=== PATIENT | female | born 1940 | race Caucasian/White ===

== ENCOUNTER 2018-05-24 10:16 | Emergency (ER) | payer MEDICARE, OTHER, SELFPAY ==
[2018-05-24 10:17] VITALS: BP 161/89; PULSE 56; RESP 14; TEMP 36.2; O2SAT 98; BMI 37.6
[2018-05-24 10:54] VITALS: BP 153/101; PULSE 53; RESP 15; O2SAT 95; O2SAT 97
--- NOTE | 2018-05-24 11:06 | ED.VISSUMM ---
- ER Visit Summary Date of Service: 05/24/18 Chief Complaint: Shortness of breath History of Present Illness: The patient is a 78 F Lady of intermittent shortness of breath for weeks. Denies any chest pain. No hemoptysis. No history of DVT or PE. Denies any leg pain or swelling. No recent travel or surgery. No recent hospitalization. She does get more short of breath with exertion primarily walking steps but again no chest pain. Currently she is symptom-free. She denies any fever. She has had a mild nonproductive cough. She has no known cardiac history of intermittent A. fib. No lung disease. Physical Examination: Female no acute distress. Vital signs are stable she is bradycardic at 56. Pulse ox 90% on room air sitting in bed. Currently she is symptom-free. H EENT exam unremarkable. Neck nontender no JVD. Lungs clear to auscultation bilaterally. Heart regular rhythm rate about 55 no murmur. Abdomen soft nontender normal bowel sounds no peritoneal signs. She is moving all 4 extremities. They are equal and symmetrical. Calves are nontender without edema or cords. Dorsi plantar flexion intact. Equal symmetrical corn cutter strength. Back exam nontender. Neurologically she is awake and alert with no focal motor or sensory deficits. Test Results: EKG shows sinus bradycardia rate of 53 with no acute ischemic changes. No acute abnormality. No change from prior EKG in 2015. CBC shows a white count of 10. Hemoglobin of 12. Electrolytes are unremarkable creatinine is 1.43. Glucose 190. Normal gap. She is on Coumadin her INR is 2.0. Her troponin is normal. Chest x-ray shows mild vascular seen consistent with possibly mild CHF. Emergency Department Course and Treatment: With intermittent shortness of breath. Has basically unremarkable exam. Treatment Plan: Repeat exam the patient is doing well at 1412. I went over all test results of both her and her and they are comfortable with her being discharged to home. She will follow-up with her primary care physician Dr. Moon at the [facility] Disposition: Discharge Impression: Acute dyspnea of uncertain etiology Renal insufficiency This note was generated with [employer] dictation software. It may contain incorrect words, spelling, and punctuation that were not noted in review of the chart prior to signing ED Disposition - Plan for ED Patient: Chief Complaint: Shortness of Breath Referrals: Marcelino Moon, [Primary Care Provider] -
--- NOTE | 2018-05-24 11:09 | ED.DCSUM_ITS ---
- ER Visit Summary Date of Service: 05/24/18 Chief Complaint: Shortness of breath History of Present Illness: The patient is a 78 F Lady of intermittent shortness of breath for weeks. Denies any chest pain. No hemoptysis. No history of DVT or PE. Denies any leg pain or swelling. No recent travel or surgery. No recent hospitalization. She does get more short of breath with exertion primarily walking steps but again no chest pain. Currently she is symptom-free. She denies any fever. She has had a mild nonproductive cough. She has no known cardiac history of intermittent A. fib. No lung disease. Physical Examination: Female no acute distress. Vital signs are stable she is bradycardic at 56. Pulse ox 90% on room air sitting in bed. Currently she is symptom-free. H EENT exam unremarkable. Neck nontender no JVD. Lungs clear to auscultation bilaterally. Heart regular rhythm rate about 55 no murmur. Abdomen soft nontender normal bowel sounds no peritoneal signs. She is moving all 4 extremities. They are equal and symmetrical. Calves are nontender without edema or cords. Dorsi plantar flexion intact. Equal symmetrical dining room hostess strength. Back exam nontender. Neurologically she is awake and alert with no focal motor or sensory deficits. Test Results: EKG shows sinus bradycardia rate of 53 with no acute ischemic changes. No acute abnormality. No change from prior EKG in 2015. CBC shows a white count of 10. Hemoglobin of 12. Electrolytes are unremarkable creatinine is 1.43. Glucose 190. Normal gap. She is on Coumadin her INR is 2.0. Her troponin is normal. Chest x-ray shows mild vascular seen consistent with possibly mild CHF. Emergency Department Course and Treatment: With intermittent shortness of breath. Has basically unremarkable exam. Treatment Plan: Repeat exam the patient is doing well at 1412. I went over all test results of both her and her and they are comfortable with her being discharged to home. She will follow-up with her primary care physician Dr. Moon at the [facility] Disposition: Discharge Impression: Acute dyspnea of uncertain etiology Renal insufficiency This note was generated with [employer] dictation software. It may contain incorrect words, spelling, and punctuation that were not noted in review of the chart prior to signing ED Disposition - Plan for ED Patient: Chief Complaint: Shortness of Breath Referrals: Marcelino Moon, [Primary Care Provider] -
[2018-05-24 11:35] LABS: Absolute Lymphocyte Count 2.45 X10^3/ul (0.83-4.51); Absolute Neutrophil Count 6.8 X10^3/uL (2.0-7.7); Basophil# 0.05 X10^3/uL; Basophil% 0.5 % (0-1); Eosinophil# 0.47 X10^3/uL; Eosinophils% 4.5 % (0-5); Hematocrit 39.2 % (37-47); Hemoglobin 12.8 g/dl (12.0-15.0); Lymphocyte # 2.45 X10^3/ul (4.0); Lymphocyte % 23.4 % (19-41); Mean Corp Hgb Conc 32.7 g/gl (32-36); Mean Corpuscular Volume 91.8 fL (81-99); Mean Platelet Vol. 11.7 fl (6.2-12.0); Monocyte# 0.65 X10^3/uL; Monocyte% 6.2 % (0-10); Neutrophil # 6.81 X10^3/uL (2.7-7.7); Neutrophil % 65.2 % (47-70); Platelet Count 274 K/mm3 (150-450); RBC Distribution Width CV 14.3 % (11.6-14.6); Red Blood Count 4.27 M/mm3 (4.2-5.4); White Blood Count 10.5 K/mm3 (4.4-11.0)
[2018-05-24 11:36] LABS: POSITIVE COUNT NO; POSITIVE DIFFERENTIAL NO; POSITIVE MORPHOLOGY NO
[2018-05-24 11:40] LABS: Prothrombin Time (Protime)PT. 23.1 SECONDS (11.7-14.9)
[2018-05-24 11:46] VITALS: BP 158/58; PULSE 53; RESP 14; O2SAT 96
[2018-05-24 11:48] LABS: Anion Gap 8 (5-15); BUN 40 mg/dL (7-18); Calcium,Total 8.8 mg/dL (8.5-10.1); Chloride 106 mmol/L (98-107); Creatinine, Serum 1.43 mg/dL (0.55-1.02); EST Glomerular Filtration Rate 38 mL/min (>60); Est Glom Filt Rate - Afr Amer 46 mL/min (>60); Estimated Creatinine Clearance 25.23 ml/min; Glucose 190 mg/dL (74-106); Potassium 4.4 mmol/L (3.5-5.1); Sodium Level 138 mmol/L (136-145)
[2018-05-24 13:34] VITALS: BP 159/57; PULSE 53; RESP 16; O2SAT 97
--- NOTE | 2018-05-24 14:14 | ED.DEP ---
ED Disposition - Plan for ED Patient: Disposition: Home or Assisted Living Chief Complaint: Shortness of Breath Instructions: ED Dyspnea Shortness of Breath Referrals: Marcelino Moon DO [Primary Care Provider] - As soon as possible Additional Instructions: Return if feeling worse. Otherwise follow-up your primary care physician.
[2018-05-24 14:30] VITALS: BP 167/51; PULSE 52; RESP 16; O2SAT 96
== END 2018-05-24 14:38 | disposition home or self-care (01) ==
PROVIDERS: Emergency Provider Emergency Medicine; Family Provider Student in an Organized Health Care Education/Training Program; PCP Student in an Organized Health Care Education/Training Program
DX: R06.00 Dyspnea, unspecified (principal); N28.9 Disorder of kidney and ureter, unspecified; R05 Cough; E11.9 Type 2 diabetes mellitus without complications; I10 Essential (primary) hypertension; E78.00 Pure hypercholesterolemia, unspecified; I48.91 Unspecified atrial fibrillation
CPT/HCPCS: 71045; 80048; 84484; 85025; 85610; 93005; 99285; A4216

== ENCOUNTER 2018-10-02 11:20 | Emergency (ER) | payer MEDICARE, OTHER, SELFPAY ==
[2018-10-02 11:20] VITALS: BP 200/73; PULSE 54; RESP 20; TEMP 36.1; O2SAT 96; BMI 38.9
--- NOTE | 2018-10-02 11:48 | EKG12_ITS ---
Test Reason : SOB Blood Pressure : / mmHG Vent. Rate : 052 BPM Atrial Rate : 052 BPM P-R Int : 196 ms QRS Dur : 104 ms QT Int : 472 ms P-R-T Axes : 048 016 045 degrees QTc Int : 438 ms Sinus bradycardia Otherwise normal ECG Confirmed by ALEJO DUTTA, SINA ([id number]), managing editor PHILL VAN ([id number]) on 10/04/2018 2:37:05 PM Referred By: LENNOX Confirmed By:SINA DHILLON MD
--- NOTE | 2018-10-02 11:48 | RAD_ITS ---
STUDY: X-RAY CHEST REASON FOR EXAM: Female, 78 years old. Shortness of breath for several weeks TECHNIQUE: PA and lateral views of the chest. COMPARISON: 05/24/2018 FINDINGS: EKG leads overlie the chest Lungs are expanded with superimposed interstitial edema and bilateral pleural effusions. Findings suggest CHF. Follow-up recommended to assure resolution. There is no demonstrated pleural abnormality. Normal size heart. Normal mediastinum and jamila. Normal visualized pulmonary arteries. There is atherosclerotic calcification of the aortic arch with tortuosity. There are diffuse degenerative changes of the visualized thoracic spine. Normal visualized ribs, clavicles, and shoulders. There is no demonstrated abnormality of the visualized soft tissue structures of the upper abdomen. RAD/Chest PA and Lateral IMPRESSION: Diffuse interstitial edema with bilateral pleural effusions. Follow-up recommended to assure resolution Electronically Signed: Anthony Rey MD at 12:57 EST , Service support ,
[2018-10-02 12:15] LABS: Absolute Lymphocyte Count 2.11 X10^3/ul (0.83-4.51); Absolute Neutrophil Count 8.8 X10^3/uL (2.0-7.7); Basophil# 0.03 X10^3/uL; Basophil% 0.3 % (0-1); Eosinophil# 0.31 X10^3/uL; Eosinophils% 2.6 % (0-5); Hematocrit 36.5 % (37-47); Hemoglobin 12.1 g/dl (12.0-15.0); Lymphocyte # 2.11 X10^3/ul (4.0); Lymphocyte % 17.6 % (19-41); Mean Corp Hgb Conc 33.2 g/gl (32-36); Mean Corpuscular Hgb 30.3 pg (27.0-32.0); Mean Corpuscular Volume 91.5 fL (81-99); Monocyte# 0.75 X10^3/uL; Monocyte% 6.3 % (0-10); Neutrophil # 8.76 X10^3/uL (2.7-7.7); Neutrophil % 73.1 % (47-70); Platelet Count 269 K/mm3 (150-450); RBC Distribution Width CV 14.4 % (11.6-14.6); RBC Distribution Width SD 47.1 fl (35.1-43.9); Red Blood Count 3.99 M/mm3 (4.2-5.4)
[2018-10-02 12:16] LABS: POSITIVE COUNT NO; POSITIVE DIFFERENTIAL NO; POSITIVE MORPHOLOGY NO
--- NOTE | 2018-10-02 12:17 | ED.DCSUM_ITS ---
- ER Visit Summary Date of Service: 10/02/18 Chief Complaint: Shortness of breath History of Present Illness: The patient is a 78 F presents with shortness of breath that has been waxing and waning over the past 2 months. Patient states this has gradually gotten worse throughout the day today. Patient went to an urgent care and was referred here. Patient states her breathing is worse if she walks up steps. Patient states her breathing improves when she stops to rest. Patient admits to a cough but denies any sputum. Patient also admits to some postnasal drainage. Patient denies any fevers but admits to subjective chills. Patient admits to some increased swelling of her lower legs. Patient states she has a history of lymphedema. Patient also states she has been having intermittent near syncopal episodes for the past year. Patient was evaluated in the emergency department for this. Patient states she has an appointment with a neurologist in 2 weeks. Physical Examination: Vital signs showed an elevated blood pressure of 200/73. Patient is afebrile. Patient is in no acute distress. Oral mucosa was pink and moist. Neck is supple. Trachea is midline. There is no JVD noted. Heart was regular and bradycardic. Lungs show bibasilar Rales. There is good respiratory effort noted. Abdomen is soft. Bowel sounds are normal. There is no tenderness. Extremities are intact. There is 2+ edema of the lower extremities bilaterally. Cranial nerves II through XII are intact. There are no focal motor or sensory deficits noted. Skin is warm and dry. There is no jaundice noted. Test Results: EKG showed sinus bradycardia with a rate of 52. There are no acute ST or T wave changes noted. Chest x-ray shows some evidence of congestive heart failure. CBC shows a slight leukocytosis of 12.0. Creatinine was slightly elevated at 38 and 1.4 however, this is stable for the patient. INR was therapeutic at 2.7. BNP was slightly elevated at 507. Emergency Department Course and Treatment: On reevaluation the patient's oxygen saturation was 95% on room air. However, when the patient stood to ambulate upon discharge her oxygen saturation dropped to 89. Patient was ambulated with a pulse oximeter reading and upon walking her oxygen saturation dropped into the upper 80s. Patient states she really wants to go home. Patient was given a dose of Lasix here. Patient was instructed to take another dose of Lasix when she gets home. Patient was instructed to return if her breathing gets worse in any way. Patient and her understood and were agreeable with the plan. All questions were answered. Disposition: Discharged home Impression: Congestive heart failure This note was generated with [employer] dictation software. It may contain incorrect words, spelling, and punctuation that were not noted in review of the chart prior to signing ED Disposition - Plan for ED Patient: Disposition: Home or Assisted Living Chief Complaint: Shortness of Breath Diagnosis: Congestive heart failure Instructions: ED CHF General Referrals: Marcelino Moon DO [Primary Care Provider] - Additional Instructions: Continue your Lasix as prescribed. You may take your afternoon dose when you get home.
[2018-10-02 12:19] LABS: International Normalized Ratio 2.7; Prothrombin Time (Protime)PT. 28.6 SECONDS (11.7-14.9)
[2018-10-02 12:20] LABS: Partial Thromboplast Time 44.3 Seconds (24.1-36.2)
[2018-10-02 12:24] LABS: Anion Gap 8 (5-15); BUN 38 mg/dL (7-18); Calcium,Total 8.8 mg/dL (8.5-10.1); Chloride 103 mmol/L (98-107); Creatinine, Serum 1.41 mg/dL (0.55-1.02); EST Glomerular Filtration Rate 38 mL/min (>60); Est Glom Filt Rate - Afr Amer 46 mL/min (>60); Estimated Creatinine Clearance 25.59 ml/min; Glucose 139 mg/dL (74-106); Potassium 4.7 mmol/L (3.5-5.1); Sodium Level 135 mmol/L (136-145)
[2018-10-02 12:26] VITALS: BP 167/56; BP 174/59; BP 180/74; PULSE 53; PULSE 54; PULSE 57; PULSE 59; RESP 25; TEMP 36.1; O2SAT 94
[2018-10-02 12:34] LABS: BNP,B-Type NATRIURETIC PEPTIDE 507.6 pg/mL (0-100)
[2018-10-02 14:45] VITALS: BP 166/59; PULSE 56; RESP 17; O2SAT 90
[2018-10-02 15:04] VITALS: O2SAT 93
[2018-10-02 15:12] VITALS: BP 166/59; PULSE 54; RESP 16; O2SAT 97
[2018-10-02] MEDS: Furosemide 40 MG Tablet PO (15:12)
== END 2018-10-02 15:21 | disposition home or self-care (01) ==
PROVIDERS: Emergency Provider Emergency Medicine; Family Provider Student in an Organized Health Care Education/Training Program; PCP Student in an Organized Health Care Education/Training Program
DX: I11.0 Hypertensive heart disease with heart failure (principal); I50.41 Acute combined systolic (congestive) and diastolic (congestive) heart failure; G51.0 Bell's palsy; R00.1 Bradycardia, unspecified; E11.9 Type 2 diabetes mellitus without complications; E78.00 Pure hypercholesterolemia, unspecified; I48.91 Unspecified atrial fibrillation; I89.0 Lymphedema, not elsewhere classified; Z79.4 Long term (current) use of insulin; Z79.82 Long term (current) use of aspirin
CPT/HCPCS: 71046; 80048; 83880; 85025; 85610; 85730; 93005; 99284

== ENCOUNTER 2018-10-04 13:52 | Inpatient (IN) | payer MEDICARE, OTHER, SELFPAY ==
[2018-10-04] VITALS (11 sets, daily range): BP systolic 152–171; BP diastolic 75–115; PULSE 80–97; RESP 16–18; TEMP 36.6–36.9; O2SAT 90–94; BMI 37.9; BMI 37.7
--- NOTE | 2018-10-04 14:06 | EKG12_ITS ---
Test Reason : PALPS Blood Pressure : / mmHG Vent. Rate : 090 BPM Atrial Rate : 241 BPM P-R Int : 000 ms QRS Dur : 102 ms QT Int : 384 ms P-R-T Axes : 000 015 056 degrees QTc Int : 469 ms Atrial fibrillation Abnormal ECG Confirmed by JOLENE SHIN MD ([id number]), development editor PHILL VAN ([id number]) on 10/08/2018 8:47:43 AM Referred By: ORA Confirmed By:JOLENE SHIN MD
--- NOTE | 2018-10-04 14:06 | RAD_ITS ---
STUDY: X-RAY CHEST REASON FOR EXAM: Female, 78 years old. Syncopal episode. TECHNIQUE: Single AP portable view of the chest. COMPARISON: Comparison is made with prior study dated October 02, 2018. FINDINGS: EKG electrodes are seen. Since prior study, the CHF has improved. Residual changes persist in the right infrahilar region suggestive of a possible scarring. Mild elevation of the right hemidiaphragm. There is no demonstrated pleural abnormality. There is mild cardiac enlargement. Normal mediastinum and jamila. Normal visualized pulmonary arteries. There is atherosclerotic calcification of the aortic arch with tortuosity. There are diffuse degenerative changes of the visualized thoracic spine. Normal visualized ribs, clavicles, and shoulders. There is no demonstrated abnormality of the visualized soft tissue structures of the upper abdomen. RAD/Chest 1 View (Portable) IMPRESSION: The CHF has cleared. Minimal residual increased markings in the right infrahilar region suggestive of atelectasis and/or scarring. Electronically Signed: Alvaro Martinez MD at 14:38 EST Tel [phone], Service support ,
--- NOTE | 2018-10-04 14:06 | CT_ITS ---
STUDY: CT BRAIN WITHOUT CONTRAST REASON FOR EXAM: Female, 78 years old. Near syncope. History of Garcia's palsy. RADIATION DOSAGE (If Supplied By Facility): CTDIvol = ( 44.99 ) mGy, DLP = ( 779.24 ) mGycm TECHNIQUE: Transaxial CT imaging of the brain was performed without administration of intravenous contrast material. Individualized dose optimization techniques were used for this CT. COMPARISON: Comparison is made with prior examination dated September 23, 2013. FINDINGS: Normal soft tissue structures. Normal calvarium. There is mild cerebral atrophy with widening of the extra-axial spaces and ventricular dilatation. Normal white matter tracts of the cerebral hemispheres. Normal basal ganglia and thalami. Normal brainstem. Normal cerebellum. There is no intracranial hemorrhage. There are no findings of an acute ischemic infarction. Atherosclerotic calcification of the cavernous portions of the internal carotid arteries bilaterally. Normal visualized paranasal sinuses. CT/Brain/Head without Contrast IMPRESSION: Chronic involutional changes of the brain. Electronically Signed: Alvaro Martinez MD at 14:39 EST Tel [phone], Service support ,
[2018-10-04] MEDS: 0.9% Normal Saline 1,000 ML 150 ML IV (14:16)
[2018-10-04 14:19] LABS: Absolute Lymphocyte Count 2.63 X10^3/ul (0.83-4.51); Basophil# 0.04 X10^3/uL; Basophil% 0.3 % (0-1); Eosinophil# 0.35 X10^3/uL; Hematocrit 40.2 % (37-47); Hemoglobin 13.1 g/dl (12.0-15.0); Lymphocyte # 2.63 X10^3/ul (4.0); Lymphocyte % 22.3 % (19-41); Mean Corp Hgb Conc 32.6 g/gl (32-36); Mean Corpuscular Hgb 29.7 pg (27.0-32.0); Mean Corpuscular Volume 91.2 fL (81-99); Mean Platelet Vol. 10.8 fl (6.2-12.0); Monocyte# 0.77 X10^3/uL; Monocyte% 6.5 % (0-10); Neutrophil % 67.7 % (47-70); Platelet Count 290 K/mm3 (150-450); RBC Distribution Width CV 14.8 % (11.6-14.6); RBC Distribution Width SD 48.9 fl (35.1-43.9); Red Blood Count 4.41 M/mm3 (4.2-5.4); White Blood Count 11.8 K/mm3 (4.4-11.0)
[2018-10-04 14:28] LABS: POSITIVE COUNT NO; POSITIVE DIFFERENTIAL NO; POSITIVE MORPHOLOGY NO
[2018-10-04 14:34] LABS: Anion Gap 8 (5-15); BUN 38 mg/dL (7-18); BUN/Creat Ratio 26.8 RATIO (10-20); Calcium,Total 9.3 mg/dL (8.5-10.1); Chloride 106 mmol/L (98-107); Creatinine, Serum 1.42 mg/dL (0.55-1.02); EST Glomerular Filtration Rate 38 mL/min (>60); Est Glom Filt Rate - Afr Amer 46 mL/min (>60); Estimated Creatinine Clearance 25.41 ml/min; Glucose 111 mg/dL (74-106); Potassium 4.5 mmol/L (3.5-5.1); Sodium Level 139 mmol/L (136-145)
--- NOTE | 2018-10-04 14:47 | NURSING ---
pt back from ct scan. prior to going down had 3.5 sec pause on monitor. dr. lindsay shown and printed for chart
--- NOTE | 2018-10-04 15:11 | ED.RN ---
attempted to do orthostatic vitals and when pt sat to side of bed and monitor displayed 5.8sec pause and pt symptomatic with saying ok here comes one of my spells i have. hold on a minute pt back into bed and rn discharge and dr. lindsay aware.
--- NOTE | 2018-10-04 15:53 | ED.VISSUMM ---
- ER Visit Summary Date of Service: 10/04/18 Chief Complaint: Syncope History of Present Illness: The patient is a [address] Rogers and Dr. Moon. She has a history of paroxysmal atrial fibrillation. She reports that for approximately 1 year off and on she is having episodes of near syncope. States that this seems to have worsened over the past week. States that today she has had 3-4 episodes where she gets a weird sensation that comes over the back of her head and she feels as though she is going to pass out. States that lasts a few seconds. She denies any chest pain with it. She does admit to a little palpitations. Patient reports that this is unchanged or affected by standing. However, she had an episode while she was standing today. She had a syncopal episode and fell and hit her head on the refrigerator. She denies any neck, back, shoulder, wrist, or hip pain. Physical Examination: Vitals: Stable. Afebrile. General: Well-nourished and well-developed. Head: Normocephalic atraumatic. Neck: Supple, no lymphadenopathy. No JVD. Nontender. Cardiovascular: Irregularly irregular rhythm with a 2 out of 6 systolic murmur. Respiratory: No respiratory distress. Clear to auscultation bilaterally. Abdominal: Soft, nontender, nondistended, normal bowel sounds. No guarding, rebound, or peritoneal signs. Back: Nontender. Extremities: Nontender, no edema. Skin: Normal color, no rash. Neurologic: Alert and oriented ?3. Cranial nerves II through XII are intact. Normal strength and sensation. Psych: Normal affect. Test Results: EKG is A. fib at 90 with no ischemic changes. Chest x-ray shows cardiomegaly. CT brain shows chronic changes. Troponin is negative. INR is pending. Chem-7 is more for glucose 111, BUN of 38, creatinine 1.42. CBC is more for white count of 11.8. Emergency Department Course and Treatment: While on the monitor in the emergency department the patient had multiple prolonged pauses of approximately 3-5 seconds that consistent with her symptomatic episodes. She had 1 of these during orthostatic vital signs and was near syncopal and helped back to bed. Treatment Plan: Patient was discussed with Dr. Spencer. She is currently on flecainide and Toprol. She will be admitted to the hospital and have medication adjustments. Patient was then discussed with Dr. Bowden. Disposition: Admitted in stable condition. Impression: 1. Atrial fibrillation on flecainide/Toprol. 2. Syncope. 3. Coumadin coagulopathy. This note was generated with [employer] dictation software. It may contain incorrect words, spelling, and punctuation that were not noted in review of the chart prior to signing ED Disposition - Plan for ED Patient: Chief Complaint: Syncope Referrals: Marcelino Moon DO [Primary Care Provider] -
[2018-10-04 16:05] LABS: International Normalized Ratio 3.1; Prothrombin Time (Protime)PT. 32.3 SECONDS (11.7-14.9)
--- NOTE | 2018-10-04 16:22 | PCM.HP.STD ---
Problem List (1) Garcia's palsy Status: Resolved Comment: left (2) CKD (chronic kidney disease) stage 2, GFR 60-89 ml/min Status: Chronic (3) Cerebrovascular disease Status: Chronic Comment: asympt small left thalamic infarct (4) Diabetes mellitus Status: Chronic (5) Dyslipidemia Status: Chronic (6) Gout Status: Chronic (7) HLD (hyperlipidemia) Status: Chronic (8) HTN (hypertension) Status: Chronic (9) Hypothyroid Status: Chronic (10) Osteoporosis Status: Chronic (11) Paroxysmal atrial fibrillation Status: Chronic Comment: on coumadin History of Present Illness Date of Admission: 10/04/18 Chief Complaint: Pre-syncope, shortness of breath. The patient is a 78 year old F who presents emergency room due to recurrent episodes of presyncope. Patient states she has had these episodes for approximately 1 year, increasing in severity. Patient states episodes usually last only a few minutes where she feels like she is going to pass out and then resolve on their own. She denies dizziness, lightheadedness, vision changes. Denies chest pain. Patient states today she had recurrent episodes of presyncope frequently throughout the day and decided to seek medical attention. Patient states she had a syncopal episode with fall in June 2018. She did not seek medical attention at that time. Patient follows with Dr. Morfin, F cardiology for paroxysmal atrial fibrillation. Patient states she came to the emergency room this week on Sunday where she was told she had CHF. She reports she refused admission at that time and decided to go home. She states she has had increased shortness of breath, lower extremity and abdominal swelling. She denies recent echo. Denies other cardiac history. She has a past medical history of chronic kidney disease stage II, hypertension, hyperlipidemia, hypothyroidism, osteoporosis, history of CVA, type 2 diabetes mellitus, paroxysmal atrial for ablation on chronic anticoagulation with Coumadin, gout. Past Medical History Past Medical History (Chronic Problems): Chronic Problems Diabetes mellitus (Chronic) Cerebrovascular disease (Chronic) asympt small left thalamic infarct Paroxysmal atrial fibrillation (Chronic) on coumadin Gout (Chronic) Osteoporosis (Chronic) Hypothyroid (Chronic) Dyslipidemia (Chronic) HTN (hypertension) (Chronic) HLD (hyperlipidemia) (Chronic) CKD (chronic kidney disease) stage 2, GFR 60-89 ml/min (Chronic) Allergies atorvastatin calcium [From Lipitor] Adverse Reaction (Verified 10/04/18 15:45) cough enalapril maleate [From Vasotec] Adverse Reaction (Verified 10/04/18 15:45) cough enalaprilat dihydrate [From Vasotec] Adverse Reaction (Verified 10/04/18 15:45) cough Home Medications: Ambulatory Orders Medication Instructions Recorded Albuterol Inhaler [Ventolin Hfa 2 puff INHALATION Q4H PRN PRN 08/10/15 (SP)] Allopurinol [Zyloprim] 300 mg PO DAILY 08/10/15 Amlodipine [Norvasc] 10 mg PO DAILY 08/10/15 Aspirin [Aspirin, Baby] 81 mg PO DAILY@0800 08/10/15 Cholecalciferol (VIT D3) [Vitamin 2,000 unit PO BID 08/10/15 D] Clonidine Patch [Catapres-Tts3] 0.3 mg TRANSDERM. Q7D 08/10/15 Flecainide [Tambocor] 50 mg PO DAILY 08/10/15 Folic Acid 1 mg PO DAILY@0800 08/10/15 Furosemide [Lasix] 40 mg PO BIDLX 08/10/15 Insulin Glargine,Hum.rec.anlog 27 unit SQ QHS 08/10/15 [Lantus] Insulin Lispro [Humalog] 10 unit SQ TIDCM 08/10/15 Metoprolol(XL)Succ [Toprol Xl 100 mg PO DAILY 08/10/15 (Beta Trang)] Spironolactone [Aldactone] 12.5 mg PO DAILY 08/10/15 Warfarin [Coumadin ([facility])] 4 mg PO SUTFRSA 05/24/18 Levothyroxine Sodium [Synthroid] 200 mcg PO DAILY 10/04/18 Pravastatin [Pravachol] 40 mg PO DAILY 10/04/18 Warfarin Sodium 6 mg PO MOTUWE 10/04/18 Surgical History: - - Tubal ligation Psychiatric History: No pertinent psych hx [employer]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 Denies: Chest Pain, Chest Pressure, Light Headedness Respiratory: Reports: Shortness of breath upon exertion. Denies: Cough, Shortness of breath at rest, Sputum production, Wheezing Gastrointestinal: Denies: Abdominal Pain, Nausea, Vomiting Genitourinary: Denies: Dysuria Musculoskeletal: Denies: Joint Pain, Joint Tenderness Skin: Reports: - - Chronic skin changes bilateral lower extremities with lymphedema. Denies: Rash, Wounds Neurological: Denies: Numbness, Tingling, Focal weakness Psychiatric: Denies: Anxiety, Depression, Homicidal Ideations, Suicidal Ideations Hematologic/ Lymphatic: Denies: Easy Bruising, Easy Bleeding VTE Information - Inpt Only VTE Present on Admission: No VTE Mechan Device Prophylaxis: None VTE Pharm Prophylaxis ordered?: Yes - Physical Exam General: Alert, Oriented x3, Cooperative, No apparent distress HEENT: Atraumatic, PERRLA, EOMI, Normocephalic Oral: Moist Mucosa Neck: Supple, No JVD, Negative Carotid Bruits Lungs: Clear to auscultation, Diminished Cardiovascular: - - Atrial for ablation, rate controlled. No murmur. Abdomen: Bowel Sounds Present, Soft, Non Tender, Non-Distended, Obese Extremities: No clubbing, No cyanosis, Edema - Chronic lymphedema bilateral lower extremities Skin: No rashes, No breakdown, - - Chronic skin changes bilateral lower extremity secondary to lymphedema with scattered intact fluid-filled blisters Musculoskeletal: No Tenderness to Palpation of Joints or Extremities Neurological: Cranial nerves II-XII grossly intact, Neuro grossly intact Psych/Mental Status: Normal Affect, Appropriate Vital Signs Temp Pulse Resp BP Pulse Ox 98.1 F 82 16 159/85 H 90 10/04/18 13:55 10/04/18 14:54 10/04/18 14:54 10/04/18 14:54 10/04/18 14:54 Oxygen Delivery Method Room Air Weight: 207 lb 7.28 oz Body Mass Index (BMI) 37.9 Finger Stick Blood Glucose 140 Laboratory Tests Past 24 Hrs 10/04/18 10/04/18 10/04/18 14:00 14:00 14:20 WBC 11.8 H RBC 4.41 Hgb 13.1 Hct 40.2 MCV 91.2 MCH 29.7 MCHC 32.6 RDW 14.8 H RDW Differential 48.9 H Plt Count 290 MPV 10.8 Immature Gran % (Auto) 0.200 Neut % (Auto) 67.7 Lymph % (Auto) 22.3 [place] % (Auto) 6.5 Eos % (Auto) 3.0 Baso % (Auto) 0.3 Absolute Neuts (auto) 8.0 H Absolute Lymphs (auto) 2.63 Total Counted Not Reportable PT 32.3 H INR 3.1 Sodium 139 Potassium 4.5 Chloride 106 Carbon Dioxide 25.0 Anion Gap 8 BUN 38 H Creatinine 1.42 H Estim Creat Clear Calc 25.41 Est GFR (MDRD) Af Amer 46 L Est GFR (MDRD) Non-Af 38 L BUN/Creatinine Ratio 26.8 H Glucose 111 H Calcium 9.3 Troponin I < 0.015 Assessment/Plan All Active Problems Garcia's palsy (Resolved) 1. Recurrent presyncope- suspect secondary to recurrent multiple prolonged cardiac pauses as noted on telemetry. Monitor telemetry. Check TSH, mag. Obtain echo. Trend enzymes. Hold flecainide. Metoprolol reduced to 50 milligrams daily. Check orthostatic vitals. Fall precautions. Brain CT on admission with chronic changes. 2. Recurrent multiple prolonged cardiac pauses-hold flecainide. Reduce home metoprolol regimen to 50 mg daily. Consult cardiology. Monitor telemetry. 3. Mild acute on chronic diastolic CHF-chest x-ray on admission with improved CHF. Minimal residual increased markings in the right infrahilar region. Echocardiogram 2012 with EF 70%. IV Lasix 40 mg twice daily. Strict I&O. Daily weight. Denzel wraps bilateral lower extremities. Repeat echocardiogram. 4. Chronic lymphedema-Denzel wraps bilateral lower extremities. 5. Paroxysmal atrial fibrillation on chronic anticoagulation with Coumadin-INR 3.1. Rate controlled. Adjustment of flecainide and metoprolol as noted above. 6. Chronic kidney disease stage II- at baseline. Follows with Dr. Hendrickson. Trend BMP. 7. Hypertension-mildly elevated on admission. Continue home amlodipine, clonidine, spironolactone. PRN hydralazine for systolic blood pressure greater than 160. Metoprolol and flecainide regimen reduced. 8. Hyperlipidemia-continue statin. 9. History of CVA-continue aspirin, statin. 10. Type 2 diabetes [id number] AC at bedtime with sliding scale insulin. Continue home Lantus regimen and scheduled Humalog. 11. Hypothyroidism-continue Synthroid regimen. Check TSH. 12. Osteoporosis 13. Gout-continue allopurinol regimen. DVT prophylaxis- coumadin. This patient was seen by MAYRA Luque under the supervision of Dr. Bowden.
--- NOTE | 2018-10-04 17:22 | ECHOD_ITS ---
Reason For Study: CHF Procedure This was a 2D Doppler, Color Flow transthoracic echocardiogram. Exam performed portable in patient room. Left Ventricle Mild concentric left ventricular hypertrophy. The estimated ejection fraction is 75 %. No regional wall motion abnormalities noted. Right Ventricle Mildly dilated right ventricle. Normal systolic function. Atria The left atrium is moderately enlarged. Normal right atrium. Normal atrial septum. Mitral Valve Mild diffuse mitral valve thickening. Moderate mitral annular calcification extending into the posterior leaflet. Mild-Moderate (1-2+) posteriorly directed mitral valve insufficiency. Tricuspid Valve Normal tricuspid valve. Mild (1+) tricuspid valve insufficiency. Right ventricular systolic pressure estimated to be 51 mmHg. Moderate pulmonary hypertension. Aortic Valve Trisinus/trileaflet aortic valve. Mild diffuse aortic valve thickening. Pulmonic Valve Normal pulmonic valve. Trivial pulmonic valve insufficiency. Great Vessels Normal aortic root. Normal arch. Normal inferior vena cava. Inferior vena cava collapse with sniff. Pericardium/Pleural No pericardial effusion. MMode/2D Measurements & Calculations LVIDd: 3.7 cm IVSd: 1.5 cm LVOT diam: 2.0 cm LVIDs: 2.7 cm LVPWd: 1.2 cm LVOT area: 3.1 cm2 RVDd: 3.7 cm FS: 27.4 % Ao root diam: 3.4 cm LAV(MOD-bp): 45.6 ml LVAd ap4: 21.5 cm2 LAV(MOD-bp) Indexed: 23.0 ml/m2 EDV(MOD-sp4): 55.7 ml LAV(MOD-sp2): 49.4 ml EDV(sp4-el): 56.5 ml LAV(MOD-sp4): 41.8 ml LVAs ap4: 11.6 cm2 ESV(MOD-sp4): 18.9 ml ESV(sp4-el): 19.0 ml EF(MOD-sp4): 66.0 % EF(sp4-el): 66.4 % SV(MOD-sp4): 36.8 ml SV(sp4-el): 37.5 ml LA A4 area: 17.4 cm2 LA dimension(2D): 4.9 cm RA A4 area: 18.2 cm2 Time Measurements MV dec time: 0.14 sec Doppler Measurements & Calculations MV E max vineet: 142.9 cm/sec MV V2 max: 168.2 cm/sec MV P1/2t max vineet: 156.3 cm/sec MV max P.3 mmHg MV P1/2t: 112.5 msec MV V2 mean: 100.8 cm/sec MV dec slope: 407.0 cm/sec2 MV mean P.8 mmHg MVA(P1/2t): 2.0 cm2 MV V2 VTI: 31.0 cm MVA(VTI): 2.3 cm2 Ao V2 max: 192.8 cm/sec LV V1 max: 107.7 cm/sec SV(LVOT): 71.5 ml Ao max P.9 mmHg LV V1 max P.6 mmHg Ao V2 mean: 125.1 cm/sec LV V1 mean P.5 mmHg Ao mean P.1 mmHg LV V1 mean: 75.0 cm/sec Ao V2 VTI: 38.6 cm LV V1 VTI: 22.8 cm BAILEY(I,D): 1.8 cm2 BAILEY(V,D): 1.8 cm2 PA V2 max: 126.1 cm/sec TR max vineet: 298.3 cm/sec TR max P.6 mmHg Interpretation Summary Mild concentric left ventricular hypertrophy. The estimated ejection fraction is 75 %. Mildly dilated right ventricle. The left atrium is moderately enlarged. Mild-Moderate (1-2+) posteriorly directed mitral valve insufficiency. Mild (1+) tricuspid valve insufficiency. Right ventricular systolic pressure estimated to be 51 mmHg. Moderate pulmonary hypertension. Compared to echo report dated 03/10/2013, LV function has remained the same, but RVSP has now increased from 30 to 51 mm Hg. Pt now appears to be in atrial fibrillation. Ordering Physician: Kayla Bowden Referring Physician: Marcelino Kerr Performed By: Griselda Posadas RDCS, RVT
[2018-10-04 17:58] LABS: Magnesium 2.2 mg/dL (1.6-2.6); T4 Free Direct 1.75 ng/dL (0.76-1.46); Thyroid Stim Hormone (TSH) 2.04 uIU/mL (0.358-3.74)
[2018-10-04 18:01] LABS: Bedside Glucose 124 mg/dL (70-110)
[2018-10-04] MEDS: Furosemide 40 MG/4 ML Vial IV (18:32)
[2018-10-04] MEDS: Insulin Lispro 100 UNIT/ML INSULN.PEN 10 UNIT SC (18:33)
[2018-10-04] MEDS: Insulin Lispro 100 UNIT/ML INSULN.PEN SC (22:08)
[2018-10-04 22:10] LABS: Bedside Glucose 183 mg/dL (70-110)
[2018-10-04] MEDS: Pravastatin 40 MG Tablet PO (22:11)
[2018-10-04] MEDS: Magnesium Hydroxide 30 ML UDC PO (22:22)
[2018-10-05] VITALS (14 sets, daily range): BP systolic 143–162; BP diastolic 61–82; PULSE 57–108; RESP 16–19; TEMP 36.6–36.9; O2SAT 92–96
--- NOTE | 2018-10-05 05:55 | EKG12_ITS ---
Test Reason : AM EKG Blood Pressure : / mmHG Vent. Rate : 090 BPM Atrial Rate : 094 BPM P-R Int : 000 ms QRS Dur : 100 ms QT Int : 400 ms P-R-T Axes : 000 016 055 degrees QTc Int : 489 ms Atrial fibrillation Abnormal ECG Confirmed by ALEJO DUTTA, SINA ([id number]), school photograph editor PHILL VAN ([id number]) on 10/10/2018 10:57:30 AM Referred By: DR ABURTO Confirmed By:SINA DHILLON MD
[2018-10-05] MEDS: Levothyroxine 100 MCG Tablet 200 MCG PO (05:57)
[2018-10-05 06:56] LABS: Bedside Glucose 122 mg/dL (70-110)
[2018-10-05 07:43] LABS: Absolute Lymphocyte Count 3.39 X10^3/ul (0.83-4.51); Absolute Neutrophil Count 5.6 X10^3/uL (2.0-7.7); Basophil# 0.04 X10^3/uL; Basophil% 0.4 % (0-1); Eosinophil# 0.59 X10^3/uL; Eosinophils% 5.7 % (0-5); Hematocrit 36.9 % (37-47); Hemoglobin 11.9 g/dl (12.0-15.0); Lymphocyte # 3.39 X10^3/ul (4.0); Lymphocyte % 32.5 % (19-41); Mean Corp Hgb Conc 32.2 g/gl (32-36); Mean Corpuscular Hgb 29.6 pg (27.0-32.0); Mean Corpuscular Volume 91.8 fL (81-99); Mean Platelet Vol. 10.7 fl (6.2-12.0); Monocyte# 0.83 X10^3/uL; Neutrophil # 5.58 X10^3/uL (2.7-7.7); Neutrophil % 53.3 % (47-70); Platelet Count 247 K/mm3 (150-450); RBC Distribution Width CV 14.9 % (11.6-14.6); RBC Distribution Width SD 49.7 fl (35.1-43.9); Red Blood Count 4.02 M/mm3 (4.2-5.4); White Blood Count 10.4 K/mm3 (4.4-11.0)
[2018-10-05 07:44] LABS: POSITIVE COUNT NO; POSITIVE DIFFERENTIAL NO; POSITIVE MORPHOLOGY NO
[2018-10-05 07:54] LABS: International Normalized Ratio 3.6
[2018-10-05 07:58] LABS: Anion Gap 8 (5-15); BUN 33 mg/dL (7-18); BUN/Creat Ratio 26.2 RATIO (10-20); Calcium,Total 8.5 mg/dL (8.5-10.1); Chloride 108 mmol/L (98-107); Cholesterol 126 mg/dL (200); Creatinine, Serum 1.26 mg/dL (0.55-1.02); EST Glomerular Filtration Rate 44 mL/min (>60); Est Glom Filt Rate - Afr Amer 53 mL/min (>60); Estimated Creatinine Clearance 28.63 ml/min; Glucose 126 mg/dL (74-106); High Density Lipoprotein 35 mg/dL; Sodium Level 142 mmol/L (136-145); Triglycerides 113 mg/dL; Very Low Density Lipoprotein 23 mg/dL (5-40)
--- NOTE | 2018-10-05 08:52 | STE_ITS ---
Reason For Study: ATRIAL FIBRILLATION Stress Results Protocol: Dobutamine Stress Echocardiogram Maximum Predicted HR: 141 bpm Target HR: 120 bpm % Maximum Predicted HR: 89 % DurationHeart Rate Stage (mm:ss) (bpm) BP DoseComment BASELINE 72 172/78 NSR DSE- 10 MCG 3:17 75 161/6310.00 DSE- 20 MCG 3:12 96 170/7720.00 DSE- 30 MCG 3:56 125 169/6730.00NO SX RECOVERY 99 154/66 Stress Duration: 10:25 mm:ss Maximum Stress HR: 125 bpm Baseline Echocardiogram Findings The estimated ejection fraction is 75 %. Mild diffuse mitral valve thickening. Moderate mitral annular calcification extending into the posterior leaflet. Stress Echo Wall motion Data Resting WM Intermediate WM Stress WM Resting Wall Motion Wall Motion Stress No regional wall motion No regional wall motion abnormalities noted. abnormalities noted. EKG Data The baseline ECG displays normal sinus rhythm. The patient was titrated from 10 mcg to a maximun of 30 mcg of dobutamine during the stress. This was 88% of maximum predicted heart rate. The maximum heart rate attained was 125 beats per minute. During dobutamine infusion, there were no ST or T wave changes noted to suggest ischemia. No clinical angina was noted. No arrhythmias noted. Interpretation Summary The estimated ejection fraction is 75 %. Normal, adequate, dobutamine echocardiogram. Negative for ischemia by EKG and echocardiographic criteria. No anginal symptoms noted. No arrhythmias noted. Baseline hypertension with appropriate blood pressure response to dobutamine. Patient had excellent chronotropic response to dobutamine. Final LVEF of 75-80%. Test terminated due to the attainment of target heart rate. Ordering Physician: Tj^Marlo^^^ Referring Physician: HEIDY BURGESS Performed By: RR
[2018-10-05] MEDS: Folic Acid 1 MG Tablet PO (09:00)
[2018-10-05] MEDS: Aspirin 81 MG TAB.CHEW PO (09:00)
[2018-10-05] MEDS: Allopurinol 300 MG Tablet PO (09:00)
[2018-10-05] MEDS: Metoprolol(XL)Succ 50 MG Tablet PO (10:57)
[2018-10-05] MEDS: Spironolactone 25 MG Tablet 12.5 MG PO (10:57)
[2018-10-05] MEDS: Furosemide 40 MG/4 ML Vial IV (10:58)
[2018-10-05] MEDS: amLODIPine 10 MG Tablet PO (10:58)
[2018-10-05] MEDS: 0.9% NaCl Peripheral Flush Adult/Peds IV (11:04)
--- NOTE | 2018-10-05 11:10 | PCM.CONS.C ---
Problem List (1) Bradycardia Status: Acute (2) Pre-syncope Status: Acute (3) Paroxysmal atrial fibrillation Status: Chronic Comment: on coumadin (4) HTN (hypertension) Status: Chronic Reason for Consult Date of Consultation: 10/05/18 Reason for Consultation: Bradycardia, paroxysmal atrial fibrillation, hypertension, presyncope History of Present Illness: The patient is a 78 year old F, patient of Dr. Arreaga, with a history of atrial fibrillation approximately 5 years in time, no previous CVA, positive diabetes with associated Garcia's palsy, hypertension, hypercholesterolemia, no known coronary disease or stents. Over the past month, the patient has noted new onset fatigue, with associated tiredness, shortness of breath, episodes of lightheadedness, presyncope and a syncopal event in June. In addition during these episodes she develops chest pressure which relieves on its own. Patient cannot recall the last time she had a stress test. The patient sought medical attention last evening in the emergency room for episodes of lightheadedness and dizziness. She was found to have atrial fibrillation with slow ventricular response, with episodes of significant bradycardia and associated lightheadedness and dizziness during those episodes. It was found the patient was on Toprol xl 100 mg p.o.daily and flecainide therapy. The patient was admitted and ruled out for myocardial infarction x3 enzymes sets. She underwent a 2D echo with Doppler this morning which showed hyperdynamic LV function with an EF around 75%, mild to moderate posteriorly directed mitral regurgitation, and an RVSP of approximately 51 mmHg. Patient spontaneously converted back to normal sinus rhythm and underwent a dobutamine echocardiogram this morning. This was negative for inducible ischemia. Patient had excellent chronotropic response to dobutamine therapy. Of note the patient has significant hypertension during her visit in the hospital, which does not appear to be well controlled despite Toprol, Norvasc, and clonidine. patient is on significant clonidine therapy which may be contributing to her bradycardia.. [] Past Medical History Allergies/Adverse Reactions: Allergies atorvastatin calcium [From Lipitor] Adverse Reaction (Verified 10/04/18 15:45) cough enalapril maleate [From Vasotec] Adverse Reaction (Verified 10/04/18 15:45) cough enalaprilat dihydrate [From Vasotec] Adverse Reaction (Verified 10/04/18 15:45) cough Home Medications: Ambulatory Orders Medication Instructions Recorded Albuterol Inhaler [Ventolin Hfa 2 puff INHALATION Q4H PRN PRN 08/10/15 (SP)] Allopurinol [Zyloprim] 300 mg PO DAILY 08/10/15 Amlodipine [Norvasc] 10 mg PO DAILY 08/10/15 Aspirin [Aspirin, Baby] 81 mg PO DAILY@0800 08/10/15 Cholecalciferol (VIT D3) [Vitamin 2,000 unit PO BID 08/10/15 D] Clonidine Patch [Catapres-Tts3] 0.3 mg TRANSDERM. Q7D 08/10/15 Flecainide [Tambocor] 50 mg PO DAILY 08/10/15 Folic Acid 1 mg PO DAILY@0800 08/10/15 Furosemide [Lasix] 40 mg PO BIDLX 08/10/15 Insulin Glargine,Hum.rec.anlog 27 unit SQ QHS 08/10/15 [Lantus] Insulin Lispro [Humalog] 10 unit SQ TIDCM 08/10/15 Metoprolol(XL)Succ [Toprol Xl 100 mg PO DAILY 08/10/15 (Beta Trang)] Spironolactone [Aldactone] 12.5 mg PO DAILY 08/10/15 Warfarin [Coumadin ([facility])] 4 mg PO SUTHFRSA 05/24/18 Levothyroxine Sodium [Synthroid] 200 mcg PO DAILY 10/04/18 Pravastatin [Pravachol] 40 mg PO DAILY 10/04/18 Warfarin Sodium 6 mg PO MOTUWE 10/04/18 Past Medical History (Chronic Problems): Chronic Problems Diabetes mellitus (Chronic) Cerebrovascular disease (Chronic) asympt small left thalamic infarct Paroxysmal atrial fibrillation (Chronic) on coumadin Gout (Chronic) Osteoporosis (Chronic) Hypothyroid (Chronic) Dyslipidemia (Chronic) HTN (hypertension) (Chronic) HLD (hyperlipidemia) (Chronic) CKD (chronic kidney disease) stage 2, GFR 60-89 ml/min (Chronic) Surgical History: - - Tubal ligation Psychiatric History: No pertinent psych hx 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 Denies: Fever, Night Sweats Cardiovascular: Reports: Chest Discomfort at Rest, Peripheral Edema, Lightheadedness, Near Syncope. Denies: Chest Discomfort, Shortness of Breath, Orthopnea, PND, Palpitations, Dizziness, Syncope Respiratory: Denies: Cough, Sputum Production, Hemoptysis Gastrointestinal: Denies: Hematemesis, Hematochezia, Melena Genitourinary: Denies: Dysuria, Hematuria Skin: Denies: Rash Subjectve: Patient laying in bed, no acute distress. Objective: Vital Signs Temp Pulse Resp BP Pulse Ox 98.0 F 102 H 17 143/82 H 92 10/05/18 08:53 10/05/18 10:57 10/05/18 08:53 10/05/18 08:53 10/05/18 08:53 Oxygen Delivery Method Room Air Weight: 203 lb 4.259 oz Body Mass Index (BMI) 37.7 Finger Stick Blood Glucose 140 Intake and Output for Last 24 Hours 10/03/18 10/04/18 10/05/18 23:59 23:59 23:59 Intake Total 360 / 360 240 / 240 Output Total 1700 / 1700 800 / 800 Balance -1340 / -1340 -560 / -560 General: Awake, Alert, Oriented x 3 HEENT: PERRL, EOMI, Sclera Non Icteric Neck: Supple, Good ROM, No Lymph Node Enlargement Lungs: Clear to auscultation Cardiovascular: Regular Rhythm, Normal S1, Normal S2, No Rubs, No Gallops Murmur Murmur: Grade 2/6, Holosystolic Vascular: No Carotid Bruits, Normal Femoral Pulses, Normal Radial Pulses, Normal Dorsalis Pedal Pulse, Normal Posterior Tibial Pulses Abdomen: Bowel Sounds Present, Soft, Non Tender, No HSM, No Organomegaly Extremities: No Cyanosis, No Clubbing, No edema Neurological: No Focal Motor or Sensory Deficit 10/04/18 14:00: WBC 11.8 H, RBC 4.41, Hgb 13.1, Hct 40.2, MCV 91.2, MCH 29.7, MCHC 32.6, RDW 14.8 H, RDW Differential 48.9 H, Plt Count 290, MPV 10.8, Immature Gran % (Auto) 0.200, Neut % (Auto) 67.7, Lymph % (Auto) 22.3, [place] % (Auto) 6.5, Eos % (Auto) 3.0, Baso % (Auto) 0.3, Absolute Neuts (auto) 8.0 H, Total Counted Not Reportable 10/04/18 14:00: Sodium 139, Potassium 4.5, Chloride 106, Carbon Dioxide 25.0, Anion Gap 8, BUN 38 H, Creatinine 1.42 H, Est GFR (MDRD) Af Amer 46 L, Est GFR (MDRD) Non-Af 38 L, BUN/Creatinine Ratio 26.8 H, Glucose 111 H, Calcium 9.3, Troponin I < 0.015 10/04/18 14:00: Magnesium 2.2 10/04/18 14:20: PT 32.3 H, INR 3.1 10/04/18 18:10: Troponin I < 0.015 10/04/18 21:20: Troponin I < 0.015 10/05/18 07:10: WBC 10.4, RBC 4.02 L, Hgb 11.9 L, Hct 36.9 L, MCV 91.8, MCH 29.6, MCHC 32.2, RDW 14.9 H, RDW Differential 49.7 H, Plt Count 247, MPV 10.7, Immature Gran % (Auto) 0.100, Neut % (Auto) 53.3, Lymph % (Auto) 32.5, [place] % (Auto) 8.0, Eos % (Auto) 5.7 H, Baso % (Auto) 0.4, Absolute Neuts (auto) 5.6, Total Counted Not Reportable 10/05/18 07:10: Sodium 142, Potassium 4.0, Chloride 108 H, Carbon Dioxide 26.0, Anion Gap 8, BUN 33 H, Creatinine 1.26 H, Est GFR (MDRD) Af Amer 53 L, Est GFR (MDRD) Non-Af 44 L, BUN/Creatinine Ratio 26.2 H, Glucose 126 H, Calcium 8.5, Triglycerides 113, Cholesterol 126, LDL Cholesterol 68, VLDL Cholesterol 23, HDL Cholesterol 35 L 10/05/18 07:10: PT 36.0 H, INR 3.6 H* Rhythm: EKG: ECHO: As above Stress Test: As above Cardiac Cath: PCI: CT Surgery: Holter monitor: EPS: PPM: CXR: Chest CT Scan: Assessment/Plan #1. Paroxysmal atrial fibrillation: The patient is back in normal sinus rhythm and underwent a dobutamine echocardiogram which showed no evidence of ischemia. Patient's main complaint is fatigue, lightheadedness, dizziness, presyncope, superimposed upon episodes of bradycardia. The patient is on significant rate controlling medications including flecainide, Toprol-XL 100 mg a day, and clonidine patch 0.3 mg every 7 days. Patient has had known atrial fibrillation for some time and is on Coumadin therapy. Her stress test is negative and she does not require diagnostic coronary angiogram at this time. Recommend continuing Coumadin therapy. Initially his her flecainide was held until her stress test was completed and due to her episodes of bradycardia. It appears she does better with sinus rhythm and would recommend continuing flecainide therapy since her stress test is negative. Would also recommend changing her Toprol to 50 mg p.o. twice daily, continuing Norvasc, and starting her on Cozaar 25 mg p.o. daily to assist with her antihypertensive measures. It is possible the patient's clonidine patch is also contributing to her episodes of bradycardia and positional dizziness. This may be exacerbated in the early days of her patch during the week. We may need to consider switching her to p.o. clonidine rather than the patch. Recommend ambulatory blood pressure measurements to determine if the patient develops hypertension which may be contributing to her symptoms as well. Patient initially presented with evidence on chest x-ray of congestive heart failure and she has had a significant increase in her pulmonary pressures for at least moderate pulmonary hypertension with RVSP of around 50 mmHg. This is significant increase over her echocardiogram in 2012 which showed pulmonary pressures in the 30s. The patient appears to have responded well to IV Lasix therapy. Recommend discontinuation of IV Lasix and switching her to Lasix 40 mg p.o. daily. Would recommend discontinuation of spironolactone. Her TSH is normal, and free T4 is slightly elevated. Continue Synthroid. 2. Thank you very much for the opportunity to participate in the cardiac care of your patient. Consultation took place between 1030 and 11:05 AM. Code Visit Inpatient E&M: 48744 In Hosp L2
--- NOTE | 2018-10-05 12:02 | CASEMGMT ---
Social Work Spoke with patient in room. Patient reporting to live at home with spouse in a 1-story home with 1-2 steps to enter the home. Patient reporting to have been independent prior to hospitalization and to have a walker and cane at home but to currently not use any DME. Patient reporting that patient has support from family and that one of patient's son's lives with patient. Patient prefers [facility] in [place] and has no concerns on returning back to home with spouse. Patient is currently on a therapy hold per Dr. de paz, waiting result of stress test. Support given. PLAN: Discharge to home with spouse pending no further needs being identified. Bernabe Hunter, INTERVENTIONAL CARDIOLOGIST, INSURANCE CLERK
[2018-10-05 12:20] LABS: Bedside Glucose 155 mg/dL (70-110)
--- NOTE | 2018-10-05 12:56 | PCM.PROGNOTE ---
Patient Problems: Active and Suspected Problems Bradycardia (Acute) Pre-syncope (Acute) Subjective: Patient seen and examined. Denies further episodes of presyncope although states she states she did feel it coming on last night before bed. Denies further episodes this morning. Denies chest pain, shortness of breath. - Physical Exam General: Alert, Oriented x3, Cooperative, No apparent distress HEENT: Atraumatic, PERRLA, EOMI, Normocephalic Neck: Supple, No JVD, Negative Carotid Bruits Lungs: Clear to auscultation, Normal air movement Cardiovascular: Regular rate, Regular Rhythm, Normal S1, Normal S2, No murmurs Abdomen: Bowel Sounds Present, Soft, Non Tender, Non-Distended Extremities: No clubbing, No cyanosis, No edema, Capillary Refill Less than 3 Seconds Skin: No rashes, No breakdown Musculoskeletal: No Tenderness to Palpation of Joints or Extremities Neurological: Cranial nerves II-XII grossly intact, Neuro grossly intact Psych/Mental Status: Normal Affect, Appropriate Vital Signs Temp Pulse Resp BP Pulse Ox 98.0 F 72 17 143/82 H 92 10/05/18 08:53 10/05/18 11:07 10/05/18 08:53 10/05/18 08:53 10/05/18 08:53 Oxygen Delivery Method Room Air Weight: 203 lb 4.259 oz Body Mass Index (BMI) 37.7 Finger Stick Blood Glucose 140 Intake and Output for Last 24 Hours 10/03/18 10/04/18 10/05/18 23:59 23:59 23:59 Intake Total 360 / 360 640 / 640 Output Total 1700 / 1700 900 / 900 Balance -1340 / -1340 -260 / -260 Laboratory Tests Past 24 Hrs 10/04/18 10/04/18 10/04/18 14:00 14:00 14:00 WBC 11.8 H RBC 4.41 Hgb 13.1 Hct 40.2 MCV 91.2 MCH 29.7 MCHC 32.6 RDW 14.8 H RDW Differential 48.9 H Plt Count 290 MPV 10.8 Immature Gran % (Auto) 0.200 Neut % (Auto) 67.7 Lymph % (Auto) 22.3 Ashley % (Auto) 6.5 Eos % (Auto) 3.0 Baso % (Auto) 0.3 Absolute Neuts (auto) 8.0 H Absolute Lymphs (auto) 2.63 Total Counted Not Reportable PT INR Sodium 139 Potassium 4.5 Chloride 106 Carbon Dioxide 25.0 Anion Gap 8 BUN 38 H Creatinine 1.42 H Estim Creat Clear Calc 25.41 Est GFR (MDRD) Af Amer 46 L Est GFR (MDRD) Non-Af 38 L BUN/Creatinine Ratio 26.8 H Glucose 111 H Calcium 9.3 Magnesium 2.2 Troponin I < 0.015 Triglycerides Cholesterol LDL Cholesterol VLDL Cholesterol HDL Cholesterol TSH 2.04 Free T4 1.75 H 10/04/18 10/04/18 10/04/18 14:20 18:10 21:20 WBC RBC Hgb Hct MCV MCH MCHC RDW RDW Differential Plt Count MPV Immature Gran % (Auto) Neut % (Auto) Lymph % (Auto) Ashley % (Auto) Eos % (Auto) Baso % (Auto) Absolute Neuts (auto) Absolute Lymphs (auto) Total Counted PT 32.3 H INR 3.1 Sodium Potassium Chloride Carbon Dioxide Anion Gap BUN Creatinine Estim Creat Clear Calc Est GFR (MDRD) Af Amer Est GFR (MDRD) Non-Af BUN/Creatinine Ratio Glucose Calcium Magnesium Troponin I < 0.015 < 0.015 Triglycerides Cholesterol LDL Cholesterol VLDL Cholesterol HDL Cholesterol TSH Free T4 10/05/18 10/05/18 10/05/18 07:10 07:10 07:10 WBC 10.4 RBC 4.02 L Hgb 11.9 L Hct 36.9 L MCV 91.8 MCH 29.6 MCHC 32.2 RDW 14.9 H RDW Differential 49.7 H Plt Count 247 MPV 10.7 Immature Gran % (Auto) 0.100 Neut % (Auto) 53.3 Lymph % (Auto) 32.5 Ashley % (Auto) 8.0 Eos % (Auto) 5.7 H Baso % (Auto) 0.4 Absolute Neuts (auto) 5.6 Absolute Lymphs (auto) 3.39 Total Counted Not Reportable PT 36.0 H INR 3.6 H* Sodium 142 Potassium 4.0 Chloride 108 H Carbon Dioxide 26.0 Anion Gap 8 BUN 33 H Creatinine 1.26 H Estim Creat Clear Calc 28.63 Est GFR (MDRD) Af Amer 53 L Est GFR (MDRD) Non-Af 44 L BUN/Creatinine Ratio 26.2 H Glucose 126 H Calcium 8.5 Magnesium Troponin I Triglycerides 113 Cholesterol 126 LDL Cholesterol 68 VLDL Cholesterol 23 HDL Cholesterol 35 L TSH Free T4 POC Glucose 10/05/18 10/05/18 10/04/18 12:14 06:51 22:02 POC Glucose 155 H 122 H 183 H 10/04/18 17:51 POC Glucose 124 H Medical Necessity - Tobacco Use Smoking Status: Never smoker Tobacco Use: Secondhand Assessment/Plan All Active Problems Bradycardia (Acute) Pre-syncope (Acute) Garcia's palsy (Resolved) 1. Recurrent presyncope- suspect secondary to recurrent multiple prolonged cardiac pauses as noted on telemetry. Monitor telemetry. Echo shows an EF of 75%, mild to moderate mitral valve insufficiency, mild tricuspid valve insufficiency, RVSP estimated to be 51 mmHg moderate pulmonary hypertension. Troponin negative. Patient underwent stress echo which was negative for ischemia. Flecainide placed on hold on admission, resumed per cardiology. Metoprolol reduced to 50 mg daily. Fall precautions. Brain CT on admission with chronic changes. 2. Recurrent multiple prolonged cardiac pauses-Cardiology following. Reduce home metoprolol regimen to 50 mg daily. Monitor telemetry. Flecainide resumed by cardiology. May need adjustment of clonidine patch. 3. Mild acute on chronic diastolic CHF-chest x-ray on admission with improved CHF. Minimal residual increased markings in the right infrahilar region. Echocardiogram 2012 with EF 70%. IV Lasix discontinued. Begin Lasix 40 mg p.o. daily. Strict I&O. Daily weight. Denzel wraps bilateral lower extremities. Repeat echocardiogram with EF 75% as noted above. 4. Chronic lymphedema-Denzel wraps bilateral lower extremities. 5. Paroxysmal atrial fibrillation on chronic anticoagulation with Coumadin-Coumadin on hold due to supratherapeutic INR. Trend INR. 6. Chronic kidney disease stage II- at baseline. Follows with Dr. Hendrickson. Trend BMP. 7. Hypertension-mildly elevated on admission. Continue home amlodipine, clonidine. Metoprolol regimen reduced to 50 mg daily. Spironolactone discontinued per cardiology recommendations. PRN hydralazine for systolic blood pressure greater than 160. 8. Hyperlipidemia-continue statin. 9. History of CVA-continue aspirin, statin. 10. Type 2 diabetes [id number]-Iqon-Proly AC at bedtime with sliding scale insulin. Continue home Lantus regimen and scheduled Humalog. 11. Hypothyroidism-continue Synthroid regimen. 12. Osteoporosis 13. Gout-continue allopurinol regimen. DVT prophylaxis-Coumadin. This patient was seen by MAYRA Luque under the supervision of Dr. Giang.
[2018-10-05] MEDS: Losartan Potassium 25 MG Tablet PO (14:15)
[2018-10-05] MEDS: Insulin Lispro 100 UNIT/ML INSULN.PEN 10 UNIT SC ×2 (15:58→18:55)
[2018-10-05 16:06] LABS: Bedside Glucose 126 mg/dL (70-110)
[2018-10-05 18:10] LABS: Bedside Glucose 192 mg/dL (70-110)
[2018-10-05] MEDS: Insulin Lispro 100 UNIT/ML INSULN.PEN SC ×2 (18:55→23:13)
[2018-10-05] MEDS: Pravastatin 40 MG Tablet PO (23:15)
[2018-10-05] MEDS: Flecainide 100 MG Tablet 50 MG PO (23:16)
[2018-10-05 23:30] LABS: Bedside Glucose 156 mg/dL (70-110)
[2018-10-06] VITALS (16 sets, daily range): BP systolic 136–174; BP diastolic 59–78; PULSE 55–71; RESP 18–19; TEMP 36.4–37.2; O2SAT 92–96
[2018-10-06] MEDS: Levothyroxine 100 MCG Tablet 200 MCG PO (05:26)
[2018-10-06 06:28] LABS: Hematocrit 40.7 % (37-47); Hemoglobin 13.2 g/dl (12.0-15.0); Mean Corp Hgb Conc 32.4 g/gl (32-36); Mean Corpuscular Hgb 30.1 pg (27.0-32.0); Mean Corpuscular Volume 92.7 fL (81-99); Mean Platelet Vol. 11.5 fl (6.2-12.0); Platelet Count 261 K/mm3 (150-450); RBC Distribution Width CV 14.8 % (11.6-14.6); RBC Distribution Width SD 48.8 fl (35.1-43.9); Red Blood Count 4.39 M/mm3 (4.2-5.4); White Blood Count 12.1 K/mm3 (4.4-11.0)
[2018-10-06 06:30] LABS: International Normalized Ratio 3.2; Prothrombin Time (Protime)PT. 32.8 SECONDS (11.7-14.9)
[2018-10-06 06:33] LABS: Scan Indicated on CBC? Y/N NO
[2018-10-06 06:47] LABS: Anion Gap 10 (5-15); BUN 38 mg/dL (7-18); BUN/Creat Ratio 26.2 RATIO (10-20); Calcium,Total 8.8 mg/dL (8.5-10.1); Chloride 106 mmol/L (98-107); Creatinine, Serum 1.45 mg/dL (0.55-1.02); EST Glomerular Filtration Rate 37 mL/min (>60); Est Glom Filt Rate - Afr Amer 45 mL/min (>60); Estimated Creatinine Clearance 24.88 ml/min; Glucose 141 mg/dL (74-106); Potassium 4.6 mmol/L (3.5-5.1); Sodium Level 141 mmol/L (136-145)
[2018-10-06 07:06] LABS: Bedside Glucose 149 mg/dL (70-110)
[2018-10-06] MEDS: hydrALAZINE 20 MG/ML Vial 10 MG IV (07:16)
[2018-10-06] MEDS: 0.9% NaCl Peripheral Flush Adult/Peds IV (07:19)
[2018-10-06] MEDS: Furosemide 40 MG Tablet PO (08:45)
[2018-10-06] MEDS: Losartan Potassium 25 MG Tablet PO (08:45)
[2018-10-06] MEDS: amLODIPine 10 MG Tablet PO (08:45)
[2018-10-06] MEDS: Metoprolol(XL)Succ 50 MG Tablet PO (08:45)
[2018-10-06] MEDS: Folic Acid 1 MG Tablet PO (08:46)
[2018-10-06] MEDS: Aspirin 81 MG TAB.CHEW PO (08:46)
[2018-10-06] MEDS: Allopurinol 300 MG Tablet PO (08:46)
[2018-10-06] MEDS: Flecainide 100 MG Tablet 50 MG PO ×2 (08:46→22:39)
[2018-10-06] MEDS: Insulin Lispro 100 UNIT/ML INSULN.PEN 10 UNIT SC ×3 (08:48→16:58)
--- NOTE | 2018-10-06 09:55 | PCM.PN.CARD ---
Subjectve: Patient continues to improve. Heart rate is much better. Patient converted to normal sinus rhythm. Echocardiogram and stress test yesterday were thin normal limits. Patient feels much better and no further presyncopal episodes. Patient has had several episodes of hypertension. Objective: Vital Signs Temp Pulse Resp BP Pulse Ox 97.6 F L 71 18 151/72 H 95 10/06/18 08:41 10/06/18 08:45 10/06/18 08:41 10/06/18 08:41 10/06/18 08:41 Oxygen Delivery Method Room Air Weight: 202 lb 2.622 oz Body Mass Index (BMI) 37.7 Finger Stick Blood Glucose 140 Orthostatic Vital Signs Start: 10/05/18 14:08 Freq: q24h Status: Active Protocol: Activity Type Activity Date Activity User E-Sign Co-Sign Detail Recorded Client Recorded Date Recorded By Document 10/06/18 05:11 POLLY [id number] 10/06/18 05:18 POLLY 10/06/18 05:11 Orthostatic Vitals Standing -Blood Pressure (90/60-120/80) 146/72 H -Extremity Use Right Arm -Pulse Rate (60-100) 65 Sitting -Blood Pressure (90/60-120/80) 173/78 H -Extremity Use Right Arm -Pulse Rate (60-100) 60 Lying -Blood Pressure (90/60-120/80) 174/59 H -Extremity Use Right Arm -Pulse Rate (60-100) 63 Intake and Output for Last 24 Hours 10/04/18 10/05/18 10/06/18 23:59 23:59 23:59 Intake Total 360 / 360 940 / 940 440 / 440 Output Total 1700 / 1700 2050 / 2050 440 / 440 Balance -1340 / -1340 -1110 / -1110 0 / 0 General: Awake, Alert, Oriented x 3 HEENT: PERRL, EOMI, Sclera Non Icteric Neck: Supple, Good ROM, No Lymph Node Enlargement Lungs: Clear to auscultation Cardiovascular: Regular Rhythm, Normal S1, Normal S2, No Murmurs, No Rubs, No Gallops 10/06/18 05:22: WBC 12.1 H, RBC 4.39, Hgb 13.2, Hct 40.7, MCV 92.7, MCH 30.1, MCHC 32.4, RDW 14.8 H, RDW Differential 48.8 H, Plt Count 261, MPV 11.5 10/06/18 05:22: PT 32.8 H, INR 3.2 10/06/18 05:22: Sodium 141, Potassium 4.6, Chloride 106, Carbon Dioxide 25.0, Anion Gap 10, BUN 38 H, Creatinine 1.45 H, Est GFR (MDRD) Af Amer 45 L, Est GFR (MDRD) Non-Af 37 L, BUN/Creatinine Ratio 26.2 H, Glucose 141 H, Calcium 8.8 Rhythm: EKG: ECHO: Stress Test: Cardiac Cath: PCI: CT Surgery: Holter monitor: EPS: PPM: CXR: Chest CT Scan: Medical Necessity - Tobacco Use Smoking Status: Never smoker Tobacco Use: Secondhand Assessment/Plan #1. Paroxysmal atrial fibrillation: The patient is back in normal sinus rhythm and underwent a dobutamine echocardiogram which showed no evidence of ischemia. Patient's main complaint is fatigue, lightheadedness, dizziness, presyncope, superimposed upon episodes of bradycardia. The patient is on significant rate controlling medications including flecainide, Toprol-XL 100 mg a day, and clonidine patch 0.3 mg every 7 days. Patient has had known atrial fibrillation for some time and is on Coumadin therapy. Her stress test is negative and she does not require diagnostic coronary angiogram at this time. Recommend continuing Coumadin therapy. Initially his her flecainide was held until her stress test was completed and due to her episodes of bradycardia. It appears she does better with sinus rhythm and would recommend continuing flecainide therapy since her stress test is negative. Would also recommend changing her Toprol to 50 mg p.o. twice daily, continuing Norvasc. We started her on Cozaar 25 mg p.o. daily however her blood pressure still not adequately controlled. In order to smooth out her blood pressure medicines recommend increasing her Cozaar to 25 mg p.o. twice daily. It is possible the patient's clonidine patch is also contributing to her episodes of bradycardia and positional dizziness. This may be exacerbated in the early days of her patch during the week. We may need to consider switching her to p.o. clonidine rather than the patch. Recommend ambulatory blood pressure measurements to determine if the patient develops hypertension which may be contributing to her symptoms as well. Patient initially presented with evidence on chest x-ray of congestive heart failure and she has had a significant increase in her pulmonary pressures for at least moderate pulmonary hypertension with RVSP of around 50 mmHg. This is significant increase over her echocardiogram in 2012 which showed pulmonary pressures in the 30s. The patient appears to have responded well to IV Lasix therapy. Recommend discontinuation of IV Lasix and switching her to Lasix 40 mg p.o. daily. Would recommend discontinuation of spironolactone. Her TSH is normal, and free T4 is slightly elevated. Continue Synthroid. 2. Thank you very much for the opportunity to participate in the cardiac care of your patient. I discussed the patient's condition and care with the patient's son. If the patient has adequate blood pressure, has no further bradycardic episodes and no further presyncope, she may be discharged home. Discussed with Dr. Rogers this morning. She may follow-up with Dr. Rogers. Code Visit Inpatient E&M: [id number] [facility] L2
[2018-10-06 11:45] LABS: Bedside Glucose 251 mg/dL (70-110)
[2018-10-06] MEDS: Insulin Lispro 100 UNIT/ML INSULN.PEN SC ×2 (11:50→22:37)
--- NOTE | 2018-10-06 12:57 | PN_ITS ---
Patient Problems: Active and Suspected Problems Bradycardia (Acute) Pre-syncope (Acute) Subjective: Patient seen and examined. Denies further dizziness/syncope overnight. No significant findings on telemetry overnight. - Physical Exam General: Alert, Oriented x3, Cooperative HEENT: Atraumatic, PERRLA, EOMI, Normocephalic Neck: Supple, No JVD, Negative Carotid Bruits Lungs: Clear to auscultation, Normal air movement Cardiovascular: Regular Rhythm, Normal S1, Normal S2, No murmurs, Bradycardic Abdomen: Bowel Sounds Present, Soft, Non Tender, Non-Distended Extremities: No clubbing, No cyanosis, No edema, Capillary Refill Less than 3 Seconds Skin: No rashes, No breakdown Musculoskeletal: No Tenderness to Palpation of Joints or Extremities Neurological: Cranial nerves II-XII grossly intact, Neuro grossly intact Psych/Mental Status: Normal Affect, Appropriate Vital Signs Temp Pulse Resp BP Pulse Ox 97.6 F L 71 18 151/72 H 95 10/06/18 08:41 10/06/18 08:45 10/06/18 08:41 10/06/18 08:41 10/06/18 08:41 Oxygen Delivery Method Room Air Weight: 202 lb 2.622 oz Body Mass Index (BMI) 37.7 Finger Stick Blood Glucose 140 Orthostatic Vital Signs Start: 10/05/18 14:08 Freq: q24h Status: Active Protocol: Activity Type Activity Date Activity User E-Sign Co-Sign Detail Recorded Client Recorded Date Recorded By Document 10/06/18 05:11 POLLY [id number] 10/06/18 05:18 POLLY 10/06/18 05:11 Orthostatic Vitals Standing -Blood Pressure (90/60-120/80) 146/72 H -Extremity Use Right Arm -Pulse Rate (60-100) 65 Sitting -Blood Pressure (90/60-120/80) 173/78 H -Extremity Use Right Arm -Pulse Rate (60-100) 60 Lying -Blood Pressure (90/60-120/80) 174/59 H -Extremity Use Right Arm -Pulse Rate (60-100) 63 Intake and Output for Last 24 Hours 10/04/18 10/05/18 10/06/18 23:59 23:59 23:59 Intake Total 360 / 360 940 / 940 440 / 440 Output Total 1700 / 1700 2050 / 2050 440 / 440 Balance -1340 / -1340 -1110 / -1110 0 / 0 Laboratory Tests Past 24 Hrs 10/06/18 10/06/18 10/06/18 05:22 05:22 05:22 WBC 12.1 H RBC 4.39 Hgb 13.2 Hct 40.7 MCV 92.7 MCH 30.1 MCHC 32.4 RDW 14.8 H RDW Differential 48.8 H Plt Count 261 MPV 11.5 PT 32.8 H INR 3.2 Sodium 141 Potassium 4.6 Chloride 106 Carbon Dioxide 25.0 Anion Gap 10 BUN 38 H Creatinine 1.45 H Estim Creat Clear Calc 24.88 Est GFR (MDRD) Af Amer 45 L Est GFR (MDRD) Non-Af 37 L BUN/Creatinine Ratio 26.2 H Glucose 141 H Calcium 8.8 POC Glucose 10/06/18 10/06/18 10/05/18 11:10 06:53 23:12 POC Glucose 251 H 149 H 156 H 10/05/18 10/05/18 17:44 15:53 POC Glucose 192 H 126 H Medical Necessity - Tobacco Use Smoking Status: Never smoker Tobacco Use: Secondhand Assessment/Plan All Active Problems Bradycardia (Acute) Pre-syncope (Acute) Garcia's palsy (Resolved) 1. Recurrent presyncope- suspect secondary to recurrent multiple prolonged cardiac pauses as noted on telemetry. Monitor telemetry. Echo shows an EF of 75%, mild to moderate mitral valve insufficiency, mild tricuspid valve insufficiency, RVSP estimated to be 51 mmHg moderate pulmonary hypertension. Troponin negative. Patient underwent stress echo which was negative for ischemia. Flecainide placed on hold on admission, resumed per cardiology. Metoprolol reduced to 50 mg daily. Fall precautions. Brain CT on admission with chronic changes. No further presyncope/sinus pauses on telemetry overnight. We will continue to monitor overnight and discharge patient on 30-day event monitor given this is been an ongoing problem for patient for the past year, recently increasing in severity. 2. Recurrent multiple prolonged cardiac pauses-Cardiology following. Reduce home metoprolol regimen to 50 mg daily. Monitor telemetry. Flecainide resumed by cardiology. May need adjustment of clonidine patch. 3. Mild acute on chronic diastolic CHF-chest x-ray on admission with improved CHF. Minimal residual increased markings in the right infrahilar region. Echocardiogram 2012 with EF 70%. IV Lasix discontinued. Begin Lasix 40 mg p.o. daily. Strict I&O. Daily weight. Denzel wraps bilateral lower extremities. Repeat echocardiogram with EF 75% as noted above. 4. Chronic lymphedema-Denzel wraps bilateral lower extremities. 5. Paroxysmal atrial fibrillation on chronic anticoagulation with Coumadin- Coumadin on hold due to supratherapeutic INR. Trend INR. 6. Chronic kidney disease stage II- at baseline. Follows with Dr. Hendrickson. Trend BMP. 7. Hypertension-mildly elevated on admission. Continue home amlodipine, clonidine. Metoprolol regimen reduced to 50 mg daily. Spironolactone discontinued per cardiology recommendations. PRN hydralazine for systolic blood pressure greater than 160. Losartan added, adjust as needed. 8. Hyperlipidemia-continue statin. 9. History of CVA-continue aspirin, statin. 10. Type 2 diabetes [id number] AC at bedtime with sliding scale insulin. Continue home Lantus regimen and scheduled Humalog. 11. Hypothyroidism-continue Synthroid regimen. 12. Osteoporosis 13. Gout-continue allopurinol regimen. DVT prophylaxis-Coumadin. Discharge planning: Plan for discharge home with 30-day event monitor tomorrow if telemetry remains stable. This patient was seen by MAYRA Luque under the supervision of Dr. Giang.
--- NOTE | 2018-10-06 14:31 | NURSING ---
Pt ambulated in high with this RN. Pt was asymptomatic with activity; no dizziness, lightheadedness, or syncope. ECG reviewed after activity and pt remained NSR with HR in the 60's while ambulating. Ebenezer ABBOTT
[2018-10-06] MEDS: cloNIDine HCl 0.2 MG Patch TRANSDERM. (16:13)
[2018-10-06 16:26] LABS: Bedside Glucose 113 mg/dL (70-110)
[2018-10-06] MEDS: Losartan Potassium 50 MG Tablet PO (22:37)
[2018-10-06] MEDS: Pravastatin 40 MG Tablet PO (22:39)
[2018-10-07] VITALS (8 sets, daily range): BP systolic 147–175; BP diastolic 61–88; PULSE 53–70; RESP 16–17; TEMP 36.5–36.8; O2SAT 92–95
[2018-10-07 00:28] LABS: Bedside Glucose 157 mg/dL (70-110)
[2018-10-07 06:17] LABS: International Normalized Ratio 2.4; Prothrombin Time (Protime)PT. 25.9 SECONDS (11.7-14.9)
[2018-10-07] MEDS: Levothyroxine 100 MCG Tablet 200 MCG PO (06:20)
[2018-10-07 06:51] LABS: Bedside Glucose 174 mg/dL (70-110)
[2018-10-07] MEDS: Insulin Lispro 100 UNIT/ML INSULN.PEN SC ×2 (08:45→11:50)
[2018-10-07] MEDS: Insulin Lispro 100 UNIT/ML INSULN.PEN 10 UNIT SC ×2 (08:45→11:50)
[2018-10-07] MEDS: Furosemide 40 MG Tablet PO (08:52)
[2018-10-07] MEDS: Folic Acid 1 MG Tablet PO (08:52)
[2018-10-07] MEDS: Metoprolol(XL)Succ 50 MG Tablet PO (08:53)
[2018-10-07] MEDS: Aspirin 81 MG TAB.CHEW PO (08:54)
[2018-10-07] MEDS: Losartan Potassium 50 MG Tablet PO (08:54)
[2018-10-07] MEDS: Allopurinol 300 MG Tablet PO (08:54)
[2018-10-07] MEDS: Flecainide 100 MG Tablet 50 MG PO (08:54)
[2018-10-07] MEDS: amLODIPine 10 MG Tablet PO (08:55)
--- NOTE | 2018-10-07 11:23 | DCINST_ITS ---
- Discharge Diagnoses Current Active Problems: Current Active and Chronic Problems Bradycardia (Acute) Pre-syncope (Acute) You will use the following diet at home:: Cardiac Discharge Activity: Return to Normal Activity Call your doctor if you observe: Shortness of breath, Dizziness, Fainting spells, Chest pain Allergies/Adverse Reactions: Allergies atorvastatin calcium [From Lipitor] Adverse Reaction (Verified 10/04/18 15:45) cough enalapril maleate [From Vasotec] Adverse Reaction (Verified 10/04/18 15:45) cough enalaprilat dihydrate [From Vasotec] Adverse Reaction (Verified 10/04/18 15:45) cough Medications to take at Discharge Albuterol Inhaler [Ventolin Hfa] 2 puff INHALATION Q4H PRN PRN 08/10/15 Allopurinol [Zyloprim] 300 mg PO DAILY 08/10/15 Amlodipine [Norvasc] 10 mg PO DAILY 08/10/15 Aspirin [Aspirin, Baby] 81 mg PO DAILY@0800 08/10/15 Cholecalciferol (VIT D3) [Vitamin D3] 2,000 unit PO BID 08/10/15 Flecainide [Tambocor] 50 mg PO DAILY 08/10/15 Folic Acid 1 mg PO DAILY@0800 08/10/15 Insulin Glargine,Hum.rec.anlog [Lantus] 27 unit SQ QHS 08/10/15 Insulin Lispro [Humalog] 10 unit SQ TIDCM 08/10/15 Warfarin [Coumadin] 4 mg PO [id number] 05/24/18 Levothyroxine Sodium [Synthroid] 200 mcg PO DAILY 10/04/18 Pravastatin [Pravachol] 40 mg PO DAILY 10/04/18 Warfarin Sodium 6 mg PO MOTUWE 10/04/18 Clonidine Patch [Catapres-Tts1] 0.1 mg TRANSDERM. Q7D #1 patch 10/07/18 Furosemide [Lasix] 40 mg PO DAILY tablet 10/07/18 Losartan Potassium [Cozaar] 50 mg PO BID #60 tablet 10/07/18 Metoprolol(XL)Succ [Toprol Xl (Beta Trang)] 50 mg PO DAILY #30 tablet 10/07/18 The following prescriptions were given: Clonidine Patch [Catapres-Tts1] 0.1 mg TRANSDERM. Q7D #1 patch Metoprolol(XL)Succ [Toprol Xl (Beta Trang)] 50 mg PO DAILY #30 tablet Losartan Potassium [Cozaar] 50 mg PO BID #60 tablet Orders to be completed after discharge: 30-Day Event Recorder [[facility]] Location: None Selected Primary Care Physician: Marcelino Moon DO [Primary Care Provider] - Please follow up with your Primary Care Physician in: 1 Week Test Results: Test results from this visit will be discussed in further detail at your follow- up appointment, if applicable. Please Follow Up With: Adelfo Thompson MD When: 6 Weeks Proposed Discharge Date: 10/07/18
[2018-10-07 11:35] LABS: Bedside Glucose 196 mg/dL (70-110)
--- NOTE | 2018-10-07 11:37 | DS.PCM_ITS ---
<Raine Kim - Last Filed: 10/07/18 11:37> Discharge Date and Diagnosis Date of Admission: 10/04/18 Date of Discharge: 10/07/18 - Primary Discharge Diagnosis Active and Suspected Problems 1. Recurrent syncope suspected secondary to bradycardia with cardiac pauses 2. Recurrent cardiac pauses, improved 3. Mild acute on chronic diastolic CHF 4. Chronic lymphedema 5. Paroxysmal atrial fibrillation on chronic anticoagulation with Coumadin 6. Chronic kidney disease stage II 7. Hypertension 8. Hyperlipidemia 9. History of CVA 10. Type 2 diabetes mellitus 11. Hypothyroidism 12. Osteoporosis 13. Gout - Secondary Discharge Diagnosis Chronic Problems Diabetes mellitus (Chronic) Cerebrovascular disease (Chronic) asympt small left thalamic infarct Paroxysmal atrial fibrillation (Chronic) on coumadin Gout (Chronic) Osteoporosis (Chronic) Hypothyroid (Chronic) Dyslipidemia (Chronic) HTN (hypertension) (Chronic) HLD (hyperlipidemia) (Chronic) CKD (chronic kidney disease) stage 2, GFR 60-89 ml/min (Chronic) Hospital Course and Treatment Imaging Results: Diagnostic Data Brain CT 10/04/18 14:06 IMPRESSION: Chronic involutional changes of the brain. Electronically Signed: Alvaro Martinez MD at 14:39 EST Tel [phone], Service support , Chest X-Ray 10/04/18 14:06 IMPRESSION: The CHF has cleared. Minimal residual increased markings in the right infrahilar region suggestive of atelectasis and/or scarring. Electronically Signed: Alvaro Martinez MD at 14:38 EST Tel [phone], Service support , Dr. Spencer- Cardiology Operations: None Procedures: 2-D Echocardiogram, - - Stress echo Summary of Care Provided: The patient is a 78 year old F admitted 10/04/2018 due to presyncope, shortness of breath. 1. Recurrent presyncope- suspect secondary to recurrent multiple prolonged cardiac pauses as noted on telemetry. Echo shows an EF of 75%, mild to moderate mitral valve insufficiency, mild tricuspid valve insufficiency, RVSP estimated to be 51 mmHg moderate pulmonary hypertension. Troponin negative. Patient underwent stress echo which was negative for ischemia. Flecainide placed on hold on admission, resumed per cardiology. Metoprolol reduced to [address] on admission with chronic changes. No further presyncope/sinus pauses on telemetry overnight. 30-day event monitor at discharge. Patient will follow up with Dr. Thompson going forward. Previously followed with Dr. Morfin, F cardiology. Patient reports her follows with Dr. Thompson and requested to follow-up with him going forward. Medication adjustments per #2. 2. Recurrent multiple prolonged cardiac pauses-Cardiology following. Reduce home metoprolol regimen to 50 mg daily. Flecainide resumed by cardiology. Clonidine patch being tapered. Patient will continue clonidine patch 0.2 mg for 1 week followed by 0.1 mg for 1 week, then discontinue. Patient has not had any further significant pauses on telemetry for the past 48 hours. Patient will be discharged on 30-day event monitor. Follow-up with Dr. Thompson in 6 weeks. 3. Mild acute on chronic diastolic CHF-chest x-ray on admission with improved CHF. Minimal residual increased markings in the right infrahilar region. Echocardiogram 2012 with EF 70%. IV Lasix discontinued. Begin Lasix 40 mg p.o. daily. Repeat echocardiogram with EF 75% as noted above. 4. Chronic lymphedema-Denzel wraps bilateral lower extremities. 5. Paroxysmal atrial fibrillation on chronic anticoagulation with Coumadin- Coumadin on hold during admission due to supratherapeutic INR. INR 2.4 at discharge. Patient will resume prior Coumadin regimen with routine INR per PCP/cardiology. 6. Chronic kidney disease stage II- at baseline. Follows with Dr. Hendrickson. 7. Hypertension-Continue home amlodipine. Metoprolol regimen reduced to 50 mg daily. Spironolactone discontinued per cardiology recommendations. Losartan added, increased to 50 mg twice daily. 8. Hyperlipidemia-continue statin. 9. History of CVA-continue aspirin, statin. 10. Type 2 diabetes mellitus-continue home insulin regimen. 11. Hypothyroidism-continue Synthroid regimen. 12. Osteoporosis 13. Gout-continue allopurinol regimen. General: Alert, Oriented x3, Cooperative HEENT: Atraumatic, PERRLA, EOMI, Normocephalic Neck: Supple, No JVD, Negative Carotid Bruits Lungs: Clear to auscultation, Normal air movement Cardiovascular: Regular Rhythm, Normal S1, Normal S2, No murmurs, intermittent mild bradycardia Abdomen: Bowel Sounds Present, Soft, Non Tender, Non-Distended Extremities: No clubbing, No cyanosis, No edema, Capillary Refill Less than 3 Seconds Skin: No rashes, No breakdown Musculoskeletal: No Tenderness to Palpation of Joints or Extremities Neurological: Cranial nerves II-XII grossly intact, Neuro grossly intact Psych/Mental Status: Normal Affect, Appropriate Patient seen and examined prior to discharge. Physical assessment as noted above. Patient is stable for discharge with follow up recommendations as noted above. This patient was seen by MAYRA Luque under the supervision of Rosy. - Physical Exam Vital Signs Temp Pulse Resp BP Pulse Ox 97.7 F L 60 16 175/61 H 95 10/07/18 08:49 10/07/18 08:53 10/07/18 08:49 10/07/18 08:53 10/07/18 08:49 Oxygen Delivery Method Room Air Weight: 203 lb 0.732 oz Body Mass Index (BMI) 37.7 Finger Stick Blood Glucose 140 Orthostatic Vital Signs Start: 10/05/18 14:08 Freq: q24h Status: Active Protocol: Activity Type Activity Date Activity User E-Sign Co-Sign Detail Recorded Client Recorded Date Recorded By Document 10/07/18 06:06 POLLY [id number] 10/07/18 06:15 POLLY 10/07/18 06:06 Orthostatic Vitals Standing -Blood Pressure (90/60-120/80) 148/67 H -Extremity Use Right Arm -Pulse Rate (60-100) 63 Sitting -Blood Pressure (90/60-120/80) 161/88 H -Extremity Use Right Arm -Pulse Rate (60-100) 62 Lying -Blood Pressure (90/60-120/80) 147/66 H -Extremity Use Right Arm -Pulse Rate (60-100) 57 L Intake and Output for Last 24 Hours 10/05/18 10/06/18 10/07/18 23:59 23:59 23:59 Intake Total 940 / 940 1300 / 1300 380 / 380 Output Total 2049 / 2049 890 / 890 500 / 500 Balance -1110 / -1110 410 / 410 -120 / -120 Laboratory Tests Past 24 Hrs 10/07/18 05:45 PT 25.9 H INR 2.4 POC Glucose 10/07/18 10/06/18 10/06/18 06:43 22:26 16:06 POC Glucose 174 H 157 H 113 H 10/06/18 11:10 POC Glucose 251 H Discharge Diet: Low fat/ Low Cholesterol Discharge Activity: Return to Normal Activity Call your doctor if you observe: Shortness of breath, Dizziness, Fainting spells, Chest pain Home Medications: Medications to take at Discharge Albuterol Inhaler [Ventolin Hfa] 2 puff INHALATION Q4H PRN PRN 08/10/15 Allopurinol [Zyloprim] 300 mg PO DAILY 08/10/15 Amlodipine [Norvasc] 10 mg PO DAILY 08/10/15 Aspirin [Aspirin, Baby] 81 mg PO DAILY@0800 08/10/15 Cholecalciferol (VIT D3) [Vitamin D3] 2,000 unit PO BID 08/10/15 Flecainide [Tambocor] 50 mg PO DAILY 08/10/15 Folic Acid 1 mg PO DAILY@0800 08/10/15 Insulin Glargine,Hum.rec.anlog [Lantus] 27 unit SQ QHS 08/10/15 Insulin Lispro [Humalog] 10 unit SQ TIDCM 08/10/15 Warfarin [Coumadin] 4 mg PO SUTHFRSA 05/24/18 Levothyroxine Sodium [Synthroid] 200 mcg PO DAILY 10/04/18 Pravastatin [Pravachol] 40 mg PO DAILY 10/04/18 Warfarin Sodium 6 mg PO MOTUWE 10/04/18 Clonidine Patch [Catapres-Tts1] 0.1 mg TRANSDERM. Q7D #1 patch 10/07/18 Furosemide [Lasix] 40 mg PO DAILY tablet 10/07/18 Losartan Potassium [Cozaar] 50 mg PO BID #60 tablet 10/07/18 Metoprolol(XL)Succ [Toprol Xl (Beta Trang)] 50 mg PO DAILY #30 tablet 10/07/18 Following Prescrptions Were Given to Patient: Clonidine Patch [Catapres-Tts1] 0.1 mg TRANSDERM. Q7D #1 patch Metoprolol(XL)Succ [Toprol Xl (Beta Trang)] 50 mg PO DAILY #30 tablet Losartan Potassium [Cozaar] 50 mg PO BID #60 tablet Other Amb Orders: 30-Day Event Recorder [[facility]] Location: None Selected Primary Care Physician: Marcelino Moon DO [Primary Care Provider] - Please follow up with your Primary Care Physician in: 1 Week Please Follow Up With: Adelfo Thompson MD When: 6 Weeks Disposition: Home Minutes spent on discharge:: 35 Patient Condition:: Stable Medical Necessity - Tobacco Use Smoking Status: Never smoker Tobacco Use: Secondhand Meaningful Use Info Meaningful Use Diagnoses (Choose all that apply): CHF - CHF DENZEL/ARB ordered at discharge?: Yes Documented LVEF (%): 70 <Phong Gallegos F - Last Filed: 10/07/18 12:57> Discharge Date and Diagnosis - Secondary Discharge Diagnosis Chronic Problems Diabetes mellitus (Chronic) Cerebrovascular disease (Chronic) asympt small left thalamic infarct Paroxysmal atrial fibrillation (Chronic) on coumadin Gout (Chronic) Osteoporosis (Chronic) Hypothyroid (Chronic) Dyslipidemia (Chronic) HTN (hypertension) (Chronic) HLD (hyperlipidemia) (Chronic) CKD (chronic kidney disease) stage 2, GFR 60-89 ml/min (Chronic) Hospital Course and Treatment Summary of Care Provided: The patient is a 78 year old F [] - Physical Exam Vital Signs Temp Pulse Resp BP Pulse Ox 97.7 F L 60 16 148/64 H 94 10/07/18 11:23 10/07/18 11:23 10/07/18 11:23 10/07/18 11:23 10/07/18 11:23 Oxygen Delivery Method Room Air Weight: 203 lb 0.732 oz Body Mass Index (BMI) 37.7 Finger Stick Blood Glucose 140 Orthostatic Vital Signs Start: 10/05/18 14:08 Freq: q24h Status: Active Protocol: Activity Type Activity Date Activity User E-Sign Co-Sign Detail Recorded Client Recorded Date Recorded By Document 10/07/18 06:06 POLLY [id number] 10/07/18 06:15 POLLY 10/07/18 06:06 Orthostatic Vitals Standing -Blood Pressure (90/60-120/80) 148/67 H -Extremity Use Right Arm -Pulse Rate (60-100) 63 Sitting -Blood Pressure (90/60-120/80) 161/88 H -Extremity Use Right Arm -Pulse Rate (60-100) 62 Lying -Blood Pressure (90/60-120/80) 147/66 H -Extremity Use Right Arm -Pulse Rate (60-100) 57 L Intake and Output for Last 24 Hours 10/05/18 10/06/18 10/07/18 23:59 23:59 23:59 Intake Total 940 / 940 1300 / 1300 940 / 940 Output Total 2049 890 / 890 500 / 500 Balance -1110 / -1110 410 / 410 440 / 440 Laboratory Tests Past 24 Hrs 10/07/18 05:45 PT 25.9 H INR 2.4 POC Glucose 10/07/18 10/07/18 10/06/18 11:32 06:43 22:26 POC Glucose 196 H 174 H 157 H 10/06/18 16:06 POC Glucose 113 H Code Visit Addendum: Dr. Gallegos I personally examined the patient and reviewed the chart. I agree with the above. 88-year-old female presenting with frequent near syncopal episodes over the last year and states that she has over 30-40 episodes daily over the last 2 weeks prior to admission. She has lightheadedness and dizziness and is able to sit down and they can resolve and then it comes back. She sees cardiology as an outpatient, Dr. Rogers for her paroxysmal A. fib, but does not appear to have had a Holter monitor. During her stay here she had an echocardiogram which had a normal EF but has had an increase in her right ventricular systolic pressures from 30 to. 51 mmHg. She had a normal stress echo. Cardiology was consulted and and recommended that flecainide be continued, however her Toprol XL which was at 100 mg a day should be decreased to 50 mg p.o. twice daily, and to continue Norvasc. She was also started on Cozaar daily for better blood pressure control and and was ultimately increased to twice daily dosing. We will also wean her off of her clonidine. They also recommended discontinuation of her Aldactone and putting her on Lasix 40 mg p.o. daily. She will need close outpatient follow-up. She will have a Holter monitor on discharge to see if any of these episodes can be captured. Inpatient E&M: [id number] Disch Hosp
--- NOTE | 2018-10-08 11:58 | CASEMGMT ---
SCAR DC Phone Call DC DATE: 10/07/18 DC Disposition: Home LACE STRATA 3 Attempted call. No answer, message with call back information given if pt had questions re: f/u, prescriptions or homegoing instructions. Joycelyn MARTINEZN RN AC
== END 2018-10-07 13:15 | disposition home or self-care (01) | DRG 308 ==
LOC: ED 15:11 → PCU 16:57
PROVIDERS: Internal Medicine; Nurse Practitioner Family; Admitting Provider Family Medicine; Emergency Provider Emergency Medicine; Family Provider Student in an Organized Health Care Education/Training Program; PCP Student in an Organized Health Care Education/Training Program; Visit Provider Family Medicine
DX: R00.1 Bradycardia, unspecified (principal); I50.33 Acute on chronic diastolic (congestive) heart failure; I13.0 Hypertensive heart and chronic kidney disease with heart failure and stage 1 through stage 4 chronic kidney disease, or unspecified chronic kidney disease; G51.0 Bell's palsy; E11.22 Type 2 diabetes mellitus with diabetic chronic kidney disease; N18.2 Chronic kidney disease, stage 2 (mild); R55 Syncope and collapse; M10.9 Gout, unspecified; M81.0 Age-related osteoporosis without current pathological fracture; E03.9 Hypothyroidism, unspecified; E78.5 Hyperlipidemia, unspecified; I48.0 Paroxysmal atrial fibrillation; Z79.01 Long term (current) use of anticoagulants; I89.0 Lymphedema, not elsewhere classified; Z79.899 Other long term (current) drug therapy; Z79.4 Long term (current) use of insulin; Z79.82 Long term (current) use of aspirin; Z86.73 Personal history of transient ischemic attack (TIA), and cerebral infarction without residual deficits
CPT/HCPCS: 36415; 70450; 71045; 71046; 80048; 80061; 82962; 83735; 83880; 84439; 84443; 84484; 85025; 85027; 85610; 85730; 93005; 93017; 93306; 93350; 97161; 97166; 97802; 99283; 99284; J7030; J7040; Q9957; A4216; J1940

== ENCOUNTER → 2018-10-23 10:54 | Outpatient (CLI) | payer MEDICARE, OTHER, SELFPAY ==
[2018-10-23 09:46] VITALS: BMI 37.7
[2018-10-23 12:50] LABS: Hematocrit 42.1 % (37-47); Hemoglobin 13.5 g/dl (12.0-15.0); Mean Corp Hgb Conc 32.1 g/gl (32-36); Mean Corpuscular Hgb 29.9 pg (27.0-32.0); Mean Corpuscular Volume 93.1 fL (81-99); Mean Platelet Vol. 12.5 fl (6.2-12.0); Platelet Count 254 K/mm3 (150-450); Red Blood Count 4.52 M/mm3 (4.2-5.4); White Blood Count 9.6 K/mm3 (4.4-11.0)
[2018-10-23 12:57] LABS: Scan Indicated on CBC? Y/N NO
[2018-10-23 13:05] LABS: International Normalized Ratio 2.2; Prothrombin Time (Protime)PT. 24.2 SECONDS (11.7-14.9)
[2018-10-23 13:21] LABS: Anion Gap 10 (5-15); BUN 30 mg/dL (7-18); BUN/Creat Ratio 22.9 RATIO (10-20); Calcium,Total 9.5 mg/dL (8.5-10.1); Chloride 109 mmol/L (98-107); Creatinine, Serum 1.31 mg/dL (0.55-1.02); EST Glomerular Filtration Rate 42 mL/min (>60); Est Glom Filt Rate - Afr Amer 50 mL/min (>60); Glucose 120 mg/dL (74-106); Potassium 4.8 mmol/L (3.5-5.1); Sodium Level 143 mmol/L (136-145); Thyroid Stim Hormone (TSH) 0.25 uIU/mL (0.358-3.74)
--- OUTSIDE RECORDS SUMMARY | 2018-12-25 08:44 | XMS RPT_ITS ---
:1940 Author Organization OHIP Support Name Relationship Address Phone ORIENTAL ORTHODOXJEY Unavailable [address] + [place] [address] BETO GUY Unavailable [address] + [place] [address] R Unavailable Unavailable Unavailable JEY GUY Unavailable [address] + [place] [address] BETO GUY Unavailable [address] + [place] [address] R Unavailable Unavailable Unavailable JEY GUY Unavailable [address] + [place] [address] BETO GUY Unavailable [address] + [place] [address] R Unavailable Unavailable Unavailable JEY GUY Unavailable [address] + [place] [address] BETO GUY Unavailable [address] + [place] [address] R Unavailable Unavailable Unavailable JEY GUY Unavailable [address] + [place] [address] BETO GUY Unavailable [address] + [place] [address] R Unavailable Unavailable Unavailable JEY GUY Unavailable [address] + [place] [address] BETO GUY Unavailable [address] + [place] [address] R Unavailable Unavailable Unavailable JEY GUY Unavailable [address] + [place] [address] BETO GUY Unavailable [address] + [place] [address] R Unavailable Unavailable Unavailable JEY GUY Unavailable [address] + [place] [address] BETO GUY Unavailable [address] + [place] [address] R Unavailable Unavailable Unavailable ORIENTAL ORTHODOX, JEY Unavailable [address] + [place] [address] BETO GUY Unavailable [address] + [place] [address] R Unavailable Unavailable Unavailable ORIENTAL ORTHODOX, JEY Unavailable [address] + [place] [address] BETO GUY Unavailable [address] + [place] [address] R Unavailable Unavailable Unavailable ORIENTAL ORTHODOX, JEY Unavailable [address] + [place] [address] BETO GUY Unavailable [address] + [place] [address] R Unavailable Unavailable Unavailable ORIENTAL ORTHODOX, JEY Unavailable [address] + [place] [address] BETO GUY Unavailable [address] + [place] [address] R Unavailable Unavailable Unavailable ORIENTAL ORTHODOX, JEY Unavailable [address] + [place] [address] ORIENTAL ORTHODOXBETO EARL Unavailable [address] + [place] [address] R Unavailable Unavailable Unavailable ORIENTAL ORTHODOX, JEY Unavailable [address] + [place] [address] ORIENTAL ORTHODOXBETO EARL Unavailable [address] + [place] [address] R Unavailable Unavailable Unavailable ORIENTAL ORTHODOX, JEY Unavailable [address] + [place] [address] ORIENTAL ORTHODOX, BETO Unavailable [address] + [place] [address] R Unavailable Unavailable Unavailable ORIENTAL ORTHODOX, JEY Unavailable [address] + [place] [address] ORIENTAL ORTHODOX, BETO Unavailable [address] [phone] (2) [place] [address] R Unavailable Unavailable Unavailable ORIENTAL ORTHODOX, JEY Unavailable [address] + [place] [address] BETO GUY Unavailable [address] [phone] (2) [place] [address] R Unavailable Unavailable Unavailable JEY GUY Unavailable [address] + [place] [address] BETO GUY Unavailable [address] [phone] (2) [place] [address] R Unavailable Unavailable Unavailable Care Team Providers Name Role Phone [facility] Primary Care Unavailable Mann Walker Attending Unavailable Moon, Marcelino Primary Care Unavailable White, Kayla Admitting Unavailable Marlo Spencer Consulting Unavailable Phong Gallegos Attending Unavailable White, Kayla Admitting Unavailable Moon, Marcelino Primary Care Unavailable White, Kayla Consulting Unavailable White, Kayla Attending Unavailable White, Kayla Admitting Unavailable Marlo Spencer Attending Unavailable Moon, Marcelino Primary Care Unavailable Marlo Spencer Consulting Unavailable Sementi, Beatriz Consulting Unavailable White, Kayla Admitting Unavailable Moon, Marcelino Primary Care Unavailable Marlo Spencer Consulting Unavailable SemenKate doanBeatriz Attending Unavailable Sementi, Beatriz Consulting Unavailable White, Kayla Admitting Unavailable Marlo Spencer Attending Unavailable Moon, Marcelino Primary Care Unavailable Marlo Spencer Consulting Unavailable Sementi, Beatriz Consulting Unavailable White, Kayla Admitting Unavailable MAYRA Luque Attending Unavailable Moon, Marcelino Primary Care Unavailable Marlo Spencer Consulting Unavailable Sementi, Beatriz Consulting Unavailable Phong Gallegos Attending Unavailable White, Kayla Admitting Unavailable Moon, Marcelino Primary Care Unavailable Marlo Spencer Consulting Unavailable Phong Gallegos Consulting Unavailable MAYRA Luque Attending Unavailable MAYRA Luque Referring Unavailable Moon, Marcelino Primary Care Unavailable Nyla Frye Attending Unavailable Nyla Frye Referring Unavailable Moon, Marcelino Primary Care Unavailable Digna Rivera Attending Unavailable Adelfo Thompson Attending Unavailable Moon, Marcelino Referring Unavailable Adelfo Thompson Attending Unavailable Adelfo Thompson Referring Unavailable Moon, Marcelino Primary Care Unavailable [facility] Primary Care Unavailable Harjinder Collier Attending Unavailable Lenka Hendrickson Attending Unavailable Moon, Marcelino Primary Care Unavailable Marilyn, Jelani Attending Unavailable Marilyn, Jelani Referring Unavailable Moon, Marcelino Primary Care Unavailable Lisa Soria Attending Unavailable Moon, Marcelino Referring Unavailable MoodispaAdelfo jackson Attending Unavailable Marilyn, Jelani Referring Unavailable Moon, Marcelino Primary Care Unavailable Marilyn, Jelani Consulting Unavailable MOON, MARCELINO L Referring Unavailable MOON, MARCELINO L Referring Unavailable MOON, MARCELINO L Referring Unavailable CORNIELLO, SHANTELLE L (FEATHER TRIMMER) Attending Unavailable CORNIELLO, SHANTELLE L (FEATHER TRIMMER) Referring Unavailable CORNIELLO, SHANTELLE L (FEATHER TRIMMER) Referring Unavailable MOON, MARCELINO L Referring Unavailable MOON, MARCELINO L Referring Unavailable MOON, MARCELINO L Referring Unavailable CORNIELLO, SHANTELLE L (FEATHER TRIMMER) Attending Unavailable MOON, MARCELINO L Referring Unavailable CORNIELLO, SHANTELLE L (FEATHER TRIMMER) Referring Unavailable DONNIESERVANDO E Attending Unavailable MOON, MARCELINO L Referring Unavailable MOON, MARCELINO L Referring Unavailable MOON, MARCELINO L Referring Unavailable MOON, MARCELINO L Referring Unavailable MOON, MARCELINO L Referring Unavailable CORNIELLO, SHANTELLE L (FEATHER TRIMMER) Attending Unavailable CORNIELLO, SHANTELLE L (FEATHER TRIMMER) Referring Unavailable CORNIELLO, SHANTELLE L (FEATHER TRIMMER) Referring Unavailable CORNIELLO, SHANTELLE L (FEATHER TRIMMER) Referring Unavailable MOON, MARCELINO L Referring Unavailable MOON, MARCELINO L Referring Unavailable MOON, MARCELINO L Referring Unavailable MOON, MARCELINO L Referring Unavailable CORNIELLO, SHANTELLE L (FEATHER TRIMMER) Attending Unavailable SERVNADO FIELDS Attending Unavailable IMCA Referring Unavailable MOON, MARCELINO L Primary Care Unavailable PROBLEMS PROBLEMS DATE TYPE CONDITION / CODE ATTENDING STATUS SOURCE 10/28/2018 Unknown R55 - Syncope and Moodisparenetta, Adelfo Active [facility] collapse / [facility] R55(ICD-10) Hospital Repository 10/28/2018 Unknown I45.5 - Other Moodispaw, Adelfo Active [facility] specified heart Community block / Hospital I45.5(ICD-10) Repository 10/28/2018 Unknown I48.0 - Paroxysmal [place], Adelfo Active [facility] atrial fibrillation Community / I48.0(ICD-10) Hospital Repository 10/28/2018 Unknown R00.1 - Bradycardia, [place], Adelfo Active [facility] unspecified / Community R00.1(ICD-10) Hospital Repository 10/26/2018 Unknown I49.5 - Sick sinus Lisa Soria Active [facility] syndrome / Community I49.5(ICD-10) Hospital Repository 10/23/2018 Unknown Z79.01 - superintendent container terminal MoodAdelfo nuñez Active [facility] (current) use of Community anticoagulants / Hospital Z79.01(ICD-10) Repository 10/23/2018 Unknown I10 - Essential MoodAdelfo nuñez Active [facility] (primary) [facility] hypertension / Hospital I10(ICD-10) Repository 08/02/2018 Active Other terminal supervisor NA Active [facility]current[facility] Main therapy / [place] Z79.899(ICD-10) Repository 08/13/2015 Active Type 2 diabetes NA Active [facility] mellitus with Clinic Main hyperglycemia / [place] E11.65(ICD-10) Repository 08/13/2015 Active Type 2 diabetes NA Active [facility] mellitus with other Clinic Main diabetic [place] neurological Repository complication / E11.49(ICD-10) 07/11/2018 Active Syncope and collapse NA Active [facility] / R55(ICD-10) Clinic Main [place] Repository 12/23/2014 Active Hyperlipidemia, NA Active [facility] unspecified / [facility] Main E78.5(ICD-10) [place] Repository 03/25/2014 Active Chronic kidney NA Active [facility] disease, stage 3 [facility] Main (moderate) / [place] N18.3(ICD-10) Repository 01/02/2012 Active Vitamin D NA Active [facility] deficiency, Clinic Main unspecified / [place] E55.9(ICD-10) Repository 01/09/2018 Active Type 2 diabetes NA Active [facility] mellitus with [facility] Main diabetic neuropathy, [place] unspecified / Repository E11.40(ICD-10) 01/09/2018 Active Iron deficiency NA Active [facility] anemia, unspecified Clinic Main / D50.9(ICD-10) [place] Repository 01/09/2018 Active Hypothyroidism, NA Active [facility] unspecified / Clinic Main E03.9(ICD-10) [place] Repository PROCEDURES PROCEDURES No Procedure Records FoundRESULTS RESULTS BEDSIDE GLUCOSE Collected: 10/28/2018 Status: F Source: [facility] 9:17 PM REPLACED BY [facility] REPOSITORY TYPE CODE TESTS RESULT OUT OF REFERENCE UNITS RANGE LAB L501.080 70-110 mg/dL High BEDSIDE GLU 173 Result Comment: MANAGEMENT OF PATIENT CARE PER NURSING PROTOCOL Performed By: #### L501.080 #### [facility] Point of Care [address] [place] [address] BEDSIDE GLUCOSE Collected: 10/28/2018 Status: F Source: [place] 4:[place] [facility] [place] CODE TESTS RESULT OUT OF REFERENCE UNITS RANGE LAB L501.080 70-110 mg/dL High BEDSIDE GLU 142 Result Comment: MANAGEMENT OF PATIENT CARE PER NURSING PROTOCOL Performed By: #### L501.080 #### [facility] Point of Care [address] [place] [address] BEDSIDE GLUCOSE Collected: 10/28/2018 Status: F Source: [place] 2:04 PM [facility] [place] TYPE CODE TESTS RESULT OUT OF REFERENCE UNITS RANGE LAB L501.080 70-110 mg/dL High BEDSIDE GLU 114 Result Comment: MANAGEMENT OF PATIENT CARE PER NURSING PROTOCOL Performed By: #### L501.080 #### [facility] Point of Care [address] [place] [address] PROTIME W/INR Collected: 10/28/2018 Status: F Source: [place] 8:55 AM [facility] [place] TYPE CODE TESTS RESULT OUT OF REFERENCE UNITS RANGE LAB L9200.1001 11.9-14.4 SEC High PROTIME ISTAT 17.3 Result Comment: Reference Range 11.9 - 14.4 LAB L9200.2000 Normal INR ISTAT 1.50 Result Comment: Critical Value > 3.5 Performed By: #### L9200.0000 #### [facility] Point of Care [address] [place] [address] PACEMAKER CHECK Observed: 10/25/2018 Status: F Source: [place] 1:01 PM [facility] [place] [facility] [address] [place] [address] Pacemaker Check Date of Service: 10/25/18 1140 MR#: [id number] Acct: [id number] Name: REY GUY Rep #: [id number] : 1940 From: Lisa Soria Age/Sex: 78/F Location: [facility] Status: Signed Billing Codes Nurse, Teaching, Wound Ck (no charge): Yes 10/25/18 1141 <Electronically signed by Lisa Soria > Date Lisa Soria 10/25/18 1301<Electronically signed by Adelfo Thompson MD> Cosigner Signature: Date (if applicable) Adelfo Thompson MD CC: URINALYSIS, COMPLETE Collected: 10/25/2018 Status: F Source: [place] 10:44 AM [facility] [place] Order Comment: How was Urine Obtained? JAIL KEEPER TO SPECIFY TYPE CODE TESTS RESULT OUT OF RANGE REFERENCE UNITS LAB L400.3000 Yellow COLOR Normal Yellow LAB L400.3050 Clear Normal CLARITY Sl. Cloudy LAB L400.3200 Normal mg/dl Normal GLUCOSE, UR Normal LAB L400.3300 Negative mg/dL Normal BILIRUBIN URINE Negative LAB L400.3400 Negative mg/dl Normal KETONE UR Negative LAB L400.3465 1.002-1.030 Normal SP.GR. DIPSTX 1.005 LAB L400.3550 5.0 - 8.0 pH UR Normal 7.0 LAB L400.3600 Negative mg/dl High PROT DIPSTX 100 LAB L400.3700 Normal mg/dl Normal UROBILI Normal LAB L400.3750 Negative Normal NITRITE UR Negative LAB L400.3780 Negative /ul High 25 OCCULT BLOOD-UR LAB L400.3800 Negative /ul High LEUK ESTERASE 100 LAB L400.4050 0-5 /hpf WBC Normal 10-25 SEEN LAB L400.4100 0-5 /hpf Normal RBC-UA 0-5 SEEN LAB L400.4150 5-10 /hpf SQUAM Normal EPI 0-5 SEEN LAB L400.4300 None Seen /hpf 1+ Normal BACTERIA LAB L400.4350 <or=2+ /hpf 0 Normal MUCUS, URINE SEEN Performed By: #### L400.0001 #### [facility] [address] [place], [address] CARDIOLOGY VISIT Observed: 10/23/2018 Status: F Source: [place] REPORT 5:54 PM [facility] [place] [facility] [address] [place] [address] OFFICE VISIT Date of Service: 10/23/18 MR#: [id number] Acct: [id number] Name: REY GUY Rep #: [id number] : 1940 Provider: Adelfo Thompson MD Age/Sex: 78/F Location: [facility] Status: Signed HPI HPI Details: REY GUY, is a 78 F who presents to the office today for Outpatient cardiovascular follow up. She has previously been evaluated in the inpatient standpoint on 10/05/2018 for concerns of presyncope, bradycardia, paroxysmal atrial fibrillation superimposed upon hypertension by my colleague Dr. Marlo Spencer. She presents today for outpatient cardiovascular follow up based upon concerns of ongoing issues with respect and near syncope, evidence of sinus pauses/bradydysrhythmias, and paroxysmal atrial fibrillation. During her recent hospitalization she underwent further noninvasive evaluation. This included a transthoracic echocardiogram. Her left ventricle was thought to be normal with an LVEF of 75% with mild concentric LVH, her right ventricle was noted to have mild dilatation, the left atrium was thought to be moderately enlarged, the mitral valve and moderate mitral annular calcification with moderate diffuse thickening and mild to moderate MR, there was mild TR, there was mild diffuse aortic valve thickening, and the estimated RV systolic pressure was 51 mmHg compatible with pulmonary hypertension. She also had a dobutamine stress echocardiogram performed. Per report this was considered to be a negative study for inducible myocardial ischemia. Thus she did not go on to have diagnostic cardiac catheterization performed. Based upon her finding she was released home on adjusted dose medication and for the time being her beta fabio therapy was decreased to metoprolol XL 50 mg a day and her anti arrhythmic therapy was decreased to flecainide at 50 mg a day. She remained on anticoagulant therapy. Since being home she states she still has episodes where she feels strange sensation coming over her head. She states that she can feel as if she may want to lose consciousness but she has not totally lost consciousness. She does not necessarily sounds her underlying rate and/or rhythm. She has not had any issues of ongoing chest discomfort or difficulty breathing. She has been undergoing evaluation and care with a 30 day event monitor. Based upon preliminary review she has had episodes of underlying sinus rhythm/sinus bradycardia as well as episodes of paroxysmal atrial fibrillation with rapid ventricular response. She has also been noted have episodes of what appeared to be sinus pauses which have been greater then 5 seconds in duration. Her event monitor time is not yet complete. She presents today to establish outpatient cardiovascular care and discussed the aforementioned findings including notation that she had been told she may need a permanent pacemaker. Intake Vital Signs10/23/18 Body Mass Index (BMI) 37.7 10/23/18 Height 5 ft 2 in 10/23/18 Weight: 197 lb 10/23/18 Body Mass Index (BMI) 36.0 10/23/18 Blood Pressure 144/58 H Intake Visit Reasons: presyncope/ okay per MMM Allergies atorvastatin calcium [From Lipitor] Adverse Reaction (Verified 10/23/18 09:26) cough enalapril maleate [From Vasotec] Adverse Reaction (Verified 10/23/18 09:26) cough enalaprilat dihydrate [From Vasotec] Adverse Reaction (Verified 10/23/18 09:26) cough Medications Albuterol Inhaler [Ventolin Hfa] 2 puff INHALATION Q4H PRN PRN 08/10/15 [History Confirmed 10/23/18] Allopurinol [Zyloprim] 300 mg PO DAILY 08/10/15 [History Confirmed 10/23/18] Amlodipine [Norvasc] 10 mg PO DAILY 08/10/15 [History Confirmed 10/23/18] Aspirin [Aspirin, Baby] 81 mg PO DAILY@0800 08/10/15 [History Confirmed 10/23/18] Cholecalciferol (VIT D3) [Vitamin D3] 2,000 unit PO BID 08/10/15 [History Confirmed 10/23/18] Flecainide [Tambocor] 50 mg PO DAILY 08/10/15 [History Confirmed 10/23/18] Folic Acid 1 mg PO DAILY@0800 08/10/15 [History Confirmed 10/23/18] Insulin Glargine,Hum.rec.anlog [Lantus] 27 unit SQ QHS 08/10/15 [History Confirmed 10/23/18] Insulin Lispro [Humalog] 10 unit SQ TIDCM 08/10/15 [History Confirmed 10/23/18] Warfarin [Coumadin] 4 mg PO SUTHFRSA 05/24/18 [History Confirmed 10/23/18] Levothyroxine Sodium [Synthroid] 200 mcg PO DAILY 10/04/18 [History Confirmed 10/23/18] Pravastatin [Pravachol] 40 mg PO DAILY 10/04/18 [History Confirmed 10/23/18] Warfarin Sodium 6 mg PO MOTUWE 10/04/18 [History Confirmed 10/23/18] Furosemide [Lasix] 40 mg PO DAILY tab 10/07/18 [Rx Confirmed 10/23/18] losartan 50 mg tablet 50 mg PO BID #60 tab 10/23/18 [Rx Confirmed 10/23/18] metoprolol succinate ER 25 mg tablet,extended release 24 hr 25 mg PO DAILY #30 tab 10/23/18 [Rx Confirmed 10/23/18] [facility] Medical History Sinus pause (Acute) Essential hypertension (Chronic) Bradycardia (Acute) Pre-syncope (Acute) Diabetes mellitus (Chronic) Cerebrovascular disease (Chronic) Paroxysmal atrial fibrillation (Chronic) Gout (Chronic) Osteoporosis (Chronic) Hypothyroid (Chronic) Dyslipidemia (Chronic) HLD (hyperlipidemia) (Chronic) CKD (chronic kidney disease) stage 2, GFR 60-89 ml/min (Chronic) Ovarian cyst, left (Acute) Garcia's palsy (Chronic) Fatty liver (Chronic) HTN (hypertension) (Inactive) Surgical History History of tubal ligation (Resolved) Family History Mother CVA (cerebral vascular accident) Hypertension Father Heart disease Social History Smoking Status: Never smoker alcohol intake: never substance use type: does not use ROS Const Const: Positive for fatigue; negative for weakness, weight gain, weight loss, frequent falls or excessive sweating Eyes Eyes: Negative for change in vision, blurry vision or transient loss of vision ENT ENT: Negative for dizziness or balance problems Cardio Chest Pain: No Palpitations: Yes (occasional) feels like its: irregular (flutter), fast Edema: Bilateral (+1 LE) Muscle aches with walking: None Resp Respiratory: Positive for SOB with activity (climbing stairs, ambulating long distances) and Cough (dry); negative for SOB at rest GI GI: Negative vomiting or vomiting blood/hematemesis : Negative for hematuria Musc Musc: Negative for balance problems, muscle aches/ myalgia, muscle weakness or joint pain Skin Skin: Negative non-healing lesions or rash Neuro Neuro: Positive for near syncope (Yesterday, my head feels weird,put my head down till passes) and syncope (couple times; x2 while sitting and standing ); negative for weakness, blurry vision, dizziness, lightheadedness, frequent falls or orthostatic symptoms Riley Hematologic/Lymphatic: Negative for easy bleeding Endo Endo: Positive for fatigue; negative for excessive sweating Psych Psych: Negative for anxiety or depression Allergy Allergy/Immunology: Negative for hives, Negative for rash Cardiology Exam Const Appearance: cooperative, healthy appearing, comfortable, well developed and well groomed Nutritional Appearance: overweight Orientation: alert, awake and oriented x3 Head Head: normal to inspection, normocephalic and atraumatic Ears: hearing grossly normal bilaterally Nose: external nose normal Face and Sinus: face symmetric Mouth: oral mucosae normal Teeth and gingiva: fair dentition Eyes Eyelids: eyelids normal Conjunctivae: conjunctivae normal Pupils: PERRL EOM: EOM intact bilaterally Neck Neck: normal visual inspection and full ROM Carotids: normal carotid upstroke Chest Chest inspection: normal inspection of the chest and symmetric chest movement Auscultation: Bilateral: Clear to Auscultation Cardio Palpation: normal PMI Rate: regular rate Rhythm: regular rhythm Heart sounds: S1 normal and S2 normal Murmur: Grade 2/6, harsh, mid systolic, LLSB and LVOT GI GI: normal to inspection, bowel sounds present and soft Neuro General: alert, oriented x3 and no focal motor deficits Skin Skin: no rashes or lesions noted Extremities Pulses: Normal: Right Radial Pulse, Left Radial Pulse Lower Extremity Edema: +1: Bilateral Psych Psychological: normal affect Assessment AND Plan 1. Pre-syncope R55 Plan At the present time she still continues with symptoms that are compatible with near syncope. These appear to correlate with her episodes of bradyed dysrhythmias and or sinus pauses. At the present time she will be asked to decrease her beta fabio once again to metoprolol XL 25 mg a day. She will continue her other medications. However based upon her symptoms and her findings and noting that she still needs rate limiting therapy, antiarrhythmic therapy, etc. for her atrial fibrillation which she can have rapid ventricular response with that she should be considered for permanent pacemaker placement. 2. Sinus pause I45.5 Plan Again she has had sinus pauses documented greater than 5 seconds in duration. She appears to correlate this with her symptoms. Her medications will be adjusted as noted above. She will be recommended for permanent pacemaker placement. Orders Orders: 3. Paroxysmal atrial fibrillation I48.0 on coumadin Plan She has a history of paroxysmal atrial fibrillation. She has been on rate control therapy, anti arrhythmic therapy, and anticoagulant therapy. Her medicines will be adjusted as noted above. She should be considered for permanent pacemaker placement to support the use of her medications. Orders Orders: 4. Hyperlipidemia E78.5 Plan She will continue risk factor evaluation care is deemed appropriate. 5. Essential hypertension I10 Plan Her blood pressures can be followed. She will continue medical adjustment as needed taken into consideration her other concerns. Orders Orders: 6. 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 She is transferring her anticoagulant therapy monitoring to the [facility]. Orders Orders: Dose Management Start Date: 10/23/18 14:50 Duration: Warfarin Therapy Reasons: Paroxysmal atrial fibrillation Lab Test Data Target INR range is: 2.0 - 3.0 INR Recheck 2.2 10/23/18 11/13/18 Daily Dosing Information Daily Dosing for Warfarin entered on: 10/23/18Sunday 4 mg 6 mg 4 mg 6 mg 4 mg 4 mg 4 mg Daily Dosing Instructions Starting on Sunday, October 23, 2018, take your medications as shown in the table below: Medication Sunday warfarin 4 mg tablet 0 1.5 Tablets 0 1.5 Tablets 0 0 0 Plan Detail Other Orders Orders: Other Medications Changed: Refilled: Additional Comments The above was discussed with the patient and her son. They were agreeable to this approach. The patient will be recommended for permanent pacemaker. It is unclear as to whether or not she should receive a dual chamber pacemaker at this time versus potentially being a candidate for a wireless pacemaker with her history of paroxysmal atrial fibrillation versus chronic persistent or permanent atrial fibrillation, etc. Thank you for allowing me to participate in the care of your patient. Please don't hesitate to call if any issues arise. This note was generated using a voice recognition system and there may be incorrect words, spelling or punctuation that were not noted when reviewing the office note prior to saving. Follow Up 6 Weeks (PFM) Coding Level of Care Code Off vis,est,level 5 Diagnoses Pre-syncope R55 Sinus pause I45.5 Paroxysmal atrial fibrillation I48.0 Hyperlipidemia E78.5 Essential hypertension I10 superintendent container terminal current use of anticoagulant Z79.01 Coding Level of Care Code Off vis,est,level 5 Diagnoses Pre-syncope R55 Sinus pause I45.5 Paroxysmal atrial fibrillation I48.0 Hyperlipidemia E78.5 Essential hypertension I10 superintendent container terminal current use of anticoagulant Z79.01 Supplemental Info Supplemental Information Labs LDL Cholesterol 68 mg/dL (0-130) 10/05/18 HDL Cholesterol 35 mg/dL (40-) L 10/05/18 Triglycerides 113 mg/dL (-199) 10/05/18 VLDL Cholesterol 23 mg/dL (5-40) 10/05/18 Diagnostics Electrocardiogram 10/23/18 Echocardiogram 10/04/18 Stress Echocardiogram 10/05/18 Chest X-Ray 10/04/18 10/23/18 7499 <Electronically signed by Adelfo Thompson MD> Date Adelfo Thompson MD Cosigner Signature: Date (if applicable) CC: Marcelino Kerr, DO CBC-COMPLETE BLOOD CNT Collected: 10/23/2018 Status: F Source: [place] NO [place] 11:05 [place] [facility] [place] TYPE CODE TESTS RESULT OUT OF RANGE REFERENCE UNITS LAB L100.1000 4.4-11.0 K/mm3 Normal WBC 9.6 LAB L100.1200 4.2-5.4 M/mm3 Normal RBC 4.52 LAB L100.1300 12.0-15.0 g/dl Normal HGB 13.5 LAB L100.1400 37-47 % Normal HCT 42.1 LAB L100.1500 81-99 fL Normal MCV 93.1 LAB L100.1600 27.0-32.0 pg Normal MCH 29.9 LAB L100.1700 32-36 g/gl Normal MCHC 32.1 LAB L100.1810 11.6-14.6 % Normal RDW CV 14.0 LAB L100.1820 35.1-43.9 fl High RDW SD 46.0 LAB L100.1900 150-450 K/mm3 Normal PLT 254 LAB L100.2000 6.2-12.0 fl High MPV 12.5 Performed By: #### L100.0500 #### [facility] [address] [place], [place], [address] PROTHROMBIN TIME W/INR Collected: 10/23/2018 Status: F Source: [place] 11:05 AM [facility] [place] Order Comment: Comments: STANDING ORDER Comments: STANDING ORDER TYPE CODE TESTS RESULT OUT OF RANGE REFERENCE UNITS LAB L300.4150 11.7-14.9 SECONDS High PROTIME 24.2 LAB L300.4200 Normal INR 2.2 Performed By: #### L300.3900 #### [facility] [address] [place], [address] BASIC METABOLIC Collected: 10/23/2018 Status: F Source: [place] PROFILE ([facility]) 11:05 AM [facility] [place] TYPE CODE TESTS RESULT OUT OF RANGE REFERENCE UNITS LAB L501.0100 74-106 mg/dL High GLU 120 Result Comment: Fasting Glucose result from 100 to 125 mg/dL suggests IMPAIRED HOMEOSTASIS per A.D.A. criteria. Please note revised GLUCOSE reference range effective 2017. LAB L501.1000 7-18 mg/dL High BUN 30 LAB L501.1100 0.55-1.02 mg/dL High CREAT,SERUM 1.31 Result Comment: The validity of the calculated GFR AND GFRAA in patients over 70 years has not been determined. Clinical correlation is essential. LAB L501.1110 >60 mL/min Low EST GFR 42 Result Comment: Non- GFR Calc LAB L501.1115 >60 mL/min Low EST GFR - AA 50 Result Comment: GFR Calc LAB L501.1300 10-20 RATIO High BUN/CRE 22.9 LAB L501.2200 8.5-10.1 mg/dL CA Normal 9.5 LAB L501.5300 136-145 mmol/L NA Normal 143 LAB L501.5600 3.5-5.1 mmol/L K Normal 4.8 LAB L501.5900 98-107 mmol/L High CL 109 LAB L501.6100 21.0-32.0 mmol/L Normal CO2 24.0 LAB L501.6200 5-15 Normal GAP 10 Performed By: #### L500.2500, L501.9310, L501.9520 #### [facility] [address] [place], [address] T4 TOTAL, THYROXIN Collected: 10/23/2018 Status: F Source: [place] 11:05 AM [facility] [place] TYPE CODE TESTS RESULT OUT OF RANGE REFERENCE UNITS LAB L501.9310 4.8-13.9 ug/dL T4 Normal THYROXIN 13.0 Performed By: #### L500.2500, L501.9310, L501.9520 #### [facility] [address] [place], [address] THYROID STIM HORMONE Collected: 10/23/2018 Status: F Source: [place] ([facility]) 11:05 AM [facility] [place] TYPE CODE TESTS RESULT OUT OF RANGE REFERENCE UNITS LAB L501.9520 0.358-3.74 uIU/mL Low TSH 0.25 Performed By: #### L500.2500, L501.9310, L501.9520 #### [facility] [address] [place], [address] 12 LEAD EKG PERFORMED Observed: 10/23/2018 Status: F Source: [place] BY [facility] 9:22 AM [facility] [place] [facility] [address] [place] [address] 12 Lead EKG performed by [facility] 10/23/1821 MR#: [id number] Acct: [id number] Name: REY GUY Rep #: [id number] : 1940 78 From: Adelfo Thompson MD Attending Dr: Adelfo Thompson MD Status: DEP AMB Ordering Dr: Adelfo Thompson MD Date: 10/23/18 Location: [facility] Sex: F C Admitted: BMS/12 Lead EKG performed by [facility] ECG Report Interpretation Sinus Rhythm Leftward axisPoor R wave progressionInferior SD, age undetermined, cannot be excludedAbnormalElectronically signed on 10/23/2018 at 18:38 by Adelfo Thompson Software Version [id number] 10/23/18 1841 Date Adelfo Thompson MD CC: Marcelino Kerr DO Date Dictated: 10/23/18920 Date Transcribed: 10/23/18920 Senior Formulation Scientist: PM Signed 12 LEAD ELECTROCARDIOGRAM Observed: 10/10/2018 Status: F Source: [place] 10:58 AM [facility] [place] [facility] [address] [place] [id number] 12 Lead EKG 10/05/18 0552 MR#: [id number] Acct: [id number] Name: REY GUY Rep #: [id number] : 1940 78 From: Adelfo Thompson MD Attending Dr: Phong Gallegos MD Status: DIS IN Ordering Dr: Kayla Bowden Date: 10/05/18 Location: [facility] Sex: F C Admitted: 10/04/18 Test Reason : AM EKG Blood Pressure : / mmHG Vent. Rate : 090 BPM Atrial Rate : 094 BPM P-R Int : 000 ms QRS Dur : 100 ms QT Int : 400 ms P-R-T Axes : 000 016 055 degrees QTc Int : 489 ms Atrial fibrillation Abnormal ECG Confirmed by ADELFO THOMPSON MD ([id number]), art editor PHILL VAN ([id number]) on 10/10/2018 10:57:30 AM Referred By: DR BOWDEN Confirmed By:ADELFO THOMPSON MD 10/10/18 1057 Date Adelfo Thompson MD CC: Kayla Bowden; Marcelino Kerr DO; Phong Gallegos MD Signed PROGRESS Observed: 10/09/2018 Status: COMPLETED Source: [place] 11:09 AM [facility] [place] REPOSITORY O ID: [id number] Author: Shantelle Gonzalez ([facility]) Arsh Service: (none) Author Type: Nurse Practitioner Type: Progress Notes Filed: 10/09/2018 11:59 AM Note Text: HPI/CC: Rey Guy is a 78 year old female who presents to the office today for hosp/ER follow-up for CHF on 10/02 was discharged home for ER but continued to have symptoms and was admitted to [facility] on 10/04/2018-10/07/2018. Prior to DC her BB was decreased, stopped spironolactone and decreased lasix to daily. Added Cozaar and weaning from clonidine. Overall patient with improved symptoms, decreased SOB and decreased edema. BP at home 128-161/68-73 with HR in the 50s. Currently wearing a 30 day event monitor. Last INR was 10/07/2018 at 2.4. Continues current regimen. Will be following with Franky for cardiology. Has appt with neurology this month. Reviewed ER and hospital documentation Son with patient during encounter REVIEW OF SYSTEMS as above HISTORIES: 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 Ortez Air Surveillance Operator [facility] - Diverticulosis of colon (without mention of hemorrhage) - Endometrial polyp 08/2013 - Gout, unspecified - Hyperlipidemia - Hypertension - Internal hemorrhoids without mention of complication - Iron deficiency anemia, unspecified - Obesity, unspecified - AJIT (obstructive sleep apnea) non-compliant with CPAP - Other chronic nonalcoholic liver disease - Stasis dermatitis - Type II or unspecified type diabetes mellitus without mention of complication, not stated as uncontrolled - Vitamin D deficiency PAST SURGICAL HISTORY Procedure Laterality Date - COLONOSCOP W/ OR W/O [facility] SPEC 08/21/05 Colonoscopy - HYSTEROSCOPY 08/05/13 removal polyps - LIGATE FALLOPIAN TUBE Tubal ligation - LIVER BIOPSY, NEEDLE 08/05/01 - REM LESION TRUNK,ARM, LEG <0.5 CM 04/06/07 Exc. finesse cyst x 2 back - REMV 2ND CATARACT,CORN-SCLER SECTN Cataract removal - REMV CATARACT EXTRACAP,INSERT LENS Cataract Removal FAMILY HISTORY Problem Relation Age of Onset - other (CIRRHOSIS) Mother NON-ETOH - Coronary Artery Disease Father SD - Heart Brother - other (kidney) Brother rec'd kidney - other (varicous veins) Sister resolved - other (varicous veins) Sister blood clots, resolved - other (kidney) Sister kidney stones - other (liver) Sister fatty liver - Cancer Brother leukemia - Cancer Brother pancreatic - Cancer Son d. lymphoma Social History Marital status: Spouse name: Jey Years of education: Number of children: 8 Occupational History Occupation Employer Comment RETIRED [employer] Social History Main Topics Smoking status: Never Smoker Smokeless tobacco: Never Used Alcohol use: No Drug use: No Social History Narrative , 8 sons (7 sons alive, 1 of Hodgkins lymphoma) Current Outpatient Prescriptions on File Prior to Visit: warfarin (COUMADIN) 4 mg tablet take 1 and 1/2 tablets by mouth once daily (OR DIRECTED) levothyroxine (SYNTHROID) 200 mcg tablet take 1 tablet by mouth once daily metoprolol succinate ER (TOPROL XL) 100 mg Tb24 Take 1 tablet by mouth once daily. LANTUS SOLOSTAR U-100 INSULIN 100 unit/mL (3 mL) inpn INJECT 27 UNITS SUBCUTANEOUSLY ONCE DAILY AT BEDTIME pravastatin (PRAVACHOL) 40 mg tablet take 1 tablet by mouth once daily cloNIDine TTS (CATAPRES-TTS) 0.3 mg/24 hr apply 1 patch every week as directed allopurinol (ZYLOPRIM) 300 mg tablet take 1 tablet by mouth once daily amLODIPine (NORVASC) 10 mg tablet take 1 tablet by mouth once daily BD INSULIN PEN NEEDLE UF 31 gauge x 02/13 ndle USE WITH INSULIN four times a day insulin lispro (HUMALOG KWIKPEN INSULIN) 100 unit/mL inpn INJECT 10 UNITS SUBCUTANEOUSLY WITH BREAKFAST, 10 UNITS WITH LUNCH AND 10 UNITS WITH DINNER benzonatate (TESSALON PERLE) 100 mg capsule Take 1 capsule by mouth three times daily as needed. albuterol HFA (PROVENTIL HFA, VENTOLIN HFA) 90 mcg/actuation inhaler Inhale 2 Puffs as instructed every 4 hours as needed for Wheezing/Shortness of Breath. BD INSULIN PEN NEEDLE UF 31 gauge x /16 ndle USE WITH INSULIN four times a day flecainide (TAMBOCOR) 50 mg tablet take 1 tablet by mouth once daily spironolactone (ALDACTONE) 25 mg tablet take 1/2 tablet by mouth once daily liraglutide (VICTOZA 2-PHYLICIA) 0.6 mg/0.1 mL (18 mg/3 mL) pnij Inject 0.6 mg daily via pen Indications: TYPE 2 DIABETES MELLITUS blood sugar diagnostic (eDiets.com ULTRA TEST) test strip check blood sugars 4 times daily warfarin (COUMADIN) 5 mg tablet HOLD Insulin Lispro, Human, (HUMALOG KWIKPEN) 100 unit/mL inpn use 5 units with breakfast, 7 units with lunch and 10 units with supper furosemide (LASIX) 40 mg tablet Take 1 tablet by mouth twice daily. cholecalciferol(VITAMIN D 1,000 UNIT TAB) Takes 2 daily CENTRUM 27 MG-0.4 MG TAB Take one(1) tablet daily. ASPIRIN 81 MG TAB Take one (1) tablet daily . FOLIC ACID 1MG TABLET Take one (1) tablet daily. No current facility-administered medications on file prior to visit. ALLERGIES Allergen Reactions - Herbal Drugs - Vasotec [Enalapril * coughing - Zocor [Simvastatin] increase of liver enzymes PHYSICAL EXAMINATION: BP 138/80 (BP Site: Left Arm, BP Position: Sitting, BP Cuff Size: Large Adult) Pulse 60 Resp 16 Wt 91.2 kg (201 lb) BMI 36.76 kg/m? General appearance: Well appearing, alert, in no acute distress, well-hydrated, well nourished. and Obese Skin: Skin color, texture, turgor normal, no suspicious rashes or lesions Lungs: Lungs clear to auscultation. No wheezing, rhonchi, rales Heart: RRR without murmur, gallop, or rubs. No ectopy Edema: bilateral LE with 1+ non-pitting edema ASSESSMENT/PLAN: 1. Congestive heart failure, unspecified HF chronicity, unspecified heart failure type (HCC) - ICD9: 428.0, ICD10: I50.9 (primary diagnosis) - METOPROLOL SUCCINATE ER 50 MG TABLET,EXTENDED RELEASE 24 HR - CLONIDINE 0.3 MG/24 HR WEEKLY TRANSDERMAL PATCH - LIPID PANEL BASIC - COMP METABOLIC PANEL - follow up with cardiology and neurology - discussed when to go to ER - patient provided dietary handouts on low sodium and DM diet. 2. Type 2 diabetes mellitus with neurological manifestations, uncontrolled (HCC) - ICD9: 250.62, ICD10: E11.49, E11.65 - HGB A1C 3. Atrial fibrillation, unspecified type (HCC) - ICD9: 427.31, ICD10: I48.91 - continue to monitor INR- recheck in 2 weeks - as above Shantelle Cifuentes APRN.CNP CNOV Observed: 10/09/2018 Status: COMPLETED Source: [place] 11:00 AM [facility] REPOSITORY Office Visit (FAMPWS) ORIENTAL ORTHODOX,REY Danii ([id number]) 1940 F NFR Date Time Provider Department 10/09/18 11:00 AM SHANTELLE CIFUENTES) FAMPWS During your visit today, we recorded the following information about you: Pulse Respiration Blood pressure Weight 60/minute 16/minute 138/80 91.2 kg Shantelle Cifuentes APRN.CNP 10/09/2018 11:59 AM Signed HPI/CC: Reykathi Guy is a 78 year old female who presents to the office today for hosp/ER follow-up for CHF on 10/02 was discharged home for ER but continued to have symptoms and was admitted to [facility] on 10/04/2018-10/07/2018. Prior to DC her BB was decreased, stopped spironolactone and decreased lasix to daily. Added Cozaar and weaning from clonidine. Overall patient with improved symptoms, decreased SOB and decreased edema. BP at home 128-161/68-73 with HR in the 50s. Currently wearing a 30 day event monitor. Last INR was 10/07/2018 at 2.4. Continues current regimen. Will be following with Franky for cardiology. Has appt with neurology this month. Reviewed ER and hospital documentation Son with patient during encounter REVIEW OF SYSTEMS as above HISTORIES: PAST MEDICAL HISTORY Diagnosis Date - Atrial fibrillation Dr. Fields Ror Engineer - Garcia's palsy Residual left face weakness - Carotid stenosis 01/2015 carotid [facility] 01/2015 - CKD (chronic kidney disease), stage III (HCC) Dr. Ortez Air Surveillance Operator [facility] - Diverticulosis of colon (without mention of hemorrhage) - Endometrial polyp 08/2013 - Gout, unspecified - Hyperlipidemia - Hypertension - Internal hemorrhoids without mention of complication - Iron deficiency anemia, unspecified - Obesity, unspecified - AJIT (obstructive sleep apnea) non-compliant with CPAP - Other chronic nonalcoholic liver disease - Stasis dermatitis - Type II or unspecified type diabetes mellitus without mention of complication, not stated as uncontrolled - Vitamin D deficiency PAST SURGICAL HISTORY Procedure Laterality Date - COLONOSCOP W/ [place] W/O [facility] SPEC 08/21/05 Colonoscopy - HYSTEROSCOPY 08/05/13 removal polyps - LIGATE FALLOPIAN TUBE Tubal ligation - LIVER BIOPSY, NEEDLE 08/05/01 - REM LESION TRUNK,ARM, LEG <0.5 CM 04/06/07 Exc. finesse cyst x 2 back - REMV 2ND CATARACT,CORN-SCLER SECTN Cataract removal - REMV CATARACT EXTRACAP,INSERT LENS Cataract Removal FAMILY HISTORY Problem Relation Age of Onset - other (CIRRHOSIS) Mother NON-ETOH - Coronary Artery Disease Father SD - Heart Brother - other (kidney) Brother rec'd kidney - other (varicous veins) Sister resolved - other (varicous veins) Sister blood clots, resolved - other (kidney) Sister kidney stones - other (liver) Sister fatty liver - Cancer Brother leukemia - Cancer Brother pancreatic - Cancer Son d. lymphoma Social History Marital status: Spouse name: Jey Years of education: Number of children: 8 Occupational History Occupation Employer Comment RETIRED [employer] Social History Main Topics Smoking status: Never Smoker Smokeless tobacco: Never Used Alcohol use: No Drug use: No Social History Narrative , 8 sons (7 sons alive, 1 of Hodgkins lymphoma) Current Outpatient Prescriptions on File Prior to Visit: warfarin (COUMADIN) 4 mg tablet take 1 and 1/2 tablets by mouth once daily (OR DIRECTED) levothyroxine (SYNTHROID) 200 mcg tablet take 1 tablet by mouth once daily metoprolol succinate ER (TOPROL XL) 100 mg Tb24 Take 1 tablet by mouth once daily. LANTUS SOLOSTAR U-100 INSULIN 100 unit/mL (3 mL) inpn INJECT 27 UNITS SUBCUTANEOUSLY ONCE DAILY AT BEDTIME pravastatin (PRAVACHOL) 40 mg tablet take 1 tablet by mouth once daily cloNIDine TTS (CATAPRES-TTS) 0.3 mg/24 hr apply 1 patch every week as directed allopurinol (ZYLOPRIM) 300 mg tablet take 1 tablet by mouth once daily amLODIPine (NORVASC) 10 mg tablet take 1 tablet by mouth once daily BD INSULIN PEN NEEDLE UF 31 gauge x 5/16 ndle USE WITH INSULIN four times a day insulin lispro (HUMALOG KWIKPEN INSULIN) 100 unit/mL inpn INJECT 10 UNITS SUBCUTANEOUSLY WITH BREAKFAST, 10 UNITS WITH LUNCH AND 10 UNITS WITH DINNER benzonatate (TESSALON PERLE) 100 mg capsule Take 1 capsule by mouth three times daily as needed. albuterol HFA (PROVENTIL HFA, VENTOLIN HFA) 90 mcg/actuation inhaler Inhale 2 Puffs as instructed every 4 hours as needed for Wheezing/Shortness of Breath. BD INSULIN PEN NEEDLE UF 31 gauge x 5/16 ndle USE WITH INSULIN four times a day flecainide (TAMBOCOR) 50 mg tablet take 1 tablet by mouth once daily spironolactone (ALDACTONE) 25 mg tablet take 1/2 tablet by mouth once daily liraglutide (VICTOZA 2-PHYLICIA) 0.6 mg/0.1 mL (18 mg/3 mL) pnij Inject 0.6 mg daily via pen Indications: TYPE 2 DIABETES MELLITUS blood sugar diagnostic (eDiets.com ULTRA TEST) test strip check blood sugars 4 times daily warfarin (COUMADIN) 5 mg tablet HOLD Insulin Lispro, Human, (HUMALOG KWIKPEN) 100 unit/mL inpn use 5 units with breakfast, 7 units with lunch and 10 units with supper furosemide (LASIX) 40 mg tablet Take 1 tablet by mouth twice daily. cholecalciferol(VITAMIN D 1,000 UNIT TAB) Takes 2 daily CENTRUM 27 MG-0.4 MG TAB Take one(1) tablet daily. ASPIRIN 81 MG TAB Take one (1) tablet daily . FOLIC ACID 1MG TABLET Take one (1) tablet daily. No current facility-administered medications on file prior to visit. ALLERGIES Allergen Reactions - Herbal Drugs - Vasotec [Enalapril * coughing - Zocor [Simvastatin] increase of liver enzymes PHYSICAL EXAMINATION: BP 138/80 (BP Site: Left Arm, BP Position: Sitting, BP Cuff Size: Large Adult) Pulse 60 Resp 16 Wt 91.2 kg (201 lb) BMI 36.76 kg/m? General appearance: Well appearing, alert, in no acute distress, well-hydrated, well nourished. and Obese Skin: Skin color, texture, turgor normal, no suspicious rashes or lesions Lungs: Lungs clear to auscultation. No wheezing, rhonchi, rales Heart: RRR without murmur, gallop, or rubs. No ectopy Edema: bilateral LE with 1+ non-pitting edema ASSESSMENT/PLAN: 1. Congestive heart failure, unspecified HF chronicity, unspecified heart failure type (HCC) - ICD9: 428.0, ICD10: I50.9 (primary diagnosis) - METOPROLOL SUCCINATE ER 50 MG TABLET,EXTENDED RELEASE 24 HR - CLONIDINE 0.3 MG/24 HR WEEKLY TRANSDERMAL PATCH - LIPID PANEL BASIC - COMP METABOLIC PANEL - follow up with cardiology and neurology - discussed when to go to ER - patient provided dietary handouts on low sodium and DM diet. 2. Type 2 diabetes mellitus with neurological manifestations, uncontrolled (HCC) - ICD9: 250.62, ICD10: E11.49, E11.65 - HGB A1C 3. Atrial fibrillation, unspecified type (HCC) - ICD9: 427.31, ICD10: I48.91 - continue to monitor INR- recheck in 2 weeks - as above Shantelle Cifuentes APRN.FEATHER TRIMMER Referring Provider: SELF [[id number]] Allergies As of Date: 10/09/2018 Noted Allergy Reaction HERBAL DRUGS 08/31/2004 VASOTEC (ENALAPRIL MALEATE) 07/26/2005 Comments: coughing ZOCOR (SIMVASTATIN) 08/31/2004 Comments: increase of liver enzymes Date Reviewed: 10/09/2018 Reviewed by: Enma Carpio LPN - Fully Assessed Reason for Visit: ED Follow-up [821] Cmt: CHF Primary Visit Diagnosis:Congestive heart failure, unspecified HF chronicity, unspecified heart failure type (HCC) [I50.9] Other Visit Diagnoses:Type 2 diabetes mellitus with neurological manifestations, uncontrolled (HCC) [E11.49, E11.65] Atrial fibrillation, unspecified type (HCC) [I48.91] Order(s):metoprolol succinate ER (TOPROL XL) 50 mg 24 hr tabletTake 1 tablet by mouth once daily.Disp: 90 tabletRfl: 0 cloNIDine TTS (CATAPRES-TTS) 0.3 mg/24 hrApply 1 Patch as directed once each week. As Directed- weaning off- per cardiologyDisp: 4 PatchRfl: 1 LIPID PANEL BASIC [SQLIPB] Order #: [id number] FUTURE COMP METABOLIC PANEL [SQCMP] Order #: [id number] FUTURE HGB A1C [CNDJT2V] Order #: [id number] FUTURE Prescriptions as of 10/09/2018 Sig: LOSARTAN 50 MG TABLET Take 50 mg by mouth twice kit* METOPROLOL SUCCINATE ER 50 MG* Take 1 tablet by mouth once d* WARFARIN 4 MG TABLET take 1 and 1/2 tablets by jaylene* LEVOTHYROXINE 200 MCG TABLET take 1 tablet by mouth once d* LANTUS SOLOSTAR U-100 INSULIN* INJECT 27 UNITS SUBCUTANEOUSL* PRAVASTATIN 40 MG TABLET take 1 tablet by mouth once d* ALLOPURINOL 300 MG TABLET take 1 tablet by mouth once d* AMLODIPINE 10 MG TABLET take 1 tablet by mouth once d* INSULIN LISPRO (U-100) 100 UN* INJECT 10 UNITS SUBCUTANEOUSL* ALBUTEROL SULFATE HFA 90 MCG/* Inhale 2 Puffs as instructed * FLECAINIDE 50 MG TABLET take 1 tablet by mouth once d* INSULIN LISPRO (U-100) 100 UN* use 5 units with breakfast, 7* FUROSEMIDE 40 MG TABLET Take 1 tablet by mouth twice * VITAMIN D3 1,000 UNIT TABLET Takes 2 daily ASPIRIN 81 MG TABLET Take one (1) tablet daily . FOLIC ACID 1 MG TABLET Take one (1) tablet daily. CLONIDINE 0.3 MG/24 HR WEEKLY* Apply 1 Patch as directed onc* BD ULTRA-FINE SHORT PEN NEEDL* USE WITH INSULIN four times a* BENZONATATE 100 MG CAPSULE Take 1 capsule by mouth three* BD ULTRA-FINE SHORT PEN NEEDL* USE WITH INSULIN four times a* LIRAGLUTIDE 0.6 MG/0.1 ML (18* Inject 0.6 mg daily via pen * BLOOD SUGAR DIAGNOSTIC STRIPS check blood sugars 4 times d* WARFARIN 5 MG TABLET HOLD CENTRUM 0.4 MG-162 MG-18 MG T* Take one(1) tablet daily. Medication notes this encounter METOPROLOL SUCCINATE ER 100 MG TABLET,EXTENDED RELEASE 24 HR >> Enma Carpio LPN 10/09/2018 11:08 AM >> ENMA CARPIO LPN SunOct 09, 2018 11:08 AM Only taking 50 mg. CLONIDINE 0.3 MG/24 HR WEEKLY TRANSDERMAL PATCH >> Enma Carpio LPN 10/09/2018 11:09 AM >> ENMA CARPIO LPN SunOct 09, 2018 11:09 AM Reduced dose SPIRONOLACTONE 25 MG TABLET >> Enma Carpio LPN 10/09/2018 11:08 AM >> ENMA CARPIO LPN SunOct 09, 2018 11:08 AM Not taking. Problem List As Of Date 10/09/2018 Noted Resolved IRON DEFIC ANEMIA NOS [D50.9] 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 Fatty liver [K76.0] INVALID FOR* CKD (chronic kidney disease) stage 3, GFR 30-59*INVALID FOR* Edema [R60.9] INVALID FOR* Stasis dermatitis [I87.2] INVALID FOR* Carotid stenosis [I65.29] More... CKD (chronic kidney disease), stage III [N18.3] 01/09/2018 More... Prescriptions ordered this encounter Disp Refills Start End METOPROLOL SUCCINATE ER 50 MG TABLET* 90 t* 0 10/09/2018 Route: ORAL Sig: Take 1 tablet by mouth once daily. CLONIDINE 0.3 MG/24 HR WEEKLY TRANSD* 4 Pa* 1 10/09/2018 Class: Med Update Route: TRANSDERM. Sig: Apply 1 Patch as directed once each week. As Directed- weaning off- per cardiology Medications Discontinued During This Encounter spironolactone (ALDACTONE) 25 mg tab* 45 t* 0 05/04/2017 10/09/2018 Sig: take 1/2 tablet by mouth once daily Disc: Reason for discontinue is not on file. metoprolol succinate ER (TOPROL XL) * 90 t* 3 09/30/2018 10/09/2018 Route: ORAL Sig: Take 1 tablet by mouth once daily. Disc: Reason for discontinue is not on file. cloNIDine TTS (CATAPRES-TTS) 0.3 mg/* 4 Pa* 1 09/02/2018 10/09/2018 Sig: apply 1 patch every week as directed Disc: Reason for discontinue is not on file. Letter Text Judith Cifuentes APRN.[place], [place] [address] HOW TO CUT BACK ON SALT CONSUMPTION Here are the following guidelines to help reduce the amount of sodium in your diet Take the salt shaker off the table and omit salt from recipes and food preparation. Cook without salt or with only small amounts of added salt. Learn to enjoy the flavors of unsalted foods. Try flavoring foods with herbs, spices, and lemon juice. Read food labels carefully to determine the amounts of sodium. Learn to recognize ingredients that contain sodium. Salt, soy sauce, salt brine or any ingredient with sodium (such as monosodium glutamate) or baking soda (sodium bicarbonate) as part of its name contains sodium. Rinsing canned vegetables and fish will remove much of the salt. Season or marinate meat, poultry, and fish ahead of time with onion, garlic and your favorite herbs before cooking to bring out the flavor. Some terms describing sodium content: lite, light, lightly salted, low sodium, reduced sodium, sodium free, unsalted, no salt added, without salt added, very low sodium. Use lower sodium products, when available, to replace those with higher sodium content. Use simple techniques like saving chicken broth from a chicken you cook at home rather than buying a canned, powdered or bouillon cube broth. When dining out words that signal high sodium include: smoked, barbecued, pickled, broth, soy sauce, teriyaki, creole sauce, marinated, cocktail sauce, tomato base, Parmesan, and mustard sauce. FOODS RECOMMENDED FOODS TO AVOID MILK AND DAIRY 2-3 servings each day All milk and milk products, except buttermilk Cream cheese Low sodium cheeses Yogurt MILK AND DAIRY Buttermilk Cheese ([place], Akira, Cheddar, Blue, Gouda, Fijian, Velveeta) Cheese spreads FRUIT AND VEGETABLES 5-9 servings/day Fresh or frozen vegetables No added salt or low salt canned vegetables No added salt tomato products Salt-free vegetable juices All fruit and fruit juices FRUIT AND VEGETABLES Canned vegetables Frozen vegetables with seasoning and sauces Pickle relish, sweet or sour Pickled Vegetables Pickles and others prepared in brine Sauerkraut Vegetable or tomato juices, canned or bottled Pickled Fruits BREADS AND GRAINS 6-11 servings/day Bread and rolls Dry and cooked cereals Pancakes, waffles Potatoes Salt-free potato chips Salt-free pretzels/snack chips Rice, barley, noodles, spaghetti, macaroni and other pastas Tortillas Unsalted crackers Unsalted popcorn BREADS AND GRAINS Breads and rolls with salted tops Instant hot cereals Instant Food Products (e.g., cereals, pasta mixes, potatoes, rice, etc.) Such as boxed mixes like rice, scalloped potatoes, macaroni and cheese Popcorn, Prepackaged Microwave Salted popcorn Saltines, potato chips, pretzels, snack chips, pork rinds MEATS AND MEAT SUBSTITUTES 2-3 servings or total of 6 oz daily All fresh and fresh frozen meats (poultry, fish, shellfish, beef, pork, russo) Canned unsalted tuna fish Dried peas and beans Eggs Low sodium peanut butter Unsalted nuts Unsalted soybeans and other meat substitutes MEATS AND MEAT SUBSTITUTES Cured, salted, canned or smoked meats, poultry, or fish such as corned beef, ham, richards, luncheon meats, beef jerky, bologna, pork rinds, hogmaws, ribs, chitterlings, frankfurter, sausage, chorizo, canned fish like tuna, sardines, mackerel, anchovies, caviar, salted cod, sandhu, sardines, lox, dry fish, and kippered salmon Dried Fish, Assorted (e.g., dried shrimp) Frozen pizza Frozen prepared meat entree dinners such as pot pies, macaroni and cheese Kosher meats Pickled Meats Regular peanut butter Salted nuts Soups Homemade soups, made with allowed ingredients Unsalted broth or bouillon Low sodium commercial soup Soups Broth and soups with added salt Regular canned soups Regular instant soups Regular bouillon cubes FATS AND SNACKS (use sparingly) Margarine, vegetable oils and lard Unsalted gravies Unsalted butter Mayonnaise, sour cream Salt-free salad dressings Homemade salad dressings, made without added salt Whipping cream Sugar, honey, jelly, jam, syrup, candies Popsicle?s, fruit ice, sherbet, fruit sorbet, marshmallows Homemade cookies, pies, cakes made with allowed ingredients FATS AND SNACKS Butter Commercial salad dressings Cheese-based dressings Richards fat, fatback, salt pork Salad dressing mixes Olives, green and black Prepared frozen cream pies and cheese cake Instant pudding mixes Commercially prepared baked goods (Cakes, cookies, pie) Salted nuts MISC. Allspice, Mustard (dry) Pool Extract OpenExchangeil Redmond Leaves Capello's Lao Style Seasoning Satya Seeds Chives Cider Vinegar Cinnamon Ly Powder Victoria Crystal Dill Garlic Powder Malgorzata Herbal Seasonings: Lawry's Seasoned Pepper Lawrwiley's Seasoning (no salt) Lemon Juice Mace Mrs. Aaron Nutmeg Onion Powder Paprika Parsley Parsley Patch Peppermint Extract Pimento Cassidy Juan Luis Salt free seasoning blends Savory Sodium-free Baking Powder Thyme Turmeric Vinegar Diez's all-purpose Seasonings MISC. Accent [place] All commercially prepared and convenience foods such as TV dinners, box mixes, canned entrees, Hamburger [place], meat pies, Marshallese dinners, pizza, Shake'n Bake mixes BBQ sauce Celery salt [place] sauce Garlic salt Horseradish Kitchen Bouquet Lemon pepper Marinade sauce Meat tenderizers Monosodium Glutamate (MSG) Onion salt Libertarian spreads Regular ketchup Relish Salad dressings Salt Seasoning salts Sodium Benzoate Sodium Caseinate Sodium Citrate Sodium Nitrate Sodium Phosphate Sodium Propionate Sodium Saccharin Soy sauce Steak sauce Tartar sauce Teriyaki sauce [facility] sauce Labeled no salt Products, Assorted [e.g., mandel paste and sauces, oriental dried plums and other dried seeds, vegetables and fruits (lemon AND malgorzata)] Letter Text Diabetes Mellitus: General Diet Guidelines 12/07 Higher than normal blood glucose (sugar) levels over time may cause serious health issues. What you eat and how much you eat can help you keep your blood glucose levels in goal range. The diabetic diet is a healthy diet which includes a variety of all food groups. Sugar-free or special foods for diabetes are not required. Some persons think that sugar is the main ingredient to monitor; carbohydrates are the main ingredient to monitor. Think of yourself as being on a carbohydrate budget. What are carbohydrates? The foods that have the biggest effect on your blood glucose levels are carbohydrates. Carbohydrates are digested by the body to form glucose or sugar, which the body uses for energy.Carbohydrates are found in three main food groups: starches, fruit, and dairy products. Examples of carbohydrates include breads, cereals, rice, macaroni products, starchy vegetables (potatoes, corn, peas, lentils, and beans), juice, fruit, milk, and yogurt. Other carbohydrates are sugars and sweets like cakes, pies, honey, syrups, molasses, jelly, gelatin, candy, and sweetened beverages, such as carbonated pop or lemonade. How do you keep blood glucose in target range? Step 1: TIMING. Eat within the first hour or two of waking and every 4 to 5 hours through the day. Avoid skipping meals. Try to follow the same meal schedule on weekends and weekdays. Try a schedule like this: 6:45 a.m.: Wake up 7:30 a.m.: Breakfast Noon: Lunch 3:00 p.m.: Snack 6:00 p.m.: Dinner 8:30: Snack Step 2: CONSISTENCY. Eat the same amount of food and carbohydrate in each meal and snack. Step 3: VARIETY. Eat a variety of foods daily. Your dietitian, the nutrition expert, will design a meal plan to meet your specific needs. Step 4: MODERATION. By using moderation, you can get the nutrients you need while reaching your goal of target blood glucose levels. Your dietitian can help make a plan that is right for you. And remember--DO NOT SKIP MEALS! FOODS GROUPS AND SERVING SIZES Starches Choose 4-6 servings daily. Choose whole grain, high-fiber foods when possible. 1 serving equals = ? cup of hot cereal; ? cup cold whole-grain cereal; 1 whole grain waffle or pancake (size of a CD); ? cup of mashed potato, corn, peas, or beans; 1 small baked potato; 1/3 cup rice or pasta; 1 slice of whole grain bread; 4-6 whole grain crackers; 3 cups of popcorn; 1 cup soup; ? whole grain hamburger bun, hot dog bun, or Polish muffin; ? of a small bagel or tortilla shell; and 1 tablespoon of syrup. Fruit Choose 2-3 servings daily. 1 serving equals = 1 small fruit (4 ounces); ? cup unsweetened canned fruit; 17 grapes; 2 tablespoons raisins; 1? cup watermelon cubed; 1 cup melon; and ? cup dried fruit. Milk and yogurt Choose 2-3 servings daily 1 serving equals = 1 cup of skim or 1% milk; 6 ounces low- fat yogurt; ? cup low-fat or sugar free ice cream; and 1 cup sugar-free pudding. Non-starchy vegetables Choose 3-5 servings daily. 1 serving equals = 1 cup raw vegetables or ? cup cooked vegetables: green beans, beets, broccoli, cabbage, carrots, cauliflower, celery, cucumber, lettuce and other dark green leafy greens; mushrooms; okra; onions; pea pods; peppers; tomatoes; turnips; water chestnuts; and zucchini. Meat or meat substitutes Aim for 2-3 servings daily. 3 ounces of cooked meat (the size of a deck of cards) such as lean beef, chicken without skin, fish, russo, pork loin, wild game and/or veal. 1 ounce of a meat substitute equals = 1 slice of low-fat cheese; 1 egg; 2 egg whites; ? cup egg beaters; ? cup 2% low-fat cottage cheese; and/or 1 tablespoon of peanut butter. Fat Choose 2-3 servings daily. 1 serving equals = 1 teaspoon butter, margarine, oil, or mayonnaise; 1 tablespoon salad dressing, nuts, seeds, reduced-fat mayonnaise or cream cheese; 2 tablespoons reduced fat salad dressing or sour cream. (Tip of thumb is a teaspoon; whole thumb is a tablespoon) SAMPLE MENU (approximately 1,600 calories) This sample menu is for example only. Men and Active Ladies may require a diet plan with more calories Breakfast ? cup unsweetened cereal with 1 cup low-fat milk 1 small banana OR 2 frozen whole grain waffles with 1 tablespoon syrup and 1 cup low-fat milk Lunch 1 cup low-sodium vegetable soup with 4-6 whole grain crackers 1 small orange OR [place] with turkey, lettuce, tomato, 1 tablespoon reduced fat mayonnaise on whole grain bread 1 cup cucumber slices with salsa 1 small apple Dinner 3 ounces baked pork loin 1 small baked potato with 2 tablespoons light sour cream 1 cup tossed salad with 2 tablespoons reduced fat salad dressing 1 cup cooked broccoli with spray butter 1 whole grain dinner roll with 1 teaspoon margarine 1 ? whole strawberries Water Snack ideas 3 cups unbuttered popcorn OR 1 [id number] José Luis crackers OR ? cup whole grain cereal with ? cup low-fat milk OR 1 cup light low-fat yogurt OR 1 cup raw vegetables with 2 tablespoons reduced fat salad dressing OR 17 grapes OR 1 slice of whole wheat bread with 1 tablespoon peanut butter If you do home glucose checks For non adults, general goals for glucose checks are 70-120 mg/dL (fasting or before a meal); Less than 180 mg/dL (two hours after starting a meal) 100-140 mg/dL (at bedtime) Please consult your health care provider to see if your goals for glucose are as noted above. These numbers can vary noopam-je-olveru. Other Tips 1. Seeing a registered dietitian to help you better understand your diet is highly recommended. Our office can help you with a referral if needed. 2. Avoid buying special foods, such as sugar-free products. Sugar-free does not mean carbohydrate-free. 3. Avoid (or limit) sugared drinks such as regular soda. The carbohydrate content is quite high. Since you are on a carbohydrate budget, this will throw you over budget rather quickly. Diet sodas usually contain little or no carbohydrates. 4. Limit your sweets and desserts to special times, birthdays, holidays, and special occassions. Again, these foods are high in carbohydrates and may send you over budget quickly. Your dietitian can further guide you on this topic. 5. A food diary is quite helpful to the dietitian and you can bring this along to your appointment. Encounter Status:Closed by SHANTELLE CIFUENTES CNP on 10/09/18 EMERGENCY DEPARTMENT Observed: 10/09/2018 Status: F Source: [place] SUMMARY 2:28 AM [facility] [place] [facility] Medical Records Department [address] [place] [address] Emergency Department Summary 10/02/18 1214 MR#: [id number] Acct: [id number] Name: REY GUY Rep #: [id number] : 1940 78 From: Mann Walker DO PCP: Marcelino Kerr DO Status: DEP ER ADDENDUM by Mann Walker DO on 10/09/18 at 0228 Addendum to diagnosis is acute systolic/diastolic congestive heart failure 10/09/18 0228 Date Mann Walker DO cc: Marcelino Kerr * Signed - ER Visit Summary Date of Service: 10/02/18 Chief Complaint: Shortness of breath History of Present Illness: The patient is a 78 F presents with shortness of breath that has been waxing and waning over the past 2 months. Patient states this has gradually gotten worse throughout the day today. Patient went to an urgent care and was referred here. Patient states her breathing is worse if she walks up steps. Patient states her breathing improves when she stops to rest. Patient admits to a cough but denies any sputum. Patient also admits to some postnasal drainage. Patient denies any fevers but admits to subjective chills. Patient admits to some increased swelling of her lower legs. Patient states she has a history of lymphedema. Patient also states she has been having intermittent near syncopal episodes for the past year. Patient was evaluated in the emergency department for this. Patient states she has an appointment with a neurologist in 2 weeks. Physical Examination: Vital signs showed an elevated blood pressure of 200/73. Patient is afebrile. Patient is in no acute distress. Oral mucosa was pink and moist. Neck is supple. Trachea is midline. There is no JVD noted. Heart was regular and bradycardic. Lungs show bibasilar Rales. There is good respiratory effort noted. Abdomen is soft. Bowel sounds are normal. There is no tenderness. Extremities are intact. There is 2+ edema of the lower extremities bilaterally. Cranial nerves II through XII are intact. There are no focal motor or sensory deficits noted. Skin is warm and dry. There is no jaundice noted. Test Results: EKG showed sinus bradycardia with a rate of 52. There are no acute ST or T wave changes noted. Chest x-ray shows some evidence of congestive heart failure. CBC shows a slight leukocytosis of 12.0. Creatinine was slightly elevated at 38 and 1.4 however, this is stable for the patient. INR was therapeutic at 2.7. BNP was slightly elevated at 507. Emergency Department Course and Treatment: On reevaluation the patient's oxygen saturation was 95% on room air. However, when the patient stood to ambulate upon discharge her oxygen saturation dropped to 89. Patient was ambulated with a pulse oximeter reading and upon walking her oxygen saturation dropped into the upper 80s. Patient states she really wants to go home. Patient was given a dose of Lasix here. Patient was instructed to take another dose of Lasix when she gets home. Patient was instructed to return if her breathing gets worse in any way. Patient and her understood and were agreeable with the plan. All questions were answered. Disposition: Discharged home Impression: Congestive heart failure This note was generated with [employer] dictation software. It may contain incorrect words, spelling, and punctuation that were not noted in review of the chart prior to signing ED Disposition - Plan for ED Patient: Disposition: Home or Assisted Living Chief Complaint: Shortness of Breath Diagnosis: Congestive heart failure Instructions: ED CHF General Referrals: Marcelino Moon DO [Primary Care Provider] - Additional Instructions: Continue your Lasix as prescribed. You may take your afternoon dose when you get home. What to do if you have Problems For any increased pain, shortness of breath, bleeding, nausea or vomiting, chest pain, or any unexpected problems, contact your Primary Care Provider. Call [facility] ([phone]) or report to the closest Emergency Room. Call 911 if necessary. 10/02/18 4392 <Electronically signed by Mann Walker DO> Date Mann Walker DO Cosigner Signature (If Indicated): Date CC: Marcelino Kerr DO 12 LEAD ELECTROCARDIOGRAM Observed: 10/08/2018 Status: F Source: [place] 8:48 AM [facility] [place] [facility] Cardiovascular Services [address] [place], [place] [address] [address] 12 Lead EKG 10/04/18 1353 MR#: [id number] Acct: [id number] Name: REY GYU Rep #: [id number] : 1940 78 From: Jelani Sanders MD Attending Dr: Phong Gallegos MD Status: DIS IN Ordering Dr: Rashel Freeman MD Date: 10/04/18 Location: [facility] Sex: F C Admitted: 10/04/18 Test Reason : PALPS Blood Pressure : / mmHG Vent. Rate : 090 BPM Atrial Rate : 241 BPM P-R Int : 000 ms QRS Dur : 102 ms QT Int : 384 ms P-R-T Axes : 000 015 056 degrees QTc Int : 469 ms Atrial fibrillation Abnormal ECG Confirmed by MARILYN DUTTA, JELANI ([id number]), art editor PHILL VAN ([id number]) on 10/08/2018 8:47:43 AM Referred By: SL Confirmed By:JELANI SANDERS MD 10/08/18 0847 Date Jelani Sanders MD CC: Marcelino Kerr DO; Phong Gallegos MD; Rashel Freeman MD Signed DISCHARGE SUMMARY Observed: 10/07/2018 Status: F Source: [place] 12:58 PM [facility] [place] Medical Records Department [address] [place] [id number] Discharge Summary 10/07/18 1127 MR#: [id number] Acct: [id number] Name: REY GUY Rep #: [id number] : 1940 78 From: Raine Kim FAMILY EDUCATOR-C PCP: Marcelino Kerr DO Status: ADM IN Y Location: [place] [id number] <Raine Kim - Last Filed: 10/07/18 11:37> Discharge Date and Diagnosis Date of Admission: 10/04/18 Date of Discharge: 10/07/18 - Primary Discharge Diagnosis Active and Suspected Problems 1. Recurrent syncope suspected secondary to bradycardia with cardiac pauses 2. Recurrent cardiac pauses, improved 3. Mild acute on chronic diastolic CHF 4. Chronic lymphedema 5. Paroxysmal atrial fibrillation on chronic anticoagulation with Coumadin 6. Chronic kidney disease stage II 7. Hypertension 8. Hyperlipidemia 9. History of CVA 10. Type 2 diabetes mellitus 11. Hypothyroidism 12. Osteoporosis 13. Gout - Secondary Discharge Diagnosis Chronic Problems Diabetes mellitus (Chronic) Cerebrovascular disease (Chronic) asympt small left thalamic infarct Paroxysmal atrial fibrillation (Chronic) on coumadin Gout (Chronic) Osteoporosis (Chronic) Hypothyroid (Chronic) Dyslipidemia (Chronic) HTN (hypertension) (Chronic) HLD (hyperlipidemia) (Chronic) CKD (chronic kidney disease) stage 2, GFR 60-89 ml/min (Chronic) Hospital Course and Treatment Imaging Results: Diagnostic Data Brain CT 10/04/18 14:06 IMPRESSION: Chronic involutional changes of the brain. Electronically Signed: Alvaro Martinez MD at 14:39 EST Tel [phone], Service support , Chest X-Ray 10/04/18 14:06 IMPRESSION: The CHF has cleared. Minimal residual increased markings in the right infrahilar region suggestive of atelectasis and/or scarring. Electronically Signed: Alvaro Martinez MD at 14:38 EST Tel [phone], Service support , Dr. Spencer- Cardiology Operations: None Procedures: 2-D Echocardiogram, - - Stress echo Summary of Care Provided: The patient is a 78 year old F admitted 10/04/2018 due to presyncope, shortness of breath. 1. Recurrent presyncope- suspect secondary to recurrent multiple prolonged cardiac pauses as noted on telemetry. Echo shows an EF of 75%, mild to moderate mitral valve insufficiency, mild tricuspid valve insufficiency, RVSP estimated to be 51 mmHg moderate pulmonary hypertension. Troponin negative. Patient underwent stress echo which was negative for ischemia. Flecainide placed on hold on admission, resumed per cardiology. Metoprolol reduced to [address] on admission with chronic changes. No further presyncope/sinus pauses on telemetry overnight. 30-day event monitor at discharge. Patient will follow up with Dr. Thompson going forward. Previously followed with Dr. Fields, [facility] cardiology. Patient reports her follows with Dr. Thompson and requested to follow-up with him going forward. Medication adjustments per #2. 2. Recurrent multiple prolonged cardiac pauses-Cardiology following. Reduce home metoprolol regimen to 50 mg daily. Flecainide resumed by cardiology. Clonidine patch being tapered. Patient will continue clonidine patch 0.2 mg for 1 week followed by 0.1 mg for 1 week, then discontinue. Patient has not had any further significant pauses on telemetry for the past 48 hours. Patient will be discharged on 30-day event monitor. Follow-up with Dr. Thompson in 6 weeks. 3. Mild acute on chronic diastolic CHF-chest x-ray on admission with improved CHF. Minimal residual increased markings in the right infrahilar region. Echocardiogram 2012 with EF 70%. IV Lasix discontinued. Begin Lasix 40 mg p.o. daily. Repeat echocardiogram with EF 75% as noted above. 4. Chronic lymphedema-Mahsa wraps bilateral lower extremities. 5. Paroxysmal atrial fibrillation on chronic anticoagulation with Coumadin-Coumadin on hold during admission due to supratherapeutic INR. INR 2.4 at discharge. Patient will resume prior Coumadin regimen with routine INR per PCP/cardiology. 6. Chronic kidney disease stage II- at baseline. Follows with Dr. Hendrickson. 7. Hypertension-Continue home amlodipine. Metoprolol regimen reduced to 50 mg daily. Spironolactone discontinued per cardiology recommendations. Losartan added, increased to 50 mg twice daily. 8. Hyperlipidemia-continue statin. 9. History of CVA-continue aspirin, statin. 10. Type 2 diabetes mellitus-continue home insulin regimen. 11. Hypothyroidism-continue Synthroid regimen. 12. Osteoporosis 13. Gout-continue allopurinol regimen. General: Alert, Oriented x3, Cooperative HEENT: Atraumatic, PERRLA, EOMI, Normocephalic Neck: Supple, No JVD, Negative Carotid Bruits Lungs: Clear to auscultation, Normal air movement Cardiovascular: Regular Rhythm, Normal S1, Normal S2, No murmurs, intermittent mild bradycardia Abdomen: Bowel Sounds Present, Soft, Non Tender, Non-Distended Extremities: No clubbing, No cyanosis, No edema, Capillary Refill Less than 3 Seconds Skin: No rashes, No breakdown Musculoskeletal: No Tenderness to Palpation of Joints or Extremities Neurological: Cranial nerves II-XII grossly intact, Neuro grossly intact Psych/Mental Status: Normal Affect, Appropriate Patient seen and examined prior to discharge. Physical assessment as noted above. Patient is stable for discharge with follow up recommendations as noted above. This patient was seen by MAYRA Luque under the supervision of Rosy. - Physical Exam Vital Signs Temp Pulse Resp BP Pulse Ox 97.7 F L 60 16 175/61 H 95 10/07/18 08:49 10/07/18 08:53 10/07/18 08:49 10/07/18 08:53 10/07/18 08:49 Oxygen Delivery Method Room Air Weight: 203 lb 0.732 oz Body Mass Index (BMI) 37.7 Finger Stick Blood Glucose 140 Orthostatic Vital Signs Start: 10/05/18 14:08 Freq: q24h Status: Active Protocol: Activity Type Activity Date Activity User E-Sign Co-Sign Detail Recorded Client Recorded Date Recorded By Document 10/07/18 06:06 POLLY [id number] 10/07/18 06:15 POLLY Orthostatic Vitals Standing -Blood Pressure (90/60-120/80) 148/67 H -Extremity Use Right Arm -Pulse Rate (60-100) 63 Sitting -Blood Pressure (90/60-120/80) 161/88 H Intake and Output for Last 24 Hours Intake Total 940 / 940 1300 / 1300 380 / 380 Output Total 2049 890 / 890 500 / 500 Balance -1110 / -1110 410 / 410 -120 / -120 Laboratory Tests Past 24 Hrs PT 25.9 H INR 2.4 POC Glucose POC Glucose 174 H 157 H 113 H POC Glucose 251 H Discharge Diet: Low fat/ Low Cholesterol Discharge Activity: Return to Normal Activity Call your doctor if you observe: Shortness of breath, Dizziness, Fainting spells, Chest pain Home Medications: Medications to take at Discharge Albuterol Inhaler [Ventolin Hfa] 2 puff INHALATION Q4H PRN PRN 08/10/15 Allopurinol [Zyloprim] 300 mg PO DAILY 08/10/15 Amlodipine [Norvasc] 10 mg PO DAILY 08/10/15 Aspirin [Aspirin, Baby] 81 mg PO DAILY@0800 08/10/15 Cholecalciferol (VIT D3) [Vitamin D3] 2,000 unit PO BID 08/10/15 Flecainide [Tambocor] 50 mg PO DAILY 08/10/15 Folic Acid 1 mg PO DAILY@0800 08/10/15 Insulin Glargine,Hum.rec.anlog [Lantus] 27 unit SQ QHS 08/10/15 Insulin Lispro [Humalog] 10 unit SQ TIDCM 08/10/15 Warfarin [Coumadin] 4 mg PO SUTHFRSA 05/24/18 Levothyroxine Sodium [Synthroid] 200 mcg PO DAILY 10/04/18 Pravastatin [Pravachol] 40 mg PO DAILY 10/04/18 Warfarin Sodium 6 mg PO MOTUWE 10/04/18 Clonidine Patch [Catapres-Tts1] 0.1 mg TRANSDERM. Q7D #1 patch 10/07/18 Furosemide [Lasix] 40 mg PO DAILY tablet 10/07/18 Losartan Potassium [Cozaar] 50 mg PO BID #60 tablet 10/07/18 Metoprolol(XL)Succ [Toprol Xl (Beta Fabio)] 50 mg PO DAILY #30 tablet 10/07/18 Following Prescrptions Were Given to Patient: Clonidine Patch [Catapres-Tts1] 0.1 mg TRANSDERM. Q7D #1 patch Metoprolol(XL)Succ [Toprol Xl (Beta Fabio)] 50 mg PO DAILY #30 tablet Losartan Potassium [Cozaar] 50 mg PO BID #60 tablet Other Amb Orders: 30-Day Event Recorder [[facility]] Location: None Selected Primary Care Physician: Marcelino Moon DO [Primary Care Provider] - Please follow up with your Primary Care Physician in: 1 Week Please Follow Up With: Adelfo Thompson MD When: 6 Weeks Disposition: Home Minutes spent on discharge:: 35 Patient Condition:: Stable Medical Necessity - Tobacco Use Smoking Status: Never smoker Tobacco Use: Secondhand Meaningful Use Info Meaningful Use Diagnoses (Choose all that apply): CHF - CHF MAHSA/ARB ordered at discharge?: Yes Documented LVEF (%): 70 <Phong Gallegos - Last Filed: 10/07/18 12:57> Discharge Date and Diagnosis - Secondary Discharge Diagnosis Chronic Problems Diabetes mellitus (Chronic) Cerebrovascular disease (Chronic) asympt small left thalamic infarct Paroxysmal atrial fibrillation (Chronic) on coumadin Gout (Chronic) Osteoporosis (Chronic) Hypothyroid (Chronic) Dyslipidemia (Chronic) HTN (hypertension) (Chronic) HLD (hyperlipidemia) (Chronic) CKD (chronic kidney disease) stage 2, GFR 60-89 ml/min (Chronic) Hospital Course and Treatment Summary of Care Provided: The patient is a 78 year old F [] - Physical Exam Vital Signs Temp Pulse Resp BP Pulse Ox 97.7 F L 60 16 148/64 H 94 10/07/18 11:23 10/07/18 11:23 10/07/18 11:23 10/07/18 11:23 10/07/18 11:23 Oxygen Delivery Method Room Air Weight: 203 lb 0.732 oz Body Mass Index (BMI) 37.7 Finger Stick Blood Glucose 140 Orthostatic Vital Signs Start: 10/05/18 14:08 Freq: q24h Status: Active Protocol: Activity Type Activity Date Activity User E-Sign Co-Sign Detail Recorded Client Recorded Date Recorded By Document 10/07/18 06:06 POLLY [id number] 10/07/18 06:15 POLLY Orthostatic Vitals Standing -Blood Pressure (90/60-120/80) 148/67 H -Extremity Use Right Arm -Pulse Rate (60-100) 63 Sitting -Blood Pressure (90/60-120/80) 161/88 H Intake and Output for Last 24 Hours Intake Total 940 / 940 1300 / 1300 940 / 940 Output Total 2049 / 2049 890 / 890 500 / 500 Balance -1110 / -1110 410 / 410 440 / 440 Laboratory Tests Past 24 Hrs PT 25.9 H INR 2.4 POC Glucose POC Glucose 196 H 174 H 157 H POC Glucose 113 H Code Visit Addendum: Dr. Gallegos I personally examined the patient and reviewed the chart. I agree with the above. 88-year-old female presenting with frequent near syncopal episodes over the last year and states that she has over 30-40 episodes daily over the last 2 weeks prior to admission. She has lightheadedness and dizziness and is able to sit down and they can resolve and then it comes back. She sees cardiology as an outpatient, Dr. Rogers for her paroxysmal A. fib, but does not appear to have had a Holter monitor. During her stay here she had an echocardiogram which had a normal EF but has had an increase in her right ventricular systolic pressures from 30 to. 51 mmHg. She had a normal stress echo. Cardiology was consulted and and recommended that flecainide be continued, however her Toprol XL which was at 100 mg a day should be decreased to 50 mg p.o. twice daily, and to continue Norvasc. She was also started on Cozaar daily for better blood pressure control and and was ultimately increased to twice daily dosing. We will also wean her off of her clonidine. They also recommended discontinuation of her Aldactone and putting her on Lasix 40 mg p.o. daily. She will need close outpatient follow-up. She will have a Holter monitor on discharge to see if any of these episodes can be captured. Inpatient E AND M: [id number] Disch Hosp 10/07/18 1138 <Electronically signed by Raine NUNEZ> Date Raine GOTTIC 10/07/18 1258<Electronically signed by Phong Gallegos MD> Cosigner Signature (if applicable): Date Phong Gallegos MD CC: MAYRA Kim; Marcelino Kerr DO; Phong Gallegos MD Signed BEDSIDE GLUCOSE Collected: 10/07/2018 Status: F Source: [place] 11[place] [facility] [place] CODE TESTS RESULT OUT OF REFERENCE UNITS RANGE LAB L501.080 70-110 mg/dL High BEDSIDE GLU 196 Result Comment: Insulin Given MANAGEMENT OF PATIENT CARE PER NURSING PROTOCOL Performed By: #### L501.080 #### [facility] Point of Care [address] [place] [address] DISCHARGE INSTRUCTION Observed: 10/07/2018 Status: F Source: [place] 11[place] [facility] [place] [facility] Medical Records Department [address] [place] [address] Instructions for Home/Discharge Instructions 10/07/18 1122 MR#: [id number] Acct: [id number] Name: REY GUY Rep #: [id number] : 1940 78 From: Raine GOTTIC PCP: Marcelino Kerr DO Status: ADM IN - Discharge Diagnoses Current Active Problems: Current Active and Chronic Problems Bradycardia (Acute) Pre-syncope (Acute) You will use the following diet at home:: Cardiac Discharge Activity: Return to Normal Activity Call your doctor if you observe: Shortness of breath, Dizziness, Fainting spells, Chest pain Allergies/Adverse Reactions: Allergies atorvastatin calcium [From Lipitor] Adverse Reaction (Verified 10/04/18 15:45) cough enalapril maleate [From Vasotec] Adverse Reaction (Verified 10/04/18 15:45) cough enalaprilat dihydrate [From Vasotec] Adverse Reaction (Verified 10/04/18 15:45) cough Medications to take at Discharge Albuterol Inhaler [Ventolin Hfa] 2 puff INHALATION Q4H PRN PRN 08/10/15 Allopurinol [Zyloprim] 300 mg PO DAILY 08/10/15 Amlodipine [Norvasc] 10 mg PO DAILY 08/10/15 Aspirin [Aspirin, Baby] 81 mg PO DAILY@0800 08/10/15 Cholecalciferol (VIT D3) [Vitamin D3] 2,000 unit PO BID 08/10/15 Flecainide [Tambocor] 50 mg PO DAILY 08/10/15 Folic Acid 1 mg PO DAILY@0800 08/10/15 Insulin Glargine,Hum.rec.anlog [Lantus] 27 unit SQ QHS 08/10/15 Insulin Lispro [Humalog] 10 unit SQ TIDCM 08/10/15 Warfarin [Coumadin] 4 mg PO SUTHFRSA 05/24/18 Levothyroxine Sodium [Synthroid] 200 mcg PO DAILY 10/04/18 Pravastatin [Pravachol] 40 mg PO DAILY 10/04/18 Warfarin Sodium 6 mg PO MOTUWE 10/04/18 Clonidine Patch [Catapres-Tts1] 0.1 mg TRANSDERM. Q7D #1 patch 10/07/18 Furosemide [Lasix] 40 mg PO DAILY tablet 10/07/18 Losartan Potassium [Cozaar] 50 mg PO BID #60 tablet 10/07/18 Metoprolol(XL)Succ [Toprol Xl (Beta Fabio)] 50 mg PO DAILY #30 tablet 10/07/18 The following prescriptions were given: Clonidine Patch [Catapres-Tts1] 0.1 mg TRANSDERM. Q7D #1 patch Metoprolol(XL)Succ [Toprol Xl (Beta Fabio)] 50 mg PO DAILY #30 tablet Losartan Potassium [Cozaar] 50 mg PO BID #60 tablet Orders to be completed after discharge: 30-Day Event Recorder [[facility]] Location: None Selected Primary Care Physician: Marcelino Moon DO [Primary Care Provider] - Please follow up with your Primary Care Physician in: 1 Week Test Results: Test results from this visit will be discussed in further detail at your follow-up appointment, if applicable. Please Follow Up With: Adelfo Thompson MD When: 6 Weeks Proposed Discharge Date: 10/07/18 10/07/18 1127 <Electronically signed by Raine NUNEZ> Date Raine NUNEZ CC: Marlo Spencer MD; Marcelino Kerr DO Signed BEDSIDE GLUCOSE Collected: 10/07/2018 Status: F Source: [place] 6:[place] [facility] [place] CODE TESTS RESULT OUT OF REFERENCE UNITS RANGE LAB L501.080 70-110 mg/dL High BEDSIDE GLU 174 Result Comment: MANAGEMENT OF PATIENT CARE PER NURSING PROTOCOL Performed By: #### L501.080 #### [facility] Point of Care [address] [place] [address] PROTHROMBIN TIME W/INR Collected: 10/07/2018 Status: F Source: [place] 5:45 [place] [facility] [place] CODE TESTS RESULT OUT OF RANGE REFERENCE UNITS LAB L300.4150 11.7-14.9 SECONDS High PROTIME 25.9 LAB L300.4200 Normal INR 2.4 Performed By: #### L300.3900 #### [facility] [address] [place], [address] BEDSIDE GLUCOSE Collected: 10/06/2018 Status: F Source: [place] 10:26 PM [facility] [place] CODE TESTS RESULT OUT OF REFERENCE UNITS RANGE LAB L501.080 70-110 mg/dL High BEDSIDE GLU 157 Result Comment: MANAGEMENT OF PATIENT CARE PER NURSING PROTOCOL Performed By: #### L501.080 #### [facility] Point of Care [address] [place] [address] BEDSIDE GLUCOSE Collected: 10/06/2018 Status: F Source: [place] 4:06 PM [facility] [place] CODE TESTS RESULT OUT OF REFERENCE UNITS RANGE LAB L501.080 70-110 mg/dL High BEDSIDE GLU 113 Result Comment: MANAGEMENT OF PATIENT CARE PER NURSING PROTOCOL Performed By: #### L501.080 #### [facility] Point of Care [address] [place] [address] BEDSIDE GLUCOSE Collected: 10/06/2018 Status: F Source: [place] 11:10 AM [facility] [place] CODE TESTS RESULT OUT OF REFERENCE UNITS RANGE LAB L501.080 70-110 mg/dL High BEDSIDE GLU 251 Result Comment: MANAGEMENT OF PATIENT CARE PER NURSING PROTOCOL Performed By: #### L501.080 #### [facility] Point of Care [address] [place] [address] BEDSIDE GLUCOSE Collected: 10/06/2018 Status: F Source: [place] 6:53 AM [facility] [place] CODE TESTS RESULT OUT OF REFERENCE UNITS RANGE LAB L501.080 70-110 mg/dL High BEDSIDE GLU 149 Result Comment: MANAGEMENT OF PATIENT CARE PER NURSING PROTOCOL Performed By: #### L501.080 #### [facility] Point of Care [address] [place] [address] CBC-COMPLETE BLOOD CNT Collected: 10/06/2018 Status: F Source: [place] NO DIFF 5:22 AM [facility] [place] CODE TESTS RESULT OUT OF RANGE REFERENCE UNITS LAB L100.1000 4.4-11.0 K/mm3 High WBC 12.1 LAB L100.1200 4.2-5.4 M/mm3 Normal RBC 4.39 LAB L100.1300 12.0-15.0 g/dl Normal HGB 13.2 LAB L100.1400 37-47 % Normal HCT 40.7 LAB L100.1500 81-99 fL Normal MCV 92.7 LAB L100.1600 27.0-32.0 pg Normal MCH 30.1 LAB L100.1700 32-36 g/gl Normal MCHC 32.4 LAB L100.1810 11.6-14.6 % High RDW CV 14.8 LAB L100.1820 35.1-43.9 fl High RDW SD 48.8 LAB L100.1900 150-450 K/mm3 Normal PLT 261 LAB L100.2000 6.2-12.0 fl Normal MPV 11.5 Performed By: #### L100.0500 #### [facility] [address] [facility]. [place], [place], [address] PROTHROMBIN TIME W/INR Collected: 10/06/2018 Status: F Source: [place] 5:22 AM [facility] [place] TYPE CODE TESTS RESULT OUT OF RANGE REFERENCE UNITS LAB L300.4150 11.7-14.9 SECONDS High PROTIME 32.8 LAB L300.4200 Normal INR 3.2 Performed By: #### L300.3900 #### [facility] [address] [facility] [place], [address] BASIC METABOLIC Collected: 10/06/2018 Status: F Source: [place] PROFILE (BMP) 5:22 AM [facility] [place] CODE TESTS RESULT OUT OF RANGE REFERENCE UNITS LAB L501.0100 74-106 mg/dL High GLU 141 Result Comment: Fasting Glucose result greater than or equal to 126 mg/dL suggests DIABETES MELLITUS per A.D.A. criteria. Please note revised GLUCOSE reference range effective 2017. LAB L501.1000 7-18 mg/dL High BUN 38 LAB L501.1100 0.55-1.02 mg/dL High CREAT,SERUM 1.45 Result Comment: The validity of the calculated GFR AND GFRAA in patients over 70 years has not been determined. Clinical correlation is essential. LAB L501.1110 >60 mL/min Low EST GFR 37 Result Comment: Non- GFR Calc LAB L501.1115 >60 mL/min Low EST GFR - AA 45 Result Comment: GFR Calc LAB L501.1255 ml/min Normal Estimated CRCL 24.88 LAB L501.1300 10-20 RATIO High BUN/CRE 26.2 LAB L501.2200 8.5-10 mg/dL Normal .1 CA 8.8 LAB L501.5300 136-14 mmol/L Normal 5 NA 141 LAB L501.5600 3.5-5. mmol/L Normal 1 K 4.6 LAB L501.5900 98-107 mmol/L Normal CL 106 LAB L501.6100 21.0-3 mmol/L Normal 2.0 CO2 25.0 LAB L501.6200 5-15 Normal GAP 10 Performed By: #### L500.2500 #### [facility] [address] [place], [address] BEDSIDE GLUCOSE Collected: 10/05/2018 Status: F Source: [place] 11:12 PM [facility] [place] CODE TESTS RESULT OUT OF REFERENCE UNITS RANGE LAB L501.080 70-110 mg/dL High BEDSIDE GLU 156 Result Comment: MANAGEMENT OF PATIENT CARE PER NURSING PROTOCOL Performed By: #### L501.080 #### [facility] Point of Care [address] [place] [address] BEDSIDE GLUCOSE Collected: 10/05/2018 Status: F Source: [place] 5:44 PM [facility] [place] TYPE CODE TESTS RESULT OUT OF REFERENCE UNITS RANGE LAB L501.080 70-110 mg/dL High BEDSIDE GLU 192 Result Comment: MANAGEMENT OF PATIENT CARE PER NURSING PROTOCOL Performed By: #### L501.080 #### [facility] Point of Care [address] [place] [address] BEDSIDE GLUCOSE Collected: 10/05/2018 Status: F Source: [place] 3:53 PM [facility] [place] CODE TESTS RESULT OUT OF REFERENCE UNITS RANGE LAB L501.080 70-110 mg/dL High BEDSIDE GLU 126 Result Comment: MANAGEMENT OF PATIENT CARE PER NURSING PROTOCOL Performed By: #### L501.080 #### [facility] Point of Care [address] [place] [address] BEDSIDE GLUCOSE Collected: 10/05/2018 Status: F Source: [place] 12:14 PM [facility] [place] TYPE CODE TESTS RESULT OUT OF REFERENCE UNITS RANGE LAB L501.080 70-110 mg/dL High BEDSIDE GLU 155 Result Comment: MANAGEMENT OF PATIENT CARE PER NURSING PROTOCOL Performed By: #### L501.080 #### [facility] Point of Care [address] [place] [address] CONSULTATION Observed: 10/05/2018 Status: F Source: [place] 11:25 AM [facility] [place] [facility] Medical Records Department [address] [place] [address] Consultation 10/05/18 1110 MR#: [id number] Acct: [id number] Name: REY GUY Rep #: [id number] : 1940 78 From: Marlo Spencer MD PCP: Marcelino Kerr DO Status: ADM IN Location: [place] [address] Problem List (1) Bradycardia Status: Acute (2) Pre-syncope Status: Acute (3) Paroxysmal atrial fibrillation Status: Chronic Comment: on coumadin (4) HTN (hypertension) Status: Chronic Reason for Consult Date of Consultation: 10/05/18 Reason for Consultation: Bradycardia, paroxysmal atrial fibrillation, hypertension, presyncope History of Present Illness: The patient is a 78 year old F, patient of Dr. Arreaga, with a history of atrial fibrillation approximately 5 years in time, no previous CVA, positive diabetes with associated Garcia's palsy, hypertension, hypercholesterolemia, no known coronary disease or stents. Over the past month, the patient has noted new onset fatigue, with associated tiredness, shortness of breath, episodes of lightheadedness, presyncope and a syncopal event in June. In addition during these episodes she develops chest pressure which relieves on its own. Patient cannot recall the last time she had a stress test. The patient sought medical attention last evening in the emergency room for episodes of lightheadedness and dizziness. She was found to have atrial fibrillation with slow ventricular response, with episodes of significant bradycardia and associated lightheadedness and dizziness during those episodes. It was found the patient was on Toprol xl 100 mg p.o.daily and flecainide therapy. The patient was admitted and ruled out for myocardial infarction x3 enzymes sets. She underwent a 2D echo with Doppler this morning which showed hyperdynamic LV function with an EF around 75%, mild to moderate posteriorly directed mitral regurgitation, and an RVSP of approximately 51 mmHg. Patient spontaneously converted back to normal sinus rhythm and underwent a dobutamine echocardiogram this morning. This was negative for inducible ischemia. Patient had excellent chronotropic response to dobutamine therapy. Of note the patient has significant hypertension during her visit in the hospital, which does not appear to be well controlled despite Toprol, Norvasc, and clonidine. patient is on significant clonidine therapy which may be contributing to her bradycardia.. [] Past Medical History Allergies/Adverse Reactions: Allergies atorvastatin calcium [From Lipitor] Adverse Reaction (Verified 10/04/18 15:45) cough enalapril maleate [From Vasotec] Adverse Reaction (Verified 10/04/18 15:45) cough enalaprilat dihydrate [From Vasotec] Adverse Reaction (Verified 10/04/18 15:45) cough Home Medications: Ambulatory Orders Medication Instructions Recorded Past Medical History (Chronic Problems): Chronic Problems Diabetes mellitus (Chronic) Cerebrovascular disease (Chronic) asympt small left thalamic infarct Paroxysmal atrial fibrillation (Chronic) on coumadin Gout (Chronic) Osteoporosis (Chronic) Hypothyroid (Chronic) Dyslipidemia (Chronic) HTN (hypertension) (Chronic) HLD (hyperlipidemia) (Chronic) CKD (chronic kidney disease) stage 2, GFR 60-89 ml/min (Chronic) Surgical History: - - Tubal ligation Psychiatric History: No pertinent psych hx HEALTH ADMINISTRATION TEACHER History: No pertinent HEALTH ADMINISTRATION TEACHER history - *Family History Maternal History Items: Hypertension, Stroke Paternal History Items: Heart Disease Lives: Spouse/ Significant Other Smoking Status: Never smoker Tobacco Use: Secondhand Alcohol: None Drugs: None Review of Systems - Review of Systems General: Reports: Fatigue, Malaise. Denies: Fever, Night Sweats Cardiovascular: Reports: Chest Discomfort at Rest, Peripheral Edema, Lightheadedness, Near Syncope. Denies: Chest Discomfort, Shortness of Breath, Orthopnea, PND, Palpitations, Dizziness, Syncope Respiratory: Denies: Cough, Sputum Production, Hemoptysis Gastrointestinal: Denies: Hematemesis, Hematochezia, Melena Genitourinary: Denies: Dysuria, Hematuria Skin: Denies: Rash Subjectve: Patient laying in bed, no acute distress. Objective: Vital Signs Temp Pulse Resp BP Pulse Ox 98.0 F 102 H 17 143/82 H 92 10/05/18 08:53 10/05/18 10:57 10/05/18 08:53 10/05/18 08:53 10/05/18 08:53 Oxygen Delivery Method Room Air Weight: 203 lb 4.259 oz Body Mass Index (BMI) 37.7 Finger Stick Blood Glucose 140 Intake and Output for Last 24 Hours Intake Total 360 / 360 240 / 240 Output Total 1700 / 1700 800 / 800 Balance -1340 / -1340 -560 / -560 General: Awake, Alert, Oriented x 3 HEENT: PERRL, EOMI, Sclera Non Icteric Neck: Supple, Good ROM, No Lymph Node Enlargement Lungs: Clear to auscultation Cardiovascular: Regular Rhythm, Normal S1, Normal S2, No Rubs, No Gallops Murmur Murmur: Grade 2/6, Holosystolic Vascular: No Carotid Bruits, Normal Femoral Pulses, Normal Radial Pulses, Normal Dorsalis Pedal Pulse, Normal Posterior Tibial Pulses Abdomen: Bowel Sounds Present, Soft, Non Tender, No HSM, No Organomegaly Extremities: No Cyanosis, No Clubbing, No edema Neurological: No Focal Motor or Sensory Deficit 10/04/18 14:00: WBC 11.8 H, RBC 4.41, Hgb 13.1, Hct 40.2, MCV 91.2, MCH 29.7, MCHC 32.6, RDW 14.8 H, RDW Differential 48.9 H, Plt Count 290, MPV 10.8, Immature Gran % (Auto) 0.200, Neut % (Auto) 67.7, Lymph % (Auto) 22.3, [place] % (Auto) 6.5, Eos % (Auto) 3.0, Baso % (Auto) 0.3, Absolute Neuts (auto) 8.0 H, Total Counted Not Reportable 10/04/18 14:00: Sodium 139, Potassium 4.5, Chloride 106, Carbon Dioxide 25.0, Anion Gap 8, BUN 38 H, Creatinine 1.42 H, Est GFR (MDRD) Af Amer 46 L, Est GFR (MDRD) Non-Af 38 L, BUN/Creatinine Ratio 26.8 H, Glucose 111 H, Calcium 9.3, Troponin I < 0.015 10/04/18 14:00: Magnesium 2.2 10/04/18 14:20: PT 32.3 H, INR 3.1 10/04/18 18:10: Troponin I < 0.015 10/04/18 21:20: Troponin I < 0.015 10/05/18 07:10: WBC 10.4, RBC 4.02 L, Hgb 11.9 L, Hct 36.9 L, MCV 91.8, MCH 29.6, MCHC 32.2, RDW 14.9 H, RDW Differential 49.7 H, Plt Count 247, MPV 10.7, Immature Gran % (Auto) 0.100, Neut % (Auto) 53.3, Lymph % (Auto) 32.5, Carolina % (Auto) 8.0, Eos % (Auto) 5.7 H, Baso % (Auto) 0.4, Absolute Neuts (auto) 5.6, Total Counted Not Reportable 10/05/18 07:10: Sodium 142, Potassium 4.0, Chloride 108 H, Carbon Dioxide 26.0, Anion Gap 8, BUN 33 H, Creatinine 1.26 H, Est GFR (MDRD) Af Amer 53 L, Est GFR (MDRD) Non-Af 44 L, BUN/Creatinine Ratio 26.2 H, Glucose 126 H, Calcium 8.5, Triglycerides 113, Cholesterol 126, LDL Cholesterol 68, VLDL Cholesterol 23, HDL Cholesterol 35 L 10/05/18 07:10: PT 36.0 H, INR 3.6 H* Rhythm: EKG: ECHO: As above Stress Test: As above Cardiac Cath: PCI: CT Surgery: Holter monitor: EPS: PPM: CXR: Chest CT Scan: Assessment/Plan #1. Paroxysmal atrial fibrillation: The patient is back in normal sinus rhythm and underwent a dobutamine echocardiogram which showed no evidence of ischemia. Patient's main complaint is fatigue, lightheadedness, dizziness, presyncope, superimposed upon episodes of bradycardia. The patient is on significant rate controlling medications including flecainide, Toprol-XL 100 mg a day, and clonidine patch 0.3 mg every 7 days. Patient has had known atrial fibrillation for some time and is on Coumadin therapy. Her stress test is negative and she does not require diagnostic coronary angiogram at this time. Recommend continuing Coumadin therapy. Initially his her flecainide was held until her stress test was completed and due to her episodes of bradycardia. It appears she does better with sinus rhythm and would recommend continuing flecainide therapy since her stress test is negative. Would also recommend changing her Toprol to 50 mg p.o. twice daily, continuing Norvasc, and starting her on Cozaar 25 mg p.o. daily to assist with her antihypertensive measures. It is possible the patient's clonidine patch is also contributing to her episodes of bradycardia and positional dizziness. This may be exacerbated in the early days of her patch during the week. We may need to consider switching her to p.o. clonidine rather than the patch. Recommend ambulatory blood pressure measurements to determine if the patient develops hypertension which may be contributing to her symptoms as well. Patient initially presented with evidence on chest x-ray of congestive heart failure and she has had a significant increase in her pulmonary pressures for at least moderate pulmonary hypertension with RVSP of around 50 mmHg. This is significant increase over her echocardiogram in 2012 which showed pulmonary pressures in the 30s. The patient appears to have responded well to IV Lasix therapy. Recommend discontinuation of IV Lasix and switching her to Lasix 40 mg p.o. daily. Would recommend discontinuation of spironolactone. Her TSH is normal, and free T4 is slightly elevated. Continue Synthroid. 2. Thank you very much for the opportunity to participate in the cardiac care of your patient. Consultation took place between 1030 and 11:05 AM. Code Visit Inpatient E AND M: [id number] Init Hosp L2 10/05/18 1125 <Electronically signed by Marlo Spencer MD> Date Marlo Spencer MD Cosigner Signature (if applicable): Date CC: Marlo Spencer MD; Marcelino Kerr DO Signed STRESS TEST ECHO W/O Observed: 10/05/2018 Status: F Source: [place] 11:10 AM [facility] [place] [facility] Cardiovascular Services [address] [place] [address] Stress Test Echo w/o Contrast MR#: [id number] Acct: [id number] Name: REY GUY Rep #: [id number] : 1940 78 From: Marlo Spencer MD Primary Care: Marcelino Kerr DO Status: ADM IN Ordering Dr: Marlo Spencer MD Sex: F C Reason For Study: ATRIAL FIBRILLATION Stress Results Protocol: Dobutamine Stress Echocardiogram Maximum Predicted HR: 141 bpm Target HR: 120 bpm % Maximum Predicted HR: 89 % DurationHeart Rate Stage (mm:ss) (bpm) BP DoseComment BASELINE 72 172/78 NSR DSE- 10 MCG 3:17 75 161/6310.00 DSE- 20 MCG 3:12 96 170/7720.00 DSE- 30 MCG 3:56 125 169/6730.00NO SX RECOVERY 99 154/66 Stress Duration: 10:25 mm:ss Maximum Stress HR: 125 bpm Baseline Echocardiogram Findings The estimated ejection fraction is 75 %. Mild diffuse mitral valve thickening. Moderate mitral annular calcification extending into the posterior leaflet. Stress Echo Wall motion Data Resting WM Intermediate WM Stress WM Resting Wall Motion Wall Motion Stress No regional wall motion No regional wall motion abnormalities noted. abnormalities noted. EKG Data The baseline ECG displays normal sinus rhythm. The patient was titrated from 10 mcg to a maximun of 30 mcg of dobutamine during the stress. This was 88% of maximum predicted heart rate. The maximum heart rate attained was 125 beats per minute. During dobutamine infusion, there were no ST or T wave changes noted to suggest ischemia. No clinical angina was noted. No arrhythmias noted. Interpretation Summary The estimated ejection fraction is 75 %. Normal, adequate, dobutamine echocardiogram. Negative for ischemia by EKG and echocardiographic criteria. No anginal symptoms noted. No arrhythmias noted. Baseline hypertension with appropriate blood pressure response to dobutamine. Patient had excellent chronotropic response to dobutamine. Final LVEF of 75-80%. Test terminated due to the attainment of target heart rate. Ordering Physician: Tj Referring Physician: MARCELINO MOON Performed By: RR 10/05/18 1109 Date Marlo Spencer MD CC: Beatriz Giang; Marlo Spencer MD; Marcelino Kerr DO Date Dictated: 10/05/18909 Date Transcribed: 10/05/181108 Senior Formulation Scientist: Signed ECHOCARDIOGRAM COMPLETE Observed: 10/05/2018 Status: F Source: [place] 11:[place] [facility] [place] [facility] Cardiovascular Services [address] [place] [id number] Echo Complete 10/05/18 0747 MR#: [id number] Acct: [id number] Name: REY GUY Rep #: [id number] : 1940 78 From: Marlo Spencer MD Attending Dr: Beatriz Giang Status: ADM IN Ordering Dr: Kayla Bowden Date: 10/04/18 Location: [facility] Sex: F C Admitted: 10/04/18 Reason For Study: CHF Procedure This was a 2D Doppler, Color Flow transthoracic echocardiogram. Exam performed portable in patient room. Left Ventricle Mild concentric left ventricular hypertrophy. The estimated ejection fraction is 75 %. No regional wall motion abnormalities noted. Right Ventricle Mildly dilated right ventricle. Normal systolic function. Atria The left atrium is moderately enlarged. Normal right atrium. Normal atrial septum. Mitral Valve Mild diffuse mitral valve thickening. Moderate mitral annular calcification extending into the posterior leaflet. Mild-Moderate (1-2+) posteriorly directed mitral valve insufficiency. Tricuspid Valve Normal tricuspid valve. Mild (1+) tricuspid valve insufficiency. Right ventricular systolic pressure estimated to be 51 mmHg. Moderate pulmonary hypertension. Aortic Valve Trisinus/trileaflet aortic valve. Mild diffuse aortic valve thickening. Pulmonic Valve Normal pulmonic valve. Trivial pulmonic valve insufficiency. Great Vessels Normal aortic root. Normal arch. Normal inferior vena cava. Inferior vena cava collapse with sniff. Pericardium/Pleural No pericardial effusion. MMode/2D Measurements AND Calculations LVIDd: 3.7 cm IVSd: 1.5 cm LVOT diam: 2.0 cm LVIDs: 2.7 cm LVPWd: 1.2 cm LVOT area: 3.1 cm2 RVDd: 3.7 cm FS: 27.4 % Ao root diam: 3.4 cm LAV(MOD-bp): 45.6 ml LVAd ap4: 21.5 cm2 LAV(MOD-bp) Indexed: 23.0 ml/m2 EDV(MOD-sp4): 55.7 ml LAV(MOD-sp2): 49.4 ml EDV(sp4-el): 56.5 ml LAV(MOD-sp4): 41.8 ml LVAs ap4: 11.6 cm2 ESV(MOD-sp4): 18.9 ml ESV(sp4-el): 19.0 ml EF(MOD-sp4): 66.0 % EF(sp4-el): 66.4 % SV(MOD-sp4): 36.8 ml SV(sp4-el): 37.5 ml LA A4 area: 17.4 cm2 LA dimension(2D): 4.9 cm RA A4 area: 18.2 cm2 Time Measurements MV dec time: 0.14 sec Doppler Measurements AND Calculations MV E max vineet: 142.9 cm/sec MV V2 max: 168.2 cm/sec MV P1/2t max vineet: 156.3 cm/sec MV max P.3 mmHg MV P1/2t: 112.5 msec MV V2 mean: 100.8 cm/sec MV dec slope: 407.0 cm/sec2 MV mean P.8 mmHg MVA(P1/2t): 2.0 cm2 MV V2 VTI: 31.0 cm MVA(VTI): 2.3 cm2 Ao V2 max: 192.8 cm/sec LV V1 max: 107.7 cm/sec SV(LVOT): 71.5 ml Ao max P.9 mmHg LV V1 max P.6 mmHg Ao V2 mean: 125.1 cm/sec LV V1 mean P.5 mmHg Ao mean P.1 mmHg LV V1 mean: 75.0 cm/sec Ao V2 VTI: 38.6 cm LV V1 VTI: 22.8 cm BAILEY(I,D): 1.8 cm2 BAILEY(V,D): 1.8 cm2 PA V2 max: 126.1 cm/sec TR max vineet: 298.3 cm/sec TR max P.6 mmHg Interpretation Summary Mild concentric left ventricular hypertrophy. The estimated ejection fraction is 75 %. Mildly dilated right ventricle. The left atrium is moderately enlarged. Mild-Moderate (1-2+) posteriorly directed mitral valve insufficiency. Mild (1+) tricuspid valve insufficiency. Right ventricular systolic pressure estimated to be 51 mmHg. Moderate pulmonary hypertension. Compared to echo report dated 03/10/2013, LV function has remained the same, but RVSP has now increased from 30 to 51 mm Hg. Pt now appears to be in atrial fibrillation. Ordering Physician: Kayla Bowden Referring Physician: Marcelino Kerr Performed By: Griselda Posadas, MOOK, RVT 10/05/18 1105 Date Marlo Spencer MD CC: Kayla Bowden; Beatriz Giang; Marcelino Kerr DO Date Dictated: 10/05/18 0747 Date Transcribed: 10/05/18 2415 Senior Formulation Scientist: Signed CBC W/DIFF, AUTOMATED Collected: 10/05/2018 Status: F Source: [place] 7:10 [place] [facility] [place] TYPE CODE TESTS RESULT OUT OF RANGE REFERENCE UNITS LAB L100.1000 4.4-11.0 K/mm3 Normal WBC 10.4 LAB L100.1200 4.2-5.4 M/mm3 Low RBC 4.02 LAB L100.1300 12.0-15.0 g/dl Low HGB 11.9 LAB L100.1400 37-47 % Low HCT 36.9 LAB L100.1500 81-99 fL Normal MCV 91.8 LAB L100.1600 27.0-32.0 pg Normal MCH 29.6 LAB L100.1700 32-36 g/gl Normal MCHC 32.2 LAB L100.1810 11.6-14.6 % High RDW CV 14.9 LAB L100.1820 35.1-43.9 fl High RDW SD 49.7 LAB L100.1900 150-450 K/mm3 Normal PLT 247 LAB L100.2000 6.2-12.0 fl Normal MPV 10.7 LAB L100.2100 47-70 % Normal NEUT% 53.3 LAB L100.2200 19-41 % Normal LY% 32.5 LAB L100.2300 0-10 % Normal MONO% 8.0 LAB L100.2400 0-5 % High EO% 5.7 LAB L100.2500 0-1 % Normal BASO% 0.4 LAB L100.2550 0.0-0.9 % Normal IM GRAN % 0.100 Result Comment: IG% - Immature Granulocytes (promyelocytes, myelocytes and metamyelocytes) > 1% indicates that a LEFT SHIFT is Present. LAB L100.2620 2.0-7.7 X10 3/uL Normal Absolute Neut 5.6 LAB L100.2720 0.83-4.51 X10 3/ul Normal Absolute Lymph 3.39 Performed By: #### L100.0100 #### [facility] [address]. [place], [place], [address] PROTHROMBIN TIME W/INR Collected: 10/05/2018 Status: F Source: [place] 7:10 AM [facility] [place] Order Comment: CRITICAL VALUE VERIFIED. CALLED TO SHANTELLE CAPONE 10/05/18 Daniel Cifuentes. RESULTS READ BACK BY SAME . TYPE CODE TESTS RESULT OUT OF REFERENCE UNITS RANGE LAB L300.4150 11.7-14.9 SECONDS High PROTIME 36.0 LAB L300.4200 High alert INR 3.6 Performed By: #### L300.3900 #### [facility] [address] [facility] [facility]. [place], [place], [address] BASIC METABOLIC Collected: 10/05/2018 Status: F Source: [place] PROFILE (BMP) 7:10 AM [facility] [place] TYPE CODE TESTS RESULT OUT OF RANGE REFERENCE UNITS LAB L501.0100 74-106 mg/dL High GLU 126 Result Comment: Fasting Glucose result greater than or equal to 126 mg/dL suggests DIABETES MELLITUS per A.D.A. criteria. Please note revised GLUCOSE reference range effective 2017. LAB L501.1000 7-18 mg/dL High BUN 33 LAB L501.1100 0.55-1.02 mg/dL High CREAT,SERUM 1.26 Result Comment: The validity of the calculated GFR AND GFRAA in patients over 70 years has not been determined. Clinical correlation is essential. LAB L501.1110 >60 mL/min Low EST GFR 44 Result Comment: Non- GFR Calc LAB L501.1115 >60 mL/min Low EST GFR - AA 53 Result Comment: GFR Calc LAB L501.1255 ml/min Normal Estimated CRCL 28.63 LAB L501.1300 10-20 RATIO High BUN/CRE 26.2 LAB L501.2200 8.5-10 mg/dL Normal .1 CA 8.5 LAB L501.5300 136-14 mmol/L Normal 5 NA 142 LAB L501.5600 3.5-5. mmol/L Normal 1 K 4.0 LAB L501.5900 98-107 mmol/L High CL 108 LAB L501.6100 21.0-3 mmol/L Normal 2.0 CO2 26.0 LAB L501.6200 5-15 Normal GAP 8 Performed By: #### L500.2500, L500.4100 #### [facility] [address] [place], [address] LIPID PROFILE Collected: 10/05/2018 Status: F Source: [place] 7:10 AM [facility] [place] TYPE CODE TESTS RESULT OUT OF RANGE REFERENCE UNITS LAB L501.4900 200 mg/dL Normal CHOL 126 Result Comment: <200 mg/dL Desirable 200-240 mg/dL Borderline >240 mg/dL High Risk LAB L501.5000 mg/dL Normal TRIG 113 Result Comment: The drugs N-Acetylcysteine and Metamizole may falsely depress this assay. Serum Triglycerides Reference Interval Normal <150 mg/dL Borderline high 150 - 199 mg/dL High 200 - 499 mg/dL Very High > or = 500 mg/dL LAB L501.6400 mg/dL Low HDL 35 Result Comment: The drugs N-Acetylcysteine and Metamizole may falsely depress this assay. Reference Range HDL <40 mg/dL Low HDL Cholesterol HDL >or= 60 mg/dL High HDL Cholesterol LAB L501.6500 0-130 mg/dL Normal LDL 68 LAB L501.6600 5-40 mg/dL Normal VLDL 23 Performed By: #### L500.2500, L500.4100 #### [facility] [address] [place], [address] BEDSIDE GLUCOSE Collected: 10/05/2018 Status: F Source: [place] 6:51 AM [facility] [place] TYPE CODE TESTS RESULT OUT OF REFERENCE UNITS RANGE LAB L501.080 70-110 mg/dL High BEDSIDE GLU 122 Result Comment: MANAGEMENT OF PATIENT CARE PER NURSING PROTOCOL Performed By: #### L501.080 #### [facility] Point of Care [address] [place] [address] BEDSIDE GLUCOSE Collected: 10/04/2018 Status: F Source: [place] 10:02 PM [facility] [place] TYPE CODE TESTS RESULT OUT OF REFERENCE UNITS RANGE LAB L501.080 70-110 mg/dL High BEDSIDE GLU 183 Result Comment: MANAGEMENT OF PATIENT CARE PER NURSING PROTOCOL Performed By: #### L501.080 #### [facility] Point of Care [address] [facility] [address] [place] [address] TROPONIN-I Collected: 10/04/2018 Status: F Source: [place] 9:20 PM [facility] [place] Order Comment: 'TROP' Serial specimen #1, #2 or #3: 3 TYPE CODE TESTS RESULT OUT OF RANGE REFERENCE UNITS LAB L501.4010 <0.045 ng/mL Normal < 0.015 TROPONIN-I Result Comment: TROPONIN-I EXPECTED VALUES <0.045 Negative 0.045 - 0.590 Consistent with Cardiac Damage > OR = 0.600 Critical Value Not every elevated troponin is indicative of SD. These values should be used with clinical judgement in examining the patient's clinical picture for diagnosis. To establish a diagnosis of SD versus myocardial injury, there must be a demonstrated rise and/or fall in the troponin values, in addition to ischemic symptoms, EKG changes, new regional wall motion abnormality, and/or angiographical evidence. PLEASE NOTE: REFERENCE RANGES EDITED 18 Performed By: #### L501.4010 #### [facility] [address] [place], [address] TROPONIN-I Collected: 10/04/2018 Status: F Source: [place] 6:10 PM [facility] [place] Order Comment: 'TROP' Serial specimen #1, #2 or #3: 2 TYPE CODE TESTS RESULT OUT OF RANGE REFERENCE UNITS LAB L501.4010 <0.045 ng/mL Normal < 0.015 TROPONIN-I Result Comment: TROPONIN-I EXPECTED VALUES <0.045 Negative 0.045 - 0.590 Consistent with Cardiac Damage > OR = 0.600 Critical Value Not every elevated troponin is indicative of SD. These values should be used with clinical judgement in examining the patient's clinical picture for diagnosis. To establish a diagnosis of SD versus myocardial injury, there must be a demonstrated rise and/or fall in the troponin values, in addition to ischemic symptoms, EKG changes, new regional wall motion abnormality, and/or angiographical evidence. PLEASE NOTE: REFERENCE RANGES EDITED 18 Performed By: #### L501.4010 #### [facility] [address] [place], [address] BEDSIDE GLUCOSE Collected: 10/04/2018 Status: F Source: [place] 5:51 PM [facility] [place] TYPE CODE TESTS RESULT OUT OF REFERENCE UNITS RANGE LAB L501.080 70-110 mg/dL High BEDSIDE GLU 124 Result Comment: MANAGEMENT OF PATIENT CARE PER NURSING PROTOCOL Performed By: #### L501.080 #### [facility] Point of Care [address] [place] [address] EMERGENCY DEPARTMENT Observed: 10/04/2018 Status: F Source: [place] SUMMARY 5:26 PM [facility] [place] [facility] Medical Records Department [address] [place] [address] Emergency Department Summary 10/04/18 1553 MR#: [id number] Acct: [id number] Name: REY GUY Rep #: [id number] : 1940 78 From: Rashel Freeman MD PCP: Marcelino Kerr DO Status: ADM IN - ER Visit Summary Date of Service: 10/04/18 Chief Complaint: Syncope History of Present Illness: The patient is a [address] Rogers and Dr. Moon. She has a history of paroxysmal atrial fibrillation. She reports that for approximately 1 year off and on she is having episodes of near syncope. States that this seems to have worsened over the past week. States that today she has had 3-4 episodes where she gets a weird sensation that comes over the back of her head and she feels as though she is going to pass out. States that lasts a few seconds. She denies any chest pain with it. She does admit to a little palpitations. Patient reports that this is unchanged or affected by standing. However, she had an episode while she was standing today. She had a syncopal episode and fell and hit her head on the refrigerator. She denies any neck, back, shoulder, wrist, or hip pain. Physical Examination: Vitals: Stable. Afebrile. General: Well-nourished and well-developed. Head: Normocephalic atraumatic. Neck: Supple, no lymphadenopathy. No JVD. Nontender. Cardiovascular: Irregularly irregular rhythm with a 2 out of 6 systolic murmur. Respiratory: No respiratory distress. Clear to auscultation bilaterally. Abdominal: Soft, nontender, nondistended, normal bowel sounds. No guarding, rebound, or peritoneal signs. Back: Nontender. Extremities: Nontender, no edema. Skin: Normal color, no rash. Neurologic: Alert and oriented 3. Cranial nerves II through XII are intact. Normal strength and sensation. Psych: Normal affect. Test Results: EKG is A. fib at 90 with no ischemic changes. Chest x-ray shows cardiomegaly. CT brain shows chronic changes. Troponin is negative. INR is pending. Chem-7 is more for glucose 111, BUN of 38, creatinine 1.42. CBC is more for white count of 11.8. Emergency Department Course and Treatment: While on the monitor in the emergency department the patient had multiple prolonged pauses of approximately 3-5 seconds that consistent with her symptomatic episodes. She had 1 of these during orthostatic vital signs and was near syncopal and helped back to bed. Treatment Plan: Patient was discussed with Dr. Spencer. She is currently on flecainide and Toprol. She will be admitted to the hospital and have medication adjustments. Patient was then discussed with Dr. Bowden. Disposition: Admitted in stable condition. Impression: 1. Atrial fibrillation on flecainide/Toprol. 2. Syncope. 3. Coumadin coagulopathy. This note was generated with [employer] software. It may contain incorrect words, spelling, and punctuation that were not noted in review of the chart prior to signing ED Disposition - Plan for ED Patient: Chief Complaint: Syncope Referrals: Marcelino Moon DO [Primary Care Provider] - What to do if you have Problems For any increased pain, shortness of breath, bleeding, nausea or vomiting, chest pain, or any unexpected problems, contact your Primary Care Provider. Call [facility] [employer] [facility] ([phone]) or report to the closest Emergency Room. Call 911 if necessary. 10/04/18 1726 <Electronically signed by Rashel Freeman MD> Date Rashel Freeman MD Cosigner Signature (If Indicated): Date CC: Marcelino Kerr DO HISTORY AND PHYSICAL Observed: 10/04/2018 Status: F Source: [place] EXAM 5:16 PM [facility] [place] [facility] Medical Records Department [address] [place] [id number] History and Physical 10/04/18 1622 MR#: [id number] Acct: [id number] Name: REY GUY Rep #: [id number] : 1940 78 From: Raine Kim FAMILY EDUCATOR-C PCP: Marcelino Kerr DO Status: ADM IN Y [id number] ADDENDUM by Kayla Bowden on 10/04/18 at 1716 Code Visit ATTENDING PHYSICIAN NOTE: I have seen and examined the patient independently and agree with the assessment, plan, history per Raine Kim as noted. Chief Complaint: Frequent symptomatic near syncopal events, dyspnea, increased lower extremity edema The patient is a 78 y/o F w/ PMHx: CKD stage III, chronic bilateral lower extremity lymphedema, history of L Thalamic CVA, History of [place] Palsy with chronic mild L sided facial droop, HTN, HLD PAD on coumadin therapy, Hypothyroidism, Gout, Diabetes mellitus type II, Obesity who presents to the [facility] ED on 10/04/17 w/ history of frequent near syncope episodes over the last year, increasing to nearly 30-40 episodes daily over the last 2 weeks, described as lightheadedness, dizziness, vision changes which she describes extending from the back of her head and folding over lasting minutes and improving when she rests and puts her head down with an episode of syncope associated with an events in June 2018. She notes that with these episodes becoming more frequent she consistently feels as though she is going to pass out. She has been following with cardiology, Dr. Rogers for her paroxysmal atrial fibrillation. She recently is also had dyspnea, worse with exertion, abdominal swelling as well as lower extremity increased swelling with recent ED evaluation the prior Sunday with diagnosis of CHF at that time with diuresis and improvement but noting now still ongoing symptoms. In the ED workup included T 98.1, heart rate 93, BP 160/115, respiratory rate 16, 92% on room air but upon evaluation decreasing to 88% on room air, CBC with WBC 11.8, hemoglobin 13.1, platelet 290 with left shift, INR 3.1, BUN/creatinine 38/1.42, pulse 111, troponin <0.015, EKG w/ PAF, telemetry with notable cardiac pauses lasting up to 5 seconds. Etiology consulted in the emergency room given cardiac pauses and recommended admission, continue telemetry monitoring, discontinuation of patient flecainide, decrease the patient long-acting metoprolol by one half dose. Labs, Allergies, Home medications, Social Hx, PSurgHx, Family Hx per note below. Admission Review of Systems: CONSTITUTIONAL: No weight loss, fever, chills, + weakness or fatigue. HEENT: Eyes: + Vision changes. No yellow sclerae. Ears, Nose, Throat: No hearing loss, sneezing, congestion, runny nose or sore throat. SKIN: No rash or itching, lesions, wounds. CARDIOVASCULAR: + Edema, orthopnea, near syncopal events. No chest pain, chest pressure or chest discomfort, palpitations. RESPIRATORY: + shortness of breath, No cough or sputum, wheezing, hemoptysis. GASTROINTESTINAL: No anorexia, nausea, vomiting or diarrhea, abdominal pain, melena, BRBPR. GENITOURINARY: No dysuria, frequency, urgency or retention. NEUROLOGICAL: + Dizziness, near syncope. No headache, paralysis, ataxia, numbness or tingling in the extremities, focal weakness, change in bowel or bladder control, seizure. MUSCULOSKELETAL: No muscle, back pain, joint pain or stiffness. HEMATOLOGIC: + anemia, bleeding or bruising. LYMPHATICS: No enlarged nodes. No history of splenectomy. PSYCHIATRIC: No history of depression or anxiety. ENDOCRINOLOGIC: No reports of sweating, cold or heat intolerance. No polyuria or polydipsia. ALLERGIES: No history of asthma, hives, eczema or rhinitis. Admission VS: As noted below. Physical Examination: General: awake, alert, oriented x 3 and cooperative, seated upright in the ED bed in no apparent distress. Skin: normal color, turgor, no icterus, cyanosis, chronic venous stasis skin changes BL LE. HEENT: AT/NC, EOMI, PERRLA, MMM, no carotid bruits, difficult to assess JVD with thickened neck, chronic mild L facial droop. Lungs: Diminished BS BL, > bases, minimal rales bases, no ronchi or wheezing. Heart: Irregular irregular; no gallop, rub audible. Abdomen: soft, obese, NTTP, ND, normal BS, no HSM. Extremities: no cyanosis, clubbing, BL pedal to proximal warren pitting edema, chronic venous stasis skin changes. Neurological: patient awake, alert, oriented x 3; cognitive function intact; pupils equally reactive to light and accomodation; cranial nerves II-XII grossly normal, moving all 4 extremities, no focal deficits, strength severely globally decreased secondary to acute presentation. Psychiatric: affect appears normal, no acute evidence of depressive or anxiety feelings. Assessment and Plan: The patient is a 78 y/o F w/ PMHx: CKD stage III, chronic bilateral lower extremity lymphedema, history of L Thalamic CVA, History of [place] Palsy with chronic mild L sided facial droop, HTN, HLD PAD on coumadin therapy, Hypothyroidism, Gout, Diabetes mellitus type II, Obesity who presents to the [facility] ED on 1/4/18 w/ history of frequent near syncope episodes over the last year, increasing to nearly 30-40 episodes daily over the last 2 weeks, described as lightheadedness, dizziness, vision changes which she describes extending from the back of her head and folding over lasting minutes and improving when she rests and puts her head down with an episode of syncope associated with an events in June 2018. (1) Frequent Near Syncopal Events: Likely secondary to pauses as noted on telemetry in the ED, EKG in ED w/ atrial fibrillation without evidence of acute ischemia, CXR w/ improvement of congestion, initial trop normal. Will admit to PCU, place on a monitored bed to assure no acute myocardial infarction with serial cardiac enzymes and EKGs, continue treatment for also noted CHF, mild exacerbation. Will maintain on fall precautions, pending ECHO. PT/OT consultation to ascertain stability and discharge needs. Cardiology consulted, discontinued flecainide, decreased metoprolol by one half, will continue to evaluate for improvement but if recurrent pauses will necessitate pacemaker placement. (2) Acute Decompensated Systolic/Diastolic CHF: CXR obtained in the ED w/ improved congestion from recent ED evaluation. Will maintain on cardiac telemetry, obtain cardiac enzyme series, obtain serial EKGs, continue IV lasix diuresis, monitor I/Os, maintain on intake restriction, continue medical therapy w/ asa, statin, BB, aldosterone antagonists, ACEI allergy noted. Will obtain TSH and magnesium level. Will repeat ECHO. Cardiology consulted, pending. PRN morphine to decrease afterload, continue oxygen supplementation, if necessary will position w/ upright position with legs off bed to decrease preload. Additional Co-morbidities: Diabetes mellitus type II: Hold oral home regimen, continue home insulin regimen, ADA diet, accu checks w/ ISS. Chronic Kidney Disease Stage III: Admission BUN/Cr 38/1.42, baseline renal function 1.3-1.4, stable, repeat BMP in AM. Hypertension: Continue home regimen including Norvasc, clonidine, decrease metoprolol as noted, IV Lasix as noted, spironolactone, PRN hydralazine. Hyperlipidemia: Continue home statin regimen. AM FLP. PAF: Maintain on telemetry, continue Coumadin with INR trending, decreasing metoprolol as noted, discontinuation of flecainide as noted. History of CVA, [place] Palsy: Maintain on coumadin, statin, BP regimen as noted, DM regimen as noted. CODE status: Discussed CODE status at length including difference between FULL code, DNR-CCA and DNR-CC status. Following discussions about the differences in these status, requested Full Code status. She does have healthcare power of child day care teacher, her , living will in place. Advanced Care Planning Face to Face Time: 16 minutes. 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 The patient is a 78 year old F who presents emergency room due to recurrent episodes of presyncope. Patient states she has had these episodes for approximately 1 year, increasing in severity. Patient states episodes usually last only a few minutes where she feels like she is going to pass out and then resolve on their own. She denies dizziness, lightheadedness, vision changes. Denies chest pain. Patient states today she had recurrent episodes of presyncope frequently throughout the day and decided to seek medical attention. Patient states she had a syncopal episode with fall in June 2018. She did not seek medical attention at that time. Patient follows with Dr. Fields, [facility] cardiology for paroxysmal atrial fibrillation. Patient states she came to the emergency room this week on Sunday where she was told she had CHF. She reports she refused admission at that time and decided to go home. She states she has had increased shortness of breath, lower extremity and abdominal swelling. She denies recent echo. Denies other cardiac history. She has a past medical history of chronic kidney disease stage II, hypertension, hyperlipidemia, hypothyroidism, osteoporosis, history of CVA, type 2 diabetes mellitus, paroxysmal atrial for ablation on chronic anticoagulation with Coumadin, gout. Past Medical History Past Medical History (Chronic Problems): Chronic Problems Diabetes mellitus (Chronic) Cerebrovascular disease (Chronic) asympt small left thalamic infarct Paroxysmal atrial fibrillation (Chronic) on coumadin Gout (Chronic) Osteoporosis (Chronic) Hypothyroid (Chronic) Dyslipidemia (Chronic) HTN (hypertension) (Chronic) HLD (hyperlipidemia) (Chronic) CKD (chronic kidney disease) stage 2, GFR 60-89 ml/min (Chronic) Allergies atorvastatin calcium [From Lipitor] Adverse Reaction (Verified 10/04/18 15:45) cough enalapril maleate [From Vasotec] Adverse Reaction (Verified 10/04/18 15:45) cough enalaprilat dihydrate [From Vasotec] Adverse Reaction (Verified 10/04/18 15:45) cough Home Medications: Ambulatory Orders Medication Instructions Recorded Surgical History: - - Tubal ligation Psychiatric History: No pertinent psych hx HEALTH ADMINISTRATION TEACHER History: No pertinent HEALTH 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 Denies: Chest Pain, Chest Pressure, Light Headedness Respiratory: Reports: Shortness of breath upon exertion. Denies: Cough, Shortness of breath at rest, Sputum production, Wheezing Gastrointestinal: Denies: Abdominal Pain, Nausea, Vomiting Genitourinary: Denies: Dysuria Musculoskeletal: Denies: Joint Pain, Joint Tenderness Skin: Reports: - - Chronic skin changes bilateral lower extremities with lymphedema. Denies: Rash, Wounds Neurological: Denies: Numbness, Tingling, Focal weakness Psychiatric: Denies: Anxiety, Depression, Homicidal Ideations, Suicidal Ideations Hematologic/ Lymphatic: Denies: Easy Bruising, Easy Bleeding VTE Information - Inpt Only VTE Present on Admission: No VTE Mechan Device Prophylaxis: None VTE Pharm Prophylaxis ordered?: Yes - Physical Exam General: Alert, Oriented x3, Cooperative, No apparent distress HEENT: Atraumatic, PERRLA, EOMI, Normocephalic Oral: Moist Mucosa Neck: Supple, No JVD, Negative Carotid Bruits Lungs: Clear to auscultation, Diminished Cardiovascular: - - Atrial for ablation, rate controlled. No murmur. Abdomen: Bowel Sounds Present, Soft, Non Tender, Non-Distended, Obese Extremities: No clubbing, No cyanosis, Edema - Chronic lymphedema bilateral lower extremities Skin: No rashes, No breakdown, - - Chronic skin changes bilateral lower extremity secondary to lymphedema with scattered intact fluid-filled blisters Musculoskeletal: No Tenderness to Palpation of Joints or Extremities Neurological: Cranial nerves II-XII grossly intact, Neuro grossly intact Psych/Mental Status: Normal Affect, Appropriate Vital Signs Temp Pulse Resp BP Pulse Ox 98.1 F 82 16 159/85 H 90 10/04/18 13:55 10/04/18 14:54 10/04/18 14:54 10/04/18 14:54 10/04/18 14:54 Oxygen Delivery Method Room Air Weight: 207 lb 7.28 oz Body Mass Index (BMI) 37.9 Finger Stick Blood Glucose 140 Laboratory Tests Past 24 Hrs Assessment/Plan All Active Problems Garcia's palsy (Resolved) 1. Recurrent presyncope- suspect secondary to recurrent multiple prolonged cardiac pauses as noted on telemetry. Monitor telemetry. Check TSH, mag. Obtain echo. Trend enzymes. Hold flecainide. Metoprolol reduced to 50 milligrams daily. Check orthostatic vitals. Fall precautions. Brain CT on admission with chronic changes. 2. Recurrent multiple prolonged cardiac pauses-hold flecainide. Reduce home metoprolol regimen to 50 mg daily. Consult cardiology. Monitor telemetry. 3. Mild acute on chronic diastolic CHF-chest x-ray on admission with improved CHF. Minimal residual increased markings in the right infrahilar region. Echocardiogram 2012 with EF 70%. IV Lasix 40 mg twice daily. Strict I AND O. Daily weight. Mahsa wraps bilateral lower extremities. Repeat echocardiogram. 4. Chronic lymphedema-Mahsa wraps bilateral lower extremities. 5. Paroxysmal atrial fibrillation on chronic anticoagulation with Coumadin-INR 3.1. Rate controlled. Adjustment of flecainide and metoprolol as noted above. 6. Chronic kidney disease stage II- at baseline. Follows with Dr. Hendrickson. Trend BMP. 7. Hypertension-mildly elevated on admission. Continue home amlodipine, clonidine, spironolactone. PRN hydralazine for systolic blood pressure greater than 160. Metoprolol and flecainide regimen reduced. 8. Hyperlipidemia-continue statin. 9. History of CVA-continue aspirin, statin. 10. Type 2 diabetes fnmrhsez-Rhyz-Xjubi AC at bedtime with sliding scale insulin. Continue home Lantus regimen and scheduled Humalog. 11. Hypothyroidism-continue Synthroid regimen. Check TSH. 12. Osteoporosis 13. Gout-continue allopurinol regimen. DVT prophylaxis- coumadin. This patient was seen by MAYRA Luque under the supervision of Dr. Bowden. 10/04/18 1652 <Electronically signed by Raine NUNEZ> Date Raine NUNEZ 10/04/18 1704<Electronically signed by Kayla Bowden > Cosigner Signature: Date (if applicable) Kayla Bowden CC: MAYRA Kim; Kayla Bowden; Marcelino Kerr DO Signed 12 LEAD ELECTROCARDIOGRAM Observed: 10/04/2018 Status: F Source: [place] 2:37 PM [facility] Cardiovascular Services [address] [place] [address] 12 Lead EKG 10/02/18 1206 MR#: [id number] Acct: [id number] Name: REY GUY Rep #: [id number] : 1940 78 From: Adelfo Thompson MD Attending Dr: Status: DEP ER Ordering Dr: Mann Walker DO Date: 10/02/18 Location: ED Sex: F C Admitted: Test Reason : SOB Blood Pressure : / mmHG Vent. Rate : 052 BPM Atrial Rate : 052 BPM P-R Int : 196 ms QRS Dur : 104 ms QT Int : 472 ms P-R-T Axes : 048 016 045 degrees QTc Int : 438 ms Sinus bradycardia Otherwise normal ECG Confirmed by ALEJO DUTTA, ADELFO ([id number]), art editor PHILL VAN ([id number]) on 10/04/2018 2:37:05 PM Referred By: LENNOX Confirmed By:ADELFO THOMPSON MD 10/04/18 1437 Date Adelfo Thompson MD CC: Mann Walker DO; Marcelino Kerr DO Signed PROTHROMBIN TIME W/INR Collected: 10/04/2018 Status: F Source: [place] 2:20 PM [facility] TYPE CODE TESTS RESULT OUT OF RANGE REFERENCE UNITS LAB L300.4150 11.7-14.9 SECONDS High PROTIME 32.3 LAB L300.4200 Normal INR 3.1 Performed By: #### L300.3900 #### [facility] [address] [facility] [place], [address] CHEST 1 VIEW Observed: 10/04/2018 Status: F Source: [place] (PORTABLE) 2:07 PM [facility] Imaging Services [address] [place] [address] Chest 1 View (Portable) MR#: [id number] Acct: [id number] Name: REY GUY Rep #: [id number] : 1940 F 78 From: Alvaro Martinez MD PCP: Marcelino Kerr DO Status: REG ER Study: Chest 1 View (Portable) Date of Exam: 10/04/18 Exam# [id number] Ordering Dr: Rashel Freeman MD STUDY: X-RAY CHEST REASON FOR EXAM: Female, 78 years old. Syncopal episode. TECHNIQUE: Single AP portable view of the chest. COMPARISON: Comparison is made with prior study dated October 02, 2018. FINDINGS: EKG electrodes are seen. Since prior study, the CHF has improved. Residual changes persist in the right infrahilar region suggestive of a possible scarring. Mild elevation of the right hemidiaphragm. There is no demonstrated pleural abnormality. There is mild cardiac enlargement. Normal mediastinum and jamila. Normal visualized pulmonary arteries. There is atherosclerotic calcification of the aortic arch with tortuosity. There are diffuse degenerative changes of the visualized thoracic spine. Normal visualized ribs, clavicles, and shoulders. There is no demonstrated abnormality of the visualized soft tissue structures of the upper abdomen. RAD/Chest 1 View (Portable) IMPRESSION: The CHF has cleared. Minimal residual increased markings in the right infrahilar region suggestive of atelectasis and/or scarring. Electronically Signed: Alvaro Martinez MD at 14:38 EST Tel [phone], Service support , CC: Marcelino Kerr DO; Rashel Freeman MD Senior Formulation Scientist: Signed BRAIN/HEAD WITHOUT Observed: 10/04/2018 Status: F Source: [place] CONTRAST 2:07 PM [facility] Imaging Services [address] [place] [address] Brain/Head without Contrast MR#: [id number] Acct: [id number] Name: REY GUY Rep #: [id number] : 1940 F 78 From: Alvaro Martinez MD PCP: Marcelino Kerr DO Status: REG ER Study: Brain/Head without Contrast Date of Exam: 10/04/18 Exam# [id number] Ordering Dr: Rashel Freeman MD STUDY: CT BRAIN WITHOUT CONTRAST REASON FOR EXAM: Female, 78 years old. Near syncope. History of Garcia's palsy. RADIATION DOSAGE (If Supplied By Facility): CTDIvol = ( 44.99 ) mGy, DLP = ( 779.24 ) mGycm TECHNIQUE: Transaxial CT imaging of the brain was performed without administration of intravenous contrast material. Individualized dose optimization techniques were used for this CT. COMPARISON: Comparison is made with prior examination dated September 23, 2013. FINDINGS: Normal soft tissue structures. Normal calvarium. There is mild cerebral atrophy with widening of the extra- axial spaces and ventricular dilatation. Normal white matter tracts of the cerebral hemispheres. Normal basal ganglia and thalami. Normal brainstem. Normal cerebellum. There is no intracranial hemorrhage. There are no findings of an acute ischemic infarction. Atherosclerotic calcification of the cavernous portions of the internal carotid arteries bilaterally. Normal visualized paranasal sinuses. CT/Brain/Head without Contrast IMPRESSION: Chronic involutional changes of the brain. Electronically Signed: Alvaro Martinez MD at 14:39 EST Tel [phone], Service support , CC: Marcelino Kerr DO; Rashel Freeman MD Senior Formulation Scientist: Signed CBC W/DIFF, AUTOMATED Collected: 10/04/2018 Status: F Source: [place] 2:00 PM [facility] [place] TYPE CODE TESTS RESULT OUT OF RANGE REFERENCE UNITS LAB L100.1000 4.4-11.0 K/mm3 High WBC 11.8 LAB L100.1200 4.2-5.4 M/mm3 Normal RBC 4.41 LAB L100.1300 12.0-15.0 g/dl Normal HGB 13.1 LAB L100.1400 37-47 % Normal HCT 40.2 LAB L100.1500 81-99 fL Normal MCV 91.2 LAB L100.1600 27.0-32.0 pg Normal MCH 29.7 LAB L100.1700 32-36 g/gl Normal MCHC 32.6 LAB L100.1810 11.6-14.6 % High RDW CV 14.8 LAB L100.1820 35.1-43.9 fl High RDW SD 48.9 LAB L100.1900 150-450 K/mm3 Normal PLT 290 LAB L100.2000 6.2-12.0 fl Normal MPV 10.8 LAB L100.2100 47-70 % Normal NEUT% 67.7 LAB L100.2200 19-41 % Normal LY% 22.3 LAB L100.2300 0-10 % Normal MONO% 6.5 LAB L100.2400 0-5 % Normal EO% 3.0 LAB L100.2500 0-1 % Normal BASO% 0.3 LAB L100.2550 0.0-0.9 % Normal IM GRAN % 0.200 Result Comment: IG% - Immature Granulocytes (promyelocytes, myelocytes and metamyelocytes) > 1% indicates that a LEFT SHIFT is Present. LAB L100.2620 2.0-7.7 X10 3/uL High Absolute Neut 8.0 LAB L100.2720 0.83-4.51 X10 3/ul Normal Absolute Lymph 2.63 Performed By: #### L100.0100 #### [facility] [address] [place], [place], [id number] BASIC METABOLIC Collected: 10/04/2018 Status: F Source: [place] PROFILE (BMP) 2:00 PM [facility] [place] TYPE CODE TESTS RESULT OUT OF RANGE REFERENCE UNITS LAB L501.0100 74-106 mg/dL High GLU 111 Result Comment: Fasting Glucose result from 100 to 125 mg/dL suggests IMPAIRED HOMEOSTASIS per A.D.A. criteria. Please note revised GLUCOSE reference range effective 2017. LAB L501.1000 7-18 mg/dL High BUN 38 LAB L501.1100 0.55-1.02 mg/dL High CREAT,SERUM 1.42 Result Comment: The validity of the calculated GFR AND GFRAA in patients over 70 years has not been determined. Clinical correlation is essential. LAB L501.1110 >60 mL/min Low EST GFR 38 Result Comment: Non- GFR Calc LAB L501.1115 >60 mL/min Low EST GFR - AA 46 Result Comment: GFR Calc LAB L501.1255 ml/min Normal Estimated CRCL 25.41 LAB L501.1300 10-20 RATIO High BUN/CRE 26.8 LAB L501.2200 8.5-10 mg/dL Normal .1 CA 9.3 LAB L501.5300 136-14 mmol/L Normal 5 NA 139 LAB L501.5600 3.5-5. mmol/L Normal 1 K 4.5 LAB L501.5900 98-107 mmol/L Normal CL 106 LAB L501.6100 21.0-3 mmol/L Normal 2.0 CO2 25.0 LAB L501.6200 5-15 Normal GAP 8 Performed By: #### L500.2500, L501.4010 #### [facility] [address] [place], [place], [id number] TROPONIN-I Collected: 10/04/2018 Status: F Source: [place] 2:00 PM [facility] [place] TYPE CODE TESTS RESULT OUT OF RANGE REFERENCE UNITS LAB L501.4010 <0.045 ng/mL Normal < 0.015 TROPONIN-I Result Comment: TROPONIN-I EXPECTED VALUES <0.045 Negative 0.045 - 0.590 Consistent with Cardiac Damage > OR = 0.600 Critical Value Not every elevated troponin is indicative of SD. These values should be used with clinical judgement in examining the patient's clinical picture for diagnosis. To establish a diagnosis of SD versus myocardial injury, there must be a demonstrated rise and/or fall in the troponin values, in addition to ischemic symptoms, EKG changes, new regional wall motion abnormality, and/or angiographical evidence. PLEASE NOTE: REFERENCE RANGES EDITED 18 Performed By: #### L500.2500, L501.4010 #### [facility] [address] [place], [place], [address] MAGNESIUM Collected: 10/04/2018 Status: F Source: [place] 2:00 PM [facility] TYPE CODE TESTS RESULT OUT OF RANGE REFERENCE UNITS LAB L501.5200 1.6-2.6 mg/dL Normal MG 2.2 Performed By: #### L501.5200, L501.9520, L506.0400 #### [facility] [address] [place], [address] THYROID STIM HORMONE Collected: 10/04/2018 Status: F Source: [place] (TSH) 2:00 PM [facility] TYPE CODE TESTS RESULT OUT OF RANGE REFERENCE UNITS LAB L501.9520 0.358-3.74 uIU/mL Normal TSH 2.04 Performed By: #### L501.5200, L501.9520, L506.0400 #### [facility] [address] [place], [address] T4 FREE DIRECT Collected: 10/04/2018 Status: F Source: [place] 2:00 PM [facility] TYPE CODE TESTS RESULT OUT OF REFERENCE UNITS RANGE LAB L506.0400 0.76-1.46 ng/dL High T4 FREE 1.75 DIRECT Performed By: #### L501.5200, L501.9520, L506.0400 #### [facility] [address] [place], [address] CBC W/DIFF, AUTOMATED Collected: 10/02/2018 Status: F Source: [place] 12:00 PM [facility] TYPE CODE TESTS RESULT OUT OF RANGE REFERENCE UNITS LAB L100.1000 4.4-11.0 K/mm3 High WBC 12.0 LAB L100.1200 4.2-5.4 M/mm3 Low RBC 3.99 LAB L100.1300 12.0-15.0 g/dl Normal HGB 12.1 LAB L100.1400 37-47 % Low HCT 36.5 LAB L100.1500 81-99 fL Normal MCV 91.5 LAB L100.1600 27.0-32.0 pg Normal MCH 30.3 LAB L100.1700 32-36 g/gl Normal MCHC 33.2 LAB L100.1810 11.6-14.6 % Normal RDW CV 14.4 LAB L100.1820 35.1-43.9 fl High RDW SD 47.1 LAB L100.1900 150-450 K/mm3 Normal PLT 269 LAB L100.2000 6.2-12.0 fl Normal MPV 11.0 LAB L100.2100 47-70 % High NEUT% 73.1 LAB L100.2200 19-41 % Low LY% 17.6 LAB L100.2300 0-10 % Normal MONO% 6.3 LAB L100.2400 0-5 % Normal EO% 2.6 LAB L100.2500 0-1 % Normal BASO% 0.3 LAB L100.2550 0.0-0.9 % Normal IM GRAN % 0.100 Result Comment: IG% - Immature Granulocytes (promyelocytes, myelocytes and metamyelocytes) > 1% indicates that a LEFT SHIFT is Present. LAB L100.2620 2.0-7.7 X10 3/uL High Absolute Neut 8.8 LAB L100.2720 0.83-4.51 X10 3/ul Normal Absolute Lymph 2.11 Performed By: #### L100.0100 #### [facility] [address] [place], [address] BASIC METABOLIC Collected: 10/02/2018 Status: F Source: [place] PROFILE (BMP) 12:00 PM [facility] [place] TYPE CODE TESTS RESULT OUT OF RANGE REFERENCE UNITS LAB L501.0100 74-106 mg/dL High GLU 139 Result Comment: Fasting Glucose result greater than or equal to 126 mg/dL suggests DIABETES MELLITUS per A.D.A. criteria. Please note revised GLUCOSE reference range effective 2017. LAB L501.1000 7-18 mg/dL High BUN 38 LAB L501.1100 0.55-1.02 mg/dL High CREAT,SERUM 1.41 Result Comment: The validity of the calculated GFR AND GFRAA in patients over 70 years has not been determined. Clinical correlation is essential. LAB L501.1110 >60 mL/min Low EST GFR 38 Result Comment: Non- GFR Calc LAB L501.1115 >60 mL/min Low EST GFR - AA 46 Result Comment: GFR Calc LAB L501.1255 ml/min Normal Estimated CRCL 25.59 LAB L501.1300 10-20 RATIO High BUN/CRE 27.0 LAB L501.2200 8.5-10 mg/dL Normal .1 CA 8.8 LAB L501.5300 136-14 mmol/L Low 5 NA 135 LAB L501.5600 3.5-5. mmol/L Normal 1 K 4.7 LAB L501.5900 98-107 mmol/L Normal CL 103 LAB L501.6100 21.0-3 mmol/L Normal 2.0 CO2 24.0 LAB L501.6200 5-15 Normal GAP 8 Performed By: #### L500.2500 #### [facility] [address] [facility] [place], [address] PROTHROMBIN TIME W/INR Collected: 10/02/2018 Status: F Source: [place] 12:00 PM [facility] TYPE CODE TESTS RESULT OUT OF RANGE REFERENCE UNITS LAB L300.4150 11.7-14.9 SECONDS High PROTIME 28.6 LAB L300.4200 Normal INR 2.7 Performed By: #### L300.3900, L300.4310 #### [facility] [address] [place], [address] PARTIAL THROMBOPLAST Collected: 10/02/2018 Status: F Source: [place] TIME 12:00 PM [facility] TYPE CODE TESTS RESULT OUT OF REFERENCE UNITS RANGE LAB L300.4310 24.1-36.2 Seconds High PTT 44.3 Performed By: #### L300.3900, L300.4310 #### [facility] [address] [facility] [place], [address] BNP,B-TYPE NATRIURETIC Collected: 10/02/2018 Status: F Source: [place] PEPTIDE 12:00 PM [facility] TYPE CODE TESTS RESULT OUT OF RANGE REFERENCE UNITS LAB L503.6620 0-100 pg/mL High B-TYPE 507.6 HARRISON PEP Performed By: #### L503.6620 #### [facility] [address] [facility] [place], [address] CHEST PA AND LATERAL Observed: 10/02/2018 Status: F Source: [place] 11:50 AM [facility] Imaging Services [address] [place] [address] Chest PA and Lateral MR#: [id number] Acct: [id number] Name: REY GUY Rep #: [id number] : 1940 F 78 From: Rigoberto Rey MD PCP: Marcelino Kerr DO Status: REG ER Study: Chest PA and Lateral Date of Exam: 10/02/18 Exam# [id number] Ordering Dr: Mann Walker DO STUDY: X-RAY CHEST REASON FOR EXAM: Female, 78 years old. Shortness of breath for several weeks TECHNIQUE: PA and lateral views of the chest. COMPARISON: 05/24/2018 FINDINGS: EKG leads overlie the chest Lungs are expanded with superimposed interstitial edema and bilateral pleural effusions. Findings suggest CHF. Follow-up recommended to assure resolution. There is no demonstrated pleural abnormality. Normal size heart. Normal mediastinum and jamila. Normal visualized pulmonary arteries. There is atherosclerotic calcification of the aortic arch with tortuosity. There are diffuse degenerative changes of the visualized thoracic spine. Normal visualized ribs, clavicles, and shoulders. There is no demonstrated abnormality of the visualized soft tissue structures of the upper abdomen. RAD/Chest PA and Lateral IMPRESSION: Diffuse interstitial edema with bilateral pleural effusions. Follow-up recommended to assure resolution Electronically Signed: Anthony Rey MD at 12:57 EST , Service support , CC: Mann Walker DO; Marcelino Kerr DO Senior Formulation Scientist: Signed PROGRESS Observed: 10/02/2018 Status: COMPLETED Source: [place] 11:19 AM [facility] REPOSITORY HNO ID: [id number] Author: Riky Guerrero) Sruthi Service: (none) Author Type: Physician Scale Expert Type: Progress Notes Filed: 10/02/2018 11:26 AM Note Text: Subjective HPI Patient presents with shortness of breath and fatigue over the past month. She is also had increased peripheral edema. States she gets very short of breath with a few steps. She really hasn't been coughing, she states she clears her throat in the mornings but really isn't coughing throughout the day. She does have a history of A. fib, diabetes, chronic kidney disease. She denies any chest pain. She has had worsening shortness of breath on exertion. She checked her blood sugar this morning and it was 250 even though she hadn't eaten since the night before. She states that is high for her. Review of Systems Constitutional: Positive for malaise/fatigue. HENT: Negative. Eyes: Negative. Respiratory: Positive for shortness of breath. Negative for cough, hemoptysis, sputum production and wheezing. Cardiovascular: Negative. Gastrointestinal: Negative for abdominal pain, blood in stool, melena, nausea and vomiting. Skin: Negative. All other systems reviewed and are negative. BP 168/70 Pulse (!) 50 Temp 36.2 ?C (97.1 ?F) (Tympanic) Resp 16 Wt 96.2 kg (212 lb) SpO2 94% BMI 38.78 kg/m? 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 Ortez Air Surveillance Operator [facility] - Diverticulosis of colon (without mention of hemorrhage) - Endometrial polyp 08/2013 - Gout, unspecified - Hyperlipidemia - Hypertension - Internal hemorrhoids without mention of complication - Iron deficiency anemia, unspecified - Obesity, unspecified - AJIT (obstructive sleep apnea) non-compliant with CPAP - Other chronic nonalcoholic liver disease - Stasis dermatitis - Type II or unspecified type diabetes mellitus without mention of complication, not stated as uncontrolled - Vitamin D deficiency Current Outpatient Prescriptions: albuterol HFA (PROVENTIL HFA, VENTOLIN HFA) 90 mcg/actuation inhaler Inhale 2 Puffs as instructed every 4 hours as needed for Wheezing/Shortness of Breath. Disp: 1 Inhaler Rfl: 11 allopurinol (ZYLOPRIM) 300 mg tablet take 1 tablet by mouth once daily Disp: 30 tablet Rfl: 11 amLODIPine (NORVASC) 10 mg tablet take 1 tablet by mouth once daily Disp: 90 tablet Rfl: 3 ASPIRIN 81 MG TAB Take one (1) tablet daily . Disp: Rfl: 0 BD INSULIN PEN NEEDLE UF 31 gauge x 5/16 ndle USE WITH INSULIN four times a day Disp: 100 Each Rfl: 0 BD INSULIN PEN NEEDLE UF 31 gauge x 5/16 ndle USE WITH INSULIN four times a day Disp: 100 Each Rfl: 5 benzonatate (TESSALON PERLE) 100 mg capsule Take 1 capsule by mouth three times daily as needed. Disp: 30 capsule Rfl: 0 blood sugar diagnostic (ONETOUCH ULTRA TEST) test strip check blood sugars 4 times daily Disp: 150 Strip Rfl: 11 CENTRUM 27 MG-0.4 MG TAB Take one(1) tablet daily. Disp: Rfl: 0 cholecalciferol(VITAMIN D 1,000 UNIT TAB) Takes 2 daily Disp: Rfl: 0 cloNIDine TTS (CATAPRES-TTS) 0.3 mg/24 hr apply 1 patch every week as directed Disp: 4 Patch Rfl: 1 flecainide (TAMBOCOR) 50 mg tablet take 1 tablet by mouth once daily Disp: 30 tablet Rfl: 11 FOLIC ACID 1MG TABLET Take one (1) tablet daily. Disp: Rfl: 0 furosemide (LASIX) 40 mg tablet Take 1 tablet by mouth twice daily. Disp: 180 tablet Rfl: 3 insulin lispro (HUMALOG KWIKPEN INSULIN) 100 unit/mL inpn INJECT 10 UNITS SUBCUTANEOUSLY WITH BREAKFAST, 10 UNITS WITH LUNCH AND 10 UNITS WITH DINNER Disp: 15 mL Rfl: 11 LANTUS SOLOSTAR U-100 INSULIN 100 unit/mL (3 mL) inpn INJECT 27 UNITS SUBCUTANEOUSLY ONCE DAILY AT BEDTIME Disp: 15 mL Rfl: 3 levothyroxine (SYNTHROID) 200 mcg tablet take 1 tablet by mouth once daily Disp: 90 tablet Rfl: 0 liraglutide (VICTOZA 2-PHYLICIA) 0.6 mg/0.1 mL (18 mg/3 mL) pnij Inject 0.6 mg daily via pen Indications: TYPE 2 DIABETES MELLITUS Disp: 2 Pen Rfl: 0 metoprolol succinate ER (TOPROL XL) 100 mg Tb24 Take 1 tablet by mouth once daily. Disp: 90 tablet Rfl: 3 pravastatin (PRAVACHOL) 40 mg tablet take 1 tablet by mouth once daily Disp: 90 tablet Rfl: 3 spironolactone (ALDACTONE) 25 mg tablet take 1/2 tablet by mouth once daily Disp: 45 tablet Rfl: 0 warfarin (COUMADIN) 4 mg tablet take 1 and 1/2 tablets by mouth once daily (OR DIRECTED) Disp: 90 tablet Rfl: 3 warfarin (COUMADIN) 5 mg tablet HOLD Disp: 30 tablet Rfl: 12 Insulin Lispro, Human, (HUMALOG KWIKPEN) 100 unit/mL inpn use 5 units with breakfast, 7 units with lunch and 10 units with supper Disp: 5 Pen Rfl: 11 No current facility-administered medications for this visit. PAST SURGICAL HISTORY Procedure Laterality Date - COLONOSCOP W/ OR W/O [facility] SPEC 08/21/05 Colonoscopy - HYSTEROSCOPY 08/05/13 removal polyps - LIGATE FALLOPIAN TUBE Tubal ligation - LIVER BIOPSY, NEEDLE 08/05/01 - REM LESION TRUNK,ARM, LEG <0.5 CM 04/06/07 Exc. finesse cyst x 2 back - REMV 2ND CATARACT,CORN-SCLER SECTN Cataract removal - REMV CATARACT EXTRACAP,INSERT LENS Cataract Removal FAMILY HISTORY Problem Relation Age of Onset - other (CIRRHOSIS) Mother NON-ETOH - Coronary Artery Disease Father SD - Heart Brother - other (kidney) Brother rec'd kidney - other (varicous veins) Sister resolved - other (varicous veins) Sister blood clots, resolved - other (kidney) Sister kidney stones - other (liver) Sister fatty liver - Cancer Brother leukemia - Cancer Brother pancreatic - Cancer Son d. lymphoma Social History Substance Use Topics - Smoking status: Never Smoker - Smokeless tobacco: Never Used - Alcohol use No Objective Physical Exam Constitutional: She is oriented to person, place, and time and well-developed, well-nourished, and in no distress. HENT: Head: Normocephalic and atraumatic. Right Ear: Tympanic membrane, external ear and ear canal normal. Left Ear: Tympanic membrane, external ear and ear canal normal. Nose: Nose normal. Mouth/Throat: Uvula is midline, oropharynx is clear and moist and mucous membranes are normal. Neck: Normal range of motion. Neck supple. Cardiovascular: Regular rhythm and normal heart sounds. Pt bradycardic at 46 bpm. Regular rhythm Pulmonary/Chest: Effort normal and breath sounds normal. No respiratory distress. She has no wheezes. She has no rales. Musculoskeletal: 2 + pitting edema lower extremities. Neurological: She is alert and oriented to person, place, and time. Skin: Skin is warm and dry. Psychiatric: Affect and judgment normal. Nursing note and vitals reviewed. ASSESSMENT/PLAN: 1. SOB (shortness of breath) - ICD9: 786.05, ICD10: R06.02 (primary diagnosis) Pt pulse ox here 93% on recheck and heart rate 46 bpm. She is not coughing and not fevers ot suggest infectious cause of SOB. I recommended patient go to the ED to have a more complete work up. Pt comfortable going over there herself, no in distress here. Her drove her. Report called to ED attended at [facility]. 2. Bradycardia - ICD9: 427.89, ICD10: R00.1 Riky Bell PA-C CNOV Observed: 10/02/2018 Status: COMPLETED Source: [place] 10:45 AM [facility] REPOSITORY Office Visit (WSTR) REY GUY ([id number]) 1940 F NFR Date Time Provider Department 10/02/18 10:45 AM RIKY BELL (TRISHA) WS During your visit today, we recorded the following information about you: Temperature Pulse Respiration Blood pressure 97.1 degrees 50/minute 16/minute 168/70 Weight 96.2 kg Riky Bell PA-C 10/02/2018 11:26 AM Signed Subjective HPI Patient presents with shortness of breath and fatigue over the past month. She is also had increased peripheral edema. States she gets very short of breath with a few steps. She really hasn't been coughing, she states she clears her throat in the mornings but really isn't coughing throughout the day. She does have a history of A. fib, diabetes, chronic kidney disease. She denies any chest pain. She has had worsening shortness of breath on exertion. She checked her blood sugar this morning and it was 250 even though she hadn't eaten since the night before. She states that is high for her. Review of Systems Constitutional: Positive for malaise/fatigue. HENT: Negative. Eyes: Negative. Respiratory: Positive for shortness of breath. Negative for cough, hemoptysis, sputum production and wheezing. Cardiovascular: Negative. Gastrointestinal: Negative for abdominal pain, blood in stool, melena, nausea and vomiting. Skin: Negative. All other systems reviewed and are negative. BP 168/70 Pulse (!) 50 Temp 36.2 ?C (97.1 ?F) (Tympanic) Resp 16 Wt 96.2 kg (212 lb) SpO2 94% BMI 38.78 kg/m? 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 Ortez [employer] [facility] - Diverticulosis of colon (without mention of hemorrhage) - Endometrial polyp 08/2013 - Gout, unspecified - Hyperlipidemia - Hypertension - Internal hemorrhoids without mention of complication - Iron deficiency anemia, unspecified - Obesity, unspecified - AJIT (obstructive sleep apnea) non-compliant with CPAP - Other chronic nonalcoholic liver disease - Stasis dermatitis - Type II or unspecified type diabetes mellitus without mention of complication, not stated as uncontrolled - Vitamin D deficiency Current Outpatient Prescriptions: albuterol HFA (PROVENTIL HFA, VENTOLIN HFA) 90 mcg/actuation inhaler Inhale 2 Puffs as instructed every 4 hours as needed for Wheezing/Shortness of Breath. Disp: 1 Inhaler Rfl: 11 allopurinol (ZYLOPRIM) 300 mg tablet take 1 tablet by mouth once daily Disp: 30 tablet Rfl: 11 amLODIPine (NORVASC) 10 mg tablet take 1 tablet by mouth once daily Disp: 90 tablet Rfl: 3 ASPIRIN 81 MG TAB Take one (1) tablet daily . Disp: Rfl: 0 BD INSULIN PEN NEEDLE UF 31 gauge x 5/16 ndle USE WITH INSULIN four times a day Disp: 100 Each Rfl: 0 BD INSULIN PEN NEEDLE UF 31 gauge x 5/16 ndle USE WITH INSULIN four times a day Disp: 100 Each Rfl: 5 benzonatate (TESSALON PERLE) 100 mg capsule Take 1 capsule by mouth three times daily as needed. Disp: 30 capsule Rfl: 0 blood sugar diagnostic (ONETOUCH ULTRA TEST) test strip check blood sugars 4 times daily Disp: 150 Strip Rfl: 11 CENTRUM 27 MG-0.4 MG TAB Take one(1) tablet daily. Disp: Rfl: 0 cholecalciferol(VITAMIN D 1,000 UNIT TAB) Takes 2 daily Disp: Rfl: 0 cloNIDine TTS (CATAPRES-TTS) 0.3 mg/24 hr apply 1 patch every week as directed Disp: 4 Patch Rfl: 1 flecainide (TAMBOCOR) 50 mg tablet take 1 tablet by mouth once daily Disp: 30 tablet Rfl: 11 FOLIC ACID 1MG TABLET Take one (1) tablet daily. Disp: Rfl: 0 furosemide (LASIX) 40 mg tablet Take 1 tablet by mouth twice daily. Disp: 180 tablet Rfl: 3 insulin lispro (HUMALOG KWIKPEN INSULIN) 100 unit/mL inpn INJECT 10 UNITS SUBCUTANEOUSLY WITH BREAKFAST, 10 UNITS WITH LUNCH AND 10 UNITS WITH DINNER Disp: 15 mL Rfl: 11 LANTUS SOLOSTAR U-100 INSULIN 100 unit/mL (3 mL) inpn INJECT 27 UNITS SUBCUTANEOUSLY ONCE DAILY AT BEDTIME Disp: 15 mL Rfl: 3 levothyroxine (SYNTHROID) 200 mcg tablet take 1 tablet by mouth once daily Disp: 90 tablet Rfl: 0 liraglutide (VICTOZA 2-PHYLICIA) 0.6 mg/0.1 mL (18 mg/3 mL) pnij Inject 0.6 mg daily via pen Indications: TYPE 2 DIABETES MELLITUS Disp: 2 Pen Rfl: 0 metoprolol succinate ER (TOPROL XL) 100 mg Tb24 Take 1 tablet by mouth once daily. Disp: 90 tablet Rfl: 3 pravastatin (PRAVACHOL) 40 mg tablet take 1 tablet by mouth once daily Disp: 90 tablet Rfl: 3 spironolactone (ALDACTONE) 25 mg tablet take 1/2 tablet by mouth once daily Disp: 45 tablet Rfl: 0 warfarin (COUMADIN) 4 mg tablet take 1 and 1/2 tablets by mouth once daily (OR DIRECTED) Disp: 90 tablet Rfl: 3 warfarin (COUMADIN) 5 mg tablet HOLD Disp: 30 tablet Rfl: 12 Insulin Lispro, Human, (HUMALOG KWIKPEN) 100 unit/mL inpn use 5 units with breakfast, 7 units with lunch and 10 units with supper Disp: 5 Pen Rfl: 11 No current facility-administered medications for this visit. PAST SURGICAL HISTORY Procedure Laterality Date - COLONOSCOP W/ OR W/O [facility] SPEC 08/21/05 Colonoscopy - HYSTEROSCOPY 08/05/13 removal polyps - LIGATE FALLOPIAN TUBE Tubal ligation - LIVER BIOPSY, NEEDLE 08/05/01 - REM LESION TRUNK,ARM, LEG <0.5 CM 04/06/07 Exc. finesse cyst x 2 back - REMV 2ND CATARACT,CORN-SCLER SECTN Cataract removal - REMV CATARACT EXTRACAP,INSERT LENS Cataract Removal FAMILY HISTORY Problem Relation Age of Onset - other (CIRRHOSIS) Mother NON-ETOH - Coronary Artery Disease Father SD - Heart Brother - other (kidney) Brother rec'd kidney - other (varicous veins) Sister resolved - other (varicous veins) Sister blood clots, resolved - other (kidney) Sister kidney stones - other (liver) Sister fatty liver - Cancer Brother leukemia - Cancer Brother pancreatic - Cancer Son d. lymphoma Social History Substance Use Topics - Smoking status: Never Smoker - Smokeless tobacco: Never Used - Alcohol use No Objective Physical Exam Constitutional: She is oriented to person, place, and time and well-developed, well-nourished, and in no distress. HENT: Head: Normocephalic and atraumatic. Right Ear: Tympanic membrane, external ear and ear canal normal. Left Ear: Tympanic membrane, external ear and ear canal normal. Nose: Nose normal. Mouth/Throat: Uvula is midline, oropharynx is clear and moist and mucous membranes are normal. Neck: Normal range of motion. Neck supple. Cardiovascular: Regular rhythm and normal heart sounds. Pt bradycardic at 46 bpm. Regular rhythm Pulmonary/Chest: Effort normal and breath sounds normal. No respiratory distress. She has no wheezes. She has no rales. Musculoskeletal: 2 + pitting edema lower extremities. Neurological: She is alert and oriented to person, place, and time. Skin: Skin is warm and dry. Psychiatric: Affect and judgment normal. Nursing note and vitals reviewed. ASSESSMENT/PLAN: 1. SOB (shortness of breath) - ICD9: 786.05, ICD10: R06.02 (primary diagnosis) Pt pulse ox here 93% on recheck and heart rate 46 bpm. She is not coughing and not fevers ot suggest infectious cause of SOB. I recommended patient go to the ED to have a more complete work up. Pt comfortable going over there herself, no in distress here. Her drove her. Report called to ED attended at [facility]. 2. Bradycardia - ICD9: 427.89, ICD10: R00.1 Riky Bell PA-C Referring Provider: SELF [[id number]] Allergies As of Date: 10/02/2018 Noted Allergy Reaction HERBAL DRUGS 08/31/2004 VASOTEC (ENALAPRIL MALEATE) 07/26/2005 Comments: coughing ZOCOR (SIMVASTATIN) 08/31/2004 Comments: increase of liver enzymes Date Reviewed: 10/02/2018 Reviewed by: Maricruz Caba LPN - Fully Assessed Reason for Visit: CHERRY, wheezing, lethargy, chest congestion and SOB [Other] Cmt: x 1 month Primary Visit Diagnosis:SOB (shortness of breath) [R06.02] Other Visit Diagnoses:Bradycardia [R00.1] Fatigue, unspecified type [R53.83] Prescriptions as of 10/02/2018 Sig: ALBUTEROL SULFATE HFA 90 MCG/* Inhale 2 Puffs as instructed * ALLOPURINOL 300 MG TABLET take 1 tablet by mouth once d* AMLODIPINE 10 MG TABLET take 1 tablet by mouth once d* ASPIRIN 81 MG TABLET Take one (1) tablet daily . BD ULTRA-FINE SHORT PEN NEEDL* USE WITH INSULIN four times a* BD ULTRA-FINE SHORT PEN NEEDL* USE WITH INSULIN four times a* BENZONATATE 100 MG CAPSULE Take 1 capsule by mouth three* BLOOD SUGAR DIAGNOSTIC STRIPS check blood sugars 4 times d* CENTRUM 0.4 MG-162 MG-18 MG T* Take one(1) tablet daily. VITAMIN D3 1,000 UNIT TABLET Takes 2 daily CLONIDINE 0.3 MG/24 HR WEEKLY* apply 1 patch every week as d* FLECAINIDE 50 MG TABLET take 1 tablet by mouth once d* FOLIC ACID 1 MG TABLET Take one (1) tablet daily. FUROSEMIDE 40 MG TABLET Take 1 tablet by mouth twice * INSULIN LISPRO (U-100) 100 UN* INJECT 10 UNITS SUBCUTANEOUSL* LANTUS SOLOSTAR U-100 INSULIN* INJECT 27 UNITS SUBCUTANEOUSL* LEVOTHYROXINE 200 MCG TABLET take 1 tablet by mouth once d* LIRAGLUTIDE 0.6 MG/0.1 ML (18* Inject 0.6 mg daily via pen * METOPROLOL SUCCINATE ER 100 M* Take 1 tablet by mouth once d* PRAVASTATIN 40 MG TABLET take 1 tablet by mouth once d* SPIRONOLACTONE 25 MG TABLET take 1/2 tablet by mouth once* WARFARIN 4 MG TABLET take 1 and 1/2 tablets by jaylene* WARFARIN 5 MG TABLET HOLD INSULIN LISPRO (U-100) 100 UN* use 5 units with breakfast, 7* Problem List As Of Date 10/02/2018 Noted Resolved IRON DEFIC ANEMIA NOS [D50.9] 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 Fatty liver [K76.0] INVALID FOR* CKD (chronic kidney disease) stage 3, GFR 30-59*INVALID FOR* Edema [R60.9] INVALID FOR* Stasis dermatitis [I87.2] INVALID FOR* Carotid stenosis [I65.29] More... CKD (chronic kidney disease), stage III [N18.3] 01/09/2018 More... Encounter Status:Closed by RIKY BELL PA-C on 10/02/18 PROGRESS Observed: 09/02/2018 Status: COMPLETED Source: [place] 10:14 AM [facility] REPOSITORY HNO ID: [id number] Author: Shantelle Cifuentes Service: (none) Author Type: Nurse Practitioner Type: Progress Notes Filed: 09/02/2018 11:57 AM Note Text: Agree with recommendations. Shantelle Cifuentes APRN.CNP PROGRESS Observed: 09/02/2018 Status: COMPLETED Source: [place] 10:10 AM [facility] REPOSITORY HNO ID: [id number] Author: Digna Segovia RN Service: (none) Author Type: (none) Type: Progress Notes Filed: 09/02/2018 10:11 AM Note Text: patient had inr completed at [facility] patients inr is 2.7 (patients inr range is 2.0-3.0) patient is currently taking 6mg Mon,Tues,Wed, and 4mg all other days patients last dose change was on 05/13/18 due to a low level of 1.8 (dose at that time was 6mg Tues,Wed and 4mg all other days) patient has had no changes in medication and no missed doses and no change in diet Advised patient to continue on the same dose(s) and that they would only be contacted regarding dosage and follow up instructions after review with provider, if a change is needed. Written instructions given and patient verbalized understanding. Presently scheduled in 5 weeks (10/07/18 - due to the holiday in 4 weeks) for follow up INR. PROGRESS Observed: 08/20/2018 Status: COMPLETED Source: [place] 9:14 AM [facility] REPOSITORY HNO ID: [id number] Author: Shantelle Cifuentes Service: (none) Author Type: Nurse Practitioner Type: Progress Notes Filed: 08/20/2018 12:01 PM Note Text: Agree with recommendations. erythromycin PROGRESS Observed: 08/19/2018 Status: COMPLETED Source: [place] 2:43 PM [facility] REPOSITORY HNO ID: [id number] Author: Digna Segovia RN Service: (none) Author Type: (none) Type: Progress Notes Filed: 08/19/2018 2:45 PM Note Text: patient had inr completed at [facility] patients inr is 2.0 (patients inr range is 2.0-3.0) patient is currently taking 6mg Mon,Tues,Wed and 4mg all other days patients last dose change was on 05/13/18 due to a low level of 1.8 (dose at that time was 6mg Tues,Wed and 4mg all other days) patient has had no changes in medication and no uninstructed missed doses and no change in diet Advised patient to continue on the same dose(s) and that they would only be contacted regarding dosage and follow up instructions after review with provider, if a change is needed. Written instructions given and patient verbalized understanding. Presently scheduled in 2 weeks (09/02/18) for follow up INR since last weeks check was high. PROGRESS Observed: 08/09/2018 Status: COMPLETED Source: [place] 3:16 PM [facility] REPOSITORY HNO ID: [id number] Author: Davian Suresh (Rn) Service: (none) Author Type: Registered Nurse Type: Progress Notes Filed: 08/09/2018 4:46 PM Note Text: PRIMARY CARE COORDINATION FOLLOW-UP NOTE Provider Action/FYI Tct Pt left a vm related to [facility] Maintenance due and Pt status Patient identified by name and date of . YES Signature Kerwin Marcelo RN August 09, 2018 CNPTOUTREACH Observed: 08/09/2018 Status: COMPLETED Source: [place] 12:00 AM [facility] REPOSITORY Patient Outreach (FAMPWS) REY GUY ([id number]) 1940 F NFR Date Time Provider Department 08/09/18 DAVIAN SURESH (RN) FAMPWS During your visit today, we recorded the following information about you: Kerwin Marcelo RN 08/09/2018 4:46 PM Signed PRIMARY CARE COORDINATION FOLLOW-UP NOTE Provider Action/FYI Tct Pt left a vm related to [facility] Maintenance due and Pt status Patient identified by name and date of . 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 Chronic Care [1272] Cmt: [facility] Maintenance Reason For Visit History Recorded Prescriptions as of 08/09/2018 Sig: ALLOPURINOL 300 MG TABLET take 1 tablet by mouth once d* CLONIDINE 0.3 MG/24 HR WEEKLY* apply 1 patch every week as d* AMLODIPINE 10 MG TABLET take 1 tablet by mouth once d* BD ULTRA-FINE SHORT PEN NEEDL* USE WITH INSULIN four times a* LEVOTHYROXINE 200 MCG TABLET take 1 tablet by mouth once d* INSULIN LISPRO (U-100) 100 UN* INJECT 10 UNITS SUBCUTANEOUSL* WARFARIN 4 MG TABLET Take 1.5 tablets by mouth onc* BENZONATATE 100 MG CAPSULE Take 1 capsule by mouth three* ALBUTEROL SULFATE HFA 90 MCG/* Inhale 2 Puffs as instructed * BD ULTRA-FINE SHORT PEN NEEDL* USE WITH INSULIN four times a* FLECAINIDE 50 MG TABLET take 1 tablet by mouth once d* LANTUS SOLOSTAR U-100 INSULIN* inject 27 units subcutaneousl* PRAVASTATIN 40 MG TABLET Take 1 tablet by mouth once d* SPIRONOLACTONE 25 MG TABLET take 1/2 tablet by mouth once* LIRAGLUTIDE 0.6 MG/0.1 ML (18* Inject 0.6 mg daily via pen * METOPROLOL SUCCINATE ER 100 M* take 1 tablet by mouth once d* BLOOD SUGAR DIAGNOSTIC STRIPS check blood sugars 4 times d* WARFARIN 5 MG TABLET HOLD INSULIN LISPRO (U-100) 100 UN* use 5 units with breakfast, 7* FUROSEMIDE 40 MG TABLET Take 1 tablet by mouth twice * VITAMIN D3 1,000 UNIT TABLET Takes 2 daily CENTRUM 0.4 MG-162 MG-18 MG T* Take one(1) tablet daily. ASPIRIN 81 MG TABLET Take one (1) tablet daily . FOLIC ACID 1 MG TABLET Take one (1) tablet daily. 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 Fatty liver [K76.0] INVALID FOR* CKD (chronic kidney disease) stage 3, GFR 30-59*INVALID FOR* Edema [R60.9] INVALID FOR* Stasis dermatitis [I87.2] INVALID FOR* Carotid stenosis [I65.29] More... CKD (chronic kidney disease), stage III [N18.3] 01/09/2018 More... Encounter Status:Closed by KERWIN MARCELO on 08/09/18 PROGRESS Observed: 08/08/2018 Status: COMPLETED Source: [place] 1:33 PM [facility] REPOSITORY HNO ID: [id number] Author: Allison Wick LPN Service: (none) Author Type: (none) Type: Progress Notes Filed: 08/08/2018 1:35 PM Note Text: Phoned patient and went over coumadin instructions from Shantelle Cifuentes FAMILY EDUCATOR hold tomorrows dose and resume regular schedule 6 mg Mon,Tues, Wed, and 4 mg other days and recheck INR in one week, with understanding. Patient has appt scheduled for one week already. PROGRESS Observed: 08/08/2018 Status: COMPLETED Source: [place] 12:21 PM [facility] REPOSITORY HNO ID: [id number] Author: Shantelle Cifuentes Service: (none) Author Type: Nurse Practitioner Type: Progress Notes Filed: 08/08/2018 12:23 PM Note Text: Hold tomorrows dose and resume regular dosing. Next INR 1 week. Shantelle Cifuentes APRN.CNP PROGRESS Observed: 08/08/2018 Status: COMPLETED Source: [place] 11:13 AM [facility] REPOSITORY HNO ID: [id number] Author: Digna Segovia RN Service: (none) Author Type: (none) Type: Progress Notes Filed: 08/08/2018 11:15 AM Note Text: patient had inr completed at [facility] patients inr is 3.2 (patients inr range is 2.0-3.0) patient is currently taking 6mg Mon,Tues,Wed and 4mg all other days patients last dose change was on 05/13/18 due to a low level of 1.8 (dose at that time was 6mg Tues,Wed, and 4mg all other day) patient has had no changes in medication and no missed doses and no change in diet Advised patient that they would be contacted regarding medication dose and when to follow up after information is reviewed by provider. After provider review please contact the patient with information and schedule follow up appointment with coumadin clinic. FYI - patient has been scheduled for a 1 week follow up inr on 08/15/18 ALBUMIN/CREAT RATIO Collected: 08/02/2018 Status: F Source: [place] 1:16 PM [facility] REPOSITORY TYPE CODE TESTS RESULT OUT OF REFERENCE UNITS RANGE LAB UCRR 20-300 mg/dL Creatinine,Ur 43.6 ine,Ran LAB UALBR 0.0-23.0 mg/L High Albumin Urine 606.7 Random LAB UALBCR 0-30 mg/g High Albumin/Creat 1392 Ratio Result Comment: 30 to 300 mg/g indicates an increased risk for diabetic nephropathy. Greater than 300 mg/g is consistent with clinical nephropathy. (Am J Kidney Disease 1995, 25:107) Performed By: #### UACR #### [facility] [address] [place] [id number] RENAL FUNCTION PANEL Collected: 08/02/2018 Status: F Source: [place] 1:15 PM [facility] REPOSITORY TYPE CODE TESTS RESULT OUT OF REFERENCE UNITS RANGE LAB ALB 3.9-4.9 g/dL Albumin 3.9 LAB CA 8.5-10.2 mg/dL Calcium, Total 9.3 LAB PHOS 2.7-4.8 mg/dL Phosphorus 4.7 LAB GLU 74-99 mg/dL Glucose High 124 Result Comment: The [place] Diabetes Association (ADA) provides guidance for cutoff values for fasting glucose and random glucose. The ADA defines fasting as no caloric intake for at least 8 hours. Fas ting plasma glucose results between 100 to 125 mg/dL indicate increased risk for diabetes (prediabetes). Fasting plasma glucose results greater than or equal to 126 mg/dL meet the criteria for diagnosis of diabetes. In the absence of unequivocal hyperglycemia, results should be confirmed by repeat testing. In a patient with classic symptoms of hyperglycemia or hyperglycemic crisis, random plasma glucose results greater than or equal to 200 mg/dL meet the criteria for diagnosis of diabetes. Reference: Standards of Medical Care in Diabetes 2016, [place] Diabetes Association. Diabetes Care. 2016.39(Suppl 1). LAB BUN 7-21 mg/dL BUN High 40 LAB CRET 0.58-0.96 mg/dL Creatinine High 1.58 LAB NA 136-144 mmol/L Sodium 137 LAB K 3.7-5.1 mmol/L Potassium 4.7 LAB CL 97-105 mmol/L Chloride 100 LAB CO2 22-30 mmol/L CO2 23 LAB AGAP 9-18 mmol/L Anion Gap 14 LAB GFRAA eGFR- Amer. 38 LAB GFRNAA . eGFR-All Other Races 32 Result Comment: eGFR (Estimated GFR) Units of measure: mL/min/1.73 meters squared eGFR is derived from the reexpressed MDRD Study equation using the following parameters: serum creatinine, age, gender and race. The creatinine assay has been calibrated to be traceable to IDIA. An eGFR <60 mL/min/1.73m2 for >3 months is consistent with chronic kidney disease. Refer to KDOQI guidelines for clinical interpretation. In patients with unstable renal function, e.g. those with acute kidney injury, the eGFR may not accurately reflect actual GFR. Performed By: #### RFP #### [facility] [email or web address] [place], [place] [address] HEMOGLOBIN A1C Collected: 08/02/2018 Status: F Source: [place] 1:15 PM [facility] REPOSITORY TYPE CODE TESTS RESULT OUT OF REFERENCE UNITS RANGE LAB HGBA1C 4.3-5.6 % High Hemoglobin A1c 7.2 LAB HBA0 mg/dL Est. Average Glucose 160 Result Comment: eAG: (Estimated average glucose) is a calculated value from HgbA1c and is auto claim representative of the average blood glucose level in the last 2-3 month period. Performed By: #### HBA1C #### [facility] [address] [place], [place] [address] PROGRESS Observed: 07/15/2018 Status: COMPLETED Source: [place] 1:29 PM [facility] REPOSITORY HNO ID: [id number] Author: Raine Roblesjustin Valiente Service: (none) Author Type: Head Of Mathematics Type: Progress Notes Filed: 07/15/2018 1:29 PM Note Text: Radiology Service Progress Note PATIENT NAME: Rey Guy DATE OF SERVICE: July 15, 2018 TIME: 1:29 PM PATIENT IDENTITY VERIFICATION COMPLETED USING TWO (2) METHODS: Patient confirmed name verbally and Date of . PATIENT GENDER DATA: Female. status: : No status: N/A PATIENT RELEVANT IMPLANT DATA REVIEWED: Not Applicable RADIOLOGY DEPARTMENT: Ultrasound PERIPHERAL IV DATA: Not applicable SIGNED BY: RAINE VALIENTE RDMS Isa July 15, 2018 1:29 PM US KIDNEY/BLADDER Observed: 07/15/2018 Status: F Source: [place] 1:29 PM [facility] REPOSITORY * * *Final Report* * * DATE OF EXAM: Jul 15 2018 1:29PM U 1055 - US KIDNEY/BLADDER / PROCEDURE REASON: CKD (chronic kidney disease) stage 3, GFR 30-59 ml/min ([facility]) * * * * Physician Interpretation * * * * EXAMINATION: RENAL ULTRASOUND CLINICAL HISTORY: Chronic renal disease TECHNIQUE: Sonography of the kidneys and urinary bladder was performed. Images were obtained and stored in a permanent archive. MQ: UR_1 COMPARISON: Right upper quadrant ultrasound dated 07/02/2013 RESULT: Right Kidney: -Renal length: 11.8 cm -Parenchyma: Normal parenchymal echogenicity. Normal parenchymal thickness. -Collecting system: No hydronephrosis. -Calculus: No echogenic, shadowing calculus. -Lesion: None. Left Kidney: -Renal length: 12.8 cm -Parenchyma: Normal parenchymal echogenicity. Normal parenchymal thickness. -Collecting system: No hydronephrosis. -Calculus: No echogenic, shadowing calculus. -Lesion: None. Bladder: Pre and postvoid urinary bladder volumes of 574 cc and 0 cc respectively were recorded. IMPRESSION: Normal renal ultrasound Senior Formulation Scientist: PSCB Transcribe Date/Time: Jul 17 2018 2:24P Dictated by : BOBBI GODDARD MD This examination was interpreted and the report reviewed and electronically signed by: BOBBI GODDARD MD on Jul 17 2018 2:26PM EST [id number] PROGRESS Observed: 07/11/2018 Status: COMPLETED Source: [place] 4:26 PM [facility] REPOSITORY HNO ID: [id number] Author: Lionel Pillai LPN Service: (none) Author Type: (none) Type: Progress Notes Filed: 07/11/2018 4:28 PM Note Text: Discussed /c pt at OV with FAMILY EDUCATOR today. Lionel Pillai LPN CBC AND DIFFERENTIAL Collected: 07/11/2018 Status: F Source: [place] 11:35 AM [facility] REPOSITORY TYPE CODE TESTS RESULT OUT OF REFERENCE UNITS RANGE LAB WBC 3.70-11.00 k/uL WBC High 11.96 LAB RBC 3.90-5.20 m/uL RBC 4.51 LAB HGB 11.5-15.5 g/dL Hemoglobin 13.4 LAB HCT 36.0-46.0 % Hematocrit 42.4 LAB MCV 80.0-100.0 fL MCV 94.0 LAB MCH 26.0-34.0 pG MCH 29.7 LAB MCHC 30.5-36.0 g/dL MCHC 31.6 LAB RDWCV 11.5-15.0 % RDW-CV 14.3 LAB PLTCT 150-400 k/uL Platelet Count 276 LAB MPV 9.0-12.7 fL MPV 12.6 LAB ANEUT % Neut% 66.2 LAB AANEUT 1.45-7.50 k/uL Abs Neut High 7.92 LAB ALYMP % Lymph% 22.2 LAB AALYMP 1.00-4.00 k/uL Abs Lymph 2.66 LAB AMONO % Carolina% 6.4 LAB AAMONO <0.87 k/uL Abs Carolina 0.76 LAB AEOS % Eosin% 4.7 LAB AAEOS <0.46 k/uL Abs High Eosin 0.56 LAB ABASO % Baso% 0.5 LAB AABASO <0.11 k/uL Abs Baso 0.06 LAB AUNRBC 0 /100 WBC NRBCs 0.0 LAB ABNRBC <0.01 k/uL Absolute nRBC <0.01 LAB DTYP DTYPE Auto Diff Performed By: #### CBCDIF, CMP, TSH, HBA1C, VITD #### [facility] [address] [place], [place] [address] COMP METABOLIC PANEL Collected: 07/11/2018 Status: F Source: [place] 11:35 AM [facility] REPOSITORY TYPE CODE TESTS RESULT OUT OF REFERENCE UNITS RANGE LAB TP 6.3-8.0 g/dL Protein, Total 7.5 LAB ALB 3.9-4.9 g/dL Albumin 4.0 LAB CA 8.5-10.2 mg/dL Calcium, Total 9.5 LAB TBIL 0.2-1.3 mg/dL Bilirubin, Total 0.3 LAB ALKP 34-123 U/L Alkaline High Phosphatase 131 LAB AST 13-35 U/L AST 34 LAB GLU 74-99 mg/dL Glucose High 171 Result Comment: The [place] Diabetes Association (ADA) provides guidance for cutoff values for fasting glucose and random glucose. The ADA defines fasting as no caloric intake for at least 8 hours. Fas ting plasma glucose results between 100 to 125 mg/dL indicate increased risk for diabetes (prediabetes). Fasting plasma glucose results greater than or equal to 126 mg/dL meet the criteria for diagnosis of diabetes. In the absence of unequivocal hyperglycemia, results should be confirmed by repeat testing. In a patient with classic symptoms of hyperglycemia or hyperglycemic crisis, random plasma glucose results greater than or equal to 200 mg/dL meet the criteria for diagnosis of diabetes. Reference: Standards of Medical Care in Diabetes 2016, [place] [employer] Association. Diabetes Care. 2016.39(Suppl 1). LAB BUN 7-21 mg/dL BUN High 47 LAB CRET 0.58-0.96 mg/dL Creatinine High 1.50 LAB NA 136-144 mmol/L Low Sodium 135 LAB K 3.7-5.1 mmol/L Potassium 5.1 LAB CL 97-105 mmol/L Low Chloride 96 LAB CO2 22-30 mmol/L CO2 23 LAB AGAP 9-18 mmol/L Anion Gap 16 LAB ALT 7-38 U/L ALT 35 LAB GFRAA eGFR- Amer. 41 LAB GFRNAA . eGFR-All Other Races 33 Result Comment: eGFR (Estimated GFR) Units of measure: mL/min/1.73 meters squared eGFR is derived from the reexpressed MDRD Study equation using the following parameters: serum creatinine, age, gender and race. The creatinine assay has been calibrated to be traceable to IDMS. An eGFR <60 mL/min/1.73m2 for >3 months is consistent with chronic kidney disease. Refer to KDOQI guidelines for clinical interpretation. In patients with unstable renal function, e.g. those with acute kidney injury, the eGFR may not accurately reflect actual GFR. Performed By: #### CBCDIF, CMP, TSH, HBA1C, VITD #### [facility] [address], [place] [address] TSH Collected: 07/11/2018 Status: F Source: [place] 11:35 AM [facility] REPOSITORY TYPE CODE TESTS RESULT OUT OF RANGE REFERENCE UNITS LAB TSH 0.400-5.500 uU/mL TSH 4.180 Performed By: #### CBCDIF, CMP, TSH, HBA1C, VITD #### [place] [id number] [place] [id number] HEMOGLOBIN A1C Collected: 07/11/2018 Status: F Source: [place] 11:35 AM [facility] REPOSITORY TYPE CODE TESTS RESULT OUT OF REFERENCE UNITS RANGE LAB HGBA1C 4.3-5.6 % High Hemoglobin A1c 7.3 LAB HBA0 mg/dL Est. Average Glucose 163 Result Comment: eAG: (Estimated average glucose) is a calculated value from HgbA1c and is auto claim representative of the average blood glucose level in the last 2-3 month period. Performed By: #### CBCDIF, CMP, TSH, HBA1C, VITD #### [facility] [place] [address] VITAMIN D 25 HYDROXY Collected: 07/11/2018 Status: F Source: [place] 11:35 AM [facility] REPOSITORY TYPE CODE TESTS RESULT OUT OF REFERENCE UNITS RANGE LAB VITD 31.0-80.0 ng/mL Vitamin D 25 56.1 Hydroxy Result Comment: Classification of 25 [place] Vitamin D status: Insufficiency/Moderate Deficiency: < or = 30 ng/mL Sufficiency/Optimal Levels: 31 to 80 ng/mL Toxicity: > 100 ng/mL Test performed by chemiluminescent immunoassay. Performed By: #### CBCDIF, CMP, TSH, HBA1C, VITD #### [facility] [place] [id number] PROGRESS Observed: 07/11/2018 Status: COMPLETED Source: [place] 10:58 AM [facility] REPOSITORY HNO ID: [id number] Author: Digna Segovia RN Service: (none) Author Type: (none) Type: Progress Notes Filed: 07/11/2018 10:59 AM Note Text: patient had inr completed at [facility] patients inr is 2.6 (patients inr range is 2.0-3.0) patient is currently taking 6mg mon,Tues,Wed and 4mg all other days patients last dose change was on 05/13/18 due to a low level of 1.8 (dose at that time was 6mg Tues,Wed and 4mg all other days) patient has had no changes in medication and no missed doses and no change in diet Advised patient to continue on the same dose(s) and that they would only be contacted regarding dosage and follow up instructions after review with provider, if a change is needed. Written instructions given and patient verbalized understanding. Presently scheduled in 4 weeks (08/08/18) for follow up INR. PROGRESS Observed: 07/11/2018 Status: COMPLETED Source: [place] 10:54 AM [facility] REPOSITORY O ID: [id number] Author: Shantelle Gonzalez ([facility]) Arsh Service: (none) Author Type: Nurse Practitioner Type: Progress Notes Filed: 07/11/2018 12:08 PM Note Text: HPI/CC: Rey Guy is a 78 year old female who presents for Recheck (6 month follow up). Reports episodes of head discomfort/ sensation for over a year but recently worsening. Patient is unable to describe sensation. Syncopal episode in May. Fell 3 weeks ago, denies hitting head. Has checked BG at time of episodes- usually normal. Did not check BP with episodes. Taking all medications, occasionally wears compression stocking, reports edema daily Sees Dr. Fields will have repeat US. Patient reports Dr. Fields is aware of syncope. Coumadin 6 mg 3 days a week and 4 mg 4 days a week- continue current dose for INR 2.6 today Has not seen neurology. ROS as above, otherwise non-contributory. Reviewed PMHx, PSHx, social Hx, medications and allergies. PHYSICAL EXAMINATION: BP 160/70 Pulse (!) 56 Resp 16 Wt 93.4 kg (206 lb) BMI 37.68 kg/m? General appearance: Well appearing, alert, in no acute distress, well-hydrated, well nourished. and Morbidly obese Skin: Skin color, texture, turgor normal, no suspicious rashes or lesions Head: Normocephalic, no masses, lesions, tenderness or abnormalities Eyes: Anicteric sclera. Pupils are equally round and reactive to light. Extraocular movements are intact. Lungs: Lungs clear to auscultation. No wheezing, rhonchi, rales Heart: RRR without murmur, gallop, or rubs. No ectopy Extremities: Edema: +1-2 non-pitting edema bilaterally ASSESSMENT/PLAN: 1. Syncope, unspecified syncope type - ICD9: 780.2, ICD10: R55 (primary diagnosis) - CONSULT TO NEUROLOGY - TSH BLD - COMP METABOLIC PANEL - CBC + DIFF - HGB A1C 2. Type 2 diabetes mellitus with neurological manifestations, uncontrolled (HCC) - ICD9: 250.62, ICD10: E11.49, E11.65 - COMP METABOLIC PANEL - HGB A1C 3. Hyperlipidemia, unspecified hyperlipidemia type - ICD9: 272.4, ICD10: E78.5 - to be determined upon return of lab results - Continue current medication. 4. Acquired hypothyroidism - ICD9: 244.9, ICD10: E03.9 - check TSH today - TSH BLD 5. Vitamin D deficiency - ICD9: 268.9, ICD10: E55.9 - VITAMIN D 25 HYDROXY 6. CKD (chronic kidney disease) stage 3, GFR 30-59 ml/min (HCC) - ICD9: 585.3, ICD10: N18.3 - COMP METABOLIC PANEL - CBC + DIFF YUN PlataOV Observed: 07/11/2018 Status: COMPLETED Source: [place] 10:40 AM [facility] REPOSITORY Office Visit (FAMPWS) REY GUY ([id number]) 1940 F NFR Date Time Provider Department 07/11/18 10:40 AM SHANTELLE CIFUENTES) [facility] During your visit today, we recorded the following information about you: Pulse Respiration Blood pressure Weight 56/minute 16/minute 160/70 93.4 kg Shantelle Cifuentes APRN.CNP 07/11/2018 12:08 PM Signed HPI/CC: Rey Guy is a 78 year old female who presents for Recheck (6 month follow up). Reports episodes of head discomfort/ sensation for over a year but recently worsening. Patient is unable to describe sensation. Syncopal episode in May. Fell 3 weeks ago, denies hitting head. Has checked BG at time of episodes- usually normal. Did not check BP with episodes. Taking all medications, occasionally wears compression stocking, reports edema daily Sees Dr. Fields will have repeat US. Patient reports Dr. Fields is aware of syncope. Coumadin 6 mg 3 days a week and 4 mg 4 days a week- continue current dose for INR 2.6 today Has not seen neurology. ROS as above, otherwise non-contributory. Reviewed PMHx, PSHx, social Hx, medications and allergies. PHYSICAL EXAMINATION: BP 160/70 Pulse (!) 56 Resp 16 Wt 93.4 kg (206 lb) BMI 37.68 kg/m? General appearance: Well appearing, alert, in no acute distress, well-hydrated, well nourished. and Morbidly obese Skin: Skin color, texture, turgor normal, no suspicious rashes or lesions Head: Normocephalic, no masses, lesions, tenderness or abnormalities Eyes: Anicteric sclera. Pupils are equally round and reactive to light. Extraocular movements are intact. Lungs: Lungs clear to auscultation. No wheezing, rhonchi, rales Heart: RRR without murmur, gallop, or rubs. No ectopy Extremities: Edema: +1-2 non-pitting edema bilaterally ASSESSMENT/PLAN: 1. Syncope, unspecified syncope type - ICD9: 780.2, ICD10: R55 (primary diagnosis) - CONSULT TO NEUROLOGY - TSH BLD - COMP METABOLIC PANEL - CBC + DIFF - HGB A1C 2. Type 2 diabetes mellitus with neurological manifestations, uncontrolled (HCC) - ICD9: 250.62, ICD10: E11.49, E11.65 - COMP METABOLIC PANEL - HGB A1C 3. Hyperlipidemia, unspecified hyperlipidemia type - ICD9: 272.4, ICD10: E78.5 - to be determined upon return of lab results - Continue current medication. 4. Acquired hypothyroidism - ICD9: 244.9, ICD10: E03.9 - check TSH today - TSH BLD 5. Vitamin D deficiency - ICD9: 268.9, ICD10: E55.9 - VITAMIN D 25 HYDROXY 6. CKD (chronic kidney disease) stage 3, GFR 30-59 ml/min (HCC) - ICD9: 585.3, ICD10: N18.3 - COMP METABOLIC PANEL - CBC + DIFF Shantelle Cifuentes APRN.CNP Referring Provider: SHANTELLE CIFUENTES ([facility]) [[id number]] Allergies As of Date: 07/11/2018 Noted Allergy Reaction HERBAL DRUGS 08/31/2004 VASOTEC (ENALAPRIL MALEATE) 07/26/2005 Comments: coughing ZOCOR (SIMVASTATIN) 08/31/2004 Comments: increase of liver enzymes Date Reviewed: 07/11/2018 Reviewed by: Lionel Pillai LPN - Fully Assessed Reason for Visit: Recheck [92] Cmt: 6 month follow up Primary Visit Diagnosis:Syncope, unspecified syncope type [R55] Other Visit Diagnoses:Type 2 diabetes mellitus with neurological manifestations, uncontrolled (HCC) [E11.49, E11.65] Hyperlipidemia, unspecified hyperlipidemia type [E78.5] Acquired hypothyroidism [E03.9] Vitamin D deficiency [E55.9] CKD (chronic kidney disease) stage 3, GFR 30-59 ml/min (HCC) [N18.3] Order(s):CONSULT TO NEUROLOGY [9019] Order #: [id number]: 1 TSH BLD [SQTSH] Order #: [id number] FUTURE COMP METABOLIC PANEL [SQCMP] Order #: [id number] FUTURE CBC + DIFF [SQCBCDIF] Order #: [id number] FUTURE HGB A1C [SOCFK6X] Order #: [id number] FUTURE VITAMIN D 25 HYDROXY [SQVITD] Order #: [id number] FUTURE Prescriptions as of 07/11/2018 Sig: CLONIDINE 0.3 MG/24 HR WEEKLY* apply 1 patch every week as d* AMLODIPINE 10 MG TABLET take 1 tablet by mouth once d* BD ULTRA-FINE SHORT PEN NEEDL* USE WITH INSULIN four times a* LEVOTHYROXINE 200 MCG TABLET take 1 tablet by mouth once d* INSULIN LISPRO (U-100) 100 UN* INJECT 10 UNITS SUBCUTANEOUSL* WARFARIN 4 MG TABLET Take 1.5 tablets by mouth onc* BENZONATATE 100 MG CAPSULE Take 1 capsule by mouth three* ALBUTEROL SULFATE HFA 90 MCG/* Inhale 2 Puffs as instructed * BD ULTRA-FINE SHORT PEN NEEDL* USE WITH INSULIN four times a* FLECAINIDE 50 MG TABLET take 1 tablet by mouth once d* LANTUS SOLOSTAR U-100 INSULIN* inject 27 units subcutaneousl* PRAVASTATIN 40 MG TABLET Take 1 tablet by mouth once d* ALLOPURINOL 300 MG TABLET take 1 tablet by mouth once d* SPIRONOLACTONE 25 MG TABLET take 1/2 tablet by mouth once* LIRAGLUTIDE 0.6 MG/0.1 ML (18* Inject 0.6 mg daily via pen * METOPROLOL SUCCINATE ER 100 M* take 1 tablet by mouth once d* BLOOD SUGAR DIAGNOSTIC STRIPS check blood sugars 4 times d* WARFARIN 5 MG TABLET HOLD INSULIN LISPRO (U-100) 100 UN* use 5 units with breakfast, 7* FUROSEMIDE 40 MG TABLET Take 1 tablet by mouth twice * VITAMIN D3 1,000 UNIT TABLET Takes 2 daily CENTRUM 0.4 MG-162 MG-18 MG T* Take one(1) tablet daily. ASPIRIN 81 MG TABLET Take one (1) tablet daily . FOLIC ACID 1 MG TABLET Take one (1) tablet daily. Problem List As Of Date 07/11/2018 Noted Resolved IRON DEFIC ANEMIA NOS [D50.9] 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 Fatty liver [K76.0] INVALID FOR* CKD (chronic kidney disease) stage 3, GFR 30-59*INVALID FOR* Edema [R60.9] INVALID FOR* Stasis dermatitis [I87.2] INVALID FOR* Carotid stenosis [I65.29] More... CKD (chronic kidney disease), stage III [N18.3] 01/09/2018 More... Encounter Status:Closed by SHANTELLE CIFUENTES CNP on 07/11/18 MAGNO Observed: 06/25/2018 Status: COMPLETED Source: [place] 12:00 AM [facility] REPOSITORY Patient Outreach (INTMWH) REY GUY ([id number]) 1940 F NFR Date Time Provider Department 06/25/18 MARCELINO MOON [facility] During your visit today, we recorded the following information about you: Allergies As of Date: 06/25/2018 Noted Allergy Reaction HERBAL DRUGS 08/31/2004 VASOTEC (ENALAPRIL MALEATE) 07/26/2005 Comments: coughing ZOCOR (SIMVASTATIN) 08/31/2004 Comments: increase of liver enzymes Date Reviewed: 04/11/2018 Reviewed by: Joanie Roberts RN - Fully Assessed Visit Diagnosis:Medication management [Z79.899] Order(s):ALBUMIN/CREAT RATIO RND UR [SQUACR] Order #: [id number] FUTURE HGB A1C [VLPRY4J] Order #: [id number] FUTURE Prescriptions as of 06/25/2018 Sig: AMLODIPINE 10 MG TABLET take 1 tablet by mouth once d* BD ULTRA-FINE SHORT PEN NEEDL* USE WITH INSULIN four times a* LEVOTHYROXINE 200 MCG TABLET take 1 tablet by mouth once d* INSULIN LISPRO (U-100) 100 UN* INJECT 10 UNITS SUBCUTANEOUSL* X CLONIDINE 0.3 MG/24 HR WEEKLY* Apply 1 Patch as directed onc* WARFARIN 4 MG TABLET Take 1.5 tablets by mouth onc* BENZONATATE 100 MG CAPSULE Take 1 capsule by mouth three* ALBUTEROL SULFATE HFA 90 MCG/* Inhale 2 Puffs as instructed * BD ULTRA-FINE SHORT PEN NEEDL* USE WITH INSULIN four times a* FLECAINIDE 50 MG TABLET take 1 tablet by mouth once d* LANTUS SOLOSTAR U-100 INSULIN* inject 27 units subcutaneousl* PRAVASTATIN 40 MG TABLET Take 1 tablet by mouth once d* ALLOPURINOL 300 MG TABLET take 1 tablet by mouth once d* SPIRONOLACTONE 25 MG TABLET take 1/2 tablet by mouth once* LIRAGLUTIDE 0.6 MG/0.1 ML (18* Inject 0.6 mg daily via pen * METOPROLOL SUCCINATE ER 100 M* take 1 tablet by mouth once d* BLOOD SUGAR DIAGNOSTIC STRIPS check blood sugars 4 times d* WARFARIN 5 MG TABLET HOLD INSULIN LISPRO (U-100) 100 UN* use 5 units with breakfast, 7* FUROSEMIDE 40 MG TABLET Take 1 tablet by mouth twice * VITAMIN D3 1,000 UNIT TABLET Takes 2 daily CENTRUM 0.4 MG-162 MG-18 MG T* Take one(1) tablet daily. ASPIRIN 81 MG TABLET Take one (1) tablet daily . FOLIC ACID 1 MG TABLET Take one (1) tablet daily. Problem List As Of Date 06/25/2018 Noted Resolved IRON DEFIC ANEMIA NOS [D50.9] 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 Fatty liver [K76.0] INVALID FOR* CKD (chronic kidney disease) stage 3, GFR 30-59*INVALID FOR* Edema [R60.9] INVALID FOR* Stasis dermatitis [I87.2] INVALID FOR* Carotid stenosis [I65.29] More... CKD (chronic kidney disease), stage III [N18.3] 01/09/2018 More... Encounter Status:Closed by EPIC, PRODUSER on 07/26/18 PROGRESS Observed: 06/06/2018 Status: COMPLETED Source: [place] 1:59 PM [facility] REPOSITORY HNO ID: [id number] Author: Shantelle Cifuentes Service: (none) Author Type: Nurse Practitioner Type: Progress Notes Filed: 06/06/2018 3:27 PM Note Text: Agree with recommendations. Shantelle Cifuentes APRN.CNP PROGRESS Observed: 06/06/2018 Status: COMPLETED Source: [place] 1:02 PM [facility] REPOSITORY HNO ID: [id number] Author: Digna Segovia RN Service: (none) Author Type: (none) Type: Progress Notes Filed: 06/06/2018 1:04 PM Note Text: patient had inr completed at [facility] patients inr is 2.6 (patients inr range is 2.0-3.0) patient is currently taking 6mg Mon,Tues,Wed,and 4mg all other days patients last dose change was on 05/13/18 due to a low level of 1.8 (dose at that time was 6mg Tues,Wed and 4mg al other days) patient has had no changes in medication and no missed doses and no change in diet Advised patient to continue on the same dose(s) and that they would only be contacted regarding dosage and follow up instructions after review with provider, if a change is needed. Written instructions given and patient verbalized understanding. Presently scheduled in 5 weeks (07/11/18 - appt with AMANDA Cifuentes after) for follow up INR. 12 LEAD ELECTROCARDIOGRAM Observed: 05/28/2018 Status: F Source: [place] 1:50 PM [facility] [facility] Cardiovascular Services [address] [place] [address] 12 Lead EKG 05/24/18 1050 MR#: [id number] Acct: [id number] Name: REY GUY Rep #: [id number] : 1940 78 From: Jelani aSnders MD Attending Dr: Status: DEP ER Ordering Dr: Harjinder Collier MD Date: 05/24/18 Location: ED Sex: F C Admitted: Test Reason : SYNCOPE Blood Pressure : / mmHG Vent. Rate : 053 BPM Atrial Rate : 053 BPM P-R Int : 190 ms QRS Dur : 104 ms QT Int : 458 ms P-R-T Axes : 023 011 047 degrees QTc Int : 429 ms Sinus bradycardia Otherwise normal ECG Confirmed by JELANI SANDERS MD ([id number]), art editor PHILL VAN ([id number]) on 05/28/2018 1:49:43 PM Referred By: DARELL Confirmed By:JELANI SANDERS MD 05/28/18 1349 Date Jelani Sanders MD CC: Harjinder Collier MD; Marcelino Kerr DO Signed DISCHARGE INSTRUCTION Observed: 05/24/2018 Status: F Source: [place] 3:34 PM [facility] [place] [facility] Medical Records Department [address] [place] [id number] Discharge Instruction 05/24/18 1414 MR#: [id number] Acct: [id number] Name: REY GUY Rep #: [id number] : 1940 78 From: Harjinder Collier MD PCP: Marcelino Kerr DO Status: DEP ER ED Disposition - Plan for ED Patient: Disposition: Home or Assisted Living Chief Complaint: Shortness of Breath Instructions: ED Dyspnea Shortness of Breath Referrals: Marcelino Moon DO [Primary Care Provider] - As soon as possible Additional Instructions: Return if feeling worse. Otherwise follow-up your primary care physician. What to do if you have Problems For any increased pain, shortness of breath, bleeding, nausea or vomiting, chest pain, or any unexpected problems, contact your Primary Care Provider. Call [employer] [facility] ([phone]) or report to the closest Emergency Room. Call 911 if necessary. 05/24/18 5737 <Electronically signed by Harjinder Collier MD> Date Harjinder Collier MD Cosigner Signature (If Indicated): Date CC: Marcelino Kerr DO EMERGENCY DEPARTMENT Observed: 05/24/2018 Status: F Source: [place] SUMMARY 3:33 PM [facility] [place] [facility] Medical Records Department [address] [place] [address] Emergency Department Summary 05/24/18 1106 MR#: [id number] Acct: [id number] Name: REY GUY Rep #: [id number] : 1940 78 From: Harjinder Collier MD PCP: Marcelino Kerr DO Status: DEP ER - ER Visit Summary Date of Service: 05/24/18 Chief Complaint: Shortness of breath History of Present Illness: The patient is a 78 F Lady of intermittent shortness of breath for weeks. Denies any chest pain. No hemoptysis. No history of DVT or PE. Denies any leg pain or swelling. No recent travel or surgery. No recent hospitalization. She does get more short of breath with exertion primarily walking steps but again no chest pain. Currently she is symptom-free. She denies any fever. She has had a mild nonproductive cough. She has no known cardiac history of intermittent A. fib. No lung disease. Physical Examination: Female no acute distress. Vital signs are stable she is bradycardic at 56. Pulse ox 90% on room air sitting in bed. Currently she is symptom-free. H EENT exam unremarkable. Neck nontender no JVD. Lungs clear to auscultation bilaterally. Heart regular rhythm rate about 55 no murmur. Abdomen soft nontender normal bowel sounds no peritoneal signs. She is moving all 4 extremities. They are equal and symmetrical. Calves are nontender without edema or cords. Dorsi plantar flexion intact. Equal symmetrical supervisor frame assembly strength. Back exam nontender. Neurologically she is awake and alert with no focal motor or sensory deficits. Test Results: EKG shows sinus bradycardia rate of 53 with no acute ischemic changes. No acute abnormality. No change from prior EKG in 2015. CBC shows a white count of 10. Hemoglobin of 12. Electrolytes are unremarkable creatinine is 1.43. Glucose 190. Normal gap. She is on Coumadin her INR is 2.0. Her troponin is normal. Chest x- ray shows mild vascular seen consistent with possibly mild CHF. Emergency Department Course and Treatment: With intermittent shortness of breath. Has basically unremarkable exam. Treatment Plan: Repeat exam the patient is doing well at 1412. I went over all test results of both her and her and they are comfortable with her being discharged to home. She will follow-up with her primary care physician Dr. Moon at the [facility] Disposition: Discharge Impression: Acute dyspnea of uncertain etiology Renal insufficiency This note was generated with [employer] dictation software. It may contain incorrect words, spelling, and punctuation that were not noted in review of the chart prior to signing ED Disposition - Plan for ED Patient: Chief Complaint: Shortness of Breath Referrals: Marcelino Moon DO [Primary Care Provider] - What to do if you have Problems For any increased pain, shortness of breath, bleeding, nausea or vomiting, chest pain, or any unexpected problems, contact your Primary Care Provider. Call [facility] ([phone]) or report to the closest Emergency Room. Call 911 if necessary. 05/24/18 1533 <Electronically signed by Harjinder Collier MD> Date Harjinder Collier MD Cosigner Signature (If Indicated): Date CC: Marcelino Kerr DO CHEST 1 VIEW Observed: 05/24/2018 Status: F Source: [place] (PORTABLE) 11:24 AM [facility] [place] [facility] Imaging Services [address] [place] [id number] Chest 1 View (Portable) MR#: [id number] Acct: [id number] Name: REY GUY #: [id number] : 1940 F 78 From: Alvaro Martinez MD PCP: Marcelino Kerr DO Status: REG ER Study: Chest 1 View (Portable) Date of Exam: 05/24/18 Exam# [id number] Ordering Dr: Harjinder Collier MD STUDY: X-RAY CHEST REASON FOR EXAM: Female, 78 years old. Chest pain. TECHNIQUE: Single AP portable view of the chest. COMPARISON: Comparison is made with prior examination dated August 10, 2015. FINDINGS: EKG electrodes are seen. There is evidence of vascular congestion and a mild degree of CHF. There is no demonstrated pleural abnormality. There is mild cardiac enlargement. Normal mediastinum and jamila. Normal visualized pulmonary arteries. There is atherosclerotic calcification of the aortic arch with tortuosity. Normal visualized thoracic spine. Normal visualized ribs, clavicles, and shoulders. There is no demonstrated abnormality of the visualized soft tissue structures of the upper abdomen. RAD/Chest 1 View (Portable) IMPRESSION: Vascular congestion and mild degree of CHF. Electronically Signed: Alvaro Martinez MD at 11:44 EDT Tel [phone], Service support , CC: Harjinder Collier MD; Marcelino Kerr DO Senior Formulation Scientist: Signed CBC W/DIFF, AUTOMATED Collected: 05/24/2018 Status: F Source: [place] 10:50 AM [facility] [place] TYPE CODE TESTS RESULT OUT OF RANGE REFERENCE UNITS LAB L100.1000 4.4-11.0 K/mm3 Normal WBC 10.5 LAB L100.1200 4.2-5.4 M/mm3 Normal RBC 4.27 LAB L100.1300 12.0-15.0 g/dl Normal HGB 12.8 LAB L100.1400 37-47 % Normal HCT 39.2 LAB L100.1500 81-99 fL Normal MCV 91.8 LAB L100.1600 27.0-32.0 pg Normal MCH 30.0 LAB L100.1700 32-36 g/gl Normal MCHC 32.7 LAB L100.1810 11.6-14.6 % Normal RDW CV 14.3 LAB L100.1820 35.1-43.9 fl High RDW SD 47.0 LAB L100.1900 150-450 K/mm3 Normal PLT 274 LAB L100.2000 6.2-12.0 fl Normal MPV 11.7 LAB L100.2100 47-70 % Normal NEUT% 65.2 LAB L100.2200 19-41 % Normal LY% 23.4 LAB L100.2300 0-10 % Normal MONO% 6.2 LAB L100.2400 0-5 % Normal EO% 4.5 LAB L100.2500 0-1 % Normal BASO% 0.5 LAB L100.2550 0.0-0.9 % Normal IM GRAN % 0.200 Result Comment: IG% - Immature Granulocytes (promyelocytes, myelocytes and metamyelocytes) > 1% indicates that a LEFT SHIFT is Present. LAB L100.2620 2.0-7.7 X10 3/uL Normal Absolute Neut 6.8 LAB L100.2720 0.83-4.51 X10 3/ul Normal Absolute Lymph 2.45 Performed By: #### L100.0100 #### [facility] [address] [place], [place], [id number] PROTHROMBIN TIME W/INR Collected: 05/24/2018 Status: F Source: [place] 10:50 AM [facility] [place] TYPE CODE TESTS RESULT OUT OF RANGE REFERENCE UNITS LAB L300.4150 11.7-14.9 SECONDS High PROTIME 23.1 LAB L300.4200 Normal INR 2.0 Performed By: #### L300.3900 #### [facility] [address] [place], [place], [address] BASIC METABOLIC Collected: 05/24/2018 Status: F Source: [place] PROFILE (BMP) 10:50 AM [facility] [place] TYPE CODE TESTS RESULT OUT OF RANGE REFERENCE UNITS LAB L501.0100 74-106 mg/dL High GLU 190 Result Comment: Fasting Glucose result greater than or equal to 126 mg/dL suggests DIABETES MELLITUS per A.D.A. criteria. Please note revised GLUCOSE reference range effective 2017. LAB L501.1000 7-18 mg/dL High BUN 40 LAB L501.1100 0.55-1.02 mg/dL High CREAT,SERUM 1.43 Result Comment: The validity of the calculated GFR AND GFRAA in patients over 70 years has not been determined. Clinical correlation is essential. LAB L501.1110 >60 mL/min Low EST GFR 38 Result Comment: Non- GFR Calc LAB L501.1115 >60 mL/min Low EST GFR - AA 46 Result Comment: GFR Calc LAB L501.1255 ml/min Normal Estimated CRCL 25.23 LAB L501.1300 10-20 RATIO High BUN/CRE 28.0 LAB L501.2200 8.5-10 mg/dL Normal .1 CA 8.8 LAB L501.5300 136-14 mmol/L Normal 5 NA 138 LAB L501.5600 3.5-5. mmol/L Normal 1 K 4.4 LAB L501.5900 98-107 mmol/L Normal CL 106 LAB L501.6100 21.0-3 mmol/L Normal 2.0 CO2 24.0 LAB L501.6200 5-15 Normal GAP 8 Performed By: #### L500.2500, L501.4010 #### [facility] [address] [place], [address] TROPONIN-I Collected: 05/24/2018 Status: F Source: [place] 10:50 AM [facility] [place] TYPE CODE TESTS RESULT OUT OF RANGE REFERENCE UNITS LAB L501.4010 <0.045 ng/mL Normal < 0.015 TROPONIN-I Result Comment: TROPONIN-I EXPECTED VALUES <0.045 Negative 0.045 - 0.590 Consistent with Cardiac Damage > OR = 0.600 Critical Value Not every elevated troponin is indicative of SD. These values should be used with clinical judgement in examining the patient's clinical picture for diagnosis. To establish a diagnosis of SD versus myocardial injury, there must be a demonstrated rise and/or fall in the troponin values, in addition to ischemic symptoms, EKG changes, new regional wall motion abnormality, and/or angiographical evidence. PLEASE NOTE: REFERENCE RANGES EDITED 18 Performed By: #### L500.2500, L501.4010 #### [facility] [address] [place], [place], [id number] PROGRESS Observed: 05/23/2018 Status: COMPLETED Source: [place] 12:59 PM [facility] REPOSITORY HNO ID: [id number] Author: Abdirashid Eldridge) Harper Service: (none) Author Type: Physician Type: Progress Notes Filed: 05/23/2018 12:59 PM Note Text: INR therapeutic. Continue current coumadin dosage and follow up in 2 weeks. PROGRESS Observed: 05/23/2018 Status: COMPLETED Source: [place] 11:59 AM [facility] REPOSITORY HNO ID: [id number] Author: Digna Segovia RN Service: (none) Author Type: (none) Type: Progress Notes Filed: 05/23/2018 12:01 PM Note Text: patient had inr completed at [facility] patients inr is 2.6 (patients inr range is 2.0-3.0) patient is currently taking 6mg Mon,Tue,Wed and 4mg all other days patients last dose change was on 05/13/18 due to a low level of 1.8 (dose at that time was 6mg Tues,Wed, and 4mg all other days) patient has had no changes in medication except for coumadin and no missed doses and no change in diet Advised patient to continue on the same dose(s) and that they would only be contacted regarding dosage and follow up instructions after review with provider, if a change is needed. Written instructions given and patient verbalized understanding. Presently scheduled in 2 weeks (06/06/18) for follow up INR since this is the first normal reading since dose change. PROGRESS Observed: 05/13/2018 Status: COMPLETED Source: [place] 3:48 PM [facility] REPOSITORY HNO ID: [id number] Author: Salma Berrios LPN Service: (none) Author Type: (none) Type: Progress Notes Filed: 05/13/2018 3:49 PM Note Text: pt notified of dose change with understanding and patient correctly stated new dose. PROGRESS Observed: 05/13/2018 Status: COMPLETED Source: [place] 2:01 PM [facility] REPOSITORY HNO ID: [id number] Author: Marcelino Moon Service: (none) Author Type: Physician Type: Progress Notes Filed: 05/13/2018 3:49 PM Note Text: Increase dose of coumadin to 6 mg on Mon, Tues, Wed and 4 mg other days of week, f/u as scheduled INR 1 week Marcelino Moon DO PROGRESS Observed: 05/13/2018 Status: COMPLETED Source: [place] 1:48 PM [facility] REPOSITORY HNO ID: [id number] Author: Digna Segovia RN Service: (none) Author Type: (none) Type: Progress Notes Filed: 05/13/2018 1:49 PM Note Text: patient had inr completed at [facility] patients inr is 1.8 (patients inr range is 2.0-3.0) patient is currently taking 6mg Tues,Wed and 4mg all other days patients last dose change was on 05/06/18 due to a low level of 1.9 (dose at that time was 6mg Wed and 4mg all other days) patient has had no changes in medication except for coumadin and no missed doses and no change in diet Advised patient that they would be contacted regarding medication dose and when to follow up after information is reviewed by provider. After provider review please contact the patient with information and schedule follow up appointment with coumadin clinic. FYI - patient has been scheduled for an inr in 1 week 05/23/18 PROGRESS Observed: 05/06/2018 Status: COMPLETED Source: [place] 3:58 PM [facility] REPOSITORY HNO ID: [id number] Author: Salma Berrios LPN Service: (none) Author Type: (none) Type: Progress Notes Filed: 05/06/2018 3:59 PM Note Text: Pt notified with understanding and correctly read back instructions. Appointment scheduled. PROGRESS Observed: 05/06/2018 Status: COMPLETED Source: [place] 3:12 PM [facility] REPOSITORY HNO ID: [id number] Author: Shantelle Cifuentes Service: (none) Author Type: Nurse Practitioner Type: Progress Notes Filed: 05/06/2018 3:59 PM Note Text: Take coumadin 6mg tomorrow and Sunday and 4 mg the rest of the week and recheck in 1 week. Shantelle Cifuentes APRN.JESUS PROGRESS Observed: 05/06/2018 Status: COMPLETED Source: [place] 2:22 PM [facility] REPOSITORY HNO ID: [id number] Author: Digna Segovia RN Service: (none) Author Type: (none) Type: Progress Notes Filed: 05/06/2018 2:24 PM Note Text: patient had inr completed at [facility] patients inr is 1.9 (patients inr range is 2.0-3.0) patient is currently taking 6mg Wed and 4mg all other days patients last dose change was on 08/27/17 due to a high level of 3.7 (dose at that time was 6mg Mon,Fri and 4mg all other days) patient has had no changes in medication and no missed doses and no change in diet FYI - patients levels have been trending down for her past 3 check (6/4 - 2.2, 7/2 - 2.0, and today 1.9) Advised patient that they would be contacted regarding medication dose and when to follow up after information is reviewed by provider. After provider review please contact the patient with information and schedule follow up appointment with coumadin clinic. FYI - patient has been scheduled for a 2 week follow up inr on 05/23/18 PROGRESS Observed: 04/11/2018 Status: COMPLETED Source: [place] 9:39 AM [facility] REPOSITORY HNO ID: [id number] Author: Servando Fields Service: (none) Author Type: Physician Type: Progress Notes Filed: 04/11/2018 5:53 PM Note Text: PERTINENT CARDIAC HISTORY PAF HTN DM HL Lymphedema ADHERENCE TO GUIDELINES MAHSA-I or ARB for HF with prior LVEF<40 (NQF 0081) - N/A ASA or Plavix for ASHD (NQF 0067) - N/A Beta fabio for ASHD with prior SD or prior LVEF<40 (NQF 0070) - N/A Beta fabio for HF with prior LVEF<40 (NQF 0083) - N/A MAHSA-I or ARB for ASHD with DM or prior LVEF<40 (NQF 0066) - N/A Statin therapy for ASHD or FHL or DM - met BMI documented and plan if >25 (NQF 0421) - lifestyle recommendation form Tobacco use screening and referral (NQF 0028) - lifestyle recommendation form Recommendation for whole food, plant based diet - lifestyle recommendation form CLINICAL IMPRESSION/PLAN: Rey Guy is doing reasonably well. Blood pressure is slightly high today, but by report is in the 130/70 range at home. She's been advised to check this regularly and contact me if it goes out of this range. We can add MAHSA inhibitor if necessary. She'll be seeing her woodworking belt sander in the near future and I asked her to bring this issue up. She has not had proteinuria in the past. She's been advised to wear support stockings. This may help with any postural hypotension. I will see her in 8 months or as needed. If there is increased chest pain or shortness of breath, she has been advised to contact me Written and verbal health teaching given to patient, patient verbalizes understanding and agrees with treatment plan. DIAGNOSIS FOR VISIT: PAF Hypertension HISTORY OF PRESENT ILLNESS Rey Guy returns for follow-up of her PAF. She reports some rare episodes of chest tightness lasting minutes. This is not related to activity and has required no nitroglycerin. She's had rare brief episodes of palpitation lasting seconds. She's been under a lot of stress as her has been ill and she has been babysitting her grandchild with ADHD. She's had no exertional chest discomfort. She's had chronic edema. She denies syncope. She's had no TIAs, amaurosis or claudication. She has occasional postural lightheadedness. ALLERGIES: ALLERGIES Allergen Reactions - Herbal Drugs - Vasotec [Enalapril * coughing - Zocor [Simvastatin] increase of liver enzymes CURRENT OUTPATIENT MEDICATIONS: levothyroxine (SYNTHROID) 200 mcg tablet Take 1 tablet by mouth once daily. warfarin (COUMADIN) 4 mg tablet Take 1.5 tablets by mouth once daily. Or as directed benzonatate (TESSALON PERLE) 100 mg capsule Take 1 capsule by mouth three times daily as needed. albuterol HFA (PROVENTIL HFA, VENTOLIN HFA) 90 mcg/actuation inhaler Inhale 2 Puffs as instructed every 4 hours as needed for Wheezing/Shortness of Breath. BD INSULIN PEN NEEDLE UF 31 gauge x 5/16 ndle USE WITH INSULIN four times a day cloNIDine TTS (CATAPRES-TTS) 0.3 mg/24 hr apply 1 patch every week as directed flecainide (TAMBOCOR) 50 mg tablet take 1 tablet by mouth once daily pravastatin (PRAVACHOL) 40 mg tablet Take 1 tablet by mouth once daily. amLODIPine (NORVASC) 10 mg tablet take 1 tablet by mouth once daily allopurinol (ZYLOPRIM) 300 mg tablet take 1 tablet by mouth once daily spironolactone (ALDACTONE) 25 mg tablet take 1/2 tablet by mouth once daily metoprolol succinate ER (TOPROL XL) 100 mg Tb24 take 1 tablet by mouth once daily furosemide (LASIX) 40 mg tablet Take 1 tablet by mouth twice daily. cholecalciferol(VITAMIN D 1,000 UNIT TAB) Takes 2 daily CENTRUM 27 MG-0.4 MG TAB Take one(1) tablet daily. ASPIRIN 81 MG TAB Take one (1) tablet daily . FOLIC ACID 1MG TABLET Take one (1) tablet daily. LANTUS SOLOSTAR U-100 INSULIN 100 unit/mL (3 mL) inpn inject 27 units subcutaneously once daily at bedtime liraglutide (VICTOZA 2-PHYLICIA) 0.6 mg/0.1 mL (18 mg/3 mL) pnij Inject 0.6 mg daily via pen Indications: TYPE 2 DIABETES MELLITUS Insulin Lispro, Human, (HUMALOG KWIKPEN) 100 unit/mL inpn Take 10 units with breakfast, 10 unit lunch, and 10 units supper blood sugar diagnostic (ONETOUCH ULTRA TEST) test strip check blood sugars 4 times daily warfarin (COUMADIN) 5 mg tablet HOLD Insulin Lispro, Human, (HUMALOG KWIKPEN) 100 unit/mL inpn use 5 units with breakfast, 7 units with lunch and 10 units with supper PHYSICAL EXAMINATION: VITAL SIGNS: BP 152/84 Pulse 66 Wt 203 lb 1.6 oz (92.1kg) Chest: Clear to percussion and auscultation. Trachea is midline. Air entry is equal. Cardiac: Regular rhythm. S1 and S2 are normal. PMI is nondisplaced. There is a soft systolic ejection murmur. Carotids are brisk without bruits. JVP is less than 10 cm. Abdomen: Soft and nontender. There are no pulsatile masses or bruits. No liver enlargement. Bowel sounds are active. Extremities: 1 plus edema plus lymphedema with cobblestoning. Pulses are intact and symmetrical. EKG shows sinus bradycardia and is otherwise within normal limits. There is no significant change. Electronically Signed: Servando Fields MD April 11, 2018 9:39 AM CC: Marcelino Moon DO EKG1 Observed: 04/11/2018 Status: F Source: [place] 9:16 AM [facility] REPOSITORY NAME : REY GUY PID : [id number] : 1940 Gender : Female Race : ORD : Procedure Date : Apr 11 2018 09:16:42 Edit Date : Apr 12 2018 12:08:42 Diagnosis:SINUS BRADYCARDIA OTHERWISE NORMAL ECG NO SIGNIFICANT CHANGE FROM PREVIOUS ECG Confirmed by SERVANDO FIELDS MD ([id number]) on 04/12/2018 12:08:35 PM Ventricular Rate : 54 BPM Atrial Rate : 54 BPM P-R Interval : 188 ms QRS Duration : 104 ms Q-T Interval : 448 ms QTC Calculation(Bezet) : 424 ms P [place] : 2 degrees R [place] : -14 degrees T [place] : 21 degrees Test Reason : Location : 136 : [facility] Overread By : SERVANDO FIELDS MD Edited By : SERVANDO FIELDS MD Referred By : SERVANDO FIELDS Acquired by : FAINA BEAULIEU Observed: 04/11/2018 Status: COMPLETED Source: [place] 9:00 AM [facility] REPOSITORY Office Visit ([facility]) ORIENTAL ORTHODOXREY EARL ([id number]) 1940 F NFR Date Time Provider Department 04/11/18 9:00 AM SERVANDO FIELDS E [facility] During your visit today, we recorded the following information about you: Pulse Blood pressure Weight 66/minute 152/84 92.1 kg Servando Fields MD 04/11/2018 5:53 PM Signed PERTINENT CARDIAC HISTORY PAF HTN DM HL Lymphedema ADHERENCE TO GUIDELINES MAHSA-I or ARB for HF with prior LVEF<40 (NQF 0081) - N/A ASA or Plavix for ASHD (NQF 0067) - N/A Beta fabio for ASHD with prior SD or prior LVEF<40 (NQF 0070) - N/A Beta fabio for HF with prior LVEF<40 (NQF 0083) - N/A MAHSA-I or ARB for ASHD with DM or prior LVEF<40 (NQF 0066) - N/A Statin therapy for ASHD or FHL or DM - met BMI documented and plan if >25 (NQ 0421) - lifestyle recommendation form Tobacco use screening and referral (NQ 0028) - lifestyle recommendation form Recommendation for whole food, plant based diet - lifestyle recommendation form CLINICAL IMPRESSION/PLAN: Rey Guy is doing reasonably well. Blood pressure is slightly high today, but by report is in the 130/70 range at home. She's been advised to check this regularly and contact me if it goes out of this range. We can add MAHSA inhibitor if necessary. She'll be seeing her woodworking belt sander in the near future and I asked her to bring this issue up. She has not had proteinuria in the past. She's been advised to wear support stockings. This may help with any postural hypotension. I will see her in 8 months or as needed. If there is increased chest pain or shortness of breath, she has been advised to contact me Written and verbal health teaching given to patient, patient verbalizes understanding and agrees with treatment plan. DIAGNOSIS FOR VISIT: PAF Hypertension HISTORY OF PRESENT ILLNESS Rey Guy returns for follow-up of her PAF. She reports some rare episodes of chest tightness lasting minutes. This is not related to activity and has required no nitroglycerin. She's had rare brief episodes of palpitation lasting seconds. She's been under a lot of stress as her has been ill and she has been babysitting her grandchild with ADHD. She's had no exertional chest discomfort. She's had chronic edema. She denies syncope. She's had no TIAs, amaurosis or claudication. She has occasional postural lightheadedness. ALLERGIES: ALLERGIES Allergen Reactions - Herbal Drugs - Vasotec [Enalapril * coughing - Zocor [Simvastatin] increase of liver enzymes CURRENT OUTPATIENT MEDICATIONS: levothyroxine (SYNTHROID) 200 mcg tablet Take 1 tablet by mouth once daily. warfarin (COUMADIN) 4 mg tablet Take 1.5 tablets by mouth once daily. Or as directed benzonatate (TESSALON PERLE) 100 mg capsule Take 1 capsule by mouth three times daily as needed. albuterol HFA (PROVENTIL HFA, VENTOLIN HFA) 90 mcg/actuation inhaler Inhale 2 Puffs as instructed every 4 hours as needed for Wheezing/Shortness of Breath. BD INSULIN PEN NEEDLE UF 31 gauge x 5/16 ndle USE WITH INSULIN four times a day cloNIDine TTS (CATAPRES-TTS) 0.3 mg/24 hr apply 1 patch every week as directed flecainide (TAMBOCOR) 50 mg tablet take 1 tablet by mouth once daily pravastatin (PRAVACHOL) 40 mg tablet Take 1 tablet by mouth once daily. amLODIPine (NORVASC) 10 mg tablet take 1 tablet by mouth once daily allopurinol (ZYLOPRIM) 300 mg tablet take 1 tablet by mouth once daily spironolactone (ALDACTONE) 25 mg tablet take 1/2 tablet by mouth once daily metoprolol succinate ER (TOPROL XL) 100 mg Tb24 take 1 tablet by mouth once daily furosemide (LASIX) 40 mg tablet Take 1 tablet by mouth twice daily. cholecalciferol(VITAMIN D 1,000 UNIT TAB) Takes 2 daily CENTRUM 27 MG-0.4 MG TAB Take one(1) tablet daily. ASPIRIN 81 MG TAB Take one (1) tablet daily . FOLIC ACID 1MG TABLET Take one (1) tablet daily. LANTUS SOLOSTAR U-100 INSULIN 100 unit/mL (3 mL) inpn inject 27 units subcutaneously once daily at bedtime liraglutide (VICTOZA 2-PHYLICIA) 0.6 mg/0.1 mL (18 mg/3 mL) pnij Inject 0.6 mg daily via pen Indications: TYPE 2 DIABETES MELLITUS Insulin Lispro, Human, (HUMALOG KWIKPEN) 100 unit/mL inpn Take 10 units with breakfast, 10 unit lunch, and 10 units supper blood sugar diagnostic (Gateway Development GroupTOUCH ULTRA TEST) test strip check blood sugars 4 times daily warfarin (COUMADIN) 5 mg tablet HOLD Insulin Lispro, Human, (HUMALOG KWIKPEN) 100 unit/mL inpn use 5 units with breakfast, 7 units with lunch and 10 units with supper PHYSICAL EXAMINATION: VITAL SIGNS: BP 152/84 Pulse 66 Wt 203 lb 1.6 oz (92.1kg) Chest: Clear to percussion and auscultation. Trachea is midline. Air entry is equal. Cardiac: Regular rhythm. S1 and S2 are normal. PMI is nondisplaced. There is a soft systolic ejection murmur. Carotids are brisk without bruits. JVP is less than 10 cm. Abdomen: Soft and nontender. There are no pulsatile masses or bruits. No liver enlargement. Bowel sounds are active. Extremities: 1 plus edema plus lymphedema with cobblestoning. Pulses are intact and symmetrical. EKG shows sinus bradycardia and is otherwise within normal limits. There is no significant change. Electronically Signed: Servando Fields MD April 11, 2018 9:39 AM CC: DO Servando Sr MD 04/11/2018 9:41 AM Signed LIFESTYLE CHANGE A healthy lifestyle is the most important component of your overall treatment plan. Please give serious thought to the following areas and commit to making terminal supervisor changes. EAT A WHOLE FOOD, PLANT BASED DIET The nutrition your body gets is more important than the medicine you take. What matters most is the overall way you eat. We encourage you to minimize the use of animal products (which include dairy and all meats except fatty fish) and use whole, unprocessed plant foods to provide your protein, vitamins and other nutrients. We have a lot of information to share with you on this topic. This is not a diet. It is a way of life that you will keep with you. EXERCISE REGULARLY It is not important to spend hours in the gym, lifting weights and perspiring heavily. A total of 2-3 hours per week of aerobic (causing you to be moderately short of breath) exercise is sufficient to improve your health. Talk to us before you begin a new exercise program, if you have heart disease or experience shortness of breath or chest pain. REDUCE STRESS Chronic emotional and physical stress leads to disease. Ways of reducing stress include meditation, visualization, prayer, yoga and other forms of relaxation therapy. Consistency is the enriquez. Find a technique that works for you and do it every day. CULTIVATE RELATIONSHIPS Loneliness and isolation have a major negative impact on health. Seek out others who can love, care for and nurture you. Avoid hurtful relationships. MAINTAIN IDEAL BODY WEIGHT The best way to do this is to do all the things above. Our bodies naturally find the right weight if we keep moving and feed ourselves the right food. If your BMI is greater than 25, we strongly recommend a referral to a weight management program. Please speak to us or your family physician about available programs. AVOID NICOTINE IN ALL FORMS This includes all tobacco products, whether chewed, smoked, vaped, or rubbed on the skin. Smoking cessation programs, which can make use of tobacco substitutes, medications to suppress cravings and behavior management, are available. Please contact your family physician about programs in your area. Referring Provider: SELF [[id number]] Allergies As of Date: 04/11/2018 Noted Allergy Reaction HERBAL DRUGS 08/31/2004 VASOTEC (ENALAPRIL MALEATE) 07/26/2005 Comments: coughing ZOCOR (SIMVASTATIN) 08/31/2004 Comments: increase of liver enzymes Date Reviewed: 04/11/2018 Reviewed by: Joanie Roberts RN - Fully Assessed Reason for Visit: Recheck [92] Primary Visit Diagnosis:PAF (paroxysmal atrial fibrillation) (HCC) [I48.0] Order(s):ECG COMPLETE W INTERPRETATION [ECG01] Order #: [id number] FUTURE ECHO [211391] Order #: [id number]: 1 FUTURE Prescriptions as of 04/11/2018 Sig: LEVOTHYROXINE 200 MCG TABLET Take 1 tablet by mouth once d* WARFARIN 4 MG TABLET Take 1.5 tablets by mouth onc* BENZONATATE 100 MG CAPSULE Take 1 capsule by mouth three* ALBUTEROL SULFATE HFA 90 MCG/* Inhale 2 Puffs as instructed * BD ULTRA-FINE SHORT PEN NEEDL* USE WITH INSULIN four times a* CLONIDINE 0.3 MG/24 HR WEEKLY* apply 1 patch every week as d* FLECAINIDE 50 MG TABLET take 1 tablet by mouth once d* PRAVASTATIN 40 MG TABLET Take 1 tablet by mouth once d* AMLODIPINE 10 MG TABLET take 1 tablet by mouth once d* ALLOPURINOL 300 MG TABLET take 1 tablet by mouth once d* SPIRONOLACTONE 25 MG TABLET take 1/2 tablet by mouth once* METOPROLOL SUCCINATE ER 100 M* take 1 tablet by mouth once d* FUROSEMIDE 40 MG TABLET Take 1 tablet by mouth twice * VITAMIN D3 1,000 UNIT TABLET Takes 2 daily CENTRUM 0.4 MG-162 MG-18 MG T* Take one(1) tablet daily. ASPIRIN 81 MG TABLET Take one (1) tablet daily . FOLIC ACID 1 MG TABLET Take one (1) tablet daily. 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 Fatty liver [K76.0] INVALID FOR* CKD (chronic kidney disease) stage 3, GFR 30-59*INVALID FOR* Edema [R60.9] INVALID FOR* Stasis dermatitis [I87.2] INVALID FOR* Carotid stenosis [I65.29] More... CKD (chronic kidney disease), stage III [N18.3] 01/09/2018 More... Other instructions from your clinician: LIFESTYLE CHANGE A healthy lifestyle is the most important component of your overall treatment plan. Please give serious thought to the following areas and commit to making custodial changes. EAT A WHOLE FOOD, PLANT BASED DIET The nutrition your body gets is more important than the medicine you take. What matters most is the overall way you eat. We encourage you to minimize the use of animal products (which include dairy and all meats except fatty fish) and use whole, unprocessed plant foods to provide your protein, vitamins and other nutrients. We have a lot of information to share with you on this topic. This is not a diet. It is a way of life that you will keep with you. EXERCISE REGULARLY It is not important to spend hours in the gym, lifting weights and perspiring heavily. A total of 2-3 hours per week of aerobic (causing you to be moderately short of breath) exercise is sufficient to improve your health. Talk to us before you begin a new exercise program, if you have heart disease or experience shortness of breath or chest pain. REDUCE STRESS Chronic emotional and physical stress leads to disease. Ways of reducing stress include meditation, visualization, prayer, yoga and other forms of relaxation therapy. Consistency is the enriquez. Find a technique that works for you and do it every day. CULTIVATE RELATIONSHIPS Loneliness and isolation have a major negative impact on health. Seek out others who can love, care for and nurture you. Avoid hurtful relationships. MAINTAIN IDEAL BODY WEIGHT The best way to do this is to do all the things above. Our bodies naturally find the right weight if we keep moving and feed ourselves the right food. If your BMI is greater than 25, we strongly recommend a referral to a weight management program. Please speak to us or your family physician about available programs. AVOID NICOTINE IN ALL FORMS This includes all tobacco products, whether chewed, smoked, vaped, or rubbed on the skin. Smoking cessation programs, which can make use of tobacco substitutes, medications to suppress cravings and behavior management, are available. Please contact your family physician about programs in your area. Encounter Status:Closed by SERVANDO FIELDS MD on 04/11/18 TSH Collected: 04/04/2018 Status: F Source: [place] 9:11 AM [facility] REPOSITORY TYPE CODE TESTS RESULT OUT OF RANGE REFERENCE UNITS LAB TSH 0.400-5.500 uU/mL TSH 3.600 Performed By: #### TSH #### [facility] [address] [place], [place] [address] PROGRESS Observed: 04/01/2018 Status: COMPLETED Source: [place] 2:52 PM [facility] REPOSITORY HNO ID: [id number] Author: Marcelino Moon Service: (none) Author Type: Physician Type: Progress Notes Filed: 04/01/2018 4:48 PM Note Text: Agree with below Marcelino Moon DO PROGRESS Observed: 04/01/2018 Status: COMPLETED Source: [place] 12:05 PM [facility] REPOSITORY HNO ID: [id number] Author: Digna Segovia RN Service: (none) Author Type: (none) Type: Progress Notes Filed: 04/01/2018 12:07 PM Note Text: patient had inr completed at [facility] patients inr is 2.0 (patients inr range is 2.0-3.0) patient is currently taking 6mg Wed and 4mg all other days patients last dose change was on 08/27/17 due to a high level of 3.7 (dose at that time was 6mg Mon,Wed and 4mg all other days) patient has had no changes in medication and no missed doses and no change in diet Advised patient to continue on the same dose(s) and that they would only be contacted regarding dosage and follow up instructions after review with provider, if a change is needed. Written instructions given and patient verbalized understanding. Presently scheduled in 5 weeks (05/06/18 - due to CC is closed at that 4 week josep) for follow up INR. PROGRESS Observed: 03/19/2018 Status: COMPLETED Source: [place] 9:33 AM [facility] REPOSITORY HNO ID: [id number] Author: Shantelle Cifuentes Service: (none) Author Type: Nurse Practitioner Type: Progress Notes Filed: 03/19/2018 10:07 AM Note Text: This note was created using [employer]. Subjective Rey Guy is a 78 year old female. The history is provided by the patient. No treasury director was used. URI She complains of cough, shortness of breath and sputum production. This is a new problem. The current episode started 1 to 4 weeks ago. The problem occurs constantly. The problem has been gradually improving. The cough is productive of sputum. Associated symptoms include appetite change (slightly decreased), headaches and nasal congestion. Pertinent negatives include no fever. Her symptoms are aggravated by nothing. Her symptoms are not alleviated by OTC cough suppressant (doxycyline, tussin DM). Review of Systems Constitutional: Positive for appetite change (slightly decreased). Negative for fever. Respiratory: Positive for cough, sputum production and shortness of breath. Neurological: Positive for headaches. Objective BP 158/62 Pulse 60 Resp 16 Wt 90.7 kg (200 lb) SpO2 96% BMI 36.58 kg/m? Physical Exam Constitutional: She appears well-developed and well-nourished. No distress. HENT: Head: Normocephalic and atraumatic. Right Ear: External ear normal. Left Ear: External ear normal. Nose: Nose normal. Mouth/Throat: Oropharynx is clear and moist. No oropharyngeal exudate. Eyes: Conjunctivae are normal. Neck: Normal range of motion. Neck supple. Cardiovascular: Normal heart sounds. No murmur heard. Pulmonary/Chest: Effort normal and breath sounds normal. No respiratory distress. She has no wheezes. She has no rales. + moist non-productive cough noted Lymphadenopathy: She has no cervical adenopathy. Skin: She is not diaphoretic. ASSESSMENT/PLAN: 1. Acute non-recurrent sinusitis, unspecified location - ICD9: 461.9, ICD10: J01.90 - extend antibiotics for another 3 days - GELACIO inhaler every 4-6 hours PRN for cough, SOB or wheezing - DOXYCYCLINE MONOHYDRATE 100 MG CAPSULE 2. Acute bronchitis, unspecified organism - ICD9: 466.0, ICD10: J20.9 - BENZONATATE 100 MG CAPSULE - ALBUTEROL SULFATE HFA 90 MCG/ACTUATION AEROSOL INHALER - as above -f/u PRN YUN PlataOV Observed: 03/19/2018 Status: COMPLETED Source: [place] 9:20 AM [facility] REPOSITORY Office Visit (FAMPWS) REY GUY ([id number]) 1940 F NFR Date Time Provider Department 03/19/18 9:20 AM SHANTELLE CIFUENTES (JESUS) [facility]WS During your visit today, we recorded the following information about you: Pulse Respiration Blood pressure Weight 60/minute 16/minute 158/62 90.7 kg Shantelle Gonzalez JENNIFER Cifuentes.JESUS 03/19/2018 10:07 AM Signed This note was created using [employer]. Subjective Rey Guy is a 78 year old female. The history is provided by the patient. No treasury director was used. URI She complains of cough, shortness of breath and sputum production. This is a new problem. The current episode started 1 to 4 weeks ago. The problem occurs constantly. The problem has been gradually improving. The cough is productive of sputum. Associated symptoms include appetite change (slightly decreased), headaches and nasal congestion. Pertinent negatives include no fever. Her symptoms are aggravated by nothing. Her symptoms are not alleviated by OTC cough suppressant (doxycyline, tussin DM). Review of Systems Constitutional: Positive for appetite change (slightly decreased). Negative for fever. Respiratory: Positive for cough, sputum production and shortness of breath. Neurological: Positive for headaches. Objective BP 158/62 Pulse 60 Resp 16 Wt 90.7 kg (200 lb) SpO2 96% BMI 36.58 kg/m? Physical Exam Constitutional: She appears well-developed and well-nourished. No distress. HENT: Head: Normocephalic and atraumatic. Right Ear: External ear normal. Left Ear: External ear normal. Nose: Nose normal. Mouth/Throat: Oropharynx is clear and moist. No oropharyngeal exudate. Eyes: Conjunctivae are normal. Neck: Normal range of motion. Neck supple. Cardiovascular: Normal heart sounds. No murmur heard. Pulmonary/Chest: Effort normal and breath sounds normal. No respiratory distress. She has no wheezes. She has no rales. + moist non-productive cough noted Lymphadenopathy: She has no cervical adenopathy. Skin: She is not diaphoretic. ASSESSMENT/PLAN: 1. Acute non-recurrent sinusitis, unspecified location - ICD9: 461.9, ICD10: J01.90 - extend antibiotics for another 3 days - GELACIO inhaler every 4-6 hours PRN for cough, SOB or wheezing - DOXYCYCLINE MONOHYDRATE 100 MG CAPSULE 2. Acute bronchitis, unspecified organism - ICD9: 466.0, ICD10: J20.9 - BENZONATATE 100 MG CAPSULE - ALBUTEROL SULFATE HFA 90 MCG/ACTUATION AEROSOL INHALER - as above -f/u PRN Shantelle Cifuentes APRN.FEATHER TRIMMER Referring Provider: SELF [200] Allergies As of Date: 03/19/2018 Noted Allergy Reaction HERBAL DRUGS 08/31/2004 VASOTEC (ENALAPRIL MALEATE) 07/26/2005 Comments: coughing ZOCOR (SIMVASTATIN) 08/31/2004 Comments: increase of liver enzymes Date Reviewed: 03/19/2018 Reviewed by: Lionel Pillai LPN - Fully Assessed Reason for Visit: Recheck [92] Cmt: follow up UC- cough/congestion; still has cough Visit Diagnoses:Acute non-recurrent sinusitis, unspecified location [J01.90] Acute bronchitis, unspecified organism [J20.9] Order(s):doxycycline monohydrate (MONODOX) 100 mg capsuleTake 1 capsule by mouth twice daily for 3 days.Disp: 6 capsuleRfl: 0 benzonatate (TESSALON PERLE) 100 mg capsuleTake 1 capsule by mouth three times daily as needed.Disp: 30 capsuleRfl: 0 albuterol HFA (PROVENTIL HFA, VENTOLIN HFA) 90 mcg/actuation inhalerInhale 2 Puffs as instructed every 4 hours as needed for Wheezing/Shortness of Breath.Disp: 1 InhalerRfl: 11 Prescriptions as of 03/19/2018 Sig: DOXYCYCLINE MONOHYDRATE 100 M* Take 1 capsule by mouth twice* BENZONATATE 100 MG CAPSULE Take 1 capsule by mouth three* ALBUTEROL SULFATE HFA 90 MCG/* Inhale 2 Puffs as instructed * BD ULTRA-FINE SHORT PEN NEEDL* USE WITH INSULIN four times a* CLONIDINE 0.3 MG/24 HR WEEKLY* apply 1 patch every week as d* FLECAINIDE 50 MG TABLET take 1 tablet by mouth once d* LANTUS SOLOSTAR U-100 INSULIN* inject 27 units subcutaneousl* LEVOTHYROXINE 200 MCG TABLET Take 1 tablet by mouth once d* PRAVASTATIN 40 MG TABLET Take 1 tablet by mouth once d* AMLODIPINE 10 MG TABLET take 1 tablet by mouth once d* ALLOPURINOL 300 MG TABLET take 1 tablet by mouth once d* SPIRONOLACTONE 25 MG TABLET take 1/2 tablet by mouth once* LIRAGLUTIDE 0.6 MG/0.1 ML (18* Inject 0.6 mg daily via pen * INSULIN LISPRO (U-100) 100 UN* Take 10 units with breakfast,* WARFARIN 4 MG TABLET Take 1 tablet by mouth once d* METOPROLOL SUCCINATE ER 100 M* take 1 tablet by mouth once d* BLOOD SUGAR DIAGNOSTIC STRIPS check blood sugars 4 times d* WARFARIN 5 MG TABLET HOLD INSULIN LISPRO (U-100) 100 UN* use 5 units with breakfast, 7* FUROSEMIDE 40 MG TABLET Take 1 tablet by mouth twice * VITAMIN D3 1,000 UNIT TABLET Takes 2 daily CENTRUM 0.4 MG-162 MG-18 MG T* Take one(1) tablet daily. ASPIRIN 81 MG TABLET Take one (1) tablet daily . FOLIC ACID 1 MG TABLET Take one (1) tablet daily. 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 Fatty liver [K76.0] INVALID FOR* CKD (chronic kidney disease) stage 3, GFR 30-59*INVALID FOR* Edema [R60.9] INVALID FOR* Stasis dermatitis [I87.2] INVALID FOR* Carotid stenosis [I65.29] More... CKD (chronic kidney disease), stage III [N18.3] 01/09/2018 More... Prescriptions ordered this encounter Disp Refills Start End DOXYCYCLINE MONOHYDRATE 100 MG CAPSU* 6 ca* 0 03/19/2018 03/22/2018 Route: ORAL Sig: Take 1 capsule by mouth twice daily for 3 days. BENZONATATE 100 MG CAPSULE 30 c* 0 03/19/2018 Route: ORAL Sig: Take 1 capsule by mouth three times daily as needed. ALBUTEROL SULFATE HFA 90 MCG/ACTUATI* 1 In* 11 03/19/2018 Route: INHALATION Sig: Inhale 2 Puffs as instructed every 4 hours as needed for Wheezing/Shortness of Breath. Medications Discontinued During This Encounter albuterol HFA (PROVENTIL HFA, VENTOL* 1 In* 1 12/24/2015 03/19/2018 Route: INHALATION Sig: Inhale 2 Puffs as instructed every 4 hours as needed. Disc: Course of therapy completed doxycycline monohydrate (MONODOX) 10* 14 c* 0 03/13/2018 03/19/2018 Route: ORAL Sig: Take 1 capsule by mouth twice daily for 7 days. Disc: Reason for discontinue is not on file. albuterol HFA 90 mcg/actuation inhal* 1 In* 11 11/11/2013 03/19/2018 Route: INHALATION Sig: Inhale 2 Puffs as instructed every 4 hours as needed for Wheezing/Shortness of Breath. Disc: Reason for discontinue is not on file. Encounter Status:Closed by SHANTELLE CIFUETNES CNP on 03/19/18 PROGRESS Observed: 03/13/2018 Status: COMPLETED Source: [place] 10:01 AM [facility] REPOSITORY [facility] ID: [id number] Author: Anson Ortiz Service: (none) Author Type: Physician Type: Progress Notes Filed: 03/13/2018 10:39 AM Note Text: Patient presents with: Cough Chest Congestion HPI: Feeling sick for a couple weeks. has pneumonia. Feeling run down. Positive symptoms: cough-productive, Wheezing, Sinus pressure, Nasal Congestion, Rhinorrhea, Post nasal drainage, Chills, Negative symptoms: Vomiting, Diarrhea, OTC: coricidin Cold Medicine, cough syrup DM Sometimes her head feels funny, her ears get warm, and faint like she might pass out. Has been happening for 6 months. Usually occurs while sitting. Has not checked her sugar after one of these spells. PAST MEDICAL HISTORY Diagnosis Date - Atrial fibrillation Dr. Fields Ror Engineer - Garcia's palsy Residual left face weakness - Carotid stenosis 01/2015 carotid US [facility] 01/2015 - CKD (chronic kidney disease), stage III Dr. Ortez Air Surveillance Operator [facility] - Diverticulosis of colon (without mention of hemorrhage) - Endometrial polyp 08/2013 - Gout, unspecified - Hyperlipidemia - Hypertension - Internal hemorrhoids without mention of complication - Iron deficiency anemia, unspecified - Obesity, unspecified - AJIT (obstructive sleep apnea) non-compliant with CPAP - Other chronic nonalcoholic liver disease - Stasis dermatitis - Type II or unspecified type diabetes mellitus without mention of complication, not stated as uncontrolled - Vitamin D deficiency MEDICATIONS: Current Outpatient Prescriptions: cloNIDine TTS (CATAPRES-TTS) 0.3 mg/24 hr apply 1 patch every week as directed flecainide (TAMBOCOR) 50 mg tablet take 1 tablet by mouth once daily LANTUS SOLOSTAR U-100 INSULIN 100 unit/mL (3 mL) inpn inject 27 units subcutaneously once daily at bedtime levothyroxine (SYNTHROID) 200 mcg tablet Take 1 tablet by mouth once daily. pravastatin (PRAVACHOL) 40 mg tablet Take 1 tablet by mouth once daily. BD INSULIN PEN NEEDLE UF 31 gauge x 16 ndle USE WITH INSULIN FOUR TIMES DAILY amLODIPine (NORVASC) 10 mg tablet take 1 tablet by mouth once daily allopurinol (ZYLOPRIM) 300 mg tablet take 1 tablet by mouth once daily spironolactone (ALDACTONE) 25 mg tablet take 1/2 tablet by mouth once daily liraglutide (VICTOZA 2-PHYLICIA) 0.6 mg/0.1 mL (18 mg/3 mL) pnij Inject 0.6 mg daily via pen Indications: TYPE 2 DIABETES MELLITUS Insulin Lispro, Human, (HUMALOG KWIKPEN) 100 unit/mL inpn Take 10 units with breakfast, 10 unit lunch, and 10 units supper warfarin (COUMADIN) 4 mg tablet Take 1 tablet by mouth once daily. Or as directed metoprolol succinate ER (TOPROL XL) 100 mg Tb24 take 1 tablet by mouth once daily blood sugar diagnostic (eDiets.com ULTRA TEST) test strip check blood sugars 4 times daily warfarin (COUMADIN) 5 mg tablet HOLD albuterol HFA (PROVENTIL HFA, VENTOLIN HFA) 90 mcg/actuation inhaler Inhale 2 Puffs as instructed every 4 hours as needed. Insulin Lispro, Human, (HUMALOG KWIKPEN) 100 unit/mL inpn use 5 units with breakfast, 7 units with lunch and 10 units with supper furosemide (LASIX) 40 mg tablet Take 1 tablet by mouth twice daily. albuterol HFA 90 mcg/actuation inhaler Inhale 2 Puffs as instructed every 4 hours as needed for Wheezing/Shortness of Breath. cholecalciferol(VITAMIN D 1,000 UNIT TAB) Takes 2 daily CENTRUM 27 MG-0.4 MG TAB Take one(1) tablet daily. ASPIRIN 81 MG TAB Take one (1) tablet daily . FOLIC ACID 1MG TABLET Take one (1) tablet daily. No current facility-administered medications for this visit. ALLERGIES: ALLERGIES Allergen Reactions - Herbal Drugs - Vasotec [Enalapril * coughing - Zocor [Simvastatin] increase of liver enzymes VITALS: BP 142/60 Pulse (!) 59 Temp 37.2 ?C (99 ?F) (Left Tympanic) Resp 18 Wt 91.9 kg (202 lb 9.6 oz) SpO2 95% BMI 37.06 kg/m? PHYSICAL EXAM: GEN: mildly ill appearing HEENT: PERRL, EOMI, left eyelid droop, conjunctiva clear Ears: canals clear, TMs without erythema, bulge, or effusion Sinuses: non-tender frontal sinus, non-tender maxillary sinuses Throat: moist mucous membranes, no erythema, no exudate Neck: supple, no thyromegaly, no lymphadenopathy HEART: slow rate regular rhythm, no murmurs LUNGS: clear to auscultation, no wheezes or crackles, no increased WOB, wheezy cough ASSESSMENT/PLAN: 1. Cough - ICD9: 786.2, ICD10: R05 (primary diagnosis) - DOXYCYCLINE MONOHYDRATE 100 MG CAPSULE 2. Acute non-recurrent sinusitis, unspecified location - ICD9: 461.9, ICD10: J01.90 - DOXYCYCLINE MONOHYDRATE 100 MG CAPSULE Follow up with PCP or cardiology facilitated to evaluate near syncope spells. She will check her sugar the next episode. Anson Ortiz MD CNOV Observed: 03/13/2018 Status: COMPLETED Source: [place] 9:45 AM [facility] REPOSITORY Office Visit (WSTR) REY GUY ([id number]) 1940 F NFR Date Time Provider Department 03/13/18 9:45 AM ANSON ORTIZ [facility] During your visit today, we recorded the following information about you: Temperature Pulse Respiration Blood pressure 99 degrees 59/minute 18/minute 142/60 Weight 91.9 kg Anson Ortiz MD 03/13/2018 10:39 AM Signed Patient presents with: Cough Chest Congestion HPI: Feeling sick for a couple weeks. has pneumonia. Feeling run down. Positive symptoms: cough-productive, Wheezing, Sinus pressure, Nasal Congestion, Rhinorrhea, Post nasal drainage, Chills, Negative symptoms: Vomiting, Diarrhea, OTC: coricidin Cold Medicine, cough syrup DM Sometimes her head feels funny, her ears get warm, and faint like she might pass out. Has been happening for 6 months. Usually occurs while sitting. Has not checked her sugar after one of these spells. PAST MEDICAL HISTORY Diagnosis Date - Atrial fibrillation Dr. Fields Ror Engineer - Garcia's palsy Residual left face weakness - Carotid stenosis 01/2015 carotid US [facility] 01/2015 - CKD (chronic kidney disease), stage III Dr. Ortez [employer] Surveillance [employer] [facility] - Diverticulosis of colon (without mention of hemorrhage) - Endometrial polyp 08/2013 - Gout, unspecified - Hyperlipidemia - Hypertension - Internal hemorrhoids without mention of complication - Iron deficiency anemia, unspecified - Obesity, unspecified - AJIT (obstructive sleep apnea) non-compliant with CPAP - Other chronic nonalcoholic liver disease - Stasis dermatitis - Type II or unspecified type diabetes mellitus without mention of complication, not stated as uncontrolled - Vitamin D deficiency MEDICATIONS: Current Outpatient Prescriptions: cloNIDine TTS (CATAPRES-TTS) 0.3 mg/24 hr apply 1 patch every week as directed flecainide (TAMBOCOR) 50 mg tablet take 1 tablet by mouth once daily LANTUS SOLOSTAR U-100 INSULIN 100 unit/mL (3 mL) inpn inject 27 units subcutaneously once daily at bedtime levothyroxine (SYNTHROID) 200 mcg tablet Take 1 tablet by mouth once daily. pravastatin (PRAVACHOL) 40 mg tablet Take 1 tablet by mouth once daily. BD INSULIN PEN NEEDLE UF 31 gauge x /16 ndle USE WITH INSULIN FOUR TIMES DAILY amLODIPine (NORVASC) 10 mg tablet take 1 tablet by mouth once daily allopurinol (ZYLOPRIM) 300 mg tablet take 1 tablet by mouth once daily spironolactone (ALDACTONE) 25 mg tablet take 1/2 tablet by mouth once daily liraglutide (VICTOZA 2-PHYLICIA) 0.6 mg/0.1 mL (18 mg/3 mL) pnij Inject 0.6 mg daily via pen Indications: TYPE 2 DIABETES MELLITUS Insulin Lispro, Human, (HUMALOG KWIKPEN) 100 unit/mL inpn Take 10 units with breakfast, 10 unit lunch, and 10 units supper warfarin (COUMADIN) 4 mg tablet Take 1 tablet by mouth once daily. Or as directed metoprolol succinate ER (TOPROL XL) 100 mg Tb24 take 1 tablet by mouth once daily blood sugar diagnostic (eDiets.com ULTRA TEST) test strip check blood sugars 4 times daily warfarin (COUMADIN) 5 mg tablet HOLD albuterol HFA (PROVENTIL HFA, VENTOLIN HFA) 90 mcg/actuation inhaler Inhale 2 Puffs as instructed every 4 hours as needed. Insulin Lispro, Human, (HUMALOG KWIKPEN) 100 unit/mL inpn use 5 units with breakfast, 7 units with lunch and 10 units with supper furosemide (LASIX) 40 mg tablet Take 1 tablet by mouth twice daily. albuterol HFA 90 mcg/actuation inhaler Inhale 2 Puffs as instructed every 4 hours as needed for Wheezing/Shortness of Breath. cholecalciferol(VITAMIN D 1,000 UNIT TAB) Takes 2 daily CENTRUM 27 MG-0.4 MG TAB Take one(1) tablet daily. ASPIRIN 81 MG TAB Take one (1) tablet daily . FOLIC ACID 1MG TABLET Take one (1) tablet daily. No current facility-administered medications for this visit. ALLERGIES: ALLERGIES Allergen Reactions - Herbal Drugs - Vasotec [Enalapril * coughing - Zocor [Simvastatin] increase of liver enzymes VITALS: BP 142/60 Pulse (!) 59 Temp 37.2 ?C (99 ?F) (Left Tympanic) Resp 18 Wt 91.9 kg (202 lb 9.6 oz) SpO2 95% BMI 37.06 kg/m? PHYSICAL EXAM: GEN: mildly ill appearing HEENT: PERRL, EOMI, left eyelid droop, conjunctiva clear Ears: canals clear, TMs without erythema, bulge, or effusion Sinuses: non-tender frontal sinus, non-tender maxillary sinuses Throat: moist mucous membranes, no erythema, no exudate Neck: supple, no thyromegaly, no lymphadenopathy HEART: slow rate regular rhythm, no murmurs LUNGS: clear to auscultation, no wheezes or crackles, no increased WOB, wheezy cough ASSESSMENT/PLAN: 1. Cough - ICD9: 786.2, ICD10: R05 (primary diagnosis) - DOXYCYCLINE MONOHYDRATE 100 MG CAPSULE 2. Acute non-recurrent sinusitis, unspecified location - ICD9: 461.9, ICD10: J01.90 - DOXYCYCLINE MONOHYDRATE 100 MG CAPSULE Follow up with PCP or cardiology facilitated to evaluate near syncope spells. She will check her sugar the next episode. Anson Ortiz MD Referring Provider: SELF [[id number]] Allergies As of Date: 03/13/2018 Noted Allergy Reaction HERBAL DRUGS 08/31/2004 VASOTEC (ENALAPRIL MALEATE) 07/26/2005 Comments: coughing ZOCOR (SIMVASTATIN) 08/31/2004 Comments: increase of liver enzymes Date Reviewed: 03/13/2018 Reviewed by: Bel Sanchez Ma - Fully Assessed Reason for Visit: Cough [28] Chest Congestion [236] Primary Visit Diagnosis:Cough [R05] Other Visit Diagnosis:Acute non-recurrent sinusitis, unspecified location [J01.90] Order(s):doxycycline monohydrate (MONODOX) 100 mg capsuleTake 1 capsule by mouth twice daily for 7 days.Disp: 14 capsuleRfl: 0 Prescriptions as of 03/13/2018 Sig: CLONIDINE 0.3 MG/24 HR WEEKLY* apply 1 patch every week as d* FLECAINIDE 50 MG TABLET take 1 tablet by mouth once d* LANTUS SOLOSTAR U-100 INSULIN* inject 27 units subcutaneousl* LEVOTHYROXINE 200 MCG TABLET Take 1 tablet by mouth once d* PRAVASTATIN 40 MG TABLET Take 1 tablet by mouth once d* BD ULTRA-FINE SHORT PEN NEEDL* USE WITH INSULIN FOUR TIMES D* AMLODIPINE 10 MG TABLET take 1 tablet by mouth once d* ALLOPURINOL 300 MG TABLET take 1 tablet by mouth once d* SPIRONOLACTONE 25 MG TABLET take 1/2 tablet by mouth once* LIRAGLUTIDE 0.6 MG/0.1 ML (18* Inject 0.6 mg daily via pen * INSULIN LISPRO (U-100) 100 UN* Take 10 units with breakfast,* WARFARIN 4 MG TABLET Take 1 tablet by mouth once d* METOPROLOL SUCCINATE ER 100 M* take 1 tablet by mouth once d* BLOOD SUGAR DIAGNOSTIC STRIPS check blood sugars 4 times d* WARFARIN 5 MG TABLET HOLD ALBUTEROL SULFATE HFA 90 MCG/* Inhale 2 Puffs as instructed * INSULIN LISPRO (U-100) 100 UN* use 5 units with breakfast, 7* FUROSEMIDE 40 MG TABLET Take 1 tablet by mouth twice * ALBUTEROL SULFATE HFA 90 MCG/* Inhale 2 Puffs as instructed * VITAMIN D3 1,000 UNIT TABLET Takes 2 daily CENTRUM 0.4 MG-162 MG-18 MG T* Take one(1) tablet daily. ASPIRIN 81 MG TABLET Take one (1) tablet daily . FOLIC ACID 1 MG TABLET Take one (1) tablet daily. 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 Fatty liver [K76.0] INVALID FOR* CKD (chronic kidney disease) stage 3, GFR 30-59*INVALID FOR* Edema [R60.9] INVALID FOR* Stasis dermatitis [I87.2] INVALID FOR* Carotid stenosis [I65.29] More... CKD (chronic kidney disease), stage III [N18.3] 01/09/2018 More... Prescriptions ordered this encounter Disp Refills Start End DOXYCYCLINE MONOHYDRATE 100 MG CAPSU* 14 c* 0 03/13/2018 03/20/2018 Route: ORAL Sig: Take 1 capsule by mouth twice daily for 7 days. Disposition: Return in about 1 week (around 03/20/2018) for near syncope. Follow-up and Disposition History Recorded Encounter Status:Closed by ANSON ORTIZ MD on 03/13/18 PROGRESS Observed: 03/04/2018 Status: COMPLETED Source: [place] 12:13 PM [facility] REPOSITORY HNO ID: [id number] Author: Marcelino Moon Service: (none) Author Type: Physician Type: Progress Notes Filed: 03/04/2018 1:59 PM Note Text: Agree with below Marcelino Moon DO PROGRESS Observed: 03/04/2018 Status: COMPLETED Source: [place] 11:49 AM [facility] REPOSITORY HNO ID: [id number] Author: Digna Segovia RN Service: (none) Author Type: (none) Type: Progress Notes Filed: 03/04/2018 11:50 AM Note Text: patient had inr completed at [facility] patients inr is 2.2 (patients inr range is 2.0-3.0) patient is currently taking 6mg Wed and 4mg all other days patients last dose change was on 08/27/18 due to a high level of 3.7 (dose at that time ws 6mg Mon,Wed and 4mg all other days) patient has had no changes in medication and no missed doses and no change in diet Advised patient to continue on the same dose(s) and that they would only be contacted regarding dosage and follow up instructions after review with provider, if a change is needed. Written instructions given and patient verbalized understanding. Presently scheduled in 4 weeks (04/01/18) for follow up INR. PROGRESS Observed: 03/01/2018 Status: COMPLETED Source: [place] 12:57 PM [facility] REPOSITORY HNO ID: [id number] Author: aMrcelino Moon Service: (none) Author Type: Physician Type: Progress Notes Filed: 03/13/2018 12:46 PM Note Text: Noted Marcelino Lisa DO Red PROGRESS Observed: 02/28/2018 Status: COMPLETED Source: [place] 11:10 AM [facility] REPOSITORY HNO ID: [id number] Author: Davian Suresh (Rn) Service: (none) Author Type: Registered Nurse Type: Progress Notes Filed: 03/13/2018 12:46 PM Note Text: PRIMARY CARE COORDINATION QUICK NOTE Provider Action/FYI 1. Call from Pt, discussed DM diet Pt reports she doesn't always eat the way she should, encouraged Carb controlled / heart healthy diet with olive and canola oils, nuts to improve Hdl , Pt reports she started [place] Gummies 60 mg, and 2 Fish oil 360 mg recently. 2. Discussed BS testing, notes doesn't always test but it is usually FBS with range 113-230, 3. 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 Pt states her Health goal is to have more energy 5. Discussed reporting new or unusual symptoms early to Pcp/FAMILY EDUCATOR 6. Pt denies needs or concerns Patient identified by name and date . Kerwin Marcelo RN February 28, 2018 11:14 AM PROGRESS Observed: 02/28/2018 Status: COMPLETED Source: [place] 10:58 AM [facility] REPOSITORY HNO ID: [id number] Author: Cathleen Cornell RN Service: (none) Author Type: (none) Type: Progress Notes Filed: 03/13/2018 12:46 PM Note Text: Patient returned call. Transferred call to Press Hand SupervisorKerwin. Cathleen Cornell RN PROGRESS Observed: 02/27/2018 Status: COMPLETED Source: [place] 12:36 PM [facility] REPOSITORY HNO ID: [id number] Author: Davian Suresh (Rn) Service: (none) Author Type: Registered Nurse Type: Progress Notes Filed: 03/13/2018 12:46 PM Note Text: PRIMARY CARE COORDINATION FOLLOW-UP NOTE Provider Action/FYI Tct Pt left a vm For Pt to discuss DM f/u education. Patient identified by name and date of . YES Press Hand Supervisor plan for next outreach: Instruct on DM Diet modifications, Carb controlled, heart Healthy Health Education and promotion of wellness Early symptom awareness, prevent complications and hospitalization Assist Pt to set Health Goals Lv Marcelo RN February 27, 2018 CNPTOUTREAGIULIANO Observed: 02/27/2018 Status: COMPLETED Source: [place] 12:00 AM [facility] REPOSITORY Patient Outreach (FAMPWS) REY GUY ([id number]) 1940 F NFR Date Time Provider Department 02/27/18 DAVIAN SURESH (RN) FAMPWS During your visit today, we recorded the following information about you: Kerwin Marcelo RN 03/13/2018 12:46 PM Signed PRIMARY CARE COORDINATION FOLLOW-UP NOTE Provider Action/FYI Tct Pt left a vm For Pt to discuss DM f/u education. Patient identified by name and date of . YES Press Hand Supervisor plan for next outreach: Instruct on DM Diet modifications, Carb controlled, heart Healthy Health Education and promotion of wellness Early symptom awareness, prevent complications and hospitalization Assist Pt to set Health Goals Lv Marcelo RN February 27, 2018 Cathleen Cornell RN 03/13/2018 12:46 PM Signed Patient returned call. Transferred call to Press Hand SupervisorKerwin Guzman. Cathleen Marcelo RN 03/13/2018 12:46 PM Signed PRIMARY CARE COORDINATION QUICK NOTE Provider Action/FYI 1. Call from Pt, discussed DM diet Pt reports she doesn't always eat the way she should, encouraged Carb controlled / heart healthy diet with olive and canola oils, nuts to improve Hdl , Pt reports she started [place] Gummies 60 mg, and 2 Fish oil 360 mg recently. 2. Discussed BS testing, notes doesn't always test but it is usually FBS with range 113-230, 3. 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 Pt states her Health goal is to have more energy 5. Discussed reporting new or unusual symptoms early to Pcp/FAMILY EDUCATOR 6. Pt denies needs or concerns Patient identified by name and date . 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 Chronic Care [3612] Cmt: DM Reason For Visit History Recorded Prescriptions as of 02/27/2018 Sig: FLECAINIDE 50 MG TABLET take 1 tablet by mouth once d* LANTUS SOLOSTAR U-100 INSULIN* inject 27 units subcutaneousl* LEVOTHYROXINE 200 MCG TABLET Take 1 tablet by mouth once d* PRAVASTATIN 40 MG TABLET Take 1 tablet by mouth once d* X CLONIDINE 0.3 MG/24 HR WEEKLY* Apply 1 Patch as directed onc* BD ULTRA-FINE SHORT PEN NEEDL* USE WITH INSULIN FOUR TIMES D* AMLODIPINE 10 MG TABLET take 1 tablet by mouth once d* ALLOPURINOL 300 MG TABLET take 1 tablet by mouth once d* SPIRONOLACTONE 25 MG TABLET take 1/2 tablet by mouth once* LIRAGLUTIDE 0.6 MG/0.1 ML (18* Inject 0.6 mg daily via pen * INSULIN LISPRO (U-100) 100 UN* Take 10 units with breakfast,* WARFARIN 4 MG TABLET Take 1 tablet by mouth once d* METOPROLOL SUCCINATE ER 100 M* take 1 tablet by mouth once d* BLOOD SUGAR DIAGNOSTIC STRIPS check blood sugars 4 times d* WARFARIN 5 MG TABLET HOLD ALBUTEROL SULFATE HFA 90 MCG/* Inhale 2 Puffs as instructed * INSULIN LISPRO (U-100) 100 UN* use 5 units with breakfast, 7* FUROSEMIDE 40 MG TABLET Take 1 tablet by mouth twice * ALBUTEROL SULFATE HFA 90 MCG/* Inhale 2 Puffs as instructed * VITAMIN D3 1,000 UNIT TABLET Takes 2 daily CENTRUM 0.4 MG-162 MG-18 MG T* Take one(1) tablet daily. ASPIRIN 81 MG TABLET Take one (1) tablet daily . FOLIC ACID 1 MG TABLET Take one (1) tablet daily. 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 Fatty liver [K76.0] INVALID FOR* CKD (chronic kidney disease) stage 3, GFR 30-59*INVALID FOR* Edema [R60.9] INVALID FOR* Stasis dermatitis [I87.2] INVALID FOR* Carotid stenosis [I65.29] More... CKD (chronic kidney disease), stage III [N18.3] 01/09/2018 More... Encounter Status:Closed by KERWIN MARCELO on 03/13/18 PROGRESS Observed: 02/18/2018 Status: COMPLETED Source: [place] 12:11 PM [facility] REPOSITORY HNO ID: [id number] Author: Marcelino Moon Service: (none) Author Type: Physician Type: Progress Notes Filed: 02/18/2018 1:27 PM Note Text: Agree with below Marcelino Moon, PROGRESS Observed: 02/18/2018 Status: COMPLETED Source: [place] 11:43 AM [facility] REPOSITORY HNO ID: [id number] Author: Digna Segovia RN Service: (none) Author Type: (none) Type: Progress Notes Filed: 02/18/2018 11:44 AM Note Text: patient had inr completed at [facility] patients inr is 1.8 (patients inr range is 2.0-3.0) patient is currently taking 6mg Wed and 4mg all other days patients last dose change was on 08/27/17 due to a high level of 3.7 (dose at that time was 6mg Mon,Wed and 4mg all other days) patient has had no changes in medication and no missed doses and no change in diet FYI - patient did have a salad yesterday) Advised patient to continue on the same dose(s) and that they would only be contacted regarding dosage and follow up instructions after review with provider, if a change is needed. Written instructions given and patient verbalized understanding. Presently scheduled in 2 weeks (03/04/18) for follow up INR since level is slightly low but most likely caused by diet yesterday PROGRESS Observed: 01/21/2018 Status: COMPLETED Source: [place] 11:46 AM [facility] REPOSITORY HNO ID: [id number] Author: Marcelino Moon Service: (none) Author Type: Physician Type: Progress Notes Filed: 01/21/2018 12:44 PM Note Text: Agree with below Marcelino Moon, PROGRESS Observed: 01/21/2018 Status: COMPLETED Source: [place] 11:05 AM [facility] REPOSITORY HNO ID: [id number] Author: Digna Segovia RN Service: (none) Author Type: (none) Type: Progress Notes Filed: 01/21/2018 11:06 AM Note Text: patient had inr completed at [facility] patients inr is 2.7 (patients inr range is 2.0-3.0) patient is currently taking 6mg Wed and 4mg all other days patients last dose change was on 08/27/17 due to a high level of 3.7 (dose at that time was 6mg Mon,Wed and 4mg all other days) patient has had no changes in medication and no missed doses and no change in diet Advised patient to continue on the same dose(s) and that they would only be contacted regarding dosage and follow up instructions after review with provider, if a change is needed. Written instructions given and patient verbalized understanding. Presently scheduled in 4 weeks (02/18/18) for follow up INR. CBC AND DIFFERENTIAL Collected: 01/09/2018 Status: F Source: [place] 1:12 PM [facility] REPOSITORY TYPE CODE TESTS RESULT OUT OF REFERENCE UNITS RANGE LAB WBC 3.70-11.00 k/uL WBC High 11.91 LAB RBC 3.90-5.20 m/uL RBC 4.39 LAB HGB 11.5-15.5 g/dL Hemoglobin 12.8 LAB HCT 36.0-46.0 % Hematocrit 40.4 LAB MCV 80.0-100.0 fL MCV 92.0 LAB MCH 26.0-34.0 pG MCH 29.2 LAB MCHC 30.5-36.0 g/dL MCHC 31.7 LAB RDWCV 11.5-15.0 % RDW-CV High 15.3 LAB PLTCT 150-400 k/uL Platelet Count 282 LAB MPV 9.0-12.7 fL MPV 12.7 LAB ANEUT % Neut% 58.3 LAB AANEUT 1.45-7.50 k/uL Abs Neut 6.95 LAB ALYMP % Lymph% 29.6 LAB AALYMP 1.00-4.00 k/uL Abs Lymph 3.52 LAB AMONO % Carolina% 7.1 LAB AAMONO <0.87 k/uL Abs [place] 0.84 LAB AEOS % Eosin% 4.5 LAB AAEOS <0.46 k/uL Abs High Eosin 0.54 LAB ABASO % Baso% 0.5 LAB AABASO <0.11 k/uL Abs Baso 0.06 LAB AUNRBC 0 /100 WBC NRBCs 0.0 LAB ABNRBC <0.01 k/uL Absolute nRBC <0.01 LAB DTYP DTYPE Auto Diff Performed By: #### CBCDIF, VITD, CMP, LIPB, TSH, HBA1C #### [facility] [address], [place] [address] VITAMIN D 25 HYDROXY Collected: 01/09/2018 Status: F Source: [place] 1:12 PM [facility] REPOSITORY TYPE CODE TESTS RESULT OUT OF REFERENCE UNITS RANGE LAB VITD 31.0-80.0 ng/mL Vitamin D 25 47.5 Hydroxy Result Comment: Classification of 25 [place] Vitamin D status: Insufficiency/Moderate Deficiency: < or = 30 ng/mL Sufficiency/Optimal Levels: 31 to 80 ng/mL Toxicity: > 100 ng/mL Test performed by chemiluminescent immunoassay. Performed By: #### CBCDIF, VITD, CMP, LIPB, TSH, HBA1C #### [facility] [address] [place], [place] [address] COMP METABOLIC PANEL Collected: 01/09/2018 Status: F Source: [place] 1:12 PM [facility] REPOSITORY TYPE CODE TESTS RESULT OUT OF REFERENCE UNITS RANGE LAB TP 6.3-8.0 g/dL Protein, High Total 8.4 LAB ALB 3.9-4.9 g/dL Albumin 4.1 LAB CA 8.5-10.2 mg/dL Calcium, Total 9.7 LAB TBIL 0.2-1.3 mg/dL Bilirubin, Total 0.4 LAB ALKP 32-117 U/L Alkaline High Phosphatase 142 LAB AST 13-35 U/L AST 33 LAB GLU 74-99 mg/dL Glucose High 151 Result Comment: The [place] [employer] (ADA) provides guidance for cutoff values for fasting glucose and random glucose. The ADA defines fasting as no caloric intake for at least 8 hours. Fas ting plasma glucose results between 100 to 125 mg/dL indicate increased risk for diabetes (prediabetes). Fasting plasma glucose results greater than or equal to 126 mg/dL meet the criteria for diagnosis of diabetes. In the absence of unequivocal hyperglycemia, results should be confirmed by repeat testing. In a patient with classic symptoms of hyperglycemia or hyperglycemic crisis, random plasma glucose results greater than or equal to 200 mg/dL meet the criteria for diagnosis of diabetes. Reference: Standards of Medical Care in Diabetes 2016, [place] [employer]. Diabetes Care. 2016.39(Suppl 1). LAB BUN 7-21 mg/dL BUN High 42 LAB CRET 0.58-0.96 mg/dL Creatinine High 1.45 LAB NA 136-144 mmol/L Low Sodium 134 LAB K 3.7-5.1 mmol/L Potassium 4.7 LAB CL 97-105 mmol/L Chloride 98 LAB CO2 22-30 mmol/L Low CO2 18 LAB AGAP 9-18 mmol/L Anion Gap 18 LAB ALT 7-38 U/L ALT 34 LAB GFRAA eGFR- Amer. 42 LAB GFRNAA . eGFR-All Other Races 35 Result Comment: eGFR (Estimated GFR) Units of measure: mL/min/1.73 meters squared eGFR is derived from the reexpressed MDRD Study equation using the following parameters: serum creatinine, age, gender and race. The creatinine assay has been calibrated to be traceable to IDMS. An eGFR <60 mL/min/1.73m2 for >3 months is consistent with chronic kidney disease. Refer to KDOQI guidelines for clinical interpretation. In patients with unstable renal function, e.g. those with acute kidney injury, the eGFR may not accurately reflect actual GFR. Performed By: #### CBCDIF, VITD, CMP, LIPB, TSH, HBA1C #### [facility] [address] [place], [place] [address] LIPID PANEL, BASIC Collected: 01/09/2018 Status: F Source: [place] 1:12 PM [facility] REPOSITORY TYPE CODE TESTS RESULT OUT OF REFERENCE UNITS RANGE LAB CHOL <200 mg/dL Cholesterol 144 Result Comment: <200 mg/dL, Desirable 200-239 mg/dL, Borderline high >239 mg/dL, High LAB TRIGLY <150 mg/dL Triglyceride High 159 Result Comment: <150 mg/dL, Normal 150-199 mg/dL, Borderline high 200-499 mg/dL, High >499 mg/dL, Very high LAB HDL >39 mg/dL HDL-Cholesterol Low 35 Result Comment: 40-59 mg/dL, Acceptable >59 mg/dL, High: Negative risk factor for coronary heart disease <40 mg/dL, Low: Positive risk factor for coronary heart disease LAB LDL <100 mg/dL LDL-Cholesterol 77 Result Comment: <100 mg/dL, Optimal 100-129 mg/dL, Near optimal/above optimal 130-159 mg/dL, Borderline high 160-189 mg/dL, High >189 mg/dL, Very high Secondary prevention optimal LDL Cholesterol levels are recommended to be < 70 mg/dL LAB NONHDL <130 mg/dL Non HDL Cholesterol 109 Result Comment: <130 mg/dL, Optimal 130-159 mg/dL, Near optimal/above optimal 160-189 mg/dL, Borderline high 190-219 mg/dL, High >219 mg/dL, Very high Secondary prevention optimal non HDL Cholesterol levels are recommended to be < 100 mg/dL LAB FT hrs Fasting Time 4 LAB VLDL <30 mg/dL High VLDL Cholesterol 32 LAB TCHDL <5.10 TC:HDL Ratio 4.11 LAB LDLHDL <2.54 LDL:HDL Ratio 2.20 Result Comment: Reference: 1. National Cholesterol Education Program ATP III Guideline At-A-Glance Quick Desk Reference: National Heart, Lung, and Blood [place]. National Institutes of Health. 2001: NIH Publication No. 01-3305. 2. An International Atherosclerosis Society position paper: global recommendations for the management of dyslipidemia: executive summary, Atherosclerosis. 2014: 232(2):410-413. Performed By: #### CBCDIF, VITD, CMP, LIPB, TSH, HBA1C #### [facility] [address] [place] [address] TSH Collected: 01/09/2018 Status: F Source: [place] 1:12 PM [facility] REPOSITORY TYPE CODE TESTS RESULT OUT OF RANGE REFERENCE UNITS LAB TSH 0.400-5.500 uU/mL High TSH 5.550 Performed By: #### CBCDIF, VITD, CMP, LIPB, TSH, HBA1C #### [facility] [address] [place] [address] HEMOGLOBIN A1C Collected: 01/09/2018 Status: F Source: [place] 1:12 PM [facility] REPOSITORY TYPE CODE TESTS RESULT OUT OF REFERENCE UNITS RANGE LAB HGBA1C 4.3-5.6 % High Hemoglobin A1c 7.8 LAB HBA0 mg/dL Est. Average Glucose 177 Result Comment: eAG: (Estimated average glucose) is a calculated value from HgbA1c and is auto claim representative of the average blood glucose level in the last 2-3 month period. Performed By: #### CBCDIF, VITD, CMP, LIPB, TSH, HBA1C #### [facility] [address] [place] [address] PROGRESS Observed: 01/09/2018 Status: COMPLETED Source: [place] 10:47 AM [facility] REPOSITORY HNO ID: [id number] Author: Shantelle Cifuentes Service: (none) Author Type: Nurse Practitioner Type: Progress Notes Filed: 01/09/2018 12:39 PM Note Text: HPI/CC: Rey Guy is a 78 year old female who presents to the office today for review of health conditions. Ms. Guy has past history of diabetes, hyperlipidemia and hypertension. DM: Since our last visit she denies excessive thirst or increased frequency of urination, chest pain or dyspnea , numbness, tingling or pain in extremities, new or unusual visual symptoms, low sugar/hypoglycemic reactions and lightheadedness/dizziness. Follows a diabetic diet generally not very much. She is compliant with medication(s) and is tolerating med(s) without any side effects. She reports checking her glucose occasionally. States not as much as I should Patient's last HgA1C was Hemoglobin A1C (%) Date Value 07/30/2017 7.6 02/27/2017 7.7 ) Last Ophthalmology exam upcoming appt Last Podiatry exam never Most Recent Immunizations Administered Date(s) Administered Influenza Seasonal - High Dose - Age 65+ 06/11/2017 Influenza Vaccine, Split-Non Spec 06/25/2013 Pneumococcal-13 Vac Conjugate 08/24/2015 Pneumovax 08/31/2009 TD Adult 02/11/2009 Tdap (Age 7+) 03/30/2016 Hyperlipidemia. Current therapy includes pravachol 40 mg. Denies side effects of muscle weakness or achiness. Her most recent lipid panels are reviewed. Cholesterol, Total (mg/dL) Date Value 09/01/2016 115 HDL Cholesterol (mg/dL) Date Value 09/01/2016 26 LDL Cholesterol (mg/dL) Date Value 09/01/2016 62 Triglyceride (mg/dL) Date Value 09/01/2016 135 Hypertension: states that she is feeling well and denies any symptoms referable to elevated blood pressure. Specifically denies headache, chest pain, palpitations, dyspnea, peripheral edema and fatigue. Patient denies any side effects of her medication(s) and is compliant with their regimen. Last 3 Encounter BP Readings: Date: BP: 04/06/2017 120/64 04/04/2017 120/60 12/08/2016 126/60 She watches her diet for sodium, low fat and low cholesterol probably noncomplaint although I cannot elucidate specific history. She does not check BP's generally. Rey denies regular aerobic exercise. Afib: follows with Dr. Fields. On flecainide and Coumadin therapy. REVIEW OF SYSTEMS: as above Reviewed relevant PMHx, PSHx, Social Hx, current medications and allergies. PHYSICAL EXAMINATION: BP 168/76 (BP Site: Left Arm, BP Position: Sitting, BP Cuff Size: Regular Adult) Temp 36.3 ?C (97.4 ?F) (Temporal Artery) Resp 16 Wt 91.2 kg (201 lb) BMI 36.76 kg/m2 General appearance: Well appearing, alert, in no acute distress, well-hydrated, well nourished. Skin: Skin color, texture, turgor normal, no suspicious rashes or lesions Neck: Supple, no adenopathy; thyroid symmetric, normal size, no bruits Lungs: Lungs clear to auscultation. No wheezing, rhonchi, rales Heart: RRR without murmur, gallop, or rubs. No ectopy Extremities: Edema: 1+ slightly pitting Neuro: Gait normal. Reflexes normal and symmetric. Sensation grossly intact. Feet: Shoes and socks removed, No deformities, ulcers, calluses, normal distal pulses, sensitive to 10 gm monofilament and vibratory perception normal ASSESSMENT/PLAN: 1. Uncontrolled type 2 diabetes mellitus with diabetic neuropathy, unspecified whether custodial insulin use (HCC) - ICD9: 250.62, 357.2, ICD10: E11.40, E11.65 (primary diagnosis) Poor adherence to plan of care. The patient is new to me. - Continue current medications - Blood glucose monitoring on a twice a day schedule - Follow up in 3 months, sooner should any other issues arise. - BP goal of <140/90 - LDL goal of <100 - COMP METABOLIC PANEL - CBC + DIFF - HGB A1C 2. Iron deficiency anemia, unspecified iron deficiency anemia type - ICD9: 280.9, ICD10: D50.9 - CBC + DIFF 3. Hyperlipidemia, unspecified hyperlipidemia type - ICD9: 272.4, ICD10: E78.5 - to be determined upon return of lab results - Continue current medication. - Check lipid panel - Encouraged following a low carbohydrate, healthy oil intake diet. - COMP METABOLIC PANEL - lipid panel 4. Acquired hypothyroidism - ICD9: 244.9, ICD10: E03.9 - Instructed patient on importance of taking on an empty stomach either first thing in the morning or at bedtime. - TSH BLD 5. Vitamin D deficiency - ICD9: 268.9, ICD10: E55.9 - VITAMIN D 25 HYDROXY 6. CKD (chronic kidney disease) stage 3, GFR 30-59 ml/min - ICD9: 585.3, ICD10: N18.3 - follow with Dr. Hendrickson - COMP METABOLIC PANEL - CBC + DIFF YUN Plata Observed: 01/09/2018 Status: COMPLETED Source: [place] 10:40 AM [facility] REPOSITORY [facility] REY GUY ([id number]) 1940 F NFR Date Time Provider Department 01/09/18 10:40 AM SHANTEL[facility]IF[facility]ENTES [facility] During your visit today, we recorded the following information about you: Temperature Pulse Respiration Blood pressure 97.4 degrees 56/minute 16/minute 162/68 Weight 91.2 kg Shantelle Cifuentes APRN.CNP 01/09/2018 12:39 PM Signed HPI/CC: Rey Guy is a 78 year old female who presents to the office today for review of health conditions. Ms. Guy has past history of diabetes, hyperlipidemia and hypertension. DM: Since our last visit she denies excessive thirst or increased frequency of urination, chest pain or dyspnea , numbness, tingling or pain in extremities, new or unusual visual symptoms, low sugar/hypoglycemic reactions and lightheadedness/dizziness. Follows a diabetic diet generally not very much. She is compliant with medication(s) and is tolerating med(s) without any side effects. She reports checking her glucose occasionally. States ANDquot;not as much as I shouldANDquot; Patient's last HgA1C was Hemoglobin A1C (%) Date Value 07/30/2017 7.6 02/27/2017 7.7 ) Last Ophthalmology exam upcoming appt Last Podiatry exam never Most Recent Immunizations Administered Date(s) Administered Influenza Seasonal - High Dose - Age 65+ 06/11/2017 Influenza Vaccine, Split-Non Spec 06/25/2013 Pneumococcal-13 Vac Conjugate 08/24/2015 Pneumovax 08/31/2009 TD Adult 02/11/2009 Tdap (Age 7+) 03/30/2016 Hyperlipidemia. Current therapy includes pravachol 40 mg. Denies side effects of muscle weakness or achiness. Her most recent lipid panels are reviewed. Cholesterol, Total (mg/dL) Date Value 09/01/2016 115 HDL Cholesterol (mg/dL) Date Value 09/01/2016 26 LDL Cholesterol (mg/dL) Date Value 09/01/2016 62 Triglyceride (mg/dL) Date Value 09/01/2016 135 Hypertension: states that she is feeling well and denies any symptoms referable to elevated blood pressure. Specifically denies headache, chest pain, palpitations, dyspnea, peripheral edema and fatigue. Patient denies any side effects of her medication(s) and is compliant with their regimen. Last 3 Encounter BP Readings: Date: BP: 04/06/2017 120/64 04/04/2017 120/60 12/08/2016 126/60 She watches her diet for sodium, low fat and low cholesterol probably noncomplaint although I cannot elucidate specific history. She does not check BP's generally. Rey denies regular aerobic exercise. Afib: follows with Dr. Fields. On flecainide and Coumadin therapy. REVIEW OF SYSTEMS: as above Reviewed relevant PMHx, PSHx, Social Hx, current medications and allergies. PHYSICAL EXAMINATION: BP 168/76 (BP Site: Left Arm, BP Position: Sitting, BP Cuff Size: Regular Adult) Temp 36.3 ?C (97.4 ?F) (Temporal Artery) Resp 16 Wt 91.2 kg (201 lb) BMI 36.76 kg/m2 General appearance: Well appearing, alert, in no acute distress, well-hydrated, well nourished. Skin: Skin color, texture, turgor normal, no suspicious rashes or lesions Neck: Supple, no adenopathy; thyroid symmetric, normal size, no bruits Lungs: Lungs clear to auscultation. No wheezing, rhonchi, rales Heart: RRR without murmur, gallop, or rubs. No ectopy Extremities: Edema: 1+ slightly pitting Neuro: Gait normal. Reflexes normal and symmetric. Sensation grossly intact. Feet: Shoes and socks removed, No deformities, ulcers, calluses, normal distal pulses, sensitive to 10 gm monofilament and vibratory perception normal ASSESSMENT/PLAN: 1. Uncontrolled type 2 diabetes mellitus with diabetic neuropathy, unspecified whether custodial insulin use (HCC) - ICD9: 250.62, 357.2, ICD10: E11.40, E11.65 (primary diagnosis) Poor adherence to plan of care. The patient is new to me. - Continue current medications - Blood glucose monitoring on a twice a day schedule - Follow up in 3 months, sooner should any other issues arise. - BP goal of ANDlt;140/90 - LDL goal of ANDlt;100 - COMP METABOLIC PANEL - CBC + DIFF - HGB A1C 2. Iron deficiency anemia, unspecified iron deficiency anemia type - ICD9: 280.9, ICD10: D50.9 - CBC + DIFF 3. Hyperlipidemia, unspecified hyperlipidemia type - ICD9: 272.4, ICD10: E78.5 - to be determined upon return of lab results - Continue current medication. - Check lipid panel - Encouraged following a low carbohydrate, healthy oil intake diet. - COMP METABOLIC PANEL - lipid panel 4. Acquired hypothyroidism - ICD9: 244.9, ICD10: E03.9 - Instructed patient on importance of taking on an empty stomach either first thing in the morning or at bedtime. - TSH BLD 5. Vitamin D deficiency - ICD9: 268.9, ICD10: E55.9 - VITAMIN D 25 HYDROXY 6. CKD (chronic kidney disease) stage 3, GFR 30-59 ml/min - ICD9: 585.3, ICD10: N18.3 - follow with Dr. Hendrickson - COMP METABOLIC PANEL - CBC + DIFF Shantelle Cifuentes APRN.FEATHER TRIMMER Referring Provider: SHANTELLE CIFUENTES ([facility]) [[id number]] Allergies As of Date: 01/09/2018 Noted Allergy Reaction HERBAL DRUGS 08/31/2004 VASOTEC (ENALAPRIL MALEATE) 07/26/2005 Comments: coughing ZOCOR (SIMVASTATIN) 08/31/2004 Comments: increase of liver enzymes Date Reviewed: 01/09/2018 Reviewed by: Shantelle Gonzalez ([facility]) Arsh - Fully Assessed Reason for Visit: Medication Follow-up [270] Primary Visit Diagnosis:Uncontrolled type 2 diabetes mellitus with diabetic neuropathy, unspecified whether custodial insulin use (HCC) [E11.40, E11.65] Other Visit Diagnoses:Iron deficiency anemia, unspecified iron deficiency anemia type [D50.9] Hyperlipidemia, unspecified hyperlipidemia type [E78.5] Acquired hypothyroidism [E03.9] Vitamin D deficiency [E55.9] CKD (chronic kidney disease) stage 3, GFR 30-59 ml/min [N18.3] Order(s):COMP METABOLIC PANEL [SQCMP] Order #: [id number] FUTURE CBC + DIFF [SQCBCDIF] Order #: [id number] FUTURE HGB A1C [WNMFT9T] Order #: [id number] FUTURE TSH BLD [SQTSH] Order #: [id number] FUTURE VITAMIN D 25 HYDROXY [SQVITD] Order #: [id number] FUTURE cloNIDine TTS (CATAPRES-TTS) 0.3 mg/24 hrApply 1 Patch as directed once each week. As DirectedDisp: 4 PatchRfl: 1 LIPID PANEL BASIC [SQLIPB] Order #: [id number] FUTURE Prescriptions as of 01/09/2018 Sig: CLONIDINE 0.3 MG/24 HR WEEKLY* Apply 1 Patch as directed onc* BD INSULIN PEN NEEDLE UF SHOR* USE WITH INSULIN FOUR TIMES D* AMLODIPINE 10 MG TABLET take 1 tablet by mouth once d* PRAVASTATIN 40 MG TABLET take 1/2 tablet by mouth daily ALLOPURINOL 300 MG TABLET take 1 tablet by mouth once d* SPIRONOLACTONE 25 MG TABLET take 1/2 tablet by mouth once* INSULIN GLARGINE (U-100) 100 * 27 units subcutaneously at be* LEVOTHYROXINE 175 MCG TABLET Take 1 tablet by mouth once d* INSULIN LISPRO (U-100) 100 UN* Take 10 units with breakfast,* WARFARIN 4 MG TABLET Take 1 tablet by mouth once d* METOPROLOL SUCCINATE ER 100 M* take 1 tablet by mouth once d* FLECAINIDE 50 MG TABLET Take 1 tablet by mouth once d* BLOOD SUGAR DIAGNOSTIC STRIPS check blood sugars 4 times d* WARFARIN 5 MG TABLET HOLD ALBUTEROL SULFATE HFA 90 MCG/* Inhale 2 Puffs as instructed * FUROSEMIDE 40 MG TABLET Take 1 tablet by mouth twice * ALBUTEROL SULFATE HFA 90 MCG/* Inhale 2 Puffs as instructed * VITAMIN D3 1,000 UNIT TABLET Takes 2 daily CENTRUM 0.4 MG-162 MG-18 MG T* Take one(1) tablet daily. ASPIRIN 81 MG TABLET Take one (1) tablet daily . FOLIC ACID 1 MG TABLET Take one (1) tablet daily. LIRAGLUTIDE 0.6 MG/0.1 ML (18* Inject 0.6 mg daily via pen * INSULIN LISPRO (U-100) 100 UN* use 5 units with breakfast, 7* Medication notes this encounter WARFARIN 4 MG TABLET >> Sophia Handley LPN 01/09/2018 10:44 AM >> SOPHIA HANDLEY LPN SunJan 09, 2018 10:44 AM Take 6mg Wed AND 4mg all other days BLOOD SUGAR DIAGNOSTIC STRIPS >> Sophia Handley [facility] [address] 01/09/2018 10:42 AM >> SOPHIA HANDLEY LPN SunJan 09, 2018 10:42 AM Patient testing blood sugars 0-3x daily. INSULIN LISPRO (U-100) 100 UNIT/ML SUBCUTANEOUS PEN >> Sophia Handley [facility] [address] 01/09/2018 10:43 AM >> SOPHIA HANDLEY LPN SunJan 09, 2018 10:43 AM Duplicate Problem List As Of Date 01/09/2018 Noted Resolved IRON DEFIC ANEMIA NOS [D50.9] 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 Fatty liver [K76.0] INVALID FOR* CKD (chronic kidney disease) stage 3, GFR 30-59*INVALID FOR* Edema [R60.9] INVALID FOR* Stasis dermatitis [I87.2] INVALID FOR* Carotid stenosis [I65.29] More... CKD (chronic kidney disease), stage III [N18.3] 01/09/2018 More... Prescriptions ordered this encounter Disp Refills Start End CLONIDINE 0.3 MG/24 HR WEEKLY TRANSD* 4 Pa* 1 01/09/2018 Route: TRANSDERM. Sig: Apply 1 Patch as directed once each week. As Directed Medications Discontinued During This Encounter cloNIDine TTS (CATAPRES-TTS) 0.3 mg/* 4 Pa* 1 10/31/2017 01/09/2018 Sig: apply 1 patch every week as directed Disc: Reason for discontinue is not on file. Encounter Status:Closed by SHANTELLE CIFUENTES CNP on 01/09/18 PROGRESS Observed: 01/07/2018 Status: COMPLETED Source: [place] 4:29 PM [facility] REPOSITORY HNO ID: [id number] Author: Digna Segovia RN Service: (none) Author Type: (none) Type: Progress Notes Filed: 01/07/2018 4:29 PM Note Text: PATIENT NOTIFIED OF INFORMATION PROGRESS Observed: 01/07/2018 Status: COMPLETED Source: [place] 12:11 PM [facility] REPOSITORY HNO ID: [id number] Author: Marcelino Moon Service: (none) Author Type: Physician Type: Progress Notes Filed: 01/07/2018 4:29 PM Note Text: Continue same dose, recheck INR 2 weeks Marcelino Moon DO PROGRESS Observed: 01/07/2018 Status: COMPLETED Source: [place] 11:45 AM [facility] REPOSITORY HNO ID: [id number] Author: Digna Segovia RN Service: (none) Author Type: (none) Type: Progress Notes Filed: 01/07/2018 11:47 AM Note Text: patient had inr completed at [facility] patients inr is 1.8 (patients inr range is 2.0-3.0) patient is currently taking 6mg Wed and 4mg all other days patients last dose change was on 08/27/17 due to a high level of 3.7 (dose at that time was 6mg Mon,Wed and 4mg all other days) patient has had no changes in medication and does not recall missing any doses and no change in diet Advised patient that they would be contacted regarding medication dose and when to follow up after information is reviewed by provider. After provider review please contact the patient with information and schedule follow up appointment with coumadin clinic. FYI - patient has been scheduled for a 2 week follow up inr on 01/21/18 PROGRESS Observed: 12/10/2017 Status: COMPLETED Source: [place] 11:07 AM [facility] REPOSITORY HNO ID: [id number] Author: Marcelino Moon Service: (none) Author Type: Physician Type: Progress Notes Filed: 12/10/2017 1:09 PM Note Text: Agree with below Marcelino Moon DO PROGRESS Observed: 12/10/2017 Status: COMPLETED Source: [place] 11:00 AM [facility] REPOSITORY HNO ID: [id number] Author: Digna Segovia RN Service: (none) Author Type: (none) Type: Progress Notes Filed: 12/10/2017 11:01 AM Note Text: patient had inr completed at [facility] patients inr is 2.2 (patients inr range is 2.0-3.0) patient is currently taking 6mg Wed and 4mg all other days patients last dose change was on 08/27/17 due to a high level of 3.7 (dose at that time was 6mg Mon,Wed and 4mg all other days) patient has had no changes in medication and no missed doses and no change in diet Advised patient to continue on the same dose(s) and that they would only be contacted regarding dosage and follow up instructions after review with provider, if a change is needed. Written instructions given and patient verbalized understanding. Presently scheduled in 4 weeks (01/07/18) for follow up INR. PROGRESS Observed: 11/12/2017 Status: COMPLETED Source: [place] 12:51 PM [facility] REPOSITORY HNO ID: [id number] Author: Marcelino Moon Service: (none) Author Type: Physician Type: Progress Notes Filed: 11/12/2017 4:35 PM Note Text: Agree with below Marcelino Moon, PROGRESS Observed: 11/12/2017 Status: COMPLETED Source: [place] 12:43 PM [facility] REPOSITORY HNO ID: [id number] Author: Digna Segovia RN Service: (none) Author Type: (none) Type: Progress Notes Filed: 11/12/2017 12:44 PM Note Text: patient had inr completed at [facility] patients inr is 2.5 (patients inr range is 2.0-3.0) patient is currently taking 6mg Wed and 4mg all other days patients last dose change was on 08/27/17 due to a high level of 3.7 (dose at that time ws 6mg Mon,Wed and 4mg all other days) patient has had no changes in medication and no change in diet Advised patient to continue on the same dose(s) and that they would only be contacted regarding dosage and follow up instructions after review with provider, if a change is needed. Written instructions given and patient verbalized understanding. Presently scheduled in 4 weeks (12/10/17) for follow up INR. ALLERGIES ALLERGIES DATE TYPE / CODE NAME / CODE REACTION SEVERITY SOURCE 10/25/2018 Drug enalapril cough Unknown [place] Allergy/416 maleate/[id number]( [place] [id number]([facility] ED CT) Repository 10/25/2018 Drug enalaprilat cough Unknown [place] Allergy/416 dihydrate/[id number] [place] [id number]([facility] ED ED CT) Repository 10/25/2018 Drug atorvastatin cough Unknown [place] Allergy/416 calcium/[id number]( [place] [id number]([facility] ED CT) Repository 07/26/2005 DRUG ENALAPRIL MALEATE [facility] INGREDI/[address] [place] [id number]([facility] Repository ED CT) 08/31/2004 DRUG HERBAL DRUGS [facility] INGREDI/[address] [place] [id number]([facility] Repository ED CT) 08/31/2004 DRUG SIMVASTATIN [facility] INGREDI/[address] [place] [id number]([facility] Repository ED CT) NG/[id number] HERBAL DRUGS [facility] 6(DNA13 CT) Repository NG/[id number] ENALAPRIL MALEATE [facility] 6(DNA13 CT) Repository NG/[id number] SIMVASTATIN [facility] 6(DNA13 CT) Repository ENCOUNTERS ENCOUNTERS ADMIT/DISCHARGE ACCOUNT NUMBER ADMITTING ENCOUNTER LOCATION SOURCE CLASS 10/28/2018 [id number] Ambulatory BMSBuilding: [place] BMS.CF.[facility] Repository 10/28/2018 [id number] Ambulatory [facility] ding:PSN Repository 10/28/2018 [id number] Ambulatory [facility] ding:PCURoom Repository : [id number]: 1 10/25/2018/10/25/19 [id number] Ambulatory BMSBuilding: [place] 19 BMS.[facility] Repository 10/23/2018 [id number] Ambulatory [facility] ding:LABSPEC Repository 10/23/2018/10/23/19 [id number] Ambulatory BMSBuilding: Judith 19 BMS.[facility] Repository 10/22/2018 [id number] Ambulatory BMSBuilding: Judith BMS.[facility] Repository 10/09/2018/10/10/19 [id number] Ambulatory [address] Repository 10/07/2018 [id number] Ambulatory [facility] ding:CVS Repository 10/04/2018/10/07/19 [id number] White, Kayla Inpatient Judith Judith 19 [facility] ding:PCURoom Repository : BVV278Kcn: 1 10/04/2018 [id number] White, Kayla Ambulatory BMSBuilding: [place] BMS.[facility] Repository 10/04/2018 [id number] White, Kayla Ambulatory BMSBuilding: [place] BMS.CF.[facility] Repository 10/04/2018 [id number] White, Kayla Ambulatory BMSBuilding: [place] BMS.[facility] Repository 10/04/2018 [id number] White, Kayla Ambulatory BMSBuilding: [place] BMS.CF.[facility] Repository 10/04/2018 [id number] White, Kayla Ambulatory BMSBuilding: [place] BMS.[facility] Repository 10/04/2018 [id number] White, Kayla Ambulatory BMSBuilding: [place] BMS.[facility] Repository 10/02/2018/10/02/19 [id number] Emergency [address] ding:ED Repository 10/02/2018/10/03/19 [id number] Ambulatory [address] [place] Repository 09/02/2018/09/03/20 [id number] Ambulatory [address] [place] Repository 08/19/2018/08/20/20 [id number] Ambulatory [address] [place] Repository 08/08/2018/08/09/20 [id number] Ambulatory [address] [place] Repository 08/05/2018 [id number] Ambulatory [facility] ding:LAB.FUT Repository URE 08/02/2018/08/02/20 [id number] Ambulatory [address] [place] Repository 07/15/2018/07/15/20 [id number] Ambulatory [address] [place] Repository 07/11/2018/07/11/20 [id number] Ambulatory [place] [address] [facility] [place] Repository 07/11/2018/07/12/20 [id number] Ambulatory [address] [place] Repository 07/11/2018/07/12/20 [id number] Ambulatory [address] [place] Repository 06/06/2018/06/07/20 [id number] Ambulatory [address] [place] Repository 05/24/2018/05/24/20 [id number] Emergency [address] ding:ED Repository 05/23/2018/05/24/20 [id number] Ambulatory [facility] [place] Repository 05/13/2018/05/14/20 [id number] Ambulatory [facility] [place] Repository 05/06/2018/05/08/20 [id number] Ambulatory [address] [place] Repository 04/11/2018/04/11/20 [id number] Ambulatory [address] [place] Repository 04/11/2018 [id number] Ambulatory [facility] MEDICAL Repository CENTERBuildi ng:CAGWS 04/04/2018/04/04/20 [id number] Ambulatory [facility] [place] Repository 04/01/2018/04/02/20 [id number] Ambulatory [facility] [place] Repository 03/19/2018/03/20/20 [id number] Ambulatory [facility] [place] Repository 03/13/2018/03/14/20 [id number] Ambulatory [address] [place] Repository 03/04/2018/03/04/20 [id number] Ambulatory [facility] [place] Repository 02/18/2018/02/20/20 [id number] Ambulatory [facility] [place] Repository 01/21/2018/01/23/20 [id number] Ambulatory [facility] [place] Repository 01/09/2018/01/10/20 [id number] Ambulatory [address] [place] Repository 01/09/2018/01/11/20 [id number] Ambulatory [address] [place] Repository 01/07/2018/01/09/20 [id number] Ambulatory [address] [place] Repository 12/10/2017/12/12/19 [id number] Ambulatory [address] [place] Repository 11/12/2017/11/13/19 [id number] Ambulatory [address] [place] Repository PAYERS PAYERS ENCOUNTER GUARANTOR PAYER SUBSCRIBER SOURCE 10/28/2018 REY Foy Primary REY Wong [id number] Insurance:MEDICARE CHRISTIANDOB: [facility] PART A [facility] [id number] [place] Number: Repository [address]Cyd: 419 [id number] [phone] () Date:2018-10-24 10/28/2018 Secondary REY Wong [facility] Community Number: [id number] Hospital [id number] Repository Date:7192-75-73BL [address]JJAJGAWLDEB, [place] [address]GZ: 10/28/2018 Tertiary JEY Wong Insurance:[facility]: [facility] [id number] [id number] Hospital Number: Repository [id number] Date:3733-96-25CV [address]ERKUBKK, [place] [address]KJ: 10/28/2018 Tertiary NOT GIVENUNK Judith Insurance:SELF PAY [facility] Number: Effective Repository Date:2018-10-28 10/28/2018 JEY C Primary REY F Judith [id number] Insurance:MEDICARE CHRISTIANDOB: [facility] PART A [facility] [id number] Number: Repository [address]Led: 419 [id number] [phone] () Date:2018-10-21 10/28/2018 Secondary REY F [place] Insurance:CIGNAPolicy [facility]: Community Number: [id number] Hospital [id number] Repository Date:9243-40-80VL [address]FSUVSPUTVIE, [place] [address]IC: 10/28/2018 Tertiary JEY C Judith Insurance:[facility]ITAL[facility]ANDOB: [facility] CARE [id number] Hospital Number: Repository [id number] Date:9843-45-08SL [address]WISG, [place] [address]HY: 10/28/2018 Tertiary NOT GIVENUNK [place] Insurance:SELF PAY [facility] Hospital Number: Effective Repository Date:2018-10-21 10/28/2018 REY F Primary REY F Judith [id number] Insurance:MEDICARE CHRISTIANDOB: [facility] PART A [facility] [id number] City [facility] Number: Repository [address]Qea: 419 [id number] [phone] () Date:2018-10-24 10/28/2018 Secondary REY F [place] Insurance:CIGNAPolicy CHRISTIANDOB: Community Number: [id number] Hospital [id number] Repository Date:1868-96-27EB [address]ODJLRAMEGPD, [place] [address]HW: 10/28/2018 Tertiary JEY C Judith Insurance:[facility] CHRISTIANDOB: [facility] CARE [id number] Hospital Number: Repository [id number] Date:7646-44-68[address]LAQZRRJ, [place] [address]TJ: 10/28/2018 Tertiary NOT GIVENUNK [place] Insurance:SELF PAY [facility] Hospital Number: Effective Repository Date:2018-10-24 10/25/2018 REY F Primary REY F Judith [id number] Insurance:MEDICARE CHRISTIANDOB: [facility] PART A [id number] [place] Number[facility] Repository [address]Bcg: 419 [id number] [phone] () Date:2018-10-24 10/25/2018 Secondary REY F Judith Insurance:CIGNAPolicy CHRISTIANDOB: Community Number: [id number] Hospital [id number] Repository Date:6685-34-86VT [address]PFVQTHBBZDVSPANISH [place], [place] [address]XD: 10/25/2018 Tertiary JEY C [place] Insurance:[facility]: [facility] CARE [id number] [id number] Hospital Number: Repository [id number] Date:6184-47-02KP [address]GNNKFGT, [place] [address]OZ: 10/25/2018 Tertiary NOT GIVENUNK Judith Insurance:SELF PAY [facility] Hospital Number: Effective Repository Date:2018-10-24 10/23/2018 JEY C Primary REY F [place] [id number] Insurance:MEDICARE CHRISTIANDOB: [facility] PART A [facility] [id number] Number: Repository [address]Zcm: 419 [id number] [phone] () Date:2018-10-23 10/23/2018 Secondary REY F [place] Insurance:CIGNAPolicy CHRISTIANDOB: Community Number: [id number] Hospital [id number] Repository Date:1522-76-59BF [address]DIZCUPUGQWE, [place] [address]MZ: 10/23/2018 Tertiary JEY C [place] Insurance:[facility]ITAL[facility]: [facility] CARE [id number] Hospital Number: Repository [id number] Date:6734-36-26WC [facility] 270915FOPSBCZ, [place] [address]QY: 10/23/2018 Tertiary NOT GIVENUNK [place] Insurance:SELF PAY [facility] Hospital Number: Effective Repository Date:2018-10-23 10/23/2018 JEY C Primary REY F [place] [id number] Insurance:MEDICARE CHRISTIANDOB: [facility] PART A [facility] [id number] [facility] Number: Repository [address]Jbm: 419 [id number] [phone] () Date:2018-10-22 10/23/2018 Secondary REY F [place] Insurance:[facility]: [facility] Number: [id number] Hospital [id number] Repository Date:1044-74-16FD [address]SLNIFNHMLZU, [place] [address]AX: 10/23/2018 Tertiary JEY C Judith [facility]: [place] [id number] [id number] Hospital Number: Repository [id number] Date:6331-05-29RF [address]SPVTDPT, [place] [address]YJ: 10/23/2018 Tertiary NOT GIVENUNK [place] Insurance:SELF PAY [facility] Hospital Number: Effective Repository Date:2018-10-23 10/22/2018 JEY C Primary REY F Judith [id number] Insurance:MEDICARE CHRISTIANDOB: [facility] PART A [facility] [id number] City [facility] Number: Repository [address]Qjk: 419 [id number] [phone] () Date:2018-10-22 10/22/2018 Secondary REY F Judith Insurance:CIGNAPolicy CHRISTIANDOB: Community Number: [id number] Hospital [id number] Repository Date:6675-14-06CW [facility] [address]3939ETMDTVCBCUV, [place] [address]WG: 10/22/2018 Tertiary JEY C Judith Insurance:[facility]PITALIANDOB: [facility] CARE [id number] Hospital Number: Repository [id number] Date:8850-86-62WL [facility] 670443FPDWSNH, [place] [address]FN: 10/22/2018 Tertiary NOT GIVENUNK Judith Insurance:SELF PAY [facility] Number: Effective Repository Date:2018-10-22 10/07/2018 JEY C Primary NOT GIVENUNK Judith [id number] Insurance:SELF PAY [place] Number: Effective Repository [phone]: (419) Date:2018-10-07 [phone] () 10/04/2018 JEY C Primary REY F Judith [id number] Insurance:MEDICARE CHRISTIANDOB: [facility] PART A BPolicy [id number] Number: Repository [address]Eph: 419 [id number] [phone] () Date:2018-10-04 10/04/2018 Secondary REY F [place] Insurance:CIGNAPolicy CHRISTIANDOB: Community Number: [id number] Hospital [id number] Repository Date:4237-69-74GR [facility] 0304[address]TVDOUYTMORR, [place] [address]XD: 10/04/2018 Tertiary JEY C Judith Insurance:[facility]ITAL[facility]: [facility] CARE [id number] Hospital Number: Repository [id number] Date:1671-57-08PS [facility] 927627PBWDLJL, [place] [address]HZ: 10/04/2018 Tertiary NOT GIVENUNK Judith Insurance:SELF PAY Community INSURANCEPolicy Hospital Number: Effective Repository Date:2018-10-04 10/04/2018 JEY C Primary REY F Judith [id number] Insurance:MEDICARE CHRISTIANDOB: [facility] PART A [facility] [id number] City [facility] Number: Repository [address]Gnc: 419 [id number] [phone] () Date:2018-10-04 10/04/2018 Secondary REY F Judith Insurance:CIGNAPolicy CHRISTIANDOB: Community Number: [id number] Hospital [id number] Repository Date:7189-88-18QC [address]GWSLCKYBUSH, [place] [address]HH: 10/04/2018 Tertiary JEY C [place] Insurance:[facility] CHRISTIANDOB: [facility] CARE [id number] Hospital Number: Repository [id number] Date:4096-89-99LH [facility] 055979QIULIAZ, [place] [address]YW: 10/04/2018 Tertiary NOT GIVENUNK [place] Insurance:SELF PAY [facility] Hospital Number: Effective Repository Date:2018-10-04 10/04/2018 JEY C Primary REY F [place] [id number] Insurance:MEDICARE CHRISTIANDOB: [facility] PART A [facility] [id number] City Regional [facility] Number: Repository [address]Btb: [phone] [id number] [phone] () Date:2018-10-04 10/04/2018 Secondary REY F [place] Insurance:CIGNAPolicy CHRISTIANDOB: Community Number: [id number] Hospital [id number] Repository Date:4064-89-86WC [address]EAGBIAHWUVV, [place] [address]CC: 10/04/2018 Tertiary JEY C Judith Insurance:UNITED TH CHRISTIANDOB: [facility] CARE [id number] Hospital Number: Repository [id number] Date:2090-97-76CS [address]IFVGIETCOBURN, [place] [address]YY: 10/04/2018 Tertiary NOT GIVENUNK [place] Insurance:SELF PAY [facility] Hospital Number: Effective Repository Date:2018-10-04 10/04/2018 JEY C Primary REY F Judith [id number] Insurance:MEDICARE CHRISTIANDOB: [facility] PART A [facility] [id number] City Regional [facility] Number: Repository [address]Hnk: [phone] [id number] [phone] () Date:2018-10-04 10/04/2018 Secondary REY F [place] Insurance:[facility]IGNAEncompass [facility] Rehabilitation Hospital [facility] Nittany ValleyIANDOB: Community Number: [id number] Hospital [id number] Repository Date:5092-17-31BQ [address]SDAVEWFWHVV, [place] [address]QV: 10/04/2018 Tertiary JEY C [place] Insurance:[facility]PITALIANDOB: [facility] CARE [id number] Hospital Number: Repository [id number] Date:3556-55-85RY [facility] 722239WKCJIZC, [place] [address]QA: 10/04/2018 Tertiary NOT GIVENUNK [place] Insurance:SELF PAY [facility] Hospital Number: Effective Repository Date:2018-10-04 10/04/2018 JEY C Primary REY F [place] [id number] Insurance:MEDICARE CHRISTIANDOB: [facility] PART A [facility] [id number] City Regional [facility] Number: Repository [address]Qta: [phone] [id number] [phone] () Date:2018-10-04 10/04/2018 Secondary REY F [place] Insurance:CIGNAPolicy [facility]: Community Number: [id number] Hospital [id number] Repository Date:3382-28-42OK [address]CNMPJNGLLWW, [place] [address]NK: 10/04/2018 Tertiary JEY C [place] Insurance:UNITED TH CHRISTIANDOB: Community CARE [id number] Hospital Number: Repository [id number] Date:6723-67-29II [address]GEXSZBF, [place] [address]SF: 10/04/2018 Tertiary NOT GIVENUNK [place] Insurance:SELF PAY [facility] Hospital Number: Effective Repository Date:2018-10-04 10/04/2018 JEY C Primary REY F [place] [id number] Insurance:MEDICARE CHRISTIANDOB: [facility] PART A [facility] [id number] City Regional [facility] Number: Repository [address]Dug: [phone] [id number] [phone] (HP) Date:2018-10-04 10/04/2018 Secondary REY F [place] Insurance:[facility]IGNAPage Hospitalicy CHRISTIANDOB: [facility] Number: [id number] Hospital [id number] Repository Date:8100-24-12BM [address] [address]HZ: 10/04/2018 Tertiary JEY C [place] Insurance:[facility]OSPITALIANDOB: Community CARE [id number] Hospital Number: Repository [id number] Date:3427-84-77AO [address]TZTNGKX, [place] [address]LE: 10/04/2018 Tertiary NOT GIVENUNK Judith Insurance:SELF PAY [facility] Hospital Number: Effective Repository Date:2018-10-04 10/04/2018 JEY C Primary REY F [place] [id number] Insurance:MEDICARE CHRISTIANDOB: [facility] PART A [facility] [id number] City Regional [facility] Number: Repository [address]Xdv: ([phone] [id number] [phone] () Date:2018-10-04 10/04/2018 Secondary REY F [place] Insurance:[facility] Hospitalicy CHRISTIANDOB: Community Number: [id number] Hospital [id number] Repository Date:5887-18-48KX [address]AKMVZTAPXRC, [place] [address]CG: 10/04/2018 Tertiary JEY C Judith Insurance:[facility] HOSPITALIANDOB: [facility] CARE [id number] Hospital Number: Repository [id number] Date:3929-30-03KK [facility] 982593GEERDSZ, [place] [address]GF: 10/04/2018 Tertiary NOT GIVENUNK Judith Insurance:SELF PAY [facility] Hospital Number: Effective Repository Date:2018-10-04 10/02/2018 JEY C Primary REY F [place] [id number] Insurance:MEDICARE CHRISTIANDOB: [facility] [id number] Number: Repository [id number]: 419 [id number] [phone] (HP) Date:2018-10-02 10/02/2018 Secondary REY F [place] Insurance:[facility] HospitalIANDOB: Community Number: [id number] Hospital [id number] Repository Date:7746-95-88JQ [address]XWPGFVEDHDL, [place] [address]QK: 10/02/2018 Tertiary JEY C Ujdith Insurance:[facility]: [facility] CARE [id number] Hospital Number: Repository [id number] Date:6540-35-81NG [address]ADMEEWR, [place] [address]KX: 10/02/2018 Tertiary NOT GIVENUNK [place] Insurance:SELF PAY [facility] Hospital Number: Effective Repository Date:2018-10-02 08/05/2018 JEY C Primary REY F Judith [id number] Insurance:MEDICARE CHRISTIANDOB: [facility] [id number] Number: Repository [address]Toe: [phone]) [id number] [phone] (HP) Date:2018-08-05 08/05/2018 Secondary REY F [place] Insurance:[facility]NA[facility] ValleyIANDOB: Community Number: [id number] Hospital [id number] Repository Date:8061-82-73OU [address]YWOLXGBNLPY, [place] [address]WR: 08/05/2018 Tertiary NOT GIVENUNK [place] Insurance:SELF PAY [facility] Number: Effective Repository Date:2018-08-05 05/24/2018 JEY Cortes Primary REY F [place] [id number] Insurance:MEDICARE CHRISTIANDOB: [facility] PART A olic [id number] Number: Repository [address]Yec: [phone] [id number] [phone] (HP) Date:2018-05-24 05/24/2018 Secondary REY F [place] Insurance:CIGNAPolicy CHRISTIANDOB: Community Number: [id number] Hospital [id number] Repository Date:9449-64-23EA [address]JCTDOEPAPEU, [place] [address]TA: 05/24/2018 Tertiary NOT GIVENUNK [place] Insurance:SELF PAY [facility] Number: Effective Repository Date:2018-05-24 04/11/2018 REY F Primary REY F [facility] CHRISTIANDOB: Insurance:MEDICARE A CHRISTIANDOB: Health System [id number] AND BPolicy Number: [id number] [facility] [id number] [place], [place] Date: [address]Rmd: (HP) 04/11/2018 Secondary REY F [facility] Insurance:CIGNA CHRISTIANDOB: Health System PPOPolicy Number: [id number] Repository [id number] Date:
== END ==
PROVIDERS: Family Provider Student in an Organized Health Care Education/Training Program; PCP Student in an Organized Health Care Education/Training Program; Referring Provider Internal Medicine Cardiovascular Disease; Visit Provider Internal Medicine Cardiovascular Disease
DX: I48.0 Paroxysmal atrial fibrillation (principal); I10 Essential (primary) hypertension; Z79.01 Long term (current) use of anticoagulants
CPT/HCPCS: 36415; 80048; 84436; 84443; 85027; 85610

== ENCOUNTER 2018-10-28 08:46 | Day surgery (SDC) | payer MEDICARE, OTHER, SELFPAY ==
[2018-10-23 09:46] VITALS: BMI 37.7
[2018-10-25 10:45] LABS: Mucous, Urine 0 SEEN /hpf (<or=2+)
[2018-10-25 11:07] VITALS: BMI 36.0
[2018-10-25 11:21] LABS: Color, Urine Yellow (Yellow); Glucose, Dipstick Normal (Normal); Ketone-Dipstick Negative (Negative); Leukocyte Esterase-Dipstick 100 /ul (Negative); Nitrite-Dipstick Negative (Negative); Occult Blood-Urine 25 /ul (Negative); Protein-Dipstick 100 mg/dl (Negative); Specific Gravity, Urine 1.005 (1.002-1.030); Urine Bilirubin Dipstick Negative (Negative); Urine Clarity Sl. Cloudy (Clear); Urine Urobilinogen Normal (Normal)
[2018-10-25 11:27] LABS: Bacteria 1+ /hpf (None Seen); Red Blood Cells-Urine 0-5 SEEN /hpf (0-5); Squamous Epithelial Cells - UA 0-5 SEEN /hpf (5-10); White Blood Cells 10-25 SEEN /hpf (0-5)
[2018-10-28] VITALS (14 sets, daily range): BP systolic 146–164; BP diastolic 68–74; PULSE 81–91; RESP 16–18; TEMP 36.4–37.1; O2SAT 92–94; BMI 36.0
[2018-10-28 09:00] LABS: Prothrombin Time Fingerstick 17.3 SEC (11.9-14.4)
--- NOTE | 2018-10-28 12:29 | CL.IE_ITS ---
patient: REY GUY Study Date: 10/28/2018 Performing: Jelani Sanders MD : 1940 Age: 78 Gender: female PROCEDURES PERFORMED [id number] PACER INSERT+DUAL LEADS INDICATIONS Sinoatrial node dysfunction/Sick sinus syndrome PROCEDURE DETAILS The patient was brought to the Catheterization Lab in the postabsorptive nonsedated state. Infor med consent was obtained prior to the procedure. Local anesthetic was given subcutaneously to the le ft upper chest area with Lidocaine 2%. Incision was made to the left subclavicular area. Access was a chieved and a guidewire was advanced into the left subclavian vein. A peel-away sheath was inserted i nto the left subclavian vein. PPM ventricular lead was inserted / positioned to right ventricular sep valeria wall. A peel-away sheath was inserted into the left subclavian vein. PPM atrial lead was inserted / positioned to the right atrial appendage. The Atrial lead sutured in place with 3-0 Silk. The Vent ricular PM lead sutured in place with 3-0 Silk. Device pocket was irrigated with antibiotic. PPM gene rator was attached to the lead(s) and inserted into the pocket. Subcutaneous closure was completed wi th 3-0 Vicryl. Skin closure was completed with 4-0 Vicryl. Steri-strips applied to Lt chest area. The patient tolerated the procedure well. Estimated Blood Loss: < 10 mls IMPLANTED / EX-PLANTED DEVICES IMPLANTED DEVICE(S): PPM Atrial lead - [employer]: [employer], Model # [id number] , Serial # [id number] PPM Ventricular lead - [employer]: [employer], Model # [id number] , Serial # [id number] PPM Generator - [employer]: [employer], Model # [id number] , Serial # [id number] DEVICE PARAMETERS ATRIAL LEAD PARAMETERS: P wave (mV) - 3.6 threshold (V) - 0.5 impedence (OHMS) - 580 VENTRICULAR LEAD PARAMETERS: R wave (mV) - 7.4 current (mA) - 0.6 threshold (V) - 10.8 impedence (OHMS) - 796 DEVICE PARAMETERS: Mode - dddr lower rate - 60 upper rate - 120 rate response on CONCLUSIONS / RECOMMENDATIONS Device Conclusions: Successful implantation of a dual chamber pacemaker Device Recommendations: Follow up with Primary Care Physician PROCEDURE MEDICATIONS Versed 1 mg IV Fentanyl 50 mcg IV Versed 1 mg IV Oxygen: 2 L/min via nasal cannula Ancef 2 Gm IV @ 10/28/2018 11:00:44 Signed By Jelani Sanders MD On 10/28/2018 12:28:19 Jelani Sanders MD
[2018-10-28 14:20] LABS: Bedside Glucose 114 mg/dL (70-110)
--- NOTE | 2018-10-28 16:47 | NURSING ---
Pt visiting with family. VSS. Left chest wall drsg D+I. Pt rates her pain a 5 on pain scale. Denies need for pain medication.
[2018-10-28 17:05] LABS: Bedside Glucose 142 mg/dL (70-110)
--- NOTE | 2018-10-28 18:06 | PCM.PN.CARD ---
Subjectve: The patient is now s/p PPM placement. She denies any acute issues / concerns. Objective: Vital Signs Temp Pulse Resp BP Pulse Ox 98.7 F 91 16 161/69 H 92 10/28/18 17:38 10/28/18 17:38 10/28/18 17:38 10/28/18 17:38 10/28/18 17:38 Oxygen Delivery Method Room Air Weight: 196 lb 15.728 oz Body Mass Index (BMI) 36.0 Finger Stick Blood Glucose 140 Intake and Output for Last 24 Hours 10/26/18 10/27/18 10/28/18 23:59 23:59 23:59 Intake Total 240 / 240 Balance 240 / 240 General: Awake, Alert, Oriented x 3, Cooperative, No Acute Distress HEENT: Atraumatic, Normocephalic, PERRL, EOMI, Sclera Non Icteric Oral: Moist Mucosa Neck: Supple, Good ROM, No JVD Chest Wall: Left Pectoral Incision - Surgical dressing: clean / dry Lungs: Clear to auscultation Cardiovascular: Regular Rhythm, Normal S1, Normal S2 Abdomen: Bowel Sounds Present, Soft, Non Tender Extremities: No edema Psych/Mental Status: Appropriate 10/28/18 08:55: INR 1.50 Rhythm: sinus rhythm Medical Necessity - Tobacco Use Smoking Status: Never smoker Tobacco Use: Non-smoker Assessment/Plan 1. Sinus pauses s/p PPM placement The patient appears to be without acute complaint at this time. She will continue to be monitored. She will have follow up labs, ECGs, CXRs, and PPM check. 2. PAF The patient will continue medical therapy. This will include advancing her beta fabio therapy and antiarrhythmic therapy doses now that her PPM is in place. She will also be placed back on anticoagulant therapy when she is able to do so from a surgical standpoint. 3. Hyperlipidemia She will continue medical therapy as deemed appropriate. 4. Hypertension She will continue her medications with adjustment as needed. This note was generated using a voice recognition system and there may be incorrect words, spelling or punctuation that were not noted when reviewing the office note prior to saving.
[2018-10-28] MEDS: Losartan Potassium 50 MG Tablet PO (21:21)
[2018-10-28] MEDS: Flecainide 100 MG Tablet PO (21:22)
[2018-10-28] MEDS: Pravastatin 40 MG Tablet PO (21:22)
[2018-10-28 21:30] LABS: Bedside Glucose 173 mg/dL (70-110)
[2018-10-29 03:06] VITALS: PULSE 80
[2018-10-29 03:15] VITALS: BP 122/71; PULSE 82; RESP 16; TEMP 36.7; O2SAT 92
--- NOTE | 2018-10-29 04:46 | NURSING ---
all charting reviewed and agreed with by this RN, Irma.
[2018-10-29] MEDS: Levothyroxine 175 MCG Tablet PO (05:13)
--- NOTE | 2018-10-29 05:55 | RAD_ITS ---
STUDY: X-RAY CHEST REASON FOR EXAM: Female, 78 years old. Status post pacemaker insertion to exclude pneumothorax. TECHNIQUE: AP and lateral views of the chest. COMPARISON: 10/04/2018 FINDINGS: There is a left subclavian approach dual lead permanent pacemaker with lead tips over right atrium and right ventricle in good position. There is no kink or disruption along the leads. There is no demonstrated pneumothorax. Stable mild elevation of the right hemidiaphragm. The lungs are clear and expanded. There is no demonstrated pleural abnormality. Normal size heart. Normal mediastinum and jamila. Normal visualized pulmonary arteries. There is atherosclerotic calcification of the aortic arch with tortuosity. There is demineralization of the osseous structures. Normal visualized ribs, clavicles, and shoulders. There is no demonstrated abnormality of the visualized soft tissue structures of the upper abdomen. RAD/Chest PA and Lateral IMPRESSION: There is no demonstrated pneumothorax. Pacemaker appears in good position radiographically. No pulmonary edema, congestive heart failure or confluent pneumonia. Electronically Signed: Lisa Amezcua MD at 6:51 EST , Service support ,
--- NOTE | 2018-10-29 05:55 | EKG12_ITS ---
Test Reason : AM Blood Pressure : / mmHG Vent. Rate : 088 BPM Atrial Rate : 088 BPM P-R Int : 194 ms QRS Dur : 086 ms QT Int : 382 ms P-R-T Axes : 043 -08 039 degrees QTc Int : 462 ms Normal sinus rhythm Low voltage QRS Septal infarct , age undetermined , cannot be excluded Abnormal ECG Confirmed by ALEJO DUTTA, SINA ([id number]), order editor PHILL VAN ([id number]) on 10/31/2018 8:29:32 AM Referred By: Jelani Sanders Confirmed By:SINA DHILLON MD
[2018-10-29 06:19] LABS: Hematocrit 37.8 % (37-47); Hemoglobin 12.1 g/dl (12.0-15.0)
[2018-10-29 06:34] LABS: Anion Gap 9 (5-15); BUN 29 mg/dL (7-18); BUN/Creat Ratio 23.2 RATIO (10-20); Calcium,Total 8.1 mg/dL (8.5-10.1); Chloride 111 mmol/L (98-107); Creatinine, Serum 1.25 mg/dL (0.55-1.02); EST Glomerular Filtration Rate 44 mL/min (>60); Est Glom Filt Rate - Afr Amer 53 mL/min (>60); Estimated Creatinine Clearance 28.86 ml/min; Glucose 150 mg/dL (74-106); Potassium 4.5 mmol/L (3.5-5.1); Sodium Level 141 mmol/L (136-145)
[2018-10-29 06:59] VITALS: PULSE 91
[2018-10-29 07:11] LABS: Bedside Glucose 155 mg/dL (70-110)
--- NOTE | 2018-10-29 07:59 | DCINST_ITS ---
Discharge Diet: No Restrictions Discharge Activity: May Not Drive May resume sexual activity in: 2 weeks Call your doctor if your incision/area has: Continuous Slow Oozing, Sudden Increased Bleeding, Increased Pain/ Swelling, Increased Redness, Foul Smelling Discharge, Swelling at the incision site Call your doctor if you observe: Fever of 101 or Higher, Shortness of breath, Dizziness, Fainting spells, Swelling in the ankles, Chest pain, Prolonged hiccoughing, Increased palpitations (irregular heartbeat) Suture Line Care: Avoid Pulling/Pushing, Avoid Pinching/Bending Change Dressing in (Days):: 3 Remove Dressing in (days):: 3 Cleanse incision/area with: Do not get Incision Wet, Keep Dressing Clean & Dry Additional Dressing/Incision Instructions:: When dressing is removed, wash and dry incision. Keep covered with a light bandage if it is rubbing against your clothing. Do not cover the incision with an airtight bandage. Change the bandage daily. Do not remove steri strips. The strips will fall off on their own. Additional Instructions: Signs and Symptoms to Report to Your Doctor at Once - call your doctor's office or Doctor's Registry ([phone]) Call 911 or go to the nearest Emergency Department if you feel you need urgent care. *Infection (fever, increased redness or swelling at the incision site, drainage from the incision increased pain at the pacemaker site) *Shortness of breath *Dizziness *Fainting spells *Swelling in the ankles *Chest pain *Prolonged hiccoughing *Increased palpitaitons (irregular heartbeat) Medications: Take your pain medication as directed. Refer to your discharge instruction sheet for a list of medications you are to take. Allergies/Adverse Reactions: Allergies atorvastatin calcium [From Lipitor] Adverse Reaction (Verified 10/25/18 11:00) cough enalapril maleate [From Vasotec] Adverse Reaction (Verified 10/25/18 11:00) cough enalaprilat dihydrate [From Vasotec] Adverse Reaction (Verified 10/25/18 11:00) cough Medications to take at Discharge Albuterol Inhaler [Ventolin Hfa] 2 puff INHALATION Q4H PRN PRN 08/10/15 Allopurinol [Zyloprim] 300 mg PO DAILY 08/10/15 Amlodipine [Norvasc] 10 mg PO DAILY 08/10/15 Aspirin [Aspirin, Baby] 81 mg PO DAILY@0800 08/10/15 Cholecalciferol (VIT D3) [Vitamin D3] 2,000 unit PO BID 08/10/15 Folic Acid 1 mg PO DAILY@0800 08/10/15 Insulin Glargine,Hum.rec.anlog [Lantus] 27 unit SQ QHS 08/10/15 Insulin Lispro [Humalog] 10 unit SQ TIDCM 08/10/15 Pravastatin [Pravachol] 40 mg PO DAILY 10/04/18 Furosemide [Lasix] 40 mg PO DAILY tab 10/07/18 losartan 50 mg tablet 50 mg PO BID #60 tab 10/23/18 flecainide 100 mg tablet 100 mg PO BID 10/24/18 metoprolol succinate ER 25 mg tablet,extended release 24 hr 25 mg PO DAILY #30 tab 10/24/18 warfarin 4 mg tablet 6 mg PO MOTUWE 10/24/18 Levothyroxine Sodium [Synthroid] 175 mcg PO DAILY 10/25/18 Primary Care Physician: Marcelino Moon DO [Primary Care Provider] - Test Results: Test results from this visit will be discussed in further detail at your follow- up appointment, if applicable. When: [facility] sundaynov 04 at 9 am Proposed Discharge Date: 10/29/18
[2018-10-29] MEDS: Insulin Lispro 100 UNIT/ML INSULN.PEN 10 UNIT SC (09:10)
[2018-10-29] MEDS: Aspirin 81 MG TAB.CHEW PO (09:13)
[2018-10-29 09:15] VITALS: BP 153/68; PULSE 92; RESP 16; TEMP 36.7; O2SAT 93
[2018-10-29 09:38] VITALS: O2SAT 94
[2018-10-29] MEDS: Flecainide 100 MG Tablet PO (10:13)
[2018-10-29] MEDS: amLODIPine 10 MG Tablet PO (10:13)
[2018-10-29] MEDS: Furosemide 40 MG Tablet PO (10:13)
[2018-10-29] MEDS: Losartan Potassium 50 MG Tablet PO (10:13)
[2018-10-29 10:33] VITALS: PULSE 92
[2018-10-29] MEDS: Metoprolol(XL)Succ 50 MG Tablet PO (10:33)
--- NOTE | 2018-10-29 11:19 | PCM.DC.SUM ---
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 Sanders Sick sinus syndrome (Chronic) Essential hypertension (Chronic) Diabetes mellitus (Chronic) Cerebrovascular disease (Chronic) asympt small left thalamic infarct Paroxysmal atrial fibrillation (Chronic) on coumadin Gout (Chronic) Osteoporosis (Chronic) Hypothyroid (Chronic) Dyslipidemia (Chronic) HLD (hyperlipidemia) (Chronic) CKD (chronic kidney disease) stage 2, GFR 60-89 ml/min (Chronic) Hospital Course and Treatment Imaging Results: 10/29/18 05:55 Chest PA and Lateral [RAD] AM (NON MEDS) Operations: None Procedures: - - Permanent pacemaker Summary of Care Provided: The patient is a 78 year old white female with a history of paroxysmal atrial fibrillation with rapid ventricular response who has been having episodes of near syncope and subsequent findings on a 30 day event monitor demonstrating prolonged pauses greater than 5 to 6 seconds in duration who presented for further evaluation care with permanent pacemaker placement. She underwent permanent pacemaker placement on 10/28/2018 without obvious adverse event or complication. She was monitored overnight. Her follow up studies with respect to her laboratory studies, ECG, permanent pacemaker interrogation, and chest x-ray appear demonstrate no acute changes. She appears to be tolerating her medications well. It was felt the patient could be released home for continued outpatient cardiovascular follow up. [] Subjective: The patient is awake and alert and in no acute distress. - Physical Exam General: Alert, Oriented x3, Cooperative, No apparent distress HEENT: Atraumatic, PERRLA, EOMI, Normocephalic Oral: Moist Mucosa Neck: Supple, No JVD Lungs: Clear to auscultation Cardiovascular: Regular rate, Normal S1, Normal S2 Abdomen: Bowel Sounds Present, Soft, Non Tender Extremities: No edema Musculoskeletal: - - Left pectoral site: Surgical dressing colon clean and dry Psych/Mental Status: Appropriate Vital Signs Temp Pulse Resp BP Pulse Ox 98.1 F 92 16 153/68 H 94 10/29/18 09:15 10/29/18 10:33 10/29/18 09:15 10/29/18 09:15 10/29/18 09:38 Oxygen Delivery Method Room Air Weight: 196 lb 15.728 oz Body Mass Index (BMI) 36.0 Finger Stick Blood Glucose 140 Intake and Output for Last 24 Hours 10/27/18 10/28/18 10/29/18 23:59 23:59 23:59 Intake Total 360 / 360 60 / 60 Output Total 1250 / 1250 400 / 400 Balance -890 / -890 -340 / -340 Laboratory Tests Past 24 Hrs 10/29/18 10/29/18 05:25 05:25 Hgb 12.1 Hct 37.8 Sodium 141 Potassium 4.5 Chloride 111 H Carbon Dioxide 21.0 Anion Gap 9 BUN 29 H Creatinine 1.25 H Estim Creat Clear Calc 28.86 Est GFR (MDRD) Af Amer 53 L Est GFR (MDRD) Non-Af 44 L BUN/Creatinine Ratio 23.2 H Glucose 150 H Calcium 8.1 L POC Glucose 10/29/18 10/28/18 10/28/18 07:04 21:17 16:55 POC Glucose 155 H 173 H 142 H 10/28/18 14:04 POC Glucose 114 H Discharge Diet: No Restrictions Discharge Activity: May Not Drive May resume sexual activity in: 2 weeks Call your doctor if your incision/area has: Continuous Slow Oozing, Sudden Increased Bleeding, Increased Pain/ Swelling, Increased Redness, Foul Smelling Discharge, Swelling at the incision site Call your doctor if you observe: Fever of 101 or Higher, Shortness of breath, Dizziness, Fainting spells, Swelling in the ankles, Chest pain, Prolonged hiccoughing, Increased palpitations (irregular heartbeat) Suture Line Care: Avoid Pulling/Pushing, Avoid Pinching/Bending Change Dressing in (Days):: 3 Remove Dressing in (days):: 3 Cleanse incision/area with: Do not get Incision Wet, Keep Dressing Clean & Dry Additional Dressing/Incision Instructions:: When dressing is removed, wash and dry incision. Keep covered with a light bandage if it is rubbing against your clothing. Do not cover the incision with an airtight bandage. Change the bandage daily. Do not remove steri strips. The strips will fall off on their own. Home Medications: Medications to take at Discharge Albuterol Inhaler [Ventolin Hfa] 2 puff INHALATION Q4H PRN PRN 08/10/15 Allopurinol [Zyloprim] 300 mg PO DAILY 08/10/15 Amlodipine [Norvasc] 10 mg PO DAILY 08/10/15 Aspirin [Aspirin, Baby] 81 mg PO DAILY@0800 08/10/15 Cholecalciferol (VIT D3) [Vitamin D3] 2,000 unit PO BID 08/10/15 Folic Acid 1 mg PO DAILY@0800 08/10/15 Insulin Glargine,Hum.rec.anlog [Lantus] 27 unit SQ QHS 08/10/15 Insulin Lispro [Humalog] 10 unit SQ TIDCM 08/10/15 Pravastatin [Pravachol] 40 mg PO DAILY 10/04/18 Furosemide [Lasix] 40 mg PO DAILY tab 10/07/18 losartan 50 mg tablet 50 mg PO BID #60 tab 10/23/18 flecainide 100 mg tablet 100 mg PO BID 10/24/18 metoprolol succinate ER 25 mg tablet,extended release 24 hr 25 mg PO DAILY #30 tab 10/24/18 warfarin 4 mg tablet 6 mg PO MOTUWE 10/24/18 Levothyroxine Sodium [Synthroid] 175 mcg PO DAILY 10/25/18 Primary Care Physician: Marcelino Moon DO [Primary Care Provider] - When: [facility] sundaynov 04 at 9 am Additional Instructions: Signs and Symptoms to Report to Your Doctor at Once - call your doctor's office or [facility] Registry ([phone]) Call 911 or go to the nearest Emergency Department if you feel you need urgent care. *Infection (fever, increased redness or swelling at the incision site, drainage from the incision increased pain at the pacemaker site) *Shortness of breath *Dizziness *Fainting spells *Swelling in the ankles *Chest pain *Prolonged hiccoughing *Increased palpitaitons (irregular heartbeat) Medications: Take your pain medication as directed. Refer to your discharge instruction sheet for a list of medications you are to take. Disposition: Home Minutes spent on discharge:: 45 Patient Condition:: Stable Medical Necessity - Tobacco Use Smoking Status: Never smoker Tobacco Use: Non-smoker Meaningful Use Info Meaningful Use Diagnoses (Choose all that apply): None applicable
== END 2018-10-29 11:30 | disposition home or self-care (01) ==
LOC: CLSP 08:48 → PCU 12:49
PROVIDERS: Internal Medicine Cardiovascular Disease; Family Provider Student in an Organized Health Care Education/Training Program; PCP Student in an Organized Health Care Education/Training Program; Referring Provider Internal Medicine Cardiovascular Disease; Visit Provider Internal Medicine Cardiovascular Disease
DX: I49.5 Sick sinus syndrome (principal); I48.0 Paroxysmal atrial fibrillation; E78.5 Hyperlipidemia, unspecified; E11.9 Type 2 diabetes mellitus without complications; M10.9 Gout, unspecified; M81.0 Age-related osteoporosis without current pathological fracture; E03.9 Hypothyroidism, unspecified; N18.2 Chronic kidney disease, stage 2 (mild); I12.9 Hypertensive chronic kidney disease with stage 1 through stage 4 chronic kidney disease, or unspecified chronic kidney disease; Z79.4 Long term (current) use of insulin; Z79.82 Long term (current) use of aspirin; Z79.899 Other long term (current) drug therapy
CPT/HCPCS: 33208; 36415; 36416; 71046; 80048; 81001; 82962; 85014; 85018; 85610; 93005; 99152; 99153; J7040; J7050; C1894

== ENCOUNTER 2018-11-22 10:28 | Outpatient (RCR) | payer MEDICARE, OTHER, SELFPAY ==
[2018-10-28 12:56] VITALS: BMI 36.0
[2018-11-01 11:37] LABS: International Normalized Ratio 1.3
[2018-11-15 11:03] LABS: International Normalized Ratio 1.8; Prothrombin Time (Protime)PT. 20.8 SECONDS (11.7-14.9)
[2018-11-15 11:21] LABS: T4 Total, Thyroxin 9.1 ug/dL (4.8-13.9); Thyroid Stim Hormone (TSH) 2.51 uIU/mL (0.358-3.74)
[2018-11-22 10:54] LABS: International Normalized Ratio 2.1
== END 2018-11-28 14:11 | disposition home or self-care (01) ==
LOC: LAB 10:28
PROVIDERS: Family Provider Student in an Organized Health Care Education/Training Program; PCP Student in an Organized Health Care Education/Training Program; Referring Provider Internal Medicine Cardiovascular Disease; Visit Provider Internal Medicine Cardiovascular Disease
DX: I48.0 Paroxysmal atrial fibrillation (principal); Z79.01 Long term (current) use of anticoagulants
CPT/HCPCS: 36415; 84436; 84443; 85610

== ENCOUNTER 2018-12-13 10:27 | Outpatient (RCR) | payer MEDICARE, OTHER, SELFPAY ==
[2018-10-28 12:56] VITALS: BMI 36.0
[2018-12-06 14:55] VITALS: BMI 38.0
[2018-12-13 11:45] LABS: International Normalized Ratio 2.4; Prothrombin Time (Protime)PT. 26.3 SECONDS (11.7-14.9)
== END 2018-12-13 11:27 | disposition home or self-care (01) ==
LOC: LAB 10:27
PROVIDERS: Family Provider Student in an Organized Health Care Education/Training Program; PCP Student in an Organized Health Care Education/Training Program; Referring Provider Internal Medicine Cardiovascular Disease; Visit Provider Internal Medicine Cardiovascular Disease
DX: I48.0 Paroxysmal atrial fibrillation (principal); Z79.01 Long term (current) use of anticoagulants
CPT/HCPCS: 36415; 85610

== ENCOUNTER 2019-01-15 11:03 | Outpatient (RCR) | payer MEDICARE, OTHER, SELFPAY ==
[2018-12-06 14:55] VITALS: BMI 38.0
[2019-01-15 12:04] LABS: International Normalized Ratio 1.9; Prothrombin Time (Protime)PT. 21.4 SECONDS (11.7-14.9)
== END 2019-01-28 16:00 | disposition home or self-care (01) ==
LOC: LAB 11:03
PROVIDERS: Family Provider Student in an Organized Health Care Education/Training Program; PCP Student in an Organized Health Care Education/Training Program; Referring Provider Internal Medicine Cardiovascular Disease; Visit Provider Internal Medicine Cardiovascular Disease
DX: I48.0 Paroxysmal atrial fibrillation (principal); Z79.01 Long term (current) use of anticoagulants
CPT/HCPCS: 36415; 85610

== ENCOUNTER 2019-02-09 09:26 | Emergency (ER) | payer MEDICARE, OTHER, SELFPAY ==
[2018-12-06 14:55] VITALS: BMI 38.0
[2019-02-09 09:27] VITALS: BP 157/81; PULSE 118; RESP 20; TEMP 36.6; O2SAT 95; BMI 38.9
--- NOTE | 2019-02-09 09:31 | ED.RN ---
PT TAKEN BACK TO ROOM 8. CALLED FOR EKG. TRIAGE PAPERWORK COMPLETED
--- NOTE | 2019-02-09 09:40 | EKG12_ITS ---
Test Reason : SOB Blood Pressure : / mmHG Vent. Rate : 114 BPM Atrial Rate : 111 BPM P-R Int : 000 ms QRS Dur : 100 ms QT Int : 290 ms P-R-T Axes : 000 000 018 degrees QTc Int : 399 ms Atrial fibrillation with rapid ventricular response with occasional ventricular-paced complexes Septal infarct , age undetermined , cannot be excluded Abnormal ECG Confirmed by ALEJO DUTTA, SINA ([id number]), news copy editor PRISCILLA SIMMONS ([id number]) on 02/12/2019 1:46:59 PM Referred By: STACIE Confirmed By:SINA DHILLON MD
--- NOTE | 2019-02-09 09:40 | RAD_ITS ---
STUDY: X-RAY CHEST REASON FOR EXAM: Female, 79 years old. Increased shortness of breath, chest pain, generalized illness. TECHNIQUE: Portable chest upright COMPARISON: 10/29/2018 FINDINGS: Left pectoral pacer device with 2 wire leads, stable. Hazy bibasilar opacities, partially silhouetting hemidiaphragms, blunting costophrenic angles, slightly greater on the right, and suspicious for the possibility of layering pleural effusions with bibasilar atelectasis. Mid to upper lungs clear. No vascular congestion. No pneumothorax. 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 Mild to moderate cardiomegaly. Normal mediastinal silhouette, jamila and pleural margins. No acute osseous or upper abdominal process. RAD/Chest 1 View (Portable) IMPRESSION: Bibasilar pulmonary opacities as described above may reflect atelectasis, infiltrate and/or the presence of effusion. A follow-up PA and lateral chest may be helpful to better discern the process at the lung bases. Cardiomegaly. Background features of COPD/emphysema. Electronically Signed: Jesus Marshall MD at 10:17 EDT Tel , Service support ,
--- NOTE | 2019-02-09 09:43 | ED.VISSUMM ---
- ER Visit Summary Date of Service: 02/09/19 Chief Complaint: Shortness of breath History of Present Illness: The patient is a 79 F with shortness of breath. Patient woke up feeling short of breath and diaphoretic. She is felt continuously short of breath, and eventually became shaky. She denies any chest pain, abdominal pain, nausea or vomiting. She does have a headache and intermittently blurry vision. No associated cough or URI symptoms. Patient has atrial fibrillation and has a pacemaker placed in October. She is on Coumadin. History of CHF and hypertension as well. Physical Examination: Vital signs: afebrile, hemodynamically stable, no hypoxia on room air General: well nourished, well developed, in mild distress Skin: warm, moist, no rash, no pallor HEENT: normocephalic and atraumatic; PERRL, EOMI, moist mucous membranes Cardiovascular: Irregularly irregular tachycardia, trace pitting symmetric peripheral edema, 2+ pulses all distal extremities Respiratory: Mild increased work of breathing, lungs are clear to auscultation bilaterally, no rales, rhonchi or wheezing Abdominal: Abdomen is soft, nontender with normoactive bowel sounds, no guarding or rebound, no masses MSK: Moves all extremities, no deformities, normal strength, mild tremors intermittently Neuro: Awake and alert, oriented ?4. 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, sensation and motor function intact and symmetric Test Results: Abnormal Lab Results 02/09/19 02/09/19 02/09/19 09:45 09:45 09:45 WBC 12.1 H RBC 3.80 L Hgb 12.0 Hct 35.2 L MCV 92.6 MCH 31.6 MCHC 34.1 RDW 14.7 H RDW Differential 49.3 H Plt Count 254 MPV 11.1 Immature Gran % (Auto) 0.100 Neut % (Auto) 86.0 H Lymph % (Auto) 9.7 L Marin % (Auto) 3.8 Eos % (Auto) 0.2 Baso % (Auto) 0.2 Absolute Neuts (auto) 10.4 H Absolute Lymphs (auto) 1.18 Total Counted Not Reportable PT Cancelled INR Cancelled APTT Cancelled Sodium 137 Potassium 4.5 Chloride 108 H Carbon Dioxide 23.0 Anion Gap 6 BUN 38 H Creatinine 1.47 H Estim Creat Clear Calc 24.14 Est GFR (MDRD) Af Amer 44 L Est GFR (MDRD) Non-Af 36 L BUN/Creatinine Ratio 25.9 H Glucose 204 H Calcium 8.5 Magnesium 2.3 Troponin I < 0.015 B-Natriuretic Peptide TSH 5.12 H 02/09/19 02/09/19 09:45 10:30 WBC RBC Hgb Hct MCV MCH MCHC RDW RDW Differential Plt Count MPV Immature Gran % (Auto) Neut % (Auto) Lymph % (Auto) Marin % (Auto) Eos % (Auto) Baso % (Auto) Absolute Neuts (auto) Absolute Lymphs (auto) Total Counted PT 28.6 H INR 2.7 APTT 47.5 H Sodium Potassium Chloride Carbon Dioxide Anion Gap BUN Creatinine Estim Creat Clear Calc Est GFR (MDRD) Af Amer Est GFR (MDRD) Non-Af BUN/Creatinine Ratio Glucose Calcium Magnesium Troponin I B-Natriuretic Peptide 140.8 H TSH Clinical Impression(s) from Imaging Studies Chest X-Ray 02/09/19 09:40 IMPRESSION: Bibasilar pulmonary opacities as described above may reflect atelectasis, infiltrate and/or the presence of effusion. A follow-up PA and lateral chest may be helpful to better discern the process at the lung bases. Cardiomegaly. Background features of COPD/emphysema. Electronically Signed: Jesus Marshall MD at 10:17 EDT Tel , Service support , Chest X-Ray 02/09/19 10:20 IMPRESSION: Mild interstitial prominence. Cardiomegaly. Electronically Signed: Larry Rodriguez DO at 11:16 EDT Tel [phone], Service support , Medications Given Discontinued Medications Diltiazem HCl (Cardizem) 10 mg IV BOLUS X1 ONE Stop: 02/09/19 10:21 Last Admin: 02/09/19 10:37 Dose: 10 mg Emergency Department Course and Treatment: Patient presents in A. fib with RVR and is short of breath. She woke up with sudden onset of symptoms this morning. EKG showed A. fib RVR without any ischemic changes. Troponin negative. BNP is not significantly elevated. Chest x-ray does not show overt CHF or pneumonia. Patient had mild leukocytosis of 12.1. TSH was mildly elevated at 5. Because patient is on flecainide and anticoagulated on Coumadin, and is in A. fib with RVR, she was discussed with Dr. Spencer, who suggested cardioversion if patient has a therapeutic INR. We discussed an initial trial of Cardizem for rate control and possible spontaneous conversion, which he stated would be fine. Patient was given a dose of IV Cardizem and had initial rate control followed by spontaneous conversion into a normal sinus rhythm. Patient's shortness of breath was much improved afterwards. Patient still complained of a fullness in her head that felt like a sinus headache. Patient was ambulated on pulse oximeter and was able to ambulate without any difficulty. O2 sat decreased to 88% with the patient having any increased shortness of breath, and she immediately returned to the mid 90s once she stopped ambulating. On reevaluation patient remained standing and stated she felt well enough to go home. She feels close to her baseline. Patient was strongly advised to return if she has any worsening of her condition. Time there is no indication for admission of the patient, she is in her normal sinus rhythm, hemodynamically stable, and has no hypoxia, including while ambulating. Discharged home in improved condition. Treatment Plan: [] Disposition: [] Impression: A. fib with RVR This note was generated with [employer] dictation software. It may contain incorrect words, spelling, and punctuation that were not noted in review of the chart prior to signing ED Disposition - Plan for ED Patient: Disposition: Home or Assisted Living Instructions: ED Afib Referrals: Marcelino Moon DO [Primary Care Provider] - As Needed Adelfo Thompson MD [STAFF PHYSICIAN] - 1 Day Additional Instructions: Please continue taking your medications as prescribed. Call Dr. Thompson's office tomorrow to set up an appointment for another evaluation within a few days. If at any time you have return of your shortness of breath, feeling her heart racing, chest pain, sweating, or any new or concerning symptoms, return immediately to the emergency department for another evaluation.
[2019-02-09 09:57] LABS: Absolute Lymphocyte Count 1.18 X10^3/ul (0.83-4.51); Absolute Neutrophil Count 10.4 X10^3/uL (2.0-7.7); Basophil# 0.02 X10^3/uL; Basophil% 0.2 % (0-1); Eosinophil# 0.03 X10^3/uL; Eosinophils% 0.2 % (0-5); Hematocrit 35.2 % (37-47); Lymphocyte # 1.18 X10^3/ul (4.0); Lymphocyte % 9.7 % (19-41); Mean Corp Hgb Conc 34.1 g/gl (32-36); Mean Corpuscular Hgb 31.6 pg (27.0-32.0); Mean Corpuscular Volume 92.6 fL (81-99); Mean Platelet Vol. 11.1 fl (6.2-12.0); Monocyte# 0.46 X10^3/uL; Monocyte% 3.8 % (0-10); Neutrophil # 10.42 X10^3/uL (2.7-7.7); Platelet Count 254 K/mm3 (150-450); RBC Distribution Width CV 14.7 % (11.6-14.6); RBC Distribution Width SD 49.3 fl (35.1-43.9); White Blood Count 12.1 K/mm3 (4.4-11.0)
[2019-02-09 09:58] LABS: POSITIVE COUNT NO; POSITIVE DIFFERENTIAL NO; POSITIVE MORPHOLOGY NO
--- NOTE | 2019-02-09 09:58 | NURSING ---
BLUE TOP HEMOLIZED
[2019-02-09 10:17] LABS: Anion Gap 6 (5-15); BUN 38 mg/dL (7-18); BUN/Creat Ratio 25.9 RATIO (10-20); Calcium,Total 8.5 mg/dL (8.5-10.1); Chloride 108 mmol/L (98-107); Creatinine, Serum 1.47 mg/dL (0.55-1.02); EST Glomerular Filtration Rate 36 mL/min (>60); Est Glom Filt Rate - Afr Amer 44 mL/min (>60); Estimated Creatinine Clearance 24.14 ml/min; Glucose 204 mg/dL (74-106); Magnesium 2.3 mg/dL (1.6-2.6); Potassium 4.5 mmol/L (3.5-5.1); Sodium Level 137 mmol/L (136-145); Thyroid Stim Hormone (TSH) 5.12 uIU/mL (0.358-3.74)
--- NOTE | 2019-02-09 10:20 | RAD_ITS ---
STUDY: X-RAY CHEST REASON FOR EXAM: Female, 79 years old. Shortness of breath TECHNIQUE: Frontal and lateral views COMPARISON: February 09, 2019 at 09:45 hours FINDINGS: Stable left-sided pacemaker. The lungs are expanded. Mild interstitial prominence. Cardiomegaly. Normal mediastinum and jamila. Normal visualized pulmonary arteries. Calcified aortic arch and descending thoracic aorta. Normal visualized thoracic spine. Normal visualized ribs, clavicles, and shoulders. There is no demonstrated abnormality of the visualized soft tissue structures of the upper abdomen. RAD/Chest PA and Lateral IMPRESSION: Mild interstitial prominence. Cardiomegaly. Electronically Signed: Larry Rodriguez DO at 11:16 EDT Tel [phone], Service support ,
[2019-02-09 10:25] LABS: BNP,B-Type NATRIURETIC PEPTIDE 140.8 pg/mL (0-100)
[2019-02-09 10:27] VITALS: BP 154/90; PULSE 102; RESP 18; O2SAT 95
[2019-02-09] MEDS: dilTIAZem 25 MG/5 ML Vial 10 MG IV BOLUS (10:37)
[2019-02-09 10:45] LABS: International Normalized Ratio 2.7; Prothrombin Time (Protime)PT. 28.6 SECONDS (11.7-14.9)
[2019-02-09 10:46] VITALS: BP 144/92; PULSE 92; RESP 17; O2SAT 94
[2019-02-09 10:46] LABS: Partial Thromboplast Time 47.5 Seconds (24.1-36.2)
[2019-02-09 11:00] VITALS: BP 172/68; PULSE 64; RESP 16; O2SAT 94
[2019-02-09 12:00] VITALS: BP 159/78; PULSE 68; RESP 18; O2SAT 93
--- NOTE | 2019-02-09 12:00 | ED.RN ---
Walked with patient in high on O2 Sat on RA, O2 Sat dropped to 88% for a moment but immediately went back to 90% and remained there. Pt did not have increased SOB. Dr. Leon made aware
== END 2019-02-09 12:31 | disposition home or self-care (01) ==
PROVIDERS: Emergency Provider Emergency Medicine; Family Provider Student in an Organized Health Care Education/Training Program; PCP Student in an Organized Health Care Education/Training Program
DX: I48.91 Unspecified atrial fibrillation (principal); I11.0 Hypertensive heart disease with heart failure; I50.9 Heart failure, unspecified; G51.0 Bell's palsy; I25.10 Atherosclerotic heart disease of native coronary artery without angina pectoris; I25.2 Old myocardial infarction; Z79.01 Long term (current) use of anticoagulants; Z95.0 Presence of cardiac pacemaker
CPT/HCPCS: 71045; 71046; 80048; 83735; 83880; 84443; 84484; 85025; 85610; 85730; 93005; 99284; A4216

== ENCOUNTER 2019-02-13 11:48 | Outpatient (RCR) | payer MEDICARE, OTHER, SELFPAY ==
[2018-12-06 14:55] VITALS: BMI 38.0
[2019-01-29 15:30] LABS: International Normalized Ratio 1.9; Prothrombin Time (Protime)PT. 21.5 SECONDS (11.7-14.9)
[2019-02-13 12:40] LABS: International Normalized Ratio 2.6; Prothrombin Time (Protime)PT. 27.9 SECONDS (11.7-14.9)
[2019-02-13 13:08] LABS: Anion Gap 5 (5-15); BUN 39 mg/dL (7-18); BUN/Creat Ratio 26.2 RATIO (10-20); Calcium,Total 8.5 mg/dL (8.5-10.1); Chloride 109 mmol/L (98-107); Creatinine, Serum 1.49 mg/dL (0.55-1.02); EST Glomerular Filtration Rate 36 mL/min (>60); Est Glom Filt Rate - Afr Amer 43 mL/min (>60); Glucose 94 mg/dL (74-106); Potassium 4.5 mmol/L (3.5-5.1); Sodium Level 140 mmol/L (136-145)
== END 2019-02-13 12:48 | disposition home or self-care (01) ==
LOC: LAB 11:48
PROVIDERS: Family Provider Student in an Organized Health Care Education/Training Program; PCP Student in an Organized Health Care Education/Training Program; Referring Provider Internal Medicine Cardiovascular Disease; Visit Provider Internal Medicine Cardiovascular Disease
DX: I48.0 Paroxysmal atrial fibrillation (principal); Z79.01 Long term (current) use of anticoagulants
CPT/HCPCS: 36415; 80048; 85610

== ENCOUNTER 2019-03-17 10:31 | Outpatient (RCR) | payer MEDICARE, OTHER, SELFPAY ==
[2019-03-01 08:08] VITALS: BMI 38.0
[2019-03-04 10:27] VITALS: BMI 37.3
[2019-03-17 11:03] LABS: International Normalized Ratio 2.3; Prothrombin Time (Protime)PT. 25.4 SECONDS (11.7-14.9)
== END 2019-03-17 11:00 | disposition home or self-care (01) ==
LOC: LAB 10:31
PROVIDERS: Family Provider Student in an Organized Health Care Education/Training Program; PCP Student in an Organized Health Care Education/Training Program; Referring Provider Internal Medicine Cardiovascular Disease; Visit Provider Internal Medicine Cardiovascular Disease
DX: I48.0 Paroxysmal atrial fibrillation (principal); Z79.01 Long term (current) use of anticoagulants
CPT/HCPCS: 36415; 85610

== ENCOUNTER 2019-04-21 10:24 | Outpatient (RCR) | payer MEDICARE, OTHER, SELFPAY ==
[2019-03-04 10:27] VITALS: BMI 37.3
[2019-04-21 12:47] LABS: International Normalized Ratio 2.7; Prothrombin Time (Protime)PT. 28.5 SECONDS (11.7-14.9)
== END 2019-04-30 17:53 | disposition home or self-care (01) ==
LOC: LAB 10:24
PROVIDERS: Family Provider Student in an Organized Health Care Education/Training Program; PCP Student in an Organized Health Care Education/Training Program; Referring Provider Internal Medicine Cardiovascular Disease; Visit Provider Internal Medicine Cardiovascular Disease
DX: I48.0 Paroxysmal atrial fibrillation (principal); Z79.01 Long term (current) use of anticoagulants
CPT/HCPCS: 36415; 85610

== ENCOUNTER 2019-05-21 10:08 | Outpatient (RCR) | payer MEDICARE, OTHER, SELFPAY ==
[2019-03-04 10:27] VITALS: BMI 37.3
[2019-05-21 10:33] LABS: International Normalized Ratio 2.5
== END 2019-05-21 12:00 | disposition home or self-care (01) ==
LOC: LAB 10:08
PROVIDERS: Family Provider Student in an Organized Health Care Education/Training Program; PCP Student in an Organized Health Care Education/Training Program; Referring Provider Internal Medicine Cardiovascular Disease; Visit Provider Internal Medicine Cardiovascular Disease
DX: I48.0 Paroxysmal atrial fibrillation (principal); Z79.01 Long term (current) use of anticoagulants
CPT/HCPCS: 36415; 85610

== ENCOUNTER 2019-06-20 10:29 | Outpatient (RCR) | payer MEDICARE, OTHER, SELFPAY ==
[2019-03-04 10:27] VITALS: BMI 37.3
[2019-06-20 11:04] LABS: International Normalized Ratio 2.9; Prothrombin Time (Protime)PT. 30.2 SECONDS (11.7-14.9)
== END 2019-06-20 12:00 | disposition home or self-care (01) ==
LOC: LAB 10:29
PROVIDERS: Family Provider Student in an Organized Health Care Education/Training Program; PCP Student in an Organized Health Care Education/Training Program; Referring Provider Internal Medicine Cardiovascular Disease; Visit Provider Internal Medicine Cardiovascular Disease
DX: I48.0 Paroxysmal atrial fibrillation (principal); Z79.01 Long term (current) use of anticoagulants
CPT/HCPCS: 36415; 85610

== ENCOUNTER 2019-07-23 14:05 | Outpatient (RCR) | payer MEDICARE, OTHER, SELFPAY ==
[2019-03-04 10:27] VITALS: BMI 37.3
[2019-06-30 14:54] VITALS: BMI 36.9
[2019-07-23 15:53] LABS: International Normalized Ratio 3.4; Prothrombin Time (Protime)PT. 34.3 SECONDS (11.7-14.9)
== END 2019-07-23 18:00 | disposition home or self-care (01) ==
LOC: LAB 14:05
PROVIDERS: Family Provider Student in an Organized Health Care Education/Training Program; PCP Student in an Organized Health Care Education/Training Program; Referring Provider Internal Medicine Cardiovascular Disease; Visit Provider Internal Medicine Cardiovascular Disease
DX: I48.0 Paroxysmal atrial fibrillation (principal); Z79.01 Long term (current) use of anticoagulants
CPT/HCPCS: 36415; 85610

== ENCOUNTER 2019-08-26 13:10 | Outpatient (RCR) | payer MEDICARE, OTHER, SELFPAY ==
[2019-06-30 14:54] VITALS: BMI 36.9
[2019-08-07 11:43] LABS: International Normalized Ratio 2.6; Prothrombin Time (Protime)PT. 28.3 SECONDS (11.7-14.9)
[2019-08-26 13:59] LABS: Prothrombin Time (Protime)PT. 22.7 SECONDS (11.7-14.9)
== END 2019-08-26 18:00 | disposition home or self-care (01) ==
LOC: LAB 13:10
PROVIDERS: Family Provider Student in an Organized Health Care Education/Training Program; PCP Student in an Organized Health Care Education/Training Program; Referring Provider Internal Medicine Cardiovascular Disease; Visit Provider Internal Medicine Cardiovascular Disease
DX: I48.0 Paroxysmal atrial fibrillation (principal); Z79.01 Long term (current) use of anticoagulants
CPT/HCPCS: 36415; 85610

== ENCOUNTER 2019-09-11 11:04 | Outpatient (RCR) | payer MEDICARE, OTHER, SELFPAY ==
[2019-06-30 14:54] VITALS: BMI 36.9
[2019-09-11 12:46] LABS: International Normalized Ratio 2.6; Prothrombin Time (Protime)PT. 28.1 SECONDS (11.7-14.9)
== END 2019-09-11 18:00 | disposition home or self-care (01) ==
LOC: LAB 11:04
PROVIDERS: Family Provider Student in an Organized Health Care Education/Training Program; PCP Student in an Organized Health Care Education/Training Program; Referring Provider Internal Medicine Cardiovascular Disease; Visit Provider Internal Medicine Cardiovascular Disease
DX: I48.0 Paroxysmal atrial fibrillation (principal); Z79.01 Long term (current) use of anticoagulants
CPT/HCPCS: 36415; 85610

== ENCOUNTER 2019-10-03 12:47 | Outpatient (RCR) | payer MEDICARE, OTHER, SELFPAY ==
[2019-06-30 14:54] VITALS: BMI 36.9
[2019-10-03 14:09] LABS: International Normalized Ratio 2.2; Prothrombin Time (Protime)PT. 24.8 SECONDS (11.7-14.9)
== END 2019-10-03 18:00 | disposition home or self-care (01) ==
LOC: LAB 12:47
PROVIDERS: Family Provider Student in an Organized Health Care Education/Training Program; PCP Student in an Organized Health Care Education/Training Program; Referring Provider Internal Medicine Cardiovascular Disease; Visit Provider Internal Medicine Cardiovascular Disease
DX: I48.0 Paroxysmal atrial fibrillation (principal); Z79.01 Long term (current) use of anticoagulants
CPT/HCPCS: 36415; 85610

== ENCOUNTER 2019-11-03 11:20 | Outpatient (RCR) | payer MEDICARE, OTHER, SELFPAY ==
[2019-06-30 14:54] VITALS: BMI 36.9
[2019-11-03 11:56] LABS: International Normalized Ratio 2.9; Prothrombin Time (Protime)PT. 30.6 SECONDS (11.7-14.9)
== END 2019-11-03 18:00 | disposition home or self-care (01) ==
LOC: LAB 11:20
PROVIDERS: Family Provider Student in an Organized Health Care Education/Training Program; PCP Student in an Organized Health Care Education/Training Program; Referring Provider Internal Medicine Cardiovascular Disease; Visit Provider Internal Medicine Cardiovascular Disease
DX: I48.0 Paroxysmal atrial fibrillation (principal); Z79.01 Long term (current) use of anticoagulants
CPT/HCPCS: 36415; 85610

== ENCOUNTER 2019-11-22 20:05 | Inpatient (IN) | payer MEDICARE, OTHER, SELFPAY ==
[2019-06-30 14:54] VITALS: BMI 36.9
[2019-11-22 20:06] VITALS: BP 159/74; PULSE 63; RESP 18; TEMP 37.4; O2SAT 95; BMI 38.0
--- NOTE | 2019-11-22 21:26 | CT_ITS ---
We are attempting to reach an attending provider to discuss findings. An addendum with communication details will be sent when the communication is complete. HISTORY: ABDOM DISTENTION, PAIN TECHNIQUE: Helically acquired images were obtained of the abdomen and pelvis without oral or IV contrast. A radiation dose optimization technique was used for this scan. COMPARISON: None FINDINGS: # of images incl. paperwork: 545 LUNG BASES: Small pericardial effusion. Cardiac pacer leads. Mitral and aortic valvular calcifications. Severe LAD calcific atherosclerotic plaque with additional plaque within the right main and circumflex regions. Fairly significant tracheobronchial tree calcifications. Evidence for pulmonary hyperexpansion and chronic bronchitis. 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 Induration in the anterior abdominal wall likely related to subcutaneous injections. The gallbladder remains. Liver, spleen, and adrenal glands are normal. Within the head of the pancreas, series 2 image 68 there is a ill-defined hypodense lesion that I measure at about 16 x 10 mm. It has a central density of -10 Hounsfield units The kidneys are normal. The aorta is severely diseased with circumferential atherosclerotic plaque, but without aneurysm. There is no intra-or extrahepatic biliary ductal dilatation. CT pelvis: No ascites is present. The uterus is bulky and enlarged with calcifications consistent with multiple benign uterine leiomyomata. The left ovary is not enlarged. I cannot differentiate the right ovary. The appendix is not spine, however, there does appear to be an appendicolith at the junction of the appendix and the cecum. There is adjacent indurated tissue. There is a structure within the right lower quadrant adjacent to the cecum that could represent a thickened appendix. The bladder is normal. Severe diverticulosis within the descending and sigmoid colon. No bowel obstruction. Some body wall edema. CT/Abdomen/Pelvis without Cont IMPRESSION: Indeterminate study. Probable acute nonperforated appendicitis Recommend clinical correlation. If additional imaging necessary to further determine the probable diagnosis of acute appendicitis, oral contrast and repeat imaging of the pelvis could be performed. I would anticipate at least a 2 hour oral prep would be needed to assure that the terminal ileum and cecum and some of the ascending colon are opacified with oral contrast prior to repeating the irradiation of the patient. Individualized dose optimization techniques were used for this CT. at 2351 Reported and signed by: Naga Chavira MD Electronically Signed: Naga Chavira MD at 23:50 EST Tel , Service support ,
[2019-11-22] MEDS: 0.9% Normal Saline 1,000 ML 150 ML IV (21:43)
[2019-11-22] MEDS: Ondansetron 4 MG/2 ML Vial IV (21:43)
[2019-11-22] MEDS: Morphine 2 MG/ML Syringe IV (21:43)
[2019-11-22 21:48] LABS: Absolute Lymphocyte Count 1.69 X10^3/uL (0.83-4.51); Absolute Neutrophil Count 13.3 X10^3/uL (2.0-7.7); Basophil# 0.04 X10^3/uL; Basophil% 0.2 % (0-1); Eosinophil# 0.26 X10^3/uL; Eosinophils% 1.6 % (0-5); Hematocrit 38.3 % (37-47); Hemoglobin 12.4 g/dL (12.0-15.0); Lymphocyte # 1.69 X10^3/ul (4.0); Lymphocyte % 10.3 % (19-41); Mean Corp Hgb Conc 32.4 g/dL (32-36); Mean Corpuscular Volume 92.7 fL (81-99); Mean Platelet Vol. 12.1 fl (6.2-12.0); Monocyte# 1.09 X10^3/uL; Monocyte% 6.6 % (0-10); NRBC Flagged by Analyzer 0 % (0-5); Neutrophil # 13.25 X10^3/uL (2.7-7.7); Neutrophil % 80.9 % (47-70); Platelet Count 272 K/mm3 (150-450); RBC Distribution Width CV 14.4 % (11.6-14.6); Red Blood Count 4.13 M/mm3 (4.2-5.4); White Blood Count 16.4 K/mm3 (4.4-11.0)
[2019-11-22 21:50] VITALS: O2SAT 87
[2019-11-22 21:52] VITALS: O2SAT 92
[2019-11-22 22:01] LABS: AST(SGOT) 30 U/L (15-37); Alanine Aminotransfer ALT/SGPT 44 U/L (13-56); Albumin, Serum 3.3 g/dL (3.2-5.0); Alkaline Phosphatase 124 U/L (45-117); Anion Gap 3 (5-15); BUN 46 mg/dL (7-18); BUN/Creat Ratio 27.2 RATIO (10-20); Bilirubin, Direct 0.14 mg/dL (0.00-0.30); Calcium,Total 8.7 mg/dL (8.5-10.1); Chloride 107 mmol/L (98-107); Creatinine, Serum 1.69 mg/dL (0.55-1.02); EST Glomerular Filtration Rate 31 mL/min (>60); Est Glom Filt Rate - Afr Amer 37 mL/min (>60); Globulin 4.1 g/dL (2.2-4.2); Glucose 173 mg/dL (74-106); Lipase 94 U/L (73-393); Protein, Total 7.4 g/dL (6.4-8.2); Sodium Level 136 mmol/L (136-145)
[2019-11-22 22:28] VITALS: BP 180/54; PULSE 68; RESP 21; O2SAT 92
[2019-11-22 22:31] LABS: Bacteria 0 SEEN /hpf (None Seen); Mucous, Urine 0 SEEN /hpf (<or=2+); Squamous Epithelial Cells - UA 0 SEEN /hpf (5-10); White Blood Cells 0 SEEN /hpf (0-5)
[2019-11-22 22:33] LABS: Color, Urine Yellow (Yellow); Glucose, Dipstick Normal (Normal); Ketone-Dipstick Negative (Negative); Leukocyte Esterase-Dipstick Negative /ul (Negative); Nitrite-Dipstick Negative (Negative); Occult Blood-Urine 150 /ul (Negative); Protein-Dipstick 500 mg/dl (Negative); Urine Bilirubin Dipstick Negative (Negative); Urine Clarity Clear (Clear); Urine Urobilinogen Normal (Normal)
[2019-11-22 22:44] LABS: Red Blood Cells-Urine 0-5 SEEN /hpf (0-5)
[2019-11-23] VITALS (28 sets, daily range): BP systolic 134–175; BP diastolic 44–78; PULSE 60–86; RESP 16–23; TEMP 36.6–37.5; O2SAT 92–99; BMI 37.9
--- NOTE | 2019-11-23 00:19 | CT_ITS ---
We are attempting to reach an attending provider to discuss findings. An addendum with communication details will be sent when the communication is complete. HISTORY: ABDOMINAL DISTENTION AND PAIN, REPEAT EXAM W CONTRAST, 2.5 HOUR ORAL TECHNIQUE: Helically acquired images were obtained of the abdomen and pelvis following the intravenous administration of 100 ML of Isovue 300 Iodinated contrast. 2D reformats. Oral contrast was administered. A radiation dose optimization technique was used for this scan. COMPARISON: Most recent comparison CT scan of the abdomen and pelvis is November 22, 2027, 5 hours earlier. I had said that the patient likely had acute appendicitis, but I cannot clearly differentiate the appendix from the surrounding tissues, and a long prep oral contrast was suggested FINDINGS: # of images incl. paperwork: 465 LUNG BASES: Basilar scarring. Coronary artery calcific ASCVD. Cardiomegaly. Artifact pacer leads. Tiny pericardial effusion. CT abdomen: Multilevel degenerative disc disease with enthesophytes. Lower lumbar spine facet arthropathy. The gallbladder is distended. Liver, spleen, pancreas, and adrenal glands, are normal. Some hypodense lesions on both kidneys likely represent benign cysts. The aorta is disease with circumferential calcific atherosclerotic disease is tortuous, but without aneurysm or dissection. CT pelvis: Trace pelvic ascites is present. The uterus contains uterine leiomyomata. Ovaries are atrophic. The appendix is thickened with surrounding indurated tissue. The appendix does not fill with oral contrast when the terminal ileum does. The appendix is thickened to 15 mm. Series 2 image 99. The bladder is normal. Diverticulosis remain severe within the sigmoid colon CT/Abdomen/Pelvis WITH Contrast IMPRESSION: Acute appendicitis. Individualized dose optimization techniques were used for this CT. at 0408 Reported and signed by: Naga Chavira MD Electronically Signed: Naga Chavira MD at 4:07 EST Tel , Service support ,
[2019-11-23 00:23] LABS: International Normalized Ratio 3.2; Prothrombin Time (Protime)PT. 33.3 SECONDS (11.7-14.9)
[2019-11-23] MEDS: Morphine 2 MG/ML Syringe IV ×2 (00:30→08:59)
--- NOTE | 2019-11-23 00:48 | ED.RN ---
jayashree bonilla phone number [phone] wants to be called with updates.
--- NOTE | 2019-11-23 03:02 | ED.VIS.GEN ---
History of Present Illness Chief Complaint: Abd Pain Informant: Patient Onset: Yesterday Current Severity: Mild Maximum Severity: Moderate Narrative: Patient presents with her son secondary to abdominal pain and bloating. She points to both epigastric region as well as the right lower quadrant. She has been able to eat today and states the pain does not seem to be affected by food. She denies having nausea, vomiting, or diarrhea. She denies urinary symptoms. 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 Status: Chronic (11) Osteoporosis Status: Chronic (12) Paroxysmal atrial fibrillation Status: Chronic Comment: on coumadin (13) Sick sinus syndrome Status: Chronic Past Medical History - Allergies and Home Meds Allergies/Adverse Reactions: Allergies atorvastatin calcium [From Lipitor] Adverse Reaction (Verified 11/22/19 20:19) cough enalapril maleate [From Vasotec] Adverse Reaction (Verified 11/22/19 20:19) cough enalaprilat dihydrate [From Vasotec] Adverse Reaction (Verified 11/22/19 20:19) cough Primary Care Physician: Marcelino Moon DO [Primary Care Provider] - Prior records reviewed: Yes Surgical History: - - Tubal ligation Smoking Status: Never smoker - Family History Maternal Family History: Family History (Last Updated 03/04/19 @ 10:39 by Montse Ring) Mother CVA (cerebral vascular accident) Hypertension Father Heart disease Myocardial infarction Family History: Reports: Hypertension, Stroke Paternal Family History: Family History (Last Updated 03/04/19 @ 10:39 by Montse Ring) Mother CVA (cerebral vascular accident) Hypertension Father Heart disease Myocardial infarction Family History: Reports: Heart Disease Review of Systems General: Denies: Fever Eyes: Denies: Visual changes - bilaterally ENT: Denies: Bilateral ear pain Cardiovascular: Denies: Chest pain Respiratory: Denies: Dyspnea, Cough Gastrointestinal: Reports: Abdominal pain. Denies: Vomiting, Diarrhea Genitourinary: Denies: Dysuria, Frequency Musculoskeletal: Denies: Extremity Pain Skin: Denies: Rash Neurological: Denies: Headache Allergy: Denies: Uticaria Physical Exam Vital Signs/Narrative: Vital Signs Pulse Resp BP Pulse Ox 11/23/19 02:00 60 23 H 139/56 H 93 11/23/19 00:00 63 19 H 169/60 H 95 Inital Vital Signs reviewed: Yes General: Well nourished, Well developed Head: Normocephalic ENT: Moist mucous membranes Neck: Supple Cardiovascular: Regular rate, Regular rhythm Respiratory: No distress, CTA bilaterally Abdomen: Soft, Tender - Tenderness outpatient in the epigastric region as well as the right lower quadrant. No guarding. Hypoactive bowel sounds. Extremities: Nontender Skin: Normal color Neurological: Alert, Oriented x3 Psychological: Normal affect Diagnostic/Tx/Re-eval Impressions Abdomen/Pelvis CT 11/22/19 21:26 IMPRESSION: Indeterminate study. Probable acute nonperforated appendicitis Recommend clinical correlation. If additional imaging necessary to further determine the probable diagnosis of acute appendicitis, oral contrast and repeat imaging of the pelvis could be performed. I would anticipate at least a 2 hour oral prep would be needed to assure that the terminal ileum and cecum and some of the ascending colon are opacified with oral contrast prior to repeating the irradiation of the patient. Individualized dose optimization techniques were used for this CT. at 2351 Reported and signed by: Naga Chavira MD Electronically Signed: Naga Chavira MD at 23:50 EST Tel , Service support , ADDENDUM: 11/23/19 0001 IMPRESSION: Indeterminate study. Probable acute nonperforated appendicitis Recommend clinical correlation. If additional imaging necessary to further determine the probable diagnosis of acute appendicitis, oral contrast and repeat imaging of the pelvis could be performed. I would anticipate at least a 2 hour oral prep would be needed to assure that the terminal ileum and cecum and some of the ascending colon are opacified with oral contrast prior to repeating the irradiation of the patient. Individualized dose optimization techniques were used for this CT. at 2351 Reported and signed by: Naga Chavira MD N.B. : The above information has been verbally conveyed by Naga Chavira MD to Tisha Leung MD, on 11/22/2019 23:54:06 (ET). Electronically Signed: Naga Chavira MD at 23:50 EST Tel , Service support , 11/22/19 21:26 Abdomen/Pelvis without Cont [CT] Stat 11/23/19 00:19 Abdomen/Pelvis WITH Contrast [CT] Stat Laboratory Results 11/22/19 11/22/19 11/22/19 20:25 20:25 20:25 WBC 16.4 H RBC 4.13 L Hgb 12.4 Hct 38.3 MCV 92.7 MCH 30.0 MCHC 32.4 RDW Std Deviation 48.0 H RDW Coeff of Ashley 14.4 Plt Count 272 MPV 12.1 H Immature Gran % (Auto) 0.400 Neut % (Auto) 80.9 H Lymph % (Auto) 10.3 L Pope % (Auto) 6.6 Eos % (Auto) 1.6 Baso % (Auto) 0.2 Absolute Neuts (auto) 13.3 H Absolute Lymphs (auto) 1.69 Nucleated RBC % 0 PT 33.3 H INR 3.2 Sodium 136 Potassium 5.0 Chloride 107 Carbon Dioxide 26.0 Anion Gap 3 L BUN 46 H Creatinine 1.69 H Estim Creat Clear Calc 21.00 Est GFR (MDRD) Af Amer 37 L Est GFR (MDRD) Non-Af 31 L BUN/Creatinine Ratio 27.2 H Glucose 173 H Calcium 8.7 Total Bilirubin 0.30 Direct Bilirubin 0.14 AST 30 ALT 44 Alkaline Phosphatase 124 H Total Protein 7.4 Albumin 3.3 Globulin 4.1 Lipase 94 Urine Color Urine Clarity Urine pH Ur Specific [place] Urine Protein Urine Glucose (UA) Urine Ketones Urine Occult Blood Urine Nitrite Urine Bilirubin Urine Urobilinogen Ur Leukocyte Esterase Urine RBC Urine WBC Ur Squamous Epith Cells Urine Bacteria Urine Mucus 11/22/19 22:25 WBC RBC Hgb Hct MCV MCH MCHC RDW Std Deviation RDW Coeff of Ashley Plt Count MPV Immature Gran % (Auto) Neut % (Auto) Lymph % (Auto) Pope % (Auto) Eos % (Auto) Baso % (Auto) Absolute Neuts (auto) Absolute Lymphs (auto) Nucleated RBC % PT INR Sodium Potassium Chloride Carbon Dioxide Anion Gap BUN Creatinine Estim Creat Clear Calc Est GFR (MDRD) Af Amer Est GFR (MDRD) Non-Af BUN/Creatinine Ratio Glucose Calcium Total Bilirubin Direct Bilirubin AST ALT Alkaline Phosphatase Total Protein Albumin Globulin Lipase Urine Color Yellow Urine Clarity Clear Urine pH 6.0 Ur Specific [place] 1.010 Urine Protein 500 H Urine Glucose (UA) Normal Urine Ketones Negative Urine Occult Blood 150 H Urine Nitrite Negative Urine Bilirubin Negative Urine Urobilinogen Normal Ur Leukocyte Esterase Negative Urine RBC 0-5 SEEN Urine WBC 0 SEEN Ur Squamous Epith Cells 0 SEEN Urine Bacteria 0 SEEN Urine Mucus 0 SEEN - Medical Decision Making She was given a small dose of morphine along with Zofran. Test results are discussed with Dr. Del Real, surgeon on-call. She reviewed the CT images from home. She requests CT scan with contrast be performed and to wait 3 to 3-1/2 hours after p.o. contrast to ensure p.o. contrast makes it to the cecum. This will be signed out to oncoming physician for return phone call to Dr. Del Real and final disposition. Due to the patient's exam, CT concern, and elevated white count she was given a dose of Zosyn. ED Disposition - Plan for ED Patient: Referrals: Marcelino Moon DO [Primary Care Provider] -
--- NOTE | 2019-11-23 04:51 | HP.PCM_ITS ---
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 (5) Sinus pause Status: Inactive (6) Essential hypertension Status: Chronic (7) Bradycardia Status: Inactive (8) Pre-syncope Status: Inactive (9) Diabetes mellitus Status: Chronic (10) Cerebrovascular disease Status: Chronic Comment: asympt small left thalamic infarct (11) Paroxysmal atrial fibrillation Status: Chronic Comment: on coumadin (12) Gout Status: Chronic (13) Osteoporosis Status: Chronic (14) Hypothyroid Status: Chronic (15) Dyslipidemia Status: Chronic (16) HLD (hyperlipidemia) Status: Chronic Qualifiers: Hyperlipidemia type: unspecified Qualified Code(s): E78.5 - Hyperlipidemia, unspecified (17) CKD (chronic kidney disease) stage 2, GFR 60-89 ml/min Status: Chronic History of Present Illness Date of Admission: 11/23/19 Chief Complaint: abdominal pain The patient is a 79 year old F with a significant for paroxysmal A. fib; permanent pacemaker; sick sinus syndrome who presents emergency department with excruciating right lower quadrant pain. She describes her pain as sharp. Her pain worsens with movement and with pressure and the pain is improved with lying still. She denies any nausea or vomiting. Initial abdomen and pelvis CT was indeterminate study. Follow-up abdomen and pelvis CT showed appendicitis. Past Medical History Past Medical History (Chronic Problems): Chronic Problems (Last Reviewed 11/23/19 @ 07:[address] 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.0 HTN (hypertension) (Inactive) I10 Allergies atorvastatin calcium [From Lipitor] Adverse Reaction (Verified 11/22/19 20:19) cough enalapril maleate [From Vasotec] Adverse Reaction (Verified 11/22/19 20:19) cough enalaprilat dihydrate [From Vasotec] Adverse Reaction (Verified 11/22/19 20:19) cough Home Medications: Ambulatory Orders Medication Instructions Recorded Albuterol Inhaler [Ventolin Hfa] 2 puff INHALATION Q4H PRN PRN 08/10/15 Allopurinol [Zyloprim] 300 mg PO DAILY 08/10/15 Amlodipine [Norvasc] 10 mg PO DAILY 08/10/15 Aspirin [Aspirin, Baby] 81 mg PO DAILY@0800 08/10/15 Cholecalciferol (VIT D3) [Vitamin 2,000 unit PO BID 08/10/15 D3] Insulin Glargine,Hum.rec.anlog 27 unit SQ QHS 08/10/15 [Lantus] Insulin Lispro [Humalog] 10 unit SQ TIDCM 08/10/15 Pravastatin [Pravachol] 40 mg PO DAILY 10/04/18 Levothyroxine Sodium [Synthroid] 175 mcg PO DAILY 10/25/18 calcium carbonate 500 mg (1,250 1 tab PO DAILY tab 03/04/19 mg)-vitamin D3 200 unit tablet folic acid 0.8 mg capsule 0.8 mg PO DAILY 03/04/19 multivitamin with minerals 1 tab PO DAILY tab 03/04/19 Flecainide Acetate 100 mg PO BID 11/23/19 Furosemide [Lasix] 40 mg PO BID 11/23/19 Losartan Potassium [Cozaar] 50 mg PO BID 11/23/19 Metoprolol Succinate [Toprol Xl] 37.5 mg PO DAILY 11/23/19 Warfarin Sodium [Coumadin] 6 mg PO .COMPLEX 11/23/19 Surgical History: Surgical History (Last Reviewed 11/23/19 @ 07:[address] 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 Julio César Armijo MD) Mother CVA (cerebral vascular accident) Hypertension Father Heart disease Myocardial infarction History Items: Hypertension, Stroke Paternal Family History: Family History (Last Reviewed 11/23/19 @ 07:[address] Julio César Armijo MD) Mother CVA (cerebral vascular accident) Hypertension Father Heart disease Myocardial infarction History Items: Heart Disease Review of Systems Constitutional: Denies: Chills, Fever, Weight Change HEENT: Denies: Head Aches, Sinus Congestion, Sinus Drainage Cardiovascular: Denies: Chest Pain, Palpitations Respiratory: Reports: Wheezing. Denies: Cough, Shortness of breath at rest, Sputum production Gastrointestinal: Reports: Abdominal Pain. Denies: Nausea, Vomiting Genitourinary: Denies: Dysuria Musculoskeletal: Denies: Joint Pain, Joint Tenderness Skin: Denies: Rash, Wounds Neurological: Denies: Numbness, Tingling, Focal weakness Psychiatric: Denies: Anxiety, Depression, Homicidal Ideations, Suicidal Ideations Hematologic/ Lymphatic: Denies: Easy Bruising, Easy Bleeding VTE Information - Inpt Only VTE Present on Admission: No VTE Mechan Device Prophylaxis: SCD's VTE Pharm Prophylaxis ordered?: No Patient Problems: Active and Suspected Problems (Last Reviewed 11/23/19 @ 07:[address] Julio César Armijo MD) Appendicitis (Acute) - Physical Exam Vitals/I&O's: Vital Signs Temp Pulse Resp BP Pulse Ox 99.4 F H 60 23 H 139/56 H 93 11/22/19 20:06 11/23/19 02:00 11/23/19 02:00 11/23/19 02:00 11/23/19 02:00 Oxygen Flow Rate (L/min) 2 Oxygen Delivery Method Nasal Cannula Weight: 94.347 kg Body Mass Index (BMI) 38.0 Finger Stick Blood Glucose 140 Intake and Output for Last 24 Hours 11/21/19 11/22/19 11/23/19 23:59 23:59 23:59 Intake Total 1100.0 / 1100.0 Balance 1100.0 / 1100.0 General: Alert, Oriented x3, Cooperative HEENT: Atraumatic, PERRLA, EOMI, Normocephalic Neck: Supple, No JVD, Negative Carotid Bruits Lungs: No rales, Wheezes Cardiovascular: Normal S1, Normal S2, No murmurs, Irregular Rate Abdomen: Bowel Sounds Present, Soft, Tender - RIGHT LOWER QUADRANT Extremities: No edema, Capillary Refill Less than 3 Seconds Skin: No rashes, No breakdown Musculoskeletal: No Tenderness to Palpation of Joints or Extremities Neurological: Cranial nerves II-XII grossly intact Psych/Mental Status: Normal Affect, Appropriate Laboratory Results 11/22/19 20:25: WBC 16.4 H, RBC 4.13 L, Hgb 12.4, Hct 38.3, MCV 92.7, MCH 30.0, MCHC 32.4, RDW Std Deviation 48.0 H, RDW Coeff of Ashley 14.4, Plt Count 272, MPV 12.1 H, Immature Gran % (Auto) 0.400, Neut % (Auto) 80.9 H, Lymph % (Auto) 10.3 L, Perkins % (Auto) 6.6, Eos % (Auto) 1.6, Baso % (Auto) 0.2, Absolute Neuts (auto) 13.3 H, Absolute Lymphs (auto) 1.69, Nucleated RBC % 0 11/22/19 20:25: Sodium 136, Potassium 5.0, Chloride 107, Carbon Dioxide 26.0, Anion Gap 3 L, BUN 46 H, Creatinine 1.69 H, Estim Creat Clear Calc 21.00, Est GFR (MDRD) Af Amer 37 L, Est GFR (MDRD) Non-Af 31 L, BUN/Creatinine Ratio 27.2 H , Glucose 173 H, Calcium 8.7, Total Bilirubin 0.30, Direct Bilirubin 0.14, AST 30, ALT 44, Alkaline Phosphatase 124 H, Total Protein 7.4, Albumin 3.3, Globulin 4.1, Lipase 94 11/22/19 20:25: PT 33.3 H, INR 3.2 11/22/19 22:25: Urine Color Yellow, Urine Clarity Clear, Urine pH 6.0, Ur Specific [place] 1.010, Urine Protein 500 H, Urine Glucose (UA) Normal, Urine Ketones Negative, Urine Occult Blood 150 H, Urine Nitrite Negative, Urine Bilirubin Negative, Urine Urobilinogen Normal, Ur Leukocyte Esterase Negative, Urine RBC 0-5 SEEN, Urine WBC 0 SEEN, Ur Squamous Epith Cells 0 SEEN, Urine Bacteria 0 SEEN, Urine Mucus 0 SEEN Current Medications Sodium Chloride () 1,000 mls @ 150 mls/hr IV .Q6H40M STEVIE Last Infusion: 11/23/19 04:38 Dose: Infused Documented by: Assessment/Plan All Active Problems (Last Reviewed 11/23/19 @ 07:[address] Julio César Armijo MD) Appendicitis (Acute) Garcia's palsy (Resolved) The patient is a 79 year old F with a significant for paroxysmal A. fib; permanent pacemaker; sick sinus syndrome who presents emergency department with excruciating right lower quadrant pain and abdomen and pelvis CT showing acute appendicitis. Acute Appendicitis prn morphine. PRN antiemetics ordered. Discussed with ED doc to give Vitamin K sublingual Patient will receive FFP 3 units and then with INR will be repeated Keep n.p.o. hold Lasix. General surgery consult. Afib INR 3.2 In the setting of surgery for acute appendicitis INR is being reversed as above. Flecainide continue metoprolol continued CKD stage IIIb Stable. Trend BMP. Hypertension On presentation her blood pressure was not within goal Metoprolol; Cozaar; and amlodipine continued Trend blood pressure and adjust blood pressure medications PRN Hydralazine ordered. Diabetes mellitus with hyperglycemia Blood glucose on presentation was 173 Hold home prandial and basal insulin. Put patient on correction scale insulin The patient will be n.p.o. except meds with sips. Acute bronchitis Placed on scheduled DuoNeb and PRN albuterol. DVT prophylaxis SCD ordered. Code Visit Inpatient E&M: 50869 Init Hosp L3
[2019-11-23] MEDS: Phytonadione (Vit K1) 5 MG TABLET 10 MG PO (05:50)
--- NOTE | 2019-11-23 06:02 | CON.PCM_ITS ---
Reason for Consult Date of Consultation: 11/23/19 History of Present Illness: The patient is a 79 year old F patient presents the ER due to right lower quadrant pain. Patient states pain started yesterday afternoon but she also states she has been having pain off and on for a week, yesterday was worse. Patient was able to eat potato soup for supper yesterday with no nausea or vomiting, but had nothing to eat or drink since is currently not hungry. Patient CT abdomen pelvis with was consistent with acute appendicitis. Patient is on Coumadin for A. fib currently her INR is 3.2. Patient's white blood count is 16 and she was given Zosyn 4.5 g IV x1 in the ER. Patient does have 3 units of FFP ordered and ready to go and patient was given 10 mg of vitamin K p.o. as she had an anaphylactic reaction to the IV vitamin K. Past medical history does include A. fib, diabetes, status post pacer due to sick sinus syndrome. Patient also states she normally has an issue with constipation as well as well as bloating or epigastric. Patient states she only occasionally has reflux which is controlled with Tums. Past Medical History Past Medical History (Chronic Problems): Chronic Problems (Last Reviewed 11/23/19 @ 07:[address] 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 Fatty liver K76.0 HTN (hypertension) (Inactive) I10 Allergies atorvastatin calcium [From Lipitor] Adverse Reaction (Verified 11/22/19 20:19) cough enalapril maleate [From Vasotec] Adverse Reaction (Verified 11/22/19 20:19) cough enalaprilat dihydrate [From Vasotec] Adverse Reaction (Verified 11/22/19 20:19) cough Home Medications: Ambulatory Orders Medication Instructions Recorded Albuterol Inhaler [Ventolin Hfa] 2 puff INHALATION Q4H PRN PRN 08/10/15 Allopurinol [Zyloprim] 300 mg PO DAILY 08/10/15 Amlodipine [Norvasc] 10 mg PO DAILY 08/10/15 Aspirin [Aspirin, Baby] 81 mg PO DAILY@0800 08/10/15 Cholecalciferol (VIT D3) [Vitamin 2,000 unit PO BID 08/10/15 D3] Insulin Glargine,Hum.rec.anlog 27 unit SQ QHS 08/10/15 [Lantus] Insulin Lispro [Humalog] 10 unit SQ TIDCM 08/10/15 Pravastatin [Pravachol] 40 mg PO DAILY 10/04/18 Levothyroxine Sodium [Synthroid] 175 mcg PO DAILY 10/25/18 calcium carbonate 500 mg (1,250 1 tab PO DAILY tab 03/04/19 mg)-vitamin D3 200 unit tablet folic acid 0.8 mg capsule 0.8 mg PO DAILY 03/04/19 multivitamin with minerals 1 tab PO DAILY tab 03/04/19 Flecainide Acetate 100 mg PO BID 11/23/19 Furosemide [Lasix] 40 mg PO BID 11/23/19 Losartan Potassium [Cozaar] 50 mg PO BID 11/23/19 Metoprolol Succinate [Toprol Xl] 37.5 mg PO DAILY 11/23/19 Warfarin Sodium [Coumadin] 6 mg PO .COMPLEX 11/23/19 Surgical History: Surgical History (Last Reviewed 11/23/19 @ 07:[address] 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 Julio César Armijo MD) Mother CVA (cerebral vascular accident) Hypertension Father Heart disease Myocardial infarction History Items: Hypertension, Stroke Paternal Family History: Family History (Last Reviewed 11/23/19 @ 07:[address] Julio César Armijo MD) Mother CVA (cerebral vascular accident) Hypertension Father Heart disease Myocardial infarction History Items: Heart Disease Review of Systems Constitutional: Reports: Anorexia Eyes: Denies: Blurred vision HEENT: Denies: Difficulty Swallowing Cardiovascular: Denies: Chest Pain Respiratory: Denies: Shortness of breath at rest Gastrointestinal: Reports: Abdominal Pain, Constipation, Nausea Skin: Denies: Rash Neurological: Denies: Balance problems Psychiatric: Denies: Depression Hematologic/ Lymphatic: Denies: Easy Bleeding Patient Problems: Active and Suspected Problems (Last Reviewed 11/23/19 @ 07:[address] Julio César Armijo MD) Appendicitis (Acute) - Physical Exam Vitals/I&O's: Vital Signs Temp Pulse Resp BP Pulse Ox 99.4 F H 60 23 H 139/56 H 93 11/22/19 20:06 11/23/19 02:00 11/23/19 02:00 11/23/19 02:00 11/23/19 02:00 Oxygen Flow Rate (L/min) 2 Oxygen Delivery Method Nasal Cannula Weight: 208 lb Body Mass Index (BMI) 38.0 Finger Stick Blood Glucose 140 Intake and Output for Last 24 Hours 11/21/19 11/22/19 11/23/19 23:59 23:59 23:59 Intake Total 1100.0 / 1100.0 Balance 1100.0 / 1100.0 General: Alert, Oriented x3, Cooperative Lungs: Normal air movement Cardiovascular: Regular rate - paced Abdomen: Soft, Distended, Tender - Right lower quadrant, no peritoneal signs, positive Rovsing sign Extremities: No clubbing, No cyanosis Neurological: Cranial nerves II-XII grossly intact Psych/Mental Status: Normal Affect Laboratory Results 11/22/19 20:25: WBC 16.4 H, RBC 4.13 L, Hgb 12.4, Hct 38.3, MCV 92.7, MCH 30.0, MCHC 32.4, RDW Std Deviation 48.0 H, RDW Coeff of Ashley 14.4, Plt Count 272, MPV 12.1 H, Immature Gran % (Auto) 0.400, Neut % (Auto) 80.9 H, Lymph % (Auto) 10.3 L, Becker % (Auto) 6.6, Eos % (Auto) 1.6, Baso % (Auto) 0.2, Absolute Neuts (auto) 13.3 H, Absolute Lymphs (auto) 1.69, Nucleated RBC % 0 11/22/19 20:25: Sodium 136, Potassium 5.0, Chloride 107, Carbon Dioxide 26.0, Anion Gap 3 L, BUN 46 H, Creatinine 1.69 H, Estim Creat Clear Calc 21.00, Est GFR (MDRD) Af Amer 37 L, Est GFR (MDRD) Non-Af 31 L, BUN/Creatinine Ratio 27.2 H , Glucose 173 H, Calcium 8.7, Total Bilirubin 0.30, Direct Bilirubin 0.14, AST 30, ALT 44, Alkaline Phosphatase 124 H, Total Protein 7.4, Albumin 3.3, Globulin 4.1, Lipase 94 11/22/19 20:25: PT 33.3 H, INR 3.2 11/22/19 22:25: Urine Color Yellow, Urine Clarity Clear, Urine pH 6.0, Ur Specific [place] 1.010, Urine Protein 500 H, Urine Glucose (UA) Normal, Urine Ketones Negative, Urine Occult Blood 150 H, Urine Nitrite Negative, Urine Bilirubin Negative, Urine Urobilinogen Normal, Ur Leukocyte Esterase Negative, Urine RBC 0-5 SEEN, Urine WBC 0 SEEN, Ur Squamous Epith Cells 0 SEEN, Urine Bacteria 0 SEEN, Urine Mucus 0 SEEN 11/23/19 04:45: Blood Type TNP 11/23/19 04:45: Blood Type A POSITIVE Current Medications Sodium Chloride () 1,000 mls @ 150 mls/hr IV .Q6H40M COUNTS INCLUDE 234 BEDS AT THE [facility] Last Admin: 11/23/19 05:27 Dose: Not Given Documented by: Assessment/Plan All Active Problems (Last Reviewed 11/23/19 @ 07:[address] Julio César Armijo MD) Appendicitis (Acute) Garcia's palsy (Resolved) 79 y/o F with acute appendicitis, INR of 3.2?on Coumadin for A. fib 1. Discussed procedure laparoscopic appendectomy, possible open, possible bowel resection along with the risk but not limited to bleeding, infection/abscess, injury to another organ (small bowel, colon, etc.), adhesion, hernia at incision sites, and anesthesia. Pt will get 3 units FFP and recheck INR--once about 1.5 or below will proceed with surgery 2. Zosyn 3.375g IV q8H Kiara Del Real M.D. Pager: [phone] [facility] [address] [place] [address], [address] [place] [address] Office: [phone]
--- NOTE | 2019-11-23 06:45 | ED.RN ---
TRISHA RN AND KAITLYN RN ON MED SURGE WERE TOLD BY THIS RN THAT 3 UNITS OF FFP NEED TO BE HUNG ON THIS PT AND CONSENT NEEDS SIGNED FOR ADMINISTRATION OF BLOOD PRODUCTS, THEY WERE NOT READY PER BLOOD BANK TO BE HUNG IN THE ER. DR. MEDINA AND DR HOUSER AWARE.
--- NOTE | 2019-11-23 07:52 | NURSING ---
FFP started per order. vitals taken and doc.pt educated on transfusion reactions. pt stable no transfusion reaction noted. [facility].
[2019-11-23] MEDS: 0.9% Saline Lock 10 ML Syringe IV ×3 (08:53→09:26)
--- NOTE | 2019-11-23 08:54 | PCM.PN.BLA ---
STROKE Vital Signs/Narrative: Vital Signs Temp Pulse Resp BP Pulse Ox 11/23/19 08:45 99.0 F 62 16 138/61 H 96 11/23/19 07:20 99.1 F 60 18 149/66 H 95 11/23/19 07:15 99.5 F H 60 18 152/71 H 93 11/23/19 06:14 98.7 F 60 18 175/75 H 93
[2019-11-23] MEDS: Metoprolol(XL)Succ 25 MG Tablet 37.5 MG PO (08:55)
[2019-11-23 09:26] LABS: Bedside Glucose 148 mg/dL (70-110)
[2019-11-23] MEDS: Ipratropium/Albuterol Sulfate 3 ML AMPUL.NEB INHALATION ×3 (11:01→18:40)
--- NOTE | 2019-11-23 11:44 | NURSING ---
This nurse has the Pacemaker card from pt. Contacted [facility]. Left information with person taking history. IS aware that surgery today and probably by 1230 today. Will have fraud representative call this nurse back.
--- NOTE | 2019-11-23 11:51 | NURSING ---
Tad ang from [facility] is on his way but coming from [facility] be here for 45min. He is aware that pt will probably be in surgery by then and he is okay with this.
--- NOTE | 2019-11-23 12:00 | APP_PTH ---
PATIENT: RYE GUY LOC: MS3 U#:[id number] AGE/SX: 79/F ROOM: [facility] RE11/23/[address]: Dr. Pierre Askew MD : [id number] BED: 1 DIS: 11/30/2019 SPEC #: [id number] RECD: 11/24/19 10:30 STATUS: LEVY REKen #: [id number] STANLEY: 11/23/19 12:[address]: Kiara Del Real DEPT: SURGICAL PATHOLOGY RECD BY: Vignesh Bhagat ENTERED: 11/24/19 10:48 SP TYPE: APPENDIX OTHR DR: MD Dr. Marcelino Wright DO Dr. Prakash Chand, MD Tissues: Appendix, NOS Procedures: Surgery Specimen Level III HEADER OPERATION: Laparoscopic appendectomy PRE-OP DIAGNOSIS: Acute appendicitis TISSUE SUBMITTED: Appendix MICROSCOPIC DIAGNOSIS Appendix, appendectomy: Acute appendicitis. Acute serositis. AM:tommie 11/25/19 MICROSCOPIC DESCRIPTION Slides are reviewed. GROSS DESCRIPTION Received is one container labeled with the patient's name and designated appendix. The specimen consists of an appendix measuring 4.7 cm in length and up to 0.6 cm in diameter. No obvious perforation is identified. 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 / AM:tommie 11/24/19 TC:2 CPT: 42400
[2019-11-23 12:11] LABS: Bedside Glucose 108 mg/dL (70-110)
--- NOTE | 2019-11-23 12:14 | PCM.PN.HOSP ---
<Romel Enciso - Last Filed: 11/23/19 12:14> Patient Problems: Active and Suspected Problems (Last Reviewed 11/23/19 @ 07:[address] Julio César Armijo MD) Appendicitis (Acute) Reason for Visit: RLQ pain Subjective: Pt seen preop. Complains of RLQ severe pain at rest, worse with movement. Pt reports recent self diagnosed bronchitis, using OTC meds plus home inhaler. She has a productive cough with yellow much. No SOB. No CP. No LH/dizziness. No nausea or vomiting. No diarrhea. No fever/chills. Vitals/I&O's: Vital Signs Temp Pulse Resp BP Pulse Ox 98.5 F 71 18 160/67 H 97 11/23/19 11:57 11/23/19 11:57 11/23/19 11:57 11/23/19 11:57 11/23/19 11:57 Oxygen Flow Rate (L/min) 2 Oxygen Delivery Method Nasal Cannula Weight: 207 lb 3.752 oz Body Mass Index (BMI) 37.9 Finger Stick Blood Glucose 140 Intake and Output for Last 24 Hours 11/21/19 11/22/19 11/23/19 23:59 23:59 23:59 Intake Total 1750.0 / 1750.0 Balance 1750.0 / 1750.0 General: Alert, Oriented x3, Cooperative HEENT: Atraumatic, PERRLA, EOMI, Normocephalic Neck: Supple, No JVD, Negative Carotid Bruits Lungs: Normal air movement, Wheezes - faint wheeze Cardiovascular: Regular rate, No murmurs Abdomen: Bowel Sounds Present, Soft, Non Tender Extremities: No edema, Capillary Refill Less than 3 Seconds Skin: No rashes, No breakdown Musculoskeletal: No Tenderness to Palpation of Joints or Extremities Neurological: Cranial nerves II-XII grossly intact Psych/Mental Status: Normal Affect, Appropriate Laboratory Results 11/22/19 20:25: WBC 16.4 H, RBC 4.13 L, Hgb 12.4, Hct 38.3, MCV 92.7, MCH 30.0, MCHC 32.4, RDW Std Deviation 48.0 H, RDW Coeff of Ashley 14.4, Plt Count 272, MPV 12.1 H, Immature Gran % (Auto) 0.400, Neut % (Auto) 80.9 H, Lymph % (Auto) 10.3 L, [place] % (Auto) 6.6, Eos % (Auto) 1.6, Baso % (Auto) 0.2, Absolute Neuts (auto) 13.3 H, Absolute Lymphs (auto) 1.69, Nucleated RBC % 0 11/22/19 20:25: Sodium 136, Potassium 5.0, Chloride 107, Carbon Dioxide 26.0, Anion Gap 3 L, BUN 46 H, Creatinine 1.69 H, Estim Creat Clear Calc 21.00, Est GFR (MDRD) Af Amer 37 L, Est GFR (MDRD) Non-Af 31 L, BUN/Creatinine Ratio 27.2 H, Glucose 173 H, Calcium 8.7, Total Bilirubin 0.30, Direct Bilirubin 0.14, AST 30, ALT 44, Alkaline Phosphatase 124 H, Total Protein 7.4, Albumin 3.3, Globulin 4.1, Lipase 94 11/22/19 20:25: PT 33.3 H, INR 3.2 11/22/19 22:25: Urine Color Yellow, Urine Clarity Clear, Urine pH 6.0, Ur Specific [place] 1.010, Urine Protein 500 H, Urine Glucose (UA) Normal, Urine Ketones Negative, Urine Occult Blood 150 H, Urine Nitrite Negative, Urine Bilirubin Negative, Urine Urobilinogen Normal, Ur Leukocyte Esterase Negative, Urine RBC 0-5 SEEN, Urine WBC 0 SEEN, Ur Squamous Epith Cells 0 SEEN, Urine Bacteria 0 SEEN, Urine Mucus 0 SEEN 11/23/19 04:45: Blood Type TNP 11/23/19 04:45: Blood Type A POSITIVE 11/23/19 09:06: POC Glucose 148 H 11/23/19 12:06: POC Glucose 108 Current Medications Albuterol Sulfate (Ventolin Aerosols) 2.5 mg INHALATION Q2H [facility] Albuterol/Ipratropium (Duoneb) 3 ml INHALATION Q4HWA.RT [facility] Last Admin: 11/23/19 11:01 Dose: 3 ml Documented by: Amlodipine Besylate (Norvasc) 10 mg PO DAILY [facility] Last Admin: 11/23/19 11:06 Dose: Not Given Documented by: Dextrose (D50w Syringe) 0 gm IV X1 PRN; Protocol PRN Reason: Hypoglycemia Flecainide Acetate (Tambocor) 100 mg PO BID [facility] Last Admin: 11/23/19 11:06 Dose: Not Given Documented by: Glucagon () 1 mg IM .X1 PRN PRN Reason: Hypoglycemia Hydralazine HCl (Apresoline Iv) 5 mg IV Q6H PRN PRN PRN Reason: SBP > 160 Piperacillin Sod/Tazobactam (Sod 3.375 gm/ Sodium Chloride) 50 mls @ 12.5 mls/hr IV Q8 [facility] Sodium Chloride () 250 mls @ 15 mls/hr IV .[id number] PRN PRN Reason: Saline Flush Last Infusion: 11/23/19 09:29 Dose: 0 mls/hr Documented by: Insulin Human Lispro (Humalog Kwikpen (Bkc)) 0 unit SC Q6 [facility]; Protocol Last Admin: 11/23/19 09:28 Dose: Not Given Documented by: Levothyroxine Sodium (Synthroid) 175 mcg PO DAILY@0600 [facility] Last Admin: 11/23/19 11:06 Dose: Not Given Documented by: Losartan Potassium (Cozaar) 50 mg PO BID [facility] Last Admin: 11/23/19 11:06 Dose: Not Given Documented by: Metoprolol Succinate (Toprol Xl (Beta Trang)) 37.5 mg PO DAILY [facility] Last Admin: 11/23/19 08:55 Dose: 37.5 mg Documented by: Morphine Sulfate () 2 mg IV Q3H PRN PRN PRN Reason: Pain Score 6-10/10 Last Admin: 11/23/19 08:59 Dose: 2 mg Documented by: Ondansetron HCl (Zofran) 4 mg IV Q8H PRN PRN PRN Reason: NAUSEA/VOMITING Sodium Chloride () 10 - 40 ml IV UD PRN PRN Reason: SALINE FLUSH Last Admin: 11/23/19 09:26 Dose: 10 ml Documented by: STROKE Vital Signs/Narrative: Vital Signs Temp Pulse Resp BP Pulse Ox 11/23/19 11:57 98.5 F 71 18 160/67 H 97 11/23/19 11:23 98.5 F 71 18 160/67 H 11/23/19 11:18 62 11/23/19 11:10 61 18 139/63 H 97 11/23/19 11:01 86 18 92 11/23/19 10:31 99.2 F H 63 16 136/71 H 95 11/23/19 09:18 99.1 F 63 16 134/63 H 94 11/23/19 09:10 72 96 11/23/19 08:55 72 11/23/19 08:45 99.0 F 62 16 138/61 H 96 Medical Necessity - Tobacco Use Smoking Status: Never smoker Assessment/Plan All Active Problems (Last Reviewed 11/23/19 @ 07:[address] Julio César Armijo MD) Appendicitis (Acute) Garcia's palsy (Resolved) 1. Appendicitis - going to OR today for lap appy with Dr. Del Real. On zosyn. Surgical risk report placed on patients chart. WBC 16.4, afebrile. 2. Recent bronchitis - continue aerosols, mucinex, incentive spirometer 3. CKDII - mild increase vs baseline - IV fluids. recheck in am. 4. pAfib - warfarin, given ffp this AM. Flecainide, metoprolol. Rate stable. 5. Dmt2 - SSI, resume lantus when diet advanced. 6. Hx SSS - has pacemaker 7. hypothyroid - synthroid 8. Hx Gout - allopurinol 9. [place] palsy - not on steroids. 10. HTN - somewhat elevated. home meds + prn hydralazine. likely elevated due to pain. DVT ppx: SCDs DC planning: ptot post op This patient was seen by Romel Enciso PA-C under the supervision of Dr. Cruz <Hellen Cruz - Last Filed: 11/23/19 17:25> Vitals/I&O's: Vital Signs Temp Pulse Resp BP Pulse Ox 97.8 F 73 18 148/44 H 99 11/23/19 15:12 11/23/19 15:12 11/23/19 15:12 11/23/19 15:12 11/23/19 15:12 Oxygen Flow Rate (L/min) 2 Oxygen Delivery Method Nasal Cannula Weight: 94 kg Body Mass Index (BMI) 37.9 Finger Stick Blood Glucose 124 Intake and Output for Last 24 Hours 11/21/19 11/22/19 11/23/19 23:59 23:59 23:59 Intake Total 2951.0 / 2951.0 Balance 2951.0 / 2951.0 Laboratory Results 11/22/19 20:25: WBC 16.4 H, RBC 4.13 L, Hgb 12.4, Hct 38.3, MCV 92.7, MCH 30.0, MCHC 32.4, RDW Std Deviation 48.0 H, RDW Coeff of Ashley 14.4, Plt Count 272, MPV 12.1 H, Immature Gran % (Auto) 0.400, Neut % (Auto) 80.9 H, Lymph % (Auto) 10.3 L, [place] % (Auto) 6.6, Eos % (Auto) 1.6, Baso % (Auto) 0.2, Absolute Neuts (auto) 13.3 H, Absolute Lymphs (auto) 1.69, Nucleated RBC % 0 11/22/19 20:25: Sodium 136, Potassium 5.0, Chloride 107, Carbon Dioxide 26.0, Anion Gap 3 L, BUN 46 H, Creatinine 1.69 H, Estim Creat Clear Calc 21.00, Est GFR (MDRD) Af Amer 37 L, Est GFR (MDRD) Non-Af 31 L, BUN/Creatinine Ratio 27.2 H, Glucose 173 H, Calcium 8.7, Total Bilirubin 0.30, Direct Bilirubin 0.14, AST 30, ALT 44, Alkaline Phosphatase 124 H, Total Protein 7.4, Albumin 3.3, Globulin 4.1, Lipase 94 11/22/19 20:25: PT 33.3 H, INR 3.2 11/22/19 22:25: Urine Color Yellow, Urine Clarity Clear, Urine pH 6.0, Ur Specific [place] 1.010, Urine Protein 500 H, Urine Glucose (UA) Normal, Urine Ketones Negative, Urine Occult Blood 150 H, Urine Nitrite Negative, Urine Bilirubin Negative, Urine Urobilinogen Normal, Ur Leukocyte Esterase Negative, Urine RBC 0-5 SEEN, Urine WBC 0 SEEN, Ur Squamous Epith Cells 0 SEEN, Urine Bacteria 0 SEEN, Urine Mucus 0 SEEN 11/23/19 04:45: Blood Type TNP 11/23/19 04:45: Blood Type A POSITIVE 11/23/19 09:06: POC Glucose 148 H 11/23/19 12:06: POC Glucose 108 11/23/19 12:10: PT 21.0 H, INR 1.8 11/23/19 12:10: WBC 21.1 H, RBC 3.25 L, Hgb 9.7 L, Hct 30.2 L, MCV 92.9, MCH 29.8, MCHC 32.1, RDW Std Deviation 49.3 H, RDW Coeff of Ashley 14.7 H, Plt Count 183, MPV 10.9, Immature Gran % (Auto) 0.400, Neut % (Auto) 75.4 H, Lymph % (Auto) 17.7 L, [place] % (Auto) 5.9, Eos % (Auto) 0.4, Baso % (Auto) 0.2, Absolute Neuts (auto) 15.9 H, Absolute Lymphs (auto) 3.72, Nucleated RBC % 0 11/23/19 12:10: Sodium 140, Potassium 4.4, Chloride 105, Carbon Dioxide 27.0, Anion Gap 8, BUN 39 H, Creatinine 1.84 H, Estim Creat Clear Calc 19.29, Est GFR (MDRD) Af Amer 34 L, Est GFR (MDRD) Non-Af 28 L, BUN/Creatinine Ratio 21.2 H, Glucose 114 H, Calcium 8.3 L, Total Bilirubin 0.60, AST 22, ALT 33, Alkaline Phosphatase 90, Total Protein 6.9, Albumin 3.0 L, Globulin 3.9, Albumin/Globulin Ratio 0.8 L 11/23/19 14:19: POC Glucose 124 H Current Medications Albuterol Sulfate (Ventolin Aerosols) 2.5 mg INHALATION Q2H PRN PRN PRN Reason: WHEEZING Albuterol/Ipratropium (Duoneb) 3 ml INHALATION Q4HWA.RT [facility] Last Admin: 11/23/19 11:01 Dose: 3 ml Documented by: Amlodipine Besylate (Norvasc) 10 mg PO DAILY [facility] Last Admin: 11/23/19 16:31 Dose: 10 mg Documented by: Dextrose (D50w Syringe) 0 gm IV X1 PRN; Protocol PRN Reason: Hypoglycemia Flecainide Acetate (Tambocor) 100 mg PO BID [facility] Last Admin: 11/23/19 11:06 Dose: Not Given Documented by: Glucagon () 1 mg IM .X1 PRN PRN Reason: Hypoglycemia Hydralazine HCl (Apresoline Iv) 5 mg IV Q6H PRN PRN PRN Reason: SBP > 160 Piperacillin Sod/Tazobactam (Sod 3.375 gm/ Sodium Chloride) 50 mls @ 12.5 mls/hr IV Q8 [facility] Last Admin: 11/23/19 14:38 Dose: 12.5 mls/hr Documented by: Sodium Chloride () 250 mls @ 15 mls/hr IV .[id number] PRN PRN Reason: Saline Flush Last Infusion: 11/23/19 09:29 Dose: 0 mls/hr Documented by: Insulin Human Lispro (Humalog Kwikpen (Bkc)) 0 unit SC Q6 [facility]; Protocol Last Admin: 11/23/19 12:15 Dose: Not Given Documented by: Levothyroxine Sodium (Synthroid) 175 mcg PO DAILY@0600 [facility] Last Admin: 11/23/19 16:31 Dose: 175 mcg Documented by: Losartan Potassium (Cozaar) 50 mg PO BID [facility] Last Admin: 11/23/19 11:06 Dose: Not Given Documented by: Metoprolol Succinate (Toprol Xl (Beta Trang)) 37.5 mg PO DAILY [facility] Last Admin: 11/23/19 08:55 Dose: 37.5 mg Documented by: Morphine Sulfate () 2 mg IV Q3H PRN PRN PRN Reason: Pain Score 6-10/10 Last Admin: 11/23/19 08:59 Dose: 2 mg Documented by: Ondansetron HCl (Zofran) 4 mg IV Q8H PRN PRN PRN Reason: NAUSEA/VOMITING Sodium Chloride () 10 - 40 ml IV UD PRN PRN Reason: SALINE FLUSH Last Admin: 11/23/19 09:26 Dose: 10 ml Documented by: STROKE Vital Signs/Narrative: Vital Signs Temp Pulse Resp BP Pulse Ox 11/23/19 15:12 97.8 F 73 18 148/44 H 99 11/23/19 14:46 97.8 F 67 16 158/57 H 97 11/23/19 14:44 65 16 151/62 H 96 11/23/19 14:29 63 18 151/52 H 94 11/23/19 14:28 64 11/23/19 14:18 70 18 11/23/19 14:13 98.9 F 74 18 157/52 H 94 Assessment/Plan This patient was seen in conjunction with TRISHA Mitchell. I have independently interviewed and examined the patient and reviewed pertinent historical, laboratory, and other data. Please refer to TRISHA Mitchell note for his patient's presentation, findings, and recommendations. I have reviewed and his note and concur with his documentation Patient was seen and examined. She complains of right-sided pain. She will be going for laparoscopic appendectomy today. She was receiving FFP at the time of exam. Denied any fever or chills or progressive shortness of breath. Physical Exam: Gen: Looks in some discomfort, obese, does not look her age not pale, not jaundiced CVS:HS I +II, regular, no murmurs RESP: Diminished at lung bases GI: BS present and normal, soft, distended, tenderness over the right lower quadrant., no palpable organs EXT:No edema ASSESSMENT: 1. Acute appendicitis 2. Recent bronchitis 3. Paroxysmal atrial fibrillation 4. Supratherapeutic INR 5. Type II DM 6. Hypothyroidism 7. Hypertension Plan: Continue on IV Zosyn, pain control Follow-up with general surgery recommendations Follow-up on rest of home meds except hold Lantus, aspirin, Coumadin, allopurinol, Lasix Patient will need to be resumed on her Coumadin when the surgeon gives the go-ahead for start of anticoagulation. Code Visit Inpatient E&M: 25230 Subs Hosp L2
[2019-11-23 12:22] LABS: Absolute Lymphocyte Count 3.72 X10^3/uL (0.83-4.51); Absolute Neutrophil Count 15.9 X10^3/uL (2.0-7.7); Basophil# 0.04 X10^3/uL; Basophil% 0.2 % (0-1); Eosinophil# 0.09 X10^3/uL; Eosinophils% 0.4 % (0-5); Hematocrit 30.2 % (37-47); Hemoglobin 9.7 g/dL (12.0-15.0); Lymphocyte # 3.72 X10^3/ul (4.0); Lymphocyte % 17.7 % (19-41); Mean Corp Hgb Conc 32.1 g/dL (32-36); Mean Corpuscular Hgb 29.8 pg (27.0-32.0); Mean Corpuscular Volume 92.9 fL (81-99); Mean Platelet Vol. 10.9 fl (6.2-12.0); Monocyte# 1.24 X10^3/uL; Monocyte% 5.9 % (0-10); NRBC Flagged by Analyzer 0 % (0-5); Neutrophil # 15.87 X10^3/uL (2.7-7.7); Neutrophil % 75.4 % (47-70); Platelet Count 183 K/mm3 (150-450); RBC Distribution Width CV 14.7 % (11.6-14.6); RBC Distribution Width SD 49.3 fl (35.1-43.9); Red Blood Count 3.25 M/mm3 (4.2-5.4); White Blood Count 21.1 K/mm3 (4.4-11.0)
[2019-11-23 12:27] LABS: International Normalized Ratio 1.8
[2019-11-23 12:38] LABS: ALB/GLOB Ratio 0.8 RATIO (0.9-2.4); AST(SGOT) 22 U/L (15-37); Alanine Aminotransfer ALT/SGPT 33 U/L (13-56); Alkaline Phosphatase 90 U/L (45-117); Anion Gap 8 (5-15); BUN 39 mg/dL (7-18); BUN/Creat Ratio 21.2 RATIO (10-20); Calcium,Total 8.3 mg/dL (8.5-10.1); Chloride 105 mmol/L (98-107); Creatinine, Serum 1.84 mg/dL (0.55-1.02); EST Glomerular Filtration Rate 28 mL/min (>60); Est Glom Filt Rate - Afr Amer 34 mL/min (>60); Estimated Creatinine Clearance 19.29 ml/min; Globulin 3.9 g/dL (2.2-4.2); Glucose 114 mg/dL (74-106); Potassium 4.4 mmol/L (3.5-5.1); Protein, Total 6.9 g/dL (6.4-8.2); Sodium Level 140 mmol/L (136-145)
[2019-11-23] MEDS: Bupiv/Epi 0.5% Mpf 30 ML Vial (13:49)
--- NOTE | 2019-11-23 13:57 | OP.PCM_ITS ---
Report of Operation Date of Procedure: 11/23/19 Pre-Operative Diagnosis: Acute appendicitis Post-Operative Diagnosis: Acute perforated appendicitis Surgery/Procedure Performed:: Laparoscopic appendectomy Type of Anesthesia:: General/Supplemental Anesthesiologist: Aubree Cruz Special Medications: Zosyn 3.375 g IV every 8 hr scheduled on the floor for acute appendicitis Specimen's removed: Appendix Estimated Blood Loss (mL): 20 cc Fluids Replaced: 500 cc Description of Procedure: Indications: 79-year-old female presented to the ER with new right lower quadrant pain this morning. On workup she was found to have acute appendicitis on CT and a leukocytosis of 16.4 up to 21. Patient was started on antibiotics in the ER for acute appendicitis-zosyn 4.5 g IV x1, then 3.375g IV q8H on the floor while getting FFP Description of the procedure: The patient was placed on operating table in s upine position. General anesthesia was induced. A timeout was completed verifying correct patient, procedure, position and special equipment prior to beginning procedure. Abdomen was prepped and draped in usual sterile fashion. Incision was made in the natural skin line above the umbilicus with a 15 blade scalpel. The fascia was elevated and incised. Entry into the peritoneum was confirmed visually and no bowel was noted in the vicinity of the incision. The Morales trocar was placed under direct vision. Abdomen insufflated with a pressure of 12-15 mmHg. Patient tolerated insertion well. The scope was inserted and the abdomen inspected. No injuries from initial trocar placement were noted. Purulent fluid was seen in the right lower quadrant, this was suctioned and sent for culture. An direct visualization 2 -5 mm trocars were placed one above the symphysis pubis and below the hairline and one in the left lower quadrant lateral to the rectus muscle. Care is taken to avoid injury to the bladder and inferior epigastric vessels. The table was placed in Trendelenburg position with the right side elevated. The appendix was grasped with atraumatic grasper and elevated. It was noted to be inflamed and perforated. A window was developed in the mesoappendix at the point between the base of the appendix and the cecum. An endoscopic 45 mm linear cutting stapler blue load was then used to divide and staple the base of the appendix. Enseal was used to divide the mesoappendix The appendix was withdrawn into the Morales trocar after being placed endoscopically retrieval bag. Appendix was sent to pathology. The appendiceal stump was then irrigated and hemostasis was assured. Fluid was suctioned no other pathology was identified. Secondary trochars were removed under direct visualization. No bleeding was noted trocar sites. The laparoscope withdrawn and the umbilical trocar removed. The abdomen was allowed to collapse. Local anesthesia of 27 mL of 0.5% Ma rcaine was used at the incision sites. The umbilical trocar site was closed with the [id number] 0 Vicryl suture. The skin was closed up to clear sutures of 4-0 Monocryl and Steri-Strips. The patient was extubated. The patient tolerated the procedure well and was taken to the postanesthesia care unit in satisfactory condition. - Complications none
[2019-11-23 14:31] LABS: Bedside Glucose 124 mg/dL (70-110)
[2019-11-23] MEDS: amLODIPine 10 MG Tablet PO (16:31)
[2019-11-23] MEDS: Levothyroxine 175 MCG Tablet PO (16:31)
[2019-11-23 17:35] LABS: Bedside Glucose 173 mg/dL (70-110)
[2019-11-23] MEDS: oxyCODONE 5 MG Tablet PO (20:58)
[2019-11-23] MEDS: Losartan Potassium 50 MG Tablet PO (21:01)
[2019-11-23] MEDS: Flecainide 100 MG Tablet PO (22:34)
[2019-11-23] MEDS: Insulin Lispro 100 UNIT/ML INSULN.PEN SC (23:55)
[2019-11-24] VITALS (14 sets, daily range): BP systolic 137–165; BP diastolic 52–64; PULSE 61–76; RESP 16–22; TEMP 36.5–36.9; O2SAT 88–98
[2019-11-24 00:01] LABS: Bedside Glucose 186 mg/dL (70-110)
[2019-11-24] MEDS: Levothyroxine 175 MCG Tablet PO (05:53)
[2019-11-24] MEDS: 0.9% Saline Lock 10 ML Syringe IV ×2 (06:02→09:39)
[2019-11-24 06:08] LABS: Absolute Neutrophil Count 14.3 X10^3/uL (2.0-7.7); Basophil# 0.06 X10^3/uL; Basophil% 0.3 % (0-1); Eosinophils% 1.7 % (0-5); Hematocrit 30.7 % (37-47); Hemoglobin 9.5 g/dL (12.0-15.0); Lymphocyte % 10.1 % (19-41); Mean Corp Hgb Conc 30.9 g/dL (32-36); Mean Corpuscular Hgb 29.6 pg (27.0-32.0); Mean Corpuscular Volume 95.6 fL (81-99); Mean Platelet Vol. 11.4 fl (6.2-12.0); Monocyte# 1.35 X10^3/uL; Monocyte% 7.5 % (0-10); NRBC Flagged by Analyzer 0 % (0-5); Neutrophil # 14.29 X10^3/uL (2.7-7.7); Neutrophil % 79.8 % (47-70); Platelet Count 185 K/mm3 (150-450); RBC Distribution Width CV 14.6 % (11.6-14.6); RBC Distribution Width SD 50.2 fl (35.1-43.9); Red Blood Count 3.21 M/mm3 (4.2-5.4); White Blood Count 17.9 K/mm3 (4.4-11.0)
[2019-11-24 06:32] LABS: Anion Gap 5 (5-15); BUN 42 mg/dL (7-18); BUN/Creat Ratio 16.7 RATIO (10-20); Calcium,Total 7.8 mg/dL (8.5-10.1); Chloride 104 mmol/L (98-107); Creatinine, Serum 2.52 mg/dL (0.55-1.02); EST Glomerular Filtration Rate 20 mL/min (>60); Est Glom Filt Rate - Afr Amer 24 mL/min (>60); Estimated Creatinine Clearance 14.08 ml/min; Glucose 104 mg/dL (74-106); Potassium 4.9 mmol/L (3.5-5.1); Sodium Level 135 mmol/L (136-145)
[2019-11-24 06:35] LABS: Bedside Glucose 104 mg/dL (70-110)
[2019-11-24] MEDS: Ipratropium/Albuterol Sulfate 3 ML AMPUL.NEB INHALATION ×4 (06:47→18:46)
--- NOTE | 2019-11-24 08:41 | PN.SURG_ITS ---
Patient Problems: Active and Suspected Problems (Last Reviewed 11/23/19 @ 07:[address] Julio César Armijo MD) Appendicitis (Acute) Subjective: Patient is tolerating clears however denies any flatus?patient has been burping, has been up walking to the restroom not in the halls. Patient's white blood count still 17.9 down from 21 - Physical Exam Vitals/I&O's: Vital Signs Temp Pulse Resp BP Pulse Ox 98.5 F 66 18 137/64 H 93 11/24/19 02:55 11/24/19 06:47 11/24/19 06:47 11/24/19 02:55 11/24/19 06:50 Oxygen Flow Rate (L/min) 1 Oxygen Delivery Method Nasal Cannula Weight: 207 lb 3.752 oz Body Mass Index (BMI) 37.9 Finger Stick Blood Glucose 124 Intake and Output for Last 24 Hours 11/22/19 11/23/19 11/24/19 23:59 23:59 23:59 Intake Total 3426.75 / 3426.75 50 / 50 Output Total 0 / 0 1100 / 1100 Balance 3426.75 / 3426.75 -1050 / -1050 General: Alert, Oriented x3, Cooperative, No apparent distress HEENT: Atraumatic Lungs: Normal air movement Cardiovascular: Regular rate Abdomen: Soft, Distended - Mild, Tender - Near incisions clean dry and intact with op sites Neurological: Cranial nerves II-XII grossly intact Laboratory Results 11/23/19 09:06: POC Glucose 148 H 11/23/19 12:06: POC Glucose 108 11/23/19 12:10: PT 21.0 H, INR 1.8 11/23/19 12:10: WBC 21.1 H, RBC 3.25 L, Hgb 9.7 L, Hct 30.2 L, MCV 92.9, MCH 29.8, MCHC 32.1, RDW Std Deviation 49.3 H, RDW Coeff of [place] 14.7 H, Plt Count 183, MPV 10.9, Immature Gran % (Auto) 0.400, Neut % (Auto) 75.4 H, Lymph % (Auto) 17.7 L, [place] % (Auto) 5.9, Eos % (Auto) 0.4, Baso % (Auto) 0.2, Absolute Neuts (auto) 15.9 H, Absolute Lymphs (auto) 3.72, Nucleated RBC % 0 11/23/19 12:10: Sodium 140, Potassium 4.4, Chloride 105, Carbon Dioxide 27.0, Anion Gap 8, BUN 39 H, Creatinine 1.84 H, Estim Creat Clear Calc 19.29, Est GFR (MDRD) Af Amer 34 L, Est GFR (MDRD) Non-Af 28 L, BUN/Creatinine Ratio 21.2 H, Glucose 114 H, Calcium 8.3 L, Total Bilirubin 0.60, AST 22, ALT 33, Alkaline Phosphatase 90, Total Protein 6.9, Albumin 3.0 L, Globulin 3.9, Albumin/Globulin Ratio 0.8 L 11/23/19 14:19: POC Glucose 124 H 11/23/19 17:25: POC Glucose 173 H 11/23/19 23:52: POC Glucose 186 H 11/24/19 05:00: WBC 17.9 H, RBC 3.21 L, Hgb 9.5 L, Hct 30.7 L, MCV 95.6, MCH 29.6, MCHC 30.9 L, RDW Std Deviation 50.2 H, RDW Coeff of [place] 14.6, Plt Count 185, MPV 11.4, Immature Gran % (Auto) 0.600, Neut % (Auto) 79.8 H, Lymph % ( Auto) 10.1 L, [place] % (Auto) 7.5, Eos % (Auto) 1.7, Baso % (Auto) 0.3, Absolute Neuts (auto) 14.3 H, Absolute Lymphs (auto) 1.80, Nucleated RBC % 0 11/24/19 05:00: Sodium 135 L, Potassium 4.9, Chloride 104, Carbon Dioxide 26.0, Anion Gap 5, BUN 42 H, Creatinine 2.52 H, Estim Creat Clear Calc 14.08, Est GFR (MDRD) Af Amer 24 L, Est GFR (MDRD) Non-Af 20 L, BUN/Creatinine Ratio 16.7, Glucose 104, Calcium 7.8 L 11/24/19 05:51: POC Glucose 104 Current Medications Acetaminophen (Tylenol) 650 mg PO Q6H PRN PRN PRN Reason: Pain Score 1-10/10 Albuterol Sulfate (Ventolin Aerosols) 2.5 mg INHALATION Q2H PRN PRN PRN Reason: WHEEZING Albuterol/Ipratropium (Duoneb) 3 ml INHALATION Q4HWA.RT [facility] Last Admin: 11/24/19 06:47 Dose: 3 ml Documented by: Amlodipine Besylate (Norvasc) 10 mg PO DAILY [facility] Last Admin: 11/23/19 16:31 Dose: 10 mg Documented by: Dextrose (D50w Syringe) 0 gm IV X1 PRN; Protocol PRN Reason: Hypoglycemia Flecainide Acetate (Tambocor) 100 mg PO BID [facility] Last Admin: 11/23/19 22:34 Dose: 100 mg Documented by: Glucagon () 1 mg IM .X1 PRN PRN Reason: Hypoglycemia Hydralazine HCl (Apresoline Iv) 5 mg IV Q6H PRN PRN PRN Reason: SBP > 160 Piperacillin Sod/Tazobactam (Sod 3.375 gm/ Sodium Chloride) 50 mls @ 12.5 mls/hr IV Q8 [facility] Last Admin: 11/24/19 06:01 Dose: 12.5 mls/hr Documented by: Sodium Chloride () 250 mls @ 15 mls/hr IV .[id number] PRN PRN Reason: Saline Flush Last Infusion: 11/24/19 01:01 Dose: 15 mls/hr Documented by: Insulin Human Lispro (Humalog Kwikpen (Bkc)) 0 unit SC Q6 [facility]; Protocol Last Admin: 11/24/19 05:52 Dose: Not Given Documented by: Levothyroxine Sodium (Synthroid) 175 mcg PO DAILY@0600 [facility] Last Admin: 11/24/19 05:53 Dose: 175 mcg Documented by: Losartan Potassium (Cozaar) 50 mg PO BID [facility] Last Admin: 11/23/19 21:01 Dose: 50 mg Documented by: Metoprolol Succinate (Toprol Xl (Beta Trang)) 37.5 mg PO DAILY [facility] Last Admin: 11/23/19 08:55 Dose: 37.5 mg Documented by: Morphine Sulfate () 2 mg IV Q3H PRN PRN PRN Reason: Pain Score 6-10/10 Last Admin: 11/23/19 08:59 Dose: 2 mg Documented by: Ondansetron HCl (Zofran) 4 mg IV Q8H PRN PRN PRN Reason: NAUSEA/VOMITING Oxycodone HCl (Oxyir) 5 - 10 mg PO Q4H PRN PRN PRN Reason: Pain Score 6-10/10 Last Admin: 11/23/19 20:58 Dose: 10 mg Documented by: Pravastatin Sodium (Pravachol) 40 mg PO QHS [facility] Sodium Chloride () 10 - 40 ml IV UD PRN PRN Reason: SALINE FLUSH Last Admin: 11/24/19 06:02 Dose: 10 ml Documented by: Medical Necessity - Tobacco Use Smoking Status: Never smoker Assessment/Plan All Active Problems (Last Reviewed 11/23/19 @ 07:[address] Julio César Armijo MD) Appendicitis (Acute) Garcia's palsy (Resolved) 79 y/o F with acute appendicitis status post lap appendectomy postop day 1, INR of 3.2?on Coumadin for A. fib--status post FFP down to 1.8 1. Continue clears until patient has further bowel function due to patient's perforated appendicitis would be at risk for an ileus. Also give a soapsuds enema later this morning as patient did have constipation on her original CAT scan. 2. Continue Zosyn 3.375g IV q8H Kiara Del Real M.D. Pager: [phone] [facility] [address] [place] [address], [address] [place] [id number] Office: [phone]
[2019-11-24] MEDS: Flecainide 100 MG Tablet PO ×2 (09:38→22:23)
[2019-11-24] MEDS: amLODIPine 10 MG Tablet PO (09:38)
[2019-11-24] MEDS: Losartan Potassium 50 MG Tablet PO (09:38)
[2019-11-24] MEDS: Metoprolol(XL)Succ 25 MG Tablet 37.5 MG PO (09:39)
--- NOTE | 2019-11-24 10:31 | US_ITS ---
STUDY: RENAL ULTRASOUND - COMPLETE REASON FOR EXAM: Female, 79 years old. MEGAN WITH H/O CKD3 TECHNIQUE: Ultrasound evaluation of the kidneys was performed with real-time and static mark-scale imaging. COMPARISON: CT scan abdomen and pelvis 11/23/2019 FINDINGS: RIGHT KIDNEY: Normal location of the right kidney, which is normal in size. The right kidney measures 1.7 x 6.0 x 4.8 cm. There is increased echogenicity. The renal cortex measures 1.4 cm. There is a trace suggestion of a cyst measuring 6.1 mm. There are no right renal calculi. There is no right hydronephrosis. DISTAL RIGHT URETER: There is non-visualization of the distal right ureter. There is no demonstrated right ureterovesical junction calculus. There is no demonstrated right ureteral jet. LEFT KIDNEY: Normal location of the left kidney, which is normal in size. The left kidney measures 12.9 x 5.5 x 5 point cm. There is subtle increased echogenicity The renal cortex measures 1.6 cm. There is no left renal mass or cyst. There are no left renal calculi. There is no left hydronephrosis. DISTAL LEFT URETER: There is non-visualization of the distal left ureter. There is no demonstrated left ureterovesical junction calculus. There is no demonstrated left ureteral jet. BLADDER: Bladder appears mostly decompressed the prevoid volume is 51.8 mL. The wall measures 4.3 mm. Ureteral jets are not seen.. US/Kidney and Bladder IMPRESSION: Nonspecific increased echogenicity of the kidneys suggesting underlying medical renal disease no evidence of hydronephrosis possible 6 mm cyst right kidney. The ureteral jets are not seen. Recommend correlation with clinical findings laboratory values comparison studies demonstrate inflammatory changes in the right lower quadrant at the level of the cecum suspicious for appendicitis as described on the recent study. There is also an abnormal mass within the mesentery that measures 2.7 cm. Electronically Signed: Miriam Warner MD at 13:49 EST Tel , Service support ,
--- NOTE | 2019-11-24 11:20 | CASEMGMT ---
SCAR SHARPE Face to Face with patient for initial transition planning/care coordination assessment. RN CM introduced self and role at [facility]. Patient lying in bed, alert and oriented, family at bedside. Patient willing to participate in assessment and is able to answer all questions appropriately. Care providers, pharmacy, and demographics verified. Patient wishes to discharge home, denies need for home health at this time. Patient states she has no further needs or concerns at this time. CM to follow for discharge planning needs that may arise. PCP: Usha Specialists: Jay tray filler; Chris nephrology Preferred [facility]: [facility] Prescription Benefit: yes Living Will/HPOA: yes, Jey Gillespie LNOK: , sons Living Arrangements: Patient lives with and son in 1 story home with railing and 2 steps to enter the home. Patient independent at home. Transportation: self/ family DME/HHC: Patient states she has shower chair, raised toilet seat, cane, and walker. Patient denies previous HHC or SNF. Disposition Plan: Patient to discharge home with family support and follow-up plans in place. Smiat NESBITT, RN, CM
[2019-11-24] MEDS: Furosemide 40 MG Tablet PO (11:35)
[2019-11-24 12:20] LABS: Bedside Glucose 137 mg/dL (70-110)
--- NOTE | 2019-11-24 12:37 | CHAPLAIN ---
Type of Pastoral Visit _x__ Initial Visit ___ Follow-up Visit ___ On-call Visit ___ General Patient Visit ___ Spiritual Assessment ___ Family Conference ___ Bereavement ___ Rapid Response ___ Code Blue ___ Other (describe below) Pastoral Care Referral From _x__ Patient ___ Family ___ Nurse ___ Physician ___ Fire Regulator ___ Laborer Cutting Tool ___ Other (describe below) Sacrament/Intervention _x__ Active listening ___ Anointing ___ Yazidi ___ Bereavement ___ Communion ___ Estrellita exploration ___ ___ Life review _x__ Prayer ___ Reconciliation ___ Sacrament of Sick _x__ Supportive presence ___ Wedding ___ Other (describe below) Pastoral Comments
--- NOTE | 2019-11-24 15:56 | PCM.CONS.R ---
Problem List (1) MEGAN (acute kidney injury) Status: Acute Consultation - Renal 11/24/19 PCP/ Referring MD: Requesting physician: Dr Askew Primary care physician: Marcelino Moon DO Reason for Consultation:: Acute renal failure - History of Present Illness History of Present Illness: The patient is a 79 year old F who presented to the hospital 2 days ago with severe right lower quadrant abdominal pain. She was diagnosed with appendicitis and is status post appendicectomy. Postoperative course has been uneventful. Renal consulted for acute renal failure. She has known history of CKD stage III secondary to hypertension. Baseline creatinine is around 1.4-1.6. Has some proteinuria in the setting of diabetes. Last urine protein estimation was 1.3 g. Her creatinine on admission was baseline, slowly increased to a value of 2.3 today New medications include Zosyn - Allergies Allergies: Allergies atorvastatin calcium [From Lipitor] Adverse Reaction (Verified 11/22/19 20:19) cough enalapril maleate [From Vasotec] Adverse Reaction (Verified 11/22/19 20:19) cough enalaprilat dihydrate [From Vasotec] Adverse Reaction (Verified 11/22/19 20:19) cough - Current Medications Current Medications: Current Medications Acetaminophen (Tylenol) 650 mg PO Q6H PRN PRN PRN Reason: Pain Score 1-10/10 Albuterol Sulfate (Ventolin Aerosols) 2.5 mg INHALATION Q2H PRN PRN PRN Reason: WHEEZING Albuterol/Ipratropium (Duoneb) 3 ml INHALATION Q4HWA.RT [facility] Last Admin: 11/24/19 14:53 Dose: 3 ml Documented by: Amlodipine Besylate (Norvasc) 10 mg PO DAILY [facility] Last Admin: 11/24/19 09:38 Dose: 10 mg Documented by: Dextrose (D50w Syringe) 0 gm IV X1 PRN; Protocol PRN Reason: Hypoglycemia Flecainide Acetate (Tambocor) 100 mg PO BID [facility] Last Admin: 11/24/19 09:38 Dose: 100 mg Documented by: Glucagon () 1 mg IM .X1 PRN PRN Reason: Hypoglycemia Hydralazine HCl (Apresoline Iv) 5 mg IV Q6H PRN PRN PRN Reason: SBP > 160 Piperacillin Sod/Tazobactam (Sod 3.375 gm/ Sodium Chloride) 50 mls @ 12.5 mls/hr IV Q8 [facility] Last Admin: 11/24/19 15:31 Dose: 12.5 mls/hr Documented by: Sodium Chloride () 250 mls @ 15 mls/hr IV .[id number] PRN PRN Reason: Saline Flush Last Infusion: 11/24/19 11:25 Dose: 15 mls/hr Documented by: Insulin Human Lispro (Humalog Kwikpen (Bkc)) 0 unit SC Q6 [facility]; Protocol Last Admin: 11/24/19 11:37 Dose: Not Given Documented by: Levothyroxine Sodium (Synthroid) 175 mcg PO DAILY@0600 [facility] Last Admin: 11/24/19 05:53 Dose: 175 mcg Documented by: Metoprolol Succinate (Toprol Xl (Beta Trang)) 37.5 mg PO DAILY [facility] Last Admin: 11/24/19 09:39 Dose: 37.5 mg Documented by: Morphine Sulfate () 2 mg IV Q3H PRN PRN PRN Reason: Pain Score 6-10/10 Last Admin: 11/23/19 08:59 Dose: 2 mg Documented by: Ondansetron HCl (Zofran) 4 mg IV Q8H PRN PRN PRN Reason: NAUSEA/VOMITING Oxycodone HCl (Oxyir) 5 - 10 mg PO Q4H PRN PRN PRN Reason: Pain Score 6-10/10 Last Admin: 11/23/19 20:58 Dose: 10 mg Documented by: Pravastatin Sodium (Pravachol) 40 mg PO QHS [facility] Sodium Chloride () 10 - 40 ml IV UD PRN PRN Reason: SALINE FLUSH Last Admin: 11/24/19 09:39 Dose: 10 ml Documented by: - Past Medical History Past Medical History (Chronic Problems): Chronic Problems (Last Reviewed 11/23/19 @ 07:[address] 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 Julio César Armijo MD) Mother CVA (cerebral vascular accident) Hypertension Father Heart disease Myocardial infarction History Items: Hypertension, Stroke Paternal Family History: Family History (Last Reviewed 11/23/19 @ 07:[address] Julio César Armijo MD) Mother CVA (cerebral vascular accident) Hypertension Father Heart disease Myocardial infarction History Items: Heart Disease Review of Systems Constitutional: Denies: Chills, Fever, Weight Change HEENT: Denies: Head Aches, Sinus Congestion, Sinus Drainage Cardiovascular: Denies: Chest Pain, Palpitations Respiratory: Denies: Cough, Shortness of breath at rest, Sputum production Gastrointestinal: Reports: Abdominal Pain. Denies: Nausea, Vomiting Genitourinary: Denies: Dysuria Musculoskeletal: Denies: Joint Pain, Joint Tenderness Skin: Denies: Rash, Wounds Neurological: Denies: Numbness, Tingling, Focal weakness Psychiatric: Denies: Anxiety, Depression, Homicidal Ideations, Suicidal Ideations Hematologic/ Lymphatic: Denies: Easy Bruising, Easy Bleeding Patient Problems: Active and Suspected Problems (Last Reviewed 11/23/19 @ 07:[address] Julio César Armijo MD) Appendicitis (Acute) MEGAN (acute kidney injury) (Acute) - Physical Exam Vitals/I&O's: Vital Signs Temp Pulse Resp BP Pulse Ox 98.4 F 69 18 165/54 H 94 11/24/19 15:00 11/24/19 15:00 11/24/19 15:00 11/24/19 15:00 11/24/19 15:00 Oxygen Flow Rate (L/min) 4 Oxygen Delivery Method Nasal Cannula Weight: 94 kg Body Mass Index (BMI) 37.9 Finger Stick Blood Glucose 124 Intake and Output for Last 24 Hours 11/22/19 11/23/19 11/24/19 23:59 23:59 23:59 Intake Total 3426.75 / 3426.75 1574.75 / 1574.75 Output Total 0 / 0 1130 / 1130 Balance 3426.75 / 3426.75 444.75 / 444.75 General: Alert, Oriented x3, Cooperative HEENT: Atraumatic, PERRLA, EOMI, Normocephalic Neck: Supple, No JVD, Negative Carotid Bruits Lungs: Clear to auscultation, Normal air movement Cardiovascular: Regular rate, No murmurs Abdomen: Bowel Sounds Present, Soft, Non Tender Extremities: No edema, Capillary Refill Less than 3 Seconds Skin: No rashes, No breakdown Musculoskeletal: No Tenderness to Palpation of Joints or Extremities Neurological: Cranial nerves II-XII grossly intact Psych/Mental Status: Normal Affect, Appropriate Microbiology Past 72 Hours 11/23/19 13:16 Incision/Surgical Site Gram Stain - Final 11/23/19 13:16 Incision/Surgical Site Wound Culture - 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 Laboratory Results 11/23/19 17:25: POC Glucose 173 H 11/23/19 23:52: POC Glucose 186 H 11/24/19 05:00: WBC 17.9 H, RBC 3.21 L, Hgb 9.5 L, Hct 30.7 L, MCV 95.6, MCH 29.6, MCHC 30.9 L, RDW Std Deviation 50.2 H, RDW Coeff of Ashley 14.6, Plt Count 185, MPV 11.4, Immature Gran % (Auto) 0.600, Neut % (Auto) 79.8 H, Lymph % (Auto) 10.1 L, [place] % (Auto) 7.5, Eos % (Auto) 1.7, Baso % (Auto) 0.3, Absolute Neuts (auto) 14.3 H, Absolute Lymphs (auto) 1.80, Nucleated RBC % 0 11/24/19 05:00: Sodium 135 L, Potassium 4.9, Chloride 104, Carbon Dioxide 26.0, Anion Gap 5, BUN 42 H, Creatinine 2.52 H, Estim Creat Clear Calc 14.08, Est GFR (MDRD) Af Amer 24 L, Est GFR (MDRD) Non-Af 20 L, BUN/Creatinine Ratio 16.7, Glucose 104, Calcium 7.8 L 11/24/19 05:51: POC Glucose 104 11/24/19 11:29: POC Glucose 137 H Current Medications Acetaminophen (Tylenol) 650 mg PO Q6H PRN PRN PRN Reason: Pain Score 1-10/10 Albuterol Sulfate (Ventolin Aerosols) 2.5 mg INHALATION Q2H PRN PRN PRN Reason: WHEEZING Albuterol/Ipratropium (Duoneb) 3 ml INHALATION Q4HWA.RT [facility] Last Admin: 11/24/19 14:53 Dose: 3 ml Documented by: Amlodipine Besylate (Norvasc) 10 mg PO DAILY [facility] Last Admin: 11/24/19 09:38 Dose: 10 mg Documented by: Dextrose (D50w Syringe) 0 gm IV X1 PRN; Protocol PRN Reason: Hypoglycemia Flecainide Acetate (Tambocor) 100 mg PO BID [facility] Last Admin: 11/24/19 09:38 Dose: 100 mg Documented by: Glucagon () 1 mg IM .X1 PRN PRN Reason: Hypoglycemia Hydralazine HCl (Apresoline Iv) 5 mg IV Q6H PRN PRN PRN Reason: SBP > 160 Piperacillin Sod/Tazobactam (Sod 3.375 gm/ Sodium Chloride) 50 mls @ 12.5 mls/hr IV Q8 [facility] Last Admin: 11/24/19 15:31 Dose: 12.5 mls/hr Documented by: Sodium Chloride () 250 mls @ 15 mls/hr IV .[id number] PRN PRN Reason: Saline Flush Last Infusion: 11/24/19 11:25 Dose: 15 mls/hr Documented by: Insulin Human Lispro (Humalog Kwikpen (Bkc)) 0 unit SC Q6 [facility]; Protocol Last Admin: 11/24/19 11:37 Dose: Not Given Documented by: Levothyroxine Sodium (Synthroid) 175 mcg PO DAILY@0600 [facility] Last Admin: 11/24/19 05:53 Dose: 175 mcg Documented by: Metoprolol Succinate (Toprol Xl (Beta Trang)) 37.5 mg PO DAILY [facility] Last Admin: 11/24/19 09:39 Dose: 37.5 mg Documented by: Morphine Sulfate () 2 mg IV Q3H PRN PRN PRN Reason: Pain Score 6-10/10 Last Admin: 11/23/19 08:59 Dose: 2 mg Documented by: Ondansetron HCl (Zofran) 4 mg IV Q8H PRN PRN PRN Reason: NAUSEA/VOMITING Oxycodone HCl (Oxyir) 5 - 10 mg PO Q4H PRN PRN PRN Reason: Pain Score 6-10/10 Last Admin: 11/23/19 20:58 Dose: 10 mg Documented by: Pravastatin Sodium (Pravachol) 40 mg PO QHS [facility] Sodium Chloride () 10 - 40 ml IV UD PRN PRN Reason: SALINE FLUSH Last Admin: 11/24/19 09:39 Dose: 10 ml Documented by: Assessment/Plan All Active Problems (Last Reviewed 11/23/19 @ 07:[address] Julio César Armijo MD) Appendicitis (Acute) MEGAN (acute kidney injury) (Acute) Garcia's palsy (Resolved) Acute renal failure kidney disease stage III She has known history of CKD stage III with baseline creatinine around 1.4-1.6. Now has acute renal failure creatinine up to 2.3. Initial CT abdomen did not show any hydronephrosis Urine analysis shows protein which is baseline she did have a CT abdomen with contrast on the . Most likely has contrast nephropathy Blood pressure is not low Reviewed medication list, hold Lasix and losartan for now Proteinuria. Has about 1.3 g of protein at baseline. Usually on losartan, hold for now History of fluid retention. As per our office records, she is on Lasix and Aldactone. Currently I would hold all the diuretics since she is not eating much. Thank you for the consult. .
--- NOTE | 2019-11-24 15:56 | PCM.PN.HOSP ---
Patient Problems: Active and Suspected Problems (Last Reviewed 11/23/19 @ 07:[address] Julio César Armijo MD) Appendicitis (Acute) Reason for Visit: Postop lab appendectomy\ Urine retention Objective: Patient had urinary retention and straight cath was done. Straight cath 1130 mL. Kidneys and bladder ultrasound ordered. Earlier patient had IV fluid bolus. Lasix and oral postoperatively but resumed. White count is still high but it has decreased. Discussed with surgeon. Vitals/I&O's: Vital Signs Temp Pulse Resp BP Pulse Ox 98.4 F 69 18 165/54 H 94 11/24/19 15:00 11/24/19 15:00 11/24/19 15:00 11/24/19 15:00 11/24/19 15:00 Oxygen Flow Rate (L/min) 4 Oxygen Delivery Method Nasal Cannula Weight: 207 lb 3.752 oz Body Mass Index (BMI) 37.9 Finger Stick Blood Glucose 124 Intake and Output for Last 24 Hours 11/22/19 11/23/19 11/24/19 23:59 23:59 23:59 Intake Total 3426.75 / 3426.75 1574.75 / 1574.75 Output Total 0 / 0 1130 / 1130 Balance 3426.75 / 3426.75 444.75 / 444.75 General: Alert, Oriented x3, Cooperative HEENT: Atraumatic, PERRLA, EOMI, Normocephalic Neck: Supple, No JVD, Negative Carotid Bruits Lungs: Clear to auscultation, No rhonchi, No wheeze, No rales, Diminished Cardiovascular: Regular rate, Regular Rhythm, Normal S1, Normal S2, No murmurs Abdomen: Bowel Sounds Present, Soft, Non-Distended, - - Expected postop tenderness. Patient passing flatus. 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 Results 11/23/19 17:25: POC Glucose 173 H 11/23/19 23:52: POC Glucose 186 H 11/24/19 05:00: WBC 17.9 H, RBC 3.21 L, Hgb 9.5 L, Hct 30.7 L, MCV 95.6, MCH 29.6, MCHC 30.9 L, RDW Std Deviation 50.2 H, RDW Coeff of Ashley 14.6, Plt Count 185, MPV 11.4, Immature Gran % (Auto) 0.600, Neut % (Auto) 79.8 H, Lymph % (Auto) 10.1 L, [place] % (Auto) 7.5, Eos % (Auto) 1.7, Baso % (Auto) 0.3, Absolute Neuts (auto) 14.3 H, Absolute Lymphs (auto) 1.80, Nucleated RBC % 0 11/24/19 05:00: Sodium 135 L, Potassium 4.9, Chloride 104, Carbon Dioxide 26.0, Anion Gap 5, BUN 42 H, Creatinine 2.52 H, Estim Creat Clear Calc 14.08, Est GFR (MDRD) Af Amer 24 L, Est GFR (MDRD) Non-Af 20 L, BUN/Creatinine Ratio 16.7, Glucose 104, Calcium 7.8 L 11/24/19 05:51: POC Glucose 104 11/24/19 11:29: POC Glucose 137 H Current Medications Acetaminophen (Tylenol) 650 mg PO Q6H PRN PRN PRN Reason: Pain Score 1-10/10 Albuterol Sulfate (Ventolin Aerosols) 2.5 mg INHALATION Q2H PRN PRN PRN Reason: WHEEZING Albuterol/Ipratropium (Duoneb) 3 ml INHALATION Q4HWA.RT [facility] Last Admin: 11/24/19 14:53 Dose: 3 ml Documented by: Amlodipine Besylate (Norvasc) 10 mg PO DAILY [facility] Last Admin: 11/24/19 09:38 Dose: 10 mg Documented by: Dextrose (D50w Syringe) 0 gm IV X1 PRN; Protocol PRN Reason: Hypoglycemia Flecainide Acetate (Tambocor) 100 mg PO BID [facility] Last Admin: 11/24/19 09:38 Dose: 100 mg Documented by: Glucagon () 1 mg IM .X1 PRN PRN Reason: Hypoglycemia Hydralazine HCl (Apresoline Iv) 5 mg IV Q6H PRN PRN PRN Reason: SBP > 160 Piperacillin Sod/Tazobactam (Sod 3.375 gm/ Sodium Chloride) 50 mls @ 12.5 mls/hr IV Q8 [facility] Last Admin: 11/24/19 15:31 Dose: 12.5 mls/hr Documented by: Sodium Chloride () 250 mls @ 15 mls/hr IV .[id number] PRN PRN Reason: Saline Flush Last Infusion: 11/24/19 11:25 Dose: 15 mls/hr Documented by: Insulin Human Lispro (Humalog Kwikpen (Bkc)) 0 unit SC Q6 [facility]; Protocol Last Admin: 11/24/19 11:37 Dose: Not Given Documented by: Levothyroxine Sodium (Synthroid) 175 mcg PO DAILY@0600 [facility] Last Admin: 11/24/19 05:53 Dose: 175 mcg Documented by: Metoprolol Succinate (Toprol Xl (Beta Trang)) 37.5 mg PO DAILY [facility] Last Admin: 11/24/19 09:39 Dose: 37.5 mg Documented by: Morphine Sulfate () 2 mg IV Q3H PRN PRN PRN Reason: Pain Score 6-10/10 Last Admin: 11/23/19 08:59 Dose: 2 mg Documented by: Ondansetron HCl (Zofran) 4 mg IV Q8H PRN PRN PRN Reason: NAUSEA/VOMITING Oxycodone HCl (Oxyir) 5 - 10 mg PO Q4H PRN PRN PRN Reason: Pain Score 6-10/10 Last Admin: 11/23/19 20:58 Dose: 10 mg Documented by: Pravastatin Sodium (Pravachol) 40 mg PO QHS [facility] Sodium Chloride () 10 - 40 ml IV UD PRN PRN Reason: SALINE FLUSH Last Admin: 11/24/19 09:39 Dose: 10 ml Documented by: STROKE Vital Signs/Narrative: Vital Signs Temp Pulse Resp BP Pulse Ox 11/24/19 15:00 98.4 F 69 18 165/54 H 94 Medical Necessity - Tobacco Use Smoking Status: Never smoker Assessment/Plan All Active Problems (Last Reviewed 11/23/19 @ 07:[address] Julio César Armijo MD) Appendicitis (Acute) Garcia's palsy (Resolved) The patient is a 79 year old F with a significant for paroxysmal A. fib; permanent pacemaker; sick sinus syndrome who presents emergency department with excruciating right lower quadrant pain and abdomen and pelvis CT showing acute appendicitis. 1. Acute perforated appendicitis: Had laparoscopic appendectomy on 11/23/2019. On zosyn. Patient is afebrile but has high white count. 2. Recent bronchitis - continue aerosols, mucinex, incentive spirometer 3. Acute on CKD stage IV with urine retention most probably postoperative urine retention. Interior Paneler is been consulted. Will start Morales catheter for drainage. Patient creatinine jumped up from 1.69-2.52 most probably Intra-Op urine retention. 4. pAfib - Flecainide, metoprolol. Rate stable. Hold Coumadin. 5. Dmt2 - SSI, on Lantus. On clear liquids 6. Hx SSS - has pacemaker 7. hypothyroid - synthroid 8. 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 10. HTN - elevated. home meds + prn hydralazine. DVT ppx: SCDs Total time of the visit including total time spent in counseling or coordination of care, (more than 50% of the total time, spent in obtaining medical information from nurses and other ancillary care providers), , review of labs and imaging is 30 minutes Code Visit Inpatient E&M: 84131 [facility] L3
--- NOTE | 2019-11-24 16:00 | NURSING ---
Pt straight cath'ed at 1330 due to inability to urinate since change of shift at 0730. Pt complaining of abdominal pressure similar to what she felt this morning prior to being straight cathed. Straight cath introduced, after education regarding use, via sterile technique and pt tolerated well.
--- NOTE | 2019-11-24 16:34 | RAD_ITS ---
STUDY: X-RAY CHEST REASON FOR EXAM: Female, 79 years old. increased oxygen need, shortness of breath, patient had a recent appy TECHNIQUE: Portable chest COMPARISON: 02/09/2019. FINDINGS: There is worsening left lower lobe retrocardiac opacity. There is stable mild cardiomegaly. There is a cardiac pacemaker in place. Normal mediastinum and jamila. Normal visualized pulmonary arteries. Normal visualized aortic arch and descending thoracic aorta. Normal visualized thoracic spine. Normal visualized ribs, clavicles, and shoulders. There is no demonstrated abnormality of the visualized soft tissue structures of the upper abdomen. RAD/Chest 1 View (Portable) IMPRESSION: Stable mild cardiomegaly Worsening left lower lobe retrocardiac opacity infiltrate and/or atelectasis Cardiac pacemaker Electronically Signed: Vincent Silvestre, at 18:47 EST Tel , Service support ,
--- NOTE | 2019-11-24 16:50 | RAD_ITS ---
STUDY: X-RAY - ABDOMEN/PELVIS REASON FOR EXAM: Female, 79 years old. nausea, vomiting, patient had recent appy TECHNIQUE: KUB COMPARISON: CT abdomen pelvis 11/23/2019. FINDINGS: Normal visualized lung bases. There are distended loops of bowel predominantly colon. There is no demonstrated free abdominal air. The visualized liver, spleen and kidneys are grossly normal in size and morphology. Normal soft tissue structures. Normal visualized osseous structures. RAD/Abdomen Single View (Portable) IMPRESSION: Likely ileus with distended loops of bowel predominantly colon Electronically Signed: Vincent Silvestre, at 18:50 EST Tel , Service support ,
[2019-11-24] MEDS: Insulin Lispro 100 UNIT/ML INSULN.PEN SC ×2 (18:29→23:30)
[2019-11-24] MEDS: Tamsulosin HCl 0.4 MG Capsule PO (18:31)
[2019-11-24 18:46] LABS: Bedside Glucose 168 mg/dL (70-110)
[2019-11-24] MEDS: Pravastatin 40 MG Tablet PO (22:23)
[2019-11-24 23:41] LABS: Bedside Glucose 165 mg/dL (70-110)
[2019-11-24] MEDS: Albuterol 2.5 MG/3 ML VIAL.NEB. INHALATION (23:43)
[2019-11-25] VITALS (11 sets, daily range): BP systolic 134–145; BP diastolic 56–79; PULSE 62–99; RESP 18–22; TEMP 36.8–37.2; O2SAT 92–94
[2019-11-25] MEDS: Levothyroxine 175 MCG Tablet PO (05:39)
[2019-11-25 05:50] LABS: Bedside Glucose 139 mg/dL (70-110)
[2019-11-25 05:52] LABS: Absolute Lymphocyte Count 1.34 X10^3/uL (0.83-4.51); Basophil# 0.03 X10^3/uL; Basophil% 0.2 % (0-1); Eosinophil# 0.23 X10^3/uL; Eosinophils% 1.6 % (0-5); Hemoglobin 9.2 g/dL (12.0-15.0); Lymphocyte # 1.34 X10^3/ul (4.0); Lymphocyte % 9.5 % (19-41); Mean Corp Hgb Conc 31.7 g/dL (32-36); Mean Corpuscular Hgb 29.2 pg (27.0-32.0); Mean Corpuscular Volume 92.1 fL (81-99); Mean Platelet Vol. 11.4 fl (6.2-12.0); Monocyte# 1.42 X10^3/uL; Monocyte% 10.1 % (0-10); NRBC Flagged by Analyzer 0 % (0-5); Neutrophil # 11.03 X10^3/uL (2.7-7.7); Neutrophil % 78.1 % (47-70); Platelet Count 170 K/mm3 (150-450); RBC Distribution Width CV 14.4 % (11.6-14.6); RBC Distribution Width SD 48.1 fl (35.1-43.9); Red Blood Count 3.15 M/mm3 (4.2-5.4); White Blood Count 14.1 K/mm3 (4.4-11.0)
[2019-11-25 06:00] LABS: International Normalized Ratio 1.6; Prothrombin Time (Protime)PT. 18.5 SECONDS (11.7-14.9)
[2019-11-25 06:13] LABS: Anion Gap 8 (5-15); BUN 49 mg/dL (7-18); BUN/Creat Ratio 13.8 RATIO (10-20); Calcium,Total 7.6 mg/dL (8.5-10.1); Chloride 102 mmol/L (98-107); Creatinine, Serum 3.55 mg/dL (0.55-1.02); EST Glomerular Filtration Rate 13 mL/min (>60); Est Glom Filt Rate - Afr Amer 16 mL/min (>60); Glucose 126 mg/dL (74-106); Potassium 4.6 mmol/L (3.5-5.1); Sodium Level 131 mmol/L (136-145)
[2019-11-25] MEDS: 0.9% Saline Lock 10 ML Syringe IV ×3 (06:38→22:14)
[2019-11-25] MEDS: Ipratropium/Albuterol Sulfate 3 ML AMPUL.NEB INHALATION ×4 (06:53→23:30)
--- NOTE | 2019-11-25 08:40 | PN.SURG_ITS ---
Patient Problems: Active and Suspected Problems (Last Reviewed 11/23/19 @ 07:[address] Julio César Armijo MD) Appendicitis (Acute) MEGAN (acute kidney injury) (Acute) Subjective: Patient still denies any gas, patient is on 5 L O2 did walk in the halls couple times last night, patient is only able to take sips that she has nausea due to her ileus, patient's creatinine went up to 3.5 from 2.5 nephrology was consulted likely contrast-induced nephropathy, low urine output to give a 500 cc bolus this morning - Physical Exam Vitals/I&O's: Vital Signs Temp Pulse Resp BP Pulse Ox 98.9 F 87 20 H 141/73 H 93 11/25/19 05:35 11/25/19 05:35 11/25/19 05:35 11/25/19 05:35 11/25/19 05:35 Oxygen Flow Rate (L/min) 5 Oxygen Delivery Method Nasal Cannula Weight: 216 lb 7.903 oz Body Mass Index (BMI) 37.9 Finger Stick Blood Glucose 124 Intake and Output for Last 24 Hours 11/23/19 11/24/19 11/25/19 23:59 23:59 23:59 Intake Total 3426.75 / 3426.75 1910.50 / 1910.50 620 / 620 Output Total 0 / 0 1705 / 1705 90 / 90 Balance 3426.75 / 3426.75 205.50 / 205.50 530 / 530 General: Alert, Oriented x3, Cooperative, No apparent distress HEENT: Atraumatic Lungs: Normal air movement Cardiovascular: Regular rate Abdomen: Soft, Distended - Mild, Tender - At incisions clean dry and intact, and mild on the right side, no peritoneal signs Extremities: No clubbing, No cyanosis, No edema Neurological: Cranial nerves II-XII grossly intact Microbiology Past 72 Hours 11/23/19 13:16 Incision/Surgical Site Gram Stain - Final 11/23/19 13:16 Incision/Surgical Site Wound 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 Results 11/24/19 11:29: POC Glucose 137 H 11/24/19 18:27: POC Glucose 168 H 11/24/19 23:29: POC Glucose 165 H 11/25/19 05:12: PT 18.5 H, INR 1.6 11/25/19 05:12: WBC 14.1 H, RBC 3.15 L, Hgb 9.2 L, Hct 29.0 L, MCV 92.1, MCH 29.2, MCHC 31.7 L, RDW Std Deviation 48.1 H, RDW Coeff of Ashley 14.4, Plt Count 170, MPV 11.4, Immature Gran % (Auto) 0.500, Neut % (Auto) 78.1 H, Lymph % (Auto) 9.5 L, [place] % (Auto) 10.1 H, Eos % (Auto) 1.6, Baso % (Auto) 0.2, Absolute Neuts (auto) 11.0 H, Absolute Lymphs (auto) 1.34, Nucleated RBC % 0 11/25/19 05:12: Sodium 131 L, Potassium 4.6, Chloride 102, Carbon Dioxide 21.0, Anion Gap 8, BUN 49 H, Creatinine 3.55 H, Estim Creat Clear Calc 10.00, Est GFR (MDRD) Af Amer 16 L, Est GFR (MDRD) Non-Af 13 L, BUN/Creatinine Ratio 13.8, Glucose 126 H, Calcium 7.6 L 11/25/19 05:38: POC Glucose 139 H Current Medications Acetaminophen (Tylenol) 650 mg PO Q6H PRN PRN PRN Reason: Pain Score 1-10/10 Albuterol Sulfate (Ventolin Aerosols) 2.5 mg INHALATION Q2H PRN PRN PRN Reason: WHEEZING Last Admin: 11/24/19 23:43 Dose: 2.5 mg Documented by: Albuterol/Ipratropium (Duoneb) 3 ml INHALATION Q4HWA.RT ON LICENSE OF [facility] Last Admin: 11/25/19 06:53 Dose: 3 ml Documented by: Amlodipine Besylate (Norvasc) 10 mg PO DAILY ON LICENSE OF [facility] Last Admin: 11/24/19 09:38 Dose: 10 mg Documented by: Dextrose (D50w Syringe) 0 gm IV X1 PRN; Protocol PRN Reason: Hypoglycemia Flecainide Acetate (Tambocor) 100 mg PO BID ON LICENSE OF [facility] Last Admin: 11/24/19 22:23 Dose: 100 mg Documented by: Glucagon () 1 mg IM .X1 PRN PRN Reason: Hypoglycemia Hydralazine HCl (Apresoline Iv) 5 mg IV Q6H PRN PRN PRN Reason: SBP > 160 Sodium Chloride () 250 mls @ 15 mls/hr IV .[id number] PRN PRN Reason: Saline Flush Last Infusion: 11/25/19 07:09 Dose: 15 mls/hr Documented by: Piperacillin Sod/Tazobactam (Sod 3.375 gm/ Sodium Chloride) 50 mls @ 12.5 mls/hr IV Q12 ON LICENSE OF [facility] Sodium Chloride () 1,000 mls @ 100 mls/hr IV .Q10H ON LICENSE OF [facility] Stop: 11/26/19 04:34 Insulin Human Lispro (Humalog Kwikpen (Bkc)) 0 unit SC Q6 ON LICENSE OF [facility]; Protocol Last Admin: 11/25/19 05:38 Dose: Not Given Documented by: Levothyroxine Sodium (Synthroid) 175 mcg PO DAILY@0600 ON LICENSE OF [facility] Last Admin: 11/25/19 05:39 Dose: 175 mcg Documented by: Metoprolol Succinate (Toprol Xl (Beta Trang)) 37.5 mg PO DAILY ON LICENSE OF [facility] Last Admin: 11/24/19 09:39 Dose: 37.5 mg Documented by: Morphine Sulfate () 2 mg IV Q3H PRN PRN PRN Reason: Pain Score 6-10/10 Last Admin: 11/23/19 08:59 Dose: 2 mg Documented by: Ondansetron HCl (Zofran) 4 mg IV Q8H PRN PRN PRN Reason: NAUSEA/VOMITING Oxycodone HCl (Oxyir) 5 - 10 mg PO Q4H PRN PRN PRN Reason: Pain Score 6-10/10 Last Admin: 11/23/19 20:58 Dose: 10 mg Documented by: Pravastatin Sodium (Pravachol) 40 mg PO QHS ON LICENSE OF [facility] Last Admin: 11/24/19 22:23 Dose: 40 mg Documented by: Sodium Chloride () 10 - 40 ml IV UD PRN PRN Reason: SALINE FLUSH Last Admin: 11/25/19 06:38 Dose: 10 ml Documented by: Tamsulosin HCl (Flomax) 0.4 mg PO DAILY@1730 ON LICENSE OF [facility] Medical Necessity - Tobacco Use Smoking Status: Never smoker Assessment/Plan All Active Problems (Last Reviewed 11/23/19 @ 07:[address] Julio César Armijo MD) Appendicitis (Acute) MEGAN (acute kidney injury) (Acute) Garcia's palsy (Resolved) 79 y/o F with acute appendicitis status post lap appendectomy postop day 2, INR of 3.2?on Coumadin for A. fib--status post FFP down to 1.8, acute kidney injury on chronic kidney disease, postop ileus 1. Okay to continue sips, encourage ambulation in halls, await bowel function, KUB showed gas and stool in the colon 2. Continue Zosyn 3.375g IV q12H, due to kidney function may even need to change dose again 3. Nephrology consulted due to acute kidney injury likely due to contrast. Did discuss with Dr. Askew will put patient on 100 cc/hr of normal saline and continue to monitor, Morales for I's and O's. Kiara Del Real M.D. Pager: [phone] [facility] [address] [place] [address], [address] [place] [address] Office: [phone]
[2019-11-25] MEDS: Metoprolol(XL)Succ 25 MG Tablet 37.5 MG PO (09:31)
[2019-11-25] MEDS: Flecainide 100 MG Tablet PO ×2 (09:31→22:11)
[2019-11-25] MEDS: amLODIPine 10 MG Tablet PO (09:31)
[2019-11-25] MEDS: 0.9% Normal Saline 1,000 ML 100 ML IV (10:15)
[2019-11-25 12:01] LABS: Bedside Glucose 136 mg/dL (70-110)
--- NOTE | 2019-11-25 12:10 | PCM.PN.REN ---
Patient Problems: Active and Suspected Problems (Last Reviewed 11/23/19 @ 07:[address] Julio César Armijo MD) Appendicitis (Acute) MEGAN (acute kidney injury) (Acute) Subjective: not passing gas yet - Physical Exam Vitals/I&O's: Vital Signs Temp Pulse Resp BP Pulse Ox 98.2 F 89 18 144/79 H 94 11/25/19 09:30 11/25/19 09:31 11/25/19 09:30 11/25/19 09:30 11/25/19 09:30 Oxygen Flow Rate (L/min) 5 Oxygen Delivery Method Nasal Cannula Weight: 98.2 kg Body Mass Index (BMI) 37.9 Finger Stick Blood Glucose 124 Intake and Output for Last 24 Hours 11/23/19 11/24/19 11/25/19 23:59 23:59 23:59 Intake Total 3426.75 / 3426.75 1910.50 / 1910.50 653.75 / 653.75 Output Total 0 / 0 1705 / 1705 90 / 90 Balance 3426.75 / 3426.75 205.50 / 205.50 563.75 / 563.75 General: Alert, Oriented x3, Cooperative HEENT: Atraumatic, PERRLA, EOMI, Normocephalic Neck: Supple, No JVD, Negative Carotid Bruits Lungs: Clear to auscultation, Normal air movement Cardiovascular: Regular rate, No murmurs Abdomen: Bowel Sounds Present, Soft, Non Tender Extremities: No edema, Capillary Refill Less than 3 Seconds Skin: No rashes, No breakdown Musculoskeletal: No Tenderness to Palpation of Joints or Extremities Neurological: Cranial nerves II-XII grossly intact Psych/Mental Status: Normal Affect, Appropriate Microbiology Past 72 Hours 11/23/19 13:16 Incision/Surgical Site Gram Stain - Final 11/23/19 13:16 Incision/Surgical Site Wound Culture - Final Escherichia coli Laboratory Results 11/24/19 11:29: POC Glucose 137 H 11/24/19 18:27: POC Glucose 168 H 11/24/19 23:29: POC Glucose 165 H 11/25/19 05:12: PT 18.5 H, INR 1.6 11/25/19 05:12: WBC 14.1 H, RBC 3.15 L, Hgb 9.2 L, Hct 29.0 L, MCV 92.1, MCH 29.2, MCHC 31.7 L, RDW Std Deviation 48.1 H, RDW Coeff of Ashley 14.4, Plt Count 170, MPV 11.4, Immature Gran % (Auto) 0.500, Neut % (Auto) 78.1 H, Lymph % (Auto) 9.5 L, [place] % (Auto) 10.1 H, Eos % (Auto) 1.6, Baso % (Auto) 0.2, Absolute Neuts (auto) 11.0 H, Absolute Lymphs (auto) 1.34, Nucleated RBC % 0 11/25/19 05:12: Sodium 131 L, Potassium 4.6, Chloride 102, Carbon Dioxide 21.0, Anion Gap 8, BUN 49 H, Creatinine 3.55 H, Estim Creat Clear Calc 10.00, Est GFR (MDRD) Af Amer 16 L, Est GFR (MDRD) Non-Af 13 L, BUN/Creatinine Ratio 13.8, Glucose 126 H, Calcium 7.6 L 11/25/19 05:38: POC Glucose 139 H 11/25/19 11:34: POC Glucose 136 H Current Medications Acetaminophen (Tylenol) 650 mg PO Q6H PRN PRN PRN Reason: Pain Score 1-10/10 Albuterol Sulfate (Ventolin Aerosols) 2.5 mg INHALATION Q2H PRN PRN PRN Reason: WHEEZING Last Admin: 11/24/19 23:43 Dose: 2.5 mg Documented by: Albuterol/Ipratropium (Duoneb) 3 ml INHALATION Q4HWA.RT [facility] Last Admin: 11/25/19 10:43 Dose: Not Given Documented by: Amlodipine Besylate (Norvasc) 10 mg PO DAILY [facility] Last Admin: 11/25/19 09:31 Dose: 10 mg Documented by: Dextrose (D50w Syringe) 0 gm IV X1 PRN; Protocol PRN Reason: Hypoglycemia Flecainide Acetate (Tambocor) 100 mg PO BID [facility] Last Admin: 11/25/19 09:31 Dose: 100 mg Documented by: Glucagon () 1 mg IM .X1 PRN PRN Reason: Hypoglycemia Hydralazine HCl (Apresoline Iv) 5 mg IV Q6H PRN PRN PRN Reason: SBP > 160 Sodium Chloride () 250 mls @ 15 mls/hr IV .[id number] PRN PRN Reason: Saline Flush Last Infusion: 11/25/19 10:20 Dose: 0 mls/hr Documented by: Piperacillin Sod/Tazobactam (Sod 3.375 gm/ Sodium Chloride) 50 mls @ 12.5 mls/hr IV Q12 [facility] Last Admin: 11/25/19 10:20 Dose: 12.5 mls/hr Documented by: Sodium Chloride () 1,000 mls @ 100 mls/hr IV .Q10H [facility] Stop: 11/26/19 04:34 Last Admin: 11/25/19 10:15 Dose: 100 mls/hr Documented by: Insulin Human Lispro (Humalog Kwikpen (Bkc)) 0 unit SC Q6 [facility]; Protocol Last Admin: 11/25/19 05:38 Dose: Not Given Documented by: Levothyroxine Sodium (Synthroid) 175 mcg PO DAILY@0600 [facility] Last Admin: 11/25/19 05:39 Dose: 175 mcg Documented by: Metoprolol Succinate (Toprol Xl (Beta Trang)) 37.5 mg PO DAILY [facility] Last Admin: 11/25/19 09:31 Dose: 37.5 mg Documented by: Morphine Sulfate () 2 mg IV Q3H PRN PRN PRN Reason: Pain Score 6-10/10 Last Admin: 11/23/19 08:59 Dose: 2 mg Documented by: Ondansetron HCl (Zofran) 4 mg IV Q8H PRN PRN PRN Reason: NAUSEA/VOMITING Oxycodone HCl (Oxyir) 5 - 10 mg PO Q4H PRN PRN PRN Reason: Pain Score 6-10/10 Last Admin: 11/23/19 20:58 Dose: 10 mg Documented by: Pravastatin Sodium (Pravachol) 40 mg PO QHS [facility] Last Admin: 11/24/19 22:23 Dose: 40 mg Documented by: Sodium Chloride () 10 - 40 ml IV UD PRN PRN Reason: SALINE FLUSH Last Admin: 11/25/19 10:16 Dose: 10 ml Documented by: Tamsulosin HCl (Flomax) 0.4 mg PO DAILY@1730 [facility] Medical Necessity - Tobacco Use Smoking Status: Never smoker Assessment/Plan All Active Problems (Last Reviewed 02/23/20 @ 07:[address] Julio César Armijo MD) Appendicitis (Acute) MEGAN (acute kidney injury) (Acute) Garcia's palsy (Resolved) Acute renal failure kidney disease stage III She has known history of CKD stage III with baseline creatinine around 1.4-1.6. Now has acute renal failure. Initial CT abdomen did not show any hydronephrosis Urine analysis shows protein which is baseline she did have a CT abdomen with contrast on the . Most likely has contrast nephropathy Blood pressure is ok remains oliguric. still NPO. possible ileus. start fluids today Proteinuria. Has about 1.3 g of protein at baseline. Usually on losartan, hold for now History of fluid retention. As per our office records, she is on Lasix and Aldactone. Currently hold all the diuretics since she is not eating much. wood Askew .
--- NOTE | 2019-11-25 14:27 | CPS ---
started by nursing
--- NOTE | 2019-11-25 15:58 | PN_ITS ---
Patient Problems: Active and Suspected Problems (Last Reviewed 11/23/19 @ 07:[address] Julio César Armijo MD) Appendicitis (Acute) MEGAN (acute kidney injury) (Acute) Reason for Visit: Status post appendectomy. UTI and acute kidney injury and CKD, JUAN. Vitals/I&O's: Vital Signs Temp Pulse Resp BP Pulse Ox 98.2 F 70 22 H 144/79 H 94 11/25/19 09:30 11/25/19 13:45 11/25/19 13:45 11/25/19 09:30 11/25/19 09:30 Oxygen Flow Rate (L/min) 5 Oxygen Delivery Method Nasal Cannula Weight: 216 lb 7.903 oz Body Mass Index (BMI) 37.9 Finger Stick Blood Glucose 124 Intake and Output for Last 24 Hours 11/23/19 11/24/19 11/25/19 23:59 23:59 23:59 Intake Total 3426.75 / 3426.75 1910.50 / 1910.50 1238.75 / 1238.75 Output Total 0 / 0 1705 / 1705 240 / 240 Balance 3426.75 / 3426.75 205.50 / 205.50 998.75 / 998.75 General: Alert, Oriented x3, Cooperative HEENT: Atraumatic, PERRLA, EOMI, Normocephalic Neck: Supple, No JVD, Negative Carotid Bruits Lungs: Clear to auscultation, No rhonchi, No wheeze, No rales, Diminished Cardiovascular: Regular rate, Regular Rhythm, Normal S1, Normal S2, No murmurs Abdomen: Bowel Sounds Present, Soft, Non Tender, Non-Distended Extremities: No edema, Capillary Refill Less than 3 Seconds Skin: No rashes, No breakdown Musculoskeletal: No Tenderness to Palpation of Joints or Extremities, Arthritic Changes Neurological: Cranial nerves II-XII grossly intact, Deep Tendon Reflexes 2+/4 and Symmetrical, Neuro grossly intact Psych/Mental Status: Normal Affect, Appropriate Microbiology Past 72 Hours 11/23/19 13:16 Incision/Surgical Site Gram Stain - Final 11/23/19 13:16 Incision/Surgical Site Wound Culture - Final Escherichia coli Laboratory Results 11/24/19 18:27: POC Glucose 168 H 11/24/19 23:29: POC Glucose 165 H 11/25/19 05:12: PT 18.5 H, INR 1.6 11/25/19 05:12: WBC 14.1 H, RBC 3.15 L, Hgb 9.2 L, Hct 29.0 L, MCV 92.1, MCH 29.2, MCHC 31.7 L, RDW Std Deviation 48.1 H, RDW Coeff of Ashley 14.4, Plt Count 170, MPV 11.4, Immature Gran % (Auto) 0.500, Neut % (Auto) 78.1 H, Lymph % (Auto) 9.5 L, [place] % (Auto) 10.1 H, Eos % (Auto) 1.6, Baso % (Auto) 0.2, Absolute Neuts (auto) 11.0 H, Absolute Lymphs (auto) 1.34, Nucleated RBC % 0 11/25/19 05:12: Sodium 131 L, Potassium 4.6, Chloride 102, Carbon Dioxide 21.0, Anion Gap 8, BUN 49 H, Creatinine 3.55 H, Estim Creat Clear Calc 10.00, Est GFR (MDRD) Af Amer 16 L, Est GFR (MDRD) Non-Af 13 L, BUN/Creatinine Ratio 13.8, Glucose 126 H, Calcium 7.6 L 11/25/19 05:38: POC Glucose 139 H 11/25/19 11:34: POC Glucose 136 H Current Medications Acetaminophen (Tylenol) 650 mg PO Q6H PRN PRN PRN Reason: Pain Score 1-10/10 Albuterol Sulfate (Ventolin Aerosols) 2.5 mg INHALATION Q2H PRN PRN PRN Reason: WHEEZING Last Admin: 11/24/19 23:43 Dose: 2.5 mg Documented by: Albuterol/Ipratropium (Duoneb) 3 ml INHALATION Q4HWA.RT [facility] Last Admin: 11/25/19 14:07 Dose: 3 ml Documented by: Amlodipine Besylate (Norvasc) 10 mg PO DAILY [facility] Last Admin: 11/25/19 09:31 Dose: 10 mg Documented by: Dextrose (D50w Syringe) 0 gm IV X1 PRN; Protocol PRN Reason: Hypoglycemia Flecainide Acetate (Tambocor) 100 mg PO BID [facility] Last Admin: 11/25/19 09:31 Dose: 100 mg Documented by: Glucagon () 1 mg IM .X1 PRN PRN Reason: Hypoglycemia Hydralazine HCl (Apresoline Iv) 5 mg IV Q6H PRN PRN PRN Reason: SBP > 160 Sodium Chloride () 250 mls @ 15 mls/hr IV .[id number] PRN PRN Reason: Saline Flush Last Infusion: 11/25/19 14:20 Dose: 15 mls/hr Documented by: Piperacillin Sod/Tazobactam (Sod 3.375 gm/ Sodium Chloride) 50 mls @ 12.5 mls/hr IV Q12 [facility] Last Infusion: 11/25/19 14:20 Dose: Infused Documented by: Sodium Chloride () 1,000 mls @ 50 mls/hr IV .Q20H [facility] Stop: 11/27/19 00:34 Last Infusion: 11/25/19 15:00 Dose: 50 mls/hr Documented by: Pantoprazole Sodium 40 mg/ (Sodium Chloride) 110 mls @ 330 mls/hr IV Q24 [facility] Insulin Human Lispro (Humalog Kwikpen (Bkc)) 0 unit SC Q6 [facility]; Protocol Last Admin: 11/25/19 12:10 Dose: Not Given Documented by: Levothyroxine Sodium (Synthroid) 175 mcg PO DAILY@0600 [facility] Last Admin: 11/25/19 05:39 Dose: 175 mcg Documented by: Metoprolol Succinate (Toprol Xl (Beta Trang)) 37.5 mg PO DAILY [facility] Last Admin: 11/25/19 09:31 Dose: 37.5 mg Documented by: Morphine Sulfate () 2 mg IV Q3H PRN PRN PRN Reason: Pain Score 6-10/10 Last Admin: 11/23/19 08:59 Dose: 2 mg Documented by: Ondansetron HCl (Zofran) 4 mg IV Q8H PRN PRN PRN Reason: NAUSEA/VOMITING Oxycodone HCl (Oxyir) 5 - 10 mg PO Q4H PRN PRN PRN Reason: Pain Score 6-10/10 Last Admin: 11/23/19 20:58 Dose: 10 mg Documented by: Pravastatin Sodium (Pravachol) 40 mg PO QHS [facility] Last Admin: 11/24/19 22:23 Dose: 40 mg Documented by: Sodium Chloride () 10 - 40 ml IV UD PRN PRN Reason: SALINE FLUSH Last Admin: 11/25/19 10:16 Dose: 10 ml Documented by: Tamsulosin HCl (Flomax) 0.4 mg PO DAILY@1730 [facility] Vital Signs/Narrative: Vital Signs Pulse Resp 11/25/19 13:45 70 22 H Medical Necessity - Tobacco Use Smoking Status: Never smoker Assessment/Plan All Active Problems (Last Reviewed 11/23/19 @ 07:[address] Julio César Armijo MD) Appendicitis (Acute) MEGAN (acute kidney injury) (Acute) Garcia's palsy (Resolved) The patient is a 79 year old F with a significant for paroxysmal A. fib; permanent pacemaker; sick sinus syndrome who presents emergency department with excruciating right lower quadrant pain and abdomen and pelvis CT showing acute appendicitis. 1. Acute perforated appendicitis: Had laparoscopic appendectomy on 11/23/2019. On zosyn. Patient is afebrile but has high white count. 11/26: Leukocytosis improving. H&H is stable. 2. Recent bronchitis - continue aerosols, mucinex, incentive spirometer 3. Acute on CKD stage IV with urine retention most probably JUAN/postoperative urine retention. Resident Programs Assistant is been consulted. Will start Morales catheter for drainage. Patient creatinine jumped up from 1.69-2.52 most probably Intra-Op urine retention. 11/25: Patient had Morales catheter yesterday. Creatinine went up from 2.5-3.5. Seen by anesthesiology fellow. Most probably JUAN. On IV fluid normal saline 200 mils per hour. Titrate the flow of normal saline as per hydration status and fluid overload. IV contrast was given on 11/23 therefore more than 48 hours. E. coli UTI: On IV Zosyn. It is also for perforated appendicitis. 4. pAfib - Flecainide, metoprolol. Rate stable. Hold Coumadin. 11/25: Resume Coumadin 5. Dmt2 - SSI, on Lantus. On clear liquids 6. Hx SSS - has pacemaker 7. hypothyroid - synthroid 8. Hx Gout - allopurinol 9. [place] palsy - not on steroids. 10. HTN - elevated. home meds + prn hydralazine. DVT ppx: SCDs Total time of the visit including total time spent in counseling or coordination of care, (more than 50% of the total time, spent in obtaining medical information from nurses and other ancillary care providers), , review of labs and imaging is 30 minutes Microbiology Past 72 Hours 11/23/19 13:16 Incision/Surgical Site Gram Stain - Final 11/23/19 13:16 Incision/Surgical Site Wound Culture - Final Escherichia coli Laboratory Results 11/24/19 18:27: POC Glucose 168 H 11/24/19 23:29: POC Glucose 165 H 11/25/19 05:12: PT 18.5 H, INR 1.6 11/25/19 05:12: WBC 14.1 H, RBC 3.15 L, Hgb 9.2 L, Hct 29.0 L, MCV 92.1, MCH 29.2, MCHC 31.7 L, RDW Std Deviation 48.1 H, RDW Coeff of Ashley 14.4, Plt Count 170, MPV 11.4, Immature Gran % (Auto) 0.500, Neut % (Auto) 78.1 H, Lymph % (Auto) 9.5 L, [place] % (Auto) 10.1 H, Eos % (Auto) 1.6, Baso % (Auto) 0.2, Absolute Neuts (auto) 11.0 H, Absolute Lymphs (auto) 1.34, Nucleated RBC % 0 11/25/19 05:12: Sodium 131 L, Potassium 4.6, Chloride 102, Carbon Dioxide 21.0, Anion Gap 8, BUN 49 H, Creatinine 3.55 H, Estim Creat Clear Calc 10.00, Est GFR (MDRD) Af Amer 16 L, Est GFR (MDRD) Non-Af 13 L, BUN/Creatinine Ratio 13.8, Glucose 126 H, Calcium 7.6 L 11/25/19 05:38: POC Glucose 139 H 11/25/19 11:34: POC Glucose 136 H Active Medications Acetaminophen (Tylenol) 650 mg PO Q6H PRN PRN PRN Reason: Pain Score 1-10/10 Albuterol Sulfate (Ventolin Aerosols) 2.5 mg INHALATION Q2H PRN PRN PRN Reason: WHEEZING Last Admin: 11/24/19 23:43 Dose: 2.5 mg Documented by: Albuterol/Ipratropium (Duoneb) 3 ml INHALATION Q4HWA.RT [facility] Last Admin: 11/25/19 14:07 Dose: 3 ml Documented by: Amlodipine Besylate (Norvasc) 10 mg PO DAILY [facility] Last Admin: 11/25/19 09:31 Dose: 10 mg Documented by: Dextrose (D50w Syringe) 0 gm IV X1 PRN; Protocol PRN Reason: Hypoglycemia Flecainide Acetate (Tambocor) 100 mg PO BID [facility] Last Admin: 11/25/19 09:31 Dose: 100 mg Documented by: Glucagon () 1 mg IM .X1 PRN PRN Reason: Hypoglycemia Hydralazine HCl (Apresoline Iv) 5 mg IV Q6H PRN PRN PRN Reason: SBP > 160 Sodium Chloride () 250 mls @ 15 mls/hr IV .[id number] PRN PRN Reason: Saline Flush Last Infusion: 11/25/19 14:20 Dose: 15 mls/hr Documented by: Piperacillin Sod/Tazobactam (Sod 3.375 gm/ Sodium Chloride) 50 mls @ 12.5 mls/hr IV Q12 [facility] Last Infusion: 11/25/19 14:20 Dose: Infused Documented by: Sodium Chloride () 1,000 mls @ 50 mls/hr IV .Q20H [facility] Stop: 11/27/19 00:34 Last Infusion: 11/25/19 15:00 Dose: 50 mls/hr Documented by: Pantoprazole Sodium 40 mg/ (Sodium Chloride) 110 mls @ 330 mls/hr IV Q24 [facility] Insulin Human Lispro (Humalog Kwikpen (Bkc)) 0 unit SC Q6 [facility]; Protocol Last Admin: 11/25/19 12:10 Dose: Not Given Documented by: Levothyroxine Sodium (Synthroid) 175 mcg PO DAILY@0600 [facility] Last Admin: 11/25/19 05:39 Dose: 175 mcg Documented by: Metoprolol Succinate (Toprol Xl (Beta Trang)) 37.5 mg PO DAILY [facility] Last Admin: 11/25/19 09:31 Dose: 37.5 mg Documented by: Morphine Sulfate () 2 mg IV Q3H PRN PRN PRN Reason: Pain Score 6-10/10 Last Admin: 11/23/19 08:59 Dose: 2 mg Documented by: Ondansetron HCl (Zofran) 4 mg IV Q8H PRN PRN PRN Reason: NAUSEA/VOMITING Oxycodone HCl (Oxyir) 5 - 10 mg PO Q4H PRN PRN PRN Reason: Pain Score 6-1010 Last Admin: 11/23/19 20:58 Dose: 10 mg Documented by: Pravastatin Sodium (Pravachol) 40 mg PO QHS [facility] Last Admin: 11/24/19 22:23 Dose: 40 mg Documented by: Sodium Chloride () 10 - 40 ml IV UD PRN PRN Reason: SALINE FLUSH Last Admin: 11/25/19 10:16 Dose: 10 ml Documented by: Tamsulosin HCl (Flomax) 0.4 mg PO DAILY@1730 [facility] Code Visit Inpatient E&M: 11494 Subs Hosp L3
[2019-11-25] MEDS: Tamsulosin HCl 0.4 MG Capsule PO (18:25)
[2019-11-25] MEDS: Insulin Lispro 100 UNIT/ML INSULN.PEN SC (18:26)
[2019-11-25 18:46] LABS: Bedside Glucose 156 mg/dL (70-110)
[2019-11-25] MEDS: Bisacodyl 10 MG Suppository RECTAL (22:11)
[2019-11-25] MEDS: Pravastatin 40 MG Tablet PO (22:11)
[2019-11-26] VITALS (9 sets, daily range): BP systolic 126–154; BP diastolic 41–109; PULSE 60–90; RESP 17–20; TEMP 36.7–37; O2SAT 92–96
[2019-11-26 00:11] LABS: Bedside Glucose 116 mg/dL (70-110)
--- NOTE | 2019-11-26 01:13 | NURSING ---
Pt de-stated to 80%, O2 still in place in room. Pt awaken and took deep breaths and returned to 94%
[2019-11-26] MEDS: 0.9% Normal Saline 1,000 ML 50 ML IV (02:00)
[2019-11-26 05:52] LABS: International Normalized Ratio 1.7; Prothrombin Time (Protime)PT. 19.4 SECONDS (11.7-14.9)
[2019-11-26] MEDS: Levothyroxine 175 MCG Tablet PO (06:29)
[2019-11-26 06:35] LABS: Bedside Glucose 119 mg/dL (70-110)
[2019-11-26] MEDS: Ipratropium/Albuterol Sulfate 3 ML AMPUL.NEB INHALATION ×3 (07:17→14:31)
--- NOTE | 2019-11-26 08:01 | RAD_ITS ---
EXAM DESCRIPTION: PORTABLE AP CHEST CLINICAL HISTORY: 79 years Female, sob, pulmonary edema sob, pulmonary edema COMPARISON: Previous chest obtained on 02/09/2019 FINDINGS: A left cardiac pacemaker is noted in place. The rest of the thorax is intact. The heart and mediastinum appear to be within normal limits. The lungs show small area of subsegmental atelectasis in the lateral left lung base which previously was not seen. A small focal pneumonic infiltrate in this location can''t be excluded. RAD/Chest 1 View IMPRESSION: Left cardiac pacemaker is noted in place. Subsegmental atelectasis is also seen in the left lung base and a small left lung base pneumonic infiltrate cannot be excluded. Electronically Signed: Royce Martinez, at 11:14 EST Tel , Service support ,
--- NOTE | 2019-11-26 08:06 | PCM.PN.HOSP ---
Patient Problems: Active and Suspected Problems (Last Reviewed 11/23/19 @ 07:[address] Julio César Armijo MD) Appendicitis (Acute) MEGAN (acute kidney injury) (Acute) Reason for Visit: Perforated appendix. Acute kidney injury. Abdominal pain distention. Ileus. Vitals/I&O's: Vital Signs Temp Pulse Resp BP Pulse Ox 98.1 F 60 18 126/41 H 94 11/26/19 02:50 11/26/19 02:50 11/26/19 02:50 11/26/19 02:50 11/26/19 02:50 Oxygen Flow Rate (L/min) 5 Oxygen Delivery Method Nasal Cannula Weight: 223 lb 15.834 oz Body Mass Index (BMI) 37.9 Finger Stick Blood Glucose 124 Intake and Output for Last 24 Hours 11/24/19 11/25/19 11/26/19 23:59 23:59 23:59 Intake Total 1910.50 / 1910.50 1488.92 / 1688.92 843.83 / 843.83 Output Total 1705 / 1705 360 / 485 250 / 250 Balance 205.50 / 205.50 1128.92 / 1203.92 593.83 / 593.83 General: Alert, Oriented x3, Cooperative HEENT: Atraumatic, PERRLA, EOMI, Normocephalic Oral: Moist Mucosa, No Gingival or Mucosal Lesions/ Ulcerations Neck: Supple, No JVD, Negative Carotid Bruits Lungs: Diminished, Rales - Bilateral coarse crepitations present, Rhonchi, Short of Breath Cardiovascular: Regular rate, Regular Rhythm, Normal S1, Normal S2, No murmurs Abdomen: Bowel Sounds Present, Soft, Non Tender, Hypoactive Bowel Sounds, Distended - Abdomen mildly distended Extremities: No edema, Capillary Refill Less than 3 Seconds Skin: No rashes, No breakdown Musculoskeletal: No Tenderness to Palpation of Joints or Extremities, Arthritic Changes Neurological: Cranial nerves II-XII grossly intact, Deep Tendon Reflexes 2+/4 and Symmetrical, Neuro grossly intact Psych/Mental Status: Normal Affect, Appropriate Microbiology Past 72 Hours 11/23/19 13:16 Incision/Surgical Site Gram Stain - Final 11/23/19 13:16 Incision/Surgical Site Wound Culture - Final Escherichia coli Laboratory Results 11/25/19 11:34: POC Glucose 136 H 11/25/19 18:25: POC Glucose 156 H 11/26/19 00:02: POC Glucose 116 H 11/26/19 05:20: PT 19.4 H, INR 1.7 11/26/19 06:26: POC Glucose 119 H Current Medications Acetaminophen (Tylenol) 650 mg PO Q6H PRN PRN PRN Reason: Pain Score 1-10/10 Albuterol Sulfate (Ventolin Aerosols) 2.5 mg INHALATION Q2H PRN PRN PRN Reason: WHEEZING Last Admin: 11/24/19 23:43 Dose: 2.5 mg Documented by: Albuterol/Ipratropium (Duoneb) 3 ml INHALATION Q4HWA.RT [facility] Last Admin: 11/26/19 07:17 Dose: 3 ml Documented by: Allopurinol (Zyloprim) 300 mg PO DAILY@0800 [facility] Amlodipine Besylate (Norvasc) 10 mg PO DAILY [facility] Last Admin: 11/25/19 09:31 Dose: 10 mg Documented by: Dextrose (D50w Syringe) 0 gm IV X1 PRN; Protocol PRN Reason: Hypoglycemia Flecainide Acetate (Tambocor) 100 mg PO BID [facility] Last Admin: 11/25/19 22:11 Dose: 100 mg Documented by: Glucagon () 1 mg IM .X1 PRN PRN Reason: Hypoglycemia Hydralazine HCl (Apresoline Iv) 5 mg IV Q6H PRN PRN PRN Reason: SBP > 160 Sodium Chloride () 250 mls @ 15 mls/hr IV .[id number] PRN PRN Reason: Saline Flush Last Infusion: 11/26/19 04:13 Dose: 0 mls/hr Documented by: Piperacillin Sod/Tazobactam (Sod 3.375 gm/ Sodium Chloride) 50 mls @ 12.5 mls/hr IV Q12 [facility] Last Infusion: 11/26/19 03:56 Dose: Infused Documented by: Pantoprazole Sodium 40 mg/ (Sodium Chloride) 110 mls @ 330 mls/hr IV Q24 [facility] Last Infusion: 11/25/19 16:32 Dose: Infused Documented by: Insulin Human Lispro (Humalog Kwikpen (Bkc)) 0 unit SC Q6 [facility]; Protocol Last Admin: 11/26/19 06:28 Dose: Not Given Documented by: Levothyroxine Sodium (Synthroid) 175 mcg PO DAILY@0600 [facility] Last Admin: 11/26/19 06:29 Dose: 175 mcg Documented by: Metoprolol Succinate (Toprol Xl (Beta Trang)) 25 mg PO DAILY [facility] Morphine Sulfate () 2 mg IV Q3H PRN PRN PRN Reason: Pain Score 6-10/10 Last Admin: 11/23/19 08:59 Dose: 2 mg Documented by: Ondansetron HCl (Zofran) 4 mg IV Q8H PRN PRN PRN Reason: NAUSEA/VOMITING Oxycodone HCl (Oxyir) 5 - 10 mg PO Q4H PRN PRN PRN Reason: Pain Score 6-10/10 Last Admin: 11/23/19 20:58 Dose: 10 mg Documented by: Pravastatin Sodium (Pravachol) 40 mg PO QHS [facility] Last Admin: 11/25/19 22:11 Dose: 40 mg Documented by: Sodium Chloride () 10 - 40 ml IV UD PRN PRN Reason: SALINE FLUSH Last Admin: 11/25/19 22:14 Dose: 10 ml Documented by: Tamsulosin HCl (Flomax) 0.4 mg PO DAILY@1730 [facility] Last Admin: 11/25/19 18:25 Dose: 0.4 mg Documented by: Warfarin Sodium (Coumadin (Pbkc)) 6 mg PO MoTuWeThFrSa@1700 [facility] Last Admin: 11/25/19 18:25 Dose: 6 mg Documented by: Warfarin Sodium (Coumadin (Pbkc)) 4 mg PO [place]@1700 [facility] Medical Necessity - Tobacco Use Smoking Status: Never smoker Assessment/Plan All Active Problems (Last Reviewed 11/23/19 @ 07:[address] Julio César Armijo MD) Appendicitis (Acute) MEGAN (acute kidney injury) (Acute) Garcia's palsy (Resolved) The patient is a 79 year old F with a significant for paroxysmal A. fib; permanent pacemaker; sick sinus syndrome who presents emergency department with excruciating right lower quadrant pain and abdomen and pelvis CT showing acute appendicitis. 1. Acute perforated appendicitis: Had laparoscopic appendectomy on 11/23/2019. On zosyn. Patient is afebrile but has high white count. 11/26: Leukocytosis improving. H&H is stable. KUB shows adynamic ileus. Patient remains n.p.o. Has not passed flatus. Discussed with surgeon. 2. Acute respiratory distress/insufficiency with hypoxia: 11/26: Crepitations present on lung exam. Lasix 40 mg IV ordered. IV fluid discontinued. Chest x-ray with BNP ordered. Flonase ordered. Patient is on bronchodilator. Continue incentive spirometry and pep 3. 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 Overall is suggestive of right ventricular failure, moderate pulmonary hypertension and HFpEF Echo in October 2018. Interpretation Summary Mild concentric left ventricular hypertrophy. The estimated ejection fraction is 75 %. Mildly dilated right ventricle. The left atrium is moderately enlarged. Mild-Moderate (1-2+) posteriorly directed mitral valve insufficiency. Mild (1+) tricuspid valve insufficiency. Right ventricular systolic pressure estimated to be 51 mmHg. Moderate pulmonary hypertension. Compared to echo report dated 03/10/2013, LV function has remained the same, but RVSP has now increased from 30 to 51 mm Hg. Pt now appears to be in atrial fibrillation. 11/26: Chest x-ray ordered. Chest x-ray is independently reviewed and shows a left CP angle obliteration possible subsegmental atelectasis or small pneumonic infiltrate. already on IV Zosyn. Urinary antigens ordered. Patient does not sputum. ID is consulted. 3. Acute on CKD stage IV with urine retention most probably JUAN/postoperative urine retention. Linux System Administrator is been consulted. Will start Morales catheter for drainage. Patient creatinine jumped up from 1.69-2.52 most probably Intra-Op urine retention. 11/25: Patient had Morales catheter yesterday. Creatinine went up from 2.5-3.5. Seen by nitrocellulose maker. Most probably JUAN. On IV fluid normal saline 200 mils per hour. Titrate the flow of normal saline as per hydration status and fluid overload. IV contrast was given on 11/23 therefore more than 48 hours. 11/26: BUN/creatinine getting worse 55/4.29, estimated creatinine clearance less than 10 mL/min. Discussed with nitrocellulose maker. Monitor BUN/creatinine may require temporary dialysis. E. coli UTI: On IV Zosyn. It is also for perforated appendicitis. 4. pAfib - Flecainide, metoprolol. Rate stable. Hold Coumadin. 11/25: Resume Coumadin 11/26 INR 1.7. 5. Dmt2 - SSI, on Lantus. On clear liquids 6. Hx SSS - has pacemaker 7. hypothyroid - synthroid 8. Hx Gout - allopurinol 9. [place] palsy - not on steroids. 10. HTN - elevated. home meds + prn hydralazine. DVT ppx: SCDs Total time of the visit including total time spent in counseling or coordination of care, (more than 50% of the total time, spent in obtaining medical information from nurses and other ancillary care providers), , review of labs and imaging is 30 minutes Microbiology Past 72 Hours 11/23/19 13:16 Incision/Surgical Site Gram Stain - Final 11/23/19 13:16 Incision/Surgical Site Wound Culture - Final Escherichia coli 11/23/19 13:16 Incision/Surgical Site Anaerobic Culture - Preliminary Checking for anaerobes, further studies to follow. Laboratory Results 11/25/19 18:25: POC Glucose 156 H 11/26/19 00:02: POC Glucose 116 H 11/26/19 05:20: PT 19.4 H, INR 1.7 11/26/19 05:20: WBC 11.4 H, RBC 3.04 L, Hgb 9.0 L, Hct 28.3 L, MCV 93.1, MCH 29.6, MCHC 31.8 L, RDW Std Deviation 47.8 H, RDW Coeff of Ashley 14.2, Plt Count 197, MPV 11.6, Immature Gran % (Auto) 0.400, Neut % (Auto) 75.4 H, Lymph % (Auto) 9.8 L, [place] % (Auto) 10.9 H, Eos % (Auto) 3.2, Baso % (Auto) 0.3, Absolute Neuts (auto) 8.6 H, Absolute Lymphs (auto) 1.12, Nucleated RBC % 0 11/26/19 05:20: Sodium 132 L, Potassium 4.8, Chloride 103, Carbon Dioxide 18.0 L, Anion Gap 11, BUN 55 H, Creatinine 4.29 H, Estim Creat Clear Calc 8.27, Est GFR (MDRD) Af Amer 13 L, Est GFR (MDRD) Non-Af 11 L, BUN/Creatinine Ratio 12.8, Glucose 109 H, Calcium 7.6 L, Magnesium 2.1 11/26/19 05:40: B-Natriuretic Peptide 611.6 H 11/26/19 06:26: POC Glucose 119 H 11/26/19 12:03: POC Glucose 174 H 11/26/19 13:35: APTT 42.8 H Code Visit Inpatient E&M: 49802 Subs Hosp L3
--- NOTE | 2019-11-26 08:09 | RAD_ITS ---
STUDY: X-RAY - ABDOMEN/PELVIS REASON FOR EXAM: Female, 79 years old. ileus, abd pain TECHNIQUE: KUB COMPARISON: Previous abdomen obtained on 11/24/2019 FINDINGS: There is mild gaseous distention noted of the stomach and loops of large and small intestine consistent with a mild adynamic ileus. There is no evidence of free intraperitoneal air or abdominal mass. No pathologic calcifications are seen. RAD/Abdomen Single View (Portable) IMPRESSION: Mild adynamic ileus.. Electronically Signed: Royce Martinez, at 14:07 EST Tel , Service support ,
[2019-11-26 08:15] LABS: Absolute Lymphocyte Count 1.12 X10^3/uL (0.83-4.51); Absolute Neutrophil Count 8.6 X10^3/uL (2.0-7.7); Basophil# 0.03 X10^3/uL; Basophil% 0.3 % (0-1); Eosinophil# 0.37 X10^3/uL; Eosinophils% 3.2 % (0-5); Hematocrit 28.3 % (37-47); Lymphocyte # 1.12 X10^3/ul (4.0); Lymphocyte % 9.8 % (19-41); Mean Corp Hgb Conc 31.8 g/dL (32-36); Mean Corpuscular Hgb 29.6 pg (27.0-32.0); Mean Corpuscular Volume 93.1 fL (81-99); Mean Platelet Vol. 11.6 fl (6.2-12.0); Monocyte# 1.25 X10^3/uL; Monocyte% 10.9 % (0-10); NRBC Flagged by Analyzer 0 % (0-5); Neutrophil # 8.61 X10^3/uL (2.7-7.7); Neutrophil % 75.4 % (47-70); Platelet Count 197 K/mm3 (150-450); RBC Distribution Width CV 14.2 % (11.6-14.6); RBC Distribution Width SD 47.8 fl (35.1-43.9); Red Blood Count 3.04 M/mm3 (4.2-5.4); White Blood Count 11.4 K/mm3 (4.4-11.0)
[2019-11-26 08:30] LABS: Anion Gap 11 (5-15); BUN 55 mg/dL (7-18); BUN/Creat Ratio 12.8 RATIO (10-20); Calcium,Total 7.6 mg/dL (8.5-10.1); Chloride 103 mmol/L (98-107); Creatinine, Serum 4.29 mg/dL (0.55-1.02); EST Glomerular Filtration Rate 11 mL/min (>60); Est Glom Filt Rate - Afr Amer 13 mL/min (>60); Estimated Creatinine Clearance 8.27 ml/min; Glucose 109 mg/dL (74-106); Magnesium 2.1 mg/dL (1.6-2.6); Potassium 4.8 mmol/L (3.5-5.1); Sodium Level 132 mmol/L (136-145)
[2019-11-26] MEDS: Furosemide 40 MG/4 ML Vial IV (09:16)
[2019-11-26] MEDS: Metoprolol(XL)Succ 25 MG Tablet PO (09:17)
[2019-11-26] MEDS: amLODIPine 10 MG Tablet PO (09:17)
[2019-11-26] MEDS: Allopurinol 300 MG Tablet PO (09:17)
[2019-11-26] MEDS: Flecainide 100 MG Tablet PO ×2 (09:18→22:52)
[2019-11-26] MEDS: 0.9% Saline Lock 10 ML Syringe IV ×4 (09:20→17:53)
[2019-11-26] MEDS: Fluticasone 0.05% 1 SPRAY NASAL.SRY NASAL ×2 (09:24→22:55)
[2019-11-26 10:02] LABS: BNP,B-Type NATRIURETIC PEPTIDE 611.6 pg/mL (0-100)
--- NOTE | 2019-11-26 10:29 | PCM.PN.SRG ---
Patient Problems: Active and Suspected Problems (Last Reviewed 11/23/19 @ 07:[address] Julio César Armijo MD) Appendicitis (Acute) MEGAN (acute kidney injury) (Acute) Subjective: pt still denies flatus, has occ N, IVF were decreased yesterday due to lung crackles - Physical Exam Vitals/I&O's: Vital Signs Temp Pulse Resp BP Pulse Ox 98.2 F 79 18 141/45 H 96 11/26/19 08:34 11/26/19 09:17 11/26/19 08:34 11/26/19 08:34 11/26/19 08:34 Oxygen Flow Rate (L/min) 5 Oxygen Delivery Method Nasal Cannula Weight: 223 lb 15.834 oz Body Mass Index (BMI) 37.9 Finger Stick Blood Glucose 124 Intake and Output for Last 24 Hours 11/24/19 11/25/19 11/26/19 23:59 23:59 23:59 Intake Total 1910.50 / 1910.50 1488.92 / 1688.92 953.83 / 953.83 Output Total 1705 / 1705 360 / 485 250 / 250 Balance 205.50 / 205.50 1128.92 / 1203.92 703.83 / 703.83 General: Alert, Oriented x3, Cooperative, No apparent distress Abdomen: Soft, Distended - mild, Tender - mild, no PS Microbiology Past 72 Hours 11/23/19 13:16 Incision/Surgical Site Gram Stain - Final 11/23/19 13:16 Incision/Surgical Site Wound Culture - Final Escherichia coli Laboratory Results 11/25/19 11:34: POC Glucose 136 H 11/25/19 18:25: POC Glucose 156 H 11/26/19 00:02: POC Glucose 116 H 11/26/19 05:20: PT 19.4 H, INR 1.7 11/26/19 05:20: WBC 11.4 H, RBC 3.04 L, Hgb 9.0 L, Hct 28.3 L, MCV 93.1, MCH 29.6, MCHC 31.8 L, RDW Std Deviation 47.8 H, RDW Coeff of Ashley 14.2, Plt Count 197, MPV 11.6, Immature Gran % (Auto) 0.400, Neut % (Auto) 75.4 H, Lymph % (Auto) 9.8 L, [place] % (Auto) 10.9 H, Eos % (Auto) 3.2, Baso % (Auto) 0.3, Absolute Neuts (auto) 8.6 H, Absolute Lymphs (auto) 1.12, Nucleated RBC % 0 11/26/19 05:20: Sodium 132 L, Potassium 4.8, Chloride 103, Carbon Dioxide 18.0 L, Anion Gap 11, BUN 55 H, Creatinine 4.29 H, Estim Creat Clear Calc 8.27, Est GFR (MDRD) Af Amer 13 L, Est GFR (MDRD) Non-Af 11 L, BUN/Creatinine Ratio 12.8, Glucose 109 H, Calcium 7.6 L, Magnesium 2.1 11/26/19 05:40: B-Natriuretic Peptide 611.6 H 11/26/19 06:26: POC Glucose 119 H Current Medications Acetaminophen (Tylenol) 650 mg PO Q6H PRN PRN PRN Reason: Pain Score 1-10/10 Albuterol Sulfate (Ventolin Aerosols) 2.5 mg INHALATION Q2H PRN PRN PRN Reason: WHEEZING Last Admin: 11/24/19 23:43 Dose: 2.5 mg Documented by: Albuterol/Ipratropium (Duoneb) 3 ml INHALATION Q4HWA.RT [facility] Last Admin: 11/26/19 10:19 Dose: 3 ml Documented by: Allopurinol (Zyloprim) 300 mg PO DAILY@0800 [facility] Last Admin: 11/26/19 09:17 Dose: 300 mg Documented by: Amlodipine Besylate (Norvasc) 10 mg PO DAILY [facility] Last Admin: 11/26/19 09:17 Dose: 10 mg Documented by: Dextrose (D50w Syringe) 0 gm IV X1 PRN; Protocol PRN Reason: Hypoglycemia Flecainide Acetate (Tambocor) 100 mg PO BID [facility] Last Admin: 11/26/19 09:18 Dose: 100 mg Documented by: Fluticasone Propionate (Flonase Nasal [place]) 1 spray NASAL BID [facility] Last Admin: 11/26/19 09:24 Dose: 1 spray Documented by: Glucagon () 1 mg IM .X1 PRN PRN Reason: Hypoglycemia Hydralazine HCl (Apresoline Iv) 5 mg IV Q6H PRN PRN PRN Reason: SBP > 160 Sodium Chloride () 250 mls @ 15 mls/hr IV .[id number] PRN PRN Reason: Saline Flush Last Infusion: 11/26/19 04:13 Dose: 0 mls/hr Documented by: Piperacillin Sod/Tazobactam (Sod 3.375 gm/ Sodium Chloride) 50 mls @ 12.5 mls/hr IV Q12 [facility] Last Admin: 11/26/19 09:59 Dose: 12.5 mls/hr Documented by: Pantoprazole Sodium 40 mg/ (Sodium Chloride) 110 mls @ 330 mls/hr IV Q24 [facility] Last Infusion: 11/26/19 09:46 Dose: Infused Documented by: Insulin Human Lispro (Humalog Kwikpen (Bkc)) 0 unit SC Q6 [facility]; Protocol Last Admin: 11/26/19 06:28 Dose: Not Given Documented by: Levothyroxine Sodium (Synthroid) 175 mcg PO DAILY@0600 [facility] Last Admin: 11/26/19 06:29 Dose: 175 mcg Documented by: Metoprolol Succinate (Toprol Xl (Beta Trang)) 25 mg PO DAILY [facility] Last Admin: 11/26/19 09:17 Dose: 25 mg Documented by: Morphine Sulfate () 2 mg IV Q3H PRN PRN PRN Reason: Pain Score 6-10/10 Last Admin: 11/23/19 08:59 Dose: 2 mg Documented by: Ondansetron HCl (Zofran) 4 mg IV Q8H PRN PRN PRN Reason: NAUSEA/VOMITING Oxycodone HCl (Oxyir) 5 - 10 mg PO Q4H PRN PRN PRN Reason: Pain Score 6-10/10 Last Admin: 11/23/19 20:58 Dose: 10 mg Documented by: Pravastatin Sodium (Pravachol) 40 mg PO QHS [facility] Last Admin: 11/25/19 22:11 Dose: 40 mg Documented by: Sodium Chloride () 10 - 40 ml IV UD PRN PRN Reason: SALINE FLUSH Last Admin: 11/26/19 09:20 Dose: 10 ml Documented by: Sodium Chloride ([place] Nasal [place]) 2 spray NASAL TID PRN PRN PRN Reason: NASAL DRYNESS Tamsulosin HCl (Flomax) 0.4 mg PO DAILY@1730 [facility] Last Admin: 02/25/20 18:25 Dose: 0.4 mg Documented by: Warfarin Sodium (Coumadin (Pbkc)) 6 mg PO MoTuWeThFrSa@1700 [facility] Last Admin: 11/25/19 18:25 Dose: 6 mg Documented by: Warfarin Sodium (Coumadin (Pbkc)) 4 mg PO [place]@1700 [facility] Medical Necessity - Tobacco Use Smoking Status: Never smoker Assessment/Plan All Active Problems (Last Reviewed 11/23/19 @ 07:[address] Julio César Armijo MD) Appendicitis (Acute) MEGAN (acute kidney injury) (Acute) Garcia's palsy (Resolved) 79 y/o F with acute appendicitis status post lap appendectomy postop day 3, INR of 3.2?on Coumadin for A. fib--status post FFP down to 1.8, acute kidney injury on chronic kidney disease, postop ileus 1. Okay to continue sips, encourage ambulation in halls, await bowel function, checking KUB 2. Continue Zosyn 3.375g IV q12H, due to kidney function may even need to change dose again 3. Nephrology consulted due to acute kidney injury likely due to contrast. IVF at 50 cc/hr, fahad for i/os Kiara Del Real M.D. Pager: [phone] [facility] [address] [place] [address], [address] [place] [id number] Office: [phone]
--- NOTE | 2019-11-26 11:28 | PN.RENAL_ITS ---
Patient Problems: Active and Suspected Problems (Last Reviewed 11/23/19 @ 07:[address] Julio César Armijo MD) Appendicitis (Acute) MEGAN (acute kidney injury) (Acute) Subjective: No new complaints today. - Physical Exam Vitals/I&O's: Vital Signs Temp Pulse Resp BP Pulse Ox 98.2 F 79 20 H 141/45 H 96 11/26/19 08:34 11/26/19 10:30 11/26/19 10:30 11/26/19 08:34 11/26/19 08:34 Oxygen Flow Rate (L/min) 5 Oxygen Delivery Method Nasal Cannula Weight: 101.6 kg Body Mass Index (BMI) 37.9 Finger Stick Blood Glucose 124 Intake and Output for Last 24 Hours 11/24/19 11/25/19 11/26/19 23:59 23:59 23:59 Intake Total 1910.50 / 1910.50 1488.92 / 1688.92 953.83 / 953.83 Output Total 1705 / 1705 360 / 485 250 / 250 Balance 205.50 / 205.50 1128.92 / 1203.92 703.83 / 703.83 General: Alert, Oriented x3, Cooperative HEENT: Atraumatic, PERRLA, EOMI, Normocephalic Neck: Supple, No JVD, Negative Carotid Bruits Lungs: Clear to auscultation, Normal air movement Cardiovascular: Regular rate, No murmurs Abdomen: Bowel Sounds Present, Soft, Non Tender Extremities: No edema, Capillary Refill Less than 3 Seconds Skin: No rashes, No breakdown Musculoskeletal: No Tenderness to Palpation of Joints or Extremities Neurological: Cranial nerves II-XII grossly intact Psych/Mental Status: Normal Affect, Appropriate Microbiology Past 72 Hours 11/23/19 13:16 Incision/Surgical Site Gram Stain - Final 11/23/19 13:16 Incision/Surgical Site Wound Culture - Final Escherichia coli Laboratory Results 11/25/19 11:34: POC Glucose 136 H 11/25/19 18:25: POC Glucose 156 H 11/26/19 00:02: POC Glucose 116 H 11/26/19 05:20: PT 19.4 H, INR 1.7 11/26/19 05:20: WBC 11.4 H, RBC 3.04 L, Hgb 9.0 L, Hct 28.3 L, MCV 93.1, MCH 29.6, MCHC 31.8 L, RDW Std Deviation 47.8 H, RDW Coeff of Ashley 14.2, Plt Count 197, MPV 11.6, Immature Gran % (Auto) 0.400, Neut % (Auto) 75.4 H, Lymph % (Auto ) 9.8 L, [place] % (Auto) 10.9 H, Eos % (Auto) 3.2, Baso % (Auto) 0.3, Absolute Neuts (auto) 8.6 H, Absolute Lymphs (auto) 1.12, Nucleated RBC % 0 11/26/19 05:20: Sodium 132 L, Potassium 4.8, Chloride 103, Carbon Dioxide 18.0 L , Anion Gap 11, BUN 55 H, Creatinine 4.29 H, Estim Creat Clear Calc 8.27, Est GFR (MDRD) Af Amer 13 L, Est GFR (MDRD) Non-Af 11 L, BUN/Creatinine Ratio 12.8, Glucose 109 H, Calcium 7.6 L, Magnesium 2.1 11/26/19 05:40: B-Natriuretic Peptide 611.6 H 11/26/19 06:26: POC Glucose 119 H Current Medications Acetaminophen (Tylenol) 650 mg PO Q6H PRN PRN PRN Reason: Pain Score 1-10/10 Albuterol Sulfate (Ventolin Aerosols) 2.5 mg INHALATION Q2H PRN PRN PRN Reason: WHEEZING Last Admin: 11/24/19 23:43 Dose: 2.5 mg Documented by: Albuterol/Ipratropium (Duoneb) 3 ml INHALATION Q4HWA.RT [facility] Last Admin: 11/26/19 10:19 Dose: 3 ml Documented by: Allopurinol (Zyloprim) 300 mg PO DAILY@0800 [facility] Last Admin: 11/26/19 09:17 Dose: 300 mg Documented by: Amlodipine Besylate (Norvasc) 10 mg PO DAILY [facility] Last Admin: 11/26/19 09:17 Dose: 10 mg Documented by: Dextrose (D50w Syringe) 0 gm IV X1 PRN; Protocol PRN Reason: Hypoglycemia Flecainide Acetate (Tambocor) 100 mg PO BID [facility] Last Admin: 11/26/19 09:18 Dose: 100 mg Documented by: Fluticasone Propionate (Flonase Nasal [place]) 1 spray NASAL BID [facility] Last Admin: 11/26/19 09:24 Dose: 1 spray Documented by: Glucagon () 1 mg IM .X1 PRN PRN Reason: Hypoglycemia Heparin Sodium (Porcine) (Heparin Na) 0 unit IV UD PRN; Protocol Hydralazine HCl (Apresoline Iv) 5 mg IV Q6H PRN PRN PRN Reason: SBP > 160 Sodium Chloride () 250 mls @ 15 mls/hr IV .[id number] PRN PRN Reason: Saline Flush Last Infusion: 11/26/19 04:13 Dose: 0 mls/hr Documented by: Piperacillin Sod/Tazobactam (Sod 3.375 gm/ Sodium Chloride) 50 mls @ 12.5 mls/hr IV Q12 [facility] Last Admin: 11/26/19 09:59 Dose: 12.5 mls/hr Documented by: Pantoprazole Sodium 40 mg/ (Sodium Chloride) 110 mls @ 330 mls/hr IV Q24 [facility] Last Infusion: 11/26/19 09:46 Dose: Infused Documented by: Heparin Sodium/Dextrose () 25,000 units in 250 mls @ 14 mls/hr IV .[id number] [facility]; Protocol Insulin Human Lispro (Humalog Kwikpen (Bkc)) 0 unit SC Q6 [facility]; Protocol Last Admin: 11/26/19 06:28 Dose: Not Given Documented by: Levothyroxine Sodium (Synthroid) 175 mcg PO DAILY@0600 [facility] Last Admin: 11/26/19 06:29 Dose: 175 mcg Documented by: Metoprolol Succinate (Toprol Xl (Beta Trang)) 25 mg PO DAILY [facility] Last Admin: 11/26/19 09:17 Dose: 25 mg Documented by: Morphine Sulfate () 2 mg IV Q3H PRN PRN PRN Reason: Pain Score 6-10/10 Last Admin: 11/23/19 08:59 Dose: 2 mg Documented by: Ondansetron HCl (Zofran) 4 mg IV Q8H PRN PRN PRN Reason: NAUSEA/VOMITING Oxycodone HCl (Oxyir) 5 - 10 mg PO Q4H PRN PRN PRN Reason: Pain Score 6-10/10 Last Admin: 11/23/19 20:58 Dose: 10 mg Documented by: Pravastatin Sodium (Pravachol) 40 mg PO QHS [facility] Last Admin: 11/25/19 22:11 Dose: 40 mg Documented by: Sodium Chloride () 10 - 40 ml IV UD PRN PRN Reason: SALINE FLUSH Last Admin: 11/26/19 09:20 Dose: 10 ml Documented by: Sodium Chloride ([place] Nasal [place]) 2 spray NASAL TID PRN PRN PRN Reason: NASAL DRYNESS Tamsulosin HCl (Flomax) 0.4 mg PO DAILY@1730 [facility] Last Admin: 11/25/19 18:25 Dose: 0.4 mg Documented by: Medical Necessity - Tobacco Use Smoking Status: Never smoker Assessment/Plan All Active Problems (Last Reviewed 11/23/19 @ 07:[address] Julio César Armijo MD) Appendicitis (Acute) MEGAN (acute kidney injury) (Acute) Garcia's palsy (Resolved) Acute renal failure kidney disease stage III She has known history of CKD stage III with baseline creatinine around 1.4-1.6. Now has acute renal failure. Initial CT abdomen did not show any hydronephrosis Urine analysis shows protein which is baseline she did have a CT abdomen with contrast on the . Most likely ATN Blood pressure is ok Received fluids overnight, developed some dyspnea this morning. IV fluids have been stopped. Received a dose of Lasix. She has made about 300 cc of urine since then. Creatinine continues to worsen. If renal function continues to worsen, she may need dialysis. Keep her off IV fluids for now. Possible ileus. Today she says she has had a small bowel movement. Discussed with primary service. She may need TPN if bowel function does not return completely. Proteinuria. Has about 1.3 g of protein at baseline. Usually on losartan, hold for now History of fluid retention. As per our office records, she is on Lasix and Aldactone. Plan No acute indications for dialysis today. Urine output is better with Lasix. Hopefully will have recovery soon. She has known history of atrial fibrillation and was on anticoagulation. Hold Coumadin and keep her on heparin drip in case we need to put in a dialysis line. I am okay with PICC line if needed for IV access for TPN. Discussed with patient, family at bedside, hospitalist .
[2019-11-26] MEDS: Insulin Lispro 100 UNIT/ML INSULN.PEN SC (12:05)
[2019-11-26 12:16] LABS: Bedside Glucose 174 mg/dL (70-110)
[2019-11-26 13:55] LABS: Partial Thromboplast Time 42.8 Seconds (24.1-36.2)
[2019-11-26] MEDS: HEPARIN/D5w 25,000 UNITS 25,000 UNITS/250 ML IV.SOLN. 14 UNITS IV (15:07)
--- NOTE | 2019-11-26 15:34 | PCM.HP.ID ---
Problem List (1) Appendicitis Status: Acute Reason for Consult: appendicitis Consulted by: Dr. Askew History of Present Illness: The patient is a 79 year old F presented 11/23 with one day history of diffuse abd pain. Had not been feeling well for about a week, some pain in abd, some nausea, some chills. On 11/23 pain was throughout her abd. After doing several hours of housework and driving her grandson to get new boots, came to the ED, found to have acute appendicitis. Taken to OR 11/[address] Del Real, appendix had burst, remains on zosyn since then with worsening Cr. Feeling ok, mild abd soreness, not having BM. Full ROS performed and neg except as noted above. - Medical History Past Medical History (Chronic Problems): Chronic Problems (Last Reviewed 11/23/19 @ 07:[address] 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) Essential hypertension (Chronic) Diabetes mellitus (Chronic) Cerebrovascular disease (Chronic) asympt small left thalamic infarct Paroxysmal atrial fibrillation (Chronic) on coumadin Gout (Chronic) Osteoporosis (Chronic) Hypothyroid (Chronic) Dyslipidemia (Chronic) HLD (hyperlipidemia) (Chronic) CKD (chronic kidney disease) stage 2, GFR 60-89 ml/min (Chronic) Allergies/Adverse Reactions: Allergies atorvastatin calcium [From Lipitor] Adverse Reaction (Verified 11/22/19 20:19) cough enalapril maleate [From Vasotec] Adverse Reaction (Verified 11/22/19 20:19) cough enalaprilat dihydrate [From Vasotec] Adverse Reaction (Verified 11/22/19 20:19) cough Home Medications: Ambulatory Orders Medication Instructions Recorded Albuterol Inhaler [Ventolin Hfa] 2 puff INHALATION Q4H PRN PRN 08/10/15 Allopurinol [Zyloprim] 300 mg PO DAILY 08/10/15 Amlodipine [Norvasc] 10 mg PO DAILY 08/10/15 Aspirin [Aspirin, Baby] 81 mg PO DAILY@0800 08/10/15 Cholecalciferol (VIT D3) [Vitamin 2,000 unit PO BID 11/10/15 D3] Insulin Glargine,Hum.rec.anlog 27 unit SQ QHS 08/10/15 [Lantus] Insulin Lispro [Humalog] 10 unit SQ TIDCM 08/10/15 Pravastatin [Pravachol] 40 mg PO DAILY 10/04/18 Levothyroxine Sodium [Synthroid] 175 mcg PO DAILY 10/25/18 calcium carbonate 500 mg (1,250 1 tab PO DAILY tab 03/04/19 mg)-vitamin D3 200 unit tablet folic acid 0.8 mg capsule 0.8 mg PO DAILY 03/04/19 multivitamin with minerals 1 tab PO DAILY tab 03/04/19 Flecainide Acetate 100 mg PO BID 11/23/19 Furosemide [Lasix] 40 mg PO BID 11/23/19 Losartan Potassium [Cozaar] 50 mg PO BID 11/23/19 Metoprolol Succinate [Toprol Xl] 37.5 mg PO DAILY 11/23/19 Warfarin Sodium [Coumadin] 6 mg PO .COMPLEX 11/23/19 - Social History Tobacco Use: non-smoker Vital Signs Temp Pulse Resp BP Pulse Ox 98.2 F 81 18 141/45 H 96 11/26/19 08:34 11/26/19 14:58 11/26/19 14:58 11/26/19 08:34 11/26/19 08:34 Oxygen Flow Rate (L/min) 5 Oxygen Delivery Method Nasal Cannula Weight: 101.6 kg Body Mass Index (BMI) 37.9 Finger Stick Blood Glucose 124 Microbiology Past 72 Hours 11/23/19 13:16 Gram Stain - Final Incision/Surgical Site Wound Culture - Final Escherichia coli Anaerobic Culture - Preliminary Checking for anaerobes, further studies to follow. Laboratory Tests Past 24 Hrs 11/26/19 11/26/19 11/26/19 05:20 05:20 05:20 WBC 11.4 H RBC 3.04 L Hgb 9.0 L Hct 28.3 L MCV 93.1 MCH 29.6 MCHC 31.8 L RDW Std Deviation 47.8 H RDW Coeff of Ashley 14.2 Plt Count 197 MPV 11.6 Immature Gran % (Auto) 0.400 Neut % (Auto) 75.4 H Lymph % (Auto) 9.8 L [place] % (Auto) 10.9 H Eos % (Auto) 3.2 Baso % (Auto) 0.3 Absolute Neuts (auto) 8.6 H Absolute Lymphs (auto) 1.12 Nucleated RBC % 0 PT 19.4 H INR 1.7 APTT Sodium 132 L Potassium 4.8 Chloride 103 Carbon Dioxide 18.0 L Anion Gap 11 BUN 55 H Creatinine 4.29 H Estim Creat Clear Calc 8.27 Est GFR (MDRD) Af Amer 13 L Est GFR (MDRD) Non-Af 11 L BUN/Creatinine Ratio 12.8 Glucose 109 H Calcium 7.6 L Magnesium 2.1 B-Natriuretic Peptide 11/26/19 11/26/19 05:40 13:35 WBC RBC Hgb Hct MCV MCH MCHC RDW Std Deviation RDW Coeff of Ashley Plt Count MPV Immature Gran % (Auto) Neut % (Auto) Lymph % (Auto) [place] % (Auto) Eos % (Auto) Baso % (Auto) Absolute Neuts (auto) Absolute Lymphs (auto) Nucleated RBC % PT INR APTT 42.8 H Sodium Potassium Chloride Carbon Dioxide Anion Gap BUN Creatinine Estim Creat Clear Calc Est GFR (MDRD) Af Amer Est GFR (MDRD) Non-Af BUN/Creatinine Ratio Glucose Calcium Magnesium B-Natriuretic Peptide 611.6 H - Other Studies Radiology: [] reviewed Other Studies: [] Route of nutrition/ use of supplements: [] Nutritional Intake: [] IV Site: [] Morales Catheter: [] - Physical Exam General: Alert, Oriented x3, Cooperative, No apparent distress HEENT: Atraumatic, PERRLA, EOMI Neck: Supple, No Nodes Lungs: Clear to auscultation, Normal air movement Cardiovascular: Regular rate, Regular Rhythm Abdomen: Soft, Non Tender, Distended - mild Extremities: Edema Skin: Incision - no redness or drainage at abd incisions IV Site: Peripheral, without redness Musculoskeletal: No Tenderness to Palpation of Joints or Extremities Neurological: Cranial nerves II-XII grossly intact - Assessment/Plan Antibiotics: [] Assessment/Plan: [] Active and Suspected Problems (Last Reviewed 11/23/19 @ 07:[address] Julio César Armijo MD) Appendicitis (Acute) MEGAN (acute kidney injury) (Acute) ruptured appendicitis - s/p OR 11/[address] Del Real. Surg cx with ecoli. Worsening MEGAN on CKD. Cont zosyn q12h. Will order urine eos. Wbc much improved. No fever here. Will follow, thank you.
[2019-11-26] MEDS: Acetaminophen 325 MG Tablet 650 MG PO (17:37)
[2019-11-26] MEDS: Tamsulosin HCl 0.4 MG Capsule PO (17:37)
[2019-11-26 18:00] LABS: Bedside Glucose 135 mg/dL (70-110)
[2019-11-26 18:58] LABS: Bacteria 0 SEEN /hpf (None Seen); Mucous, Urine 0 SEEN /hpf (<or=2+); Squamous Epithelial Cells - UA 0 SEEN /hpf (5-10); White Blood Cells 0 SEEN /hpf (0-5)
[2019-11-26 19:03] LABS: Color, Urine Yellow (Yellow); Glucose, Dipstick Normal (Normal); Ketone-Dipstick Negative (Negative); Leukocyte Esterase-Dipstick 25 /ul (Negative); Nitrite-Dipstick Negative (Negative); Occult Blood-Urine 250 /ul (Negative); Protein-Dipstick 30 mg/dl (Negative); Specific Gravity, Urine 1.005 (1.002-1.030); Urine Bilirubin Dipstick Negative (Negative); Urine Clarity Clear (Clear); Urine Urobilinogen Normal (Normal); Urine pH 6.5 (5.0 - 8.0)
[2019-11-26 19:10] LABS: Red Blood Cells-Urine 5-10 SEEN /hpf (0-5)
[2019-11-26] MEDS: Bisacodyl 10 MG Suppository RECTAL (20:38)
[2019-11-26 21:35] LABS: Partial Thromboplast Time 105.1 Seconds (24.1-36.2)
[2019-11-26] MEDS: Sodium Chloride 0.65% 1 SPRAY SPRAY.BTL 2 SPRAY NASAL (22:51)
[2019-11-26] MEDS: Pravastatin 40 MG Tablet PO (22:52)
[2019-11-27] VITALS (8 sets, daily range): BP systolic 119–143; BP diastolic 62–76; PULSE 86–108; RESP 18–20; TEMP 36.6–37.3; O2SAT 92–94
[2019-11-27] LABS: Bedside Glucose 137 mg/dL (70-110)
[2019-11-27 04:04] LABS: Absolute Lymphocyte Count 0.99 X10^3/uL (0.83-4.51); Basophil# 0.04 X10^3/uL; Basophil% 0.4 % (0-1); Eosinophil# 0.34 X10^3/uL; Eosinophils% 3.5 % (0-5); Hematocrit 28.9 % (37-47); Hemoglobin 9.5 g/dL (12.0-15.0); Lymphocyte # 0.99 X10^3/ul (4.0); Lymphocyte % 10.3 % (19-41); Mean Corp Hgb Conc 32.9 g/dL (32-36); Mean Corpuscular Hgb 30.1 pg (27.0-32.0); Mean Corpuscular Volume 91.5 fL (81-99); Mean Platelet Vol. 11.2 fl (6.2-12.0); Monocyte# 1.23 X10^3/uL; Monocyte% 12.8 % (0-10); NRBC Flagged by Analyzer 0 % (0-5); Neutrophil # 6.96 X10^3/uL (2.7-7.7); Neutrophil % 72.6 % (47-70); Platelet Count 217 K/mm3 (150-450); RBC Distribution Width CV 14.1 % (11.6-14.6); RBC Distribution Width SD 46.9 fl (35.1-43.9); Red Blood Count 3.16 M/mm3 (4.2-5.4); White Blood Count 9.6 K/mm3 (4.4-11.0)
[2019-11-27 04:16] LABS: Partial Thromboplast Time 78.2 Seconds (24.1-36.2)
[2019-11-27 04:32] LABS: Anion Gap 11 (5-15); BUN 55 mg/dL (7-18); BUN/Creat Ratio 13.3 RATIO (10-20); Calcium,Total 7.8 mg/dL (8.5-10.1); Chloride 104 mmol/L (98-107); Creatinine, Serum 4.15 mg/dL (0.55-1.02); EST Glomerular Filtration Rate 11 mL/min (>60); Est Glom Filt Rate - Afr Amer 13 mL/min (>60); Estimated Creatinine Clearance 8.55 ml/min; Glucose 111 mg/dL (74-106); Potassium 4.6 mmol/L (3.5-5.1); Sodium Level 134 mmol/L (136-145)
--- NOTE | 2019-11-27 05:22 | NURSING ---
Dressing change and bedding change due to bleeding at IV site removed from previous shift.
[2019-11-27] MEDS: Levothyroxine 175 MCG Tablet PO (05:54)
[2019-11-27 06:05] LABS: Bedside Glucose 120 mg/dL (70-110)
[2019-11-27] MEDS: Ipratropium/Albuterol Sulfate 3 ML AMPUL.NEB INHALATION ×4 (06:58→18:40)
--- NOTE | 2019-11-27 09:19 | PCM.PN.SRG ---
Patient Problems: Active and Suspected Problems (Last Reviewed 11/23/19 @ 07:[address] Julio César Armijo MD) Appendicitis (Acute) MEGAN (acute kidney injury) (Acute) Subjective: Patient still not have any results from the enema or suppository as far as bowel function. Patient's creatinine is slightly down from 4.29-4.15, patient urine output did improve she did get Lasix x1 yesterday, IV fluids still going. - Physical Exam Vitals/I&O's: Vital Signs Temp Pulse Resp BP Pulse Ox 97.8 F 106 H 20 H 129/66 H 93 11/27/19 02:30 11/27/19 06:58 11/27/19 06:58 11/27/19 02:30 11/27/19 06:58 Oxygen Flow Rate (L/min) 5 Oxygen Delivery Method Nasal Cannula Weight: 226 lb 1.6 oz Body Mass Index (BMI) 37.9 Finger Stick Blood Glucose 124 Intake and Output for Last 24 Hours 11/25/19 11/26/19 11/27/19 23:59 23:59 23:59 Intake Total 1488.92 / 1688.92 1821.24 / 1821.24 301.33 / 301.33 Output Total 360 / 485 975 / 975 1350 / 1350 Balance 1128.92 / 1203.92 846.24 / 846.24 -1048.67 / -1048.67 General: Alert, Oriented x3, Cooperative, No apparent distress HEENT: Atraumatic Cardiovascular: Regular rate Abdomen: Soft, Non Tender, Distended - Mild, - - Incisions clean dry and intact with Steri's Microbiology Past 72 Hours 11/26/19 17:00 Urine Catheter - Morales Streptococcus pneumoniae Antigen (M - Final 11/26/19 17:00 Urine Catheter - Morales Legionella Antigen - Final 11/23/19 13:16 Incision/Surgical Site Gram Stain - Final 11/23/19 13:16 Incision/Surgical Site Wound Culture - Final Escherichia coli 11/23/19 13:16 Incision/Surgical Site Anaerobic Culture - Preliminary Checking for anaerobes, further studies to follow. Laboratory Results 11/26/19 05:40: B-Natriuretic Peptide 611.6 H 11/26/19 12:03: POC Glucose 174 H 11/26/19 13:35: APTT 42.8 H 11/26/19 17:00: Eos Smear Total Cells Pending 11/26/19 17:00: Urine Color Yellow, Urine Clarity Clear, Urine pH 6.5, Ur Specific [place] 1.005, Urine Protein 30 H, Urine Glucose (UA) Normal, Urine Ketones Negative, Urine Occult Blood 250 H, Urine Nitrite Negative, Urine Bilirubin Negative, Urine Urobilinogen Normal, Ur Leukocyte Esterase 25 H, Urine RBC 5-10 SEEN, Urine WBC 0 SEEN, Ur Squamous Epith Cells 0 SEEN, Urine Bacteria 0 SEEN, Urine Mucus 0 SEEN 11/26/19 17:41: POC Glucose 135 H 11/26/19 20:40: APTT 105.1 H* 11/26/19 23:35: POC Glucose 137 H 11/27/19 03:40: WBC 9.6, RBC 3.16 L, Hgb 9.5 L, Hct 28.9 L, MCV 91.5, MCH 30.1, MCHC 32.9, RDW Std Deviation 46.9 H, RDW Coeff of Ashley 14.1, Plt Count 217, MPV 11.2, Immature Gran % (Auto) 0.400, Neut % (Auto) 72.6 H, Lymph % (Auto) 10.3 L, [place] % (Auto) 12.8 H, Eos % (Auto) 3.5, Baso % (Auto) 0.4, Absolute Neuts (auto) 7.0, Absolute Lymphs (auto) 0.99, Nucleated RBC % 0 11/27/19 03:40: Sodium 134 L, Potassium 4.6, Chloride 104, Carbon Dioxide 19.0 L, Anion Gap 11, BUN 55 H, Creatinine 4.15 H, Estim Creat Clear Calc 8.55, Est GFR (MDRD) Af Amer 13 L, Est GFR (MDRD) Non-Af 11 L, BUN/Creatinine Ratio 13.3, Glucose 111 H, Calcium 7.8 L 11/27/19 03:40: APTT 78.2 H 11/27/19 05:53: POC Glucose 120 H Current Medications Acetaminophen (Tylenol) 650 mg PO Q6H PRN PRN PRN Reason: Pain Score 1-10/10 Last Admin: 11/26/19 17:37 Dose: 650 mg Documented by: Albuterol Sulfate (Ventolin Aerosols) 2.5 mg INHALATION Q2H PRN PRN PRN Reason: WHEEZING Last Admin: 11/24/19 23:43 Dose: 2.5 mg Documented by: Albuterol/Ipratropium (Duoneb) 3 ml INHALATION Q4HWA.RT PENDING SALE TO [facility] Last Admin: 11/27/19 06:58 Dose: 3 ml Documented by: Allopurinol (Zyloprim) 300 mg PO DAILY@0800 PENDING SALE TO [facility] Last Admin: 11/26/19 09:17 Dose: 300 mg Documented by: Amlodipine Besylate (Norvasc) 10 mg PO DAILY PENDING SALE TO [facility] Last Admin: 11/26/19 09:17 Dose: 10 mg Documented by: Dextrose (D50w Syringe) 0 gm IV X1 PRN; Protocol PRN Reason: Hypoglycemia Flecainide Acetate (Tambocor) 100 mg PO BID PENDING SALE TO [facility] Last Admin: 11/26/19 22:52 Dose: 100 mg Documented by: Fluticasone Propionate (Flonase Nasal [place]) 1 spray NASAL BID PENDING SALE TO [facility] Last Admin: 11/26/19 22:55 Dose: 1 spray Documented by: Glucagon () 1 mg IM .X1 PRN PRN Reason: Hypoglycemia Heparin Sodium (Porcine) (Heparin Na) 0 unit IV UD PRN; Protocol Hydralazine HCl (Apresoline Iv) 5 mg IV Q6H PRN PRN PRN Reason: SBP > 160 Sodium Chloride () 250 mls @ 15 mls/hr IV .[id number] PRN PRN Reason: Saline Flush Last Infusion: 11/27/19 02:49 Dose: 15 mls/hr Documented by: Piperacillin Sod/Tazobactam (Sod 3.375 gm/ Sodium Chloride) 50 mls @ 12.5 mls/hr IV Q12 PENDING SALE TO [facility] Last Infusion: 11/27/19 02:49 Dose: Infused Documented by: Pantoprazole Sodium 40 mg/ (Sodium Chloride) 110 mls @ 330 mls/hr IV Q24 PENDING SALE TO [facility] Last Infusion: 11/26/19 09:46 Dose: Infused Documented by: Heparin Sodium/Dextrose () 25,000 units in 250 mls @ 14 mls/hr IV .[id number] PENDING SALE TO [facility]; Protocol Last Titration: 11/27/19 04:17 Dose: 1,100 units/hr, 11 mls/hr Documented by: Insulin Human Lispro (Humalog Kwikpen (Bkc)) 0 unit SC Q6 PENDING SALE TO [facility]; Protocol Last Admin: 11/27/19 05:53 Dose: Not Given Documented by: Levothyroxine Sodium (Synthroid) 175 mcg PO DAILY@0600 PENDING SALE TO [facility] Last Admin: 11/27/19 05:54 Dose: 175 mcg Documented by: Metoprolol Succinate (Toprol Xl (Beta Trang)) 25 mg PO DAILY PENDING SALE TO [facility] Last Admin: 11/26/19 09:17 Dose: 25 mg Documented by: Morphine Sulfate () 2 mg IV Q3H PRN PRN PRN Reason: Pain Score 6-10/10 Last Admin: 11/23/19 08:59 Dose: 2 mg Documented by: Ondansetron HCl (Zofran) 4 mg IV Q8H PRN PRN PRN Reason: NAUSEA/VOMITING Oxycodone HCl (Oxyir) 5 - 10 mg PO Q4H PRN PRN PRN Reason: Pain Score 6-10/10 Last Admin: 11/23/19 20:58 Dose: 10 mg Documented by: Pravastatin Sodium (Pravachol) 40 mg PO QHS PENDING SALE TO [facility] Last Admin: 11/26/19 22:52 Dose: 40 mg Documented by: Sodium Chloride () 10 - 40 ml IV UD PRN PRN Reason: SALINE FLUSH Last Admin: 11/26/19 17:53 Dose: 10 ml Documented by: Sodium Chloride ([place] Nasal [place]) 2 spray NASAL TID PRN PRN PRN Reason: NASAL DRYNESS Last Admin: 11/26/19 22:51 Dose: 2 spray Documented by: Tamsulosin HCl (Flomax) 0.4 mg PO DAILY@1730 PENDING SALE TO [facility] Last Admin: 11/26/19 17:37 Dose: 0.4 mg Documented by: Medical Necessity - Tobacco Use Smoking Status: Never smoker Assessment/Plan All Active Problems (Last Reviewed 11/23/19 @ 07:[address] Julio César Armijo MD) Appendicitis (Acute) MEGAN (acute kidney injury) (Acute) Garcia's palsy (Resolved) 79 y/o F with acute appendicitis status post lap appendectomy postop day 4, on hep gtt previously coumadin for A fib, acute kidney injury on chronic kidney disease, postop ileus 1. Okay to continue sips, continue ambulation in halls, await bowel function, check CT abd/pelvis with PO contrast only 2. Continue Zosyn 3.375g IV q12 3. Nephrology consulted due to acute kidney injury likely due to contrast--Cr slightly improved 4.15. IVF at 50 cc/hr, fahad for i/os Kiara Del Real M.D. Pager: [phone] [facility] [address] [place] [address], [address] [place] [id number] Office: [phone]
--- NOTE | 2019-11-27 09:20 | CT_ITS ---
STUDY: CT ABDOMEN AND PELVIS WITHOUT CONTRAST REASON FOR EXAM: Female, 79 years old. ILEUS S/P LAP APPY 11/23 RADIATION DOSAGE (If Supplied By Facility): CTDIvol = ( 19.17 ) mGy, DLP = ( 1034.26 ) mGycm TECHNIQUE: Transaxial images were obtained from the dome of the diaphragm to the symphysis pubis with oral contrast, and without intravenous contrast. Sagittal and coronal images were reconstructed. Individualized dose optimization techniques were used for this CT. COMPARISON: CT of abdomen and pelvis dated November 23, 2019 FINDINGS: Diffuse body wall edema has developed since the prior study. Intracardiac pacemaker leads noted. A small pericardial effusion is present. Interval development of mild groundglass edema in the lung bases and small bilateral pleural effusions. Mild bibasilar atelectasis has also developed. Interval development of mild pelvic ascites since surgical intervention. Mild edema is also seen in the right lower anterior rectus muscle which is likely the site of the laparotomy. Punctate calcifications of the liver reidentified. No intrahepatic biliary duct dilatation or liver mass. Normal gallbladder and extrahepatic biliary system. Normal spleen. Small cyst/hypodensity seen in the uncinate process of the head of the pancreas on image 66/197 reidentified although not well viewed without intravenous contrast. The remaining aspects of the pancreas are grossly unremarkable. Normal bilateral adrenal glands. Normal right kidney. Normal left kidney. No hydronephrosis or renal masses. No large stones. Normal visualized stomach. Normal small intestine. There is mild gaseous distention of the transverse colon. Reidentification of multiple colonic diverticula. No bowel obstruction. No free air or free fluid. There is surgical suture material in the region of the appendix consistent with a prior appendectomy. There is diffuse atherosclerotic calcification of the abdominal aorta, without a demonstrated aneurysm. Normal inferior vena cava. Normal retroperitoneum. A Morales catheter is present in the bladder. Calcified heterogeneous uterine parenchyma reidentified presumably related to multiple fibroids. There are diffuse degenerative changes of the visualized lumbar spine. CT/Abdomen/Pel W ORAL Cont Only IMPRESSION: 1. There is mild gaseous distention of the transverse colon. Reidentification of multiple colonic diverticula. No bowel obstruction. No free air or free fluid. 2. There is surgical suture material in the region of the appendix consistent with a prior appendectomy. 3. Small cyst/hypodensity seen in the uncinate process of the head of the pancreas on image 66/197 reidentified although not well viewed without intravenous contrast. The remaining aspects of the pancreas are grossly unremarkable. 4. Diffuse body wall edema has developed since the prior study. Intracardiac pacemaker leads noted. A small pericardial effusion is present. 5. Interval development of mild groundglass edema in the lung bases and small bilateral pleural effusions. Mild bibasilar atelectasis has also developed. Electronically Signed: Jack Pruitt MD at 13:40 EST , Service support ,
[2019-11-27] MEDS: Fluticasone 0.05% 1 SPRAY NASAL.SRY NASAL ×2 (09:25→22:52)
[2019-11-27] MEDS: Metoprolol(XL)Succ 25 MG Tablet PO (09:25)
[2019-11-27] MEDS: Allopurinol 300 MG Tablet PO (09:25)
[2019-11-27] MEDS: Flecainide 100 MG Tablet PO ×2 (09:25→22:52)
[2019-11-27] MEDS: amLODIPine 10 MG Tablet PO (09:25)
[2019-11-27] MEDS: Ondansetron 4 MG/2 ML Vial IV (09:31)
--- NOTE | 2019-11-27 09:33 | PCM.PN.HOSP ---
Patient Problems: Active and Suspected Problems (Last Reviewed 11/23/19 @ 07:[address] Julio César Armijo MD) Appendicitis (Acute) MEGAN (acute kidney injury) (Acute) Reason for Visit: Multiple problems, perforated appendix, acute kidney injury, JUAN. Objective: Patient had a small bowel movement yesterday. No fever or chills. Blood pressure is stable. Patient had good urine output, 1300 mL since midnight and about 1000 mL yesterday. Creatinine stable. Vitals/I&O's: Vital Signs Temp Pulse Resp BP Pulse Ox 98.7 F 98 20 H 143/67 H 94 11/27/19 09:18 11/27/19 09:18 11/27/19 09:18 11/27/19 09:18 11/27/19 09:18 Oxygen Flow Rate (L/min) 3 Oxygen Delivery Method Nasal Cannula Weight: 226 lb 1.6 oz Body Mass Index (BMI) 37.9 Finger Stick Blood Glucose 124 Intake and Output for Last 24 Hours 11/25/19 11/26/19 11/27/19 23:59 23:59 23:59 Intake Total 1488.92 / 1688.92 1821.24 / 1821.24 301.33 / 301.33 Output Total 360 / 485 975 / 975 1350 / 1350 Balance 1128.92 / 1203.92 846.24 / 846.24 -1048.67 / -1048.67 General: Alert, Oriented x3, Cooperative HEENT: Atraumatic, PERRLA, EOMI, Normocephalic Neck: Supple, No JVD, Negative Carotid Bruits Lungs: Diminished, Rales - Bilateral coarse, Rhonchi Cardiovascular: Regular rate, Regular Rhythm - crackles., Normal S1, Normal S2, No murmurs Abdomen: Bowel Sounds Present, Soft, Non Tender, Non-Distended, Hypoactive Bowel Sounds, - - Morales catheter. Urine output has improved. No renal angle tenderness. No suprapubic tenderness. Extremities: Capillary Refill Less than 3 Seconds, Edema Skin: No rashes, No breakdown Musculoskeletal: No Tenderness to Palpation of Joints or Extremities, Arthritic Changes Lymphatic: No Cervical, Supraclavicular, or Inguinal Adenopathy Neurological: Cranial nerves II-XII grossly intact, Deep Tendon Reflexes 2+/4 and Symmetrical, Neuro grossly intact Psych/Mental Status: Normal Affect, Appropriate Microbiology Past 72 Hours 11/26/19 17:00 Urine Catheter - Morales Streptococcus pneumoniae Antigen (M - Final 11/26/19 17:00 Urine Catheter - Morales Legionella Antigen - Final 11/23/19 13:16 Incision/Surgical Site Gram Stain - Final 11/23/19 13:16 Incision/Surgical Site Wound Culture - Final Escherichia coli 11/23/19 13:16 Incision/Surgical Site Anaerobic Culture - Preliminary Checking for anaerobes, further studies to follow. Laboratory Results 11/26/19 05:40: B-Natriuretic Peptide 611.6 H 11/26/19 12:03: POC Glucose 174 H 11/26/19 13:35: APTT 42.8 H 11/26/19 17:00: Eos Smear Total Cells Pending 11/26/19 17:00: Urine Color Yellow, Urine Clarity Clear, Urine pH 6.5, Ur Specific [place] 1.005, Urine Protein 30 H, Urine Glucose (UA) Normal, Urine Ketones Negative, Urine Occult Blood 250 H, Urine Nitrite Negative, Urine Bilirubin Negative, Urine Urobilinogen Normal, Ur Leukocyte Esterase 25 H, Urine RBC 5-10 SEEN, Urine WBC 0 SEEN, Ur Squamous Epith Cells 0 SEEN, Urine Bacteria 0 SEEN, Urine Mucus 0 SEEN 11/26/19 17:41: POC Glucose 135 H 11/26/19 20:40: APTT 105.1 H* 11/26/19 23:35: POC Glucose 137 H 11/27/19 03:40: WBC 9.6, RBC 3.16 L, Hgb 9.5 L, Hct 28.9 L, MCV 91.5, MCH 30.1, MCHC 32.9, RDW Std Deviation 46.9 H, RDW Coeff of [place] 14.1, Plt Count 217, MPV 11.2, Immature Gran % (Auto) 0.400, Neut % (Auto) 72.6 H, Lymph % (Auto) 10.3 L, [place] % (Auto) 12.8 H, Eos % (Auto) 3.5, Baso % (Auto) 0.4, Absolute Neuts (auto) 7.0, Absolute Lymphs (auto) 0.99, Nucleated RBC % 0 11/27/19 03:40: Sodium 134 L, Potassium 4.6, Chloride 104, Carbon Dioxide 19.0 L, Anion Gap 11, BUN 55 H, Creatinine 4.15 H, Estim Creat Clear Calc 8.55, Est GFR (MDRD) Af Amer 13 L, Est GFR (MDRD) Non-Af 11 L, BUN/Creatinine Ratio 13.3, Glucose 111 H, Calcium 7.8 L 11/27/19 03:40: APTT 78.2 H 11/27/19 05:53: POC Glucose 120 H Current Medications Acetaminophen (Tylenol) 650 mg PO Q6H PRN PRN PRN Reason: Pain Score 1-10/10 Last Admin: 11/26/19 17:37 Dose: 650 mg Documented by: Albuterol Sulfate (Ventolin Aerosols) 2.5 mg INHALATION Q2H PRN PRN PRN Reason: WHEEZING Last Admin: 11/24/19 23:43 Dose: 2.5 mg Documented by: Albuterol/Ipratropium (Duoneb) 3 ml INHALATION Q4HWA.RT [facility] Last Admin: 11/27/19 06:58 Dose: 3 ml Documented by: Allopurinol (Zyloprim) 300 mg PO DAILY@0800 [facility] Last Admin: 11/26/19 09:17 Dose: 300 mg Documented by: Amlodipine Besylate (Norvasc) 10 mg PO DAILY [facility] Last Admin: 11/26/19 09:17 Dose: 10 mg Documented by: Dextrose (D50w Syringe) 0 gm IV X1 PRN; Protocol PRN Reason: Hypoglycemia Flecainide Acetate (Tambocor) 100 mg PO BID [facility] Last Admin: 11/26/19 22:52 Dose: 100 mg Documented by: Fluticasone Propionate (Flonase Nasal [place]) 1 spray NASAL BID [facility] Last Admin: 11/26/19 22:55 Dose: 1 spray Documented by: Glucagon () 1 mg IM .X1 PRN PRN Reason: Hypoglycemia Heparin Sodium (Porcine) (Heparin Na) 0 unit IV UD PRN; Protocol Hydralazine HCl (Apresoline Iv) 5 mg IV Q6H PRN PRN PRN Reason: SBP > 160 Sodium Chloride () 250 mls @ 15 mls/hr IV .[id number] PRN PRN Reason: Saline Flush Last Infusion: 11/27/19 02:49 Dose: 15 mls/hr Documented by: Piperacillin Sod/Tazobactam (Sod 3.375 gm/ Sodium Chloride) 50 mls @ 12.5 mls/hr IV Q12 [facility] Last Infusion: 11/27/19 02:49 Dose: Infused Documented by: Pantoprazole Sodium 40 mg/ (Sodium Chloride) 110 mls @ 330 mls/hr IV Q24 [facility] Last Infusion: 11/26/19 09:46 Dose: Infused Documented by: Heparin Sodium/Dextrose () 25,000 units in 250 mls @ 14 mls/hr IV .[id number] [facility]; Protocol Last Titration: 11/27/19 04:17 Dose: 1,100 units/hr, 11 mls/hr Documented by: Insulin Human Lispro (Humalog Kwikpen (Bkc)) 0 unit SC Q6 [facility]; Protocol Last Admin: 11/27/19 05:53 Dose: Not Given Documented by: Levothyroxine Sodium (Synthroid) 175 mcg PO DAILY@0600 [facility] Last Admin: 11/27/19 05:54 Dose: 175 mcg Documented by: Metoprolol Succinate (Toprol Xl (Beta Trang)) 25 mg PO DAILY [facility] Last Admin: 11/26/19 09:17 Dose: 25 mg Documented by: Morphine Sulfate () 2 mg IV Q3H PRN PRN PRN Reason: Pain Score 6-10/10 Last Admin: 11/23/19 08:59 Dose: 2 mg Documented by: Ondansetron HCl (Zofran) 4 mg IV Q8H PRN PRN PRN Reason: NAUSEA/VOMITING Oxycodone HCl (Oxyir) 5 - 10 mg PO Q4H PRN PRN PRN Reason: Pain Score 6-10/10 Last Admin: 11/23/19 20:58 Dose: 10 mg Documented by: Pravastatin Sodium (Pravachol) 40 mg PO QHS [facility] Last Admin: 11/26/19 22:52 Dose: 40 mg Documented by: Sodium Chloride () 10 - 40 ml IV UD PRN PRN Reason: SALINE FLUSH Last Admin: 11/26/19 17:53 Dose: 10 ml Documented by: Sodium Chloride ([place] Nasal [place]) 2 spray NASAL TID PRN PRN PRN Reason: NASAL DRYNESS Last Admin: 11/26/19 22:51 Dose: 2 spray Documented by: Tamsulosin HCl (Flomax) 0.4 mg PO DAILY@1730 [facility] Last Admin: 11/26/19 17:37 Dose: 0.4 mg Documented by: STROKE Vital Signs/Narrative: Vital Signs Temp Pulse Resp BP Pulse Ox 11/27/19 09:18 98.7 F 98 20 H 143/67 H 94 11/27/19 06:58 106 H 20 H 93 Medical Necessity - Tobacco Use Smoking Status: Never smoker Assessment/Plan All Active Problems (Last Reviewed 11/23/19 @ 07:[address] Julio César Armijo MD) Appendicitis (Acute) MEGAN (acute kidney injury) (Acute) Garcia's palsy (Resolved) The patient is a 79 year old F with a significant for paroxysmal A. fib; permanent pacemaker; sick sinus syndrome who presents emergency department with excruciating right lower quadrant pain and abdomen and pelvis CT showing acute appendicitis. 1. Acute perforated appendicitis: Had laparoscopic appendectomy on 11/23/2019. On zosyn. Patient is afebrile but has high white count. 11/26: Leukocytosis improving. H&H is stable. KUB shows adynamic ileus. Patient remains n.p.o. Has not passed flatus. Discussed with surgeon. 11/27: Patient had bowel movement yesterday, small. Bowel sounds improved. Discussed with surgeon. CT abdomen with oral contrast ordered. CT scan abdomen pelvis discussed with surgeon. Shows mild gaseous distention of transverse colon. The contrast reaching up to the colon. No free fluid or abscess or free air seen. Surgical changes in the region of prior appendectomy. 2. Acute respiratory distress/insufficiency with hypoxia: 11/26: Crepitations present on lung exam. Lasix 40 mg IV ordered. IV fluid discontinued. Chest x-ray with BNP ordered. Flonase ordered. Patient is on bronchodilator. Continue incentive spirometry and pep 11/27: Continue incentive spirometry and pep. 11/28 continue same. Lower cuts of CT abdomen shows no pneumonic consolidation but bilateral pleural effusion. 3. 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 Overall is suggestive of right ventricular failure, moderate pulmonary hypertension and HFpEF Echo in October 2018. Interpretation Summary Mild concentric left ventricular hypertrophy. The estimated ejection fraction is 75 %. Mildly dilated right ventricle. The left atrium is moderately enlarged. Mild-Moderate (1-2+) posteriorly directed mitral valve insufficiency. Mild (1+) tricuspid valve insufficiency. Right ventricular systolic pressure estimated to be 51 mmHg. Moderate pulmonary hypertension. Compared to echo report dated 03/10/2013, LV function has remained the same, but RVSP has now increased from 30 to 51 mm Hg. Pt now appears to be in atrial fibrillation. 11/26: Chest x-ray ordered. Chest x-ray is independently reviewed and shows a left CP angle obliteration possible subsegmental atelectasis or small pneumonic infiltrate. already on IV Zosyn. Urinary antigens ordered. Patient does not sputum. ID is consulted. E. coli UTI: On IV Zosyn. It is also for perforated appendicitis. 11/27: Discussed with ID. Mari with the antibiotic. 3. Acute on CKD stage IV with urine retention most probably JUAN/postoperative urine retention. Revenue Settlements Administrator is been consulted. Will start Morales catheter for drainage. Patient creatinine jumped up from 1.69-2.52 most probably Intra-Op urine retention. 11/25: Patient had Morales catheter yesterday. Creatinine went up from 2.5-3.5. Seen by test and turn up technician. Most probably JUAN. On IV fluid normal saline 200 mils per hour. Titrate the flow of normal saline as per hydration status and fluid overload. IV contrast was given on 11/23 therefore more than 48 hours. 11/26: BUN/creatinine getting worse 55/4.29, estimated creatinine clearance less than 10 mL/min. Discussed with test and turn up technician. Monitor BUN/creatinine may require temporary dialysis. 11/27: BUN/creatinine seems plateau. Good urine output. Indication for dialysis is under consideration but I think probably she will not need it 11/28: Patient had good urine output about 1300 mL since morning and about 1000 mL yesterday. Discussed with test and turn up technician. No need for dialysis as kidney seems to be stabilizing with good urine output. 4. pAfib - Flecainide, metoprolol. Rate stable. Hold Coumadin. 11/25: Resume Coumadin 11/26 INR 1.7. Coumadin resumed. 5. Dmt2 - SSI, on Lantus. On clear liquids 6. Hx SSS - has pacemaker 7. hypothyroid - synthroid 8. Hx Gout - allopurinol 9. [place] palsy - not on steroids. 10. HTN - elevated. home meds + prn hydralazine. DVT ppx: SCDs I talked to the patient's son Mr. Garcia on phone. We discussed about the admission and hospital course regarding natural course of contrast-induced nephropathy, abdominal problem, perforated appendix and further plan with CT with oral contrast. Yesterday he talked with test and turn up technician. Total time of the visit including total time spent in counseling or coordination of care, (more than 50% of the total time, spent in obtaining medical information from nurses and other ancillary care providers), coordination of care with consultants review of labs and imaging is 30 minutes Microbiology Past 72 Hours 11/26/19 17:00 Urine Catheter - Morales Streptococcus pneumoniae Antigen (M - Final 11/26/19 17:00 Urine Catheter - Morales Legionella Antigen - Final 11/23/19 13:16 Incision/Surgical Site Gram Stain - Final 11/23/19 13:16 Incision/Surgical Site Wound Culture - Final Escherichia coli 11/23/19 13:16 Incision/Surgical Site Anaerobic Culture - Preliminary Checking for anaerobes, further studies to follow. Laboratory Results 11/26/19 05:40: B-Natriuretic Peptide 611.6 H 11/26/19 12:03: POC Glucose 174 H 11/26/19 13:35: APTT 42.8 H 11/26/19 17:00: Eos Smear Total Cells Pending 11/26/19 17:00: Urine Color Yellow, Urine Clarity Clear, Urine pH 6.5, Ur Specific [place] 1.005, Urine Protein 30 H, Urine Glucose (UA) Normal, Urine Ketones Negative, Urine Occult Blood 250 H, Urine Nitrite Negative, Urine Bilirubin Negative, Urine Urobilinogen Normal, Ur Leukocyte Esterase 25 H, Urine RBC 5-10 SEEN, Urine WBC 0 SEEN, Ur Squamous Epith Cells 0 SEEN, Urine Bacteria 0 SEEN, Urine Mucus 0 SEEN 11/26/19 17:41: POC Glucose 135 H 11/26/19 20:40: APTT 105.1 H* 11/26/19 23:35: POC Glucose 137 H 11/27/19 03:40: WBC 9.6, RBC 3.16 L, Hgb 9.5 L, Hct 28.9 L, MCV 91.5, MCH 30.1, MCHC 32.9, RDW Std Deviation 46.9 H, RDW Coeff of [place] 14.1, Plt Count 217, MPV 11.2, Immature Gran % (Auto) 0.400, Neut % (Auto) 72.6 H, Lymph % (Auto) 10.3 L, [place] % (Auto) 12.8 H, Eos % (Auto) 3.5, Baso % (Auto) 0.4, Absolute Neuts (auto) 7.0, Absolute Lymphs (auto) 0.99, Nucleated RBC % 0 11/27/19 03:40: Sodium 134 L, Potassium 4.6, Chloride 104, Carbon Dioxide 19.0 L, Anion Gap 11, BUN 55 H, Creatinine 4.15 H, Estim Creat Clear Calc 8.55, Est GFR (MDRD) Af Amer 13 L, Est GFR (MDRD) Non-Af 11 L, BUN/Creatinine Ratio 13.3, Glucose 111 H, Calcium 7.8 L 11/27/19 03:40: APTT 78.2 H 11/27/19 05:53: POC Glucose 120 H 11/27/19 09:28: APTT Pending Clinical Impression(s) from Imaging Studies Abdomen/Pelvis CT 11/22/19 21:26 IMPRESSION: Indeterminate study. Probable acute nonperforated appendicitis Recommend clinical correlation. Renal Ultrasound 11/24/19 10:31 IMPRESSION: Nonspecific increased echogenicity of the kidneys suggesting underlying medical renal disease no evidence of hydronephrosis possible 6 mm cyst right kidney. The ureteral jets are not seen. Recommend correlation with clinical findings laboratory values comparison studies demonstrate inflammatory changes in the right lower quadrant at the level of the cecum suspicious for appendicitis as described on the recent study. There is also an abnormal mass within the mesentery that measures 2.7 cm. Electronically Signed: Miriam Warner MD at 13:49 EST Tel , Service support , Chest X-Ray 11/24/19 16:34 IMPRESSION: Stable mild cardiomegaly Worsening left lower lobe retrocardiac opacity infiltrate and/or atelectasis Cardiac pacemaker Electronically Signed: Vincent Silvestre at 18:47 EST Tel , Service support , KUB X-Ray 11/24/19 16:50 IMPRESSION: Likely ileus with distended loops of bowel predominantly colon Electronically Signed: Vincent Silvestre, at 18:50 EST Tel , Service support , Chest X-Ray 11/26/19 08:01 IMPRESSION: Left cardiac pacemaker is noted in place. Subsegmental atelectasis is also seen in the left lung base and a small left lung base pneumonic infiltrate cannot be excluded. Electronically Signed: Royce Martinez, at 11:14 EST Tel , Service support , KUB X-Ray 11/26/19 08:09 IMPRESSION: Mild adynamic ileus.. Electronically Signed: Royce Martinez, at 14:07 EST Tel , Service support , Abdomen CT 11/27/19 09:20 IMPRESSION: 1. There is mild gaseous distention of the transverse colon. Reidentification of multiple colonic diverticula. No bowel obstruction. No free air or free fluid. 2. There is surgical suture material in the region of the appendix consistent with a prior appendectomy. 3. Small cyst/hypodensity seen in the uncinate process of the head of the pancreas on image 66/197 reidentified although not well viewed without intravenous contrast. The remaining aspects of the pancreas are grossly unremarkable. 4. Diffuse body wall edema has developed since the prior study. Intracardiac pacemaker leads noted. A small pericardial effusion is present. 5. Interval development of mild groundglass edema in the lung bases and small bilateral pleural effusions. Mild bibasilar atelectasis has also developed. Code Visit Inpatient E&M: 31391 Subs Hosp L3
[2019-11-27 09:48] LABS: Partial Thromboplast Time 73.6 Seconds (24.1-36.2)
--- NOTE | 2019-11-27 10:27 | PCM.PN.ID ---
Patient Problems: Active and Suspected Problems (Last Reviewed 11/23/19 @ 07:[address] Julio César Armijo MD) Appendicitis (Acute) MEGAN (acute kidney injury) (Acute) Subjective: No fever, feeling a little better. No flatus. CT today. - Physical Exam Vitals/I&O's: Vital Signs Temp Pulse Resp BP Pulse Ox 98.7 F 98 20 H 143/67 H 94 11/27/19 09:18 11/27/19 09:25 11/27/19 09:18 11/27/19 09:25 11/27/19 09:18 Oxygen Flow Rate (L/min) 3 Oxygen Delivery Method Nasal Cannula Weight: 102.557 kg Body Mass Index (BMI) 37.9 Finger Stick Blood Glucose 124 Intake and Output for Last 24 Hours 11/25/19 11/26/19 11/27/19 23:59 23:59 23:59 Intake Total 1488.92 / 1688.92 1821.24 / 1821.24 577.13 / 577.13 Output Total 360 / 485 975 / 975 1350 / 1350 Balance 1128.92 / 1203.92 846.24 / 846.24 -772.87 / -772.87 General: Alert, Cooperative, No apparent distress Lungs: Clear to auscultation, Normal air movement Abdomen: Soft, Non Tender, Distended Skin: No rashes Microbiology Past 72 Hours 11/26/19 17:00 Urine Catheter - Morales Streptococcus pneumoniae Antigen (M - Final 11/26/19 17:00 Urine Catheter - Morales Legionella Antigen - Final 11/23/19 13:16 Incision/Surgical Site Gram Stain - Final 11/23/19 13:16 Incision/Surgical Site Wound Culture - Final Escherichia coli 11/23/19 13:16 Incision/Surgical Site Anaerobic Culture - Preliminary Checking for anaerobes, further studies to follow. Laboratory Results 11/26/19 12:03: POC Glucose 174 H 11/26/19 13:35: APTT 42.8 H 11/26/19 17:00: Eos Smear Total Cells Pending 11/26/19 17:00: Urine Color Yellow, Urine Clarity Clear, Urine pH 6.5, Ur Specific [place] 1.005, Urine Protein 30 H, Urine Glucose (UA) Normal, Urine Ketones Negative, Urine Occult Blood 250 H, Urine Nitrite Negative, Urine Bilirubin Negative, Urine Urobilinogen Normal, Ur Leukocyte Esterase 25 H, Urine RBC 5-10 SEEN, Urine WBC 0 SEEN, Ur Squamous Epith Cells 0 SEEN, Urine Bacteria 0 SEEN, Urine Mucus 0 SEEN 11/26/19 17:41: POC Glucose 135 H 11/26/19 20:40: APTT 105.1 H* 11/26/19 23:35: POC Glucose 137 H 11/27/19 03:40: WBC 9.6, RBC 3.16 L, Hgb 9.5 L, Hct 28.9 L, MCV 91.5, MCH 30.1, MCHC 32.9, RDW Std Deviation 46.9 H, RDW Coeff of [place] 14.1, Plt Count 217, MPV 11.2, Immature Gran % (Auto) 0.400, Neut % (Auto) 72.6 H, Lymph % (Auto) 10.3 L, [place] % (Auto) 12.8 H, Eos % (Auto) 3.5, Baso % (Auto) 0.4, Absolute Neuts (auto) 7.0, Absolute Lymphs (auto) 0.99, Nucleated RBC % 0 11/27/19 03:40: Sodium 134 L, Potassium 4.6, Chloride 104, Carbon Dioxide 19.0 L, Anion Gap 11, BUN 55 H, Creatinine 4.15 H, Estim Creat Clear Calc 8.55, Est GFR (MDRD) Af Amer 13 L, Est GFR (MDRD) Non-Af 11 L, BUN/Creatinine Ratio 13.3, Glucose 111 H, Calcium 7.8 L 11/27/19 03:40: APTT 78.2 H 11/27/19 05:53: POC Glucose 120 H 11/27/19 09:28: APTT 73.6 H Current Medications Acetaminophen (Tylenol) 650 mg PO Q6H PRN PRN PRN Reason: Pain Score 1-10/10 Last Admin: 11/26/19 17:37 Dose: 650 mg Documented by: Albuterol Sulfate (Ventolin Aerosols) 2.5 mg INHALATION Q2H PRN PRN PRN Reason: WHEEZING Last Admin: 11/24/19 23:43 Dose: 2.5 mg Documented by: Albuterol/Ipratropium (Duoneb) 3 ml INHALATION Q4HWA.RT [facility] Last Admin: 11/27/19 10:24 Dose: 3 ml Documented by: Allopurinol (Zyloprim) 300 mg PO DAILY@0800 [facility] Last Admin: 11/27/19 09:25 Dose: 300 mg Documented by: Amlodipine Besylate (Norvasc) 10 mg PO DAILY [facility] Last Admin: 11/27/19 09:25 Dose: 10 mg Documented by: Dextrose (D50w Syringe) 0 gm IV X1 PRN; Protocol PRN Reason: Hypoglycemia Flecainide Acetate (Tambocor) 100 mg PO BID [facility] Last Admin: 11/27/19 09:25 Dose: 100 mg Documented by: Fluticasone Propionate (Flonase Nasal [place]) 1 spray NASAL BID [facility] Last Admin: 11/27/19 09:25 Dose: 1 spray Documented by: Glucagon () 1 mg IM .X1 PRN PRN Reason: Hypoglycemia Heparin Sodium (Porcine) (Heparin Na) 0 unit IV UD PRN; Protocol Hydralazine HCl (Apresoline Iv) 5 mg IV Q6H PRN PRN PRN Reason: SBP > 160 Sodium Chloride () 250 mls @ 15 mls/hr IV .[id number] PRN PRN Reason: Saline Flush Last Infusion: 11/27/19 09:52 Dose: 0 mls/hr Documented by: Piperacillin Sod/Tazobactam (Sod 3.375 gm/ Sodium Chloride) 50 mls @ 12.5 mls/hr IV Q12 [facility] Last Admin: 11/27/19 09:52 Dose: 12.5 mls/hr Documented by: Pantoprazole Sodium 40 mg/ (Sodium Chloride) 110 mls @ 330 mls/hr IV Q24 [facility] Last Infusion: 11/27/19 09:51 Dose: Infused Documented by: Heparin Sodium/Dextrose () 25,000 units in 250 mls @ 14 mls/hr IV .[id number] [facility]; Protocol Last Titration: 11/27/19 09:50 Dose: 1,100 units/hr, 11 mls/hr Documented by: Insulin Human Lispro (Humalog Kwikpen (Bkc)) 0 unit SC Q6 [facility]; Protocol Last Admin: 11/27/19 05:53 Dose: Not Given Documented by: Levothyroxine Sodium (Synthroid) 175 mcg PO DAILY@0600 [facility] Last Admin: 11/27/19 05:54 Dose: 175 mcg Documented by: Metoprolol Succinate (Toprol Xl (Beta Trang)) 25 mg PO DAILY [facility] Last Admin: 11/27/19 09:25 Dose: 25 mg Documented by: Morphine Sulfate () 2 mg IV Q3H PRN PRN PRN Reason: Pain Score 6-10/10 Last Admin: 11/23/19 08:59 Dose: 2 mg Documented by: Ondansetron HCl (Zofran) 4 mg IV Q8H PRN PRN PRN Reason: NAUSEA/VOMITING Last Admin: 11/27/19 09:31 Dose: 4 mg Documented by: Oxycodone HCl (Oxyir) 5 - 10 mg PO Q4H PRN PRN PRN Reason: Pain Score 6-10/10 Last Admin: 11/23/19 20:58 Dose: 10 mg Documented by: Pravastatin Sodium (Pravachol) 40 mg PO QHS [facility] Last Admin: 11/26/19 22:52 Dose: 40 mg Documented by: Sodium Chloride () 10 - 40 ml IV UD PRN PRN Reason: SALINE FLUSH Last Admin: 11/26/19 17:53 Dose: 10 ml Documented by: Sodium Chloride ([place] Nasal [place]) 2 spray NASAL TID PRN PRN PRN Reason: NASAL DRYNESS Last Admin: 11/26/19 22:51 Dose: 2 spray Documented by: Tamsulosin HCl (Flomax) 0.4 mg PO DAILY@1730 [facility] Last Admin: 11/26/19 17:37 Dose: 0.4 mg Documented by: Medical Necessity - Tobacco Use Smoking Status: Never smoker Route of nutrition/ use of supplements: [] Nutritional Intake: [] IV Site: [] Morales Catheter: [] - Assessment/Plan Antibiotics: [] Assessment/Plan: [] Active and Suspected Problems (Last Reviewed 11/23/19 @ 07:[address] Julio César Armijo MD) Appendicitis (Acute) MEGAN (acute kidney injury) (Acute) ruptured appendicitis - s/p OR 11/[address] Del Real. Surg cx with ecoli. MEGAN on CKD, now starting to improve. Cont zosyn q12h. Wbc normal now. No fever here. Repeat CT pending. Will follow, d/w Dr. Askew
[2019-11-27 11:46] LABS: Bedside Glucose 137 mg/dL (70-110)
--- NOTE | 2019-11-27 13:08 | PCM.PN.REN ---
Patient Problems: Active and Suspected Problems (Last Reviewed 11/23/19 @ 07:[address] Julio César Armijo MD) Appendicitis (Acute) MEGAN (acute kidney injury) (Acute) Subjective: No new complaints - Physical Exam Vitals/I&O's: Vital Signs Temp Pulse Resp BP Pulse Ox 98.7 F 98 20 H 143/67 H 94 11/27/19 09:18 11/27/19 09:25 11/27/19 09:18 11/27/19 09:25 11/27/19 09:18 Oxygen Flow Rate (L/min) 3 Oxygen Delivery Method Nasal Cannula Weight: 102.557 kg Body Mass Index (BMI) 37.9 Finger Stick Blood Glucose 124 Intake and Output for Last 24 Hours 11/25/19 11/26/19 11/27/19 23:59 23:59 23:59 Intake Total 1488.92 / 1688.92 1821.24 / 1821.24 1377.13 / 1377.13 Output Total 360 / 485 975 / 975 1900 / 1900 Balance 1128.92 / 1203.92 846.24 / 846.24 -522.87 / -522.87 General: Alert, Oriented x3, Cooperative HEENT: Atraumatic, PERRLA, EOMI, Normocephalic Neck: Supple, No JVD, Negative Carotid Bruits Lungs: Clear to auscultation, Normal air movement Cardiovascular: Regular rate, No murmurs Abdomen: Bowel Sounds Present, Soft, Non Tender Extremities: No edema, Capillary Refill Less than 3 Seconds Skin: No rashes, No breakdown Musculoskeletal: No Tenderness to Palpation of Joints or Extremities Neurological: Cranial nerves II-XII grossly intact Psych/Mental Status: Normal Affect, Appropriate Microbiology Past 72 Hours 11/26/19 17:00 Urine Catheter - Morales Streptococcus pneumoniae Antigen (M - Final 11/26/19 17:00 Urine Catheter - Morales Legionella Antigen - Final 11/23/19 13:16 Incision/Surgical Site Gram Stain - Final 11/23/19 13:16 Incision/Surgical Site Wound Culture - Final Escherichia coli 11/23/19 13:16 Incision/Surgical Site Anaerobic Culture - Preliminary Checking for anaerobes, further studies to follow. Laboratory Results 11/26/19 13:35: APTT 42.8 H 11/26/19 17:00: Eos Smear Total Cells Pending 11/26/19 17:00: Urine Color Yellow, Urine Clarity Clear, Urine pH 6.5, Ur Specific [place] 1.005, Urine Protein 30 H, Urine Glucose (UA) Normal, Urine Ketones Negative, Urine Occult Blood 250 H, Urine Nitrite Negative, Urine Bilirubin Negative, Urine Urobilinogen Normal, Ur Leukocyte Esterase 25 H, Urine RBC 5-10 SEEN, Urine WBC 0 SEEN, Ur Squamous Epith Cells 0 SEEN, Urine Bacteria 0 SEEN, Urine Mucus 0 SEEN 11/26/19 17:41: POC Glucose 135 H 11/26/19 20:40: APTT 105.1 H* 11/26/19 23:35: POC Glucose 137 H 11/27/19 03:40: WBC 9.6, RBC 3.16 L, Hgb 9.5 L, Hct 28.9 L, MCV 91.5, MCH 30.1, MCHC 32.9, RDW Std Deviation 46.9 H, RDW Coeff of Ashley 14.1, Plt Count 217, MPV 11.2, Immature Gran % (Auto) 0.400, Neut % (Auto) 72.6 H, Lymph % (Auto) 10.3 L, [place] % (Auto) 12.8 H, Eos % (Auto) 3.5, Baso % (Auto) 0.4, Absolute Neuts (auto) 7.0, Absolute Lymphs (auto) 0.99, Nucleated RBC % 0 11/27/19 03:40: Sodium 134 L, Potassium 4.6, Chloride 104, Carbon Dioxide 19.0 L, Anion Gap 11, BUN 55 H, Creatinine 4.15 H, Estim Creat Clear Calc 8.55, Est GFR (MDRD) Af Amer 13 L, Est GFR (MDRD) Non-Af 11 L, BUN/Creatinine Ratio 13.3, Glucose 111 H, Calcium 7.8 L 11/27/19 03:40: APTT 78.2 H 11/27/19 05:53: POC Glucose 120 H 11/27/19 09:28: APTT 73.6 H 11/27/19 11:39: POC Glucose 137 H Current Medications Acetaminophen (Tylenol) 650 mg PO Q6H PRN PRN PRN Reason: Pain Score 1-10 Last Admin: 11/26/19 17:37 Dose: 650 mg Documented by: Albuterol Sulfate (Ventolin Aerosols) 2.5 mg INHALATION Q2H PRN PRN PRN Reason: WHEEZING Last Admin: 11/24/19 23:43 Dose: 2.5 mg Documented by: Albuterol/Ipratropium (Duoneb) 3 ml INHALATION Q4HWA.RT [facility] Last Admin: 11/27/19 10:24 Dose: 3 ml Documented by: Allopurinol (Zyloprim) 300 mg PO DAILY@0800 [facility] Last Admin: 11/27/19 09:25 Dose: 300 mg Documented by: Amlodipine Besylate (Norvasc) 10 mg PO DAILY [facility] Last Admin: 11/27/19 09:25 Dose: 10 mg Documented by: Dextrose (D50w Syringe) 0 gm IV X1 PRN; Protocol PRN Reason: Hypoglycemia Flecainide Acetate (Tambocor) 100 mg PO BID [facility] Last Admin: 11/27/19 09:25 Dose: 100 mg Documented by: Fluticasone Propionate (Flonase Nasal [place]) 1 spray NASAL BID [facility] Last Admin: 11/27/19 09:25 Dose: 1 spray Documented by: Glucagon () 1 mg IM .X1 PRN PRN Reason: Hypoglycemia Hydralazine HCl (Apresoline Iv) 5 mg IV Q6H PRN PRN PRN Reason: SBP > 160 Sodium Chloride () 250 mls @ 15 mls/hr IV .[id number] PRN PRN Reason: Saline Flush Last Infusion: 11/27/19 09:52 Dose: 0 mls/hr Documented by: Piperacillin Sod/Tazobactam (Sod 3.375 gm/ Sodium Chloride) 50 mls @ 12.5 mls/hr IV Q12 [facility] Last Admin: 11/27/19 09:52 Dose: 12.5 mls/hr Documented by: Pantoprazole Sodium 40 mg/ (Sodium Chloride) 110 mls @ 330 mls/hr IV Q24 [facility] Last Infusion: 11/27/19 09:51 Dose: Infused Documented by: Insulin Human Lispro (Humalog Kwikpen (Bkc)) 0 unit SC Q6 [facility]; Protocol Last Admin: 11/27/19 12:06 Dose: Not Given Documented by: Levothyroxine Sodium (Synthroid) 175 mcg PO DAILY@0600 [facility] Last Admin: 11/27/19 05:54 Dose: 175 mcg Documented by: Metoprolol Succinate (Toprol Xl (Beta Trang)) 25 mg PO DAILY [facility] Last Admin: 11/27/19 09:25 Dose: 25 mg Documented by: Morphine Sulfate () 2 mg IV Q3H PRN PRN PRN Reason: Pain Score 6-10/10 Last Admin: 11/23/19 08:59 Dose: 2 mg Documented by: Nutritional Formula (Lactose Free) (Ensure Clear) 120 ml PO 4X/DAY [facility] Ondansetron HCl (Zofran) 4 mg IV Q8H PRN PRN PRN Reason: NAUSEA/VOMITING Last Admin: 11/27/19 09:31 Dose: 4 mg Documented by: Oxycodone HCl (Oxyir) 5 - 10 mg PO Q4H PRN PRN PRN Reason: Pain Score 6-10/10 Last Admin: 11/23/19 20:58 Dose: 10 mg Documented by: Pravastatin Sodium (Pravachol) 40 mg PO QHS [facility] Last Admin: 11/26/19 22:52 Dose: 40 mg Documented by: Sodium Chloride () 10 - 40 ml IV UD PRN PRN Reason: SALINE FLUSH Last Admin: 11/26/19 17:53 Dose: 10 ml Documented by: Sodium Chloride ([place] Nasal [place]) 2 spray NASAL TID PRN PRN PRN Reason: NASAL DRYNESS Last Admin: 11/26/19 22:51 Dose: 2 spray Documented by: Tamsulosin HCl (Flomax) 0.4 mg PO DAILY@1730 [facility] Last Admin: 11/26/19 17:37 Dose: 0.4 mg Documented by: Warfarin Sodium (Coumadin (Pbkc)) 4 mg PO DAILY@1700 [facility] Medical Necessity - Tobacco Use Smoking Status: Never smoker Assessment/Plan All Active Problems (Last Reviewed 11/23/19 @ 07:[address] Julio César Armijo MD) Appendicitis (Acute) MEGAN (acute kidney injury) (Acute) Garcia's palsy (Resolved) Acute renal failure kidney disease stage III She has known history of CKD stage III with baseline creatinine around 1.4-1.6. Now has acute renal failure. Initial CT abdomen did not show any hydronephrosis Urine analysis shows protein which is baseline she did have a CT abdomen with contrast on the . Most likely ATN Blood pressure is ok Urine output is significantly better. Creatinine is improved. Possible recovery. Should not need dialysis line anymore. Possible ileus. Repeat CT pending Proteinuria. Has about 1.3 g of protein at baseline. Usually on losartan, hold for now History of fluid retention. As per our office records, she is on Lasix and Aldactone. Plan Possible renal recovery. No plans for dialysis. DC heparin drip. Resume Coumadin as per hospitalist. .
[2019-11-27] MEDS: Ensure Clear 120 ML Liquid PO ×3 (14:06→22:52)
[2019-11-27] MEDS: Tamsulosin HCl 0.4 MG Capsule PO (16:52)
[2019-11-27] MEDS: Insulin Lispro 100 UNIT/ML INSULN.PEN SC ×2 (16:52→22:59)
[2019-11-27 17:15] LABS: Bedside Glucose 171 mg/dL (70-110)
[2019-11-27] MEDS: Bisacodyl 5 MG Tablet 10 MG PO (17:53)
[2019-11-27] MEDS: Pravastatin 40 MG Tablet PO (22:52)
[2019-11-27 23:25] LABS: Bedside Glucose 163 mg/dL (70-110)
[2019-11-28] VITALS (9 sets, daily range): BP systolic 115–145; BP diastolic 58–76; PULSE 76–117; RESP 16–20; TEMP 36.6–37.1; O2SAT 86–96
[2019-11-28] MEDS: Levothyroxine 175 MCG Tablet PO (05:20)
[2019-11-28 05:30] LABS: Bedside Glucose 132 mg/dL (70-110)
[2019-11-28 06:03] LABS: Absolute Lymphocyte Count 1.25 X10^3/uL (0.83-4.51); Basophil# 0.04 X10^3/uL; Basophil% 0.4 % (0-1); Eosinophil# 0.57 X10^3/uL; Eosinophils% 5.6 % (0-5); Hematocrit 29.4 % (37-47); Hemoglobin 9.3 g/dL (12.0-15.0); Lymphocyte # 1.25 X10^3/ul (4.0); Lymphocyte % 12.4 % (19-41); Mean Corp Hgb Conc 31.6 g/dL (32-36); Mean Corpuscular Volume 91.6 fL (81-99); Mean Platelet Vol. 11.1 fl (6.2-12.0); Monocyte# 1.27 X10^3/uL; Monocyte% 12.6 % (0-10); NRBC Flagged by Analyzer 0 % (0-5); Neutrophil # 6.95 X10^3/uL (2.7-7.7); Neutrophil % 68.8 % (47-70); Platelet Count 257 K/mm3 (150-450); RBC Distribution Width CV 14.1 % (11.6-14.6); RBC Distribution Width SD 47.6 fl (35.1-43.9); Red Blood Count 3.21 M/mm3 (4.2-5.4); White Blood Count 10.1 K/mm3 (4.4-11.0)
[2019-11-28 06:12] LABS: Prothrombin Time (Protime)PT. 30.9 SECONDS (11.7-14.9)
[2019-11-28 06:13] LABS: Partial Thromboplast Time 60.7 Seconds (24.1-36.2)
[2019-11-28 06:22] LABS: Anion Gap 9 (5-15); BUN 51 mg/dL (7-18); Calcium,Total 7.9 mg/dL (8.5-10.1); Chloride 105 mmol/L (98-107); Creatinine, Serum 3.65 mg/dL (0.55-1.02); EST Glomerular Filtration Rate 13 mL/min (>60); Est Glom Filt Rate - Afr Amer 15 mL/min (>60); Estimated Creatinine Clearance 9.72 ml/min; Glucose 136 mg/dL (74-106); Potassium 4.2 mmol/L (3.5-5.1); Sodium Level 135 mmol/L (136-145)
[2019-11-28] MEDS: Ipratropium/Albuterol Sulfate 3 ML AMPUL.NEB INHALATION ×2 (06:54→19:45)
--- NOTE | 2019-11-28 07:34 | PN.SURG_ITS ---
Patient Problems: Active and Suspected Problems (Last Reviewed 11/23/19 @ 07:[address] Julio César Armijo MD) Appendicitis (Acute) MEGAN (acute kidney injury) (Acute) Subjective: Patient states she has tolerating clears without nausea, minimal bowel movement denies flatus, CT abdomen pelvis did not show any obvious abscess mostly postop changes contrast was in the colon. Patient's Morales was removed yesterday. - Physical Exam Vitals/I&O's: Vital Signs Temp Pulse Resp BP Pulse Ox 98.2 F 89 16 133/66 H 92 11/28/19 02:21 11/28/19 02:21 11/28/19 02:21 11/28/19 02:21 11/28/19 02:21 Oxygen Flow Rate (L/min) 2 Oxygen Delivery Method Nasal Cannula Weight: 221 lb 11.2 oz Body Mass Index (BMI) 37.9 Finger Stick Blood Glucose 124 Intake and Output for Last 24 Hours 11/26/19 11/27/19 11/28/19 23:59 23:59 23:59 Intake Total 1821.24 / 1821.24 2069.43 / 2069.43 630 / 630 Output Total 975 / 975 2250 / 2250 200 / 200 Balance 846.24 / 846.24 -180.57 / -180.57 430 / 430 General: Alert, Oriented x3, Cooperative, No apparent distress HEENT: Atraumatic Cardiovascular: Regular rate Abdomen: Soft, Distended - Mild, Tender - Mild lower abdomen, no peritoneal signs, incision clean dry and intact Microbiology Past 72 Hours 11/26/19 17:00 Urine Catheter - Morales Streptococcus pneumoniae Antigen (M - Final 11/26/19 17:00 Urine Catheter - Morales Legionella Antigen - Final 11/23/19 13:16 Incision/Surgical Site Gram Stain - Final 11/23/19 13:16 Incision/Surgical Site Wound Culture - Final Escherichia coli 11/23/19 13:16 Incision/Surgical Site Anaerobic Culture - Preliminary Checking for anaerobes, further studies to follow. Laboratory Results 11/27/19 09:28: APTT 73.6 H 11/27/19 11:39: POC Glucose 137 H 11/27/19 16:51: POC Glucose 171 H 11/27/19 22:58: POC Glucose 163 H 11/28/19 05:17: POC Glucose 132 H 11/28/19 05:22: WBC 10.1, RBC 3.21 L, Hgb 9.3 L, Hct 29.4 L, MCV 91.6, MCH 29.0, MCHC 31.6 L, RDW Std Deviation 47.6 H, RDW Coeff of [place] 14.1, Plt Count 257, MPV 11.1, Immature Gran % (Auto) 0.200, Neut % (Auto) 68.8, Lymph % (Auto) 12.4 L, [place] % (Auto) 12.6 H, Eos % (Auto) 5.6 H, Baso % (Auto) 0.4, Absolute Neuts (auto) 7.0, Absolute Lymphs (auto) 1.25, Nucleated RBC % 0 11/28/19 05:22: Sodium 135 L, Potassium 4.2, Chloride 105, Carbon Dioxide 21.0, Anion Gap 9, BUN 51 H, Creatinine 3.65 H, Estim Creat Clear Calc 9.72, Est GFR (MDRD) Af Amer 15 L, Est GFR (MDRD) Non-Af 13 L, BUN/Creatinine Ratio 14.0, Glucose 136 H, Calcium 7.9 L 11/28/19 05:22: PT 30.9 H, INR 3.0, APTT 60.7 H Current Medications Acetaminophen (Tylenol) 650 mg PO Q6H PRN PRN PRN Reason: Pain Score 1-10/10 Last Admin: 11/26/19 17:37 Dose: 650 mg Documented by: Albuterol Sulfate (Ventolin Aerosols) 2.5 mg INHALATION Q2H PRN PRN PRN Reason: WHEEZING Last Admin: 11/24/19 23:43 Dose: 2.5 mg Documented by: Albuterol/Ipratropium (Duoneb) 3 ml INHALATION Q4HWA.RT [facility] Last Admin: 11/28/19 06:54 Dose: 3 ml Documented by: Allopurinol (Zyloprim) 300 mg PO DAILY@0800 [facility] Last Admin: 11/27/19 09:25 Dose: 300 mg Documented by: Amlodipine Besylate (Norvasc) 10 mg PO DAILY [facility] Last Admin: 11/27/19 09:25 Dose: 10 mg Documented by: Dextrose (D50w Syringe) 0 gm IV X1 PRN; Protocol PRN Reason: Hypoglycemia Flecainide Acetate (Tambocor) 100 mg PO BID [facility] Last Admin: 11/27/19 22:52 Dose: 100 mg Documented by: Fluticasone Propionate (Flonase Nasal [place]) 1 spray NASAL BID [facility] Last Admin: 11/27/19 22:52 Dose: 1 spray Documented by: Glucagon () 1 mg IM .X1 PRN PRN Reason: Hypoglycemia Hydralazine HCl (Apresoline Iv) 5 mg IV Q6H PRN PRN PRN Reason: SBP > 160 Sodium Chloride () 250 mls @ 15 mls/hr IV .[id number] PRN PRN Reason: Saline Flush Last Infusion: 11/28/19 02:52 Dose: 15 mls/hr Documented by: Piperacillin Sod/Tazobactam (Sod 3.375 gm/ Sodium Chloride) 50 mls @ 12.5 mls/hr IV Q12 [facility] Last Infusion: 11/28/19 02:52 Dose: Infused Documented by: Pantoprazole Sodium 40 mg/ (Sodium Chloride) 110 mls @ 330 mls/hr IV Q24 [facility] Last Infusion: 11/27/19 09:51 Dose: Infused Documented by: Insulin Human Lispro (Humalog Kwikpen (Bkc)) 0 unit SC Q6 [facility]; Protocol Last Admin: 11/28/19 05:19 Dose: Not Given Documented by: Levothyroxine Sodium (Synthroid) 175 mcg PO DAILY@0600 [facility] Last Admin: 11/28/19 05:20 Dose: 175 mcg Documented by: Metoprolol Succinate (Toprol Xl (Beta Trang)) 25 mg PO DAILY [facility] Last Admin: 11/27/19 09:25 Dose: 25 mg Documented by: Morphine Sulfate () 2 mg IV Q3H PRN PRN PRN Reason: Pain Score 6-10/10 Last Admin: 11/23/19 08:59 Dose: 2 mg Documented by: Nutritional Formula (Lactose Free) (Ensure Clear) 120 ml PO 4X/DAY [facility] Last Admin: 11/27/19 22:52 Dose: 120 ml Documented by: Ondansetron HCl (Zofran) 4 mg IV Q8H PRN PRN PRN Reason: NAUSEA/VOMITING Last Admin: 11/27/19 09:31 Dose: 4 mg Documented by: Oxycodone HCl (Oxyir) 5 - 10 mg PO Q4H PRN PRN PRN Reason: Pain Score 6-10/10 Last Admin: 11/23/19 20:58 Dose: 10 mg Documented by: Pravastatin Sodium (Pravachol) 40 mg PO QHS [facility] Last Admin: 11/27/19 22:52 Dose: 40 mg Documented by: Sodium Chloride () 10 - 40 ml IV UD PRN PRN Reason: SALINE FLUSH Last Admin: 11/26/19 17:53 Dose: 10 ml Documented by: Sodium Chloride ([place] Nasal [place]) 2 spray NASAL TID PRN PRN PRN Reason: NASAL DRYNESS Last Admin: 11/26/19 22:51 Dose: 2 spray Documented by: Tamsulosin HCl (Flomax) 0.4 mg PO DAILY@1730 [facility] Last Admin: 11/27/19 16:52 Dose: 0.4 mg Documented by: Warfarin Sodium (Coumadin (Pbkc)) 4 mg PO DAILY@1700 [facility] Last Admin: 11/27/19 16:52 Dose: 4 mg Documented by: Medical Necessity - Tobacco Use Smoking Status: Never smoker Assessment/Plan All Active Problems (Last Reviewed 11/23/19 @ 07:[address] Julio César Armijo MD) Appendicitis (Acute) MEGAN (acute kidney injury) (Acute) Garcia's palsy (Resolved) 79 y/o F with acute appendicitis status post lap appendectomy postop day 5, on hep gtt previously coumadin for A fib, acute kidney injury on chronic kidney disease, postop ileus 1. Okay to continue sips, continue ambulation in halls, await bowel function, try Dulcolax suppository as well as p.o. 2. Continue Zosyn 3.375g IV q12 3. Nephrology consulted due to acute kidney injury likely due to contrast--Cr improving continue IV fluids Kiara Del Real M.D. Pager: [phone] [facility] [address] [place] [address], [address] [place] [id number] Office: [phone]
[2019-11-28] MEDS: Bisacodyl 5 MG Tablet 10 MG PO ×2 (08:44→14:42)
[2019-11-28] MEDS: Bisacodyl 10 MG Suppository RECTAL (08:45)
[2019-11-28] MEDS: Allopurinol 300 MG Tablet PO (08:45)
[2019-11-28] MEDS: Ensure Clear 120 ML Liquid PO ×3 (08:46→22:20)
[2019-11-28] MEDS: amLODIPine 10 MG Tablet PO (08:46)
[2019-11-28] MEDS: Fluticasone 0.05% 1 SPRAY NASAL.SRY NASAL ×2 (08:46→22:18)
[2019-11-28] MEDS: Metoprolol(XL)Succ 25 MG Tablet PO (08:47)
[2019-11-28] MEDS: Flecainide 100 MG Tablet PO ×2 (08:47→22:19)
--- NOTE | 2019-11-28 08:58 | PN_ITS ---
Patient Problems: Active and Suspected Problems (Last Reviewed 11/23/19 @ 07:[address] Julio César Armijo MD) Appendicitis (Acute) MEGAN (acute kidney injury) (Acute) Reason for Visit: Multiple active medical problems including perforated/ruptured appendix, acute kidney injury, JUAN and bilateral small pleural effusion. Vitals/I&O's: Vital Signs Temp Pulse Resp BP Pulse Ox 98.0 F 91 20 H 123/58 H 96 11/28/19 08:41 11/28/19 08:47 11/28/19 08:41 11/28/19 08:41 11/28/19 08:41 Oxygen Flow Rate (L/min) 2 Oxygen Delivery Method Nasal Cannula Weight: 221 lb 11.2 oz Body Mass Index (BMI) 37.9 Finger Stick Blood Glucose 124 Intake and Output for Last 24 Hours 11/26/19 11/27/19 11/28/19 23:59 23:59 23:59 Intake Total 1821.24 / 1821.24 2069.43 / 2069.43 630 / 630 Output Total 975 / 975 2250 / 2250 200 / 200 Balance 846.24 / 846.24 -180.57 / -180.57 430 / 430 General: Alert, Oriented x3, Cooperative HEENT: Atraumatic, PERRLA, EOMI, Normocephalic Neck: Supple, No JVD, Negative Carotid Bruits Lungs: Clear to auscultation, No rhonchi, No wheeze, No rales, Diminished - Diminished bilateral lung bases Cardiovascular: Regular rate, Regular Rhythm, Normal S1, Normal S2, No murmurs Abdomen: Bowel Sounds Present, Soft, Non Tender, Passing Flatus - Yesterday small., Hypoactive Bowel Sounds - High pitch sound gurgling fluid-filled bowel sounds., Distended Extremities: No edema, Capillary Refill Less than 3 Seconds, Edema Skin: No rashes, No breakdown Musculoskeletal: No Tenderness to Palpation of Joints or Extremities, Arthritic Changes Neurological: Cranial nerves II-XII grossly intact Psych/Mental Status: Normal Affect, Appropriate Microbiology Past 72 Hours 11/23/19 13:16 Incision/Surgical Site Gram Stain - Final 11/23/19 13:16 Incision/Surgical Site Wound Culture - Final Escherichia coli 11/23/19 13:16 Incision/Surgical Site Anaerobic Culture - Preliminary Checking for anaerobes, further studies to follow. 11/26/19 17:00 Urine Catheter - Morales Streptococcus pneumoniae Antigen (M - Final 11/26/19 17:00 Urine Catheter - Morales Legionella Antigen - Final Laboratory Results 11/27/19 09:28: APTT 73.6 H 11/27/19 11:39: POC Glucose 137 H 11/27/19 16:51: POC Glucose 171 H 11/27/19 22:58: POC Glucose 163 H 11/28/19 05:17: POC Glucose 132 H 11/28/19 05:22: WBC 10.1, RBC 3.21 L, Hgb 9.3 L, Hct 29.4 L, MCV 91.6, MCH 29.0, MCHC 31.6 L, RDW Std Deviation 47.6 H, RDW Coeff of [place] 14.1, Plt Count 257, MPV 11.1, Immature Gran % (Auto) 0.200, Neut % (Auto) 68.8, Lymph % (Auto) 12.4 L, [place] % (Auto) 12.6 H, Eos % (Auto) 5.6 H, Baso % (Auto) 0.4, Absolute Neuts (auto) 7.0, Absolute Lymphs (auto) 1.25, Nucleated RBC % 0 11/28/19 05:22: Sodium 135 L, Potassium 4.2, Chloride 105, Carbon Dioxide 21.0, Anion Gap 9, BUN 51 H, Creatinine 3.65 H, Estim Creat Clear Calc 9.72, Est GFR (MDRD) Af Amer 15 L, Est GFR (MDRD) Non-Af 13 L, BUN/Creatinine Ratio 14.0, Glucose 136 H, Calcium 7.9 L 11/28/19 05:22: PT 30.9 H, INR 3.0, APTT 60.7 H Current Medications Acetaminophen (Tylenol) 650 mg PO Q6H PRN PRN PRN Reason: Pain Score 1-10/10 Last Admin: 11/26/19 17:37 Dose: 650 mg Documented by: Albuterol Sulfate (Ventolin Aerosols) 2.5 mg INHALATION Q2H PRN PRN PRN Reason: WHEEZING Last Admin: 11/24/19 23:43 Dose: 2.5 mg Documented by: Albuterol/Ipratropium (Duoneb) 3 ml INHALATION Q4HWA.RT [facility] Last Admin: 11/28/19 06:54 Dose: 3 ml Documented by: Allopurinol (Zyloprim) 300 mg PO DAILY@0800 [facility] Last Admin: 11/28/19 08:45 Dose: 300 mg Documented by: Amlodipine Besylate (Norvasc) 10 mg PO DAILY [facility] Last Admin: 11/28/19 08:46 Dose: 10 mg Documented by: Dextrose (D50w Syringe) 0 gm IV X1 PRN; Protocol PRN Reason: Hypoglycemia Flecainide Acetate (Tambocor) 100 mg PO BID [facility] Last Admin: 11/28/19 08:47 Dose: 100 mg Documented by: Fluticasone Propionate (Flonase Nasal [place]) 1 spray NASAL BID [facility] Last Admin: 11/28/19 08:46 Dose: 1 spray Documented by: Glucagon () 1 mg IM .X1 PRN PRN Reason: Hypoglycemia Hydralazine HCl (Apresoline Iv) 5 mg IV Q6H PRN PRN PRN Reason: SBP > 160 Sodium Chloride () 250 mls @ 15 mls/hr IV .[id number] PRN PRN Reason: Saline Flush Last Infusion: 11/28/19 02:52 Dose: 15 mls/hr Documented by: Piperacillin Sod/Tazobactam (Sod 3.375 gm/ Sodium Chloride) 50 mls @ 12.5 mls/hr IV Q12 [facility] Last Infusion: 11/28/19 02:52 Dose: Infused Documented by: Pantoprazole Sodium 40 mg/ (Sodium Chloride) 110 mls @ 330 mls/hr IV Q24 [facility] Last Infusion: 11/27/19 09:51 Dose: Infused Documented by: Insulin Human Lispro (Humalog Kwikpen (Bkc)) 0 unit SC Q6 [facility]; Protocol Last Admin: 11/28/19 05:19 Dose: Not Given Documented by: Levothyroxine Sodium (Synthroid) 175 mcg PO DAILY@0600 [facility] Last Admin: 11/28/19 05:20 Dose: 175 mcg Documented by: Metoprolol Succinate (Toprol Xl (Beta Trang)) 25 mg PO DAILY [facility] Last Admin: 11/28/19 08:47 Dose: 25 mg Documented by: Morphine Sulfate () 2 mg IV Q3H PRN PRN PRN Reason: Pain Score 6-10/10 Last Admin: 11/23/19 08:59 Dose: 2 mg Documented by: Nutritional Formula (Lactose Free) (Ensure Clear) 120 ml PO 4X/DAY [facility] Last Admin: 11/28/19 08:46 Dose: 120 ml Documented by: Ondansetron HCl (Zofran) 4 mg IV Q8H PRN PRN PRN Reason: NAUSEA/VOMITING Last Admin: 11/27/19 09:31 Dose: 4 mg Documented by: Oxycodone HCl (Oxyir) 5 - 10 mg PO Q4H PRN PRN PRN Reason: Pain Score 6-10/10 Last Admin: 11/23/19 20:58 Dose: 10 mg Documented by: Pravastatin Sodium (Pravachol) 40 mg PO QHS [facility] Last Admin: 11/27/19 22:52 Dose: 40 mg Documented by: Sodium Chloride () 10 - 40 ml IV UD PRN PRN Reason: SALINE FLUSH Last Admin: 11/26/19 17:53 Dose: 10 ml Documented by: Sodium Chloride ([place] Nasal [place]) 2 spray NASAL TID PRN PRN PRN Reason: NASAL DRYNESS Last Admin: 11/26/19 22:51 Dose: 2 spray Documented by: Tamsulosin HCl (Flomax) 0.4 mg PO DAILY@1730 [facility] Last Admin: 11/27/19 16:52 Dose: 0.4 mg Documented by: STROKE Vital Signs/Narrative: Vital Signs Temp Pulse Resp BP Pulse Ox 11/28/19 08:47 91 11/28/19 08:41 98.0 F 91 20 H 123/58 H 96 11/28/19 08:35 86 11/28/19 06:54 117 H 19 H 94 Medical Necessity - Tobacco Use Smoking Status: Never smoker Assessment/Plan All Active Problems (Last Reviewed 11/23/19 @ 07:[address] Julio César Armijo MD) Appendicitis (Acute) MEGAN (acute kidney injury) (Acute) Garcia's palsy (Resolved) The patient is a 79 year old F with a significant for paroxysmal A. fib; permanent pacemaker; sick sinus syndrome who presents emergency department with excruciating right lower quadrant pain and abdomen and pelvis CT showing acute appendicitis. 1. Acute perforated appendicitis: Had laparoscopic appendectomy on 11/23/2019. On zosyn. Patient is afebrile but has high white count. 11/26: Leukocytosis improving. H&H is stable. KUB shows adynamic ileus. Patient remains n.p.o. Has not passed flatus. Discussed with surgeon. 11/27: Patient had bowel movement yesterday, small. Bowel sounds improved. Discussed with surgeon. CT abdomen with oral contrast ordered. CT scan abdomen pelvis discussed with surgeon. Shows mild gaseous distention of transverse colon. The contrast reaching up to the colon. No free fluid or abscess or free air seen. Surgical changes in the region of prior appendectomy. 11/28: Patient had oral and rectal Dulcolax, ordered by surgeon. Since patient will pass flatus. As per nursing staff, she had small bowel movement yesterday. Mild abdominal distention with hypoactive bowel sounds suggestive postoperative ileus 2. Acute respiratory distress/insufficiency with hypoxia: 11/26: Crepitations present on lung exam. Lasix 40 mg IV ordered. IV fluid discontinued. Chest x-ray with BNP ordered. Flonase ordered. Patient is on bronchodilator. Continue incentive spirometry and pep 11/27: Continue incentive spirometry and pep. Lower cuts of CT abdomen shows no pneumonic consolidation but bilateral pleural effusion. 11/28 continue same. Aggressive bronchopulmonary hygiene. Surgical site culture is showing E. coli, pansensitive. And had 6 days of IV Zosyn. Can narrow down antibiotic to ceftriaxone. 3. 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 O verall is suggestive of right ventricular failure, moderate pulmonary hypertension and HFpEF Echo in October 2018. Interpretation Summary Mild concentric left ventricular hypertrophy. The estimated ejection fraction is 75 %. Mildly dilated right ventricle. The left atrium is moderately enlarged. Mild-Moderate (1-2+) posteriorly directed mitral valve insufficiency. Mild (1+) tricuspid valve insufficiency. Right ventricular systolic pressure estimated to be 51 mmHg. Moderate pulmonary hypertension. Compared to echo report dated 03/10/2013, LV function has remained the same, but RVSP has now increased from 30 to 51 mm Hg. Pt now appears to be in atrial fibrillation. 11/26: Chest x-ray ordered. Chest x-ray is independently reviewed and shows a left CP angle obliteration possible subsegmental atelectasis or small pneumonic infiltrate. already on IV Zosyn. Urinary antigens ordered. Patient does not sputum. ID is consulted. E. coli UTI: On IV Zosyn. It is also for perforated appendicitis. 11/27: Discussed with ID. Okay with the antibiotic. 11/28 IV fluid has been discontinued. Patient is about positive about 5.8 L fluid balance. Having good diuresis 3. Acute on CKD stage IV with urine retention most probably JUAN/postoperative urine retention. Accounts Payables Clerk is been consulted. Will start Morales catheter for drainage. Patient creatinine jumped up from 1.69-2.52 most probably Intra-Op urine retention. 11/25: Patient had Morales catheter yesterday. Creatinine went up from 2.5-3.5. Seen by fan mail clerk. Most probably JUAN. On IV fluid normal saline 200 mils per hour. Titrate the flow of normal saline as per hydration status and fluid overload. IV contrast was given on 11/23 therefore more than 48 hours. 11/26: BUN/creatinine getting worse 55/4.29, estimated creatinine clearance less than 10 mL/min. Discussed with fan mail clerk. Monitor BUN/creatinine may require temporary dialysis. 11/27: BUN/creatinine seems plateau. Good urine output. Indication for dialysis is under consideration but I think probably she will not need it 11/28: Patient had good urine output about 1300 mL since morning and about 1000 mL yesterday. Discussed with fan mail clerk. No need for dialysis as kidney seems to be stabilizing with good urine output. : Creatinine improving. Morales catheter removed. 4. pAfib - Flecainide, metoprolol. Rate stable. Hold Coumadin. 11/25: Resume Coumadin 11/26 INR 1.7. Coumadin resumed. 11/28: INR 3.0. Coumadin discontinued 5. Dmt2 - SSI, on Lantus. On clear liquids 6. Hx SSS - has pacemaker 7. hypothyroid - synthroid 8. Hx Gout - allopurinol 9. [place] palsy - not on steroids. 10. HTN - elevated. home meds + prn hydralazine. DVT ppx: SCDs Total time of the visit including total time spent in counseling or coordination of care, (more than 50% of the total time, spent in obtaining medical information from nurses and other ancillary care providers), coordination of care with consultants review of labs and imaging is 30 minutes Microbiology Past 72 Hours 11/23/19 13:16 Incision/Surgical Site Gram Stain - Final 11/23/19 13:16 Incision/Surgical Site Wound Culture - Final Escherichia coli 11/23/19 13:16 Incision/Surgical Site Anaerobic Culture - Preliminary Checking for anaerobes, further studies to follow. 11/26/19 17:00 Urine Catheter - Morales Streptococcus pneumoniae Antigen (M - Final 11/26/19 17:00 Urine Catheter - Morales Legionella Antigen - Final Laboratory Results 11/27/19 09:28: APTT 73.6 H 11/27/19 11:39: POC Glucose 137 H 11/27/19 16:51: POC Glucose 171 H 11/27/19 22:58: POC Glucose 163 H 11/28/19 05:17: POC Glucose 132 H 11/28/19 05:22: WBC 10.1, RBC 3.21 L, Hgb 9.3 L, Hct 29.4 L, MCV 91.6, MCH 29.0, MCHC 31.6 L, RDW Std Deviation 47.6 H, RDW Coeff of Ashley 14.1, Plt Count 257, MPV 11.1, Immature Gran % (Auto) 0.200, Neut % (Auto) 68.8, Lymph % (Auto) 12.4 L, [place] % (Auto) 12.6 H, Eos % (Auto) 5.6 H, Baso % (Auto) 0.4, Absolute Neuts (auto) 7.0, Absolute Lymphs (auto) 1.25, Nucleated RBC % 0 11/28/19 05:22: Sodium 135 L, Potassium 4.2, Chloride 105, Carbon Dioxide 21.0, Anion Gap 9, BUN 51 H, Creatinine 3.65 H, Estim Creat Clear Calc 9.72, Est GFR (MDRD) Af Amer 15 L, Est GFR (MDRD) Non-Af 13 L, BUN/Creatinine Ratio 14.0, Glucose 136 H, Calcium 7.9 L 11/28/19 05:22: PT 30.9 H, INR 3.0, APTT 60.7 H Clinical Impression(s) from Imaging Studies Abdomen/Pelvis CT 11/22/19 21:26 IMPRESSION: Indeterminate study. Probable acute nonperforated appendicitis Recommend clinical correlation. Renal Ultrasound 11/24/19 10:31 IMPRESSION: Nonspecific increased echogenicity of the kidneys suggesting underlying medical renal disease no evidence of hydronephrosis possible 6 mm cyst right kidney. The ureteral jets are not seen. Recommend correlation with clinical findings laboratory values comparison studies demonstrate inflammatory changes in the right lower quadrant at the level of the cecum suspicious for appendicitis as described on the recent study. There is also an abnormal mass within the mesentery that measures 2.7 cm. Electronically Signed: Miriam Warner MD at 13:49 EST Tel , Service support , Chest X-Ray 11/24/19 16:34 IMPRESSION: Stable mild cardiomegaly Worsening left lower lobe retrocardiac opacity infiltrate and/or atelectasis Cardiac pacemaker Electronically Signed: Vincent Silvestre at 18:47 EST Tel , Service support , KUB X-Ray 11/24/19 16:50 IMPRESSION: Likely ileus with distended loops of bowel predominantly colon Electronically Signed: Vincent Silvestre at 18:50 EST Tel , Service support , Chest X-Ray 11/26/19 08:01 IMPRESSION: Left cardiac pacemaker is noted in place. Subsegmental atelectasis is also seen in the left lung base and a small left lung base pneumonic infiltrate cannot be excluded. Electronically Signed: Royce Martinez at 11:14 EST Tel , Service support , KUB X-Ray 11/26/19 08:09 IMPRESSION: Mild adynamic ileus.. Electronically Signed: Royce Martinez at 14:07 EST Tel , Service support , Abdomen CT 11/27/19 09:20 IMPRESSION: 1. There is mild gaseous distention of the transverse colon. Reidentification of multiple colonic diverticula. No bowel obstruction. No free air or free fluid. 2. There is surgical suture material in the region of the appendix consistent with a prior appendectomy. 3. Small cyst/hypodensity seen in the uncinate process of the head of the pancreas on image [id number] reidentified although not well viewed without intravenous contrast. The remaining aspects of the pancreas are grossly unremarkable. 4. Diffuse body wall edema has developed since the prior study. Intracardiac pacemaker leads noted. A small pericardial effusion is present. 5. Interval development of mild groundglass edema in the lung bases and small bilateral pleural effusions. Mild bibasilar atelectasis has also developed. Code Visit Inpatient E&M: 19290 Subs Hosp L3
--- NOTE | 2019-11-28 09:17 | NURSING ---
Walked in high and had Ducolax supp as ordered. 02 was off and spo2 was 86% while resting in a chair. This nurse reapplied oxygen at 2LNc and spo2 is 96-97%.
[2019-11-28] MEDS: Ceftriaxone 1 GM/50 ML BAG IV (11:54)
[2019-11-28] MEDS: Insulin Lispro 100 UNIT/ML INSULN.PEN SC (12:05)
[2019-11-28 12:36] LABS: Bedside Glucose 198 mg/dL (70-110)
--- NOTE | 2019-11-28 14:28 | PN.RENAL_ITS ---
Patient Problems: Active and Suspected Problems (Last Reviewed 11/23/19 @ 07:[address] Julio César Armijo MD) Appendicitis (Acute) MEGAN (acute kidney injury) (Acute) Subjective: no new events - Physical Exam Vitals/I&O's: Vital Signs Temp Pulse Resp BP Pulse Ox 98.0 F 91 20 H 123/58 H 96 11/28/19 08:41 11/28/19 08:47 11/28/19 08:41 11/28/19 08:41 11/28/19 08:41 Oxygen Flow Rate (L/min) 1.5 Oxygen Delivery Method Nasal Cannula Weight: 100.561 kg Body Mass Index (BMI) 37.9 Finger Stick Blood Glucose 124 Intake and Output for Last 24 Hours 11/26/19 11/27/19 11/28/19 23:59 23:59 23:59 Intake Total 1821.24 / 1821.24 2069.43 / 2069.43 876.42 / 876.42 Output Total 975 / 975 2250 / 2250 200 / 200 Balance 846.24 / 846.24 -180.57 / -180.57 676.42 / 676.42 General: Alert, Oriented x3, Cooperative HEENT: Atraumatic, PERRLA, EOMI, Normocephalic Neck: Supple, No JVD, Negative Carotid Bruits Lungs: Clear to auscultation, Normal air movement Cardiovascular: Regular rate, No murmurs Abdomen: Bowel Sounds Present, Soft, Non Tender Extremities: No edema, Capillary Refill Less than 3 Seconds Skin: No rashes, No breakdown Musculoskeletal: No Tenderness to Palpation of Joints or Extremities Neurological: Cranial nerves II-XII grossly intact Psych/Mental Status: Normal Affect, Appropriate Microbiology Past 72 Hours 11/23/19 13:16 Incision/Surgical Site Gram Stain - Final 11/23/19 13:16 Incision/Surgical Site Wound Culture - Final Escherichia coli 11/23/19 13:16 Incision/Surgical Site Anaerobic Culture - Preliminary Checking for anaerobes, further studies to follow. 11/26/19 17:00 Urine Catheter - Morales Streptococcus pneumoniae Antigen (M - Final 11/26/19 17:00 Urine Catheter - Morales Legionella Antigen - Final Laboratory Results 11/27/19 16:51: POC Glucose 171 H 11/27/19 22:58: POC Glucose 163 H 11/28/19 05:17: POC Glucose 132 H 11/28/19 05:22: WBC 10.1, RBC 3.21 L, Hgb 9.3 L, Hct 29.4 L, MCV 91.6, MCH 29.0, MCHC 31.6 L, RDW Std Deviation 47.6 H, RDW Coeff of [place] 14.1, Plt Count 257, MPV 11.1, Immature Gran % (Auto) 0.200, Neut % (Auto) 68.8, Lymph % (Auto) 12.4 L, [place] % (Auto) 12.6 H, Eos % (Auto) 5.6 H, Baso % (Auto) 0.4, Absolute Neuts (auto) 7.0, Absolute Lymphs (auto) 1.25, Nucleated RBC % 0 11/28/19 05:22: Sodium 135 L, Potassium 4.2, Chloride 105, Carbon Dioxide 21.0, Anion Gap 9, BUN 51 H, Creatinine 3.65 H, Estim Creat Clear Calc 9.72, Est GFR (MDRD) Af Amer 15 L, Est GFR (MDRD) Non-Af 13 L, BUN/Creatinine Ratio 14.0, Glucose 136 H, Calcium 7.9 L 11/28/19 05:22: PT 30.9 H, INR 3.0, APTT 60.7 H 11/28/19 12:00: POC Glucose 198 H Current Medications Acetaminophen (Tylenol) 650 mg PO Q6H PRN PRN PRN Reason: Pain Score 1-10/10 Last Admin: 11/26/19 17:37 Dose: 650 mg Documented by: Albuterol Sulfate (Ventolin Aerosols) 2.5 mg INHALATION Q2H PRN PRN PRN Reason: WHEEZING Last Admin: 11/24/19 23:43 Dose: 2.5 mg Documented by: Albuterol/Ipratropium (Duoneb) 3 ml INHALATION Q4HWA.RT [facility] Last Admin: 11/28/19 14:20 Dose: Not Given Documented by: Allopurinol (Zyloprim) 300 mg PO DAILY@0800 [facility] Last Admin: 11/28/19 08:45 Dose: 300 mg Documented by: Amlodipine Besylate (Norvasc) 10 mg PO DAILY [facility] Last Admin: 11/28/19 08:46 Dose: 10 mg Documented by: Dextrose (D50w Syringe) 0 gm IV X1 PRN; Protocol PRN Reason: Hypoglycemia Flecainide Acetate (Tambocor) 100 mg PO BID [facility] Last Admin: 11/28/19 08:47 Dose: 100 mg Documented by: Fluticasone Propionate (Flonase Nasal [place]) 1 spray NASAL BID [facility] Last Admin: 11/28/19 08:46 Dose: 1 spray Documented by: Glucagon () 1 mg IM .X1 PRN PRN Reason: Hypoglycemia Hydralazine HCl (Apresoline Iv) 5 mg IV Q6H PRN PRN PRN Reason: SBP > 160 Sodium Chloride () 250 mls @ 15 mls/hr IV .[id number] PRN PRN Reason: Saline Flush Last Infusion: 11/28/19 11:57 Dose: 0 mls/hr Documented by: Pantoprazole Sodium 40 mg/ (Sodium Chloride) 110 mls @ 330 mls/hr IV Q24 [facility] Last Infusion: 11/28/19 09:16 Dose: Infused Documented by: Insulin Human Lispro (Humalog Kwikpen (Bkc)) 0 unit SC Q6 [facility]; Protocol Last Admin: 11/28/19 12:05 Dose: 1 u Documented by: Levothyroxine Sodium (Synthroid) 175 mcg PO DAILY@0600 [facility] Last Admin: 11/28/19 05:20 Dose: 175 mcg Documented by: Metoprolol Succinate (Toprol Xl (Beta Trang)) 25 mg PO DAILY [facility] Last Admin: 11/28/19 08:47 Dose: 25 mg Documented by: Morphine Sulfate () 2 mg IV Q3H PRN PRN PRN Reason: Pain Score 6-10/10 Last Admin: 11/23/19 08:59 Dose: 2 mg Documented by: Nutritional Formula (Lactose Free) (Ensure Clear) 120 ml PO 4X/DAY [facility] Last Admin: 11/28/19 08:46 Dose: 120 ml Documented by: Ondansetron HCl (Zofran) 4 mg IV Q8H PRN PRN PRN Reason: NAUSEA/VOMITING Last Admin: 11/27/19 09:31 Dose: 4 mg Documented by: Oxycodone HCl (Oxyir) 5 - 10 mg PO Q4H PRN PRN PRN Reason: Pain Score 6-10/10 Last Admin: 11/23/19 20:58 Dose: 10 mg Documented by: Pravastatin Sodium (Pravachol) 40 mg PO QHS [facility] Last Admin: 11/27/19 22:52 Dose: 40 mg Documented by: Sodium Chloride () 10 - 40 ml IV UD PRN PRN Reason: SALINE FLUSH Last Admin: 11/26/19 17:53 Dose: 10 ml Documented by: Sodium Chloride ([place] Nasal [place]) 2 spray NASAL TID PRN PRN PRN Reason: NASAL DRYNESS Last Admin: 11/26/19 22:51 Dose: 2 spray Documented by: Tamsulosin HCl (Flomax) 0.4 mg PO DAILY@1730 [facility] Last Admin: 11/27/19 16:52 Dose: 0.4 mg Documented by: Medical Necessity - Tobacco Use Smoking Status: Never smoker Assessment/Plan All Active Problems (Last Reviewed 11/23/19 @ 07:[address] Julio César Armijo MD) Appendicitis (Acute) MEGAN (acute kidney injury) (Acute) Garcia's palsy (Resolved) Acute renal failure kidney disease stage III She has known history of CKD stage III with baseline creatinine around 1.4-1.6. Now has acute renal failure. Initial CT abdomen did not show any hydronephrosis Urine analysis shows protein which is baseline she did have a CT abdomen with contrast on the . Most likely ATN Blood pressure is ok Urine output is significantly better. Creatinine is improved. Possible recovery. Possible ileus. Repeat CT reviewed. Proteinuria. Has about 1.3 g of protein at baseline. Usually on losartan, hold for now History of fluid retention. As per our office records, she is on Lasix and Aldactone. currently on hold. CT shows wall edema. will resume lasix once creatinine is back to baseline .
--- NOTE | 2019-11-28 16:04 | PCM.PN.ID ---
Patient Problems: Active and Suspected Problems (Last Reviewed 11/23/19 @ 07:[address] Julio César Armijo MD) Appendicitis (Acute) MEGAN (acute kidney injury) (Acute) Subjective: Feeling better, had small BM, passing gas. Abd less sore/distended. No fever. - Physical Exam Vitals/I&O's: Vital Signs Temp Pulse Resp BP Pulse Ox 97.9 F 100 18 115/70 92 11/28/19 14:52 11/28/19 14:52 11/28/19 14:52 11/28/19 14:52 11/28/19 14:52 Oxygen Flow Rate (L/min) 1.5 Oxygen Delivery Method Room Air Weight: 100.561 kg Body Mass Index (BMI) 37.9 Finger Stick Blood Glucose 124 Intake and Output for Last 24 Hours 11/26/19 11/27/19 11/28/19 23:59 23:59 23:59 Intake Total 1821.24 / 1821.24 2069.43 / 2069.43 1676.42 / 1676.42 Output Total 975 / 975 2250 / 2250 200 / 200 Balance 846.24 / 846.24 -180.57 / -180.57 1476.42 / 1476.42 General: Alert, Cooperative, No apparent distress Lungs: Clear to auscultation, Normal air movement Cardiovascular: Regular rate, Regular Rhythm Abdomen: Soft, Non Tender, Distended Skin: No rashes Microbiology Past 72 Hours 11/23/19 13:16 Incision/Surgical Site Gram Stain - Final 11/23/19 13:16 Incision/Surgical Site Wound Culture - Final Escherichia coli 11/23/19 13:16 Incision/Surgical Site Anaerobic Culture - Preliminary Checking for anaerobes, further studies to follow. 11/26/19 17:00 Urine Catheter - Morales Streptococcus pneumoniae Antigen (M - Final 11/26/19 17:00 Urine Catheter - Morales Legionella Antigen - Final Laboratory Results 11/27/19 16:51: POC Glucose 171 H 11/27/19 22:58: POC Glucose 163 H 11/28/19 05:17: POC Glucose 132 H 11/28/19 05:22: WBC 10.1, RBC 3.21 L, Hgb 9.3 L, Hct 29.4 L, MCV 91.6, MCH 29.0, MCHC 31.6 L, RDW Std Deviation 47.6 H, RDW Coeff of Ashley 14.1, Plt Count 257, MPV 11.1, Immature Gran % (Auto) 0.200, Neut % (Auto) 68.8, Lymph % (Auto) 12.4 L, [place] % (Auto) 12.6 H, Eos % (Auto) 5.6 H, Baso % (Auto) 0.4, Absolute Neuts (auto) 7.0, Absolute Lymphs (auto) 1.25, Nucleated RBC % 0 11/28/19 05:22: Sodium 135 L, Potassium 4.2, Chloride 105, Carbon Dioxide 21.0, Anion Gap 9, BUN 51 H, Creatinine 3.65 H, Estim Creat Clear Calc 9.72, Est GFR (MDRD) Af Amer 15 L, Est GFR (MDRD) Non-Af 13 L, BUN/Creatinine Ratio 14.0, Glucose 136 H, Calcium 7.9 L 11/28/19 05:22: PT 30.9 H, INR 3.0, APTT 60.7 H 11/28/19 12:00: POC Glucose 198 H Current Medications Acetaminophen (Tylenol) 650 mg PO Q6H PRN PRN PRN Reason: Pain Score 1-10/10 Last Admin: 11/26/19 17:37 Dose: 650 mg Documented by: Albuterol Sulfate (Ventolin Aerosols) 2.5 mg INHALATION Q2H PRN PRN PRN Reason: WHEEZING Last Admin: 11/24/19 23:43 Dose: 2.5 mg Documented by: Albuterol/Ipratropium (Duoneb) 3 ml INHALATION Q4HWA.RT [facility] Last Admin: 11/28/19 14:20 Dose: Not Given Documented by: Allopurinol (Zyloprim) 300 mg PO DAILY@0800 [facility] Last Admin: 11/28/19 08:45 Dose: 300 mg Documented by: Amlodipine Besylate (Norvasc) 10 mg PO DAILY [facility] Last Admin: 11/28/19 08:46 Dose: 10 mg Documented by: Dextrose (D50w Syringe) 0 gm IV X1 PRN; Protocol PRN Reason: Hypoglycemia Flecainide Acetate (Tambocor) 100 mg PO BID [facility] Last Admin: 11/28/19 08:47 Dose: 100 mg Documented by: Fluticasone Propionate (Flonase Nasal [place]) 1 spray NASAL BID [facility] Last Admin: 11/28/19 08:46 Dose: 1 spray Documented by: Glucagon () 1 mg IM .X1 PRN PRN Reason: Hypoglycemia Hydralazine HCl (Apresoline Iv) 5 mg IV Q6H PRN PRN PRN Reason: SBP > 160 Sodium Chloride () 250 mls @ 15 mls/hr IV .[id number] PRN PRN Reason: Saline Flush Last Infusion: 11/28/19 11:57 Dose: 0 mls/hr Documented by: Pantoprazole Sodium 40 mg/ (Sodium Chloride) 110 mls @ 330 mls/hr IV Q24 [facility] Last Infusion: 11/28/19 09:16 Dose: Infused Documented by: Insulin Human Lispro (Humalog Kwikpen (Bkc)) 0 unit SC Q6 [facility]; Protocol Last Admin: 11/28/19 12:05 Dose: 1 u Documented by: Levothyroxine Sodium (Synthroid) 175 mcg PO DAILY@0600 [facility] Last Admin: 11/28/19 05:20 Dose: 175 mcg Documented by: Metoprolol Succinate (Toprol Xl (Beta Trang)) 25 mg PO DAILY [facility] Last Admin: 11/28/19 08:47 Dose: 25 mg Documented by: Morphine Sulfate () 2 mg IV Q3H PRN PRN PRN Reason: Pain Score 6-10/10 Last Admin: 11/23/19 08:59 Dose: 2 mg Documented by: Nutritional Formula (Lactose Free) (Ensure Clear) 120 ml PO 4X/DAY [facility] Last Admin: 11/28/19 14:38 Dose: 120 ml Documented by: Ondansetron HCl (Zofran) 4 mg IV Q8H PRN PRN PRN Reason: NAUSEA/VOMITING Last Admin: 11/27/19 09:31 Dose: 4 mg Documented by: Oxycodone HCl (Oxyir) 5 - 10 mg PO Q4H PRN PRN PRN Reason: Pain Score 6-10/10 Last Admin: 11/23/19 20:58 Dose: 10 mg Documented by: Pravastatin Sodium (Pravachol) 40 mg PO QHS [facility] Last Admin: 11/27/19 22:52 Dose: 40 mg Documented by: Sodium Chloride () 10 - 40 ml IV UD PRN PRN Reason: SALINE FLUSH Last Admin: 11/26/19 17:53 Dose: 10 ml Documented by: Sodium Chloride ([place] Nasal [place]) 2 spray NASAL TID PRN PRN PRN Reason: NASAL DRYNESS Last Admin: 11/26/19 22:51 Dose: 2 spray Documented by: Tamsulosin HCl (Flomax) 0.4 mg PO DAILY@1730 [facility] Last Admin: 11/27/19 16:52 Dose: 0.4 mg Documented by: Medical Necessity - Tobacco Use Smoking Status: Never smoker Route of nutrition/ use of supplements: [] Nutritional Intake: [] IV Site: [] Morales Catheter: [] - Assessment/Plan Antibiotics: [] Assessment/Plan: [] Active and Suspected Problems (Last Reviewed 11/23/19 @ 07:[address] Julio César Armijo MD) Appendicitis (Acute) MEGAN (acute kidney injury) (Acute) ruptured appendicitis - s/p OR 11/[address] Del Real. Surg cx with ecoli. MEGAN on CKD, now starting to improve. Had been on zosyn q12h. Wbc normal now. No fever here. Repeat CT showed no residual infection. Got dose of ceftriaxone today, will stop abx. Will follow, d/w Dr. Askew
[2019-11-28 16:08] LABS: Eosinophil Ct. Urine No Eosinophils Seen % (.)
[2019-11-28 16:46] LABS: Bedside Glucose 118 mg/dL (70-110)
[2019-11-28] MEDS: Tamsulosin HCl 0.4 MG Capsule PO (19:07)
[2019-11-28] MEDS: Pravastatin 40 MG Tablet PO (22:19)
[2019-11-29] VITALS (14 sets, daily range): BP systolic 125–156; BP diastolic 55–73; PULSE 70–108; RESP 18–20; TEMP 36.7–36.9; O2SAT 92–96
[2019-11-29] MEDS: Insulin Lispro 100 UNIT/ML INSULN.PEN SC ×4 (00:17→21:34)
[2019-11-29 00:25] LABS: Bedside Glucose 151 mg/dL (70-110)
[2019-11-29] MEDS: Ipratropium/Albuterol Sulfate 3 ML AMPUL.NEB INHALATION ×6 (00:28→23:34)
[2019-11-29] MEDS: Levothyroxine 175 MCG Tablet PO (06:02)
--- NOTE | 2019-11-29 06:32 | PCM.PN.SRG ---
Patient Problems: Active and Suspected Problems (Last Reviewed 11/23/19 @ 07:[address] Julio César Armijo MD) Appendicitis (Acute) MEGAN (acute kidney injury) (Acute) Subjective: Patient is not complaining of any abdominal pain. She has had bowel movements. Objective: Patient's abdomen is soft and obese - Physical Exam Vitals/I&O's: Vital Signs Temp Pulse Resp BP Pulse Ox 98.5 F 82 18 125/73 H 95 11/29/19 04:03 11/29/19 04:03 11/29/19 04:17 11/29/19 04:03 11/29/19 04:17 Oxygen Flow Rate (L/min) 2 Oxygen Delivery Method Nasal Cannula Weight: 220 lb 3.869 oz Body Mass Index (BMI) 37.9 Finger Stick Blood Glucose 124 Intake and Output for Last 24 Hours 11/27/19 11/28/19 11/29/19 23:59 23:59 23:59 Intake Total 2069.43 / 2069.43 2036.42 / 2386.42 400 / 400 Output Total 2250 / 2250 600 / 700 400 / 400 Balance -180.57 / -180.57 1436.42 / 1686.42 0 / 0 Microbiology Past 72 Hours 11/23/19 13:16 Incision/Surgical Site Gram Stain - Final 11/23/19 13:16 Incision/Surgical Site Wound Culture - Final Escherichia coli 11/23/19 13:16 Incision/Surgical Site Anaerobic Culture - Preliminary Checking for anaerobes, further studies to follow. 11/26/19 17:00 Urine Catheter - Morales Streptococcus pneumoniae Antigen (M - Final 11/26/19 17:00 Urine Catheter - Morales Legionella Antigen - Final Laboratory Results 11/26/19 17:00: Eos Smear Total Cells No Eosinophils Seen 11/28/19 12:00: POC Glucose 198 H 11/28/19 16:35: POC Glucose 118 H 11/29/19 00:15: POC Glucose 151 H Current Medications Acetaminophen (Tylenol) 650 mg PO Q6H PRN PRN PRN Reason: Pain Score 1-10/10 Last Admin: 11/26/19 17:37 Dose: 650 mg Documented by: Albuterol Sulfate (Ventolin Aerosols) 2.5 mg INHALATION Q2H PRN PRN PRN Reason: WHEEZING Last Admin: 11/24/19 23:43 Dose: 2.5 mg Documented by: Albuterol/Ipratropium (Duoneb) 3 ml INHALATION Q4HWA.RT [facility] Last Admin: 11/29/19 00:28 Dose: 3 ml Documented by: Allopurinol (Zyloprim) 300 mg PO DAILY@0800 [facility] Last Admin: 11/28/19 08:45 Dose: 300 mg Documented by: Amlodipine Besylate (Norvasc) 10 mg PO DAILY [facility] Last Admin: 11/28/19 08:46 Dose: 10 mg Documented by: Dextrose (D50w Syringe) 0 gm IV X1 PRN; Protocol PRN Reason: Hypoglycemia Flecainide Acetate (Tambocor) 100 mg PO BID [facility] Last Admin: 11/28/19 22:19 Dose: 100 mg Documented by: Fluticasone Propionate (Flonase Nasal [place]) 1 spray NASAL BID [facility] Last Admin: 11/28/19 22:18 Dose: 1 spray Documented by: Glucagon () 1 mg IM .X1 PRN PRN Reason: Hypoglycemia Hydralazine HCl (Apresoline Iv) 5 mg IV Q6H PRN PRN PRN Reason: SBP > 160 Sodium Chloride () 250 mls @ 15 mls/hr IV .[id number] PRN PRN Reason: Saline Flush Last Infusion: 11/28/19 11:57 Dose: 0 mls/hr Documented by: Pantoprazole Sodium 40 mg/ (Sodium Chloride) 110 mls @ 330 mls/hr IV Q24 [facility] Last Infusion: 11/28/19 09:16 Dose: Infused Documented by: Insulin Human Lispro (Humalog [place] (Bkc)) 0 unit SC Q6 [facility]; Protocol Last Admin: 11/29/19 06:05 Dose: Not Given Documented by: Levothyroxine Sodium (Synthroid) 175 mcg PO DAILY@0600 [facility] Last Admin: 11/29/19 06:02 Dose: 175 mcg Documented by: Metoprolol Succinate (Toprol Xl (Beta Trang)) 25 mg PO DAILY [facility] Last Admin: 11/28/19 08:47 Dose: 25 mg Documented by: Morphine Sulfate () 2 mg IV Q3H PRN PRN PRN Reason: Pain Score 6-10/10 Last Admin: 11/23/19 08:59 Dose: 2 mg Documented by: Nutritional Formula (Lactose Free) (Ensure Clear) 120 ml PO 4X/DAY [facility] Last Admin: 11/28/19 22:20 Dose: 120 ml Documented by: Ondansetron HCl (Zofran) 4 mg IV Q8H PRN PRN PRN Reason: NAUSEA/VOMITING Last Admin: 11/27/19 09:31 Dose: 4 mg Documented by: Oxycodone HCl (Oxyir) 5 - 10 mg PO Q4H PRN PRN PRN Reason: Pain Score 6-10/10 Last Admin: 11/23/19 20:58 Dose: 10 mg Documented by: Pravastatin Sodium (Pravachol) 40 mg PO QHS [facility] Last Admin: 11/28/19 22:19 Dose: 40 mg Documented by: Sodium Chloride () 10 - 40 ml IV UD PRN PRN Reason: SALINE FLUSH Last Admin: 11/26/19 17:53 Dose: 10 ml Documented by: Sodium Chloride ([place] Nasal [place]) 2 spray NASAL TID PRN PRN PRN Reason: NASAL DRYNESS Last Admin: 11/26/19 22:51 Dose: 2 spray Documented by: Tamsulosin HCl (Flomax) 0.4 mg PO DAILY@1730 [facility] Last Admin: 11/28/19 19:07 Dose: 0.4 mg Documented by: Medical Necessity - Tobacco Use Smoking Status: Never smoker Assessment/Plan All Active Problems (Last Reviewed 11/23/19 @ 07:[address] Julio César Armijo MD) Appendicitis (Acute) MEGAN (acute kidney injury) (Acute) Garcia's palsy (Resolved) Improved from a surgical standpoint. Discharge per infectious disease and the hospitalist. Patient will follow-up with Dr. Tavares in 1 week
[2019-11-29 06:51] LABS: Bedside Glucose 144 mg/dL (70-110)
[2019-11-29 10:25] LABS: Absolute Neutrophil Count 6.9 X10^3/uL (2.0-7.7); Basophil# 0.04 X10^3/uL; Basophil% 0.4 % (0-1); Eosinophil# 0.44 X10^3/uL; Eosinophils% 4.8 % (0-5); Hematocrit 29.7 % (37-47); Hemoglobin 9.4 g/dL (12.0-15.0); Mean Corp Hgb Conc 31.6 g/dL (32-36); Mean Corpuscular Hgb 29.2 pg (27.0-32.0); Mean Corpuscular Volume 92.2 fL (81-99); Mean Platelet Vol. 10.9 fl (6.2-12.0); Monocyte# 0.69 X10^3/uL; Monocyte% 7.6 % (0-10); NRBC Flagged by Analyzer 0 % (0-5); Neutrophil % 75.9 % (47-70); Platelet Count 261 K/mm3 (150-450); RBC Distribution Width CV 14.3 % (11.6-14.6); Red Blood Count 3.22 M/mm3 (4.2-5.4); White Blood Count 9.1 K/mm3 (4.4-11.0)
[2019-11-29 10:48] LABS: Anion Gap 7 (5-15); BUN 44 mg/dL (7-18); BUN/Creat Ratio 16.4 RATIO (10-20); Chloride 107 mmol/L (98-107); Creatinine, Serum 2.68 mg/dL (0.55-1.02); EST Glomerular Filtration Rate 18 mL/min (>60); Est Glom Filt Rate - Afr Amer 22 mL/min (>60); Estimated Creatinine Clearance 13.24 ml/min; Glucose 199 mg/dL (74-106); Potassium 4.2 mmol/L (3.5-5.1); Sodium Level 134 mmol/L (136-145)
[2019-11-29] MEDS: Fluticasone 0.05% 1 SPRAY NASAL.SRY NASAL ×2 (11:01→21:33)
[2019-11-29] MEDS: Metoprolol(XL)Succ 25 MG Tablet PO (11:01)
[2019-11-29] MEDS: Allopurinol 300 MG Tablet PO (11:01)
[2019-11-29] MEDS: amLODIPine 10 MG Tablet PO (11:01)
[2019-11-29] MEDS: Flecainide 100 MG Tablet PO ×2 (11:02→21:34)
[2019-11-29] MEDS: Ensure Clear 120 ML Liquid PO ×4 (11:02→21:33)
--- NOTE | 2019-11-29 11:40 | PCM.PN.REN ---
Patient Problems: Active and Suspected Problems (Last Reviewed 11/23/19 @ 07:[address] Julio César Armijo MD) Appendicitis (Acute) MEGAN (acute kidney injury) (Acute) Subjective: Following for MEGAN on CKD. Pt has been cleared for regular diet today. No current CP or SOB. No nausea currently. - Physical Exam Vitals/I&O's: Vital Signs Temp Pulse Resp BP Pulse Ox 98.4 F 85 20 H 149/55 H 96 11/29/19 10:04 11/29/19 11:16 11/29/19 11:16 11/29/19 10:04 11/29/19 10:04 Oxygen Flow Rate (L/min) 2 Oxygen Delivery Method Nasal Cannula Weight: 99.9 kg Body Mass Index (BMI) 37.9 Finger Stick Blood Glucose 124 Intake and Output for Last 24 Hours 11/27/19 11/28/19 11/29/19 23:59 23:59 23:59 Intake Total 2069.43 / 2069.43 2036.42 / 2386.42 510 / 510 Output Total 2250 / 2250 600 / 700 400 / 400 Balance -180.57 / -180.57 1436.42 / 1686.42 110 / 110 General: Alert, Oriented x3 HEENT: Atraumatic Oral: Moist Mucosa Neck: Supple Lungs: Clear to auscultation Cardiovascular: Normal S1, Normal S2, No murmurs Abdomen: Bowel Sounds Present, Soft, Non Tender Extremities: No edema Microbiology Past 72 Hours 11/23/19 13:16 Incision/Surgical Site Gram Stain - Final 11/23/19 13:16 Incision/Surgical Site Wound Culture - Final Escherichia coli 11/23/19 13:16 Incision/Surgical Site Anaerobic Culture - Preliminary Checking for anaerobes, further studies to follow. 11/26/19 17:00 Urine Catheter - Morales Streptococcus pneumoniae Antigen (M - Final 11/26/19 17:00 Urine Catheter - Morales Legionella Antigen - Final Laboratory Results 11/26/19 17:00: Eos Smear Total Cells No Eosinophils Seen 11/28/19 12:00: POC Glucose 198 H 11/28/19 16:35: POC Glucose 118 H 11/29/19 00:15: POC Glucose 151 H 11/29/19 06:04: POC Glucose 144 H 11/29/19 10:05: WBC 9.1, RBC 3.22 L, Hgb 9.4 L, Hct 29.7 L, MCV 92.2, MCH 29.2, MCHC 31.6 L, RDW Std Deviation 48.0 H, RDW Coeff of [place] 14.3, Plt Count 261, MPV 10.9, Immature Gran % (Auto) 0.300, Neut % (Auto) 75.9 H, Lymph % (Auto) 11.0 L, [place] % (Auto) 7.6, Eos % (Auto) 4.8, Baso % (Auto) 0.4, Absolute Neuts (auto) 6.9, Absolute Lymphs (auto) 1.00, Nucleated RBC % 0 11/29/19 10:05: Sodium 134 L, Potassium 4.2, Chloride 107, Carbon Dioxide 20.0 L, Anion Gap 7, BUN 44 H, Creatinine 2.68 H, Estim Creat Clear Calc 13.24, Est GFR (MDRD) Af Amer 22 L, Est GFR (MDRD) Non-Af 18 L, BUN/Creatinine Ratio 16.4, Glucose 199 H, Calcium 8.0 L Current Medications Acetaminophen (Tylenol) 650 mg PO Q6H PRN PRN PRN Reason: Pain Score 1-1010 Last Admin: 11/26/19 17:37 Dose: 650 mg Documented by: Albuterol Sulfate (Ventolin Aerosols) 2.5 mg INHALATION Q2H PRN PRN PRN Reason: WHEEZING Last Admin: 11/24/19 23:43 Dose: 2.5 mg Documented by: Albuterol/Ipratropium (Duoneb) 3 ml INHALATION Q4HWA.RT [facility] Last Admin: 11/29/19 11:16 Dose: 3 ml Documented by: Allopurinol (Zyloprim) 300 mg PO DAILY@0800 [facility] Last Admin: 11/29/19 11:01 Dose: 300 mg Documented by: Amlodipine Besylate (Norvasc) 10 mg PO DAILY [facility] Last Admin: 11/29/19 11:01 Dose: 10 mg Documented by: Dextrose (D50w Syringe) 0 gm IV X1 PRN; Protocol PRN Reason: Hypoglycemia Flecainide Acetate (Tambocor) 100 mg PO BID [facility] Last Admin: 11/29/19 11:02 Dose: 100 mg Documented by: Fluticasone Propionate (Flonase Nasal [place]) 1 spray NASAL BID [facility] Last Admin: 11/29/19 11:01 Dose: 1 spray Documented by: Glucagon () 1 mg IM .X1 PRN PRN Reason: Hypoglycemia Hydralazine HCl (Apresoline Iv) 5 mg IV Q6H PRN PRN PRN Reason: SBP > 160 Sodium Chloride () 250 mls @ 15 mls/hr IV .[id number] PRN PRN Reason: Saline Flush Last Infusion: 11/29/19 11:20 Dose: 15 mls/hr Documented by: Pantoprazole Sodium 40 mg/ (Sodium Chloride) 110 mls @ 330 mls/hr IV Q24 [facility] Last Infusion: 11/29/19 11:20 Dose: Infused Documented by: Insulin Human Lispro (Humalog Kwikpen (Bkc)) 0 unit SC Q6 [facility]; Protocol Last Admin: 11/29/19 11:34 Dose: 1 u Documented by: Levothyroxine Sodium (Synthroid) 175 mcg PO DAILY@0600 [facility] Last Admin: 11/29/19 06:02 Dose: 175 mcg Documented by: Metoprolol Succinate (Toprol Xl (Beta Trang)) 25 mg PO DAILY [facility] Last Admin: 11/29/19 11:01 Dose: 25 mg Documented by: Morphine Sulfate () 2 mg IV Q3H PRN PRN PRN Reason: Pain Score 6-10/10 Last Admin: 11/23/19 08:59 Dose: 2 mg Documented by: Nutritional Formula (Lactose Free) (Ensure Clear) 120 ml PO 4X/DAY [facility] Last Admin: 11/29/19 11:02 Dose: 120 ml Documented by: Ondansetron HCl (Zofran) 4 mg IV Q8H PRN PRN PRN Reason: NAUSEA/VOMITING Last Admin: 11/27/19 09:31 Dose: 4 mg Documented by: Oxycodone HCl (Oxyir) 5 - 10 mg PO Q4H PRN PRN PRN Reason: Pain Score 6-10/10 Last Admin: 11/23/19 20:58 Dose: 10 mg Documented by: Pravastatin Sodium (Pravachol) 40 mg PO QHS [facility] Last Admin: 11/28/19 22:19 Dose: 40 mg Documented by: Senna/Docusate Sodium (Senokot-S, [place]-Colace) 2 tablet PO BID [facility] Sodium Chloride () 10 - 40 ml IV UD PRN PRN Reason: SALINE FLUSH Last Admin: 11/26/19 17:53 Dose: 10 ml Documented by: Sodium Chloride ([place] Nasal [place]) 2 spray NASAL TID PRN PRN PRN Reason: NASAL DRYNESS Last Admin: 11/26/19 22:51 Dose: 2 spray Documented by: Tamsulosin HCl (Flomax) 0.4 mg PO DAILY@1730 [facility] Last Admin: 11/28/19 19:07 Dose: 0.4 mg Documented by: Medical Necessity - Tobacco Use Smoking Status: Never smoker Assessment/Plan All Active Problems (Last Reviewed 11/23/19 @ 07:[address] Julio César Armijo MD) Appendicitis (Acute) MEGAN (acute kidney injury) (Acute) Garcia's palsy (Resolved) 1. Acute kidney injury on chronic kidney disease stage 3. She has known history of CKD stage III with baseline creatinine around 1.4-1.6. Now has acute renal failure. Improving. Initial CT abdomen did not show any hydronephrosis Urine analysis shows protein which is baseline she did have a CT abdomen with contrast on the . MEGAN is most likely due to ATN Blood pressure is ok Urine output is significantly better. Creatinine is continuing to improve. No need for dialysis. Will arrange for follow up within 1 week after discharge. 2. Ileus. Improving. Advancing diet as per surgery. 3. Proteinuria. Has about 1.3 g/day of urine protein at baseline. Usually on losartan. Hold ARB for now because of MEGAN. Will restart as outpt when renal function is closer to baseline. 4. History of fluid retention. As per our office records, she is on Lasix and Aldactone. currently on hold. CT shows wall edema. will resume Lasix once creatinine is back to baseline
[2019-11-29 11:51] LABS: Bedside Glucose 183 mg/dL (70-110)
--- NOTE | 2019-11-29 13:04 | PN_ITS ---
Patient Problems: Active and Suspected Problems (Last Reviewed 11/23/19 @ 07:[address] Julio César Armijo MD) Appendicitis (Acute) MEGAN (acute kidney injury) (Acute) Reason for Visit: Perforated appendix, acute kidney injury, JUAN and small bilateral pleural effusion Objective: Patient did not had fever. Had good bowel movement and flatus. Started on regular diet. Weakness Does not feel comfortable going home. On physical exam General: Alert, Oriented x3, Cooperative HEENT: Atraumatic, PERRLA, EOMI, Normocephalic Neck: Supple, No JVD, Negative Carotid Bruits Lungs: Clear to auscultation, No rhonchi, No wheeze, No rales, Diminished - Diminished bilateral lung bases Cardiovascular: Regular rate, Regular Rhythm, Normal S1, Normal S2, No murmurs Abdomen: Bowel Sounds Present, Soft, Non Tender, Passing Flatus and bowel movement. Nondistended. Extremities: No edema, Capillary Refill Less than 3 Seconds, mild ankle edema Skin: No rashes, No breakdown Musculoskeletal: No Tenderness to Palpation of Joints or Extremities, Arthritic Changes Neurological: Cranial nerves II-XII grossly intact Psych/Mental Status: Normal Affect, Appropriate Vitals/I&O's: Vital Signs Temp Pulse Resp BP Pulse Ox 98.4 F 85 20 H 149/55 H 96 11/29/19 10:04 11/29/19 11:16 11/29/19 11:16 11/29/19 10:04 11/29/19 10:04 Oxygen Flow Rate (L/min) 2 Oxygen Delivery Method Nasal Cannula Weight: 220 lb 3.869 oz Body Mass Index (BMI) 37.9 Finger Stick Blood Glucose 124 Intake and Output for Last 24 Hours 11/27/19 11/28/19 11/29/19 23:59 23:59 23:59 Intake Total 2069.43 / 2069.43 2036.42 / 2386.42 510 / 510 Output Total 2250 / 2250 600 / 700 400 / 400 Balance -180.57 / -180.57 1436.42 / 1686.42 110 / 110 Microbiology Past 72 Hours 11/23/19 13:16 Incision/Surgical Site Gram Stain - Final 11/23/19 13:16 Incision/Surgical Site Wound Culture - Final Escherichia coli 11/23/19 13:16 Incision/Surgical Site Anaerobic Culture - Preliminary Checking for anaerobes, further studies to follow. 11/26/19 17:00 Urine Catheter - Morales Streptococcus pneumoniae Antigen (M - Final 11/26/19 17:00 Urine Catheter - Morales Legionella Antigen - Final Laboratory Results 11/26/19 17:00: Eos Smear Total Cells No Eosinophils Seen 11/28/19 16:35: POC Glucose 118 H 11/29/19 00:15: POC Glucose 151 H 11/29/19 06:04: POC Glucose 144 H 11/29/19 10:05: WBC 9.1, RBC 3.22 L, Hgb 9.4 L, Hct 29.7 L, MCV 92.2, MCH 29.2, MCHC 31.6 L, RDW Std Deviation 48.0 H, RDW Coeff of Ashley 14.3, Plt Count 261, MPV 10.9, Immature Gran % (Auto) 0.300, Neut % (Auto) 75.9 H, Lymph % (Auto) 11.0 L, Moody % (Auto) 7.6, Eos % (Auto) 4.8, Baso % (Auto) 0.4, Absolute Neuts (auto) 6.9, Absolute Lymphs (auto) 1.00, Nucleated RBC % 0 11/29/19 10:05: Sodium 134 L, Potassium 4.2, Chloride 107, Carbon Dioxide 20.0 L , Anion Gap 7, BUN 44 H, Creatinine 2.68 H, Estim Creat Clear Calc 13.24, Est GFR (MDRD) Af Amer 22 L, Est GFR (MDRD) Non-Af 18 L, BUN/Creatinine Ratio 16.4, Glucose 199 H, Calcium 8.0 L 11/29/19 11:31: POC Glucose 183 H Current Medications Acetaminophen (Tylenol) 650 mg PO Q6H PRN PRN PRN Reason: Pain Score 1-10/10 Last Admin: 11/26/19 17:37 Dose: 650 mg Documented by: Albuterol Sulfate (Ventolin Aerosols) 2.5 mg INHALATION Q2H PRN PRN PRN Reason: WHEEZING Last Admin: 11/24/19 23:43 Dose: 2.5 mg Documented by: Albuterol/Ipratropium (Duoneb) 3 ml INHALATION Q4HWA.RT STEVIE Last Admin: 11/29/19 11:16 Dose: 3 ml Documented by: Allopurinol (Zyloprim) 300 mg PO DAILY@0800 [facility] Last Admin: 11/29/19 11:01 Dose: 300 mg Documented by: Amlodipine Besylate (Norvasc) 10 mg PO DAILY [facility] Last Admin: 11/29/19 11:01 Dose: 10 mg Documented by: Dextrose (D50w Syringe) 0 gm IV X1 PRN; Protocol PRN Reason: Hypoglycemia Flecainide Acetate (Tambocor) 100 mg PO BID [facility] Last Admin: 11/29/19 11:02 Dose: 100 mg Documented by: Fluticasone Propionate (Flonase Nasal [employer]) 1 spray NASAL BID [facility] Last Admin: 11/29/19 11:01 Dose: 1 spray Documented by: Glucagon () 1 mg IM .X1 PRN PRN Reason: Hypoglycemia Hydralazine HCl (Apresoline Iv) 5 mg IV Q6H PRN PRN PRN Reason: SBP > 160 Sodium Chloride () 250 mls @ 15 mls/hr IV .[id number] PRN PRN Reason: Saline Flush Last Infusion: 11/29/19 11:20 Dose: 15 mls/hr Documented by: Pantoprazole Sodium 40 mg/ (Sodium Chloride) 110 mls @ 330 mls/hr IV Q24 [facility] Last Infusion: 11/29/19 11:20 Dose: Infused Documented by: Insulin Human Lispro (Humalog Kwikpen (Bkc)) 0 unit SC Q6 [facility]; Protocol Last Admin: 11/29/19 11:34 Dose: 1 u Documented by: Levothyroxine Sodium (Synthroid) 175 mcg PO DAILY@0600 [facility] Last Admin: 11/29/19 06:02 Dose: 175 mcg Documented by: Metoprolol Succinate (Toprol Xl (Beta Trang)) 25 mg PO DAILY [facility] Last Admin: 11/29/19 11:01 Dose: 25 mg Documented by: Morphine Sulfate () 2 mg IV Q3H PRN PRN PRN Reason: Pain Score 6-10/10 Last Admin: 11/23/19 08:59 Dose: 2 mg Documented by: Nutritional Formula (Lactose Free) (Ensure Clear) 120 ml PO 4X/DAY [facility] Last Admin: 11/29/19 11:02 Dose: 120 ml Documented by: Ondansetron HCl (Zofran) 4 mg IV Q8H PRN PRN PRN Reason: NAUSEA/VOMITING Last Admin: 11/27/19 09:31 Dose: 4 mg Documented by: Oxycodone HCl (Oxyir) 5 - 10 mg PO Q4H PRN PRN PRN Reason: Pain Score 6-10/10 Last Admin: 11/23/19 20:58 Dose: 10 mg Documented by: Pravastatin Sodium (Pravachol) 40 mg PO QHS [facility] Last Admin: 11/28/19 22:19 Dose: 40 mg Documented by: Senna/Docusate Sodium (Senokot-S, Lindsay-Colace) 2 tablet PO BID [facility] Sodium Chloride () 10 - 40 ml IV UD PRN PRN Reason: SALINE FLUSH Last Admin: 11/26/19 17:53 Dose: 10 ml Documented by: Sodium Chloride ([place] Nasal [employer]) 2 spray NASAL TID PRN PRN PRN Reason: NASAL DRYNESS Last Admin: 11/26/19 22:51 Dose: 2 spray Documented by: Tamsulosin HCl (Flomax) 0.4 mg PO DAILY@1730 [facility] Last Admin: 11/28/19 19:07 Dose: 0.4 mg Documented by: STROKE Vital Signs/Narrative: Vital Signs Temp Pulse Resp BP Pulse Ox 11/29/19 11:16 85 20 H 11/29/19 11:01 85 11/29/19 10:04 98.4 F 85 20 H 149/55 H 96 11/29/19 10:00 94 Medical Necessity - Tobacco Use Smoking Status: Never smoker Assessment/Plan All Active Problems (Last Reviewed 11/23/19 @ 07:[address] Julio César Armijo MD) Appendicitis (Acute) MEGAN (acute kidney injury) (Acute) Garcia's palsy (Resolved) The patient is a 79 year old F with a significant for paroxysmal A. fib; permanent pacemaker; sick sinus syndrome who presents emergency department with excruciating right lower quadrant pain and abdomen and pelvis CT showing acute appendicitis. 1. Acute perforated appendicitis: Had laparoscopic appendectomy on 11/23/2019. On zosyn. Patient is afebrile but has high white count. 11/26: Leukocytosis improving. H&H is stable. KUB shows adynamic ileus. Patient remains n.p.o. Has not passed flatus. Discussed with surgeon. 11/27: Patient had bowel movement yesterday, small. Bowel sounds improved. Discussed with surgeon. CT abdomen with oral contrast ordered. CT scan abdomen pelvis discussed with surgeon. Shows mild gaseous distention of transverse colon. The contrast reaching up to the colon. No free fluid or abscess or free air seen. Surgical changes in the region of prior appendectomy. 11/28: Patient had oral and rectal Dulcolax, ordered by surgeon. Since patient will pass flatus. As per nursing staff, she had small bowel movement yesterday. Mild abdominal distention with hypoactive bowel sounds suggestive postoperative ileus : Antibiotic discontinued yesterday. 2. Acute respiratory distress/insufficiency with hypoxia: 11/26: Crepitations present on lung exam. Lasix 40 mg IV ordered. IV fluid discontinued. Chest x-ray with BNP ordered. Flonase ordered. Patient is on bronchodilator. Continue incentive spirometry and pep 11/27: Continue incentive spirometry and pep. Lower cuts of CT abdomen shows no pneumonic consolidation but bilateral pleural effusion. 11/28 continue same. Aggressive bronchopulmonary hygiene. Surgical site culture is showing E. coli, pansensitive. And had 6 days of IV Zosyn. Antibiotic discontinued , continue PT OT and bronchopulmonary hygiene. 3. 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 Overall is suggestive of right ventricular failure, moderate pulmonary hypertension and HFpEF Echo in October 2018. Interpretation Summary Mild concentric left ventricular hypertrophy. The estimated ejection fraction is 75 %. Mildly dilated right ventricle. The left atrium is moderately enlarged. Mild-Moderate (1-2+) posteriorly directed mitral valve insufficiency. Mild (1+) tricuspid valve insufficiency. Right ventricular systolic pressure estimated to be 51 mmHg. Moderate pulmonary hypertension. Compared to echo report dated 03/10/2013, LV function has remained the same, but RVSP has now increased from 30 to 51 mm Hg. Pt now appears to be in atrial fibrillation. 11/26: Chest x-ray ordered. Chest x-ray is independently reviewed and shows a left CP angle obliteration possible subsegmental atelectasis or small pneumonic infiltrate. already on IV Zosyn. Urinary antigens ordered. Patient does not sputum. ID is consulted. E. coli UTI: On IV Zosyn. It is also for perforated appendicitis. 11/27: Discussed with ID. Okay with the antibiotic. 11/28 IV fluid has been discontinued. Patient is about positive about 5.8 L fluid balance. Having good diuresis 3. Acute on CKD stage IV with urine retention most probably JUAN/postoperative urine retention. Piercing Specialist is been consulted. Will start Morales catheter for drainage. Patient creatinine jumped up from 1.69-2.52 most probably Intra-Op urine retention. 11/25: Patient had Morales catheter yesterday. Creatinine went up from 2.5-3.5. Seen by smash piecer. Most probably JUAN. On IV fluid normal saline 200 mils per hour. Titrate the flow of normal saline as per hydration status and fluid overload. IV contrast was given on 11/23 therefore more than 48 hours. 11/26: BUN/creatinine getting worse 55/4.29, estimated creatinine clearance less than 10 mL/min. Discussed with smash piecer. Monitor BUN/creatinine may require temporary dialysis. 11/27: BUN/creatinine seems plateau. Good urine output. Indication for dialysis is under consideration but I think probably she will not need it 11/28: Patient had good urine output about 1300 mL since morning and about 1000 mL yesterday. Discussed with smash piecer. No need for dialysis as kidney seems to be stabilizing with good urine output. : Creatinine improving. Morales catheter removed. 4. pAfib - Flecainide, metoprolol. Rate stable. Hold Coumadin. 11/25: Resume Coumadin 11/26 INR 1.7. Coumadin resumed. 11/28: INR 3.0. Coumadin discontinued 5. Dmt2 - SSI, on Lantus. Diet advanced to regular diet. 6. Hx SSS - has pacemaker 7. hypothyroid - synthroid 8. Hx Gout - allopurinol 9. [place] palsy - not on steroids. 10. HTN - elevated. home meds + prn hydralazine. DVT ppx: SCDs Plan of management discussed with the patient's and 2 sons present near the bedside. Total time of the visit including total time spent in counseling or coordination of care, (more than 50% of the total time, spent in obtaining medical infor mation from nurses and other ancillary care providers), coordination of care with consultants review of labs and imaging is 30 minutes Microbiology Past 72 Hours 11/23/19 13:16 Incision/Surgical Site Gram Stain - Final 11/23/19 13:16 Incision/Surgical Site Wound Culture - Final Escherichia coli 11/23/19 13:16 Incision/Surgical Site Anaerobic Culture - Preliminary Checking for anaerobes, further studies to follow. 11/26/19 17:00 Urine Catheter - Morales Streptococcus pneumoniae Antigen (M - Final 11/26/19 17:00 Urine Catheter - Morales Legionella Antigen - Final Laboratory Results 11/26/19 17:00: Eos Smear Total Cells No Eosinophils Seen 11/28/19 16:35: POC Glucose 118 H 11/29/19 00:15: POC Glucose 151 H 11/29/19 06:04: POC Glucose 144 H 11/29/19 10:05: WBC 9.1, RBC 3.22 L, Hgb 9.4 L, Hct 29.7 L, MCV 92.2, MCH 29.2, MCHC 31.6 L, RDW Std Deviation 48.0 H, RDW Coeff of Ashley 14.3, Plt Count 261, MPV 10.9, Immature Gran % (Auto) 0.300, Neut % (Auto) 75.9 H, Lymph % (Auto) 11.0 L, Moody % (Auto) 7.6, Eos % (Auto) 4.8, Baso % (Auto) 0.4, Absolute Neuts (auto) 6.9, Absolute Lymphs (auto) 1.00, Nucleated RBC % 0 11/29/19 10:05: Sodium 134 L, Potassium 4.2, Chloride 107, Carbon Dioxide 20.0 L , Anion Gap 7, BUN 44 H, Creatinine 2.68 H, Estim Creat Clear Calc 13.24, Est GFR (MDRD) Af Amer 22 L, Est GFR (MDRD) Non-Af 18 L, BUN/Creatinine Ratio 16.4, Glucose 199 H, Calcium 8.0 L 11/29/19 11:31: POC Glucose 183 H Clinical Impression(s) from Imaging Studies Abdomen/Pelvis CT 11/22/19 21:26 IMPRESSION: Indeterminate study. Probable acute nonperforated appendicitis Recommend clinical correlation. Renal Ultrasound 11/24/19 10:31 IMPRESSION: Nonspecific increased echogenicity of the kidneys suggesting underlying medical renal disease no evidence of hydronephrosis possible 6 mm cyst right kidney. The ureteral jets are not seen. Recommend correlation with clinical findings laboratory values comparison studies demonstrate inflammatory changes in the right lower quadrant at the level of the cecum suspicious for appendicitis as described on the recent study. There is also an abnormal mass within the mesentery that measures 2.7 cm. Electronically Signed: Miriam Warner MD at 13:49 EST Tel , Service support , Chest X-Ray 11/24/19 16:34 IMPRESSION: Stable mild cardiomegaly Worsening left lower lobe retrocardiac opacity infiltrate and/or atelectasis Cardiac pacemaker Electronically Signed: Vincent Silvestre at 18:47 EST Tel , Service support , KUB X-Ray 11/24/19 16:50 IMPRESSION: Likely ileus with distended loops of bowel predominantly colon Electronically Signed: Vincent Silvestre at 18:50 EST Tel , Service support , Chest X-Ray 11/26/19 08:01 IMPRESSION: Left cardiac pacemaker is noted in place. Subsegmental atelectasis is also seen in the left lung base and a small left lung base pneumonic infiltrate cannot be excluded. Electronically Signed: Royce Martinez at 11:14 EST Tel , Service support , KUB X-Ray 11/26/19 08:09 IMPRESSION: Mild adynamic ileus.. Electronically Signed: Royce Martinez at 14:07 EST Tel , Service support , Abdomen CT 11/27/19 09:20 IMPRESSION: 1. There is mild gaseous distention of the transverse colon. Reidentification of multiple colonic diverticula. No bowel obstruction. No free air or free fluid. 2. There is surgical suture material in the region of the appendix consistent with a prior appendectomy. 3. Small cyst/hypodensity seen in the uncinate process of the head of the pancreas on image [id number] reidentified although not well viewed without intravenous contrast. The remaining aspects of the pancreas are grossly unremarkable. 4. Diffuse body wall edema has developed since the prior study. Intracardiac pacemaker leads noted. A small pericardial effusion is present. 5. Interval development of mild groundglass edema in the lung bases and small bilateral pleural effusions. Mild bibasilar atelectasis has also developed. Code Visit Inpatient E&M: 39056 Subs Hosp L2
[2019-11-29 13:51] LABS: International Normalized Ratio 3.1; Prothrombin Time (Protime)PT. 32.1 SECONDS (11.7-14.9)
[2019-11-29] MEDS: 0.9% Saline Lock 10 ML Syringe IV (15:57)
[2019-11-29] MEDS: Tamsulosin HCl 0.4 MG Capsule PO (18:20)
[2019-11-29 18:40] LABS: Bedside Glucose 158 mg/dL (70-110)
[2019-11-29] MEDS: Pravastatin 40 MG Tablet PO (21:33)
[2019-11-29 22:16] LABS: Bedside Glucose 200 mg/dL (70-110)
[2019-11-30] VITALS (8 sets, daily range): BP systolic 151–156; BP diastolic 54–58; PULSE 69–79; RESP 16–20; TEMP 36.8–37.1; O2SAT 91–96
[2019-11-30] MEDS: Levothyroxine 175 MCG Tablet PO (06:34)
[2019-11-30 06:50] LABS: Bedside Glucose 138 mg/dL (70-110)
[2019-11-30] MEDS: Ipratropium/Albuterol Sulfate 3 ML AMPUL.NEB INHALATION ×3 (06:54→14:30)
[2019-11-30 08:08] LABS: Anion Gap 8 (5-15); BUN 35 mg/dL (7-18); BUN/Creat Ratio 16.4 RATIO (10-20); Calcium,Total 7.7 mg/dL (8.5-10.1); Chloride 105 mmol/L (98-107); Creatinine, Serum 2.14 mg/dL (0.55-1.02); EST Glomerular Filtration Rate 24 mL/min (>60); Est Glom Filt Rate - Afr Amer 29 mL/min (>60); Estimated Creatinine Clearance 16.58 ml/min; Glucose 133 mg/dL (74-106); Potassium 4.1 mmol/L (3.5-5.1); Sodium Level 133 mmol/L (136-145)
[2019-11-30 08:20] LABS: International Normalized Ratio 2.7; Prothrombin Time (Protime)PT. 28.5 SECONDS (11.7-14.9)
--- NOTE | 2019-11-30 08:43 | DCINST_ITS ---
- Discharge Diagnoses Current Active Problems: Current Active and Chronic Problems (Last Reviewed 11/23/19 @ 07:[address] Julio César Armijo MD) Appendicitis (Acute) MEGAN (acute kidney injury) (Acute) You will use the following diet at home:: Calorie/Carbohydrate Controlled (specify 1200, 1400, etc), Cardiac Your liquids should be the consistency of: Regular/Thin Discharge Activity: May Not Drive Weight Bearing Status: Weight bearing as tolerated Call your doctor if you observe: Fever of 101 or Higher, Inability to urinate, Inability to have a bowel movement, Shortness of breath, Dizziness, Fainting spells, Swelling in the ankles, Chest pain, Increased palpitations (irregular heartbeat), Calf discomfort, Uncontrolled pain Allergies/Adverse Reactions: Allergies atorvastatin calcium [From Lipitor] Adverse Reaction (Verified 11/22/19 20:19) cough enalapril maleate [From Vasotec] Adverse Reaction (Verified 11/22/19 20:19) cough enalaprilat dihydrate [From Vasotec] Adverse Reaction (Verified 11/22/19 20:19) cough Medications to take at Discharge Albuterol Inhaler [Ventolin Hfa] 2 puff INHALATION Q4H PRN PRN 08/10/15 Allopurinol [Zyloprim] 300 mg PO DAILY 08/10/15 Amlodipine [Norvasc] 10 mg PO DAILY 08/10/15 Aspirin [Aspirin, Baby] 81 mg PO DAILY@0800 08/10/15 Cholecalciferol (VIT D3) [Vitamin D3] 2,000 unit PO BID 08/10/15 Pravastatin [Pravachol] 40 mg PO DAILY 10/04/18 Levothyroxine Sodium [Synthroid] 175 mcg PO DAILY 10/25/18 calcium carbonate 500 mg (1,250 mg)-vitamin D3 200 unit tablet 1 tab PO DAILY tab 03/04/19 folic acid 0.8 mg capsule 0.8 mg PO DAILY 03/04/19 multivitamin with minerals 1 tab PO DAILY tab 03/04/19 Flecainide Acetate 100 mg PO BID 11/23/19 Metoprolol Succinate [Toprol Xl] 37.5 mg PO DAILY 11/23/19 Warfarin Sodium [Coumadin] 6 mg PO .COMPLEX 11/23/19 Furosemide [Lasix] 40 mg PO DAILY #0 11/30/19 Insulin Glargine,Hum.rec.anlog [Lantus] 20 unit SQ DAILY #0 11/30/19 Insulin Lispro [Humalog] 5 unit SQ TIDCM #0 11/30/19 Losartan Potassium [Cozaar] 50 mg PO DAILY #0 11/30/19 Senna/Docusate Sodium [Senokot-S] 2 tab PO BID PRN PRN #30 tab 11/30/19 The following prescriptions were given: Senna/Docusate Sodium [Senokot-S] 2 tab PO BID PRN PRN #30 tab PRN Reason: Constipation Transmission Status: Pending to [facility] [facility] Primary Care Physician: Marcelino Moon DO [Primary Care Provider] - Please follow up with your Primary Care Physician in: in 1-2 week Test Results: Test results from this visit will be discussed in further detail at your follow- up appointment, if applicable. Please Follow Up With: Kiara Del Real MD When: in 1 week Please Follow Up With: Darren Hendrickson MD When: in 1 week to follow up BMP and titrate dose of Lasix and losartan
--- NOTE | 2019-11-30 08:45 | PCM.DC.SUM ---
Discharge Date and Diagnosis - Problem List Patient Problems: Active and Suspected Problems (Last Reviewed 11/23/19 @ 07:[address] Julio César Armijo MD) Appendicitis (Acute) MEGAN (acute kidney injury) (Acute) Date of Admission: 11/23/19 Date of Discharge: 11/30/19 - Primary Discharge Diagnosis Active and Suspected Problems (Last Reviewed 11/23/19 @ 07:[address] Julio César Armijo MD) Appendicitis (Acute) MEGAN (acute kidney injury) (Acute) - Secondary Discharge Diagnosis Chronic Problems (Last Reviewed 11/23/19 @ 07:[address] 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: [employer], Model # [id number] , Serial # [id number] Sick sinus syndrome (Chronic) detention current use of anticoagulant (Chronic) Essential hypertension (Chronic) Diabetes mellitus (Chronic) Cerebrovascular disease (Chronic) asympt small left thalamic infarct Paroxysmal atrial fibrillation (Chronic) on coumadin Gout (Chronic) Osteoporosis (Chronic) Hypothyroid (Chronic) Dyslipidemia (Chronic) HLD (hyperlipidemia) (Chronic) CKD (chronic kidney disease) stage 2, GFR 60-89 ml/min (Chronic) Hospital Course and Treatment Operations: None Summary of Care Provided: [] The patient is a 79 year old F with a significant for paroxysmal A. fib; permanent pacemaker; sick sinus syndrome who presents emergency department with excruciating right lower quadrant pain and abdomen and pelvis CT showing acute appendicitis. 1. Acute perforated appendicitis: Had laparoscopic appendectomy on 11/23/2019. On zosyn. Patient is afebrile but has high white count. 's postop. Was complicated with adynamic bowel ileus. This was further managed in consultation with surgeon. Repeat CT abdomen with oral contrast was done and found contrast reaching up to: With mild gaseous distention of transverse colon. No free fluid or abscess or free air seen. Surgical changes in the region of prior appendectomy. Patient had oral and rectal Dulcolax, and had good bowel movement. Patient is passing flatus. Tolerated regular diet. Discharged home. Follow-up with surgeon Dr. Del Real in 1 week Patient completed 7 days of IV antibiotic Zosyn 2. Acute respiratory distress/insufficiency with hypoxia: Mainly secondary to bilateral small pulmonary effusion and atelectasis. Advised to continue aggressive bronchopulmonary hygiene with Pap and incentive spirometry. Pneumonia was ruled out. Urinary antigens negative. No pneumonic consolidation in lower cuts of abdominal CT. 3. 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 Overall is suggestive of right ventricular failure, moderate pulmonary hypertension and HFpEF Echo in October 2018. Interpretation Summary Mild concentric left ventricular hypertrophy. The estimated ejection fraction is 75 %. Mildly dilated right ventricle. The left atrium is moderately enlarged. Mild-Moderate (1-2+) posteriorly directed mitral valve insufficiency. Mild (1+) tricuspid valve insufficiency. Right ventricular systolic pressure estimated to be 51 mmHg. Moderate pulmonary hypertension. Compared to echo report dated 03/10/2013, LV function has remained the same, but RVSP has now increased from 30 to 51 mm Hg. Pt now appears to be in atrial fibrillation. On intermittent Lasix. 3. Acute on CKD stage IV with urine retention most probably JUAN/postoperative urine retention. Workers Compensation Specialist is been consulted. Will start Morales catheter for drainage. Patient creatinine jumped up from 1.69-2.52 most probably Intra-Op urine retention. Patient had Morales catheter. This was managed with at risk specialist. BUN/creatinine getting worse 55/4.29, estimated creatinine clearance less than 10 mL/min. Subsequently this improved and patient had good urine output. Last BUN/creatinine 35/2.14. Advised follow-up with at risk specialist in 1 week. Resume Lasix 40 mg daily once daily as needed for leg swelling and follow-up with at risk specialist along with BMP in 1 week. 4. pAfib - Flecainide, metoprolol. Rate stable. Hold Coumadin. 11/25: Resume Coumadin 11/26 INR 1.7. Coumadin resumed. 11/28: INR 3.0. Coumadin discontinued 5. Dmt2 - SSI, on Lantus. Diet advanced to regular diet. 6. Hx SSS - has pacemaker 7. hypothyroid - synthroid 8. Hx Gout - allopurinol 9. 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 10. HTN - elevated. home meds + prn hydralazine. DVT ppx: SCDs Plan of management discussed with the patient's and 2 sons present near the bedside. Discharge medication reconciliation done. Discharge follow-up instructions completed. Discharge process discussed with the patient and all questions were answered to patient's satisfaction. Total time spent, exact 35 minutes on discharge meds reconciliation, examination, coordination of care with nurses and ancillary staff, review of imaging and blood test and discussion with the patient on follow-up instructions Abdomen CT 11/27/19 09:20 IMPRESSION: 1. There is mild gaseous distention of the transverse colon. Reidentification of multiple colonic diverticula. No bowel obstruction. No free air or free fluid. 2. There is surgical suture material in the region of the appendix consistent with a prior appendectomy. 3. Small cyst/hypodensity seen in the uncinate process of the head of the pancreas on image [id number] reidentified although not well viewed without intravenous contrast. The remaining aspects of the pancreas are grossly unremarkable. 4. Diffuse body wall edema has developed since the prior study. Intracardiac pacemaker leads noted. A small pericardial effusion is present. 5. Interval development of mild groundglass edema in the lung bases and small bilateral pleural effusions. Mild bibasilar atelectasis has also developed. Patient Problems: Active and Suspected Problems (Last Reviewed 11/23/19 @ 07:[address] Julio César Armijo MD) Appendicitis (Acute) MEGAN (acute kidney injury) (Acute) Subjective: Patient had mild cough. Complain of swelling in the leg and wheezing. Lasix 40 mg IV 1 dose and recommended Lasix 40 mg daily for leg swelling. Patient passed a lot of flatus and gas on regular diet. Objective: Fever or chills. Patient monitored 2 days of antibiotic. Had already completed 7 days of IV antibiotic Zosyn. General: Alert, Oriented x3, Cooperative HEENT: Atraumatic, PERRLA, EOMI, Normocephalic Neck: Supple, No JVD, Negative Carotid Bruits Lungs: mild expiratory wheezing. No rales, air entry diminished bilateral lung bases Cardiovascular: Regular rate, Regular Rhythm, Normal S1, Normal S2, No murmurs Abdomen: Bowel Sounds Present, Soft, Non Tender, Passing Flatus and bowel movement. Nondistended. Passing flatus. Extremities: No edema, Capillary Refill Less than 3 Seconds, mild ankle edema Skin: No rashes, No breakdown Musculoskeletal: No Tenderness to Palpation of Joints or Extremities, Arthritic Changes Neurological: Cranial nerves II-XII grossly intact Psych/Mental Status: Normal Affect, Appropriate - Physical Exam Vitals/I&O's: Vital Signs Temp Pulse Resp BP Pulse Ox 98.8 F 69 20 H 156/58 H 93 11/30/19 03:31 11/30/19 06:54 11/30/19 06:54 11/30/19 03:31 11/30/19 06:54 Oxygen Flow Rate (L/min) 2 Oxygen Delivery Method Room Air Weight: 219 lb 12.814 oz Body Mass Index (BMI) 37.9 Finger Stick Blood Glucose 124 Intake and Output for Last 24 Hours 11/28/19 11/29/19 11/30/19 23:59 23:59 23:59 Intake Total 2036.42 / 2386.42 1630 / 1630 Output Total 600 / 700 1800 / 1800 Balance 1436.42 / 1686.42 -170 / -170 Microbiology Past 72 Hours 11/23/19 13:16 Incision/Surgical Site Gram Stain - Final 11/23/19 13:16 Incision/Surgical Site Wound Culture - Final Escherichia coli 11/23/19 13:16 Incision/Surgical Site Anaerobic Culture - Preliminary Checking for anaerobes, further studies to follow. Laboratory Results 11/29/19 10:05: WBC 9.1, RBC 3.22 L, Hgb 9.4 L, Hct 29.7 L, MCV 92.2, MCH 29.2, MCHC 31.6 L, RDW Std Deviation 48.0 H, RDW Coeff of Ashley 14.3, Plt Count 261, MPV 10.9, Immature Gran % (Auto) 0.300, Neut % (Auto) 75.9 H, Lymph % (Auto) 11.0 L, [place] % (Auto) 7.6, Eos % (Auto) 4.8, Baso % (Auto) 0.4, Absolute Neuts (auto) 6.9, Absolute Lymphs (auto) 1.00, Nucleated RBC % 0 11/29/19 10:05: Sodium 134 L, Potassium 4.2, Chloride 107, Carbon Dioxide 20.0 L, Anion Gap 7, BUN 44 H, Creatinine 2.68 H, Estim Creat Clear Calc 13.24, Est GFR (MDRD) Af Amer 22 L, Est GFR (MDRD) Non-Af 18 L, BUN/Creatinine Ratio 16.4, Glucose 199 H, Calcium 8.0 L 11/29/19 11:31: POC Glucose 183 H 11/29/19 13:32: PT 32.1 H, INR 3.1 11/29/19 18:18: POC Glucose 158 H 11/29/19 21:32: POC Glucose 200 H 11/30/19 06:10: Sodium 133 L, Potassium 4.1, Chloride 105, Carbon Dioxide 20.0 L, Anion Gap 8, BUN 35 H, Creatinine 2.14 H, Estim Creat Clear Calc 16.58, Est GFR (MDRD) Af Amer 29 L, Est GFR (MDRD) Non-Af 24 L, BUN/Creatinine Ratio 16.4, Glucose 133 H, Calcium 7.7 L 11/30/19 06:10: PT 28.5 H, INR 2.7 11/30/19 06:32: POC Glucose 138 H Current Medications Acetaminophen (Tylenol) 650 mg PO Q6H PRN PRN PRN Reason: Pain Score 1-10/10 Last Admin: 11/26/19 17:37 Dose: 650 mg Documented by: Albuterol Sulfate (Ventolin Aerosols) 2.5 mg INHALATION Q2H PRN PRN PRN Reason: WHEEZING Last Admin: 11/24/19 23:43 Dose: 2.5 mg Documented by: Albuterol/Ipratropium (Duoneb) 3 ml INHALATION Q4HWA.RT [facility] Last Admin: 11/30/19 06:54 Dose: 3 ml Documented by: Allopurinol (Zyloprim) 300 mg PO DAILY@0800 [facility] Last Admin: 11/29/19 11:01 Dose: 300 mg Documented by: Amlodipine Besylate (Norvasc) 10 mg PO DAILY [facility] Last Admin: 11/29/19 11:01 Dose: 10 mg Documented by: Dextrose (D50w Syringe) 0 gm IV X1 PRN; Protocol PRN Reason: Hypoglycemia Flecainide Acetate (Tambocor) 100 mg PO BID [facility] Last Admin: 11/29/19 21:34 Dose: 100 mg Documented by: Fluticasone Propionate (Flonase Nasal Mcbain) 1 spray NASAL BID [facility] Last Admin: 11/29/19 21:33 Dose: 1 spray Documented by: Glucagon () 1 mg IM .X1 PRN PRN Reason: Hypoglycemia Hydralazine HCl (Apresoline Iv) 5 mg IV Q6H PRN PRN PRN Reason: SBP > 160 Sodium Chloride () 250 mls @ 15 mls/hr IV .[id number] PRN PRN Reason: Saline Flush Last Infusion: 11/29/19 16:07 Dose: Infused Documented by: Pantoprazole Sodium 40 mg/ (Sodium Chloride) 110 mls @ 330 mls/hr IV Q24 [facility] Last Infusion: 11/29/19 11:20 Dose: Infused Documented by: Insulin Human Lispro (Humalog Kwikpen (Bkc)) 0 unit SC Q6 [facility]; Protocol Last Admin: 11/30/19 06:34 Dose: Not Given Documented by: Levothyroxine Sodium (Synthroid) 175 mcg PO DAILY@0600 [facility] Last Admin: 11/30/19 06:34 Dose: 175 mcg Documented by: Metoprolol Succinate (Toprol Xl (Beta Trang)) 25 mg PO DAILY [facility] Last Admin: 11/29/19 11:01 Dose: 25 mg Documented by: Morphine Sulfate () 2 mg IV Q3H PRN PRN PRN Reason: Pain Score 6-10/10 Last Admin: 11/23/19 08:59 Dose: 2 mg Documented by: Nutritional Formula (Lactose Free) (Ensure Clear) 120 ml PO 4X/DAY [facility] Last Admin: 11/29/19 21:33 Dose: 120 ml Documented by: Ondansetron HCl (Zofran) 4 mg IV Q8H PRN PRN PRN Reason: NAUSEA/VOMITING Last Admin: 11/27/19 09:31 Dose: 4 mg Documented by: Oxycodone HCl (Oxyir) 5 - 10 mg PO Q4H PRN PRN PRN Reason: Pain Score 6-10/10 Last Admin: 11/23/19 20:58 Dose: 10 mg Documented by: Pravastatin Sodium (Pravachol) 40 mg PO QHS [facility] Last Admin: 11/29/19 21:33 Dose: 40 mg Documented by: Senna/Docusate Sodium (Senokot-S, Lindsay-Colace) 2 tablet PO BID [facility] Last Admin: 11/29/19 21:35 Dose: Not Given Documented by: Sodium Chloride () 10 - 40 ml IV UD PRN PRN Reason: SALINE FLUSH Last Admin: 11/29/19 15:57 Dose: 10 ml Documented by: Sodium Chloride ([place] Nasal Mcbain) 2 spray NASAL TID PRN PRN PRN Reason: NASAL DRYNESS Last Admin: 11/26/19 22:51 Dose: 2 spray Documented by: Tamsulosin HCl (Flomax) 0.4 mg PO DAILY@1730 [facility] Last Admin: 11/29/19 18:20 Dose: 0.4 mg Documented by: Discharge Activity: May Not Drive Weight Bearing Status: Weight bearing as tolerated Call your doctor if you observe: Fever of 101 or Higher, Inability to urinate, Inability to have a bowel movement, Shortness of breath, Dizziness, Fainting spells, Swelling in the ankles, Chest pain, Increased palpitations (irregular heartbeat), Calf discomfort, Uncontrolled pain Home Medications: Medications to take at Discharge Albuterol Inhaler [Ventolin Hfa] 2 puff INHALATION Q4H PRN PRN 08/10/15 Allopurinol [Zyloprim] 300 mg PO DAILY 08/10/15 Amlodipine [Norvasc] 10 mg PO DAILY 08/10/15 Aspirin [Aspirin, Baby] 81 mg PO DAILY@0800 08/10/15 Cholecalciferol (VIT D3) [Vitamin D3] 2,000 unit PO BID 08/10/15 Pravastatin [Pravachol] 40 mg PO DAILY 10/04/18 Levothyroxine Sodium [Synthroid] 175 mcg PO DAILY 10/25/18 calcium carbonate 500 mg (1,250 mg)-vitamin D3 200 unit tablet 1 tab PO DAILY tab 03/04/19 folic acid 0.8 mg capsule 0.8 mg PO DAILY 03/04/19 multivitamin with minerals 1 tab PO DAILY tab 03/04/19 Flecainide Acetate 100 mg PO BID 11/23/19 Metoprolol Succinate [Toprol Xl] 37.5 mg PO DAILY 11/23/19 Warfarin Sodium [Coumadin] 6 mg PO .COMPLEX 11/23/19 Furosemide [Lasix] 40 mg PO DAILY #0 11/30/19 Insulin Glargine,Hum.rec.anlog [Lantus] 20 unit SQ DAILY #0 11/30/19 Insulin Lispro [Humalog] 5 unit SQ TIDCM #0 11/30/19 Losartan Potassium [Cozaar] 50 mg PO DAILY #0 11/30/19 Psyllium Husk [Metamucil] 660 gm PO DAILY PRN #1 bottle 11/30/19 Senna/Docusate Sodium [Senokot-S] 2 tab PO BID PRN PRN #30 tab 11/30/19 Following Prescrptions Were Given to Patient: Psyllium Husk [Metamucil] 660 gm PO DAILY PRN #1 bottle PRN Reason: constipation Transmission Status: Received by MARIA DEL ROSARIO [id number] FREDY LUJAN Senna/Docusate Sodium [Senokot-S] 2 tab PO BID PRN PRN #30 tab PRN Reason: Constipation Transmission Status: Received by MARIA DEL ROSARIO [id number] [facility] Primary Care Physician: Marcelino Moon DO [Primary Care Provider] - Please follow up with your Primary Care Physician in: in 1-2 week Please Follow Up With: Kiara Del Real MD When: in 1 week Please Follow Up With: Darren Hendrickson MD When: in 1 week to follow up BMP and titrate dose of Lasix and losartan Medical Necessity - Tobacco Use Smoking Status: Never smoker Meaningful Use Info Meaningful Use Diagnoses (Choose all that apply): None applicable Code Visit Inpatient E&M: 14022 Disch Hosp
[2019-11-30] MEDS: Metoprolol(XL)Succ 25 MG Tablet PO (08:50)
[2019-11-30] MEDS: amLODIPine 10 MG Tablet PO (08:50)
[2019-11-30] MEDS: Flecainide 100 MG Tablet PO (08:50)
[2019-11-30] MEDS: Allopurinol 300 MG Tablet PO (08:50)
[2019-11-30] MEDS: Fluticasone 0.05% 1 SPRAY NASAL.SRY NASAL (08:51)
[2019-11-30] MEDS: Ensure Clear 120 ML Liquid PO (08:51)
[2019-11-30] MEDS: Senna/Docusate Sodium 1 Tablet 2 TABLET PO (08:53)
[2019-11-30] MEDS: 0.9% Saline Lock 10 ML Syringe IV ×2 (08:54→09:50)
[2019-11-30] MEDS: Furosemide 40 MG/4 ML Vial IV (09:49)
--- NOTE | 2019-11-30 15:27 | NURSING ---
pT HAS HAD REGULAR DIET FOR BREAKFAST AND LUNCH AND NO ABD PAIN, NO CRAMPING, NO PROBLEMS.
--- NOTE | 2019-12-01 16:17 | CASEMGMT ---
Case Management DC F/u Call: DC Date: 11/30/2019 DC Diagnosis: Appendicitis (Acute) MEGAN (acute kidney injury) (Acute) DC Disposition: Home Lace/Strata: 11/01 Called patient listed cell phone on demographics, no answer, VM did not verify correct identity of patient and therefor no VM was left. Called patient home phone- someone answered- patient ?? states cannot hear you and this singer songwriter spoke up multiple times but person appeared to hang up but phone still supervisor contact lens- this singer songwriter ended conversation. Naun Simons, RNCM
== END 2019-11-30 14:50 | disposition home or self-care (01) | DRG 338 ==
LOC: ED 21:14 → MS3 11-23 05:16
PROVIDERS: Internal Medicine; Internal Medicine Infectious Disease; Internal Medicine Nephrology; Student in an Organized Health Care Education/Training Program; Surgery; Admitting Provider Hospitalist; Emergency Provider Emergency Medicine; PCP Student in an Organized Health Care Education/Training Program; Visit Provider Internal Medicine
PROC: 0DTJ4ZZ Resection of Appendix, Percutaneous Endoscopic Approach (ICD-10-PCS; CPT 44970; principal; 2019-11-23 12:00)
DX: K35.32 Acute appendicitis with perforation, localized peritonitis, and gangrene, without abscess (principal); N17.0 Acute kidney failure with tubular necrosis; K56.0 Paralytic ileus; I13.0 Hypertensive heart and chronic kidney disease with heart failure and stage 1 through stage 4 chronic kidney disease, or unspecified chronic kidney disease; N18.4 Chronic kidney disease, stage 4 (severe); I50.30 Unspecified diastolic (congestive) heart failure; I49.5 Sick sinus syndrome; N18.3 Chronic kidney disease, stage 3 (moderate); E78.5 Hyperlipidemia, unspecified; E03.9 Hypothyroidism, unspecified; I27.20 Pulmonary hypertension, unspecified; I48.0 Paroxysmal atrial fibrillation; R79.1 Abnormal coagulation profile; R33.9 Retention of urine, unspecified; N14.1 Nephropathy induced by other drugs, medicaments and biological substances; T50.8X5A Adverse effect of diagnostic agents, initial encounter; I50.82 Biventricular heart failure; E11.22 Type 2 diabetes mellitus with diabetic chronic kidney disease; Z79.01 Long term (current) use of anticoagulants; Z79.4 Long term (current) use of insulin; Z95.0 Presence of cardiac pacemaker; M10.9 Gout, unspecified; R09.02 Hypoxemia; R06.03 Acute respiratory distress
CPT/HCPCS: 36415; 71045; 74018; 74176; 74177; 76770; 80048; 80053; 80076; 81001; 82962; 83690; 83735; 83880; 85025; 85610; 85730; 86900; 86901; 87070; 87075; 87076; 87077; 87186; 87205; 87449; 88304; 94640; 94667; 94668; 97110; 97116; 97162; 97166; 97535; 99251; 99285; J7030; J7040; J7050; J7120; P9017; Q9967; A4216; C1760; G0463; J1940; J2405

== ENCOUNTER 2019-12-08 09:14 | Outpatient (RCR) | payer MEDICARE, OTHER, SELFPAY ==
[2019-11-23 11:23] VITALS: BMI 37.9
[2019-12-04 13:03] VITALS: BMI 38.8
[2019-12-08 10:23] LABS: International Normalized Ratio 2.8; Prothrombin Time (Protime)PT. 29.3 SECONDS (11.7-14.9)
[2019-12-08 10:48] LABS: Anion Gap 5 (5-15); BUN 27 mg/dL (7-18); BUN/Creat Ratio 19.9 RATIO (10-20); Calcium,Total 8.3 mg/dL (8.5-10.1); Chloride 106 mmol/L (98-107); Creatinine, Serum 1.36 mg/dL (0.55-1.02); EST Glomerular Filtration Rate 40 mL/min (>60); Est Glom Filt Rate - Afr Amer 48 mL/min (>60); Glucose 115 mg/dL (74-106); Sodium Level 139 mmol/L (136-145)
== END 2019-12-08 18:00 | disposition home or self-care (01) ==
LOC: LAB 09:14
PROVIDERS: Internal Medicine; Family Provider Student in an Organized Health Care Education/Training Program; PCP Student in an Organized Health Care Education/Training Program; Referring Provider Internal Medicine Cardiovascular Disease; Visit Provider Internal Medicine Cardiovascular Disease
DX: I48.0 Paroxysmal atrial fibrillation (principal); Z79.01 Long term (current) use of anticoagulants
CPT/HCPCS: 36415; 80048; 85610

== ENCOUNTER → 2020-01-30 10:04 | Outpatient (CLI) | payer MEDICARE, OTHER, SELFPAY ==
[2019-12-04 13:03] VITALS: BMI 38.8
--- NOTE | 2020-01-30 10:37 | RAD_ITS ---
STUDY: X-RAY CHEST REASON FOR EXAM: Female, 80 years old. SOB AND CONGESTION, SLIGHT COUGH PER PATIENT. HX OF PACEMAKER INSERTION LAST YEAR. TECHNIQUE: Single AP portable view of the chest. COMPARISON: Comparison is made with prior study dated November 26, 2019. FINDINGS: Since prior study, there now is evidence of small bilateral pleural effusions with bibasilar atelectasis and/or infiltrates worse on the left side. There is mild cardiac enlargement. [Annual chamber pacemaker. Normal mediastinum and jamila. Normal visualized pulmonary arteries. There is atherosclerotic calcification of the aortic arch with tortuosity. There is demineralization of the osseous structures. Normal visualized ribs, clavicles, and shoulders. There is no demonstrated abnormality of the visualized soft tissue structures of the upper abdomen. RAD/Chest PA and Lateral IMPRESSION: Interval development of small bilateral pleural effusions with bibasilar atelectasis and/or infiltrates worse on the left side. Electronically Signed: Alvaro Martinez, at 12:24 EDT , Service support ,
[2020-01-30 10:41] LABS: Absolute Neutrophil Count 7.8 X10^3/uL (2.0-7.7); Basophil# 0.05 X10^3/uL; Basophil% 0.5 % (0-1); Eosinophil# 0.41 X10^3/uL; Eosinophils% 3.8 % (0-5); Hemoglobin 11.1 g/dL (12.0-15.0); Lymphocyte % 16.8 % (19-41); Mean Corp Hgb Conc 32.6 g/dL (32-36); Mean Corpuscular Hgb 29.4 pg (27.0-32.0); Mean Corpuscular Volume 90.2 fL (81-99); Mean Platelet Vol. 10.8 fl (6.2-12.0); Monocyte# 0.64 X10^3/uL; NRBC Flagged by Analyzer 0 % (0-5); Neutrophil # 7.78 X10^3/uL (2.7-7.7); Neutrophil % 72.7 % (47-70); Platelet Count 307 K/mm3 (150-450); RBC Distribution Width CV 14.3 % (11.6-14.6); RBC Distribution Width SD 46.4 fl (35.1-43.9); Red Blood Count 3.77 M/mm3 (4.2-5.4); White Blood Count 10.7 K/mm3 (4.4-11.0)
[2020-01-30 10:48] LABS: Prothrombin Time (Protime)PT. 40.8 SECONDS (11.7-14.9)
[2020-01-30 10:50] LABS: International Normalized Ratio 4.3
[2020-01-30 10:52] LABS: Protein, Urine (Random) 247.2 mg/dL (<11.9); Protein:Creat Ratio 4430 mg/g CRE (0-200)
[2020-01-30 11:05] LABS: Albumin, Serum 2.9 g/dL (3.2-5.0); BUN 34 mg/dL (7-18); BUN/Creat Ratio 21.1 RATIO (10-20); Calcium,Total 8.7 mg/dL (8.5-10.1); Chloride 102 mmol/L (98-107); Creatinine, Serum 1.61 mg/dL (0.55-1.02); EST Glomerular Filtration Rate 33 mL/min (>60); Est Glom Filt Rate - Afr Amer 40 mL/min (>60); Glucose 139 mg/dL (74-106); Phosphorus 4.5 mg/dL (2.5-4.9); Potassium 4.3 mmol/L (3.5-5.1); Sodium Level 132 mmol/L (136-145)
[2020-01-30 11:09] LABS: Vitamin D,25 Hydroxy 38.9 ng/mL
[2020-01-30 11:11] LABS: PTHIN 114.9 pg/mL (18.4-80.1)
== END ==
PROVIDERS: PCP Student in an Organized Health Care Education/Training Program; Referring Provider Nurse Practitioner Family; Visit Provider Nurse Practitioner Family
DX: N18.3 Chronic kidney disease, stage 3 (moderate) (principal); E55.9 Vitamin D deficiency, unspecified; N25.81 Secondary hyperparathyroidism of renal origin; D63.1 Anemia in chronic kidney disease; I48.0 Paroxysmal atrial fibrillation; Z79.01 Long term (current) use of anticoagulants; R06.02 Shortness of breath; R60.9 Edema, unspecified; I12.9 Hypertensive chronic kidney disease with stage 1 through stage 4 chronic kidney disease, or unspecified chronic kidney disease
CPT/HCPCS: 36415; 71046; 80069; 82306; 82570; 83880; 83970; 84156; 85025; 85610

== ENCOUNTER → 2020-02-05 16:30 | Outpatient (CLI) | payer MEDICARE, OTHER, SELFPAY ==
[2019-12-04 13:03] VITALS: BMI 38.8
--- NOTE | 2020-02-05 16:32 | CT_ITS ---
STUDY: CT BRAIN WITHOUT CONTRAST REASON FOR EXAM: Female, 80 years old. GENERALIZED WEAKNESS, NOT FEELING WELL, FACIAL WEAKNESS, ACUTE INTRACTABE CHERRY, FEELS and quot;BURNING and quot; IN HER HEAD, ELEV PTH, HX-MICROADENOMA RADIATION DOSAGE (If Supplied By Facility): CTDIvol = ( 44.99 ) mGy, DLP = ( 779.24 ) mGycm TECHNIQUE: Transaxial CT imaging of the brain was performed without administration of intravenous contrast material. Individualized dose optimization techniques were used for this CT. COMPARISON: October 04, 2018 FINDINGS: Normal soft tissue structures. Normal calvarium. Calcification of cavernous carotids. Tiny hyperattenuated structure on the right possibly representing mild aneurysmal dilatation of the distal right internal carotid possibly due to vascular tortuosity. Normal size ventricles and extra-axial spaces for the patient''s age. Moderate periventricular white matter ischemic changes. Tiny hypoattenuated density in the left thalamus likely representing old lacunar infarct. Normal brainstem. Normal cerebellum. There is no intracranial hemorrhage. There are no findings of an acute ischemic infarction. Postsurgical changes of the orbits. Minor mucosal thickening in the left ethmoid air cells No significant change since prior exam CT/Brain/Head without Contrast IMPRESSION: Moderate periventricular white matter ischemic changes.. Tiny old lacunar infarct in left thalamus. Question mild aneurysmal dilatation of the distal right internal carotid versus vascular tortuosity unchanged since previous study. CTA or MRA would be useful for further evaluation if clinically indicated Electronically Signed: Harjinder Fry MD at 17:04 EDT , Service support ,
== END ==
PROVIDERS: PCP Student in an Organized Health Care Education/Training Program; Visit Provider Nurse Practitioner Family
DX: R53.1 Weakness (principal); Z86.73 Personal history of transient ischemic attack (TIA), and cerebral infarction without residual deficits; R29.810 Facial weakness
CPT/HCPCS: 36415; 70450; 85610

== ENCOUNTER 2020-02-05 16:56 | Outpatient (RCR) | payer MEDICARE, OTHER, SELFPAY ==
[2019-12-04 13:03] VITALS: BMI 38.8
[2020-02-05 17:23] LABS: International Normalized Ratio 3.3; Prothrombin Time (Protime)PT. 32.8 SECONDS (11.7-14.9)
== END 2020-02-05 18:00 | disposition home or self-care (01) ==
LOC: LAB 16:56
PROVIDERS: Family Provider Student in an Organized Health Care Education/Training Program; PCP Student in an Organized Health Care Education/Training Program; Referring Provider Internal Medicine Cardiovascular Disease; Visit Provider Internal Medicine Cardiovascular Disease
DX: I48.0 Paroxysmal atrial fibrillation (principal); Z79.01 Long term (current) use of anticoagulants
CPT/HCPCS: 36415; 85610

== ENCOUNTER 2020-02-18 10:49 | Outpatient (RCR) | payer MEDICARE, OTHER, SELFPAY ==
[2019-12-04 13:03] VITALS: BMI 38.8
[2020-02-18 11:36] LABS: International Normalized Ratio 2.6; Prothrombin Time (Protime)PT. 27.6 SECONDS (11.7-14.9)
[2020-02-18 11:50] LABS: Anion Gap 6 (5-15); BUN 51 mg/dL (7-18); BUN/Creat Ratio 27.7 RATIO (10-20); Calcium,Total 8.9 mg/dL (8.5-10.1); Chloride 99 mmol/L (98-107); Creatinine, Serum 1.84 mg/dL (0.55-1.02); EST Glomerular Filtration Rate 28 mL/min (>60); Est Glom Filt Rate - Afr Amer 34 mL/min (>60); Glucose 180 mg/dL (74-106); Potassium 4.3 mmol/L (3.5-5.1); Sodium Level 132 mmol/L (136-145)
== END 2020-02-18 18:00 | disposition home or self-care (01) ==
LOC: LAB 10:49
PROVIDERS: PCP Student in an Organized Health Care Education/Training Program; Referring Provider Internal Medicine Cardiovascular Disease; Visit Provider Internal Medicine Cardiovascular Disease
DX: I48.0 Paroxysmal atrial fibrillation (principal); Z79.01 Long term (current) use of anticoagulants
CPT/HCPCS: 36415; 80048; 85610

== ENCOUNTER 2020-03-10 09:48 | Outpatient (RCR) | payer MEDICARE, OTHER, SELFPAY ==
[2019-12-04 13:03] VITALS: BMI 38.8
[2020-03-01 14:52] VITALS: BMI 34.7
[2020-03-10 10:17] LABS: Hematocrit 37.7 % (37-54); Hemoglobin 11.7 g/dL (13.0-16.5); Mean Corpuscular Hgb 29.3 pg (27.0-32.0); Mean Corpuscular Volume 94.5 fL (80-94); Mean Platelet Vol. 10.5 fl (6.2-12.0); Platelet Count 304 K/mm3 (150-450); RBC Distribution Width CV 14.3 % (11.6-14.6); Red Blood Count 3.99 M/mm3 (4.6-6.2); White Blood Count 10.3 K/mm3 (4.4-11.0)
[2020-03-10 10:25] LABS: Protein, Urine (Random) 58.1 mg/dL (<11.9); Protein:Creat Ratio 2003 mg/g CRE (0-200)
[2020-03-10 10:42] LABS: International Normalized Ratio 2.4; Prothrombin Time (Protime)PT. 25.5 SECONDS (11.7-14.9)
[2020-03-10 10:44] LABS: PTHIN 129.4 pg/mL (18.4-80.1)
[2020-03-10 10:47] LABS: Vitamin D,25 Hydroxy 41.7 ng/mL
[2020-03-10 11:07] LABS: Albumin, Serum 3.3 g/dL (3.2-5.0); BUN 49 mg/dL (7-18); BUN/Creat Ratio 29.7 RATIO (10-20); Calcium,Total 9.2 mg/dL (8.5-10.1); Chloride 106 mmol/L (98-107); Creatinine, Serum 1.65 mg/dL (0.55-1.02); EST Glomerular Filtration Rate 32 mL/min (>60); Est Glom Filt Rate - Afr Amer 38 mL/min (>60); Glucose 105 mg/dL (74-106); Phosphorus 4.9 mg/dL (2.5-4.9); Potassium 4.9 mmol/L (3.5-5.1); Sodium Level 138 mmol/L (136-145)
== END 2020-03-10 18:00 | disposition home or self-care (01) ==
LOC: LAB 09:48
PROVIDERS: PCP Student in an Organized Health Care Education/Training Program; Referring Provider Internal Medicine Cardiovascular Disease; Visit Provider Internal Medicine Cardiovascular Disease
DX: I48.0 Paroxysmal atrial fibrillation (principal); Z79.01 Long term (current) use of anticoagulants; I12.9 Hypertensive chronic kidney disease with stage 1 through stage 4 chronic kidney disease, or unspecified chronic kidney disease; N18.3 Chronic kidney disease, stage 3 (moderate); D63.1 Anemia in chronic kidney disease; E55.9 Vitamin D deficiency, unspecified; N25.81 Secondary hyperparathyroidism of renal origin
CPT/HCPCS: 36415; 80069; 82306; 82570; 83970; 84156; 85027; 85610

== ENCOUNTER 2020-04-06 12:19 | Outpatient (RCR) | payer MEDICARE, OTHER, SELFPAY ==
[2020-03-01 14:52] VITALS: BMI 34.7
[2020-04-06 12:48] LABS: International Normalized Ratio 2.4; Prothrombin Time (Protime)PT. 25.5 SECONDS (11.7-14.9)
== END 2020-04-06 18:00 | disposition home or self-care (01) ==
LOC: LAB 12:19
PROVIDERS: PCP Student in an Organized Health Care Education/Training Program; Referring Provider Internal Medicine Cardiovascular Disease; Visit Provider Internal Medicine Cardiovascular Disease
DX: I48.0 Paroxysmal atrial fibrillation (principal); Z79.01 Long term (current) use of anticoagulants
CPT/HCPCS: 36415; 85610

== ENCOUNTER 2020-05-25 10:32 | Outpatient (RCR) | payer MEDICARE, OTHER, SELFPAY ==
[2020-03-01 14:52] VITALS: BMI 34.7
[2020-05-11 13:12] LABS: International Normalized Ratio 1.9; Prothrombin Time (Protime)PT. 21.3 SECONDS (11.7-14.9)
[2020-05-25 11:08] LABS: International Normalized Ratio 2.2; Prothrombin Time (Protime)PT. 24.1 SECONDS (11.7-14.9)
== END 2020-05-31 18:00 | disposition home or self-care (01) ==
LOC: LAB 10:32
PROVIDERS: PCP Student in an Organized Health Care Education/Training Program; Referring Provider Internal Medicine Cardiovascular Disease; Visit Provider Internal Medicine Cardiovascular Disease
DX: I48.0 Paroxysmal atrial fibrillation (principal); Z79.01 Long term (current) use of anticoagulants
CPT/HCPCS: 36415; 85610

== ENCOUNTER 2020-06-25 09:57 | Outpatient (RCR) | payer MEDICARE, OTHER, SELFPAY ==
[2020-03-01 14:52] VITALS: BMI 34.7
[2020-06-10 10:00] VITALS: BMI 34.5
[2020-06-25 10:48] LABS: International Normalized Ratio 2.7; Prothrombin Time (Protime)PT. 28.2 SECONDS (11.7-14.9)
[2020-06-25 11:11] LABS: AST(SGOT) 29 U/L (15-37); Alanine Aminotransfer ALT/SGPT 37 U/L (13-56); Albumin, Serum 3.3 g/dL (3.2-5.0); Alkaline Phosphatase 129 U/L (45-117); Bilirubin, Direct 0.12 mg/dL (0.00-0.30); Cholesterol 166 mg/dL (200); Globulin 4.3 g/dL (2.2-4.2); High Density Lipoprotein 51 mg/dL; Protein, Total 7.6 g/dL (6.4-8.2); Triglycerides 118 mg/dL; Very Low Density Lipoprotein 24 mg/dL (5-40)
== END 2020-06-25 18:00 | disposition home or self-care (01) ==
LOC: LAB 09:57
PROVIDERS: Physician Assistant Medical; PCP Student in an Organized Health Care Education/Training Program; Referring Provider Internal Medicine Cardiovascular Disease; Visit Provider Internal Medicine Cardiovascular Disease
DX: I48.0 Paroxysmal atrial fibrillation (principal); Z79.01 Long term (current) use of anticoagulants; E78.5 Hyperlipidemia, unspecified; I10 Essential (primary) hypertension
CPT/HCPCS: 36415; 80061; 80076; 85610

== ENCOUNTER 2020-07-26 13:21 | Outpatient (RCR) | payer MEDICARE, OTHER, SELFPAY ==
[2020-06-10 10:00] VITALS: BMI 34.5
[2020-07-26 14:13] LABS: Prothrombin Time (Protime)PT. 22.2 SECONDS (11.7-14.9)
== END 2020-07-26 18:00 | disposition home or self-care (01) ==
LOC: LAB 13:21
PROVIDERS: PCP Student in an Organized Health Care Education/Training Program; Referring Provider Internal Medicine Cardiovascular Disease; Visit Provider Internal Medicine Cardiovascular Disease
DX: I48.0 Paroxysmal atrial fibrillation (principal); Z79.01 Long term (current) use of anticoagulants
CPT/HCPCS: 36415; 85610

== ENCOUNTER 2020-08-27 14:03 | Outpatient (RCR) | payer MEDICARE, OTHER, SELFPAY ==
[2020-06-10 10:00] VITALS: BMI 34.5
[2020-08-27 15:16] LABS: International Normalized Ratio 2.4; Prothrombin Time (Protime)PT. 25.6 SECONDS (11.7-14.9)
== END 2020-08-27 18:00 | disposition home or self-care (01) ==
LOC: LAB 14:03
PROVIDERS: PCP Student in an Organized Health Care Education/Training Program; Referring Provider Internal Medicine Cardiovascular Disease; Visit Provider Internal Medicine Cardiovascular Disease
DX: I48.0 Paroxysmal atrial fibrillation (principal); Z79.01 Long term (current) use of anticoagulants
CPT/HCPCS: 36415; 85610

== ENCOUNTER 2020-09-28 13:18 | Outpatient (RCR) | payer MEDICARE, OTHER, SELFPAY ==
[2020-06-10 10:00] VITALS: BMI 34.5
[2020-09-28 13:56] LABS: International Normalized Ratio 2.1; Prothrombin Time (Protime)PT. 22.6 SECONDS (11.7-14.9)
== END 2020-09-28 18:00 | disposition home or self-care (01) ==
LOC: LAB 13:18
PROVIDERS: PCP Student in an Organized Health Care Education/Training Program; Referring Provider Internal Medicine Cardiovascular Disease; Visit Provider Internal Medicine Cardiovascular Disease
DX: I48.0 Paroxysmal atrial fibrillation (principal); Z79.01 Long term (current) use of anticoagulants
CPT/HCPCS: 36415; 85610

== ENCOUNTER 2020-10-27 08:04 | Outpatient (RCR) | payer MEDICARE, OTHER, SELFPAY ==
[2020-06-10 10:00] VITALS: BMI 34.5
[2020-10-27 08:43] LABS: International Normalized Ratio 1.9; Prothrombin Time (Protime)PT. 21.2 SECONDS (11.7-14.9)
== END 2020-10-27 18:00 | disposition home or self-care (01) ==
LOC: LAB 08:04
PROVIDERS: PCP Student in an Organized Health Care Education/Training Program; Referring Provider Internal Medicine Cardiovascular Disease; Visit Provider Internal Medicine Cardiovascular Disease
DX: I48.0 Paroxysmal atrial fibrillation (principal); Z79.01 Long term (current) use of anticoagulants
CPT/HCPCS: 36415; 85610

== ENCOUNTER 2020-11-18 13:49 | Outpatient (RCR) | payer MEDICARE, OTHER, SELFPAY ==
[2020-06-10 10:00] VITALS: BMI 34.5
[2020-11-11 13:21] LABS: International Normalized Ratio 1.8; Prothrombin Time (Protime)PT. 20.6 SECONDS (11.7-14.9)
[2020-11-18 16:17] LABS: International Normalized Ratio 2.4; Prothrombin Time (Protime)PT. 25.9 SECONDS (11.7-14.9)
== END 2020-11-18 18:00 | disposition home or self-care (01) ==
LOC: LAB 13:49
PROVIDERS: PCP Student in an Organized Health Care Education/Training Program; Referring Provider Internal Medicine Cardiovascular Disease; Visit Provider Internal Medicine Cardiovascular Disease
DX: I48.0 Paroxysmal atrial fibrillation (principal); Z79.01 Long term (current) use of anticoagulants
CPT/HCPCS: 36415; 85610

== ENCOUNTER 2020-12-02 10:56 | Outpatient (RCR) | payer MEDICARE, OTHER, SELFPAY ==
[2020-06-10 10:00] VITALS: BMI 34.5
[2020-12-02 11:56] LABS: International Normalized Ratio 2.3
== END 2020-12-02 18:00 | disposition home or self-care (01) ==
LOC: LAB 10:56
PROVIDERS: PCP Student in an Organized Health Care Education/Training Program; Referring Provider Internal Medicine Cardiovascular Disease; Visit Provider Internal Medicine Cardiovascular Disease
DX: I48.0 Paroxysmal atrial fibrillation (principal); Z79.01 Long term (current) use of anticoagulants
CPT/HCPCS: 36415; 85610

== ENCOUNTER 2021-01-04 12:59 | Outpatient (RCR) | payer MEDICARE, OTHER, SELFPAY ==
[2020-06-10 10:00] VITALS: BMI 34.5
[2021-01-04 14:07] LABS: International Normalized Ratio 2.1
== END 2021-01-04 18:00 | disposition home or self-care (01) ==
LOC: LAB 12:59
PROVIDERS: PCP Student in an Organized Health Care Education/Training Program; Referring Provider Internal Medicine Cardiovascular Disease; Visit Provider Internal Medicine Cardiovascular Disease
DX: I48.0 Paroxysmal atrial fibrillation (principal); Z79.01 Long term (current) use of anticoagulants
CPT/HCPCS: 36415; 85610

== ENCOUNTER → 2021-02-15 11:05 | Outpatient (CLI) | payer MEDICARE, OTHER, SELFPAY ==
[2020-06-10 10:00] VITALS: BMI 34.5
[2021-02-15 11:56] LABS: Protein, Urine (Random) 110.1 mg/dL (<11.9); Protein:Creat Ratio 3238 mg/g CRE (0-200)
[2021-02-15 12:47] LABS: Anion Gap 7 (5-15); BUN 56 mg/dL (7-18); Calcium,Total 8.7 mg/dL (8.5-10.1); Chloride 105 mmol/L (98-107); Creatinine, Serum 1.93 mg/dL (0.55-1.02); EST Glomerular Filtration Rate 26 mL/min (>60); Est Glom Filt Rate - Afr Amer 32 mL/min (>60); Glucose 122 mg/dL (74-106); Potassium 4.3 mmol/L (3.5-5.1); Sodium Level 139 mmol/L (136-145)
== END ==
PROVIDERS: PCP Student in an Organized Health Care Education/Training Program; Referring Provider Internal Medicine Nephrology; Visit Provider Internal Medicine Nephrology
DX: N18.30 Chronic kidney disease, stage 3 unspecified (principal)
CPT/HCPCS: 36415; 80048; 82570; 84156

== ENCOUNTER 2021-02-21 13:22 | Outpatient (RCR) | payer MEDICARE, OTHER, SELFPAY ==
[2020-06-10 10:00] VITALS: BMI 34.5
[2021-02-01 11:26] LABS: International Normalized Ratio 1.9; Prothrombin Time (Protime)PT. 20.6 SECONDS (11.7-14.9)
[2021-02-01 11:48] LABS: AST(SGOT) 24 U/L (15-37); Alanine Aminotransfer ALT/SGPT 32 U/L (13-56); Alkaline Phosphatase 125 U/L (45-117); Cholesterol 156 mg/dL (200); Globulin 3.9 g/dL (2.2-4.2); High Density Lipoprotein 41 mg/dL; Protein, Total 6.9 g/dL (6.4-8.2); Triglycerides 158 mg/dL; Very Low Density Lipoprotein 32 mg/dL (5-40)
[2021-02-21 15:06] LABS: International Normalized Ratio 2.2; Prothrombin Time (Protime)PT. 23.4 SECONDS (11.7-14.9)
== END 2021-02-21 18:00 | disposition home or self-care (01) ==
LOC: LAB 13:22
PROVIDERS: PCP Student in an Organized Health Care Education/Training Program; Referring Provider Internal Medicine Cardiovascular Disease; Visit Provider Internal Medicine Cardiovascular Disease
DX: I48.0 Paroxysmal atrial fibrillation (principal); Z79.01 Long term (current) use of anticoagulants; E78.00 Pure hypercholesterolemia, unspecified; E78.5 Hyperlipidemia, unspecified
CPT/HCPCS: 36415; 80061; 80076; 85610

== ENCOUNTER 2021-03-21 12:50 | Outpatient (RCR) | payer MEDICARE, OTHER, SELFPAY ==
[2020-06-10 10:00] VITALS: BMI 34.5
[2021-03-21 13:48] LABS: International Normalized Ratio 2.1; Prothrombin Time (Protime)PT. 22.5 SECONDS (11.7-14.9)
== END 2021-03-21 18:00 | disposition home or self-care (01) ==
LOC: LAB 12:50
PROVIDERS: PCP Student in an Organized Health Care Education/Training Program; Referring Provider Internal Medicine Cardiovascular Disease; Visit Provider Internal Medicine Cardiovascular Disease
DX: I48.0 Paroxysmal atrial fibrillation (principal); Z79.01 Long term (current) use of anticoagulants
CPT/HCPCS: 36415; 85610

== ENCOUNTER 2021-04-25 15:55 | Outpatient (RCR) | payer MEDICARE, OTHER, SELFPAY ==
[2020-06-10 10:00] VITALS: BMI 34.5
[2021-04-25 14:56] VITALS: BMI 36.5
[2021-04-25 16:21] LABS: International Normalized Ratio 2.2; Prothrombin Time (Protime)PT. 23.5 SECONDS (11.7-14.9)
== END 2021-04-25 18:00 | disposition home or self-care (01) ==
LOC: LAB 15:55
PROVIDERS: PCP Student in an Organized Health Care Education/Training Program; Referring Provider Internal Medicine Cardiovascular Disease; Visit Provider Internal Medicine Cardiovascular Disease
DX: I48.0 Paroxysmal atrial fibrillation (principal); Z79.01 Long term (current) use of anticoagulants
CPT/HCPCS: 36415; 85610

== ENCOUNTER → 2021-05-11 10:55 | Outpatient (CLI) | payer MEDICARE, OTHER, SELFPAY ==
[2021-04-25 14:56] VITALS: BMI 36.5
--- NOTE | 2021-05-11 10:56 | ECHOD_ITS ---
Reason For Study: PAF Procedure This was a 2D Doppler, Color Flow transthoracic echocardiogram. The exam was of adequate technical quality. Exam performed in department. Left Ventricle Normal LV size. Sigmoid septum. Left ventricular systolic function is normal. The estimated ejection fraction is 55 %. Unable to assess diastolic dysfunction. Apical wall motion abnormality may reflect pacemaker activation. Right Ventricle Normal RV size. ICD or pacer leads identified within the right ventricle. Normal systolic function. Atria The left atrium is mildly enlarged. Normal right atrium. ICD or pacer leads identified within the right atrium. No doppler evidence for ASD. Mitral Valve There is moderate mitral annular calcification. Extension of the mitral annular calcification onto the base of the posterior mitral valve leaflet. The mitral papillary muscle appears thickened and/or calcified. Mild-Moderate (1-2+) mitral valve insufficiency. Tricuspid Valve Normal tricuspid valve. Mild to moderate (1-2+) tricuspid valve insufficiency. Right ventricular systolic pressure estimated to be 31 mmHg. Aortic Valve Trisinus/trileaflet aortic valve. Mild diffuse aortic valve thickening. Mild diffuse aortic valve calcification. Pulmonic Valve The pulmonic valve is not well visualized. Great Vessels Mildly dilated aortic root. Pericardium/Pleural No pericardial effusion. MMode/2D Measurements & Calculations LVIDd: 4.1 cm IVSd: 1.6 cm Ao root diam: 4.0 cm LVIDs: 3.0 cm LVPWd: 1.1 cm LA dimension: 4.7 cm FS: 27.6 % LAV(MOD-bp): 66.0 ml LA A4 area: 21.4 cm2 RA A4 area: 14.8 cm2 LAV(MOD-bp) Indexed: 34.6 ml/m2 LAV(MOD-sp2): 66.2 ml LAV(MOD-sp4): 65.4 ml Time Measurements MV dec time: 0.20 sec Doppler Measurements & Calculations MV E max vineet: 145.7 cm/sec Ao V2 max: 149.3 cm/sec LV V1 max: 104.7 cm/sec Ao max P.9 mmHg LV V1 max P.4 mmHg PA V2 max: 92.0 cm/sec TR max vineet: 263.4 cm/sec TR max P.7 mmHg ECHO/Echo Complete Interpretation Summary Left ventricular systolic function is normal. The estimated ejection fraction is 55 %. Apical wall motion abnormality may reflect pacemaker activation. Sigmoid septum. The left atrium is mildly enlarged. There is moderate mitral annular calcification. Extension of the mitral annular calcification onto the base of the posterior mi tral valve leaflet. The mitral papillary muscle appears thickened and/or calcified. Mild-Moderate (1-2+) mitral valve insufficiency. Mild to moderate (1-2+) tricuspid valve insufficiency. Mild diffuse aortic valve thickening. Mild diffuse aortic valve calcification. Mildly dilated aortic root. Right ventricular systolic pressure estimated to be 31 mmHg. Unable to assess diastolic dysfunction. ICD or pacer leads identified within the right atrium ICD or pacer leads identified within the right ventricle. Ordering Physician: Adelfo Thompson Referring Physician: Marcelino Moon Performed By: Roque Azar RCS
== END ==
PROVIDERS: PCP Student in an Organized Health Care Education/Training Program; Referring Provider Internal Medicine Cardiovascular Disease; Visit Provider Internal Medicine Cardiovascular Disease
DX: I48.0 Paroxysmal atrial fibrillation (principal); I49.5 Sick sinus syndrome; I10 Essential (primary) hypertension; E78.5 Hyperlipidemia, unspecified; Z95.0 Presence of cardiac pacemaker
CPT/HCPCS: 93306

== ENCOUNTER 2021-05-27 10:43 | Outpatient (RCR) | payer MEDICARE, OTHER, SELFPAY ==
[2021-05-27 12:31] LABS: International Normalized Ratio 2.7; Prothrombin Time (Protime)PT. 27.5 SECONDS (11.7-14.9)
== END 2021-05-27 18:00 | disposition home or self-care (01) ==
LOC: LAB 10:43
PROVIDERS: PCP Student in an Organized Health Care Education/Training Program; Referring Provider Internal Medicine Cardiovascular Disease; Visit Provider Internal Medicine Cardiovascular Disease
DX: I48.0 Paroxysmal atrial fibrillation (principal); Z79.01 Long term (current) use of anticoagulants
CPT/HCPCS: 36415; 85610

== ENCOUNTER 2021-06-27 10:15 | Outpatient (RCR) | payer MEDICARE, OTHER, SELFPAY ==
[2021-05-31 19:47] VITALS: BMI 36.5
[2021-06-27 11:24] LABS: International Normalized Ratio 2.4; Prothrombin Time (Protime)PT. 25.4 SECONDS (11.7-14.9)
== END 2021-06-27 18:00 | disposition home or self-care (01) ==
LOC: LAB 10:15
PROVIDERS: PCP Student in an Organized Health Care Education/Training Program; Referring Provider Internal Medicine Cardiovascular Disease; Visit Provider Internal Medicine Cardiovascular Disease
DX: I48.0 Paroxysmal atrial fibrillation (principal); Z79.01 Long term (current) use of anticoagulants
CPT/HCPCS: 36415; 85610

== ENCOUNTER 2021-07-25 10:37 | Outpatient (RCR) | payer MEDICARE, OTHER, SELFPAY ==
[2021-06-30 20:02] VITALS: BMI 36.5
[2021-07-25 11:34] LABS: Prothrombin Time (Protime)PT. 22.1 SECONDS (11.7-14.9)
[2021-07-25 11:39] LABS: Protein:Creat Ratio 1791 mg/g CRE (0-200)
[2021-07-25 11:54] LABS: Anion Gap 7 (5-15); BUN 64 mg/dL (7-18); BUN/Creat Ratio 27.7 RATIO (10-20); Calcium,Total 9.1 mg/dL (8.5-10.1); Chloride 103 mmol/L (98-107); Creatinine, Serum 2.31 mg/dL (0.55-1.02); EST Glomerular Filtration Rate 21 mL/min (>60); Est Glom Filt Rate - Afr Amer 26 mL/min (>60); Glucose 165 mg/dL (74-106); Potassium 4.2 mmol/L (3.5-5.1); Sodium Level 137 mmol/L (136-145)
== END 2021-07-31 03:22 | disposition home or self-care (01) ==
LOC: LAB 10:37
PROVIDERS: PCP Student in an Organized Health Care Education/Training Program; Referring Provider Internal Medicine Cardiovascular Disease; Visit Provider Internal Medicine Cardiovascular Disease
DX: I48.0 Paroxysmal atrial fibrillation (principal); Z79.01 Long term (current) use of anticoagulants
CPT/HCPCS: 36415; 80048; 82570; 84156; 85610

== ENCOUNTER 2021-08-30 10:43 | Outpatient (RCR) | payer MEDICARE, OTHER, SELFPAY ==
[2021-07-31 03:22] VITALS: BMI 36.5
[2021-08-30 11:21] LABS: International Normalized Ratio 2.6; Prothrombin Time (Protime)PT. 27.2 SECONDS (11.7-14.9)
[2021-08-30 11:29] LABS: AST(SGOT) 24 U/L (15-37); Alanine Aminotransfer ALT/SGPT 33 U/L (13-56); Albumin, Serum 2.9 g/dL (3.2-5.0); Alkaline Phosphatase 114 U/L (45-117); Bilirubin, Direct 0.12 mg/dL (0.00-0.30); Cholesterol 123 mg/dL (200); Globulin 4.5 g/dL (2.2-4.2); High Density Lipoprotein 39 mg/dL; Protein, Total 7.4 g/dL (6.4-8.2); Triglycerides 111 mg/dL; Very Low Density Lipoprotein 22 mg/dL (5-40)
== END 2021-08-30 18:00 | disposition home or self-care (01) ==
LOC: LAB 10:43
PROVIDERS: PCP Student in an Organized Health Care Education/Training Program; Referring Provider Internal Medicine Cardiovascular Disease; Visit Provider Internal Medicine Cardiovascular Disease
DX: I48.0 Paroxysmal atrial fibrillation (principal); Z79.01 Long term (current) use of anticoagulants; E78.5 Hyperlipidemia, unspecified; E78.00 Pure hypercholesterolemia, unspecified
CPT/HCPCS: 36415; 80061; 80076; 85610

== ENCOUNTER 2021-09-29 14:24 | Outpatient (RCR) | payer MEDICARE, OTHER, SELFPAY ==
[2021-08-31 02:02] VITALS: BMI 36.5
[2021-09-29 16:04] LABS: International Normalized Ratio 2.1; Prothrombin Time (Protime)PT. 22.7 SECONDS (11.7-14.9)
== END 2021-10-01 18:00 | disposition home or self-care (01) ==
LOC: LAB 14:24
PROVIDERS: PCP Student in an Organized Health Care Education/Training Program; Referring Provider Internal Medicine Cardiovascular Disease; Visit Provider Internal Medicine Cardiovascular Disease
DX: I48.0 Paroxysmal atrial fibrillation (principal); Z79.01 Long term (current) use of anticoagulants
CPT/HCPCS: 36415; 85610

== ENCOUNTER 2021-10-27 11:38 | Outpatient (RCR) | payer MEDICARE, OTHER, SELFPAY ==
[2021-10-02 03:38] VITALS: BMI 36.5
[2021-10-27 12:23] LABS: Absolute Lymphocyte Count 2.68 X10^3/uL (0.83-4.51); Absolute Neutrophil Count 7.5 X10^3/uL (2.0-7.7); Basophil# 0.08 X10^3/uL; Basophil% 0.7 % (0-1); Eosinophil# 0.67 X10^3/uL; Eosinophils% 5.6 % (0-5); Hematocrit 41.6 % (37-47); Hemoglobin 13.4 g/dL (12.0-15.0); Lymphocyte # 2.68 X10^3/ul (0.83-4.51); Lymphocyte % 22.3 % (19-41); Mean Corp Hgb Conc 32.2 g/dL (32-36); Mean Corpuscular Hgb 30.3 pg (27.0-32.0); Mean Corpuscular Volume 94.1 fL (81-99); Mean Platelet Vol. 11.4 fl (6.2-12.0); Monocyte# 1.07 X10^3/uL; Monocyte% 8.9 % (0-10); NRBC Flagged by Analyzer 0 % (0-5); Neutrophil # 7.51 X10^3/uL (2.7-7.7); Neutrophil % 62.3 % (47-70); Platelet Count 243 K/mm3 (150-450); RBC Distribution Width CV 14.3 % (11.6-14.6); RBC Distribution Width SD 49.2 fl (35.1-43.9); Red Blood Count 4.42 M/mm3 (4.2-5.4)
[2021-10-27 12:26] LABS: International Normalized Ratio 1.8; Prothrombin Time (Protime)PT. 20.1 SECONDS (11.7-14.9)
[2021-10-27 13:23] LABS: Anion Gap 6 (5-15); BUN 59 mg/dL (7-18); BUN/Creat Ratio 27.6 RATIO (10-20); Calcium,Total 9.2 mg/dL (8.5-10.1); Chloride 101 mmol/L (98-107); Creatinine, Serum 2.14 mg/dL (0.55-1.02); EST Glomerular Filtration Rate 23 mL/min (>60); Est Glom Filt Rate - Afr Amer 28 mL/min (>60); Glucose 108 mg/dL (74-106); Potassium 4.7 mmol/L (3.5-5.1); Sodium Level 134 mmol/L (136-145); T4 Free Direct 1.47 ng/dL (0.76-1.46); Thyroid Stim Hormone (TSH) 0.82 uIU/mL (0.358-3.74)
[2021-10-27 14:11] LABS: Protein, Urine (Random) 42.8 mg/dL (<11.9); Protein:Creat Ratio 1385 mg/g CRE (0-200)
== END 2021-10-31 18:00 | disposition home or self-care (01) ==
LOC: LAB 11:38
PROVIDERS: Nurse Practitioner Family; PCP Student in an Organized Health Care Education/Training Program; Referring Provider Internal Medicine Cardiovascular Disease; Visit Provider Internal Medicine Cardiovascular Disease
DX: I48.0 Paroxysmal atrial fibrillation (principal); Z79.01 Long term (current) use of anticoagulants
CPT/HCPCS: 36415; 80048; 82570; 83880; 84156; 84439; 84443; 85025; 85610

== ENCOUNTER 2021-11-09 11:03 | Outpatient (RCR) | payer MEDICARE, OTHER, SELFPAY ==
[2021-10-31 22:13] VITALS: BMI 36.5
[2021-11-09 12:12] LABS: International Normalized Ratio 2.7
== END 2021-11-09 18:00 | disposition home or self-care (01) ==
LOC: LAB 11:03
PROVIDERS: PCP Student in an Organized Health Care Education/Training Program; Referring Provider Internal Medicine Cardiovascular Disease; Visit Provider Internal Medicine Cardiovascular Disease
DX: I48.0 Paroxysmal atrial fibrillation (principal); Z79.01 Long term (current) use of anticoagulants
CPT/HCPCS: 36415; 85610

== ENCOUNTER 2021-11-21 18:35 | Emergency (ER) | payer MEDICARE, OTHER, SELFPAY ==
[2021-11-21 18:37] VITALS: BP 238/73; PULSE 70; RESP 17; TEMP 36.8; O2SAT 94; BMI 36.3
--- NOTE | 2021-11-21 19:04 | CT_ITS ---
STUDY: CT Abdomen And Pelvis W/O Contrast Injection 11/21/2021 7:54 PM REASON FOR EXAM: Female, 81 years old. Abdominal pain abd wall hematoma Individualized dose optimization techniques were used for this CT. COMPARISON: 11.27.19. TECHNIQUE: CT Abdomen And Pelvis W/O Contrast Injection FINDINGS: There are atherosclerotic calcifications of visualized coronary arteries. The visualized portions of the heart are within normal limits. There is hepatomegaly with diffuse hepatic enlargement. There are multiple gallstones. Normal spleen. Normal pancreas. Normal bilateral adrenal glands. No acute findings of the right kidney. No acute findings of the left kidney. Normal visualized stomach. Normal small intestine. There are multiple colonic diverticula consistent with diverticulosis. There is non-visualization of the appendix. There are calcifications of the abdominal aorta. This is consistent for atherosclerotic disease. There is no abdominal aortic aneurysm. Normal inferior vena cava. Subcentimeter mesenteric lymph nodes. 28 mm mesenteric cyst is slightly to the right of midline Normal urinary bladder. The uterus is lobulated in contour. There are multiple partially calcified masses in the uterus. This is consistent for a fibroid/ myomatous uterus. Multiple anterior abdominal wall subcutaneous hematomas. These measure up to 23 mm. There are diffuse degenerative changes of the visualized lumbar spine. IMPRESSION: (NOT LISTED IN ORDER OF SIGNIFICANCE) Multiple anterior abdominal wall subcutaneous hematomas. There are multiple colonic diverticula consistent with diverticulosis. There are multiple gallstones. There is hepatomegaly with diffuse hepatic enlargement. 28 mm mesenteric cyst is slightly to the right of midline. This is slightly larger than the prior study. Other findings as above. Electronically Signed: Oziel Fuller MD at 19:59 EST , CT/Abdomen/Pelvis without Cont
--- NOTE | 2021-11-21 19:06 | EX.ED.DYSGE1 ---
HPI History of Present Illness Chief Complaint: Other, Pain/Inj Detail of Chief Complaint: Abdominal wall hematoma Informant: patient Onset/Context/Timing Onset: Yesterday Current Severity: Moderate Maximum Severity: Moderate Narrative Narrative: Patient presents with hematoma to the abdominal wall. She is currently on Coumadin and gives herself insulin injections. Patient states yesterday she noted a small coin-sized bruise. When she woke this morning it was significantly larger, firm and painful. [facility] Medical History (Updated 11/21/21 @ 20:[address] Tisha Leung MD) Garcia's palsy Bradycardia Cerebrovascular disease CKD (chronic kidney disease) stage 2, GFR 60-89 ml/min Diabetes mellitus Dyslipidemia Essential hypertension Fatty liver Gout HLD (hyperlipidemia) HTN (hypertension) Hypothyroid Osteoporosis Ovarian cyst, left Paroxysmal atrial fibrillation Pre-syncope Sick sinus syndrome Sinus pause Home Medications albuterol sulfate 2 puff INHALATION Q4H PRN PRN 08/10/15 [History Last Taken 10/02/18] allopurinol 300 mg PO DAILY 08/10/15 [History Last Taken 11/22/19 09:00] aspirin 81 mg PO DAILY@0800 08/10/15 [History Last Taken 11/22/19 08:00] multivitamin with minerals 1 tab PO DAILY tab 03/04/19 [History Last Taken 11/22/19 13:00] folic acid 1 mg tablet 1 mg PO DAILY 12/04/19 [History Last Taken Unknown] pravastatin 40 mg tablet See Rx Instructions .ROUTE .COMPLEX #90 tablet 01/01/21 [Rx Last Taken Unknown] metoprolol succinate 25 mg tablet,extended release 24 hr See Rx Instructions .ROUTE .COMPLEX #135 tab 02/22/21 [Rx Last Taken Unknown] losartan 50 mg tablet 50 mg PO BID #180 tab 03/14/21 [Rx Last Taken Unknown] canagliflozin 100 mg tablet 100 mg PO DAILY 04/25/21 [History Last Taken Unknown] cholecalciferol (vitamin D3) 25 mcg (1,000 unit) tablet 1,000 unit PO BID tab 04/25/21 [History Last Taken Unknown] flecainide 100 mg tablet 100 mg PO BID #180 tab 04/25/21 [Rx Last Taken Unknown] insulin glargine 100 unit/mL subcutaneous solution 17 unit SUBCUT DAILY ml 04/25/21 [History Last Taken Unknown] insulin lispro 100 unit/mL subcutaneous solution 10 unit SUBCUT TIDCM ml 04/25/21 [History Last Taken Unknown] levothyroxine 175 mcg tablet 175 mcg PO DAILY 04/25/21 [History Last Taken Unknown] triamcinolone acetonide 0.5 % topical cream 1 applic TOPICAL BID 04/25/21 [History Last Taken Unknown] amlodipine 10 mg tablet 10 mg PO DAILY #90 tab 06/14/21 [Rx Last Taken Unknown] warfarin 4 mg tablet See Rx Instructions .ROUTE .COMPLEX #90 tab 08/11/21 [Rx Last Taken Unknown] furosemide 40 mg tablet 40 mg PO .COMPLEX PRN #92 tab 10/27/21 [Rx Last Taken Unknown] Allergy/AdvReac Type Severity Reaction Status Date / Time atorvastatin calcium AdvReac cough Verified 11/21/21 18:37 [From Lipitor] enalapril maleate AdvReac cough Verified 11/21/21 18:37 [From Vasotec] enalaprilat dihydrate AdvReac cough Verified 11/21/21 18:37 [From Vasotec] Family History Mother CVA (cerebral vascular accident) Hypertension Father Heart disease Myocardial infarction Surgical History Cardiac pacemaker in situ (10/28/18) History of appendectomy History of tubal ligation S/P laparoscopic appendectomy Social History Smoking Status: Never smoker alcohol intake: never substance use type: does not use caffeine: Yes Type: coffee Number of servings: 2 ROS ROS ED Constitutional Constitutional ED: Denies chills or fever(s) Eyes Eyes: Denies change in vision ENT ENT ED: Denies sore throat Cardiovascular Cardiovascular: Denies chest pain Respiratory/Chest Respiratory/Chest: Denies cough or dyspnea Gastrointestinal Gastrointestinal: Reports abdominal pain; Denies nausea or vomiting Musculoskeletal Musculoskeletal: Denies back pain Integumentary Denies rash Neurologic Neurologic: Denies headache(s) Allergic/Immunologic Allergic/Immunologic ED: Denies urticaria EXAM Physical Exam Const Vital Signs: 11/21/21 18:37 11/21/21 19:07 11/21/21 19:10 Temperature 98.2 F Temperature Source Temporal Pulse Rate 70 Respiratory Rate 17 Respiratory Effort Normal Non-Labored Respiratory Pattern Normal Blood Pressure 238/73 H 213/70 H Blood Pressure Mean 128 117 Pulse Ox 94 Oxygen Delivery Method Room Air 11/21/21 19:45 11/21/21 20:13 Temperature Temperature Source Pulse Rate 67 65 Respiratory Rate 18 15 Respiratory Effort Respiratory Pattern Blood Pressure 162/106 H 178/61 H Blood Pressure Mean 124 100 Pulse Ox 94 93 Oxygen Delivery Method Room Air Room Air Positive well nourished and well developed General Appearance ED: well developed HEENT Reports moist mucous membranes Eyes PERRL and EOMs intact bilaterally Neck supple Chest Wall inspection of chest normal and palpation of chest normal Resp normal respiratory effort and clear to auscultation bilaterally Cardio regular rate and regular rhythm GI GI Narrative: 7 x 9 cm hematoma to the mid right abdominal wall. Palpation: soft Extremity normal to inspection Neuro oriented x3 Sensorium / Orientation: alert Psych mental status grossly normal MDM MDM MDM Narrative Medical decision making narrative: Lab work obtained along with CT scan of the flank. Nursing staff asked to obtain blood pressure in each arm. Lab Data Attestation: I reviewed the patient's lab results. Labs: Laboratory Results - last 24 hr 11/21/21 11/21/21 11/21/21 19:10 19:10 19:10 WBC 10.9 RBC 3.97 L Hgb 12.4 Hct 37.3 MCV 94.0 MCH 31.2 MCHC 33.2 RDW Std Deviation 49.1 H RDW Coeff of Ashley 14.4 Plt Count 231 MPV 11.2 Immature Gran % (Auto) 0.200 Neut % (Auto) 67.0 Lymph % (Auto) 19.6 Upson % (Auto) 8.3 Eos % (Auto) 4.4 Baso % (Auto) 0.5 Absolute Neuts (auto) 7.3 Absolute Lymphs (auto) 2.14 Nucleated RBC % 0 PT 26.1 H INR 2.5 Sodium 138 Potassium 4.1 Chloride 106 Carbon Dioxide 27.0 Anion Gap 5 BUN 45 H Creatinine 1.92 H Estim Creat Clear Calc 17.87 Est GFR (MDRD) Af Amer 32 L Est GFR (MDRD) Non-Af 27 L BUN/Creatinine Ratio 23.4 H Glucose 134 H Calcium 8.4 L Radiography Diagnostic Testing: Clinical Impression(s) from Imaging Studies Abdomen/Pelvis CT 11/21/21 19:04 IMPRESSION: (NOT LISTED IN ORDER OF SIGNIFICANCE) Multiple anterior abdominal wall subcutaneous hematomas. There are multiple colonic diverticula consistent with diverticulosis. There are multiple gallstones. There is hepatomegaly with diffuse hepatic enlargement. 28 mm mesenteric cyst is slightly to the right of midline. This is slightly larger than the prior study. Treatment and Re-Evaluation Comments:: Patient blood pressure did remain elevated over 200 systolic when rechecked by nursing staff. She was given 10 mg of IV labetalol. On repeat exam patient resting comfortably. Systolic pressure 170s. Lab work unremarkable with a hemoglobin of 12.4. INR is therapeutic at 2.5. Creatinine elevated at 1.92 which appears consistent with her baseline. CT scan reveals multiple anterior abdominal wall SQ hematomas. This was discussed with the patient. I do not see any deep extension of the bleeding. The area that brought her in seems to be self-contained. Patient is comfortable with monitoring her symptoms at home. I did ask her to track her blood pressure and follow-up with her primary care physician. Discharge Plan Triage Chief Complaint: Other, Pain/Inj ED Provider: Tisha Leung Dx/Rx/DC Orders Clinical Impression: Subcutaneous hematoma, Hypertension Instructions: ED Hematoma, ED Hypertension, Established Prescriptions: No Action folic acid 1 mg tablet 1 mg PO DAILY RF: 0 multivitamin with minerals [Hair,Skin and Nails] tablet 1 tab PO DAILY RF: 0 Invokana 100 mg tablet 100 mg PO DAILY RF: 0 insulin lispro 100 unit/mL solution 10 unit subcut TIDCM RF: 0 insulin glargine 100 unit/mL solution 17 unit subcut DAILY RF: 0 levothyroxine 175 mcg tablet 175 mcg PO DAILY RF: 0 triamcinolone acetonide 0.5 % cream 1 applic topical BID RF: 0 aspirin 81 MG tablet,chewable 81 mg PO DAILY@0800 RF: 0 allopurinol 300 MG tablet 300 mg PO DAILY RF: 0 albuterol sulfate 1 INHALER inhaler 2 puff inhalation Q4H PRN PRN (Reason: Wheezing) RF: 0 cholecalciferol (vitamin D3) 25 mcg (1,000 unit) tablet 1,000 unit PO BID RF: 0 pravastatin 40 mg tablet See Rx Instructions .ROUTE .COMPLEX Qty: 90 RF: 3 metoprolol succinate 25 mg tablet extended release 24 hr See Rx Instructions .ROUTE .COMPLEX Qty: 135 RF: 3 losartan 50 mg tablet 50 mg PO BID Qty: 180 RF: 3 flecainide 100 mg tablet 100 mg PO BID Qty: 180 RF: 3 amlodipine 10 mg tablet 10 mg PO DAILY Qty: 90 RF: 3 warfarin 4 mg tablet See Rx Instructions mg .ROUTE .COMPLEX Qty: 90 RF: 3 furosemide 40 mg tablet 40 mg PO .COMPLEX PRN (Reason: diuretics) Qty: 92 RF: 3 Primary Care Provider: Marcelino Moon Referrals: Marcelino Moon DO [Primary Care Provider] - 1 Week Disposition Disposition: Home, Self Care
[2021-11-21 19:10] VITALS: BP 213/70
[2021-11-21] MEDS: Labetalol 100 MG/20 ML Vial 10 MG IV (19:19)
[2021-11-21 19:20] LABS: Absolute Lymphocyte Count 2.14 X10^3/uL (0.83-4.51); Absolute Neutrophil Count 7.3 X10^3/uL (2.0-7.7); Basophil# 0.05 X10^3/uL; Basophil% 0.5 % (0-1); Eosinophil# 0.48 X10^3/uL; Eosinophils% 4.4 % (0-5); Hematocrit 37.3 % (37-47); Hemoglobin 12.4 g/dL (12.0-15.0); Lymphocyte # 2.14 X10^3/ul (0.83-4.51); Lymphocyte % 19.6 % (19-41); Mean Corp Hgb Conc 33.2 g/dL (32-36); Mean Corpuscular Hgb 31.2 pg (27.0-32.0); Mean Platelet Vol. 11.2 fl (6.2-12.0); Monocyte# 0.91 X10^3/uL; Monocyte% 8.3 % (0-10); NRBC Flagged by Analyzer 0 % (0-5); Neutrophil # 7.33 X10^3/uL (2.7-7.7); Platelet Count 231 K/mm3 (150-450); RBC Distribution Width CV 14.4 % (11.6-14.6); RBC Distribution Width SD 49.1 fl (35.1-43.9); Red Blood Count 3.97 M/mm3 (4.2-5.4); White Blood Count 10.9 K/mm3 (4.4-11.0)
[2021-11-21 19:29] LABS: International Normalized Ratio 2.5; Prothrombin Time (Protime)PT. 26.1 SECONDS (11.7-14.9)
[2021-11-21 19:36] LABS: Anion Gap 5 (5-15); BUN 45 mg/dL (7-18); BUN/Creat Ratio 23.4 RATIO (10-20); Calcium,Total 8.4 mg/dL (8.5-10.1); Chloride 106 mmol/L (98-107); Creatinine, Serum 1.92 mg/dL (0.55-1.02); EST Glomerular Filtration Rate 27 mL/min (>60); Est Glom Filt Rate - Afr Amer 32 mL/min (>60); Estimated Creatinine Clearance 17.87 ml/min; Glucose 134 mg/dL (74-106); Potassium 4.1 mmol/L (3.5-5.1); Sodium Level 138 mmol/L (136-145)
[2021-11-21 19:45] VITALS: BP 162/106; PULSE 67; RESP 18; O2SAT 94
[2021-11-21 20:13] VITALS: BP 178/61; PULSE 65; RESP 15; O2SAT 93
[2021-11-21 20:45] VITALS: BP 172/65; O2SAT 94
== END 2021-11-21 20:55 | disposition home or self-care (01) ==
PROVIDERS: Emergency Provider Emergency Medicine; PCP Student in an Organized Health Care Education/Training Program; Visit Provider Emergency Medicine
DX: S30.1XXA Contusion of abdominal wall, initial encounter (principal); E11.22 Type 2 diabetes mellitus with diabetic chronic kidney disease; Z79.4 Long term (current) use of insulin; I12.9 Hypertensive chronic kidney disease with stage 1 through stage 4 chronic kidney disease, or unspecified chronic kidney disease; E78.5 Hyperlipidemia, unspecified; N18.2 Chronic kidney disease, stage 2 (mild); Z79.01 Long term (current) use of anticoagulants; G51.0 Bell's palsy
CPT/HCPCS: 74176; 80048; 85025; 85610; 99283; A4216

== ENCOUNTER 2021-12-15 11:27 | Outpatient (RCR) | payer MEDICARE, OTHER, SELFPAY ==
[2021-11-29 09:19] VITALS: BMI 36.5
[2021-12-08 12:21] LABS: International Normalized Ratio 3.6; Prothrombin Time (Protime)PT. 34.9 SECONDS (11.7-14.9)
[2021-12-15 12:49] LABS: International Normalized Ratio 2.9; Prothrombin Time (Protime)PT. 29.5 SECONDS (11.7-14.9)
== END 2021-12-29 18:00 | disposition home or self-care (01) ==
LOC: LAB 11:27
PROVIDERS: PCP Student in an Organized Health Care Education/Training Program; Referring Provider Internal Medicine Cardiovascular Disease; Visit Provider Internal Medicine Cardiovascular Disease
DX: I48.0 Paroxysmal atrial fibrillation (principal); Z79.01 Long term (current) use of anticoagulants
CPT/HCPCS: 36415; 85610

== ENCOUNTER 2022-01-24 12:24 | Outpatient (RCR) | payer MEDICARE, OTHER, SELFPAY ==
[2021-12-30 00:58] VITALS: BMI 36.5
[2022-01-17 11:51] LABS: International Normalized Ratio 3.3; Prothrombin Time (Protime)PT. 32.9 SECONDS (11.7-14.9)
[2022-01-24 13:49] LABS: International Normalized Ratio 2.9; Prothrombin Time (Protime)PT. 30.2 SECONDS (11.7-14.9)
== END 2022-01-24 18:00 | disposition home or self-care (01) ==
LOC: LAB 12:24
PROVIDERS: PCP Student in an Organized Health Care Education/Training Program; Referring Provider Internal Medicine Cardiovascular Disease; Visit Provider Internal Medicine Cardiovascular Disease
DX: I48.0 Paroxysmal atrial fibrillation (principal); Z79.01 Long term (current) use of anticoagulants
CPT/HCPCS: 36415; 85610

== ENCOUNTER 2022-02-21 11:42 | Outpatient (RCR) | payer MEDICARE, OTHER, SELFPAY ==
[2022-01-29 02:41] VITALS: BMI 36.5
[2022-02-21 12:36] LABS: International Normalized Ratio 3.5; Prothrombin Time (Protime)PT. 35.1 SECONDS (11.7-14.9)
[2022-02-21 13:15] LABS: AST(SGOT) 27 U/L (15-37); Alanine Aminotransfer ALT/SGPT 36 U/L (13-56); Albumin, Serum 3.4 g/dL (3.2-5.0); Alkaline Phosphatase 121 U/L (45-117); Bilirubin, Direct 0.13 mg/dL (0.00-0.30); Cholesterol 141 mg/dL (200); Globulin 4.5 g/dL (2.2-4.2); High Density Lipoprotein 42 mg/dL; Protein, Total 7.9 g/dL (6.4-8.2); Triglycerides 132 mg/dL; Very Low Density Lipoprotein 26 mg/dL (5-40)
== END 2022-02-21 18:00 | disposition home or self-care (01) ==
LOC: LAB 11:42
PROVIDERS: PCP Student in an Organized Health Care Education/Training Program; Referring Provider Internal Medicine Cardiovascular Disease; Visit Provider Internal Medicine Cardiovascular Disease
DX: I48.0 Paroxysmal atrial fibrillation (principal); Z79.01 Long term (current) use of anticoagulants; E78.00 Pure hypercholesterolemia, unspecified
CPT/HCPCS: 36415; 80061; 80076; 85610

== ENCOUNTER 2022-03-28 11:24 | Outpatient (RCR) | payer MEDICARE, OTHER, SELFPAY ==
[2022-02-28 20:15] VITALS: BMI 36.5
[2022-03-07 16:31] LABS: International Normalized Ratio 3.2; Prothrombin Time (Protime)PT. 32.3 SECONDS (11.7-14.9)
[2022-03-28 13:13] LABS: International Normalized Ratio 2.7; Prothrombin Time (Protime)PT. 28.6 SECONDS (11.7-14.9)
== END 2022-03-28 23:59 | disposition home or self-care (01) ==
LOC: LAB 11:24
PROVIDERS: PCP Student in an Organized Health Care Education/Training Program; Referring Provider Internal Medicine Cardiovascular Disease; Visit Provider Internal Medicine Cardiovascular Disease
DX: I48.0 Paroxysmal atrial fibrillation (principal); Z79.01 Long term (current) use of anticoagulants
CPT/HCPCS: 36415; 85610

== ENCOUNTER 2022-04-25 11:28 | Outpatient (RCR) | payer MEDICARE, OTHER, SELFPAY ==
[2022-03-31 06:44] VITALS: BMI 36.5
[2022-04-25 11:56] LABS: Hematocrit 38.3 % (37-47); Hemoglobin 11.8 g/dL (12.0-15.0); Mean Corp Hgb Conc 30.8 g/dL (32-36); Mean Corpuscular Hgb 29.9 pg (27.0-32.0); Mean Corpuscular Volume 97.2 fL (81-99); Mean Platelet Vol. 10.9 fl (6.2-12.0); Platelet Count 273 K/mm3 (150-450); RBC Distribution Width CV 14.6 % (11.6-14.6); RBC Distribution Width SD 52.1 fl (35.1-43.9); Red Blood Count 3.94 M/mm3 (4.2-5.4); White Blood Count 10.5 K/mm3 (4.4-11.0)
[2022-04-25 12:07] LABS: International Normalized Ratio 2.4
[2022-04-25 12:18] LABS: Protein:Creat Ratio 1023 mg/g CRE (0-200)
[2022-04-25 13:04] LABS: BNP,B-Type NATRIURETIC PEPTIDE 835.3 pg/mL (0-100)
[2022-04-25 13:07] LABS: Vitamin D,25 Hydroxy 60.7 ng/mL
[2022-04-25 13:15] LABS: Albumin, Serum 3.2 g/dL (3.2-5.0); BUN 73 mg/dL (7-18); BUN/Creat Ratio 30.9 RATIO (10-20); Calcium,Total 9.2 mg/dL (8.5-10.1); Chloride 104 mmol/L (98-107); Creatinine, Serum 2.36 mg/dL (0.55-1.02); EST Glomerular Filtration Rate 21 mL/min (>60); Est Glom Filt Rate - Afr Amer 25 mL/min (>60); Glucose 93 mg/dL (74-106); Phosphorus 4.9 mg/dL (2.5-4.9); Sodium Level 137 mmol/L (136-145)
[2022-04-25 13:24] LABS: PTHIN 184.6 pg/mL (18.4-80.1)
== END 2022-04-30 02:02 | disposition home or self-care (01) ==
LOC: LAB 11:28
PROVIDERS: Nurse Practitioner Family; PCP Student in an Organized Health Care Education/Training Program; Referring Provider Internal Medicine Cardiovascular Disease; Visit Provider Internal Medicine Cardiovascular Disease
DX: I48.0 Paroxysmal atrial fibrillation (principal); Z79.01 Long term (current) use of anticoagulants; R80.9 Proteinuria, unspecified; E55.9 Vitamin D deficiency, unspecified; N25.81 Secondary hyperparathyroidism of renal origin; R06.00 Dyspnea, unspecified
CPT/HCPCS: 36415; 80069; 82306; 82570; 83880; 83970; 84156; 85027; 85610

== ENCOUNTER → 2022-05-09 | Outpatient (CLI) | payer MEDICARE, OTHER, SELFPAY ==
--- NOTE | 2022-05-09 13:49 | ECHOD_ITS ---
Reason For Study: CHF Procedure This was a 2D Doppler, Color Flow transthoracic echocardiogram. The exam was of adequate technical quality. Exam performed in department. Left Ventricle Normal LV size. Left ventricular systolic function is normal. The estimated ejection fraction is 55 %. Apical wall motion abnormality may reflect pacemaker activation. Right Ventricle Normal RV size. ICD or pacer leads identified within the right ventricle. Normal systolic function. Atria The left atrium is mildly enlarged. Normal right atrium. ICD or pacer leads identified within the right atrium. No doppler evidence for ASD. Mitral Valve There is moderate mitral annular calcification. Extension of the mitral annular calcification onto the base of the posterior mitral valve leaflet. The mitral valve chordae are thickened and/or calcified. The mitral papillary muscle appears thickened and/or calcified. Mild (1+) mitral valve insufficiency. Tricuspid Valve Normal tricuspid valve. Moderate (2+) tricuspid valve insufficiency. Right ventricular systolic pressure estimated to be 37 mmHg. Aortic Valve Trisinus/trileaflet aortic valve. Mild focal aortic valve calcification. Pulmonic Valve The pulmonic valve is not well visualized. Trivial pulmonic valve insufficiency. Great Vessels Normal sized aortic root. Calcified aortic root. Pericardium/Pleural No pericardial effusion. MMode/2D Measurements & Calculations LVIDd: 5.2 cm IVSd: 1.6 cm Ao root diam: 3.4 cm LVIDs: 3.8 cm LVPWd: 1.2 cm FS: 27.3 % LAV(MOD-bp): 80.8 ml LA A4 area: 25.1 cm2 LA dimension(2D): 4.6 cm LAV(MOD-bp) Indexed: 42.3 ml/m2 LAV(MOD-sp2): 76.6 ml LAV(MOD-sp4): 76.2 ml RA A4 area: 16.9 cm2 Time Measurements MV dec time: 0.18 sec Doppler Measurements & Calculations MV E max chetan: 131.5 cm/sec Lat Peak E' Chetan: 6.6 cm/sec Med Peak E' Chetan: 5.0 cm/sec MV A max chetan: 74.2 cm/sec E/E' lat: 20.0 E/E' med: 26.5 MV E/A: 1.8 MV dec slope: 726.5 cm/sec2 Ao V2 max: 156.6 cm/sec LV V1 max: 84.2 cm/sec Ao max P.8 mmHg LV V1 max P.8 mmHg PA V2 max: 94.8 cm/sec TR max chetan: 288.3 cm/sec TR max P.6 mmHg ECHO/Echo Complete Interpretation Summary Left ventricular systolic function is normal. The estimated ejection fraction is 55 %. Apical wall motion abnormality may reflect pacemaker activation. The left atrium is mildly enlarged. There is moderate mitral annular calcification. Extension of the mitral annular calcification onto the base of the posterior mi tral valve leaflet. The mitral valve chordae are thickened and/or calcified. The mitral papillary muscle appears thickened and/or calcified. Mild (1+) mitral valve insufficiency. Moderate (2+) tricuspid valve insufficiency. Mild focal aortic valve calcification. Trivial pulmonic valve insufficiency. Calcified aortic root. Right ventricular systolic pressure estimated to be 37 mmHg. Transmitral diastolic flow velocities suggest diastolic dysfunction (pseudonorm al pattern). ICD or pacer leads identified within the right atrium ICD or pacer leads identified within the right ventricle. Ordering Physician: Royce Posadas Referring Physician: Royce Posadas Performed By: Joanne Barillas, MOOK, RVT
== END | disposition home or self-care (01) ==
LOC: CVS 13:48
PROVIDERS: PCP Student in an Organized Health Care Education/Training Program; Referring Provider Nurse Practitioner Family; Visit Provider Nurse Practitioner Family
DX: R06.00 Dyspnea, unspecified (principal); I12.9 Hypertensive chronic kidney disease with stage 1 through stage 4 chronic kidney disease, or unspecified chronic kidney disease; N18.2 Chronic kidney disease, stage 2 (mild); Z95.0 Presence of cardiac pacemaker
CPT/HCPCS: 93306

== ENCOUNTER 2022-05-29 11:43 | Outpatient (RCR) | payer MEDICARE, OTHER, SELFPAY ==
[2022-04-30 02:02] VITALS: BMI 36.5
[2022-05-29 12:44] LABS: International Normalized Ratio 1.8; Prothrombin Time (Protime)PT. 20.7 SECONDS (11.7-14.9)
== END 2022-05-29 18:00 | disposition home or self-care (01) ==
LOC: LAB 11:43
PROVIDERS: PCP Student in an Organized Health Care Education/Training Program; Referring Provider Internal Medicine Cardiovascular Disease; Visit Provider Internal Medicine Cardiovascular Disease
DX: I48.0 Paroxysmal atrial fibrillation (principal); Z79.01 Long term (current) use of anticoagulants
CPT/HCPCS: 36415; 85610

== ENCOUNTER 2022-06-12 13:31 | Outpatient (RCR) | payer MEDICARE, OTHER, SELFPAY ==
[2022-05-31 22:24] VITALS: BMI 36.5
[2022-06-12 14:39] LABS: International Normalized Ratio 2.1
== END 2022-06-12 18:00 | disposition home or self-care (01) ==
LOC: LAB 13:31
PROVIDERS: PCP Student in an Organized Health Care Education/Training Program; Referring Provider Internal Medicine Cardiovascular Disease; Visit Provider Internal Medicine Cardiovascular Disease
DX: I48.0 Paroxysmal atrial fibrillation (principal); Z79.01 Long term (current) use of anticoagulants
CPT/HCPCS: 36415; 85610

== ENCOUNTER 2022-06-19 13:03 | Inpatient (IN) | payer MEDICARE, OTHER, SELFPAY ==
[2022-06-19] VITALS (10 sets, daily range): BP systolic 139–162; BP diastolic 55–79; PULSE 61–84; RESP 16–18; TEMP 36.2–36.8; O2SAT 92–97; BMI 34.7; BMI 35.0
--- NOTE | 2022-06-19 15:02 | RAD_ITS ---
INDICATION: weakness EXAMINATION/TECHNIQUE: X-RAY - XR Chest 1 View COMPARISON: 01/30/2020.. FINDINGS: LINES/DEVICES: AICD visualized in the left chest with 2 leads in the heart. LUNGS: Peribronchial cuffing and mild bronchovascular prominence is seen that demonstrate no significant change. The costophrenic angles are clear bilaterally no evidence of pleural fluid is seen. No evidence of pneumothorax is seen. No evidence of parenchymal lung mass. MEDIASTINUM AND CARDIOVASCULAR STRUCTURES: Cardiac silhouette is mildly enlarged demonstrating no significant change in comparison to the prior study. Ossification of the tracheal bronchial tree is seen. Central airways and mediastinal contour are unremarkable. BONES AND SOFT TISSUES: Unremarkable. RAD/Chest 1 View (Portable) IMPRESSION: Cardiomegaly and mild bronchovascular prominence demonstrate no change. Electronically Signed: Lenny Florian MD at 15:34 EDT ,
--- NOTE | 2022-06-19 15:02 | CT_ITS ---
INDICATION: headaches EXAMINATION: CT BRAIN - CT Head or Brain W/O Contrast Injection TECHNIQUE: Multiple axial images were obtained of the head without intravenous contrast. A radiation dose optimization technique was used for this scan. IV Contrast dosage and agent: None. COMPARISON: 02/05/2020. FINDINGS: BRAIN PARENCHYMA: No intra- or extra-axial hemorrhage. No intracranial mass or mass effect. Subtle scattered areas of low attenuation are visualized in the periventricular and subcortical white matter consistent with mild chronic microvascular disease demonstrate mild progression in comparison to the prior study. Posterior fossa structures are unremarkable. CSF SPACES: Mild prominence of the CSF spaces demonstrates no significant increase in comparison to the prior study consistent with mild chronic atrophic brain changes. No hydrocephalus. Basal cisterns are patent. CALVARIUM, SKULL BASE, PARANASAL SINUSES AND MASTOID AIR CELLS: Mild circumferential mucosal thickening visualized in the paranasal sinuses most prominent in the posterior ethmoid air cells. No discrete lytic or blastic abnormalities. ORBITS: Both globes, extraocular muscles, optic nerves and retrobulbar fat appear unremarkable. ASPECTS Score for Acute Strokes: 10 CT/Brain/Head without Contrast IMPRESSION: No evidence of acute intracranial pathology is seen. Electronically Signed: Lenny Florian MD at 16:18 EDT Reading Location ID and State: [facility] / [place] Tel , Service support ,
--- NOTE | 2022-06-19 15:03 | EKG12_ITS ---
Test Reason : Blood Pressure : / mmHG Vent. Rate : 065 BPM Atrial Rate : 065 BPM P-R Int : 224 ms QRS Dur : 216 ms QT Int : 676 ms P-R-T Axes : 102 -83 095 degrees QTc Int : 703 ms Electronic ventricular pacemaker Abnormal ECG Confirmed by ALEJO DUTTA, SINA ([id number]), editor newspaper PRISCILLA SIMMONS ([id number]) on 06/21/2022 10:55:34 AM Referred By: CHRISTOFER Confirmed By:SINA DHILLON MD
--- NOTE | 2022-06-19 15:05 | EDS_ITS ---
HPI History of Present Illness Chief Complaint: Headache Informant: patient and family Onset/Context/Timing Onset: Weeks Context: Gradual Timing: Intermittent Quality -Headache: Positive for Similar Prior Headaches Current Severity: Mild Maximum Severity: Mild Associated Symptoms/Injury Associated Symptoms: Positive for Nausea, Vomiting and Sinus Pressure; Negative for Fever, Sore Throat, Numbness, Tingling, Preceding Aura, Visual Changes, Blurred Vision, Photophobia or Visual Loss Injury - CHERRY: Negative for Direct Trauma, Fall or Assault Narrative Narrative: -year-old female history of stroke, diabetes, hypertension, A. fib, sick sinus syndrome and on Chronic anticoagulation with Coumadin. States she has been having intermittent headaches for a month that are in front of her head and the back. She has had headaches before similar to this but they seem to be getting more frequent. Associated nausea and vomiting now with dry heaves. Said she has chronic sinus congestion that is not new. Denies any falls or trauma. Says she just feels weak all over. No dysuria. No fever. No neck Prior similar symptoms: Yes Recent Illness/Hospitalization: No PFSH PFSH Medical History Garcia's palsy Bradycardia Cerebrovascular disease CKD (chronic kidney disease) stage 2, GFR 60-89 ml/min Diabetes mellitus Dyslipidemia Essential hypertension Fatty liver Gout HLD (hyperlipidemia) HTN (hypertension) Hypothyroid Osteoporosis Ovarian cyst, left Paroxysmal atrial fibrillation Pre-syncope Sick sinus syndrome Sinus pause Home Medications albuterol sulfate 90 mcg/actuation aerosol inhaler 2 puff inhalation Q4H PRN PRN Wheezing 08/10/15 [History Last Taken 10/02/18] allopurinol 300 mg tablet 300 mg PO DAILY gout 08/10/15 [History Last Taken 11/22/19 09:00] aspirin 81 mg chewable tablet 81 mg PO DAILY@0800 Check with primary doctor 08/10/15 [History Last Taken 11/22/19 08:00] multivitamin with minerals (Hair,Skin and Nails tablet) 1 tab PO DAILY supplement 03/04/19 [History Last Taken 11/22/19 13:00] folic acid 1 mg tablet 1 mg PO DAILY 12/04/19 [History Last Taken Unknown] canagliflozin 100 mg tablet (Invokana) 100 mg PO DAILY 04/25/21 [History Last Taken Unknown] cholecalciferol (vitamin D3) 25 mcg (1,000 unit) tablet 1,000 unit PO BID supplement 04/25/21 [History Last Taken Unknown] insulin glargine 100 unit/mL subcutaneous solution 17 unit subcut DAILY blood glucose 04/25/21 [History Last Taken Unknown] insulin lispro 100 unit/mL subcutaneous solution 10 unit subcut TIDCM blood glucose 04/25/21 [History Last Taken Unknown] levothyroxine 175 mcg tablet 175 mcg PO DAILY 04/25/21 [History Last Taken Unknown] triamcinolone acetonide 0.5 % topical cream 1 applic topical BID 04/25/21 [History Last Taken Unknown] amlodipine 10 mg tablet 10 mg PO DAILY blood pressure #90 tabs 06/14/21 [Rx Last Taken Unknown] pravastatin 40 mg tablet See Rx Instructions .Route .COMPLEX #90 tabs 01/02/22 [Rx Last Taken Unknown] metoprolol succinate 50 mg tablet,extended release 24 hr 50 mg PO DAILY #90 tabs 02/28/22 [Rx Last Taken Unknown] losartan 50 mg tablet 50 mg PO BID HTN #180 tabs 03/06/22 [Rx Last Taken Unknown] warfarin 4 mg tablet See Rx Instructions .Route .COMPLEX #135 tabs 04/21/22 [Rx Last Taken Unknown] flecainide 100 mg tablet 100 mg PO BID #180 tabs 05/09/22 [Rx Last Taken Unknown] furosemide 40 mg tablet 40 mg PO BID diuretics #180 tabs 05/09/22 [Rx Last Taken Unknown] metolazone 2.5 mg tablet 2.5 mg PO .Twice a week #24 tabs 05/18/22 [Rx Last Taken Unknown] Allergy/AdvReac Type Severity Reaction Status Date / Time atorvastatin calcium AdvReac cough Verified 06/19/22 13:07 [From Lipitor] enalapril maleate AdvReac cough Verified 06/19/22 13:07 [From Vasotec] enalaprilat dihydrate AdvReac cough Verified 06/19/22 13:07 [From Vasotec] Family History Mother CVA (cerebral vascular accident) Hypertension Father Heart disease Myocardial infarction Son Overdose Surgical History Cardiac pacemaker in situ (10/28/18) History of appendectomy History of tubal ligation S/P laparoscopic appendectomy Social History Smoking Status: Never smoker alcohol intake: never substance use type: does not use caffeine: Yes Type: coffee Number of servings: 2 ROS ROS ED ROS Narrative Headaches. Nausea vomiting. Review of Systems ROS Unobtainable: Denies due to encephalopathy Constitutional Constitutional ED: Denies chills or fever(s) Eyes Eyes: Denies blurry vision ENT ENT ED: Denies ear pain Cardiovascular Cardiovascular: Denies chest pain Respiratory/Chest Respiratory/Chest: Denies cough or dyspnea Gastrointestinal Gastrointestinal: Reports nausea and vomiting; Denies abdominal pain, constipation, diarrhea or melena Genitourinary Genitourinary ED: Denies dysuria or hematuria Musculoskeletal Musculoskeletal: Denies arthralgias Integumentary Denies abscess Neurologic Neurologic: Reports headache(s) Psychiatric Psychiatric: Denies anxiety Endocrine Endocrinology: Denies polydipsia Hematologic/Lymphatic Hematologic/Lymphatic: Denies easy bleeding Allergic/Immunologic Allergic/Immunologic ED: Denies mouth swelling EXAM Physical Exam Narrative Exam Narrative: 82-year-old female no acute distress. Son at bedside. Vital signs stable afebrile. H EENT exam unremarkable atraumatic. Pupils round react light. No facial droop. Moist mucous membranes. No signs of trauma to her face or scalp. No temporal tenderness. Neck nontender no meningismus no lymphadenopathy. Lungs clear to auscultation. Heart regular rhythm rate about 80 no murmur. Chest were nontender. Abdomen soft nontender. Moving all 4 extremities. 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 Dorsi plantarflexion intact. Normal range of motion. Neurologic exam normal. She is awake alert oriented. Knows date, month, year. Answering questions appropriately. No focal motor deficits. Benign exam. Const Vital Signs: 06/19/22 13:05 06/19/22 13:07 06/19/22 15:32 Temperature 97.2 F L 97.2 F L 97.5 F L Temperature Source Temporal Temporal Temporal Pulse Rate 84 84 66 Respiratory Rate 16 16 18 Blood Pressure 139/56 H 139/56 H 139/59 H Blood Pressure Mean 83 83 85 Pulse Ox 97 97 96 Oxygen Delivery Method Room Air Room Air Room Air 06/19/22 15:34 Temperature 97.5 F L Temperature Source Temporal Pulse Rate 66 Respiratory Rate 18 Blood Pressure 139/59 H Blood Pressure Mean 85 Pulse Ox 96 Oxygen Delivery Method Room Air Positive well nourished, well developed and obese; Negative for cachectic, contractures or unkempt General Appearance ED: well developed and NAD; Negative for unkempt, cachectic, contractures, cyanotic or diaphoretic Nutritional Appearance: obese; Negative for cachectic HEENT Reports normocephalic and moist mucous membranes atraumatic; Negative for trauma, tenderness, temporal artery tenderness or vesicular rash Face and Sinus: Negative for sinus tenderness Eyes PERRL and EOMs intact bilaterally General Eye ED: Yes pale conjunctiva; Negative for scleral icterus Neck no lymphadenopathy, supple, no meningeal signs and no JVD General: Negative for tenderness Resp normal respiratory effort and clear to auscultation bilaterally Effort and Inspection: Negative for retractions Auscultation: Negative for rales, rhonchi or wheezes Cardio regular rate, regular rhythm, S1 normal heart sound, S2 normal heart sound and no murmurs Rate: Negative for bradycardia Rhythm: Negative for abnormal rhythm GI non-tender and non-distended Auscultation: normoactive bowel sounds Palpation: soft; Negative for firm or tender Back/Spine no CVA tenderness General Back: Negative for CVA tenderness or tenderness Cervical Spine: Negative for cervical spine tenderness Thoracic Spine / Upper Back: Negative for thoracic spinal tenderness Lumbar Spine / Lower Back: Negative for lumbar spinal tenderness Extremity normal to inspection and full ROM General Extremety ED: Negative for edema or tenderness General Extremity: Negative for edema Neuro oriented x3 and CN's II-XII intact bilaterally Sensorium / Orientation: awake, alert, oriented to person, oriented to place and oriented to time; Negative for orientation impaired, lethargic or stuporous Coordination / Balance: [id number] test normal Speech: speech normal Motor Exam: strength 5/5 throughout Psych mental status grossly normal Appearance: Negative for unkempt Attitude: No agitated Mood & Affect: Negative for depressed, anxious or tearful Skin Lesions: no lesions Rashes: no rashes MDM MDM MDM Narrative Medical decision making narrative: 82-year-old lady headache exam benign. CAT scan labs pending. She is also complaining of generalized weakness. Repeat exam unchanged. I went over the lab test with her and her son at bedside. Hospitalist is on page she will be admitted for hyponatremia. She did receive saline bolus here while waiting for the lab results. Lab Data Attestation: I reviewed the patient's lab results. Lab results narrative: CBC shows white count 9.8. H&H 14 and 39. Platelets 278. Patient on Coumadin INR 2.2. Electrolytes show sodium 117 consistent with acute hyponatremia. Gap 14. BUN 93 creatinine 2.67. Liver enzymes unremarkable. Urinalysis negative. Labs: Laboratory Results - last 24 hr 06/19/22 06/19/22 06/19/22 15:46 15:46 15:46 WBC 11.8 H RBC 4.57 Hgb 14.0 Hct 39.3 MCV 86.0 MCH 30.6 MCHC 35.6 RDW Std Deviation 43.1 RDW Coeff of Ashley 13.8 Plt Count 278 MPV 11.1 Immature Gran % (Auto) 0.300 Neut % (Auto) 82.5 H Lymph % (Auto) 11.3 L [place] % (Auto) 5.4 Eos % (Auto) 0.3 Baso % (Auto) 0.2 Absolute Neuts (auto) 9.7 H Absolute Lymphs (auto) 1.33 Nucleated RBC % 0 PT 24.4 H INR 2.2 Sodium 117 L* Potassium 4.0 Chloride 76 L Carbon Dioxide 27.0 Anion Gap 14 BUN 93 H Creatinine 2.67 H Estim Creat Clear Calc 12.63 Est GFR (MDRD) Af Amer 22 L Est GFR (MDRD) Non-Af 18 L BUN/Creatinine Ratio 34.8 H Glucose 206 H Calcium 9.4 Total Bilirubin 0.90 AST 59 H ALT 35 Alkaline Phosphatase 109 Total Protein 8.0 Albumin 3.3 Globulin 4.7 H Albumin/Globulin Ratio 0.7 L Urine Color Urine Clarity Urine pH Ur Specific [place] Urine Protein Urine Glucose (UA) Urine Ketones Urine Occult Blood Urine Nitrite Urine Bilirubin Urine Urobilinogen Ur Leukocyte Esterase Urine RBC Urine WBC Ur Squamous Epith Cells Urine Bacteria Urine Mucus 06/19/22 15:46 WBC RBC Hgb Hct MCV MCH MCHC RDW Std Deviation RDW Coeff of Ashley Plt Count MPV Immature Gran % (Auto) Neut % (Auto) Lymph % (Auto) [place] % (Auto) Eos % (Auto) Baso % (Auto) Absolute Neuts (auto) Absolute Lymphs (auto) Nucleated RBC % PT INR Sodium Potassium Chloride Carbon Dioxide Anion Gap BUN Creatinine Estim Creat Clear Calc Est GFR (MDRD) Af Amer Est GFR (MDRD) Non-Af BUN/Creatinine Ratio Glucose Calcium Total Bilirubin AST ALT Alkaline Phosphatase Total Protein Albumin Globulin Albumin/Globulin Ratio Urine Color Straw Urine Clarity Clear Urine pH 6.5 Ur Specific [place] 1.010 Urine Protein 30 H Urine Glucose (UA) 100 H Urine Ketones Negative Urine Occult Blood Negative Urine Nitrite Negative Urine Bilirubin Negative Urine Urobilinogen Normal Ur Leukocyte Esterase Negative Urine RBC 0 SEEN Urine WBC 0 SEEN Ur Squamous Epith Cells 0-5 SEEN Urine Bacteria 0 SEEN Urine Mucus 0 SEEN Radiography Diagnostic Testing: Clinical Impression(s) from Imaging Studies Brain CT 06/19/22 15:02 IMPRESSION: No evidence of acute intracranial pathology is seen. Electronically Signed: Lenny Florian MD at 16:18 EDT Reading Location ID and State: [facility] / [place] Tel , Service support , Chest x-ray, portable, single view interpreted by myself shows no acute abnormality. Normal cardiac silhouette. Normal lung jaffe. No infiltrates. Rhythm Strip Rhythm Strip: Paced Rate: 65 EKG Initial EKG: Attestation: I personally reviewed and interpreted this EKG as follows: Interpretation: Paced Comments: Paced rhythm Prior EKG tracings: available for review Prior: Changed Discharge Plan Dx/Rx/DC Orders Clinical Impression: Generalized weakness, Chronic anticoagulation, Pacemaker, Acute hyponatremia, Headache, CKD (chronic kidney disease) stage 2, GFR 60-89 ml/min Disposition Disposition: Acute Care Hospital [facility]
[2022-06-19] MEDS: Ondansetron 4 MG/2 ML Vial IV (15:27)
[2022-06-19] MEDS: Acetaminophen 325 MG Tablet 650 MG PO ×2 (15:27→18:55)
[2022-06-19 15:51] LABS: Bacteria 0 SEEN /hpf (None Seen); Mucous, Urine 0 SEEN /hpf (<or=2+); Red Blood Cells-Urine 0 SEEN /hpf (0-5); White Blood Cells 0 SEEN /hpf (0-5)
[2022-06-19 15:53] LABS: Hematocrit 39.3 % (37-47); Mean Corp Hgb Conc 35.6 g/dL (32-36); Mean Corpuscular Hgb 30.6 pg (27.0-32.0); Mean Platelet Vol. 11.1 fl (6.2-12.0); Neutrophil % 82.5 % (47-70); Platelet Count 278 K/mm3 (150-450); RBC Distribution Width CV 13.8 % (11.6-14.6); RBC Distribution Width SD 43.1 fl (35.1-43.9); Red Blood Count 4.57 M/mm3 (4.2-5.4); White Blood Count 11.8 K/mm3 (4.4-11.0)
[2022-06-19 15:54] LABS: Absolute Lymphocyte Count 1.33 X10^3/uL (0.83-4.51); Absolute Neutrophil Count 9.7 X10^3/uL (2.0-7.7); Basophil# 0.02 X10^3/uL; Basophil% 0.2 % (0-1); Eosinophil# 0.03 X10^3/uL; Eosinophils% 0.3 % (0-5); Lymphocyte # 1.33 X10^3/ul (0.83-4.51); Lymphocyte % 11.3 % (19-41); Monocyte# 0.64 X10^3/uL; Monocyte% 5.4 % (0-10); NRBC Flagged by Analyzer 0 % (0-5)
[2022-06-19 15:56] LABS: Color, Urine Straw (Yellow); Glucose, Dipstick 100 mg/dl (Normal); Ketone-Dipstick Negative (Negative); Leukocyte Esterase-Dipstick Negative /ul (Negative); Nitrite-Dipstick Negative (Negative); Occult Blood-Urine Negative /ul (Negative); Protein-Dipstick 30 mg/dl (Negative); Urine Bilirubin Dipstick Negative (Negative); Urine Clarity Clear (Clear); Urine Urobilinogen Normal (Normal); Urine pH 6.5 (5.0 - 8.0)
[2022-06-19 16:19] LABS: International Normalized Ratio 2.2; Prothrombin Time (Protime)PT. 24.4 SECONDS (11.7-14.9)
[2022-06-19 16:33] LABS: Squamous Epithelial Cells - UA 0-5 SEEN /hpf (5-10)
[2022-06-19 16:38] LABS: ALB/GLOB Ratio 0.7 RATIO (0.9-2.4); AST(SGOT) 59 U/L (15-37); Alanine Aminotransfer ALT/SGPT 35 U/L (13-56); Albumin, Serum 3.3 g/dL (3.2-5.0); Alkaline Phosphatase 109 U/L (45-117); Anion Gap 14 (5-15); BUN 93 mg/dL (7-18); BUN/Creat Ratio 34.8 RATIO (10-20); Calcium,Total 9.4 mg/dL (8.5-10.1); Chloride 76 mmol/L (98-107); Creatinine, Serum 2.67 mg/dL (0.55-1.02); EST Glomerular Filtration Rate 18 mL/min (>60); Est Glom Filt Rate - Afr Amer 22 mL/min (>60); Estimated Creatinine Clearance 12.63 ml/min; Globulin 4.7 g/dL (2.2-4.2); Glucose 206 mg/dL (74-106); Sodium Level 117 mmol/L (136-145)
--- NOTE | 2022-06-19 16:55 | HP.PCM.HOS_ITS ---
HPI - General General Date of Admission: 06/19/22 Date of Service: 06/19/22 Chief Complaint: headache HPI Narrative REY GUY, is a 82 F with a PMH as outlined who presents via the ED with a complaint of headache. Headache had been going on for about a month but had been persistent.She also complained of generalised weakness and malaise. She has had associated nausea and vomited twice today. She denied any blurred vision, any focal weakness, slurred speech, numbness or tingling. Review of systems was otherwise negative. She went to see her PCP today and was referred to the ED. 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 Vitals in the ED were BP of 139/59, MS of 66, RR of 18, temp of 97.5F and oxygen sats of 96% on room air. CBC showed hb of 14, wbc of 11.8, platelets of 278. Chemistry showed sodium of 117, chloride of 76, Cr of 2.67 and potassium of 4. Urinalysis showed no abnormalities. CT of the brain showed no evidence of acute intracranial pathology. She is being admitted to be managed for acute hyponatremia. [facility] Medical History Garcia's palsy Bradycardia Cerebrovascular disease CKD (chronic kidney disease) stage 2, GFR 60-89 ml/min Diabetes mellitus Dyslipidemia Essential hypertension Fatty liver Gout HLD (hyperlipidemia) HTN (hypertension) Hypothyroid Osteoporosis Ovarian cyst, left Paroxysmal atrial fibrillation Pre-syncope Sick sinus syndrome Sinus pause Home Medications albuterol sulfate 90 mcg/actuation aerosol inhaler 2 puff inhalation Q4H PRN PRN Wheezing 08/10/15 [History Last Taken 10/02/18] allopurinol 300 mg tablet 300 mg PO DAILY gout 08/10/15 [History Last Taken 11/22/19 09:00] aspirin 81 mg chewable tablet 81 mg PO DAILY@0800 Check with primary doctor 08/10/15 [History Last Taken 11/22/19 08:00] multivitamin with minerals (Hair,Skin and Nails tablet) 1 tab PO DAILY supplement 03/04/19 [History Last Taken 11/22/19 13:00] folic acid 1 mg tablet 1 mg PO DAILY 12/04/19 [History Last Taken Unknown] canagliflozin 100 mg tablet (Invokana) 100 mg PO DAILY 04/25/21 [History Last Taken Unknown] cholecalciferol (vitamin D3) 25 mcg (1,000 unit) tablet 1,000 unit PO BID supplement 04/25/21 [History Last Taken Unknown] insulin glargine 100 unit/mL subcutaneous solution 17 unit subcut DAILY blood glucose 04/25/21 [History Last Taken Unknown] insulin lispro 100 unit/mL subcutaneous solution 10 unit subcut TIDCM blood glucose 04/25/21 [History Last Taken Unknown] levothyroxine 175 mcg tablet 175 mcg PO DAILY 04/25/21 [History Last Taken Unknown] triamcinolone acetonide 0.5 % topical cream 1 applic topical BID 04/25/21 [History Last Taken Unknown] amlodipine 10 mg tablet 10 mg PO DAILY blood pressure #90 tabs 06/14/21 [Rx Last Taken Unknown] pravastatin 40 mg tablet See Rx Instructions .Route .COMPLEX #90 tabs 01/02/22 [Rx Last Taken Unknown] metoprolol succinate 50 mg tablet,extended release 24 hr 50 mg PO DAILY #90 tabs 02/28/22 [Rx Last Taken Unknown] losartan 50 mg tablet 50 mg PO BID HTN #180 tabs 03/06/22 [Rx Last Taken Unknown] warfarin 4 mg tablet See Rx Instructions .Route .COMPLEX #135 tabs 04/21/22 [Rx Last Taken Unknown] flecainide 100 mg tablet 100 mg PO BID #180 tabs 05/09/22 [Rx Last Taken Unknown] furosemide 40 mg tablet 40 mg PO BID diuretics #180 tabs 05/09/22 [Rx Last Taken Unknown] metolazone 2.5 mg tablet 2.5 mg PO .Twice a week #24 tabs 05/18/22 [Rx Last Taken Unknown] Allergy/AdvReac Type Severity Reaction Status Date / Time atorvastatin calcium AdvReac cough Verified 06/19/22 13:07 [From Lipitor] enalapril maleate AdvReac cough Verified 06/19/22 13:07 [From Vasotec] enalaprilat dihydrate AdvReac cough Verified 06/19/22 13:07 [From Vasotec] Family History Mother CVA (cerebral vascular accident) Hypertension Father Heart disease Myocardial infarction Son Overdose Surgical History Cardiac pacemaker in situ (10/28/18) History of appendectomy History of tubal ligation S/P laparoscopic appendectomy Social History Smoking Status: Never smoker alcohol intake: never substance use type: does not use caffeine: Yes Type: coffee Number of servings: 2 ROS Review of Systems ROS Unobtainable: Denies due to encephalopathy Constitutional Constitutional: Reports fatigue, malaise and weakness; Denies anorexia, change in weight or fever(s) Eyes Eyes: Denies blurry vision or change in vision ENT HEENT: Denies dysphagia or headache(s) Cardiovascular Cardiovascular: Denies chest pain, dyspnea on exertion, edema, lightheadedness, orthopnea, palpitations, paroxysmal nocturnal dyspnea, rapid heart rate or syncope Respiratory/Chest Respiratory/Chest: Denies cough, dyspnea, productive cough, shortness of breath at rest or shortness of breath with exertion Gastrointestinal Gastrointestinal: Denies abdominal pain, constipation, diarrhea, melena, nausea or vomiting Genitourinary Genitourinary: Denies burning urination, dysuria, urinary frequency or urinary hesitancy Musculoskeletal Musculoskeletal: Denies arthralgias, back pain, joint pain or joint swelling Neurologic Neurologic: Reports headache(s); Denies confusion, dizziness, focal weakness, numbness, paresthesias or seizures Psychiatric Psychiatric: Denies anxiety Endocrine Endocrinology: Denies change in body appearance Hematologic/Lymphatic Hematologic/Lymphatic: Denies anemia Vital Signs Vital Signs Vital Signs: 06/19/22 13:05 06/19/22 13:07 06/19/22 15:32 Temperature 97.2 F L 97.2 F L 97.5 F L Temperature Source Temporal Temporal Temporal Pulse Rate 84 84 66 Respiratory Rate 16 16 18 Blood Pressure 139/56 H 139/56 H 139/59 H Blood Pressure Mean 83 83 85 Pulse Ox 97 97 96 Oxygen Delivery Method Room Air Room Air Room Air 06/19/22 15:34 Temperature 97.5 F L Temperature Source Temporal Pulse Rate 66 Respiratory Rate 18 Blood Pressure 139/59 H Blood Pressure Mean 85 Pulse Ox 96 Oxygen Delivery Method Room Air Weight Weight: 190 lb Body Mass Index (BMI) 34.7 Physical Exam Const alert, oriented x3 and no apparent distress General Appearance: cooperative Orientation / Consciousness: lethargic HEENT normocephalic, head/scalp atraumatic and hearing grossly normal bilaterally Mouth: oral and palatal mucosa normal Eyes PERRL, EOMs intact bilaterally and conjunctivae normal Neck no lymphadenopathy, supple and no JVD Resp normal respiratory effort, no retractions, no use of accessory muscles and clear to auscultation bilaterally Cardio regular rate, regular rhythm, S1 normal heart sound, S2 normal heart sound and no murmurs GI normal to inspection, nondistended, normoactive bowel sounds, soft to palpation and non-tender Extremity normal to inspection, full ROM and no clubbing, cyanosis or edema Neuro oriented x3, CN's II-XII intact bilaterally, moves all extremities and no focal motor deficits Sensorium / Orientation: awake and alert Motor Exam: strength 5/5 throughout Psych affect normal Results Lab / Micro Data Result Diagrams: 06/19/22 15:46 06/19/22 15:46 Labs: Laboratory Results - last 24 hr 06/19/22 15:46: WBC 11.8 H, RBC 4.57, Hgb 14.0, Hct 39.3, MCV 86.0, MCH 30.6, MCHC 35.6, RDW Std Deviation 43.1, RDW Coeff of [place] 13.8, Plt Count 278, MPV 11.1, Immature Gran % (Auto) 0.300, Neut % (Auto) 82.5 H, Lymph % (Auto) 11.3 L, [place] % (Auto) 5.4, Eos % (Auto) 0.3, Baso % (Auto) 0.2, Absolute Neuts (auto) 9.7 H, Absolute Lymphs (auto) 1.33, Nucleated RBC % 0 06/19/22 15:46: PT 24.4 H, INR 2.2 06/19/22 15:46: Sodium 117 L*, Potassium 4.0, Chloride 76 L, Carbon Dioxide 27.0, Anion Gap 14, BUN 93 H, Creatinine 2.67 H, Estim Creat Clear Calc 12.63, Est GFR (MDRD) Af Amer 22 L, Est GFR (MDRD) Non-Af 18 L, BUN/Creatinine Ratio 34.8 H, Glucose 206 H, Calcium 9.4, Total Bilirubin 0.90, AST 59 H, ALT 35, Alkaline Phosphatase 109, Total Protein 8.0, Albumin 3.3, Globulin 4.7 H, Albumin/Globulin Ratio 0.7 L 06/19/22 15:46: Urine Color Straw, Urine Clarity Clear, Urine pH 6.5, Ur Specific [place] 1.010, Urine Protein 30 H, Urine Glucose (UA) 100 H, Urine Ketones Negative, Urine Occult Blood Negative, Urine Nitrite Negative, Urine Bilirubin Negative, Urine Urobilinogen Normal, Ur Leukocyte Esterase Negative, Urine RBC 0 SEEN, Urine WBC 0 SEEN, Ur Squamous Epith Cells 0-5 SEEN, Urine Bacteria 0 SEEN, Urine Mucus 0 SEEN Rhythm Strip Rhythm Strip: Paced Rate: [address] 06/19/22 15:02 IMPRESSION: No evidence of acute intracranial pathology is seen. Electronically Signed: Lenny Florian MD at 16:18 EDT Reading Location ID and State: [facility] / [place] Tel , Service support , Assessment & Plan Assessment/Plan (1) Generalized weakness: (2) Hyponatremia: PLAN: Plan #Acute hyponatremia * patient has been feeling weak and lethargic, with associated headache * sodium is 117, previous bicarb in march 2022 was 137. * admit to PCU * patient was also recently started on a second diuretic, which may be contributing to her lethargy adn hyponatremia * hold all diuretics * hydrate with IVF; goal is to correct sodium by 6-8mmol/L over next 24 hours * check BMP q4hrly for next 24 hours * if sodium doesnt improve, consult nephrology * check urine and serum osmolality as well as urine sodium * #Headache * could be due to hyponatremia also * if it doesnt improve, get MRI, as CT brain showed no acute intracranial pathology * * #MEGAN on CKD: * Creatinine is 2.67 with a baseline of around 1.9. * Continue gentle hydration with IV fluids. Type 2 diabetes mellitus: * On canagliflozin. Insulin sliding scale. Accu-Cheks ACH S. * Also on Lantus 17 units nightly. #Hypertension: On amlodipine, metoprolol and losartan #Hypothyroidism: On Synthroid. Check TSH. #Hyperlipidemia: #Paroxysmal A. fib: On metoprolol. Also on flecainide. On Coumadin. INR is 1.2. #Sick sinus syndrome s/p pacemaker insertion: stable DVT prophylaxis: on coumadin Code status: full code * Patient counseled extensively about different types of CODE STATUS including full code, DNR CCA and DNR CCA. Patient elects to be full code. * Total [id number] time 17 minutes. Charges/Coding Visit Charges Inpatient E&M: 51866 Init Hosp L3 Procedures Hospitalists Procedures: 90224 Advncd Care Plan 30 Min
--- NOTE | 2022-06-19 17:01 | NURSING ---
DR SILAS LOZOYA
--- NOTE | 2022-06-19 17:08 | NURSING ---
PCU KORAM HYPONATREMIA, WEAKNESS, CKD, HEADACHE
[2022-06-19] MEDS: 0.9% Normal Saline 1,000 ML 125 ML IV (18:27)
[2022-06-19] MEDS: Flecainide 100 MG Tablet PO (21:18)
[2022-06-19] MEDS: Insulin Lispro 100 UNIT/ML INSULN.PEN SC (21:18)
[2022-06-19] MEDS: Losartan Potassium 50 MG Tablet PO (21:18)
[2022-06-19] MEDS: Cholecalciferol (VIT D3) 25 MCG TABLET (1,000 UNITS) PO (21:18)
[2022-06-19 21:56] LABS: Anion Gap 14 (5-15); BUN 90 mg/dL (7-18); BUN/Creat Ratio 35.9 RATIO (10-20); Chloride 78 mmol/L (98-107); Creatinine, Serum 2.51 mg/dL (0.55-1.02); EST Glomerular Filtration Rate 19 mL/min (>60); Est Glom Filt Rate - Afr Amer 24 mL/min (>60); Estimated Creatinine Clearance 13.43 ml/min; Glucose 222 mg/dL (74-106); Potassium 2.6 mmol/L (3.5-5.1); Sodium Level 121 mmol/L (136-145); Thyroid Stim Hormone (TSH) 0.35 uIU/mL (0.358-3.74)
[2022-06-19 22:04] LABS: Osmolality, Serum 285 mOsm/KG (280-301)
[2022-06-19] MEDS: Potassium Chloride Oral Tablet 20 MEQ 40 MEQ PO (23:16)
[2022-06-19] MEDS: Potassium Chloride 10mEq/100mL 10 MEQ/100 ML IV.SOLN. 100 MEQ IV BOLUS (23:21)
[2022-06-20] VITALS (15 sets, daily range): BP systolic 109–143; BP diastolic 60–63; PULSE 60–93; RESP 14–20; TEMP 36.4–36.6; O2SAT 91–98
[2022-06-20] MEDS: Potassium Chloride 10mEq/100mL 10 MEQ/100 ML IV.SOLN. 100 MEQ IV BOLUS ×3 (00:20→02:24)
[2022-06-20 00:43] LABS: Anion Gap 13 (5-15); BUN 84 mg/dL (7-18); BUN/Creat Ratio 35.6 RATIO (10-20); Calcium,Total 8.4 mg/dL (8.5-10.1); Chloride 81 mmol/L (98-107); Creatinine, Serum 2.36 mg/dL (0.55-1.02); EST Glomerular Filtration Rate 21 mL/min (>60); Est Glom Filt Rate - Afr Amer 25 mL/min (>60); Estimated Creatinine Clearance 14.29 ml/min; Glucose 152 mg/dL (74-106); Potassium 2.8 mmol/L (3.5-5.1); Sodium Level 120 mmol/L (136-145)
[2022-06-20 01:00] LABS: Urine Sodium 46 mmol/L (Not Establ.)
[2022-06-20] MEDS: 0.9% Normal Saline 1,000 ML 125 ML IV (02:28)
[2022-06-20 02:46] LABS: Osmolality, Urine 253 mOsm/KG
[2022-06-20 04:01] LABS: Bedside Glucose 205 mg/dL (74-106)
[2022-06-20 04:32] LABS: Absolute Neutrophil Count 7.9 X10^3/uL (2.0-7.7); Basophil# 0.03 X10^3/uL; Basophil% 0.3 % (0-1); Eosinophil# 0.27 X10^3/uL; Eosinophils% 2.5 % (0-5); Hematocrit 35.5 % (37-47); Hemoglobin 12.1 g/dL (12.0-15.0); Lymphocyte % 15.6 % (19-41); Mean Corp Hgb Conc 34.1 g/dL (32-36); Mean Corpuscular Hgb 29.5 pg (27.0-32.0); Mean Corpuscular Volume 86.6 fL (81-99); Mean Platelet Vol. 10.6 fl (6.2-12.0); Monocyte# 0.93 X10^3/uL; Monocyte% 8.5 % (0-10); NRBC Flagged by Analyzer 0 % (0-5); Neutrophil # 7.93 X10^3/uL (2.7-7.7); Neutrophil % 72.8 % (47-70); Platelet Count 250 K/mm3 (150-450); RBC Distribution Width CV 13.7 % (11.6-14.6); RBC Distribution Width SD 42.8 fl (35.1-43.9); White Blood Count 10.9 K/mm3 (4.4-11.0)
[2022-06-20 04:58] LABS: International Normalized Ratio 2.7
[2022-06-20 05:06] LABS: Anion Gap 13 (5-15); BUN 75 mg/dL (7-18); BUN/Creat Ratio 33.3 RATIO (10-20); Calcium,Total 8.4 mg/dL (8.5-10.1); Chloride 84 mmol/L (98-107); Creatinine, Serum 2.25 mg/dL (0.55-1.02); EST Glomerular Filtration Rate 22 mL/min (>60); Est Glom Filt Rate - Afr Amer 27 mL/min (>60); Estimated Creatinine Clearance 14.98 ml/min; Glucose 110 mg/dL (74-106); Potassium 3.3 mmol/L (3.5-5.1); Sodium Level 122 mmol/L (136-145)
[2022-06-20] MEDS: Levothyroxine 175 MCG Tablet PO (06:31)
[2022-06-20 07:05] LABS: Bedside Glucose 111 mg/dL (74-106)
--- NOTE | 2022-06-20 07:46 | PN.HOSP_ITS ---
Subjective Subjective Seen and examined. Follow-up for severe hyponatremia. Objective Data Objective Data Vital Signs: Vital Signs Temp Pulse Resp BP Pulse Ox O2 Del Method 97.7 F L 66 18 143/63 H 95 Room Air 06/20/22 03:09 06/20/22 07:35 06/20/22 03:06/20/22 03:09 06/20/22 03:06/20/22 03:10 Oxygen Delivery Method Room Air Weight: 191 lb 9.307 oz Body Mass Index (BMI) 35.0 Intake & Output: Intake and Output for Last 24 Hours 06/18/22 06/19/22 06/20/22 23:59 23:59 23:59 Intake Total 980 / 980 1398.33 / 1398.33 Balance 980 / 980 1398.33 / 1398.33 Lab / Micro Data Result Diagrams: 06/20/22 03:53 06/20/22 07:51 Labs: Laboratory Results - last 24 hr 06/19/22 15:46: WBC 11.8 H, RBC 4.57, Hgb 14.0, Hct 39.3, MCV 86.0, MCH 30.6, MCHC 35.6, RDW Std Deviation 43.1, RDW Coeff of Ashley 13.8, Plt Count 278, MPV 11.1, Immature Gran % (Auto) 0.300, Neut % (Auto) 82.5 H, Lymph % (Auto) 11.3 L, Carbon % (Auto) 5.4, Eos % (Auto) 0.3, Baso % (Auto) 0.2, Absolute Neuts (auto) 9.7 H, Absolute Lymphs (auto) 1.33, Nucleated RBC % 0 06/19/22 15:46: PT 24.4 H, INR 2.2 06/19/22 15:46: Sodium 117 L*, Potassium 4.0, Chloride 76 L, Carbon Dioxide 27.0, Anion Gap 14, BUN 93 H, Creatinine 2.67 H, Estim Creat Clear Calc 12.63, Est GFR (MDRD) Af Amer 22 L, Est GFR (MDRD) Non-Af 18 L, BUN/Creatinine Ratio 34.8 H, Glucose 206 H, Calcium 9.4, Total Bilirubin 0.90, AST 59 H, ALT 35, Alk paige Phosphatase 109, Total Protein 8.0, Albumin 3.3, Globulin 4.7 H, Albumin/Globulin Ratio 0.7 L 06/19/22 15:46: Urine Color Straw, Urine Clarity Clear, Urine pH 6.5, Ur Specific [place] 1.010, Urine Protein 30 H, Urine Glucose (UA) 100 H, Urine Ketones Negative, Urine Occult Blood Negative, Urine Nitrite Negative, Urine Bilirubin Negative, Urine Urobilinogen Normal, Ur Leukocyte Esterase Negative, Urine RBC 0 SEEN, Urine WBC 0 SEEN, Ur Squamous Epith Cells 0-5 SEEN, Urine Bact eria 0 SEEN, Urine Mucus 0 SEEN 06/19/22 20:22: Serum Osmolality 285 06/19/22 20:22: Sodium 121 L, Potassium 2.6 L*, Chloride 78 L, Carbon Dioxide 29.0, Anion Gap 14, BUN 90 H, Creatinine 2.51 H, Estim Creat Clear Calc 13.43, E st GFR (MDRD) Af Amer 24 L, Est GFR (MDRD) Non-Af 19 L, BUN/Creatinine Ratio 35.9 H, Glucose 222 H, Calcium 9.0, TSH 0.35 L 06/19/22 20:22: B-Natriuretic Peptide 227.0 H 06/19/22 21:10: POC Glucose 205 H 06/19/22 23:52: Sodium 120 L, Potassium 2.8 L, Chloride 81 L, Carbon Dioxide 26.0, Anion Gap 13, BUN 84 H, Creatinine 2.36 H, Estim Creat Clear Calc 14.29, Est GFR (MDRD) Af Amer 25 L, Est GFR (MDRD) Non-Af 21 L, BUN/Creatinine Ratio 35.6 H, Glucose 152 H, Calcium 8.4 L 06/20/22 00:05: Urine Osmolality 253, Ur Random Sodium 46 06/20/22 03:53: Sodium 122 L, Potassium 3.3 L, Chloride 84 L, Carbon Dioxide 25.0, Anion Gap 13, BUN 75 H, Creatinine 2.25 H, Estim Creat Clear Calc 14.98, Est GFR (MDRD) Af Amer 27 L, Est GFR (MDRD) Non-Af 22 L, BUN/Creatinine Ratio 33.3 H, Glucose 110 H, Calcium 8.4 L 06/20/22 03:53: WBC 10.9, RBC 4.10 L, Hgb 12.1, Hct 35.5 L, MCV 86.6, MCH 29.5, MCHC 34.1, RDW Std Deviation 42.8, RDW Coeff of Ashley 13.7, Plt Count 250, MPV 10.6, Immature Gran % (Auto) 0.300, Neut % (Auto) 72.8 H, Lymph % (Auto) 15.6 L, Carbon % (Auto) 8.5, Eos % (Auto) 2.5, Baso % (Auto) 0.3, Absolute Neuts (auto) 7.9 H, Absolute Lymphs (auto) 1.70, Nucleated RBC % 0 06/20/22 03:53: PT 28.0 H, INR 2.7 06/20/22 06:29: POC Glucose 111 H Radiography Diagnostic Testing: Radiology Impression Brain CT 06/19/22 15:02 IMPRESSION: No evidence of acute intracranial pathology is seen. Electronically Signed: Lenny Florian MD at 16:18 EDT Reading Location ID and State: [facility] / [place] Tel , Service support , Rhythm Strip Rhythm Strip: Paced Rate: 65 Physical Exam Narrative Seen and examined. Patient admitted with nausea, vomiting, headache and weakness and lab finding of severe hyponatremia. She has headache mainly frontal area, sinus heaviness and dripping in nose and throat. She states that she has dropsy probably therefore she is on diuretic. She denies blurred vision focal weakness slurred speech, seizure, confusion disorientation. Denies recent fall. She uses cane for balance. Physical exam General: Alert, Oriented x3, Cooperative HEENT: Atraumatic, PERRLA, EOMI, Normocephalic Oral: No Gingival or Mucosal Lesions/ Ulcerations Neck: Supple, No JVD, Negative Carotid Bruits Lungs: Air entry diminished in bilateral lung bases. No crepitation/rhonchi Cardiovascular: Regular rate, Regular Rhythm, Normal S1, Normal S2, No murmurs Abdomen: Bowel Sounds Present, Soft, Non Tender, Non-Distended : No renal angle tenderness. No suprapubic tenderness. Extremities: No edema, Capillary Refill Less than 3 Seconds Skin: No rashes, No breakdown Musculoskeletal: No Tenderness to Palpation of Joints or Extremities. Muscle strength 5/5 at major joints Neurological: Cranial nerves II-XII grossly intact, DTR 2+/4, no gross difference in sensation Psych/Mental Status: Normal Affect, Appropriate. Assessment & Plan Assessment/Plan (1) Generalized weakness: (2) Hyponatremia: PLAN: Plan This 82-year-old female admitted with headache for 1 month, generalized weakness, malaise nausea vomiting 2 times on the day of admission. #Acute hyponatremia most probably due to volume depletion from diuretic: Patient admitted to PCU. Patient was on Lasix and metolazone. Diuretic discontinued. Monitor serum sodium with a goal to correct sodium by 6 to 8 mL over next 24 hours. Initially sodium was checked every 4 hours. * Admitting sodium is 117, previous sodium in march 2022 was 137. * Most recent sodium is 124. Normal saline was decreased to 75 mill per minute and then discontinued later on. Repeat sodium tomorrow a.m. serum osmolarity 285. Urine osmolality 253, sodium 46. Mild hypokalemia, potassium is getting replaced. #Headache * could be due to hyponatremia also * if it doesn't improve, get MRI, as CT brain showed no acute intracranial pathology #MEGAN on CKD, stage IV: * Creatinine is 2.67 with a baseline of around 1.9. * Continue gentle hydration with IV fluids. Type 2 diabetes mellitus: * On canagliflozin. Insulin sliding scale. Accu-Cheks ACHS. * Also on Lantus 17 units nightly. #Hypertension: On amlodipine, metoprolol and losartan #Hypothyroidism: On Synthroid. TSH normal. #Hyperlipidemia: #Paroxysmal A. fib: On metoprolol. Also on flecainide. On Coumadin. INR is 2.7. Try to keep K around 4, magnesium 2.0. Hold warfarin as INR is increasing #Sick sinus syndrome s/p pacemaker insertion: stable DVT prophylaxis: on coumadin Code status: full code * Patient counseled extensively about different types of CODE STATUS including full code, DNR CCA and DNR CCA. Patient elects to be full code. Laboratory Results 06/20/22 03:53: Sodium 122 L, Potassium 3.3 L, Chloride 84 L, Carbon Dioxide 25.0, Anion Gap 13, BUN 75 H, Creatinine 2.25 H, Estim Creat Clear Calc 14.98, Est GFR (MDRD) Af Amer 27 L, Est GFR (MDRD) Non-Af 22 L, BUN/Creatinine Ratio 33.3 H, Glucose 110 H, Calcium 8.4 L 06/20/22 03:53: WBC 10.9, RBC 4.10 L, Hgb 12.1, Hct 35.5 L, MCV 86.6, MCH 29.5, MCHC 34.1, RDW Std Deviation 42.8, RDW Coeff of Ashley 13.7, Plt Count 250, MPV 10.6, Immature Gran % (Auto) 0.300, Neut % (Auto) 72.8 H, Lymph % (Auto) 15.6 L, Carbon % (Auto) 8.5, Eos % (Auto) 2.5, Baso % (Auto) 0.3, Absolute Neuts (auto) 7.9 H, Absolute Lymphs (auto) 1.70, Nucleated RBC % 0 06/20/22 03:53: PT 28.0 H, INR 2.7 06/20/22 06:29: POC Glucose 111 H 06/20/22 07:51: Sodium 124 L, Potassium 3.2 L, Chloride 87 L, Carbon Dioxide 25.0, Anion Gap 12, BUN 71 H, Creatinine 2.23 H, Estim Creat Clear Calc 15.12, Est GFR (MDRD) Af Amer 27 L, Est GFR (MDRD) Non-Af 22 L, BUN/Creatinine Ratio 31.8 H, Glucose 111 H, Calcium 8.5 06/20/22 11:01: POC Glucose 200 H Charges/Coding Visit Charges Inpatient E&M: 05449 Subs Hosp L2
[2022-06-20 08:57] LABS: Anion Gap 12 (5-15); BUN 71 mg/dL (7-18); BUN/Creat Ratio 31.8 RATIO (10-20); Calcium,Total 8.5 mg/dL (8.5-10.1); Chloride 87 mmol/L (98-107); Creatinine, Serum 2.23 mg/dL (0.55-1.02); EST Glomerular Filtration Rate 22 mL/min (>60); Est Glom Filt Rate - Afr Amer 27 mL/min (>60); Estimated Creatinine Clearance 15.12 ml/min; Glucose 111 mg/dL (74-106); Potassium 3.2 mmol/L (3.5-5.1); Sodium Level 124 mmol/L (136-145)
[2022-06-20] MEDS: Aspirin 81 MG TAB.CHEW PO (09:29)
[2022-06-20] MEDS: Allopurinol 300 MG Tablet PO (09:30)
[2022-06-20] MEDS: Multivitamins,Ther W-Minerals Tablet 1 TABLET PO (09:30)
[2022-06-20] MEDS: Folic Acid 1 MG Tablet PO (09:30)
[2022-06-20] MEDS: Losartan Potassium 50 MG Tablet PO ×2 (09:30→22:28)
[2022-06-20] MEDS: Flecainide 100 MG Tablet PO ×2 (09:31→22:29)
[2022-06-20] MEDS: Pravastatin 40 MG Tablet PO (09:31)
[2022-06-20] MEDS: amLODIPine 10 MG Tablet PO (09:31)
[2022-06-20] MEDS: Metoprolol(XL)Succ 50 MG Tablet PO (09:31)
[2022-06-20] MEDS: Cholecalciferol (VIT D3) 25 MCG TABLET (1,000 UNITS) PO ×2 (09:32→22:28)
[2022-06-20] MEDS: Insulin Glargine-YFGN 100 UNIT/ML Pen 17 UNIT SC (09:38)
--- NOTE | 2022-06-20 10:00 | CASEMGMT ---
SCAR SHARPE Face to Face with patient for initial transition planning/care coordination assessment. RN CM introduced self and role at [facility]. Patient lying in bed, alert and oriented. Patient willing to participate in assessment and is able to answer all questions appropriately. Care providers, pharmacy, and demographics verified. Patient wishes to discharge home, denies need for home health at this time. Patient states she has no further needs or concerns at this time. CM to follow for discharge planning needs that may arise. PCP: [facility] Specialists: Jay, bricklayer's assistant; Madhavi dials inspector; kunal Soria Preferred Pharmacy: [facility] Insurance: [employer], [facility] Prescription Benefit: yes Living Will/HPOA: yes, son MarcoA Gillespie LNOK: , sons Living Arrangements: Patient lives with in a ranch style home with 2 steps to enter. Patient states she is independent at home. Transportation: self, sons DME/HHC: Patient states she has shower chair, raised toilet, cane, walker, and glucometer with supplies. Patient denies previous HHC or SNF. Disposition Plan: Patient to discharge home with family support and follow-up plans in place. Smita NESBITT, RN, CM
[2022-06-20] MEDS: Potassium Chloride Oral Tablet 20 MEQ 40 MEQ PO (10:39)
[2022-06-20] MEDS: Insulin Lispro 100 UNIT/ML INSULN.PEN SC ×3 (11:04→22:29)
[2022-06-20 11:25] LABS: Bedside Glucose 200 mg/dL (74-106)
--- NOTE | 2022-06-20 11:59 | CON.PCM.RE_ITS ---
Assessment & Plan Assessment/Plan (1) Acute hyponatremia: (2) MEGAN (acute kidney injury): (3) CKD (chronic kidney disease) stage 4, GFR 15-29 ml/min: (4) Hypokalemia: PLAN: Plan Patient presented to the emergency room yesterday with complaints of nausea, vomiting, fatigue and headache. Found to have a sodium of 117. Patient was admitted for further evaluation and treatment. Furosemide and metolazone were stopped and patient was started on IV fluids with careful monitoring of sodium trends. This morning her sodium level is up to 124 mmol/L. Hyponatremia possibly from volume depletion. Her sodium is correcting at a appropriate rate. We will continue monitor her labs, ordered for the morning. Patient does not need every 4 hour sodium checks at this time. On admission patient was started on IV fluids, normal saline. IV fluids were just stopped. Will monitor sodium and creatinine levels off IV fluids for now. Encouraged patient to increase oral and solute intake as best as she can. Baseline sodium is essentially normal. Patient also had elevated creatinine of 2.67 mg/dL. Nonoliguric, mildly hypovolemic MEGAN possibly from overdiuresis and volume depletion. Her creatinine today is 2.23 mg/dL, improved. At this time there is no acute indication for SILVERWARE WASHER. Her creatinine is now near baseline. Continue to hold diuretics as you are doing. Potassium is low but improving with replacement. Patient does have a known history of chronic kidney disease stage IV with baseline creatinine around 1.9 to 2.3 mg/dL. She has a history of proteinuria, last urine protein creatinine ratio 1 g as of March 2022. Patient is on losartan. Since renal function is improving we will continue on losartan as ordered. Blood pressures are acceptable. Further orders forthcoming as hospitalization evolves, thank you for allowing us to participate in the care of Ms. Gillespie. HPI Consult Data Date of Consult: 06/20/22 HPI Narrative HPI Narrative: REY GILLESPIE, is a 82 F with past medical history significant for hypertension, diabetes mellitus type 2, chronic kidney disease stage IV, history of A. fib who presented to the emergency room yesterday with complaints of headache, weakness with nausea and vomiting. Work-up in the emergency room included lab work: Sodium on admission 117 and creatinine 2.67 mg/dL. Patient was admitted for further evaluation and treatment. Her sodium improved to 124 today off diuretics and on IV fluids. We are consulted for acute kidney injury and hyponatremia. Patient is known to our group as she has been seen in our [place] office for history of CKD; baseline creatinine had been ranging around 1.9 to 2.3 mg/dL. She was last seen on 05/03/2022 and at that time her creatinine was 2.3 mg/dL. During that office visit patient was complaining of some mild shortness of breath, BNP 803 and she also noted to have worsening lower extremity edema therefore she was started on metolazone 2.5 mg twice a week. Patient reports she did not start taking metolazone until around the end of May. Patient reports after starting metolazone she did notice improvement in her lower extremity edema and breathi ng; she also continued taking her lasix. She does not weigh herself daily. Patient reports over the last week or so she developed some nausea, she also noted appetite to be poor. Patient states she developed some nasal drainage which induced gagging and vomiting over the past few days. She denies any dysuria or hematuria. Today reports breathing and swelling in legs is much improved. Denies NSAIDs. [facility] Medical History Garcia's palsy Bradycardia Cerebrovascular disease CKD (chronic kidney disease) stage 2, GFR 60-89 ml/min Diabetes mellitus Dyslipidemia Essential hypertension Fatty liver Gout HLD (hyperlipidemia) HTN (hypertension) Hypothyroid Osteoporosis Ovarian cyst, left Paroxysmal atrial fibrillation Pre-syncope Sick sinus syndrome Sinus pause Home Medications albuterol sulfate 90 mcg/actuation aerosol inhaler 2 puff inhalation Q4H PRN PRN Wheezing 08/10/15 [History Last Taken 10/02/18] allopurinol 300 mg tablet 300 mg PO DAILY gout 08/10/15 [History Last Taken 06/19/22] folic acid 1 mg tablet 1 mg PO DAILY SUPPLEMENT 12/04/19 [History Last Taken 06/19/22] canagliflozin 100 mg tablet (Invokana) 100 mg PO DAILY HEART 04/25/21 [History Last Taken 06/18/22] cholecalciferol (vitamin D3) 25 mcg (1,000 unit) tablet 1,000 unit PO DAILY supplement 04/25/21 [History Last Taken 06/19/22] insulin glargine 100 unit/mL subcutaneous solution 20 unit subcut QHS blood glucose 04/25/21 [History Last Taken 06/18/22] insulin lispro 100 unit/mL subcutaneous solution 10 unit subcut [facility] blood glucose 04/25/21 [History Last Taken 06/19/22] levothyroxine 175 mcg tablet 175 mcg PO DAILY THYROID 04/25/21 [History Last Taken 06/19/22] triamcinolone acetonide 0.5 % topical cream 1 applic topical BID RASH 04/25/21 [History Last Taken Unknown] amlodipine 10 mg tablet 10 mg PO DAILY blood pressure #90 tabs 06/14/21 [Rx Last Taken 06/19/22] losartan 50 mg tablet 50 mg PO BID HTN #180 tabs 03/06/22 [Rx Last Taken 06/19/22] furosemide 40 mg tablet 40 mg PO BID diuretics #180 tabs 05/09/22 [Rx Last Taken 06/19/22] aspirin 81 mg tablet,delayed release 81 mg PO DAILY BLOOD THINNER 06/19/22 [History Last Taken 06/19/22] flecainide 100 mg tablet 100 mg PO BID HEART 06/19/22 [History Last Taken 06/19/22] metolazone 2.5 mg tablet 2.5 mg PO .Twice a week FLUID 06/19/22 [History Last Taken Unknown] metoprolol succinate 50 mg tablet,extended release 24 hr 50 mg PO DAILY HEART 06/19/22 [History Last Taken 06/19/22] jbazmony-gljeyvvp-axzu 8 mg-folic ac 400 mcg-vit K 10 mcg chew tablet (Centrum Chewables) 1 tab PO DAILY HEALTH MAINTENANCE 06/19/22 [History Last Taken 06/19/22] pravastatin 40 mg tablet 40 mg PO DAILY CHOLESTEROL 06/19/22 [History Last Taken 06/18/22] warfarin 4 mg tablet 4 mg PO MOWETHFRSA BLOOD THINNER 06/19/22 [History Last Taken 06/17/22] warfarin 4 mg tablet 6 mg PO SUTU BLOOD THINNER 06/19/22 [History Last Taken 06/18/22] Allergy/AdvReac Type Severity Reaction Status Date / Time atorvastatin calcium AdvReac cough Verified 06/19/22 13:07 [From Lipitor] enalapril maleate AdvReac cough Verified 06/19/22 13:07 [From Vasotec] enalaprilat dihydrate AdvReac cough Verified 06/19/22 13:07 [From Vasotec] Family History Mother CVA (cerebral vascular accident) Hypertension Father Heart disease Myocardial infarction Son Overdose Surgical History Cardiac pacemaker in situ (10/28/18) History of appendectomy History of tubal ligation S/P laparoscopic appendectomy Social History Smoking Status: Never smoker alcohol intake: never substance use type: does not use caffeine: Yes Type: coffee Number of servings: 2 Physical Exam Narrative Alert and oriented x3, no apparent distress Lung sounds clear anteriorly and posteriorly, no wheezes rhonchi rales noted. On room air S1, S2, rhythm controlled Abdomen soft, nontender, positive bowel sounds x4 quadrants No edema noted bilateral lower legs or feet Lab / Micro Data Result Diagrams: 06/20/22 03:53 06/20/22 07:51 Labs: Laboratory Results - last 24 hr 06/19/22 15:46: WBC 11.8 H, RBC 4.57, Hgb 14.0, Hct 39.3, MCV 86.0, MCH 30.6, MCHC 35.6, RDW Std Deviation 43.1, RDW Coeff of Ashley 13.8, Plt Count 278, MPV 11.1, Immature Gran % (Auto) 0.300, Neut % (Auto) 82.5 H, Lymph % (Auto) 11.3 L, [place] % (Auto) 5.4, Eos % (Auto) 0.3, Baso % (Auto) 0.2, Absolute Neuts (auto) 9.7 H, Absolute Lymphs (auto) 1.33, Nucleated RBC % 0 06/19/22 15:46: PT 24.4 H, INR 2.2 06/19/22 15:46: Sodium 117 L*, Potassium 4.0, Chloride 76 L, Carbon Dioxide 27.0, Anion Gap 14, BUN 93 H, Creatinine 2.67 H, Estim Creat Clear Calc 12.63, Est GFR (MDRD) Af Amer 22 L, Est GFR (MDRD) Non-Af 18 L, BUN/Creatinine Ratio 34.8 H, Glucose 206 H, Calcium 9.4, Total Bilirubin 0.90, AST 59 H, ALT 35, Alkaline Phosphatase 109, Total Protein 8.0, Albumin 3.3, Globulin 4.7 H, Albumin/Globulin Ratio 0.7 L 06/19/22 15:46: Urine Color Straw, Urine Clarity Clear, Urine pH 6.5, Ur Specific [place] 1.010, Urine Protein 30 H, Urine Glucose (UA) 100 H, Urine Ketones Negative, Urine Occult Blood Negative, Urine Nitrite Negative, Urine Bilirubin Negative, Urine Urobilinogen Normal, Ur Leukocyte Esterase Negative, Urine RBC 0 SEEN, Urine WBC 0 SEEN, Ur Squamous Epith Cells 0-5 SEEN, Urine Bacteria 0 SEEN, Urine Mucus 0 SEEN 06/19/22 20:22: Serum Osmolality 285 06/19/22 20:22: Sodium 121 L, Potassium 2.6 L*, Chloride 78 L, Carbon Dioxide 29.0, Anion Gap 14, BUN 90 H, Creatinine 2.51 H, Estim Creat Clear Calc 13.43, Est GFR (MDRD) Af Amer 24 L, Est GFR (MDRD) Non-Af 19 L, BUN/Creatinine Ratio 35.9 H, Glucose 222 H, Calcium 9.0, TSH 0.35 L 06/19/22 20:22: B-Natriuretic Peptide 227.0 H 06/19/22 21:10: POC Glucose 205 H 06/19/22 23:52: Sodium 120 L, Potassium 2.8 L, Chloride 81 L, Carbon Dioxide 26.0, Anion Gap 13, BUN 84 H, Creatinine 2.36 H, Estim Creat Clear Calc 14.29, Est GFR (MDRD) Af Amer 25 L, Est GFR (MDRD) Non-Af 21 L, BUN/Creatinine Ratio 35.6 H, Glucose 152 H, Calcium 8.4 L 06/20/22 00:05: Urine Osmolality 253, Ur Random Sodium 46 06/20/22 03:53: Sodium 122 L, Potassium 3.3 L, Chloride 84 L, Carbon Dioxide 25.0, Anion Gap 13, BUN 75 H, Creatinine 2.25 H, Estim Creat Clear Calc 14.98, Est GFR (MDRD) Af Amer 27 L, Est GFR (MDRD) Non-Af 22 L, BUN/Creatinine Ratio 33.3 H, Glucose 110 H, Calcium 8.4 L 06/20/22 03:53: WBC 10.9, RBC 4.10 L, Hgb 12.1, Hct 35.5 L, MCV 86.6, MCH 29.5, MCHC 34.1, RDW Std Deviation 42.8, RDW Coeff of Ashley 13.7, Plt Count 250, MPV 10.6, Immature Gran % (Auto) 0.300, Neut % (Auto) 72.8 H, Lymph % (Auto) 15.6 L, [place] % (Auto) 8.5, Eos % (Auto) 2.5, Baso % (Auto) 0.3, Absolute Neuts (auto) 7.9 H, Absolute Lymphs (auto) 1.70, Nucleated RBC % 0 06/20/22 03:53: PT 28.0 H, INR 2.7 06/20/22 06:29: POC Glucose 111 H 06/20/22 07:51: Sodium 124 L, Potassium 3.2 L, Chloride 87 L, Carbon Dioxide 25.0, Anion Gap 12, BUN 71 H, Creatinine 2.23 H, Estim Creat Clear Calc 15.12, Est GFR (MDRD) Af Amer 27 L, Est GFR (MDRD) Non-Af 22 L, BUN/Creatinine Ratio 31.8 H, Glucose 111 H, Calcium 8.5 06/20/22 11:01: POC Glucose 200 H Rhythm Strip Rhythm Strip: Paced Rate: [address] 06/19/22 15:02 IMPRESSION: No evidence of acute intracranial pathology is seen. Electronically Signed: Lenny Florian MD at 16:18 EDT Reading Location ID and State: [facility] / [place] Tel , Service support , Chest X-Ray 06/19/22 15:02 IMPRESSION: Cardiomegaly and mild bronchovascular prominence demonstrate no change. Electronically Signed: Lenny Florian MD at 15:34 EDT Reading Location ID and State: [facility] / [place] Tel , Service support ,
--- NOTE | 2022-06-20 14:55 | CHAPLAIN ---
Type of Pastoral Visit _x__ Initial Visit ___ Follow-up Visit ___ On-call Visit ___ General Patient Visit ___ Spiritual Assessment ___ Family Conference ___ Bereavement ___ Rapid Response ___ Code Blue ___ Other (describe below) Pastoral Care Referral From _x__ Patient ___ Family ___ Nurse ___ Physician ___ Stile Ripsaw Operator ___ [employer]s ___ Other (describe below) Sacrament/Intervention _x__ Active listening ___ Anointing ___ Uatsdin ___ Bereavement ___ Communion ___ Estrellita exploration ___ ___ Life review _x__ Prayer ___ Reconciliation ___ Sacrament of Sick _x__ Supportive presence ___ Wedding ___ Other (describe below) Pastoral Comments general conversation with patient and familyi members; pt states she sees a little progress and hopes to get better each day; son asks for prayer for patient
[2022-06-20 16:25] LABS: Bedside Glucose 150 mg/dL (74-106)
[2022-06-20 23:25] LABS: Bedside Glucose 150 mg/dL (74-106)
[2022-06-21 03:00] VITALS: PULSE 60
[2022-06-21 04:08] VITALS: BP 120/65; PULSE 63; RESP 16; TEMP 36.5; O2SAT 92
[2022-06-21] MEDS: Levothyroxine 175 MCG Tablet PO (06:29)
[2022-06-21 06:59] VITALS: PULSE 64
[2022-06-21 07:01] LABS: Bedside Glucose 109 mg/dL (74-106)
[2022-06-21 07:28] LABS: International Normalized Ratio 2.2; Prothrombin Time (Protime)PT. 24.1 SECONDS (11.7-14.9)
[2022-06-21 07:29] LABS: Albumin, Serum 2.9 g/dL (3.2-5.0); BUN 71 mg/dL (7-18); Calcium,Total 8.7 mg/dL (8.5-10.1); Chloride 90 mmol/L (98-107); Creatinine, Serum 2.22 mg/dL (0.55-1.02); EST Glomerular Filtration Rate 22 mL/min (>60); Est Glom Filt Rate - Afr Amer 27 mL/min (>60); Estimated Creatinine Clearance 15.19 ml/min; Glucose 101 mg/dL (74-106); Phosphorus 3.5 mg/dL (2.5-4.9); Potassium 3.7 mmol/L (3.5-5.1); Sodium Level 127 mmol/L (136-145)
[2022-06-21] MEDS: Aspirin 81 MG TAB.CHEW PO (07:51)
[2022-06-21] MEDS: Folic Acid 1 MG Tablet PO (07:51)
[2022-06-21] MEDS: Multivitamins,Ther W-Minerals Tablet 1 TABLET PO (07:51)
[2022-06-21] MEDS: Potassium Chloride Oral Tablet 20 MEQ 40 MEQ PO (07:52)
[2022-06-21] MEDS: Allopurinol 300 MG Tablet PO (07:55)
--- NOTE | 2022-06-21 08:52 | PCM.DC ---
Discharge Instructions Diet Discharge Diet: 1800 Calorie Control Diet Activity Discharge Activity: Return to Normal Activity and May Not Drive Weight Bearing Status: Weight bearing as tolerated Dressing / Incision Call your doctor if you observe: Fever of 101 or Higher, Coldness, Increased Pain, Numbness or Tingling, Change in Color, Inability to urinate, Inability to have a bowel movement, Shortness of breath, Dizziness, Fainting spells, Swelling in the ankles, Chest pain, Prolonged hiccupping, Increased palpitations (irregular heartbeat), Calf discomfort and Uncontrolled pain Follow Up Care Test Results: Test results from this visit will be discussed in further detail at your follow-up appointment, if applicable. Discharge Plan Admission Admit Date/Time: 06/19/22 17:15 Primary Reason for Your Visit: Acute hyponatremia Attending Provider: Pierre Askew Primary Care Provider: Marcelino Moon Consulting Providers: Darren Hendrickson ; Angelique Garcia Discharge Orders/Prescriptions Prescriptions: New metoprolol succinate 50 mg Tablet Extended Release 24 Hr 50 mg PO DAILY Qty: 30 0RF Continued folic acid 1 mg tablet 1 mg PO DAILY insulin lispro 100 unit/mL solution 10 unit subcut TIDCM insulin glargine 100 unit/mL solution 20 unit subcut QHS levothyroxine 175 mcg tablet 175 mcg PO DAILY triamcinolone acetonide 0.5 % cream 1 applic topical BID allopurinol 300 MG tablet 300 mg PO DAILY albuterol sulfate 1 INHALER inhaler 2 puff inhalation Q4H PRN PRN (Reason: Wheezing) cholecalciferol (vitamin D3) 25 mcg (1,000 unit) tablet 1,000 unit PO DAILY aspirin 81 mg Tablet,Delayed Release (Dr/Ec) 81 mg PO DAILY warfarin 4 mg tablet 6 mg PO SUTU Rx Instructions: TAKE 1 1/2 TABLETS (TOTAL OF 6MG) ON SUNDAYS AND TUESDAYS AND 1 TABLET ALL OTHER DAYS (4MG) Centrum Chewables 8 mg-400 mcg- 10 mcg Tablet,Chewable 1 tab PO DAILY pravastatin 40 mg tablet 40 mg PO DAILY metoprolol succinate 50 mg tablet extended release 24 hr 50 mg PO DAILY warfarin 4 mg tablet 4 mg PO Protocol: Dose Management Condition: Sunday Dose/Route: 6 mg Instruction: 1.5 x 4 mg tablets Condition: Sunday Dose/Route: 4 mg Instruction: 1 x 4 mg tablet Condition: Sunday Dose/Route: 6 mg Instruction: 1.5 x 4 mg tablets Condition: Sunday Dose/Route: 4 mg Instruction: 1 x 4 mg tablet Condition: Dose/Route: 4 mg Instruction: 1 x 4 mg tablet Condition: Sunday Dose/Route: 4 mg Instruction: 1 x 4 mg tablet Condition: Sunday Dose/Route: 4 mg Instruction: 1 x 4 mg tablet Protocol Text: Adjustment Start Date: Sunday06/12/22 INR Value: 2.1 INR Date: 06/12/22 Recheck Date: 07/10/22 Rx Instructions: TAKE 1 AND 1/2 TABLET BY MOUTH SUNDAY AND SUNDAY AND TAKE 1 TABLET BY ALL OTHER DAYS flecainide 100 mg tablet 100 mg PO BID amlodipine 10 mg tablet 10 mg PO DAILY Qty: 90 3RF losartan 50 mg tablet 50 mg PO BID Qty: 180 3RF Rx Instructions: Held Invokana 100 mg tablet 100 mg PO DAILY Hold Instructions: Hold for 1 week. Follow-up with the editorial project manager. furosemide 40 mg tablet 40 mg PO BID Qty: 180 3RF Hold Instructions: Hold furosemide now. Start furosemide 40 mg daily on Sunday or Sunday depending on leg swelling. Take an additional 40 mg dose at 5 PM for increased leg swelling or weight gain 5 pounds in 1 week. Discontinued metolazone 2.5 mg tablet 2.5 mg PO .Twice a week Referrals / Follow Up: Darren Hendrickson MD [Med Staff - Consulting] - Within 2 Weeks (Advised follow-up with BMP, phosphorus and magnesium) Marcelino Moon DO [Primary Care Provider] - Disposition Disposition (needs filled in before D/C Order can be placed): Home, Self Care
[2022-06-21 09:14] VITALS: BP 138/59; PULSE 63
[2022-06-21] MEDS: Metoprolol(XL)Succ 50 MG Tablet PO (09:14)
[2022-06-21] MEDS: Cholecalciferol (VIT D3) 25 MCG TABLET (1,000 UNITS) PO (09:14)
[2022-06-21] MEDS: amLODIPine 10 MG Tablet PO (09:14)
[2022-06-21] MEDS: Flecainide 100 MG Tablet PO (09:14)
[2022-06-21] MEDS: Pravastatin 40 MG Tablet PO (09:15)
[2022-06-21] MEDS: Losartan Potassium 50 MG Tablet PO (09:15)
[2022-06-21] MEDS: Insulin Glargine-YFGN 100 UNIT/ML Pen 17 UNIT SC (09:15)
[2022-06-21 09:30] VITALS: BP 138/59; BP 138/89; PULSE 63; RESP 18; TEMP 36.6; O2SAT 96
[2022-06-21] MEDS: Insulin Lispro 100 UNIT/ML INSULN.PEN SC (11:14)
--- NOTE | 2022-06-21 11:27 | PCM.PN.REN ---
Subjective Subjective Following for MEGAN on CKD Patient is sitting up in bed, denies any complaints. Hoping to go home today. States feeling much better. States appetite has improved. No headaches. Objective Data Objective Data Vital Signs: Vital Signs Temp Pulse Resp BP Pulse Ox O2 Del Method 97.8 F 63 18 138/89 H 96 Room Air 06/21/22 09:30 06/21/22 09:30 06/21/22 09:30 06/21/22 09:30 06/21/22 09:30 06/21/22 09:30 Oxygen Delivery Method Room Air Weight: 86.9 kg Body Mass Index (BMI) 35.0 Intake & Output: Intake and Output for Last 24 Hours 06/19/22 06/20/22 06/21/22 23:59 23:59 23:59 Intake Total 980 / 980 2638.33 / 2638.33 Output Total 120 / 120 Balance 980 / 980 2518.33 / 2518.33 Lab / Micro Data Result Diagrams: 06/20/22 03:53 06/21/22 06:00 Labs: Laboratory Results - last 24 hr 06/20/22 16:03: POC Glucose 150 H 06/20/22 22:24: POC Glucose 150 H 06/21/22 06:00: Sodium 127 L, Potassium 3.7, Chloride 90 L, Carbon Dioxide 27.0, BUN 71 H, Creatinine 2.22 H, Estim Creat Clear Calc 15.19, Est GFR (MDRD) Af Amer 27 L, Est GFR (MDRD) Non-Af 22 L, BUN/Creatinine Ratio 32.0 H, Glucose 101, Calcium 8.7, Phosphorus 3.5, Albumin 2.9 L 06/21/22 06:00: PT 24.1 H, INR 2.2 06/21/22 06:25: POC Glucose 109 H Rhythm Strip Rhythm Strip: Paced Rate: 65 Physical Exam Narrative Alert and oriented x3, no apparent distress Lung sounds clear anteriorly and posteriorly, no wheezes rhonchi rales noted. On room air S1, S2, rhythm controlled Abdomen soft, nontender, positive bowel sounds x4 quadrants No edema noted bilateral lower legs or feet Assessment & Plan Assessment/Plan (1) Acute hyponatremia: (2) MEGAN (acute kidney injury): (3) CKD (chronic kidney disease) stage 4, GFR 15-29 ml/min: (4) Hypokalemia: PLAN: Plan - Nonoliguric, hypovolemic MEGAN on CKD from volume depletion, overdiuresis. Serum creatinine 2.67 mg/dL on admission, renal function improved with serum creatinine of 2.22 mg/dL as of today. Overall renal function stable. There is no acute indication for [employer]. Renal function near baseline. - Hyponatremia; admission sodium of 117. Started on IVF and furosemide/ metolazone were stopped. She received IVF for ~24hours. Off IVF for the last 24hours. Hyponatremia possibly from volume depletion, poor oral intake, nausea/vomiting, diuretics. Sodium 127 today. She will continue off diuretics for the next few days. Baseline sodium essentially normal. - Chronic kidney disease stage IV with baseline creatinine around 1.9 to 2.3 mg/dL. She has a history of proteinuria, last urine protein creatinine ratio 1 g as of March 2022. Patient is on losartan. Followed by Dr. Hendrickson in [place]. - Blood pressures are acceptable on Toprol XL, losartan, amlodipine -Hypokalemia; resolved - discussed with Dr. Chand. Guerra for discharge per renal. Patient to follow-up with us in office. Discussed with patient no further metolazone. She can start back taking Lasix 40 mg daily starting Sunday or Sunday. Can go back to twice daily Lasix next week. Encourage patient to weigh herself every a.m. after she voids. Also reviewed appropriate amount of fluid intake per day. Patient aware she can contact our office if she has any questions. Her weight in the office in May was 204 pounds. Current weight is now 191 pounds.
[2022-06-21 11:35] LABS: Bedside Glucose 209 mg/dL (74-106)
--- NOTE | 2022-06-21 13:07 | DS.PCM_ITS ---
Providers Date of Admission: 06/19/22 Date of Discharge: 06/21/22 Primary Care Physician: Dr. Marcelino Moon, Consultations 06/19/22 19:48 Consult: Nephrology Routine Consulting Provider: Darren Hendrickson Reason for Consult: hyponatremia EMERGENT Consult: No MD Notified: Yes Date Notified: 06/19/22 Time Notified: 19:48 Method of Notification: Text Reason For Visit: ACUTE HYPONATREMIA Diagnosis Discharge Diagnosis (1) Acute hyponatremia: Status: Acute Code(s): E87.1 - Hypo-osmolality and hyponatremia (2) MEGAN (acute kidney injury): Status: Acute Code(s): N17.9 - Acute kidney failure, unspecified (3) CKD (chronic kidney disease) stage 4, GFR 15-29 ml/min: Status: Chronic Code(s): N18.4 - Chronic kidney disease, stage 4 (severe) (4) Hypokalemia: Status: Acute Code(s): E87.6 - Hypokalemia Medications at Discharge Home Medications albuterol sulfate 90 mcg/actuation aerosol inhaler 2 puff inhalation Q4H PRN PRN Wheezing 08/10/15 allopurinol 300 mg tablet 300 mg PO DAILY gout 08/10/15 folic acid 1 mg tablet 1 mg PO DAILY SUPPLEMENT 12/04/19 canagliflozin 100 mg tablet (Invokana) 100 mg PO DAILY HEART 04/25/21 cholecalciferol (vitamin D3) 25 mcg (1,000 unit) tablet 1,000 unit PO DAILY supplement 04/25/21 insulin glargine 100 unit/mL subcutaneous solution 20 unit subcut QHS blood glucose 04/25/21 insulin lispro 100 unit/mL subcutaneous solution 10 unit subcut TIDCM blood glucose 04/25/21 levothyroxine 175 mcg tablet 175 mcg PO DAILY THYROID 04/25/21 triamcinolone acetonide 0.5 % topical cream 1 applic topical BID RASH 04/25/21 amlodipine 10 mg tablet 10 mg PO DAILY blood pressure #90 tabs 06/14/21 losartan 50 mg tablet 50 mg PO BID HTN #180 tabs 03/06/22 furosemide 40 mg tablet 40 mg PO BID diuretics #180 tabs 05/09/22 aspirin 81 mg tablet,delayed release 81 mg PO DAILY BLOOD THINNER 06/19/22 flecainide 100 mg tablet 100 mg PO BID HEART 06/19/22 metoprolol succinate 50 mg tablet,extended release 24 hr 50 mg PO DAILY HEART 06/19/22 [id number] 8 mg-folic ac 400 mcg-vit K 10 mcg chew tablet (Centrum Chewables) 1 tab PO DAILY HEALTH MAINTENANCE 06/19/22 pravastatin 40 mg tablet 40 mg PO DAILY CHOLESTEROL 06/19/22 warfarin 4 mg tablet 4 mg PO MOWETHFRSA BLOOD THINNER 06/19/22 warfarin 4 mg tablet 6 mg PO SUTU BLOOD THINNER 06/19/22 metoprolol succinate 50 mg tablet,extended release 24 hr 50 mg PO DAILY #30 tabs 06/21/22 Hospital Course Summary of Care Provided Hospital Course: This 82-year-old female admitted with headache for 1 month, generalized weakness, malaise nausea vomiting 2 times on the day of admission. #Acute hyponatremia most probably due to volume depletion from diuretic: Patient admitted to PCU. Patient was on Lasix and metolazone. Diuretic discontinued. Monitor serum sodium with a goal to correct sodium by 6 to 8 mL over next 24 hours. Initially sodium was checked every 4 hours. * Admitting sodium is 117, previous sodium in march 2022 was 137. * Most recent sodium is 124. Normal saline was decreased to 75 mill per minute and then discontinued later on. Repeat sodium tomorrow a.m. serum osmolarity 285. Urine osmolality 253, sodium 46. Mild hypokalemia, potassium is getting replaced. 06/21: Her symptoms have resolved. Serum sodium 127, potassium 3.9. Advised to restart furosemide 40 mg daily on Sunday,, 06/24 or Monday 06/25 depending upon the leg swelling. Currently she does not have leg swelling. Take an additional 40 mg dose at 5 PM for increased leg swelling or weight gain 5 pounds in 1 week. She is feeling more stronger. PT and OT was done. Patient has wheeled walker, straight cane, raised toilet seat and shower chair.Patient walked in the hallway without issue. Recommended home discharge. #Headache * could be due to hyponatremia also * if it doesn't improve, get MRI, as CT brain showed no acute intracranial pathology 06/21: Headache resolved. #MEGAN on CKD, stage IV: * Creatinine is 2.67 with a baseline of around 1.9. * Continue gentle hydration with IV fluids. 06/21 her kidney function is on baseline with estimated creatinine clearance 61/min Type 2 diabetes mellitus: * Insulin sliding scale. Accu-Cheks ACHS. * On home dose of Lantus. * Advised to hold canagliflozin/Invokana for 1 week because of hypokalemia. Check with the nursing home assistant before resumption. #Hypertension: On amlodipine, metoprolol and losartan #Hypothyroidism: On Synthroid. TSH normal. #Hyperlipidemia: #Paroxysmal A. fib: On metoprolol. Also on flecainide. On Coumadin. INR is 2.7. Try to keep K around 4, magnesium 2.0. Hold warfarin as INR is increasing #Sick sinus syndrome s/p pacemaker insertion: stable DVT prophylaxis: on coumadin. INR is therapeutic Code status: full code * Patient counseled extensively about different types of CODE STATUS including full code, DNR CCA and DNR CCA. Patient elects to be full code. Discharge medication reconciliation done. Discharge follow-up instructions completed. Discharge process discussed with the patient and all questions were answered to patient's satisfaction. Discharged home Total time spent, exact 35 minutes on discharge meds reconciliation, examination, coordination of care with nurses and ancillary staff, review of imaging and blood test and discussion with the patient on follow-up instructions. Laboratory Results 06/20/22 16:03: POC Glucose 150 H 06/20/22 22:24: POC Glucose 150 H 06/21/22 06:00: Sodium 127 L, Potassium 3.7, Chloride 90 L, Carbon Dioxide 27.0, BUN 71 H, Creatinine 2.22 H, Estim Creat Clear Calc 15.19, Est GFR (MDRD) Af Amer 27 L, Est GFR (MDRD) Non-Af 22 L, BUN/Creatinine Ratio 32.0 H, Glucose 101, Calcium 8.7, Phosphorus 3.5, Albumin 2.9 L 06/21/22 06:00: PT 24.1 H, INR 2.2 06/21/22 06:25: POC Glucose 109 H 06/21/22 11:10: POC Glucose 209 H Physical Exam Narrative Seen and examined. Patient admitted with nausea, vomiting, headache and weakness and lab finding of severe hyponatremia. She has headache mainly frontal area, sinus heaviness and dripping in nose and throat. She states that she has dropsy probably therefore she is on diuretic. She denies blurred vision focal weakness slurred speech, seizure, confusion disorientation. Denies recent fall. She uses cane for balance. Physical exam General: Alert, Oriented x3, Cooperative HEENT: Atraumatic, PERRLA, EOMI, Normocephalic Oral: No Gingival or Mucosal Lesions/ Ulcerations Neck: Supple, No JVD, Negative Carotid Bruits Lungs: Air entry diminished in bilateral lung bases. No crepitation/rhonchi Cardiovascular: Regular rate, Regular Rhythm, Normal S1, Normal S2, No murmurs Abdomen: Bowel Sounds Present, Soft, Non Tender, Non-Distended : No renal angle tenderness. No suprapubic tenderness. Extremities: No edema, Capillary Refill Less than 3 Seconds Skin: No rashes, No breakdown Musculoskeletal: No Tenderness to Palpation of Joints or Extremities. Muscle strength 5/5 at major joints Neurological: Cranial nerves II-XII grossly intact, DTR 2+/4, no gross difference in sensation Psych/Mental Status: Normal Affect, Appropriate. Const alert, oriented x3 and no apparent distress General Appearance: cooperative HEENT normocephalic, head/scalp atraumatic and hearing grossly normal bilaterally Eyes PERRL, EOMs intact bilaterally and conjunctivae normal Neck no lymphadenopathy, supple and no JVD Resp normal respiratory effort, no retractions, no use of accessory muscles and clear to auscultation bilaterally Cardio regular rate, regular rhythm, S1 normal heart sound, S2 normal heart sound and no murmurs GI normal to inspection, nondistended, normoactive bowel sounds, soft to palpation and non-tender Extremity normal to inspection, full ROM and no clubbing, cyanosis or edema Neuro oriented x3, CN's II-XII intact bilaterally, moves all extremities and no focal motor deficits Sensorium / Orientation: awake, alert, oriented to person, oriented to place and oriented to time Psych affect normal Weight / BMI Weight Weight: 191 lb 9.307 oz Body Mass Index (BMI) 35.0 ABG / Lab / Microbiology Data Result Diagrams: 06/20/22 03:53 06/21/22 06:00 Laboratory: Laboratory Results - last 24 hr 06/20/22 16:03: POC Glucose 150 H 06/20/22 22:24: POC Glucose 150 H 06/21/22 06:00: Sodium 127 L, Potassium 3.7, Chloride 90 L, Carbon Dioxide 27.0, BUN 71 H, Creatinine 2.22 H, Estim Creat Clear Calc 15.19, Est GFR (MDRD) Af Amer 27 L, Est GFR (MDRD) Non-Af 22 L, BUN/Creatinine Ratio 32.0 H, Glucose 101, Calcium 8.7, Phosphorus 3.5, Albumin 2.9 L 06/21/22 06:00: PT 24.1 H, INR 2.2 06/21/22 06:25: POC Glucose 109 H 06/21/22 11:10: POC Glucose 209 H D/C Instructions Discharge Diet: 1800 Calorie Control Diet Weight Bearing Status: Weight bearing as tolerated Call your doctor if you observe: Fever of 101 or Higher, Coldness, Increased Pain, Numbness or Tingling, Change in Color, Inability to urinate, Inability to have a bowel movement, Shortness of breath, Dizziness, Fainting spells, Swelling in the ankles, Chest pain, Prolonged hiccupping, Increased palpitations (irregular heartbeat), Calf discomfort and Uncontrolled pain Meaningful Use Info Meaningful Use Diagnoses (Choose all that apply): None applicable Discharge Plan Admission Admit Date/Time: 06/19/22 17:15 Primary Reason for Your Visit: Acute hyponatremia Attending Provider: Pierre Askew Primary Care Provider: Marcelino Moon Consulting Providers: Darren Hendrickson ; Angelique Garcia Discharge Orders/Prescriptions Prescriptions: New metoprolol succinate 50 mg Tablet Extended Release 24 Hr 50 mg PO DAILY Qty: 30 0RF Continued folic acid 1 mg tablet 1 mg PO DAILY insulin lispro 100 unit/mL solution 10 unit subcut TIDCM insulin glargine 100 unit/mL solution 20 unit subcut QHS levothyroxine 175 mcg tablet 175 mcg PO DAILY triamcinolone acetonide 0.5 % cream 1 applic topical BID allopurinol 300 MG tablet 300 mg PO DAILY albuterol sulfate 1 INHALER inhaler 2 puff inhalation Q4H PRN PRN (Reason: Wheezing) cholecalciferol (vitamin D3) 25 mcg (1,000 unit) tablet 1,000 unit PO DAILY aspirin 81 mg Tablet,Delayed Release (Dr/Ec) 81 mg PO DAILY warfarin 4 mg tablet 6 mg PO SUTU Rx Instructions: TAKE 1 1/2 TABLETS (TOTAL OF 6MG) ON SUNDAYS AND TUESDAYS AND 1 TABLET ALL OTHER DAYS (4MG) Centrum Chewables 8 mg-400 mcg- 10 mcg Tablet,Chewable 1 tab PO DAILY pravastatin 40 mg tablet 40 mg PO DAILY metoprolol succinate 50 mg tablet extended release 24 hr 50 mg PO DAILY warfarin 4 mg tablet 4 mg PO Protocol: Dose Management Condition: Sunday Dose/Route: 6 mg Instruction: 1.5 x 4 mg tablets Condition: Sunday Dose/Route: 4 mg Instruction: 1 x 4 mg tablet Condition: Sunday Dose/Route: 6 mg Instruction: 1.5 x 4 mg tablets Condition: Sunday Dose/Route: 4 mg Instruction: 1 x 4 mg tablet Condition: Dose/Route: 4 mg Instruction: 1 x 4 mg tablet Condition: Sunday Dose/Route: 4 mg Instruction: 1 x 4 mg tablet Condition: Sunday Dose/Route: 4 mg Instruction: 1 x 4 mg tablet Protocol Text: Adjustment Start Date: Sunday06/12/22 INR Value: 2.1 INR Date: 06/12/22 Recheck Date: 07/10/22 Rx Instructions: TAKE 1 AND 1/2 TABLET BY MOUTH SUNDAY AND SUNDAY AND TAKE 1 TABLET BY ALL OTHER DAYS flecainide 100 mg tablet 100 mg PO BID amlodipine 10 mg tablet 10 mg PO DAILY Qty: 90 3RF losartan 50 mg tablet 50 mg PO BID Qty: 180 3RF Rx Instructions: Held Invokana 100 mg tablet 100 mg PO DAILY Hold Instructions: Hold for 1 week. Follow-up with the nursing home assistant. furosemide 40 mg tablet 40 mg PO BID Qty: 180 3RF Hold Instructions: Hold furosemide now. Start furosemide 40 mg daily on Sunday or Sunday depending on leg swelling. Take an additional 40 mg dose at 5 PM for increased leg swelling or weight gain 5 pounds in 1 week. Discontinued metolazone 2.5 mg tablet 2.5 mg PO .Twice a week Referrals / Follow Up: Darren Hendrickson MD [Med Staff - Consulting] - Within 2 Weeks (Advised follow- up with BMP, phosphorus and magnesium) Marcelino Moon DO [Primary Care Provider] - Disposition Disposition (needs filled in before D/C Order can be placed): Home, Self Care Charges/Coding Visit Charges Inpatient E&M: 23933 Disch Hosp
--- NOTE | 2022-06-21 13:22 | CASEMGMT ---
Son had inquired about HHC for pt but pt declines HHC at this time. Pt/son aware they can contact PCP once home, if pt changes her mind. Rosalia ABBOTT CM
--- NOTE | 2022-06-21 14:34 | PHA.DC.MR ---
Pharmacy Service has performed discharge medication reconciliation for this patient. The patient's discharge medication list was reviewed for discrepancies and discrepancies were resolved. Home Medications albuterol sulfate 90 mcg/actuation aerosol inhaler 2 puff inhalation Q4H PRN PRN Wheezing 08/10/15 allopurinol 300 mg tablet 300 mg PO DAILY gout 08/10/15 folic acid 1 mg tablet 1 mg PO DAILY SUPPLEMENT 12/04/19 canagliflozin 100 mg tablet (Invokana) 100 mg PO DAILY HEART 04/25/21 cholecalciferol (vitamin D3) 25 mcg (1,000 unit) tablet 1,000 unit PO DAILY supplement 04/25/21 insulin glargine 100 unit/mL subcutaneous solution 20 unit subcut QHS blood glucose 04/25/21 insulin lispro 100 unit/mL subcutaneous solution 10 unit subcut TIDCM blood glucose 04/25/21 levothyroxine 175 mcg tablet 175 mcg PO DAILY THYROID 04/25/21 triamcinolone acetonide 0.5 % topical cream 1 applic topical BID RASH 04/25/21 amlodipine 10 mg tablet 10 mg PO DAILY blood pressure #90 tabs 06/14/21 losartan 50 mg tablet 50 mg PO BID HTN #180 tabs 03/06/22 furosemide 40 mg tablet 40 mg PO BID diuretics #180 tabs 05/09/22 aspirin 81 mg tablet,delayed release 81 mg PO DAILY BLOOD THINNER 06/19/22 flecainide 100 mg tablet 100 mg PO BID HEART 06/19/22 [id number] 8 mg-folic ac 400 mcg-vit K 10 mcg chew tablet (Centrum Chewables) 1 tab PO DAILY HEALTH MAINTENANCE 06/19/22 pravastatin 40 mg tablet 40 mg PO DAILY CHOLESTEROL 06/19/22 warfarin 4 mg tablet 4 mg PO MOWETHFRSA BLOOD THINNER 06/19/22 warfarin 4 mg tablet 6 mg PO SUTU BLOOD THINNER 06/19/22 metoprolol succinate 50 mg tablet,extended release 24 hr 50 mg PO DAILY #30 tabs 06/21/22
== END 2022-06-21 14:36 | disposition home or self-care (01) | DRG 641 ==
LOC: ED 17:03 → PCU 17:47
PROVIDERS: Nurse Practitioner Adult Health; Admitting Provider Student in an Organized Health Care Education/Training Program; Emergency Provider Emergency Medicine; PCP Student in an Organized Health Care Education/Training Program; Visit Provider Internal Medicine
DX: E87.1 Hypo-osmolality and hyponatremia (principal); N17.9 Acute kidney failure, unspecified; N18.4 Chronic kidney disease, stage 4 (severe); I49.5 Sick sinus syndrome; E11.22 Type 2 diabetes mellitus with diabetic chronic kidney disease; I48.0 Paroxysmal atrial fibrillation; E03.9 Hypothyroidism, unspecified; E78.5 Hyperlipidemia, unspecified; E86.9 Volume depletion, unspecified; Z79.4 Long term (current) use of insulin; I12.9 Hypertensive chronic kidney disease with stage 1 through stage 4 chronic kidney disease, or unspecified chronic kidney disease; N18.2 Chronic kidney disease, stage 2 (mild); M10.9 Gout, unspecified; E87.6 Hypokalemia; Z66 Do not resuscitate; Z95.0 Presence of cardiac pacemaker; Z86.73 Personal history of transient ischemic attack (TIA), and cerebral infarction without residual deficits; Z79.01 Long term (current) use of anticoagulants; Z79.82 Long term (current) use of aspirin; Z51.5 Encounter for palliative care
CPT/HCPCS: 36415; 70450; 71045; 80048; 80053; 80069; 81001; 82962; 83880; 83930; 83935; 84300; 84443; 85025; 85610; 93005; 97161; 97802; 99284; J7030; J7040; A4216; J2405

== ENCOUNTER 2022-07-25 09:38 | Outpatient (RCR) | payer MEDICARE, OTHER, SELFPAY ==
[2022-06-30 20:25] VITALS: BMI 36.5
[2022-07-18 15:28] LABS: International Normalized Ratio 3.6; Prothrombin Time (Protime)PT. 35.7 SECONDS (11.7-14.9)
[2022-07-25 09:57] LABS: International Normalized Ratio 2.3; Prothrombin Time (Protime)PT. 24.8 SECONDS (11.7-14.9)
[2022-07-25 10:18] LABS: AST(SGOT) 23 U/L (15-37); Alanine Aminotransfer ALT/SGPT 29 U/L (13-56); Albumin, Serum 3.1 g/dL (3.2-5.0); Alkaline Phosphatase 115 U/L (45-117); Bilirubin, Direct 0.12 mg/dL (0.00-0.30); Cholesterol 139 mg/dL (200); Globulin 4.2 g/dL (2.2-4.2); High Density Lipoprotein 38 mg/dL; Protein, Total 7.3 g/dL (6.4-8.2); Triglycerides 130 mg/dL; Very Low Density Lipoprotein 26 mg/dL (5-40)
== END 2022-07-25 18:00 | disposition home or self-care (01) ==
LOC: LAB 09:38
PROVIDERS: PCP Student in an Organized Health Care Education/Training Program; Referring Provider Internal Medicine Cardiovascular Disease; Visit Provider Internal Medicine Cardiovascular Disease
DX: I48.0 Paroxysmal atrial fibrillation (principal); Z79.01 Long term (current) use of anticoagulants; E78.5 Hyperlipidemia, unspecified
CPT/HCPCS: 36415; 80061; 80076; 85610

== ENCOUNTER 2022-08-22 14:41 | Outpatient (RCR) | payer MEDICARE, OTHER, SELFPAY ==
[2022-08-01 10:01] VITALS: BMI 36.5
[2022-08-22 15:38] LABS: Hematocrit 37.7 % (37-47); Hemoglobin 12.4 g/dL (12.0-15.0); Mean Corp Hgb Conc 32.9 g/dL (32-36); Mean Corpuscular Hgb 30.8 pg (27.0-32.0); Mean Corpuscular Volume 93.5 fL (81-99); Mean Platelet Vol. 10.8 fl (6.2-12.0); Platelet Count 255 K/mm3 (150-450); RBC Distribution Width CV 15.9 % (11.6-14.6); RBC Distribution Width SD 54.4 fl (35.1-43.9); Red Blood Count 4.03 M/mm3 (4.2-5.4); White Blood Count 9.1 K/mm3 (4.4-11.0)
[2022-08-22 15:47] LABS: Prothrombin Time (Protime)PT. 30.6 SECONDS (11.7-14.9)
[2022-08-22 16:05] LABS: Anion Gap 7 (5-15); BUN 42 mg/dL (7-18); BUN/Creat Ratio 21.8 RATIO (10-20); Calcium,Total 8.3 mg/dL (8.5-10.1); Chloride 105 mmol/L (98-107); Creatinine, Serum 1.93 mg/dL (0.55-1.02); EST Glomerular Filtration Rate 26 mL/min (>60); Est Glom Filt Rate - Afr Amer 32 mL/min (>60); Glucose 116 mg/dL (74-106); Potassium 4.6 mmol/L (3.5-5.1); Sodium Level 138 mmol/L (136-145)
== END 2022-08-30 18:00 | disposition home or self-care (01) ==
LOC: LAB 14:41
PROVIDERS: PCP Student in an Organized Health Care Education/Training Program; Referring Provider Internal Medicine Cardiovascular Disease; Visit Provider Internal Medicine Cardiovascular Disease
DX: I48.0 Paroxysmal atrial fibrillation (principal); Z79.01 Long term (current) use of anticoagulants
CPT/HCPCS: 36415; 80048; 85027; 85610

== ENCOUNTER 2022-09-15 13:02 | Outpatient (RCR) | payer MEDICARE, OTHER, SELFPAY ==
[2022-08-30 22:42] VITALS: BMI 36.5
[2022-09-15 13:50] LABS: International Normalized Ratio 2.1
== END 2022-09-15 18:00 | disposition home or self-care (01) ==
LOC: LAB 13:02
PROVIDERS: PCP Student in an Organized Health Care Education/Training Program; Referring Provider Internal Medicine Cardiovascular Disease; Visit Provider Internal Medicine Cardiovascular Disease
DX: I48.0 Paroxysmal atrial fibrillation (principal); Z79.01 Long term (current) use of anticoagulants
CPT/HCPCS: 36415; 85610

== ENCOUNTER 2022-10-31 10:49 | Outpatient (RCR) | payer MEDICARE, OTHER, SELFPAY ==
[2022-09-30 22:52] VITALS: BMI 36.5
[2022-10-19 12:37] LABS: International Normalized Ratio 1.8; Prothrombin Time (Protime)PT. 20.7 SECONDS (11.7-14.9)
[2022-10-19 12:58] LABS: Anion Gap 5 (5-15); BUN 52 mg/dL (7-18); BUN/Creat Ratio 28.6 RATIO (10-20); Chloride 108 mmol/L (98-107); Creatinine, Serum 1.82 mg/dL (0.55-1.02); EST Glomerular Filtration Rate 28 mL/min (>60); Est Glom Filt Rate - Afr Amer 34 mL/min (>60); Glucose 114 mg/dL (74-106); Potassium 4.1 mmol/L (3.5-5.1); Sodium Level 140 mmol/L (136-145)
[2022-10-19 13:59] LABS: Creatinine, Urine (random) < 13.00 mg/dL (NO RANGE EST.); Protein, Urine (Random) 22.6 mg/dL (<11.9)
[2022-10-31 11:18] LABS: International Normalized Ratio 1.7; Prothrombin Time (Protime)PT. 19.5 SECONDS (11.7-14.9)
== END 2022-10-31 12:00 | disposition home or self-care (01) ==
LOC: LAB 10:49
PROVIDERS: PCP Student in an Organized Health Care Education/Training Program; Referring Provider Internal Medicine Cardiovascular Disease; Visit Provider Internal Medicine Cardiovascular Disease
DX: I48.0 Paroxysmal atrial fibrillation (principal); Z79.01 Long term (current) use of anticoagulants; I12.9 Hypertensive chronic kidney disease with stage 1 through stage 4 chronic kidney disease, or unspecified chronic kidney disease; R80.9 Proteinuria, unspecified; N18.9 Chronic kidney disease, unspecified
CPT/HCPCS: 36415; 80048; 82570; 84156; 85610

== ENCOUNTER 2022-11-14 10:39 | Outpatient (RCR) | payer MEDICARE, OTHER, SELFPAY ==
[2022-11-01 07:52] VITALS: BMI 36.5
[2022-11-14 11:38] LABS: International Normalized Ratio 2.6; Prothrombin Time (Protime)PT. 27.6 SECONDS (11.7-14.9)
== END 2022-11-14 18:00 | disposition home or self-care (01) ==
LOC: LAB 10:39
PROVIDERS: Internal Medicine Cardiovascular Disease; PCP Student in an Organized Health Care Education/Training Program; Referring Provider Internal Medicine Cardiovascular Disease; Visit Provider Internal Medicine Cardiovascular Disease
DX: I48.0 Paroxysmal atrial fibrillation (principal); Z79.01 Long term (current) use of anticoagulants
CPT/HCPCS: 36415; 85610

== ENCOUNTER 2022-12-09 11:53 | Emergency (ER) | payer MEDICARE, OTHER, SELFPAY ==
[2022-12-09] VITALS (10 sets, daily range): BP systolic 121–143; BP diastolic 65–97; PULSE 81–97; RESP 18–24; TEMP 36.8–36.9; O2SAT 87–94; BMI 35.4
--- NOTE | 2022-12-09 13:05 | RAD_ITS ---
INDICATION: Cough. EXAMINATION/TECHNIQUE: X-RAY - XR Chest 2 Views COMPARISON: 06/19/2022. FINDINGS: LINES/DEVICES: The chamber left-sided cardiac pacing device in stable position. LUNGS: Mild hypoventilatory changes in the right lung base. No new infiltrate is seen. MEDIASTINUM AND CARDIOVASCULAR STRUCTURES: Mild enlargement of the cardiac silhouette. Mild prominence of the pulmonary vasculature. Atherosclerotic calcifications of the thoracic aorta. BONES AND SOFT TISSUES: Stable soft tissues and osseous structures. RAD/Chest PA and Lateral IMPRESSION: Cardiomegaly and possible mild pulmonary venous congestion. Electronically Signed: Pasquale Loco MD at 13:59 EST ,
--- NOTE | 2022-12-09 13:07 | EX.ED.DYSGE1 ---
HPI <MAYRA Macias - Last Filed: 12/09/22 14:48> History of Present Illness Chief Complaint: Shortness of Breath Narrative Narrative: Patient is a 82-year-old female with history of CHF, hypertension, CAD, on Coumadin, history of diabetes, presents to the emergency department with 3 to 4 days of worsening cough, shortness of breath, difficulty laying flat. Patient was recently seen, placed on Zithromax, as well as a steroid burst, felt better. Patient states that her and her are both ill, and she is having difficulty catching her breath. Patient was 89% on room air here. Patient is doing well on 2 L. Patient does have a continued cough with clear sputum. PFSH <MAYRA Macias - Last Filed: 12/09/22 14:48> [facility] Medical History Garcia's palsy Bradycardia Cerebrovascular disease CKD (chronic kidney disease) stage 2, GFR 60-89 ml/min Diabetes mellitus Dyslipidemia Essential hypertension Fatty liver Gout HLD (hyperlipidemia) HTN (hypertension) Hypothyroid Osteoporosis Ovarian cyst, left Paroxysmal atrial fibrillation Pre-syncope Sick sinus syndrome Sinus pause Home Medications albuterol sulfate 90 mcg/actuation aerosol inhaler 2 puff inhalation Q4H PRN PRN Wheezing 08/10/15 [History Last Taken 10/02/18] allopurinol 300 mg tablet 300 mg PO DAILY gout 08/10/15 [History Last Taken 06/19/22] folic acid 1 mg tablet 1 mg PO DAILY SUPPLEMENT 12/04/19 [History Last Taken 06/19/22] canagliflozin 100 mg tablet (Invokana) 100 mg PO DAILY HEART 04/25/21 [History Last Taken 06/18/22] cholecalciferol (vitamin D3) 25 mcg (1,000 unit) tablet 1,000 unit PO DAILY supplement 04/25/21 [History Last Taken 06/19/22] insulin glargine 100 unit/mL subcutaneous solution 20 unit subcut QHS blood glucose 04/25/21 [History Last Taken 06/18/22] insulin lispro 100 unit/mL subcutaneous solution 10 unit subcut TIDCM blood glucose 04/25/21 [History Last Taken 06/19/22] levothyroxine 175 mcg tablet 175 mcg PO DAILY THYROID 04/25/21 [History Last Taken 06/19/22] triamcinolone acetonide 0.5 % topical cream 1 applic topical BID RASH 04/25/21 [History Last Taken Unknown] amlodipine 10 mg tablet 10 mg PO DAILY blood pressure #90 tabs 06/14/21 [Rx Last Taken 06/19/22] losartan 50 mg tablet 50 mg PO BID HTN #180 tabs 03/06/22 [Rx Last Taken 06/19/22] furosemide 40 mg tablet 40 mg PO BID diuretics #180 tabs 05/09/22 [Rx Last Taken 06/19/22] aspirin 81 mg tablet,delayed release 81 mg PO DAILY BLOOD THINNER 06/19/22 [History Last Taken 06/19/22] mdstcxci-uwykiurw-ntse 8 mg-folic ac 400 mcg-vit K 10 mcg chew tablet (Centrum Chewables) 1 tab PO DAILY HEALTH MAINTENANCE 06/19/22 [History Last Taken 06/19/22] pravastatin 40 mg tablet 40 mg PO DAILY CHOLESTEROL 06/19/22 [History Last Taken 06/18/22] warfarin 4 mg tablet 4 mg PO MOWETHFRSA BLOOD THINNER 06/19/22 [History Last Taken 06/17/22] warfarin 4 mg tablet 6 mg PO SUTU BLOOD THINNER 06/19/22 [History Last Taken 06/18/22] metoprolol succinate 50 mg tablet,extended release 24 hr 50 mg PO DAILY #30 tabs 06/21/22 [Rx Last Taken Unknown] flecainide 100 mg tablet 100 mg PO BID HEART #180 tabs 09/05/22 [Rx Last Taken Unknown] Allergy/AdvReac Type Severity Reaction Status Date / Time atorvastatin calcium AdvReac cough Verified 12/09/22 12:28 [From Lipitor] enalapril maleate AdvReac cough Verified 12/09/22 12:28 [From Vasotec] enalaprilat dihydrate AdvReac cough Verified 12/09/22 12:28 [From Vasotec] Family History Mother CVA (cerebral vascular accident) Hypertension Father Heart disease Myocardial infarction Son Overdose Surgical History Cardiac pacemaker in situ (10/28/18) History of appendectomy History of tubal ligation S/P laparoscopic appendectomy Social History Smoking Status: Never smoker alcohol intake: never substance use type: does not use caffeine: Yes Type: coffee Number of servings: 2 ROS <MAYRA Macias - Last Filed: 12/09/22 14:48> ROS ED ROS Narrative Constitutional: Negative for fever, weight loss, weakness. Positive for chills Eyes: Negative for vision loss, vision change, double vision ENT: Negative for any sore throat, ear pain, congestion Cardiovascular: Negative for any chest pain, tightness, palpitations Respiratory: Negative for any hemoptysis. Positive for cough, sputum production, dyspnea, dyspnea on exertion, orthopnea Gastrointestinal: Negative for any abdominal pain, nausea, vomiting, diarrhea, constipation, blood in stool, blood in vomit : Negative for any urinary frequency, dysuria, retention, blood in urine Muscle skeletal: Negative for any muscle joint pain, stiffness, arthralgias, neck pain, back pain. Positive for body aches Neurological: Negative for any headache, syncope, numbness or tingling, dizziness Skin: Negative for any rashes, lumps, itching, abrasions, lacerations Psychiatric: Negative for any depression, anxiety, stress, suicidal ideation, homicidal ideation Hematologic: Negative for any easy bruising, excessive bruising, easy bleeding Allergies: Negative for any eczema, hives, rash EXAM <MAYRA Macias - Last Filed: 12/09/22 14:48> Physical Exam Narrative Exam Narrative: Vital signs reviewed. Patient on room air was 89%. Patient does have a harsh cough. HEET: Head normocephalic atraumatic, TMs clear bilaterally. Posterior pharynx is clear, moist mucous membranes. Nares clear bilaterally. Neck: Supple with no lymphadenopathy or tenderness. No signs of meningismus, negative jolt sign. Cardiac: Regular rate and rhythm no murmurs gallops or rubs, equal peripheral pulses bilaterally. Respiratory: Patient had expiratory wheezes to bilateral upper and lower lobes, patient does have rhonchorous breath sounds of bilateral lower lobes.. No chest tenderness. Abdomen: Soft, nontender, nondistended. No abdominal bruit or pulsatile masses. No hepatosplenomegaly Extremities: +1 pitting edema to bilateral lower extremities. Patient states that this does happen from time to time. She is not concerned. There is no redness or signs of cellulitis. No signs or symptoms to suspect any DVT. Equal pulses., no signs of gross trauma or deformity. Active full range of motion of all extremities. Neuro: Cranial nerves II through XII intact, no focal neurological deficits. Skin: Clean dry and intact with no rash, purpura, petechiae, vesicles or pustules. Backs/flank: No CVA tenderness, no midline spinal tenderness, no deformity. Psych: Normal mood and affect. No SI, HI or acute psychosis. Const Vital Signs: 12/09/22 11:54 12/09/22 12:25 12/09/22 12:25 Temperature 98.4 F 98.4 F Temperature Source Temporal Oral Pulse Rate 89 87 92 Respiratory Rate 20 H 19 H 19 H Respiratory Effort Respiratory Pattern Blood Pressure 139/71 H 136/77 H 136/77 H Blood Pressure Mean 93 96 96 Pulse Ox 90 92 93 Oxygen Delivery Method Room Air Room Air Room Air Oxygen Flow Rate (L/min) 12/09/22 12:26 12/09/22 12:43 12/09/22 12:43 Temperature Temperature Source Pulse Rate Respiratory Rate Respiratory Effort Short of Breath Labored Accessory Muscle Use Respiratory Pattern Blood Pressure Blood Pressure Mean Pulse Ox 87 93 Oxygen Delivery Method Room Air Room Air Nasal Cannula Oxygen Flow Rate (L/min) 0.5 12/09/22 13:03 12/09/22 13:07 12/09/22 13:18 Temperature 98.3 F Temperature Source Oral Pulse Rate 90 85 81 Respiratory Rate 24 H 18 22 H Respiratory Effort Respiratory Pattern Normal Blood Pressure 143/97 H 143/97 H Blood Pressure Mean 112 112 Pulse Ox 91 93 Oxygen Delivery Method Nasal Cannula Nasal Cannula Oxygen Flow Rate (L/min) 0.5 1 12/09/22 13:18 12/09/22 14:13 12/09/22 14:13 Temperature 98.4 F 98.4 F Temperature Source Oral Oral Pulse Rate 87 87 Respiratory Rate 22 H 22 H Respiratory Effort Respiratory Pattern Tachypnea Blood Pressure 142/70 H 142/70 H Blood Pressure Mean 94 94 Pulse Ox 93 94 94 Oxygen Delivery Method Nasal Cannula Room Air Room Air Oxygen Flow Rate (L/min) 1 12/09/22 14:57 Temperature Temperature Source Pulse Rate 97 Respiratory Rate 18 Respiratory Effort Respiratory Pattern Blood Pressure 121/65 H Blood Pressure Mean Pulse Ox 90 Oxygen Delivery Method Oxygen Flow Rate (L/min) Positive well nourished and well developed General Appearance ED: well developed <Dr. Faustino Luo DO - Last Filed: 12/09/22 20:46> Physical Exam Const Vital Signs: 12/09/22 11:54 12/09/22 12:25 12/09/22 12:25 Temperature 98.4 F 98.4 F Temperature Source Temporal Oral Pulse Rate 89 87 92 Respiratory Rate 20 H 19 H 19 H Respiratory Effort Respiratory Pattern Blood Pressure 139/71 H 136/77 H 136/77 H Blood Pressure Mean 93 96 96 Pulse Ox 90 92 93 Oxygen Delivery Method Room Air Room Air Room Air Oxygen Flow Rate (L/min) 12/09/22 12:26 12/09/22 12:43 12/09/22 12:43 Temperature Temperature Source Pulse Rate Respiratory Rate Respiratory Effort Short of Breath Labored Accessory Muscle Use Respiratory Pattern Blood Pressure Blood Pressure Mean Pulse Ox 87 93 Oxygen Delivery Method Room Air Room Air Nasal Cannula Oxygen Flow Rate (L/min) 0.5 12/09/22 13:03 12/09/22 13:07 12/09/22 13:18 Temperature 98.3 F Temperature Source Oral Pulse Rate 90 85 81 Respiratory Rate 24 H 18 22 H Respiratory Effort Respiratory Pattern Normal Blood Pressure 143/97 H 143/97 H Blood Pressure Mean 112 112 Pulse Ox 91 93 Oxygen Delivery Method Nasal Cannula Nasal Cannula Oxygen Flow Rate (L/min) 0.5 1 12/09/22 13:18 12/09/22 14:13 12/09/22 14:13 Temperature 98.4 F 98.4 F Temperature Source Oral Oral Pulse Rate 87 87 Respiratory Rate 22 H 22 H Respiratory Effort Respiratory Pattern Tachypnea Blood Pressure 142/70 H 142/70 H Blood Pressure Mean 94 94 Pulse Ox 93 94 94 Oxygen Delivery Method Nasal Cannula Room Air Room Air Oxygen Flow Rate (L/min) 1 12/09/22 14:57 Temperature Temperature Source Pulse Rate 97 Respiratory Rate 18 Respiratory Effort Respiratory Pattern Blood Pressure 121/65 H Blood Pressure Mean Pulse Ox 90 Oxygen Delivery Method Oxygen Flow Rate (L/min) MDM <MAYRA Macias - Last Filed: 12/09/22 14:48> MDM Lab Data Labs: Laboratory Results - last 24 hr 12/09/22 12/09/22 12/09/22 13:19 13:19 13:19 WBC 6.9 RBC 4.26 Hgb 12.8 Hct 40.9 MCV 96.0 MCH 30.0 MCHC 31.3 L RDW Std Deviation 50.8 H RDW Coeff of Ashley 14.4 Plt Count 217 MPV 10.9 Immature Gran % (Auto) 0.300 Neut % (Auto) 51.7 Lymph % (Auto) 28.4 [place] % (Auto) 16.6 H Eos % (Auto) 2.4 Baso % (Auto) 0.6 Absolute Neuts (auto) 3.6 Absolute Lymphs (auto) 1.97 Nucleated RBC % 0 PT INR Sodium 139 Potassium 4.4 Chloride 106 Carbon Dioxide 26.0 Anion Gap 7 BUN 41 H Creatinine 1.93 H Estim Creat Clear Calc 17.47 Est GFR (MDRD) Af Amer 32 L Est GFR (MDRD) Non-Af 26 L BUN/Creatinine Ratio 21.2 H Glucose 115 H Calcium 8.9 Troponin I High Sens 24 B-Natriuretic Peptide 847.5 H 12/09/22 13:19 WBC RBC Hgb Hct MCV MCH MCHC RDW Std Deviation RDW Coeff of Ashley Plt Count MPV Immature Gran % (Auto) Neut % (Auto) Lymph % (Auto) [place] % (Auto) Eos % (Auto) Baso % (Auto) Absolute Neuts (auto) Absolute Lymphs (auto) Nucleated RBC % PT 30.8 H INR 3.0 Sodium Potassium Chloride Carbon Dioxide Anion Gap BUN Creatinine Estim Creat Clear Calc Est GFR (MDRD) Af Amer Est GFR (MDRD) Non-Af BUN/Creatinine Ratio Glucose Calcium Troponin I High Sens B-Natriuretic Peptide Radiography Diagnostic Testing: Clinical Impression(s) from Imaging Studies Chest X-Ray 12/09/22 13:05 IMPRESSION: Cardiomegaly and possible mild pulmonary venous congestion. Electronically Signed: Pasquale Loco MD at 13:59 EST , EKG Sinus rhythm with pacemaker spikes: Attestation: I personally reviewed and interpreted this EKG as follows: Comments: ER attending verbally reviewed the EKG. This shows 98 heart rate. QRS duration 140 ms, there is no acute ST elevation comes no acute infarct noted. Patient does have a pacemaker. Differential Diagnosis Chest pain/SOB: ACS, pneumonia, CHF and COPD Differential Diagnosis: Pneumonia Why less likely: ExcessiveNegative for any, fever or chills. Differential Diagnosis: ACS, [place] Why less likely: Negative troponin. EKG unremarkable. Treatment and Re-Evaluation :: All radiologic examinations were read, reviewed by the emergency department attending. From these reads, a plan of care will be put in place. Patient appears well, patient appears nontoxic, patient did appear to be in slightly hypoxic state at 89% on room air. Patient had some rhonchorous breath sounds with some wheezing. Patient did receive a full respiratory work-up.Patient's COVID-19, influenza test were negative. EKG was unremarkable, patient's laboratory values showed a normal CBC, patient's PT/INR showed an INR of 3.0, this is therapeutic for someone that is on Coumadin. Patient's chemistries showed increase in her creatinine of 1.93 however looking over her laboratory values from November 2021 to November 2022, this is baseline and slightly improved. Patient's proBNP was 847, this is greatly elevated from June of last year at 227. Patient's troponin was negative. Patient's chest x-ray shows cardiomegaly and mild pulmonary venous congestion. Differential diagnosis include pneumonia versus COPD exacerbation versus CHF. At this time, the physical examination as well as laboratory values is concerning for CHF exacerbation. The patient is on Lasix 40 mg twice a day however she does admit that she does not take this as prescribed. Patient be given IV 40 mg Lasix here. Patient after receiving IV steroids, breathing treatments, patient is around 93 to 94% on room air. She was ambulated on room air, she dropped to 89% however when she sitting down she immediately aniyah to 94%. I did speak with the patient regarding admission, we shared decision making, she believes that she would like to be discharged home, she will take her Lasix as prescribed as well as her compression stockings. Patient was given 40 mg IV Lasix here. At this time, I believe the patient is stable for discharging home as long she takes her Lasix as prescribed. She will follow-up closely with her PCP. Both her and her son are agreeable, they were both given strict return precaution. Patient is happy with the plan of care and stay for discharge. <Dr. Faustino Luo, DO - Last Filed: 12/09/22 20:46> MDM MDM Narrative Medical decision making narrative: Interventions / MDM: Differential diagnosis: CHF exacerbation, pneumonia Diagnosis considered but do not suspect: Pulmonary embolism, however therapeutic INR. ACS, however no ischemic EKG changes and negative troponin My EKG interpretation: Sinus rate of 98, no ST changes Imaging independently reviewed and interpreted by myself: Chest x-ray with vascular congestion External documents reviewed: N/A Test considered but not ordered:N/A ED course: Attending note: Patient seen and evaluated with retail business development manager. I perform my own [id number] evaluation. I agree with the plan of work-up. 4-day worsening dyspnea mild cough history of CHF. Patient on warfarin for history of paroxysmal A-fib. She has a pacemaker. She has been noncompliant with her Lasix. Takes intermittent not daily. Denies orthopnea. Minimal leg swelling. Exam 1+ lower extremity edema no respiratory distress. Work-up vascular congestion with elevated BNP. No pneumonia. INR therapeutic 3.0. Presented pulse ox 89%, patient ambulated 88 sent over immediately improved. She was given Lasix. Discussed and considered hospitalization with her symptoms however patient states she would like to go home. Therefore she given IV Lasix, discussed continue her Lasix with return precautions. Patient understands agrees with plan. Her sons are also present who understands. All questions were answered. Re-evaluation: stable Disposition discussed with patient/family/significant other: Patient and family Case discussed with consulting clinician: N/A Lab Data Attestation: I reviewed the patient's lab results. Labs: Laboratory Results - last 24 hr 12/09/22 12/09/22 12/09/22 13:19 13:19 13:19 WBC 6.9 RBC 4.26 Hgb 12.8 Hct 40.9 MCV 96.0 MCH 30.0 MCHC 31.3 L RDW Std Deviation 50.8 H RDW Coeff of Ashley 14.4 Plt Count 217 MPV 10.9 Immature Gran % (Auto) 0.300 Neut % (Auto) 51.7 Lymph % (Auto) 28.4 [place] % (Auto) 16.6 H Eos % (Auto) 2.4 Baso % (Auto) 0.6 Absolute Neuts (auto) 3.6 Absolute Lymphs (auto) 1.97 Nucleated RBC % 0 PT INR Sodium 139 Potassium 4.4 Chloride 106 Carbon Dioxide 26.0 Anion Gap 7 BUN 41 H Creatinine 1.93 H Estim Creat Clear Calc 17.47 Est GFR (MDRD) Af Amer 32 L Est GFR (MDRD) Non-Af 26 L BUN/Creatinine Ratio 21.2 H Glucose 115 H Calcium 8.9 Troponin I High Sens 24 B-Natriuretic Peptide 847.5 H 12/09/22 13:19 WBC RBC Hgb Hct MCV MCH MCHC RDW Std Deviation RDW Coeff of Ashley Plt Count MPV Immature Gran % (Auto) Neut % (Auto) Lymph % (Auto) [place] % (Auto) Eos % (Auto) Baso % (Auto) Absolute Neuts (auto) Absolute Lymphs (auto) Nucleated RBC % PT 30.8 H INR 3.0 Sodium Potassium Chloride Carbon Dioxide Anion Gap BUN Creatinine Estim Creat Clear Calc Est GFR (MDRD) Af Amer Est GFR (MDRD) Non-Af BUN/Creatinine Ratio Glucose Calcium Troponin I High Sens B-Natriuretic Peptide Radiography Diagnostic Testing: Clinical Impression(s) from Imaging Studies Chest X-Ray 12/09/22 13:05 IMPRESSION: Cardiomegaly and possible mild pulmonary venous congestion. Electronically Signed: Pasquale Loco MD at 13:59 EST , Discharge Plan Triage Chief Complaint: Shortness of Breath ED Midlevel Provider: Adelfo Best ED Provider: Faustino Luo Dx/Rx/DC Orders Clinical Impression: Cough, SOB (shortness of breath) on exertion, CHF exacerbation Instructions: ED Heart Failure, Congestive (CHF), ED Dyspnea Prescriptions: No Action folic acid 1 mg tablet 1 mg PO DAILY Invokana 100 mg tablet 100 mg PO DAILY Hold Instructions: Hold for 1 week. Follow-up with the appeals rn. insulin lispro 100 unit/mL solution 10 unit subcut TIDCM insulin glargine 100 unit/mL solution 20 unit subcut QHS levothyroxine 175 mcg tablet 175 mcg PO DAILY triamcinolone acetonide 0.5 % cream 1 applic topical BID allopurinol 300 MG tablet 300 mg PO DAILY albuterol sulfate 1 INHALER inhaler 2 puff inhalation Q4H PRN PRN (Reason: Wheezing) cholecalciferol (vitamin D3) 25 mcg (1,000 unit) tablet 1,000 unit PO DAILY aspirin 81 mg Tablet,Delayed Release (Dr/Ec) 81 mg PO DAILY warfarin 4 mg tablet 6 mg PO SUTU Protocol: Dose Management Condition: Sunday Dose/Route: 6 mg Instruction: 1.5 x 4 mg tablets Condition: Sunday Dose/Route: 4 mg Instruction: 1 x 4 mg tablet Condition: Sunday Dose/Route: 4 mg Instruction: 1 x 4 mg tablet Condition: Sunday Dose/Route: 4 mg Instruction: 1 x 4 mg tablet Condition: Dose/Route: 4 mg Instruction: 1 x 4 mg tablet Condition: Sunday Dose/Route: 6 mg Instruction: 1.5 x 4 mg tablets Condition: Sunday Dose/Route: 6 mg Instruction: 1.5 x 4 mg tablets Protocol Text: Adjustment Start Date: Sunday11/14/22 INR Value: 2.6 INR Date: 11/14/22 Recheck Date: 12/12/22 Rx Instructions: TAKE 1 1/2 TABLETS (TOTAL OF 6MG) ON SUNDAYS AND TUESDAYS AND 1 TABLET ALL OTHER DAYS (4MG) Centrum Chewables 8 mg-400 mcg- 10 mcg Tablet,Chewable 1 tab PO DAILY pravastatin 40 mg tablet 40 mg PO DAILY warfarin 4 mg tablet 4 mg PO Protocol: Dose Management Condition: Sunday Dose/Route: 6 mg Instruction: 1.5 x 4 mg tablets Condition: Sunday Dose/Route: 4 mg Instruction: 1 x 4 mg tablet Condition: Sunday Dose/Route: 4 mg Instruction: 1 x 4 mg tablet Condition: Sunday Dose/Route: 4 mg Instruction: 1 x 4 mg tablet Condition: Dose/Route: 4 mg Instruction: 1 x 4 mg tablet Condition: Sunday Dose/Route: 6 mg Instruction: 1.5 x 4 mg tablets Condition: Sunday Dose/Route: 6 mg Instruction: 1.5 x 4 mg tablets Protocol Text: Adjustment Start Date: Sunday11/14/22 INR Value: 2.6 INR Date: 11/14/22 Recheck Date: 12/12/22 Rx Instructions: TAKE 1 AND 1/2 TABLET BY MOUTH SUNDAY AND SUNDAY AND TAKE 1 TABLET BY ALL OTHER DAYS metoprolol succinate 50 mg Tablet Extended Release 24 Hr 50 mg PO DAILY Qty: 30 0RF amlodipine 10 mg tablet 10 mg PO DAILY Qty: 90 3RF losartan 50 mg tablet 50 mg PO BID Qty: 180 3RF Rx Instructions: furosemide 40 mg tablet 40 mg PO BID Qty: 180 3RF Hold Instructions: Hold furosemide now. Start furosemide 40 mg daily on 06/24, Sunday or Sunday depending on leg swelling. Take an additional 40 mg dose at 5 PM for increased leg swelling or weight gain 5 pounds in 1 week. flecainide 100 mg tablet 100 mg PO BID Qty: 180 3RF Primary Care Provider: Marcelino Moon Referrals: Marcelino Moon DO [Primary Care Provider] - Activity Restrictions/Additional Instructions: Take your Lasix 40 mg twice a day as prescribed. Use your compression stockings. Follow-up with your PCP. Disposition Disposition: Home, Self Care Discharge Date/Time: 12/09/22 15:04
[2022-12-09] MEDS: Albuterol 2.5 MG/3 ML VIAL.NEB. INHALATION (13:11)
[2022-12-09] MEDS: Ipratropium/Albuterol Sulfate 3 ML AMPUL.NEB INHALATION (13:11)
[2022-12-09 13:26] LABS: Absolute Lymphocyte Count 1.97 X10^3/uL (0.83-4.51); Absolute Neutrophil Count 3.6 X10^3/uL (2.0-7.7); Basophil# 0.04 X10^3/uL; Basophil% 0.6 % (0-1); Eosinophil# 0.17 X10^3/uL; Eosinophils% 2.4 % (0-5); Hematocrit 40.9 % (37-47); Hemoglobin 12.8 g/dL (12.0-15.0); Lymphocyte # 1.97 X10^3/ul (0.83-4.51); Lymphocyte % 28.4 % (19-41); Mean Corp Hgb Conc 31.3 g/dL (32-36); Mean Platelet Vol. 10.9 fl (6.2-12.0); Monocyte# 1.15 X10^3/uL; Monocyte% 16.6 % (0-10); NRBC Flagged by Analyzer 0 % (0-5); Neutrophil # 3.59 X10^3/uL (2.7-7.7); Neutrophil % 51.7 % (47-70); Platelet Count 217 K/mm3 (150-450); RBC Distribution Width CV 14.4 % (11.6-14.6); RBC Distribution Width SD 50.8 fl (35.1-43.9); Red Blood Count 4.26 M/mm3 (4.2-5.4); White Blood Count 6.9 K/mm3 (4.4-11.0)
[2022-12-09] MEDS: MethylPREDNISolone 125 MG/2 ML Vial IV (13:31)
[2022-12-09 13:43] LABS: Anion Gap 7 (5-15); BUN 41 mg/dL (7-18); BUN/Creat Ratio 21.2 RATIO (10-20); Calcium,Total 8.9 mg/dL (8.5-10.1); Chloride 106 mmol/L (98-107); Creatinine, Serum 1.93 mg/dL (0.55-1.02); EST Glomerular Filtration Rate 26 mL/min (>60); Est Glom Filt Rate - Afr Amer 32 mL/min (>60); Estimated Creatinine Clearance 17.47 ml/min; Glucose 115 mg/dL (74-106); Potassium 4.4 mmol/L (3.5-5.1); Sodium Level 139 mmol/L (136-145); Troponin-I HS 24 pg/mL (3.0-54.0)
[2022-12-09 13:53] LABS: BNP,B-Type NATRIURETIC PEPTIDE 847.5 pg/mL (0-100)
[2022-12-09 14:04] LABS: Prothrombin Time (Protime)PT. 30.8 SECONDS (11.7-14.9)
[2022-12-09] MEDS: Furosemide 40 MG/4 ML Vial IV (14:47)
== END 2022-12-09 15:04 | disposition home or self-care (01) ==
PROVIDERS: Nurse Practitioner; Emergency Provider Emergency Medicine; PCP Student in an Organized Health Care Education/Training Program; Visit Provider Emergency Medicine
DX: R05.9 Cough, unspecified (principal); I13.0 Hypertensive heart and chronic kidney disease with heart failure and stage 1 through stage 4 chronic kidney disease, or unspecified chronic kidney disease; I50.9 Heart failure, unspecified; E11.22 Type 2 diabetes mellitus with diabetic chronic kidney disease; I48.0 Paroxysmal atrial fibrillation; N18.2 Chronic kidney disease, stage 2 (mild); Z95.0 Presence of cardiac pacemaker; E78.5 Hyperlipidemia, unspecified; I25.10 Atherosclerotic heart disease of native coronary artery without angina pectoris; R06.02 Shortness of breath; Z79.01 Long term (current) use of anticoagulants; E03.9 Hypothyroidism, unspecified
CPT/HCPCS: 71046; 80048; 83880; 84484; 85025; 85610; 87428; 93005; 94640; 99283; A4216; J1940

== ENCOUNTER 2022-12-12 12:00 | Outpatient (RCR) | payer MEDICARE, OTHER, SELFPAY ==
[2022-11-28 19:50] VITALS: BMI 36.5
[2022-12-12 12:35] LABS: International Normalized Ratio 2.8; Prothrombin Time (Protime)PT. 29.1 SECONDS (11.7-14.9)
== END 2022-12-29 21:28 | disposition home or self-care (01) ==
LOC: LAB 12:00
PROVIDERS: PCP Student in an Organized Health Care Education/Training Program; Referring Provider Internal Medicine Cardiovascular Disease; Visit Provider Internal Medicine Cardiovascular Disease
DX: I48.0 Paroxysmal atrial fibrillation (principal); Z79.01 Long term (current) use of anticoagulants
CPT/HCPCS: 36415; 85610

== ENCOUNTER 2022-12-13 11:48 | Inpatient (IN) | payer MEDICARE, OTHER, SELFPAY ==
[2022-12-13] VITALS (38 sets, daily range): BP systolic 111–143; BP diastolic 64–85; PULSE 80–113; RESP 13–25; TEMP 36.3–37.2; O2SAT 85–988; BMI 34.4
--- NOTE | 2022-12-13 12:25 | EKG12_ITS ---
Test Reason : SOB Blood Pressure : / mmHG Vent. Rate : 084 BPM Atrial Rate : 000 BPM P-R Int : 000 ms QRS Dur : 158 ms QT Int : 438 ms P-R-T Axes : 000 265 -03 degrees QTc Int : 517 ms Atrial fibrillation with frequent ventricular-paced complexes Right superior axis deviation Non-specific intra-ventricular conduction block Minimal voltage criteria for LVH, may be normal variant ( Pollock product ) Abnormal ECG Confirmed by KADIE DUTTA, ELVI ([id number]), associate editor PRISCILLA SIMMONS ([id number]) on 12/15/2022 6:56:58 AM Referred By: ROSALIA Confirmed By:ASUNCION ENGLE MD
--- NOTE | 2022-12-13 12:26 | EDS_ITS ---
HPI History of Present Illness Chief Complaint: Shortness of Breath Informant: patient Onset/Context/Timing Onset: Days Context: Gradual Onset Narrative Narrative: Patient present secondary to feeling short of breath and weak with a cough. She states she was sick about a month ago and thought she was better. Over the past week she had increasing symptoms again. She was seen in the ER on Sunday. She states they discussed possible admission for congestive heart failure but patient wanted to go home. She states that she has not gotten any better and feels generally weak so she presents back to the ER today. She has not had fever. She does report some chest heaviness. [facility] Medical History Garcia's palsy Bradycardia Cerebrovascular disease Diabetes mellitus Dyslipidemia Essential hypertension Fatty liver Gout HLD (hyperlipidemia) HTN (hypertension) Hyponatremia Hypothyroid Osteoporosis Ovarian cyst, left Paroxysmal atrial fibrillation Pre-syncope Sick sinus syndrome Sinus pause Home Medications albuterol sulfate 90 mcg/actuation aerosol inhaler 2 puff inhalation Q4H PRN PRN Wheezing 08/10/15 [History Last Taken 10/02/18] allopurinol 300 mg tablet 300 mg PO DAILY gout 08/10/15 [History Last Taken 06/19/22] folic acid 1 mg tablet 1 mg PO DAILY SUPPLEMENT 12/04/19 [History Last Taken 06/19/22] canagliflozin 100 mg tablet (Invokana) 100 mg PO DAILY HEART 04/25/21 [History Last Taken 06/18/22] cholecalciferol (vitamin D3) 25 mcg (1,000 unit) tablet 1,000 unit PO DAILY supplement 04/25/21 [History Last Taken 06/19/22] insulin glargine 100 unit/mL subcutaneous solution 20 unit subcut QHS blood glucose 04/25/21 [History Last Taken 06/18/22] insulin lispro 100 unit/mL subcutaneous solution 10 unit subcut TIDCM blood glucose 04/25/21 [History Last Taken 06/19/22] levothyroxine 175 mcg tablet 175 mcg PO DAILY THYROID 04/25/21 [History Last Taken 06/19/22] triamcinolone acetonide 0.5 % topical cream 1 applic topical BID RASH 04/25/21 [History Last Taken Unknown] amlodipine 10 mg tablet 10 mg PO DAILY blood pressure #90 tabs 06/14/21 [Rx Last Taken 06/19/22] losartan 50 mg tablet 50 mg PO BID HTN #180 tabs 03/06/22 [Rx Last Taken 06/19/22] furosemide 40 mg tablet 40 mg PO BID diuretics #180 tabs 05/09/22 [Rx Last Taken 06/19/22] aspirin 81 mg tablet,delayed release 81 mg PO DAILY BLOOD THINNER 06/19/22 [History Last Taken 06/19/22] [id number] 8 mg-folic ac 400 mcg-vit K 10 mcg chew tablet (Centrum Chewables) 1 tab PO DAILY HEALTH MAINTENANCE 06/19/22 [History Last Taken 06/19/22] pravastatin 40 mg tablet 40 mg PO DAILY CHOLESTEROL 06/19/22 [History Last Taken 06/18/22] warfarin 4 mg tablet 4 mg PO MOWETHFRSA BLOOD THINNER 06/19/22 [History Last Taken 06/17/22] warfarin 4 mg tablet 6 mg PO SUTU BLOOD THINNER 06/19/22 [History Last Taken 06/18/22] metoprolol succinate 50 mg tablet,extended release 24 hr 50 mg PO DAILY #30 tabs 06/21/22 [Rx Last Taken Unknown] flecainide 100 mg tablet 100 mg PO BID HEART #180 tabs 09/05/22 [Rx Last Taken Unknown] Allergy/AdvReac Type Severity Reaction Status Date / Time atorvastatin calcium AdvReac cough Verified 12/09/22 12:28 [From Lipitor] enalapril maleate AdvReac cough Verified 12/09/22 12:28 [From Vasotec] enalaprilat dihydrate AdvReac cough Verified 12/09/22 12:28 [From Vasotec] Family History Mother CVA (cerebral vascular accident) Hypertension Father Heart disease Myocardial infarction Son Overdose Surgical History Cardiac pacemaker in situ (10/28/18) History of appendectomy History of tubal ligation S/P laparoscopic appendectomy Social History Smoking Status: Never smoker alcohol intake: never substance use type: does not use caffeine: Yes Type: coffee Number of servings: 2 ROS ROS ED Constitutional Constitutional ED: Denies chills or fever(s) Eyes Eyes: Denies change in vision or discharge from eye(s) ENT ENT ED: Denies discharge from eye(s), rhinorrhea or sore throat Cardiovascular Cardiovascular: Reports chest pain; Denies palpitations Respiratory/Chest Respiratory/Chest: Reports cough and dyspnea Gastrointestinal Gastrointestinal: Denies abdominal pain, diarrhea, nausea or vomiting Genitourinary Genitourinary ED: Denies difficulty urinating or dysuria Musculoskeletal Musculoskeletal: Denies back pain or extremity pain Integumentary Denies Abrasions or rash Neurologic Neurologic: Reports weakness; Denies headache(s) Allergic/Immunologic Allergic/Immunologic ED: Denies lip swelling or urticaria EXAM Physical Exam Const Vital Signs: 12/13/22 11:50 12/13/22 12:07 12/13/22 11:51 Temperature 99 F 99 F Temperature Source Temporal Temporal Pulse Rate 88 88 Respiratory Rate 22 H 24 H Respiratory Effort Short of Breath Respiratory Depth Normal Respiratory Pattern Normal Blood Pressure 128/75 H 128/75 H Blood Pressure Mean 92 92 Pulse Ox 93 92 Oxygen Delivery Method Room Air Room Air Room Air 12/13/22 12:45 12/13/22 12:45 12/13/22 12:47 Temperature Temperature Source Pulse Rate 100 Respiratory Rate 22 H Respiratory Effort Respiratory Depth Respiratory Pattern Tachypnea Blood Pressure Blood Pressure Mean Pulse Ox 85 98 Oxygen Delivery Method Room Air Room Air 12/13/22 13:33 Temperature 98.9 F Temperature Source Temporal Pulse Rate 82 Respiratory Rate 17 Respiratory Effort Respiratory Depth Respiratory Pattern Blood Pressure 129/74 H Blood Pressure Mean 92 Pulse Ox 94 Oxygen Delivery Method Positive well nourished and well developed General Appearance ED: well developed HEENT Reports normocephalic and head/scalp atraumatic Eyes PERRL and EOMs intact bilaterally Neck supple Chest Wall inspection of chest normal and palpation of chest normal Resp Resp Narrative: Mild tachypnea with bilateral expiratory wheezes and rhonchi. Cardio regular rate and regular rhythm GI non-tender Palpation: soft Extremity Extremity Narrative: 2+ bilateral lower extremity edema. Neuro oriented x3 and no sensory deficits noted Sensorium / Orientation: alert Motor Exam: strength 5/5 throughout Psych mental status grossly normal Skin no rashes or lesions noted MDM MDM MDM Narrative Medical decision making narrative: Patient is given Solu-Medrol along with aerosols. She is placed on shellfish sorter. Labwork obtained to evaluate for leukocytosis, anemia, and electrolyte derangement. EKG obtained to evaluate for cardiac arrhythmia/ischemia. Chest x-ray obtained to evaluate for acute lung pathology, cardiac size, or mediastinal abnormality. COVID swab obtained 4 days ago was reviewed and was negative. History & Record Review Discussion w/independent historian: Patient and Family Additional record(s) reviewed:: Prior ED visit Lab Data Attestation: I reviewed the patient's lab results. Labs: Laboratory Results - last 24 hr 12/13/22 12/13/22 12/13/22 12:33 12:33 12:33 WBC 7.9 RBC 4.48 Hgb 13.7 Hct 42.2 MCV 94.2 MCH 30.6 MCHC 32.5 RDW Std Deviation 50.0 H RDW Coeff of Ashley 14.4 Plt Count 238 MPV 10.6 Immature Gran % (Auto) 0.300 Neut % (Auto) 50.9 Lymph % (Auto) 37.6 [place] % (Auto) 7.9 Eos % (Auto) 3.0 Baso % (Auto) 0.3 Absolute Neuts (auto) 4.0 Absolute Lymphs (auto) 2.97 Nucleated RBC % 0 PT 25.9 H INR 2.4 Sodium 135 L Potassium 4.1 Chloride 103 Carbon Dioxide 25.0 Anion Gap 7 BUN 59 H Creatinine 2.15 H Estim Creat Clear Calc 15.68 Est GFR (MDRD) Af Amer 28 L Est GFR (MDRD) Non-Af 23 L BUN/Creatinine Ratio 27.4 H Glucose 122 H Calcium 8.8 Troponin I High Sens 16 B-Natriuretic Peptide 12/13/22 12:33 WBC RBC Hgb Hct MCV MCH MCHC RDW Std Deviation RDW Coeff of Ashley Plt Count MPV Immature Gran % (Auto) Neut % (Auto) Lymph % (Auto) [place] % (Auto) Eos % (Auto) Baso % (Auto) Absolute Neuts (auto) Absolute Lymphs (auto) Nucleated RBC % PT INR Sodium Potassium Chloride Carbon Dioxide Anion Gap BUN Creatinine Estim Creat Clear Calc Est GFR (MDRD) Af Amer Est GFR (MDRD) Non-Af BUN/Creatinine Ratio Glucose Calcium Troponin I High Sens B-Natriuretic Peptide 441.9 H Radiography Chest X-Ray - ED: 1 View, Read by ED Physician, Chronic Changes and No Infiltrates Diagnostic Testing: Clinical Impression(s) from Imaging Studies Chest X-Ray 12/13/22 13:06 IMPRESSION: No acute pulmonary process Electronically Signed: Anthony Rey MD at 13:19 EDT , EKG Initial EKG: Attestation: I personally reviewed and interpreted this EKG as follows: Interpretation: Atrial Fibrillation (A-fib with ventricular rate of 84 bpm. Frequent ventricular paced beats are noted. EKG is not significantly changed when compared to prior study from December 09.) Differential Diagnosis Chest pain/SOB: pulmonary embolism Reason(s) PE less likely: Positive for patient taking oral anticoagulants, ACS ACS: Positive for no evidence of ACS ba sed on cardiac biomarkers and EKG without ischemia, pneumonia Reason(s) pneumonia less likely: Positive for no infiltrate on CXR and no elevation in WBC count and CHF Treatment and Re-Evaluation :: CBC reveals normal white count and differential. INR is therapeutic at 2.4. Chemistry studies reveal a BUN of 59 and a creatinine of 2.15. This is near the patient's baseline. Troponin is normal at 16. BNP is 441. This is improved when compared to a BNP in the 800 range for 5 days ago. I was notified by nursing staff that the patient's O2 sat did drop to 87% on room air. She is currently on 2 L nasal cannula. Patient does not have a known diagnosis of COPD. I will treat her as a bronchitis with bronchospasm and hypoxia. She has very mild CHF. She will require hospitalization given her hypoxia. I will speak with hospitalist. Discharge Plan Triage Chief Complaint: Shortness of Breath ED Provider: Tisha Leung Dx/Rx/DC Orders Clinical Impression: Acute bronchitis with bronchospasm, Hypoxia, CHF (congestive heart failure) Prescriptions: No Action folic acid 1 mg tablet 1 mg PO DAILY Invokana 100 mg tablet 100 mg PO DAILY Hold Instructions: Hold for 1 week. Follow-up with the administrative assistant. insulin lispro 100 unit/mL solution 10 unit subcut TIDCM insulin glargine 100 unit/mL solution 20 unit subcut QHS levothyroxine 175 mcg tablet 175 mcg PO DAILY triamcinolone acetonide 0.5 % cream 1 applic topical BID allopurinol 300 MG tablet 300 mg PO DAILY albuterol sulfate 1 INHALER inhaler 2 puff inhalation Q4H PRN PRN (Reason: Wheezing) cholecalciferol (vitamin D3) 25 mcg (1,000 unit) tablet 1,000 unit PO DAILY aspirin 81 mg Tablet,Delayed Release (Dr/Ec) 81 mg PO DAILY warfarin 4 mg tablet 6 mg PO SUTU Protocol: Dose Management Condition: Sunday Dose/Route: 6 mg Instruction: 1.5 x 4 mg tablets Condition: Sunday Dose/Route: 4 mg Instruction: 1 x 4 mg tablet Condition: Sunday Dose/Route: 4 mg Instruction: 1 x 4 mg tablet Condition: Sunday Dose/Route: 4 mg Instruction: 1 x 4 mg tablet Condition: Dose/Route: 4 mg Instruction: 1 x 4 mg tablet Condition: Sunday Dose/Route: 6 mg Instruction: 1.5 x 4 mg tablets Condition: Sunday Dose/Route: 6 mg Instruction: 1.5 x 4 mg tablets Protocol Text: Adjustment Start Date: Sunday12/12/22 INR Value: 2.8 INR Date: 12/12/22 Recheck Date: 01/09/23 Rx Instructions: TAKE 1 1/2 TABLETS (TOTAL OF 6MG) ON SUNDAYS AND TUESDAYS AND 1 TABLET ALL OTHER DAYS (4MG) Centrum Chewables 8 mg-400 mcg- 10 mcg Tablet,Chewable 1 tab PO DAILY pravastatin 40 mg tablet 40 mg PO DAILY warfarin 4 mg tablet 4 mg PO Protocol: Dose Management Condition: Sunday Dose/Route: 6 mg Instruction: 1.5 x 4 mg tablets Condition: Sunday Dose/Route: 4 mg Instruction: 1 x 4 mg tablet Condition: Sunday Dose/Route: 4 mg Instruction: 1 x 4 mg tablet Condition: Sunday Dose/Route: 4 mg Instruction: 1 x 4 mg tablet Condition: Dose/Route: 4 mg Instruction: 1 x 4 mg tablet Condition: Sunday Dose/Route: 6 mg Instruction: 1.5 x 4 mg tablets Condition: Sunday Dose/Route: 6 mg Instruction: 1.5 x 4 mg tablets Protocol Text: Adjustment Start Date: Sunday12/12/22 INR Value: 2.8 INR Date: 12/12/22 Recheck Date: 01/09/23 Rx Instructions: TAKE 1 AND 1/2 TABLET BY MOUTH SUNDAY AND SUNDAY AND TAKE 1 TABLET BY ALL OTHER DAYS metoprolol succinate 50 mg Tablet Extended Release 24 Hr 50 mg PO DAILY Qty: 30 0RF amlodipine 10 mg tablet 10 mg PO DAILY Qty: 90 3RF losartan 50 mg tablet 50 mg PO BID Qty: 180 3RF Rx Instructions: furosemide 40 mg tablet 40 mg PO BID Qty: 180 3RF Hold Instructions: Hold furosemide now. Start furosemide 40 mg daily on 06/24, Sunday or Sunday depending on leg swelling. Take an additional 40 mg dose at 5 PM for increased leg swelling or weight gain 5 pounds in 1 week. flecainide 100 mg tablet 100 mg PO BID Qty: 180 3RF Primary Care Provider: Marcelino Moon Referrals: Marcelino Moon DO [Primary Care Provider] -
[2022-12-13] MEDS: Ipratropium/Albuterol Sulfate 3 ML AMPUL.NEB INHALATION ×3 (12:37→22:38)
[2022-12-13] MEDS: Albuterol 2.5 MG/3 ML VIAL.NEB. INHALATION ×2 (12:37)
[2022-12-13] MEDS: MethylPREDNISolone 125 MG/2 ML Vial IV (12:56)
[2022-12-13 13:06] LABS: Absolute Lymphocyte Count 2.97 X10^3/uL (0.83-4.51); Basophil# 0.02 X10^3/uL; Basophil% 0.3 % (0-1); Eosinophil# 0.24 X10^3/uL; Hematocrit 42.2 % (37-47); Hemoglobin 13.7 g/dL (12.0-15.0); Lymphocyte # 2.97 X10^3/ul (0.83-4.51); Lymphocyte % 37.6 % (19-41); Mean Corp Hgb Conc 32.5 g/dL (32-36); Mean Corpuscular Hgb 30.6 pg (27.0-32.0); Mean Corpuscular Volume 94.2 fL (81-99); Mean Platelet Vol. 10.6 fl (6.2-12.0); Monocyte# 0.62 X10^3/uL; Monocyte% 7.9 % (0-10); NRBC Flagged by Analyzer 0 % (0-5); Neutrophil # 4.02 X10^3/uL (2.7-7.7); Neutrophil % 50.9 % (47-70); Platelet Count 238 K/mm3 (150-450); RBC Distribution Width CV 14.4 % (11.6-14.6); Red Blood Count 4.48 M/mm3 (4.2-5.4); White Blood Count 7.9 K/mm3 (4.4-11.0)
--- NOTE | 2022-12-13 13:06 | RAD_ITS ---
STUDY: X-RAY CHEST REASON FOR EXAM: Female, 82 years old. Worsening shortness of breath TECHNIQUE: Single AP portable view of the chest. COMPARISON: 12/09/2022 FINDINGS: EKG leads overlie the chest. Stable appearance of a left subclavian pacemaker The lungs are clear and expanded. There is no demonstrated pleural abnormality. Normal size heart. Normal mediastinum and jamila. Normal visualized pulmonary arteries. There is atherosclerotic calcification of the aortic arch with tortuosity. There are diffuse degenerative changes of the visualized thoracic spine. There is degenerative osteoarthritis of the bilateral shoulders. There is no demonstrated abnormality of the visualized soft tissue structures of the upper abdomen. RAD/Chest 1 View (Portable) IMPRESSION: No acute pulmonary process Electronically Signed: Anthony Rey MD at 13:19 EDT ,
[2022-12-13 13:20] LABS: International Normalized Ratio 2.4; Prothrombin Time (Protime)PT. 25.9 SECONDS (11.7-14.9)
[2022-12-13 13:23] LABS: Anion Gap 7 (5-15); BUN 59 mg/dL (7-18); BUN/Creat Ratio 27.4 RATIO (10-20); Calcium,Total 8.8 mg/dL (8.5-10.1); Chloride 103 mmol/L (98-107); Creatinine, Serum 2.15 mg/dL (0.55-1.02); EST Glomerular Filtration Rate 23 mL/min (>60); Est Glom Filt Rate - Afr Amer 28 mL/min (>60); Estimated Creatinine Clearance 15.68 ml/min; Glucose 122 mg/dL (74-106); Potassium 4.1 mmol/L (3.5-5.1); Sodium Level 135 mmol/L (136-145); Troponin-I HS 16 pg/mL (3.0-54.0)
[2022-12-13 13:24] LABS: BNP,B-Type NATRIURETIC PEPTIDE 441.9 pg/mL (0-100)
--- NOTE | 2022-12-13 13:33 | ED.RN ---
PT O2 SATS DROP TO 87% ON ROOM AIR WHILE RESTING. THIS RN PLACES 2L O2 VIA NC ON PT. PT O2 SATS INCREASE TO 96%
--- NOTE | 2022-12-13 14:16 | NURSING ---
DR YOON FOR DR MATHEWS
[2022-12-13] MEDS: Doxycycline 100 MG CAPSULE PO (14:19)
--- NOTE | 2022-12-13 14:31 | NURSING ---
MED SURG YOON BRONCHITIS, BRONCHOSPASM, HYPOXIA
--- NOTE | 2022-12-13 15:22 | PCM.HP.STD ---
HPI - General General Date of Admission: 12/13/22 Date of Service: 12/13/22 Chief Complaint: SOB HPI Narrative REY GUY, is a 82 F with a history of atrial fibrillation on Coumadin, type 2 diabetes mellitus, congestive heart failure, sick sinus syndrome status post pacemaker in 2019, hypothyroidism who presented to [facility] 12/13/2022 with increasing shortness of breath. She reports being sick about a month ago and then was treated for bronchitis but then became sick again a week ago and has had some cough, congestion, wheezing. She was seen in the ED on Sunday and was noted to have an increased BNP and had not been on her Lasix, she was resumed on Lasix and hospital admission offered but she declined. She returns again today because she is feeling worse. In the ED INR was 2.4, sodium is 135, creatinine 2.15 with a baseline around 1.9-2.2, BUN 59 and her BNP decreased from 847 down to 441. She is noted to have diffuse wheezes and chest x-ray without acute pulmonary process but she was 87% on room air and was required O2. Hospitalist consulted for admission. Patient reports history as above, and said that she is feeling mildly better now that she is in the emergency department and received treatment but still has shortness of breath as well as productive cough and wheezing. Reports that this morning she was feeling somewhat goofy and that her vision seemed a little on her head was achy but that is resolved. Does not note fever. Does have sick contact, her , who is currently hospitalized for respiratory distress as well. [facility] Medical History Garcia's palsy Bradycardia Cerebrovascular disease Diabetes mellitus Dyslipidemia Essential hypertension Fatty liver Gout HLD (hyperlipidemia) HTN (hypertension) Hyponatremia Hypothyroid Osteoporosis Ovarian cyst, left Paroxysmal atrial fibrillation Pre-syncope Sick sinus syndrome Sinus pause Home Medications albuterol sulfate 90 mcg/actuation aerosol inhaler 2 puff inhalation Q4H PRN PRN Wheezing 08/10/15 [History Last Taken 12/13/22] allopurinol 300 mg tablet 300 mg PO DAILY gout 08/10/15 [History Last Taken 12/13/22] folic acid 1 mg tablet 1 mg PO DAILY SUPPLEMENT 12/04/19 [History Last Taken 12/13/22] canagliflozin 100 mg tablet (Invokana) 100 mg PO DAILY HEART 04/25/21 [History Last Taken 12/13/22] cholecalciferol (vitamin D3) 25 mcg (1,000 unit) tablet 1,000 unit PO BID supplement 04/25/21 [History Last Taken 12/13/22] insulin glargine 100 unit/mL subcutaneous solution 20 unit subcut QHS blood glucose 04/25/21 [History Last Taken 12/12/22] insulin lispro 100 unit/mL subcutaneous solution 10 unit subcut TIDCM blood glucose 04/25/21 [History Last Taken 12/12/22] levothyroxine 175 mcg tablet 175 mcg PO DAILY THYROID 04/25/21 [History Last Taken 12/13/22] triamcinolone acetonide 0.5 % topical cream 1 applic topical BID RASH 04/25/21 [History Last Taken Unknown] amlodipine 10 mg tablet 10 mg PO DAILY blood pressure #90 tabs 06/14/21 [Rx Last Taken 12/13/22] losartan 50 mg tablet 50 mg PO BID HTN #180 tabs 03/06/22 [Rx Last Taken 12/13/22] furosemide 40 mg tablet 40 mg PO BID diuretics #180 tabs 05/09/22 [Rx Last Taken 12/13/22] aspirin 81 mg tablet,delayed release 81 mg PO DAILY BLOOD THINNER 06/19/22 [History Last Taken 12/13/22] [id number]-[id number] 8 mg-folic ac 400 mcg-vit K 10 mcg chew tablet (Centrum Chewables) 1 tab PO DAILY HEALTH MAINTENANCE 06/19/22 [History Last Taken 12/13/22] pravastatin 40 mg tablet 40 mg PO DAILY CHOLESTEROL 06/19/22 [History Last Taken 12/12/22] warfarin 4 mg tablet 4 mg PO MOTUWETH BLOOD THINNER 06/19/22 [History Last Taken 12/12/22] warfarin 4 mg tablet 6 mg PO SUFRSA BLOOD THINNER 06/19/22 [History Last Taken 12/10/22] metoprolol succinate 50 mg tablet,extended release 24 hr 50 mg PO DAILY #30 tabs 06/21/22 [Rx Last Taken 12/13/22] flecainide 100 mg tablet 100 mg PO BID HEART #180 tabs 09/05/22 [Rx Last Taken 12/13/22] Coricidin D 2 tab PO/SL Q4H PRN Cold Symptoms 12/13/22 [History Last Taken 12/13/22 10:00] Elderberry 1 tab PO/SL DAILY SUPPLEMENT 12/13/22 [History Last Taken 12/12/22] biotin 1 tab PO/SL DAILY HAIR, SKIN, AND NAILS 12/13/22 [History Last Taken 12/12/22] zinc 1 tab PO/SL DAILY SUPPLEMENT 12/13/22 [History Last Taken 12/12/22] Allergy/AdvReac Type Severity Reaction Status Date / Time atorvastatin calcium AdvReac cough Verified 12/09/22 12:28 [From Lipitor] enalapril maleate AdvReac cough Verified 12/09/22 12:28 [From Vasotec] enalaprilat dihydrate AdvReac cough Verified 12/09/22 12:28 [From Vasotec] Family History Mother CVA (cerebral vascular accident) Hypertension Father Heart disease Myocardial infarction Son Overdose Surgical History Cardiac pacemaker in situ (10/28/18) History of appendectomy History of tubal ligation S/P laparoscopic appendectomy Social History Smoking Status: Never smoker alcohol intake: never substance use type: does not use caffeine: Yes Type: coffee Number of servings: 2 ROS ROS Narrative General: Denies fever/chills HENT: Had slight headache earlier, denies stuffy nose, denies sore throat EYES: [place] her vision was little bit dim earlier Resp: Has had shortness of breath and productive cough Cardiac: Denies chest pain GI: Denies abdominal pain, denies changes in bowel, denies nausea/vomiting : Denies changes in urination Extremity: Denies swelling MSK: Generalized weakness Neuro: Denies any numbness/tingling Heme: Bruises easily Skin: Denies rashes Psychiatric: No complaints voiced Vital Signs Vital Signs Vital Signs: 12/13/22 11:50 12/13/22 12:07 12/13/22 11:51 Temperature 99 F 99 F Temperature Source Temporal Temporal Pulse Rate 88 88 Respiratory Rate 22 H 24 H Respiratory Effort Short of Breath Respiratory Depth Normal Respiratory Pattern Normal Blood Pressure 128/75 H 128/75 H Blood Pressure Mean 92 92 Pulse Ox 93 92 Oxygen Delivery Method Room Air Room Air Room Air Oxygen Flow Rate (L/min) 12/13/22 12:45 12/13/22 12:45 12/13/22 12:47 Temperature Temperature Source Pulse Rate 100 Respiratory Rate 22 H Respiratory Effort Respiratory Depth Respiratory Pattern Tachypnea Blood Pressure Blood Pressure Mean Pulse Ox 85 98 Oxygen Delivery Method Room Air Room Air Oxygen Flow Rate (L/min) 12/13/22 13:33 12/13/22 14:54 12/13/22 14:54 Temperature 98.9 F 98.0 F Temperature Source Temporal Temporal Pulse Rate 82 80 80 Respiratory Rate 17 16 16 Respiratory Effort Respiratory Depth Respiratory Pattern Blood Pressure 129/74 H 137/74 H 137/74 H Blood Pressure Mean 92 95 95 Pulse Ox 94 988 98 Oxygen Delivery Method Nasal Cannula Nasal Cannula Oxygen Flow Rate (L/min) 2 2 Weight Weight: 85.5 kg Body Mass Index (BMI) 34.4 Physical Exam Narrative General: Alert, oriented HEENT: Atraumatic, normocephalic Eyes: Anicteric, normal conjunctiva, extraocular movements grossly intact Neck: Supple Respiratory: Diffusely coarse with diffuse wheezes, normal respiratory effort Cardiovascular: Irregularly irregular GI: Soft, nontender, nondistended Extremities: No edema Musculoskeletal: Moving all extremities Neuro: No overt focal neurological deficits Skin: No rashes appreciated Psych: Overall cooperative Results Lab / Micro Data Result Diagrams: 12/13/22 12:33 12/13/22 12:33 Labs: Laboratory Results - last 24 hr 12/13/22 12:33: WBC 7.9, RBC 4.48, Hgb 13.7, Hct 42.2, MCV 94.2, MCH 30.6, MCHC 32.5, RDW Std Deviation 50.0 H, RDW Coeff of Ashley 14.4, Plt Count 238, MPV 10.6, Immature Gran % (Auto) 0.300, Neut % (Auto) 50.9, Lymph % (Auto) 37.6, [place] % (Auto) 7.9, Eos % (Auto) 3.0, Baso % (Auto) 0.3, Absolute Neuts (auto) 4.0, Absolute Lymphs (auto) 2.97, Nucleated RBC % 0 12/13/22 12:33: PT 25.9 H, INR 2.4 12/13/22 12:33: Sodium 135 L, Potassium 4.1, Chloride 103, Carbon Dioxide 25.0, Anion Gap 7, BUN 59 H, Creatinine 2.15 H, Estim Creat Clear Calc 15.68, Est GFR (MDRD) Af Amer 28 L, Est GFR (MDRD) Non-Af 23 L, BUN/Creatinine Ratio 27.4 H, Glucose 122 H, Calcium 8.8, Troponin I High Sens 16 12/13/22 12:33: B-Natriuretic Peptide 441.9 H Radiology Impression Chest X-Ray 12/13/22 13:06 IMPRESSION: No acute pulmonary process Electronically Signed: Anthony Rey MD at 13:19 EDT , Assessment & Plan Assessment/Plan (1) SOB (shortness of breath) on exertion: (2) Hypoxia: PLAN: Plan #SOB w/ Acute hypoxia -Was 87% on room air and required O2. Suspect URI but cannot r/o pneumonia Chest x-ray reviewed and does possibly have some obscuring of heart border on the left side -covid and resp panels, given waxing waning course also obtain sputum culture - with recent metapneumovirus diagnosis -Was recently seen and found to be somewhat fluid overloaded, BNP has improved however with Lasix and suspect that this is more viral but we will start empiric antibiotics given that she had gotten significantly better but symptoms returned with cough with productive sputum so she may have a secondary bacterial infection, will start Rocephin and azithromycin -Patient with significant wheezing and was 87% on room air, will start nebs -We will obtain urine antigens -We will start Mucinex -Incentive spirometry #CKD stage IIIb -Has variable creatinine but is not significantly outside the realm of her baseline #afib -on coum -Trend INR, presently therapeutic -Continue home flecainide and metoprolol #Diabetes mellitus type 2 -Long-acting insulin, will decrease dose slightly -Glucose checks and insulin #Congestive heart failure/sick sinus syndrome status post pacemaker in 2019 -Echocardiogram 05/09/2022 with an EF of 55% with an RVSP of 37 and possible diastolic dysfunction, given recent exacerbation we will repeat -Continue Lasix, BNP improved from Sunday and does not appear overloaded #Hypothyroidism -Continue Synthroid #DVT ppx: Therapeutic on Coumadin Moon Choudhury MD Time spent in the patient's overall evaluation,decision-making process, review of diagnostic data, adjustment of management, discussion with other providers, nursing nursing and ancillary staff involved in patient's care documentation, 60 minutes Charges/Coding Visit Charges Inpatient E&M: 73833 Init Hosp L2
--- NOTE | 2022-12-13 15:42 | ECHOD_ITS ---
Reason For Study: DYSPNEA/SOB Procedure This was a 2D Doppler, Color Flow transthoracic echocardiogram. The study was technically difficult. PT was coughing and SOB. Exam performed with her sitting upright. Exam performed portable in patient room. Left Ventricle Normal LV size. The estimated ejection fraction is 65 %. Unable to assess diastolic dysfunction. No regional wall motion abnormalities noted. Right Ventricle Normal RV size. ICD or pacer leads identified within the right ventricle. Normal systolic function. Atria The left atrium is mildly enlarged. Normal right atrium. ICD or pacer leads identified within the right atrium. No doppler evidence for ASD. Mitral Valve There is severe mitral annular calcification. There is no mitral valve stenosis. Mild (1+) mitral valve insufficiency. Tricuspid Valve There is no tricuspid stenosis. Trivial tricuspid valve insufficiency. Pulmonary artery systolic pressure is 30 mmHg. Aortic Valve Trisinus/trileaflet aortic valve. Aortic sclerosis, no stenosis. Mild diffuse aortic valve thickening. There is no aortic stenosis. No aortic valve insufficiency. Pulmonic Valve There is no pulmonic valvular stenosis. No pulmonic valve insufficiency. Great Vessels Normal aortic root. Pericardium/Pleural No pericardial effusion. MMode/2D Measurements & Calculations LVIDd: 4.9 cm IVSd: 1.5 cm Ao root diam: 3.6 cm LVIDs: 3.5 cm LVPWd: 1.2 cm RVDd: 3.6 cm FS: 29.2 % LAV(MOD-bp): 73.5 ml LA A4 area: 23.7 cm2 LA dimension(2D): 4.7 cm LAV(MOD-bp) Indexed: 39.5 ml/m2 LAV(MOD-sp2): 76.6 ml LAV(MOD-sp4): 68.8 ml RA A4 area: 19.0 cm2 Doppler Measurements & Calculations MV E max vineet: 154.3 cm/sec Ao V2 max: 141.4 cm/sec LV V1 max: 89.3 cm/sec Ao max P.0 mmHg LV V1 max P.2 mmHg Ao V2 mean: 101.6 cm/sec LV V1 mean P.0 mmHg Ao mean P.7 mmHg LV V1 mean: 68.2 cm/sec Ao V2 VTI: 27.0 cm LV V1 VTI: 17.3 cm AV (velocity ratio): 0.64 MR max vineet: 544.3 cm/sec PA V2 max: 104.7 cm/sec TR max vineet: 266.4 cm/sec MR max P.5 mmHg TR max P.4 mmHg MR mean vineet: 422.4 cm/sec MR mean P.4 mmHg MR VTI: 150.6 cm ECHO/Echo Complete Interpretation Summary The estimated ejection fraction is 65 %. Unable to assess diastolic dysfunction. Mild (1+) mitral valve insufficiency. Aortic sclerosis, no stenosis. Mild diffuse aortic valve thickening. The left atrium is mildly enlarged. Ordering Physician: Moon Choudhury Referring Physician: Marcelino Moon Performed By: Joanne Barillas, MOOK, RVT
[2022-12-13] MEDS: Losartan Potassium 50 MG Tablet PO (20:53)
[2022-12-13] MEDS: guaiFENesin 1,200 MG Tablet 1200 MG PO (20:53)
[2022-12-13] MEDS: Pravastatin 40 MG Tablet PO (20:54)
[2022-12-13] MEDS: Flecainide 100 MG Tablet PO (20:54)
[2022-12-13] MEDS: Insulin Glargine-YFGN 100 UNIT/ML Pen 15 UNIT SC (20:58)
[2022-12-13] MEDS: Insulin Lispro 100 UNIT/ML INSULN.PEN SC (21:07)
[2022-12-13 23:26] LABS: Bedside Glucose 328 mg/dL (74-106)
[2022-12-14] VITALS (13 sets, daily range): BP systolic 120–141; BP diastolic 58–64; PULSE 60–88; RESP 16–19; TEMP 36.6–36.8; O2SAT 94–96; BMI 34.6
[2022-12-14] MEDS: Ipratropium/Albuterol Sulfate 3 ML AMPUL.NEB INHALATION ×5 (03:37→23:40)
[2022-12-14 05:55] LABS: Absolute Lymphocyte Count 0.83 X10^3/uL (0.83-4.51); Absolute Neutrophil Count 4.4 X10^3/uL (2.0-7.7); Basophil# 0.01 X10^3/uL; Basophil% 0.2 % (0-1); Hematocrit 38.9 % (37-47); Hemoglobin 12.6 g/dL (12.0-15.0); Lymphocyte # 0.83 X10^3/ul (0.83-4.51); Lymphocyte % 15.2 % (19-41); Mean Corp Hgb Conc 32.4 g/dL (32-36); Mean Corpuscular Hgb 30.5 pg (27.0-32.0); Mean Corpuscular Volume 94.2 fL (81-99); Mean Platelet Vol. 10.9 fl (6.2-12.0); Monocyte# 0.19 X10^3/uL; Monocyte% 3.5 % (0-10); NRBC Flagged by Analyzer 0 % (0-5); Neutrophil % 80.7 % (47-70); Platelet Count 231 K/mm3 (150-450); RBC Distribution Width CV 14.1 % (11.6-14.6); RBC Distribution Width SD 48.5 fl (35.1-43.9); Red Blood Count 4.13 M/mm3 (4.2-5.4); White Blood Count 5.5 K/mm3 (4.4-11.0)
[2022-12-14 06:29] LABS: ALB/GLOB Ratio 0.7 RATIO (0.9-2.4); AST(SGOT) 19 U/L (15-37); Alanine Aminotransfer ALT/SGPT 31 U/L (13-56); Albumin, Serum 2.7 g/dL (3.2-5.0); Alkaline Phosphatase 125 U/L (45-117); Anion Gap 10 (5-15); BUN 67 mg/dL (7-18); BUN/Creat Ratio 27.1 RATIO (10-20); Calcium,Total 8.4 mg/dL (8.5-10.1); Chloride 100 mmol/L (98-107); Creatinine, Serum 2.47 mg/dL (0.55-1.02); EST Glomerular Filtration Rate 20 mL/min (>60); Est Glom Filt Rate - Afr Amer 24 mL/min (>60); Estimated Creatinine Clearance 13.65 ml/min; Globulin 3.7 g/dL (2.2-4.2); Glucose 236 mg/dL (74-106); Magnesium 2.4 mg/dL (1.6-2.6); Potassium 4.2 mmol/L (3.5-5.1); Protein, Total 6.4 g/dL (6.4-8.2); Sodium Level 134 mmol/L (136-145)
[2022-12-14 06:32] LABS: International Normalized Ratio 2.6; Prothrombin Time (Protime)PT. 27.9 SECONDS (11.7-14.9)
[2022-12-14] MEDS: Insulin Lispro 100 UNIT/ML INSULN.PEN SC ×3 (06:53→23:01)
[2022-12-14] MEDS: Levothyroxine 175 MCG Tablet PO (06:55)
[2022-12-14 07:26] LABS: Bedside Glucose 221 mg/dL (74-106)
[2022-12-14] MEDS: Losartan Potassium 50 MG Tablet PO ×2 (09:11→23:04)
[2022-12-14] MEDS: guaiFENesin 1,200 MG Tablet 1200 MG PO ×2 (09:11→23:03)
[2022-12-14] MEDS: Metoprolol(XL)Succ 50 MG Tablet PO (09:11)
[2022-12-14] MEDS: Folic Acid 1 MG Tablet PO (09:11)
[2022-12-14] MEDS: Aspirin E.C. 81 MG Tablet PO (09:11)
[2022-12-14] MEDS: Flecainide 100 MG Tablet PO (09:11)
[2022-12-14] MEDS: Allopurinol 300 MG Tablet PO (09:11)
[2022-12-14] MEDS: amLODIPine 10 MG Tablet PO (09:11)
[2022-12-14] MEDS: Furosemide 40 MG Tablet PO ×2 (09:11→17:29)
--- NOTE | 2022-12-14 12:05 | CASEMGMT ---
SCAR SHARPE DC Planning Assessment: Face to Face with patient for initial transition planning/care coordination assessment. Pt sitting up in chair, alert, oriented x3. SCAR SHARPE introduced self and role at [facility], pt voices understanding and is agreeable to particitipating in assessment.? Care providers, pharmacy,?and demographics verified. ? Admitting Dx: hypoxia, URI, possible pneumonia PCP: [facility]: [facility], Madhavi (nephrology) Preferred Pharmacy: [facility] Insurance: [employer] A/B, [place], [facility] Prescription Benefit:?yes Living Will/HPOA: yes/HPOA Jey (spouse), Dominic (son) LNOK: spouse Jey, son Dominic Living Arrangements: pt lives with spouse and adult son in a single story home with two steps to enter. Pt has been independent with all ADLs including self care and household tasks. Transportation: Pt drives and family is able to assist if needed DME: shower chair, high rise toilet, hand held shower, pulse oximeter, glucometer HHC/SNF: pt denies any previous providers for herself ? Plan: Pt plans to return home at discharge with the support of her family and recalls many family members who have worked or are working as healthcare professionals. If home O2 is needed at discharge pt would like [facility] to provide. Will continue to monitor and assist with DC needs as identified. Geo Gtz RN CM
[2022-12-14 12:06] LABS: Bedside Glucose 261 mg/dL (74-106)
--- NOTE | 2022-12-14 12:50 | PCM.PN.HOSP ---
Subjective Subjective Doing well, no issues overnight. Breathing a little bit better than when she came in Objective Data Objective Data Vital Signs: Vital Signs Temp Pulse Resp BP Pulse Ox O2 Del Method O2 Flow Rate 98.2 F 88 18 134/64 H 95 Nasal Cannula 2 12/14/22 09:05 12/14/22 09:11 12/14/22 09:05 12/14/22 09:11 12/14/22 09:19 12/14/22 09:19 12/14/22 09:19 Oxygen Flow Rate (L/min) 2 Oxygen Delivery Method Nasal Cannula Weight: 189 lb 6.033 oz Body Mass Index (BMI) 34.6 Intake & Output: Intake and Output for Last 24 Hours 12/13/22 12/14/22 12/15/22 03:59 03:59 03:59 Intake Total 605 / 605 1165 / 1165 Output Total 600 / 600 Balance 605 / 605 565 / 565 Lab / Micro Data Result Diagrams: 12/14/22 05:42 12/14/22 05:42 Labs: Laboratory Results - last 24 hr 12/13/22 12:33: WBC 7.9, RBC 4.48, Hgb 13.7, Hct 42.2, MCV 94.2, MCH 30.6, MCHC 32.5, RDW Std Deviation 50.0 H, RDW Coeff of Ashley 14.4, Plt Count 238, MPV 10.6, Immature Gran % (Auto) 0.300, Neut % (Auto) 50.9, Lymph % (Auto) 37.6, [place] % (Auto) 7.9, Eos % (Auto) 3.0, Baso % (Auto) 0.3, Absolute Neuts (auto) 4.0, Absolute Lymphs (auto) 2.97, Nucleated RBC % 0 12/13/22 12:33: PT 25.9 H, INR 2.4 12/13/22 12:33: Sodium 135 L, Potassium 4.1, Chloride 103, Carbon Dioxide 25.0, Anion Gap 7, BUN 59 H, Creatinine 2.15 H, Estim Creat Clear Calc 15.68, Est GFR (MDRD) Af Amer 28 L, Est GFR (MDRD) Non-Af 23 L, BUN/Creatinine Ratio 27.4 H, Glucose 122 H, Calcium 8.8, Troponin I High Sens 16 12/13/22 12:33: B-Natriuretic Peptide 441.9 H 12/13/22 19:00: COVID-19 (RICHARD) Not Detected 12/13/22 20:57: POC Glucose 328 H 12/14/22 05:42: PT 27.9 H, INR 2.6 12/14/22 05:42: WBC 5.5, RBC 4.13 L, Hgb 12.6, Hct 38.9, MCV 94.2, MCH 30.5, MCHC 32.4, RDW Std Deviation 48.5 H, RDW Coeff of Ashley 14.1, Plt Count 231, MPV 10.9, Immature Gran % (Auto) 0.400, Neut % (Auto) 80.7 H, Lymph % (Auto) 15.2 L, [place] % (Auto) 3.5, Eos % (Auto) 0.0, Baso % (Auto) 0.2, Absolute Neuts (auto) 4.4, Absolute Lymphs (auto) 0.83, Nucleated RBC % 0 12/14/22 05:42: Sodium 134 L, Potassium 4.2, Chloride 100, Carbon Dioxide 24.0, Anion Gap 10, BUN 67 H, Creatinine 2.47 H, Estim Creat Clear Calc 13.65, Est GFR (MDRD) Af Amer 24 L, Est GFR (MDRD) Non-Af 20 L, BUN/Creatinine Ratio 27.1 H, Glucose 236 H, Calcium 8.4 L, Magnesium 2.4, Total Bilirubin 0.30, AST 19, ALT 31, Alkaline Phosphatase 125 H, Total Protein 6.4, Albumin 2.7 L, Globulin 3.7, Albumin/Globulin Ratio 0.7 L 12/14/22 06:48: POC Glucose 221 H 12/14/22 11:32: POC Glucose 261 H Micro: Microbiology 12/14/22 07:00 Sputum, Expectorated/Coughed Gram Stain - Final 12/14/22 07:00 Urine, Clean Catch Legionella Antigen - Final 12/14/22 07:00 Urine, Clean Catch Streptococcus pneumoniae Antigen (M - Final 12/13/22 19:00 Mucosa - Nasopharyngeal Respiratory Panel (PCR) - Final Radiography Diagnostic Testing: Radiology Impression Chest X-Ray 12/13/22 13:06 IMPRESSION: No acute pulmonary process Electronically Signed: Anthony Rey MD at 13:19 EDT , Echocardiogram 12/13/22 15:42 Interpretation Summary The estimated ejection fraction is 65 %. Unable to assess diastolic dysfunction. Mild (1+) mitral valve insufficiency. Aortic sclerosis, no stenosis. Mild diffuse aortic valve thickening. The left atrium is mildly enlarged. Ordering Physician: Moon Choudhury Referring Physician: Marcelino Moon Performed By: Joanne Barillas, MOOK, RVT Physical Exam Narrative General: Alert, Oriented x3, Cooperative, No apparent distress HEENT: Atraumatic, PERRLA, EOMI, Normocephalic Oral: Moist Mucosa Neck: Supple, No JVD Lungs: Diminished, Normal air movement, No rhonchi, slight wheeze, No rales Cardiovascular: Regular rate, Regular Rhythm, Normal S1, Normal S2, No murmurs Abdomen: Soft, Non Tender, Non-Distended, No Hepato-splenomegaly Extremities: No edema, Capillary Refill Less than 3 Seconds Skin: No rashes, No breakdown Musculoskeletal: No Tenderness to Palpation of Joints or Extremities Neurological: Cranial nerves II-XII grossly intact, Motor Exam 5/5 strength throughout, Sensory exam intact to light touch and pain Psych/Mental Status: Normal Affect, Appropriate Assessment & Plan Assessment/Plan (1) SOB (shortness of breath) on exertion: (2) Hypoxia: PLAN: Plan 1. Acute hypoxia secondary to URI versus diastolic CHF exacerbation ? Echo pending ? Respiratory and COVID panels are negative ? Sputum culture is pending ? Her was recently diagnosed with metapneumovirus ? We will continue with antibiotics for another 24 to 48 hours or until culture results 2. Chronic diastolic CHF/sick sinus syndrome status post pacemaker 2019/HTN/A-fib ? Blood pressure stable ? Can resume her home blood pressure medications ? Echo in 05/09/2022 with an EF of 55% and RVSP of 37 mmHg ? Continue with Coumadin 3. DM 2/CKD 3B ? We will continue to monitor creatinine ? Continue with insulin ? Accu-Cheks ? We will make adjustments as necessary 4. Hypothyroidism ? Stable ? Continue with Synthroid DVT: Coumadin Charges/Coding Visit Charges Inpatient E&M: 28373 Subs Hosp L2
--- NOTE | 2022-12-14 14:56 | CHAPLAIN ---
Type of Pastoral Visit _x__ Initial Visit ___ Follow-up Visit ___ On-call Visit ___ General Patient Visit ___ Spiritual Assessment ___ Family Conference ___ Bereavement ___ Rapid Response ___ Code Blue ___ Other (describe below) Pastoral Care Referral From _x__ Patient ___ Family ___ Nurse ___ Physician ___ Chief Operating Engineer ___ Rv Body Mechanic ___ Other (describe below) Sacrament/Intervention _x__ Active listening ___ Anointing ___ Episcopalian ___ Bereavement ___ Communion ___ Estrellita exploration ___ ___ Life review ___ Prayer ___ Reconciliation ___ Sacrament of Sick _x__ Supportive presence ___ Wedding ___ Other (describe below) Pastoral Comments patient and son are in the room; pt is alert; son gives more details about health of both parents; spouse of pt is in the hospital in [place] and having delirium per family; pt is concerned about her and his health as he has a birthday Sunday, turning 88; otherwise pt goal is to go home possibly tomorrow and has good family support;
[2022-12-14 17:51] LABS: Bedside Glucose 123 mg/dL (74-106)
[2022-12-14] MEDS: Pravastatin 40 MG Tablet PO (23:04)
[2022-12-15] VITALS (14 sets, daily range): BP systolic 125–147; BP diastolic 48–61; PULSE 60–72; RESP 18–20; TEMP 36.2–36.7; O2SAT 93–97; BMI 34.9
[2022-12-15] MEDS: Flecainide 100 MG Tablet PO ×3 (00:35→21:54)
[2022-12-15 01:05] LABS: Bedside Glucose 165 mg/dL (74-106)
[2022-12-15] MEDS: Ipratropium/Albuterol Sulfate 3 ML AMPUL.NEB INHALATION ×6 (03:52→23:22)
--- NOTE | 2022-12-15 04:57 | NURSING ---
Messaged Dr Armijo regarding respiratory suggestion that the patient may benefit from a steroid. Awaiting response
--- NOTE | 2022-12-15 05:01 | PCM.PN.BLA ---
Progress Note Nurse reported that patient is having a lot of inspiratory and expiratory wheezes. Per nurse respiratory gave a treatment and recommended steroids. Solu-Medrol ordered. Also was notified that patient refused bedtime Lantus. Of note patient has prescribed Lantus and correction scale insulin.
--- NOTE | 2022-12-15 05:08 | NURSING ---
Dr franklin responded to message. Orderes received for steroids. Also was notified of pt refusal of hs lantus d/t blood sugar of 165.
[2022-12-15] MEDS: Levothyroxine 175 MCG Tablet PO (05:28)
[2022-12-15] MEDS: 0.9% Saline Lock 10 ML Syringe IV ×3 (05:28→21:57)
[2022-12-15] MEDS: MethylPREDNISolone 125 MG/2 ML Vial IV (05:28)
[2022-12-15 06:58] LABS: International Normalized Ratio 3.5; Prothrombin Time (Protime)PT. 35.1 SECONDS (11.7-14.9)
[2022-12-15 07:11] LABS: Bedside Glucose 111 mg/dL (74-106)
[2022-12-15 07:14] LABS: Anion Gap 11 (5-15); BUN 74 mg/dL (7-18); BUN/Creat Ratio 29.7 RATIO (10-20); Calcium,Total 7.9 mg/dL (8.5-10.1); Chloride 100 mmol/L (98-107); Creatinine, Serum 2.49 mg/dL (0.55-1.02); EST Glomerular Filtration Rate 20 mL/min (>60); Est Glom Filt Rate - Afr Amer 24 mL/min (>60); Estimated Creatinine Clearance 13.54 ml/min; Glucose 109 mg/dL (74-106); Potassium 4.1 mmol/L (3.5-5.1); Sodium Level 136 mmol/L (136-145)
[2022-12-15] MEDS: amLODIPine 10 MG Tablet PO (09:38)
[2022-12-15] MEDS: Metoprolol(XL)Succ 50 MG Tablet PO (09:39)
[2022-12-15] MEDS: guaiFENesin 1,200 MG Tablet 1200 MG PO ×2 (09:39→21:54)
[2022-12-15] MEDS: Losartan Potassium 50 MG Tablet PO ×2 (09:39→21:54)
[2022-12-15] MEDS: Aspirin E.C. 81 MG Tablet PO (09:39)
[2022-12-15] MEDS: Allopurinol 300 MG Tablet PO (09:39)
[2022-12-15] MEDS: Furosemide 20 MG Tablet PO ×2 (09:39→16:22)
[2022-12-15] MEDS: Folic Acid 1 MG Tablet PO (09:39)
[2022-12-15] MEDS: Insulin Lispro 100 UNIT/ML INSULN.PEN SC ×3 (11:25→21:55)
[2022-12-15 12:06] LABS: Bedside Glucose 278 mg/dL (74-106)
--- NOTE | 2022-12-15 15:09 | PN.HOSP_ITS ---
Subjective Subjective Feels a little bit better today, seems to be breathing a bit better Objective Data Objective Data Vital Signs: Vital Signs Temp Pulse Resp BP Pulse Ox O2 Del Method O2 Flow Rate 97.5 F L 60 20 H 135/48 H 96 Nasal Cannula 2 12/15/22 09:35 12/15/22 14:34 12/15/22 14:34 12/15/22 09:39 12/15/22 14:32 12/15/22 09:35 12/15/22 14:32 Oxygen Flow Rate (L/min) 2 Oxygen Delivery Method Nasal Cannula Weight: 190 lb 11.198 oz Body Mass Index (BMI) 34.9 Intake & Output: Intake and Output for Last 24 Hours 12/14/22 12/15/22 12/16/22 03:59 03:59 03:59 Intake Total 605 / 605 1645 / 1645 795 / 795 Output Total 1500 / 1500 Balance 605 / 605 145 / 145 795 / 795 Lab / Micro Data Result Diagrams: 12/14/22 05:42 12/15/22 06:25 Labs: Laboratory Results - last 24 hr 12/14/22 17:28: POC Glucose 123 H 12/14/22 22:58: POC Glucose 165 H 12/15/22 06:25: PT 35.1 H, INR 3.5 12/15/22 06:25: Sodium 136, Potassium 4.1, Chloride 100, Carbon Dioxide 25.0, Anion Gap 11, BUN 74 H, Creatinine 2.49 H, Estim Creat Clear Calc 13.54, Est GFR (MDRD) Af Amer 24 L, Est GFR (MDRD) Non-Af 20 L, BUN/Creatinine Ratio 29.7 H, Glucose 109 H, Calcium 7.9 L 12/15/22 06:51: POC Glucose 111 H 12/15/22 11:20: POC Glucose 278 H Micro: Microbiology 12/14/22 07:00 Sputum, Expectorated/Coughed Gram Stain - Final 12/14/22 07:00 Sputum, Expectorated/Coughed Respiratory Culture - Preliminary Appears to be normal respiratory thais. Further studies to follow. 12/13/22 13:22 Blood Culture (Wb) - Right Wrist Blood Culture - Preliminary No growth in 48 hours. 12/13/22 12:33 Blood Culture (Wb) - Right Forearm Blood Culture - Preliminary No growth in 48 hours. 12/14/22 07:00 Urine, Clean Catch Legionella Antigen - Final 12/14/22 07:00 Urine, Clean Catch Streptococcus pneumoniae Antigen (M - Final 12/13/22 19:00 Mucosa - Nasopharyngeal Respiratory Panel (PCR) - Final Physical Exam Narrative General: Alert, Oriented x3, Cooperative, No apparent distress HEENT: Atraumatic, PERRLA, EOMI, Normocephalic Oral: Moist Mucosa Neck: Supple, No JVD Lungs: Diminished, Normal air movement, coarse breath sounds bilaterally Cardiovascular: Regular rate, Regular Rhythm, Normal S1, Normal S2, No murmurs Abdomen: Soft, Non Tender, Non-Distended, No Hepato-splenomegaly Extremities: No edema, Capillary Refill Less than 3 Seconds Skin: No rashes, No breakdown Musculoskeletal: No Tenderness to Palpation of Joints or Extremities Neurological: Cranial nerves II-XII grossly intact, Motor Exam 5/5 strength throughout, Sensory exam intact to light touch and pain Psych/Mental Status: Normal Affect, Appropriate Assessment & Plan Assessment/Plan (1) SOB (shortness of breath) on exertion: (2) Hypoxia: PLAN: Plan 1. Acute hypoxia secondary to URI versus diastolic CHF exacerbation ? Echo with an EF of 65% ? Respiratory and COVID panels are negative ? Sputum culture is pending, will continue with antibiotics ? Her was recently diagnosed with metapneumovirus ? Steroids were started overnight we will continue for now along with breathing treatments 2. Chronic diastolic CHF/sick sinus syndrome status post pacemaker 2019/HTN/A- fib ? Blood pressure stable, decrease Lasix dosing secondary to a rising creatinine ? Can resume her home blood pressure medications ? Echo in 05/09/2022 with an EF of 55% and RVSP of 37 mmHg ? We will hold Coumadin secondary to an INR of 3.5 3. DM 2/CKD 3B ? We will continue to monitor creatinine ? Continue with insulin ? Accu-Cheks ? We will make adjustments as necessary 4. Hypothyroidism ? Stable ? Continue with Synthroid DVT: Supratherapeutic INR Charges/Coding Visit Charges Inpatient E&M: 57327 Subs Hosp L2
[2022-12-15 17:25] LABS: Bedside Glucose 283 mg/dL (74-106)
[2022-12-15] MEDS: Pravastatin 40 MG Tablet PO (21:54)
[2022-12-15] MEDS: Insulin Glargine-YFGN 100 UNIT/ML Pen 15 UNIT SC (21:54)
[2022-12-15 22:15] LABS: Bedside Glucose 312 mg/dL (74-106)
[2022-12-16] VITALS (13 sets, daily range): BP systolic 144–153; BP diastolic 42–79; PULSE 60–88; RESP 17–20; TEMP 36.4–36.8; O2SAT 86–97; BMI 35.0
[2022-12-16] MEDS: Ipratropium/Albuterol Sulfate 3 ML AMPUL.NEB INHALATION ×6 (03:15→22:55)
[2022-12-16] MEDS: Insulin Lispro 100 UNIT/ML INSULN.PEN SC ×4 (06:25→21:20)
[2022-12-16] MEDS: Levothyroxine 175 MCG Tablet PO (06:26)
[2022-12-16] MEDS: 0.9% Saline Lock 10 ML Syringe IV ×3 (06:26→21:19)
[2022-12-16 06:55] LABS: Bedside Glucose 221 mg/dL (74-106)
[2022-12-16 08:37] LABS: Absolute Lymphocyte Count 0.73 X10^3/uL (0.83-4.51); Absolute Neutrophil Count 11.9 X10^3/uL (2.0-7.7); Basophil# 0.01 X10^3/uL; Basophil% 0.1 % (0-1); Hemoglobin 11.6 g/dL (12.0-15.0); Lymphocyte # 0.73 X10^3/ul (0.83-4.51); Lymphocyte % 5.7 % (19-41); Mean Corp Hgb Conc 32.2 g/dL (32-36); Mean Corpuscular Hgb 30.2 pg (27.0-32.0); Mean Corpuscular Volume 93.8 fL (81-99); Mean Platelet Vol. 10.4 fl (6.2-12.0); Monocyte# 0.14 X10^3/uL; Monocyte% 1.1 % (0-10); NRBC Flagged by Analyzer 0 % (0-5); Neutrophil # 11.91 X10^3/uL (2.7-7.7); Neutrophil % 92.7 % (47-70); Platelet Count 234 K/mm3 (150-450); RBC Distribution Width CV 14.1 % (11.6-14.6); RBC Distribution Width SD 48.4 fl (35.1-43.9); Red Blood Count 3.84 M/mm3 (4.2-5.4); White Blood Count 12.8 K/mm3 (4.4-11.0)
--- NOTE | 2022-12-16 08:42 | CPS ---
PATIENT INCREASED TO 2 LPM.
[2022-12-16] MEDS: amLODIPine 10 MG Tablet PO (08:50)
[2022-12-16] MEDS: Furosemide 20 MG Tablet PO ×2 (08:50→16:49)
[2022-12-16] MEDS: Flecainide 100 MG Tablet PO ×2 (08:50→21:21)
[2022-12-16] MEDS: Metoprolol(XL)Succ 50 MG Tablet PO (08:50)
[2022-12-16] MEDS: Allopurinol 300 MG Tablet PO (08:50)
[2022-12-16] MEDS: Losartan Potassium 50 MG Tablet PO ×2 (08:50→21:19)
[2022-12-16] MEDS: Aspirin E.C. 81 MG Tablet PO (08:50)
[2022-12-16] MEDS: guaiFENesin 1,200 MG Tablet 1200 MG PO ×2 (08:50→21:21)
[2022-12-16] MEDS: Folic Acid 1 MG Tablet PO (08:50)
[2022-12-16 08:54] LABS: Anion Gap 12 (5-15); BUN 87 mg/dL (7-18); BUN/Creat Ratio 38.3 RATIO (10-20); Calcium,Total 8.4 mg/dL (8.5-10.1); Chloride 99 mmol/L (98-107); Creatinine, Serum 2.27 mg/dL (0.55-1.02); EST Glomerular Filtration Rate 22 mL/min (>60); Est Glom Filt Rate - Afr Amer 26 mL/min (>60); Estimated Creatinine Clearance 14.85 ml/min; Glucose 215 mg/dL (74-106); Potassium 4.2 mmol/L (3.5-5.1); Sodium Level 133 mmol/L (136-145)
[2022-12-16 09:06] LABS: International Normalized Ratio 2.7
--- NOTE | 2022-12-16 10:53 | PN_ITS ---
Subjective Subjective Patient seen and examined. She says she feels much better today, and her breathing has improved. Her wheezing has improved. She denies any chest pain, palpitations, nausea, vomiting or diarrhea. Review of systems is otherwise negative. Objective Data Objective Data Vital Signs: Vital Signs Temp Pulse Resp BP Pulse Ox O2 Del Method O2 Flow Rate 98.3 F 66 18 144/79 H 94 Nasal Cannula 2 12/16/22 08:45 12/16/22 08:50 12/16/22 08:45 12/16/22 08:50 12/16/22 08:45 12/16/22 08:45 12/16/22 08:45 Oxygen Flow Rate (L/min) 2 Oxygen Delivery Method Nasal Cannula Weight: 191 lb 9.307 oz Body Mass Index (BMI) 35.0 Intake & Output: Intake and Output for Last 24 Hours 12/14/22 12/15/22 12/16/22 23:59 23:59 23:59 Intake Total 1705 / 1945 1635 / 1635 200 / 200 Output Total 600 / 1500 900 / 900 Balance 1105 / 445 735 / 735 200 / 200 Lab / Micro Data Result Diagrams: 12/16/22 08:03 12/16/22 08:03 Labs: Laboratory Results - last 24 hr 12/15/22 11:20: POC Glucose 278 H 12/15/22 16:19: POC Glucose 283 H 12/15/22 21:49: POC Glucose 312 H 12/16/22 06:24: POC Glucose 221 H 12/16/22 08:03: PT 28.0 H, INR 2.7 12/16/22 08:03: WBC 12.8 H, RBC 3.84 L, Hgb 11.6 L, Hct 36.0 L, MCV 93.8, MCH 30.2, MCHC 32.2, RDW Std Deviation 48.4 H, RDW Coeff of Ashley 14.1, Plt Count 234, MPV 10.4, Immature Gran % (Auto) 0.400, Neut % (Auto) 92.7 H, Lymph % (Auto) 5.7 L, [place] % (Auto) 1.1, Eos % (Auto) 0.0, Baso % (Auto) 0.1, Absolute Neuts (auto) 11.9 H, Absolute Lymphs (auto) 0.73 L, Nucleated RBC % 0 12/16/22 08:03: Sodium 133 L, Potassium 4.2, Chloride 99, Carbon Dioxide 22.0, Anion Gap 12, BUN 87 H, Creatinine 2.27 H, Estim Creat Clear Calc 14.85, Est GFR (MDRD) Af Amer 26 L, Est GFR (MDRD) Non-Af 22 L, BUN/Creatinine Ratio 38.3 H, Glucose 215 H, Calcium 8.4 L Micro: Microbiology 12/14/22 07:00 Sputum, Expectorated/Coughed Gram Stain - Final 12/14/22 07:00 Sputum, Expectorated/Coughed Respiratory Culture - Final 12/13/22 13:22 Blood Culture (Wb) - Right Wrist Blood Culture - Preliminary No growth in 48 hours. 12/13/22 12:33 Blood Culture (Wb) - Right Forearm Blood Culture - Preliminary No growth in 48 hours. 12/14/22 07:00 Urine, Clean Catch Legionella Antigen - Final 12/14/22 07:00 Urine, Clean Catch Streptococcus pneumoniae Antigen (M - Final 12/13/22 19:00 Mucosa - Nasopharyngeal Respiratory Panel (PCR) - Final Physical Exam Const alert, oriented x3 and no apparent distress General Appearance: cooperative HEENT normocephalic, head/scalp atraumatic and moist oral mucous membranes Eyes PERRL and EOMs intact bilaterally Neck no lymphadenopathy and supple Lymph Lymphatic: no lymphadenopathy noted and no lymphedema noted Resp Resp Narrative: mildly diminished breath sounds bilaterally, mild bilateral wheezing, minimal c rackles. On 2L of oxygen by nasal canula Cardio regular rate, regular rhythm, S1 normal heart sound, S2 normal heart sound and no murmurs GI normal to inspection, nondistended, normoactive bowel sounds, soft to palpation and non-tender Extremity normal capillary refill, no clubbing, cyanosis or edema and no calf tenderness Skin General Skin Exam: no breakdown Neuro CN's II-XII intact bilaterally, no focal motor deficits, no sensory deficits noted and deep tendon reflexes 2+ bilaterally Psych thought process normal and cooperative Appearance: appropriate Assessment & Plan Assessment/Plan (1) SOB (shortness of breath) on exertion: (2) Acute bronchitis with bronchospasm: (3) CHF exacerbation: PLAN: Plan #Hypoxia due to acute on chronic HFrEF and URTI * feels her breathing is improving. * covid test and respiratory panel were negative. * on IV solumedrol. * Breathing treatment with bronchodilators * also on antibiotics- ceftriaxone * titrate oxygen to maintain sats >90% * Sick sinus syndrome s/p pacemaker: had pacemaker inserted in 2019. #Afib: on coumadin. coumadin was held due to elevated INR. on flecainide and metoprolol. Will resume coumadin as INR is 1.7 #CKD stage 3B: Cr has trended down to 2.27 from 2.49 yesterday. Baseline Cr is ~ 1.8, though Cr has ranged from 1.8-2.2. Will monitor #Type 2 diabetes mellitus: on ISS. On lantus 16 units qhs.. Accuchecks ACHS #Hypothyroidism: on synthroid #Hypertension: on admlodipine and losartan. as well as metoprolol DVT prophylaxis: on coumadin which was held as INR was 3.5. INR now 2.7. Will resume coumadin Charges/Coding Visit Charges Inpatient E&M: 99666 Subs Hosp L2
[2022-12-16 12:20] LABS: Bedside Glucose 363 mg/dL (74-106)
[2022-12-16 17:11] LABS: Bedside Glucose 282 mg/dL (74-106)
[2022-12-16] MEDS: Senna/Docusate Sodium 1 Tablet 2 TABLET PO (21:19)
[2022-12-16] MEDS: Insulin Glargine-YFGN 100 UNIT/ML Pen 15 UNIT SC (21:20)
[2022-12-16] MEDS: Pravastatin 40 MG Tablet PO (21:21)
[2022-12-16] MEDS: Cholecalciferol (VIT D3) 25 MCG TABLET (1,000 UNITS) PO (21:29)
[2022-12-16 22:05] LABS: Bedside Glucose 344 mg/dL (74-106)
[2022-12-17] VITALS (9 sets, daily range): BP systolic 117–125; BP diastolic 63–83; PULSE 77–85; RESP 17–18; TEMP 36.6–36.8; O2SAT 86–98; BMI 35.6
[2022-12-17] MEDS: Ipratropium/Albuterol Sulfate 3 ML AMPUL.NEB INHALATION ×3 (03:27→10:49)
[2022-12-17] MEDS: 0.9% Saline Lock 10 ML Syringe IV ×2 (06:11→13:03)
[2022-12-17] MEDS: Levothyroxine 175 MCG Tablet PO (06:11)
[2022-12-17] MEDS: Senna/Docusate Sodium 1 Tablet 2 TABLET PO (06:11)
[2022-12-17] MEDS: Insulin Lispro 100 UNIT/ML INSULN.PEN SC ×2 (06:14→12:07)
[2022-12-17 06:23] LABS: Absolute Lymphocyte Count 0.67 X10^3/uL (0.83-4.51); Absolute Neutrophil Count 12.4 X10^3/uL (2.0-7.7); Basophil# 0.01 X10^3/uL; Basophil% 0.1 % (0-1); Hematocrit 35.6 % (37-47); Hemoglobin 11.7 g/dL (12.0-15.0); Lymphocyte # 0.67 X10^3/ul (0.83-4.51); Mean Corp Hgb Conc 32.9 g/dL (32-36); Mean Corpuscular Hgb 30.7 pg (27.0-32.0); Mean Corpuscular Volume 93.4 fL (81-99); Mean Platelet Vol. 10.8 fl (6.2-12.0); Monocyte% 2.2 % (0-10); NRBC Flagged by Analyzer 0 % (0-5); Neutrophil # 12.38 X10^3/uL (2.7-7.7); Neutrophil % 91.9 % (47-70); Platelet Count 257 K/mm3 (150-450); RBC Distribution Width CV 14.1 % (11.6-14.6); RBC Distribution Width SD 48.1 fl (35.1-43.9); Red Blood Count 3.81 M/mm3 (4.2-5.4); White Blood Count 13.5 K/mm3 (4.4-11.0)
[2022-12-17 06:28] LABS: International Normalized Ratio 2.6; Prothrombin Time (Protime)PT. 27.5 SECONDS (11.7-14.9)
[2022-12-17 06:55] LABS: Bedside Glucose 220 mg/dL (74-106)
[2022-12-17 06:55] LABS: Anion Gap 10 (5-15); BUN 93 mg/dL (7-18); BUN/Creat Ratio 38.9 RATIO (10-20); Calcium,Total 8.4 mg/dL (8.5-10.1); Chloride 99 mmol/L (98-107); Creatinine, Serum 2.39 mg/dL (0.55-1.02); EST Glomerular Filtration Rate 21 mL/min (>60); Est Glom Filt Rate - Afr Amer 25 mL/min (>60); Estimated Creatinine Clearance 14.11 ml/min; Glucose 259 mg/dL (74-106); Potassium 4.3 mmol/L (3.5-5.1); Sodium Level 132 mmol/L (136-145)
[2022-12-17] MEDS: Allopurinol 300 MG Tablet PO (09:56)
[2022-12-17] MEDS: Aspirin E.C. 81 MG Tablet PO (09:56)
[2022-12-17] MEDS: guaiFENesin 1,200 MG Tablet 1200 MG PO (09:57)
[2022-12-17] MEDS: Furosemide 20 MG Tablet PO (09:57)
[2022-12-17] MEDS: Losartan Potassium 50 MG Tablet PO (09:57)
[2022-12-17] MEDS: Flecainide 100 MG Tablet PO (09:57)
[2022-12-17] MEDS: Folic Acid 1 MG Tablet PO (09:57)
[2022-12-17] MEDS: Cholecalciferol (VIT D3) 25 MCG TABLET (1,000 UNITS) PO (09:57)
[2022-12-17] MEDS: amLODIPine 10 MG Tablet PO (09:58)
[2022-12-17] MEDS: Empagliflozin 10 MG Tablet PO (09:58)
[2022-12-17] MEDS: Metoprolol(XL)Succ 50 MG Tablet PO (09:58)
--- NOTE | 2022-12-17 11:17 | PCM.DC ---
Discharge Instructions Diet Discharge Diet: Low fat / Low cholesterol Activity Discharge Activity: Return to Normal Activity Weight Bearing Status: Weight bearing as tolerated Dressing / Incision Call your doctor if you observe: Fever of 101 or Higher, Shortness of breath and Dizziness Follow Up Care Test Results: Test results from this visit will be discussed in further detail at your follow-up appointment, if applicable. Discharge Plan Admission Admit Date/Time: 12/13/22 15:21 Primary Reason for Your Visit: acute COPD and heart failure exacerbation Attending Provider: Angelique Garcia Primary Care Provider: Marcelino Moon Consulting Providers: Moon Choudhury ; Phong Gallegos Instructions Additional Instructions / Restrictions: use oxygen for shortness of breath as needed. FOllow up with PCP within 2-3 days for evaluation of INR to ensure it is within therapeutic range Discharge Orders/Prescriptions Prescriptions: New prednisone 20 mg tablet 40 mg PO DAILY Qty: 10 0RF Continued folic acid 1 mg tablet 1 mg PO DAILY Invokana 100 mg tablet 100 mg PO DAILY Hold Instructions: Hold for 1 week. 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 insulin lispro 100 unit/mL solution 10 unit subcut TIDCM insulin glargine 100 unit/mL solution 20 unit subcut QHS levothyroxine 175 mcg tablet 175 mcg PO DAILY triamcinolone acetonide 0.5 % cream 1 applic topical BID allopurinol 300 MG tablet 300 mg PO DAILY albuterol sulfate 1 INHALER inhaler 2 puff inhalation Q4H PRN PRN (Reason: Wheezing) cholecalciferol (vitamin D3) 25 mcg (1,000 unit) tablet 1,000 unit PO BID aspirin 81 mg Tablet,Delayed Release (Dr/Ec) 81 mg PO DAILY warfarin 4 mg tablet 6 mg PO SUFR Protocol: Dose Management Condition: Sunday Dose/Route: 6 mg Instruction: 1.5 x 4 mg tablets Condition: Sunday Dose/Route: 4 mg Instruction: 1 x 4 mg tablet Condition: Sunday Dose/Route: 4 mg Instruction: 1 x 4 mg tablet Condition: Sunday Dose/Route: 4 mg Instruction: 1 x 4 mg tablet Condition: Dose/Route: 4 mg Instruction: 1 x 4 mg tablet Condition: Sunday Dose/Route: 6 mg Instruction: 1.5 x 4 mg tablets Condition: Sunday Dose/Route: 6 mg Instruction: 1.5 x 4 mg tablets Protocol Text: Adjustment Start Date: Sunday12/12/22 INR Value: 2.8 INR Date: 12/12/22 Recheck Date: 01/09/23 Centrum Chewables 8 mg-400 mcg- 10 mcg Tablet,Chewable 1 tab PO DAILY pravastatin 40 mg tablet 40 mg PO DAILY warfarin 4 mg tablet 4 mg PO MOTUWETH Protocol: Dose Management Condition: Sunday Dose/Route: 6 mg Instruction: 1.5 x 4 mg tablets Condition: Sunday Dose/Route: 4 mg Instruction: 1 x 4 mg tablet Condition: Sunday Dose/Route: 4 mg Instruction: 1 x 4 mg tablet Condition: Sunday Dose/Route: 4 mg Instruction: 1 x 4 mg tablet Condition: Dose/Route: 4 mg Instruction: 1 x 4 mg tablet Condition: Sunday Dose/Route: 6 mg Instruction: 1.5 x 4 mg tablets Condition: Sunday Dose/Route: 6 mg Instruction: 1.5 x 4 mg tablets Protocol Text: Adjustment Start Date: Sunday12/12/22 INR Value: 2.8 INR Date: 12/12/22 Recheck Date: 01/09/23 metoprolol succinate 50 mg Tablet Extended Release 24 Hr 50 mg PO DAILY Qty: 30 0RF Coricidin D 2 tab PO/SL Q4H PRN (Reason: Cold Symptoms) Elderberry 1 tab PO/SL DAILY biotin 1 tab PO/SL DAILY zinc 1 tab PO/SL DAILY amlodipine 10 mg tablet 10 mg PO DAILY Qty: 90 3RF losartan 50 mg tablet 50 mg PO BID Qty: 180 3RF Rx Instructions: furosemide 40 mg tablet 40 mg PO BID Qty: 180 3RF Hold Instructions: Hold furosemide now. Start furosemide 40 mg daily on Sunday or Sunday depending on leg swelling. Take an additional 40 mg dose at 5 PM for increased leg swelling or weight gain 5 pounds in 1 week. flecainide 100 mg tablet 100 mg PO BID Qty: 180 3RF Referrals / Follow Up: Marcelino Moon DO [Primary Care Provider] - Within 2 Weeks Disposition Disposition (needs filled in before D/C Order can be placed): Home, Self Care
--- NOTE | 2022-12-17 11:21 | PCM.DC.SUM ---
Providers Date of Admission: 12/13/22 Date of Discharge: 12/17/22 Primary Care Physician: Dr. Marcelino Moon DO Reason For Visit: HYPOXIA, WORSENING SOB Diagnosis Discharge Diagnosis (1) SOB (shortness of breath) on exertion: Status: Inactive Code(s): R06.02 - Shortness of breath (2) Acute bronchitis with bronchospasm: Status: Acute Code(s): J20.9 - Acute bronchitis, unspecified (3) CHF exacerbation: Status: Inactive Code(s): I50.9 - Heart failure, unspecified Plan #Hypoxia due to acute on chronic HFrEF and URTI feels her breathing is improving. covid test and respiratory panel were negative. on IV solumedrol. Breathing treatment with bronchodilators also on antibiotics- ceftriaxone titrate oxygen to maintain sats >90% Sick sinus syndrome s/p pacemaker: had pacemaker inserted in 2019. #Afib: on coumadin. coumadin was held due to elevated INR. on flecainide and metoprolol. Will resume coumadin as INR is 1.7 #CKD stage 3B: Cr has trended down to 2.27 from 2.49 yesterday. Baseline Cr is ~ 1.8, though Cr has ranged from 1.8-2.2. Will monitor #Type 2 diabetes mellitus: on ISS. On lantus 16 units qhs.. Accuchecks ACHS #Hypothyroidism: on synthroid #Hypertension: on admlodipine and losartan. as well as metoprolol DVT prophylaxis: on coumadin which was held as INR was 3.5. INR now 2.7. Will resume coumadin Medications at Discharge Home Medications albuterol sulfate 90 mcg/actuation aerosol inhaler 2 puff inhalation Q4H PRN PRN Wheezing 08/10/15 allopurinol 300 mg tablet 300 mg PO DAILY gout 08/10/15 folic acid 1 mg tablet 1 mg PO DAILY SUPPLEMENT 12/04/19 canagliflozin 100 mg tablet (Invokana) 100 mg PO DAILY HEART 04/25/21 cholecalciferol (vitamin D3) 25 mcg (1,000 unit) tablet 1,000 unit PO BID supplement 04/25/21 insulin glargine 100 unit/mL subcutaneous solution 20 unit subcut QHS blood glucose 04/25/21 insulin lispro 100 unit/mL subcutaneous solution 10 unit subcut TIDCM blood glucose 04/25/21 levothyroxine 175 mcg tablet 175 mcg PO DAILY THYROID 04/25/21 triamcinolone acetonide 0.5 % topical cream 1 applic topical BID RASH 04/25/21 amlodipine 10 mg tablet 10 mg PO DAILY blood pressure #90 tabs 06/14/21 losartan 50 mg tablet 50 mg PO BID HTN #180 tabs 03/06/22 aspirin 81 mg tablet,delayed release 81 mg PO DAILY BLOOD THINNER 06/19/22 [id number] 8 mg-folic ac 400 mcg-vit K 10 mcg chew tablet (Centrum Chewables) 1 tab PO DAILY HEALTH MAINTENANCE 06/19/22 pravastatin 40 mg tablet 40 mg PO DAILY CHOLESTEROL 06/19/22 warfarin 4 mg tablet 4 mg PO MOTUWETH BLOOD THINNER 06/19/22 warfarin 4 mg tablet 6 mg PO SUFRSA BLOOD THINNER 06/19/22 metoprolol succinate 50 mg tablet,extended release 24 hr 50 mg PO DAILY #30 tabs 06/21/22 flecainide 100 mg tablet 100 mg PO BID HEART #180 tabs 09/05/22 Coricidin D 2 tab PO/SL Q4H PRN Cold Symptoms 12/13/22 Elderberry 1 tab PO/SL DAILY SUPPLEMENT 12/13/22 biotin 1 tab PO/SL DAILY HAIR, SKIN, AND NAILS 12/13/22 zinc 1 tab PO/SL DAILY SUPPLEMENT 12/13/22 furosemide 40 mg tablet 40 mg PO DAILY #30 tabs 12/17/22 prednisone 20 mg tablet 40 mg PO DAILY #10 tabs 12/17/22 Hospital Course Operations None Procedures 2-D Echocardiogram Summary of Care Provided Minutes Spent on Discharge: 50 Hospital Course: Patient is an 82-year-old female with a past medical history as outlined who was admitted through the ED with a complaint of worsening shortness of breath. She had been treated with bronchitis about a month prior to admission and these current symptoms had started about a week before admission. She had assisted cough and congestion as well as wheezing. She had been seen in the ED a few days prior to admission and was noted to have increased BNP. Her Lasix was resumed and patient declined hospital admission at that time. However subsequently came back because her shortness of breath had worsened. BNP was 441 and chest x-ray showed no acute cardiopulmonary process. She was saturating at 87% on room air. Hospitalist service was consulted for admission and she was admitted to be managed for hypoxia due to bronchitis and probable acute on chronic heart failure. Her Coumadin was initially held as INR was elevated by an subsequently trended down the Coumadin was resumed. She was diuresed with Lasix. Creatinine trended upward so Lasix was cut down. Shortness of breath improved and wheezing resolved. She was placed on IV Solu-Medrol. COVID test and respiratory panel were negative. She was placed on IV ceftriaxone initially. Patient felt much better and she had walking pulse ox which showed that she would require about 2 L of oxygen. She was discharged on 12/17/2022 on 2 L of oxygen as well as p.o. prednisone 40 mg daily for 5 days. She is to follow-up with her primary care doctor within 1 to 2 weeks. Patient seen and examined prior to discharge. Her symptoms had improved and she felt much better. Review of systems otherwise negative. Labs and vitals reviewed. Medication reviewed and reconciled. Physical Exam Const alert, oriented x3 and no apparent distress General Appearance: cooperative, comfortable and well kempt HEENT normocephalic, head/scalp atraumatic, hearing grossly normal bilaterally and moist oral mucous membranes Mouth: oral and palatal mucosa normal Eyes PERRL and EOMs intact bilaterally Neck no lymphadenopathy and supple Lymph Lymphatic: no lymphadenopathy noted and no lymphedema noted Resp Resp Narrative: mildly diminished breath sounds bilaterally, no wheezing or crackles. On 2L of oxygen by nasal canula Cardio regular rate, regular rhythm, S1 normal heart sound, S2 normal heart sound and no murmurs GI normal to inspection, nondistended, normoactive bowel sounds, soft to palpation and non-tender Extremity normal to inspection, full ROM, normal capillary refill, no clubbing, cyanosis or edema and no calf tenderness Skin General Skin Exam: no breakdown Neuro oriented x3, CN's II-XII intact bilaterally, moves all extremities, no focal motor deficits, no sensory deficits noted and deep tendon reflexes 2+ bilaterally Sensorium / Orientation: awake and alert Psych thought process normal and cooperative Appearance: appropriate Weight / BMI Weight Weight: 194 lb 14.218 oz Body Mass Index (BMI) 35.6 ABG / Lab / Microbiology Data Result Diagrams: 12/17/22 05:49 12/17/22 05:49 Laboratory: Laboratory Results - last 24 hr 12/16/22 11:30: POC Glucose 363 H 12/16/22 16:46: POC Glucose 282 H 12/16/22 21:17: POC Glucose 344 H 12/17/22 05:49: PT 27.5 H, INR 2.6 12/17/22 05:49: WBC 13.5 H, RBC 3.81 L, Hgb 11.7 L, Hct 35.6 L, MCV 93.4, MCH 30.7, MCHC 32.9, RDW Std Deviation 48.1 H, RDW Coeff of Ashley 14.1, Plt Count 257, MPV 10.8, Immature Gran % (Auto) 0.800, Neut % (Auto) 91.9 H, Lymph % (Auto) 5.0 L, [place] % (Auto) 2.2, Eos % (Auto) 0.0, Baso % (Auto) 0.1, Absolute Neuts (auto) 12.4 H, Absolute Lymphs (auto) 0.67 L, Nucleated RBC % 0 12/17/22 05:49: Sodium 132 L, Potassium 4.3, Chloride 99, Carbon Dioxide 23.0, Anion Gap 10, BUN 93 H, Creatinine 2.39 H, Estim Creat Clear Calc 14.11, Est GFR (MDRD) Af Amer 25 L, Est GFR (MDRD) Non-Af 21 L, BUN/Creatinine Ratio 38.9 H, Glucose 259 H, Calcium 8.4 L 12/17/22 06:08: POC Glucose 220 H Microbiology: Microbiology 12/14/22 07:00 Sputum, Expectorated/Coughed Gram Stain - Final 12/14/22 07:00 Sputum, Expectorated/Coughed Respiratory Culture - Final 12/13/22 13:22 Blood Culture (Wb) - Right Wrist Blood Culture - Preliminary No growth in 48 hours. 12/13/22 12:33 Blood Culture (Wb) - Right Forearm Blood Culture - Preliminary No growth in 48 hours. 12/14/22 07:00 Urine, Clean Catch Legionella Antigen - Final 12/14/22 07:00 Urine, Clean Catch Streptococcus pneumoniae Antigen (M - Final 12/13/22 19:00 Mucosa - Nasopharyngeal Respiratory Panel (PCR) - Final D/C Instructions Discharge Diet: Low fat / Low cholesterol Discharge Activity: Return to Normal Activity Weight Bearing Status: Weight bearing as tolerated Call your doctor if you observe: Fever of 101 or Higher, Shortness of breath and Dizziness Meaningful Use Info Meaningful Use Diagnoses (Choose all that apply): CHF CHF MAHSA/ARB ordered at discharge?: Yes Documented LVEF (%): 65 Discharge Plan Admission Admit Date/Time: 12/13/22 15:21 Primary Reason for Your Visit: acute COPD and heart failure exacerbation Attending Provider: Angelique Garcia Primary Care Provider: Marcelino Moon Consulting Providers: Moon Choudhury ; Phong Gallegos Instructions Patient Instructions: Coping with Heart Failure, ED Heart Failure, Congestive (CHF) Additional Instructions / Restrictions: use oxygen for shortness of breath as needed. FOllow up with PCP within 2-3 days for evaluation of INR to ensure it is within therapeutic range Discharge Orders/Prescriptions Prescriptions: New prednisone 20 mg tablet 40 mg PO DAILY Qty: 10 0RF furosemide 40 mg tablet 40 mg PO DAILY Qty: 30 1RF Continued folic acid 1 mg tablet 1 mg PO DAILY Invokana 100 mg tablet 100 mg PO DAILY Hold Instructions: Hold for 1 week. Follow-up with the electrical maintenance technician. insulin lispro 100 unit/mL solution 10 unit subcut TIDCM insulin glargine 100 unit/mL solution 20 unit subcut QHS levothyroxine 175 mcg tablet 175 mcg PO DAILY triamcinolone acetonide 0.5 % cream 1 applic topical BID allopurinol 300 MG tablet 300 mg PO DAILY albuterol sulfate 1 INHALER inhaler 2 puff inhalation Q4H PRN PRN (Reason: Wheezing) cholecalciferol (vitamin D3) 25 mcg (1,000 unit) tablet 1,000 unit PO BID aspirin 81 mg Tablet,Delayed Release (Dr/Ec) 81 mg PO DAILY warfarin 4 mg tablet 6 mg PO Protocol: Dose Management Condition: Sunday Dose/Route: 6 mg Instruction: 1.5 x 4 mg tablets Condition: Sunday Dose/Route: 4 mg Instruction: 1 x 4 mg tablet Condition: Sunday Dose/Route: 4 mg Instruction: 1 x 4 mg tablet Condition: Sunday Dose/Route: 4 mg Instruction: 1 x 4 mg tablet Condition: Dose/Route: 4 mg Instruction: 1 x 4 mg tablet Condition: Sunday Dose/Route: 6 mg Instruction: 1.5 x 4 mg tablets Condition: Sunday Dose/Route: 6 mg Instruction: 1.5 x 4 mg tablets Protocol Text: Adjustment Start Date: Sunday12/12/22 INR Value: 2.8 INR Date: 12/12/22 Recheck Date: 01/09/23 Centrum Chewables 8 mg-400 mcg- 10 mcg Tablet,Chewable 1 tab PO DAILY pravastatin 40 mg tablet 40 mg PO DAILY warfarin 4 mg tablet 4 mg [facility] Protocol: Dose Management Condition: Sunday Dose/Route: 6 mg Instruction: 1.5 x 4 mg tablets Condition: Sunday Dose/Route: 4 mg Instruction: 1 x 4 mg tablet Condition: Sunday Dose/Route: 4 mg Instruction: 1 x 4 mg tablet Condition: Sunday Dose/Route: 4 mg Instruction: 1 x 4 mg tablet Condition: Dose/Route: 4 mg Instruction: 1 x 4 mg tablet Condition: Sunday Dose/Route: 6 mg Instruction: 1.5 x 4 mg tablets Condition: Sunday Dose/Route: 6 mg Instruction: 1.5 x 4 mg tablets Protocol Text: Adjustment Start Date: Sunday12/12/22 INR Value: 2.8 INR Date: 12/12/22 Recheck Date: 01/09/23 metoprolol succinate 50 mg Tablet Extended Release 24 Hr 50 mg PO DAILY Qty: 30 0RF Coricidin D 2 tab PO/SL Q4H PRN (Reason: Cold Symptoms) Elderberry 1 tab PO/SL DAILY biotin 1 tab PO/SL DAILY zinc 1 tab PO/SL DAILY amlodipine 10 mg tablet 10 mg PO DAILY Qty: 90 3RF losartan 50 mg tablet 50 mg PO BID Qty: 180 3RF Rx Instructions: flecainide 100 mg tablet 100 mg PO BID Qty: 180 3RF Discontinued furosemide 40 mg tablet 40 mg PO BID Qty: 180 3RF Hold Instructions: Hold furosemide now. Start furosemide 40 mg daily on Sunday or Sunday depending on leg swelling. Take an additional 40 mg dose at 5 PM for increased leg swelling or weight gain 5 pounds in 1 week. Referrals / Follow Up: Marcelino Moon DO [Primary Care Provider] - Within 2 Weeks Disposition Disposition (needs filled in before D/C Order can be placed): Home, Self Care Charges/Coding Visit Charges Inpatient E&M: 08039 Disch Hosp >30min
--- NOTE | 2022-12-17 11:55 | NURSING ---
Jose L notified of need for home oxygen.
[2022-12-17 12:46] LABS: Bedside Glucose 374 mg/dL (74-106)
--- NOTE | 2022-12-17 13:20 | NURSING ---
Prescription and oxygen qualifications faxed to [facility] [place].
== END 2022-12-17 13:49 | disposition home or self-care (01) | DRG 291 ==
LOC: ED 14:59 → PCU 15:54
PROVIDERS: Family Medicine; Admitting Provider Internal Medicine; Emergency Provider Emergency Medicine; PCP Student in an Organized Health Care Education/Training Program; Visit Provider Student in an Organized Health Care Education/Training Program
DX: I13.0 Hypertensive heart and chronic kidney disease with heart failure and stage 1 through stage 4 chronic kidney disease, or unspecified chronic kidney disease (principal); I50.43 Acute on chronic combined systolic (congestive) and diastolic (congestive) heart failure; I49.5 Sick sinus syndrome; E11.22 Type 2 diabetes mellitus with diabetic chronic kidney disease; N18.32 Chronic kidney disease, stage 3b; I48.91 Unspecified atrial fibrillation; Z79.4 Long term (current) use of insulin; J20.9 Acute bronchitis, unspecified; E78.5 Hyperlipidemia, unspecified; E03.9 Hypothyroidism, unspecified; M10.9 Gout, unspecified; Z79.01 Long term (current) use of anticoagulants; Z79.82 Long term (current) use of aspirin; R79.1 Abnormal coagulation profile; Z95.0 Presence of cardiac pacemaker
CPT/HCPCS: 36415; 71045; 80048; 80053; 82962; 83735; 83880; 84484; 85025; 85610; 87040; 87070; 87205; 87449; 87633; 87635; 93005; 93306; 94640; 94668; 97110; 97162; 97166; 97530; 99252; 99284; A4216; G0463; J0696; U0003; U0005

== ENCOUNTER 2023-01-24 10:13 | Outpatient (RCR) | payer MEDICARE, OTHER, SELFPAY ==
[2022-12-29 21:28] VITALS: BMI 36.5
[2023-01-12 11:36] LABS: International Normalized Ratio 2.1; Prothrombin Time (Protime)PT. 23.5 SECONDS (11.7-14.9)
[2023-01-24 11:00] LABS: International Normalized Ratio 1.9; Prothrombin Time (Protime)PT. 21.6 SECONDS (11.7-14.9)
[2023-01-24 11:26] LABS: AST(SGOT) 18 U/L (15-37); Alanine Aminotransfer ALT/SGPT 26 U/L (13-56); Albumin, Serum 3.3 g/dL (3.2-5.0); Alkaline Phosphatase 100 U/L (45-117); Bilirubin, Direct 0.15 mg/dL (0.00-0.30); Cholesterol 164 mg/dL (200); Globulin 3.3 g/dL (2.2-4.2); High Density Lipoprotein 58 mg/dL; Protein, Total 6.6 g/dL (6.4-8.2); Triglycerides 117 mg/dL; Very Low Density Lipoprotein 23 mg/dL (5-40)
== END 2023-01-28 00:31 | disposition home or self-care (01) ==
LOC: LAB 10:13
PROVIDERS: Internal Medicine Cardiovascular Disease; PCP Student in an Organized Health Care Education/Training Program; Referring Provider Nurse Practitioner Family; Visit Provider Nurse Practitioner Family
DX: I48.0 Paroxysmal atrial fibrillation (principal); Z79.01 Long term (current) use of anticoagulants; E78.00 Pure hypercholesterolemia, unspecified
CPT/HCPCS: 36415; 80061; 80076; 85610

== ENCOUNTER 2023-02-12 14:15 | Outpatient (RCR) | payer MEDICARE, OTHER, SELFPAY ==
[2023-01-28 00:31] VITALS: BMI 36.5
[2023-02-12 15:20] LABS: International Normalized Ratio 2.9
== END 2023-02-12 16:00 | disposition home or self-care (01) ==
LOC: LAB 14:15
PROVIDERS: PCP Student in an Organized Health Care Education/Training Program; Referring Provider Nurse Practitioner Family; Visit Provider Nurse Practitioner Family
DX: I48.0 Paroxysmal atrial fibrillation (principal); Z79.01 Long term (current) use of anticoagulants
CPT/HCPCS: 36415; 85610

== ENCOUNTER 2023-03-13 10:42 | Outpatient (RCR) | payer MEDICARE, OTHER, SELFPAY ==
[2023-03-01 08:08] VITALS: BMI 36.5
[2023-03-06 12:24] LABS: International Normalized Ratio 3.2; Prothrombin Time (Protime)PT. 33.5 SECONDS (11.7-14.9)
[2023-03-13 11:24] LABS: International Normalized Ratio 2.4; Prothrombin Time (Protime)PT. 26.7 SECONDS (11.7-14.9)
== END 2023-03-13 18:00 | disposition home or self-care (01) ==
LOC: LAB 10:42
PROVIDERS: PCP Student in an Organized Health Care Education/Training Program; Referring Provider Nurse Practitioner Family; Visit Provider Nurse Practitioner Family
DX: I48.0 Paroxysmal atrial fibrillation (principal); Z79.01 Long term (current) use of anticoagulants
CPT/HCPCS: 36415; 85610

== ENCOUNTER 2023-04-19 11:19 | Outpatient (RCR) | payer MEDICARE, OTHER, SELFPAY ==
[2023-03-30 21:07] VITALS: BMI 36.5
[2023-04-04 14:28] LABS: International Normalized Ratio 1.8; Prothrombin Time (Protime)PT. 21.3 SECONDS (11.7-14.9)
[2023-04-11 11:20] LABS: Hemoglobin 12.4 g/dL (12.0-15.0); Mean Corpuscular Hgb 30.2 pg (27.0-32.0); Mean Corpuscular Volume 97.3 fL (81-99); Platelet Count 212 K/mm3 (150-450); RBC Distribution Width CV 14.4 % (11.6-14.6); RBC Distribution Width SD 51.2 fl (35.1-43.9); Red Blood Count 4.11 M/mm3 (4.2-5.4); White Blood Count 9.2 K/mm3 (4.4-11.0)
[2023-04-11 11:28] LABS: International Normalized Ratio 1.7; Prothrombin Time (Protime)PT. 19.6 SECONDS (11.7-14.9)
[2023-04-11 11:41] LABS: Anion Gap 4 (5-15); BNP,B-Type NATRIURETIC PEPTIDE 333.4 pg/mL (0-100); BUN 49 mg/dL (7-18); BUN/Creat Ratio 23.3 RATIO (10-20); Calcium,Total 8.5 mg/dL (8.5-10.1); Chloride 108 mmol/L (98-107); EST Glomerular Filtration Rate 24 mL/min (>60); Est Glom Filt Rate - Afr Amer 29 mL/min (>60); Glucose 109 mg/dL (74-106); Potassium 4.1 mmol/L (3.5-5.1); Sodium Level 140 mmol/L (136-145)
[2023-04-19 11:56] LABS: Hematocrit 39.7 % (37-47); Hemoglobin 12.6 g/dL (12.0-15.0); Mean Corp Hgb Conc 31.7 g/dL (32-36); Mean Corpuscular Hgb 30.7 pg (27.0-32.0); Mean Corpuscular Volume 96.8 fL (81-99); Mean Platelet Vol. 11.6 fl (6.2-12.0); Platelet Count 195 K/mm3 (150-450); RBC Distribution Width CV 14.4 % (11.6-14.6); RBC Distribution Width SD 51.5 fl (35.1-43.9); White Blood Count 9.7 K/mm3 (4.4-11.0)
[2023-04-19 12:08] LABS: International Normalized Ratio 1.9; Prothrombin Time (Protime)PT. 21.8 SECONDS (11.7-14.9)
[2023-04-19 12:30] LABS: Albumin, Serum 3.2 g/dL (3.2-5.0); BUN 51 mg/dL (7-18); BUN/Creat Ratio 24.4 RATIO (10-20); Calcium,Total 8.6 mg/dL (8.5-10.1); Chloride 107 mmol/L (98-107); Creatinine, Serum 2.09 mg/dL (0.55-1.02); EST Glomerular Filtration Rate 24 mL/min (>60); Est Glom Filt Rate - Afr Amer 29 mL/min (>60); Glucose 108 mg/dL (74-106); PTHIN 148.8 pg/mL (18.4-80.1); Potassium 4.1 mmol/L (3.5-5.1); Sodium Level 139 mmol/L (136-145)
[2023-04-19 12:34] LABS: Protein:Creat Ratio 705 mg/g CRE (0-200)
[2023-04-19 12:35] LABS: Vitamin D,25 Hydroxy 76.2 ng/mL
== END 2023-04-30 18:00 | disposition home or self-care (01) ==
LOC: LAB 11:19
PROVIDERS: Internal Medicine Cardiovascular Disease; Internal Medicine Nephrology; PCP Student in an Organized Health Care Education/Training Program; Referring Provider Nurse Practitioner Family; Visit Provider Nurse Practitioner Family
DX: I48.0 Paroxysmal atrial fibrillation (principal); Z79.01 Long term (current) use of anticoagulants; E55.9 Vitamin D deficiency, unspecified; N18.32 Chronic kidney disease, stage 3b; N25.81 Secondary hyperparathyroidism of renal origin; R06.00 Dyspnea, unspecified; R80.9 Proteinuria, unspecified
CPT/HCPCS: 36415; 80048; 80069; 82306; 82570; 83880; 83970; 84156; 85027; 85610

== ENCOUNTER 2023-05-16 12:00 | Outpatient (RCR) | payer MEDICARE, OTHER, SELFPAY ==
[2023-05-01 00:07] VITALS: BMI 36.5
[2023-05-16 12:47] LABS: International Normalized Ratio 2.1; Prothrombin Time (Protime)PT. 23.5 SECONDS (11.7-14.9)
== END 2023-05-16 18:00 | disposition home or self-care (01) ==
LOC: LAB 12:00
PROVIDERS: PCP Student in an Organized Health Care Education/Training Program; Referring Provider Nurse Practitioner Family; Visit Provider Nurse Practitioner Family
DX: I48.0 Paroxysmal atrial fibrillation (principal); Z79.01 Long term (current) use of anticoagulants
CPT/HCPCS: 36415; 85610

== ENCOUNTER 2023-07-05 16:48 | Inpatient (IN) | payer MEDICARE, OTHER, SELFPAY ==
[2023-07-05] VITALS (8 sets, daily range): BP systolic 128–166; BP diastolic 58–67; PULSE 59–68; RESP 14–22; TEMP 36.4; O2SAT 87–96; BMI 39.6; BMI 46.6
--- NOTE | 2023-07-05 17:25 | EKG12_ITS ---
Test Reason : SOB Blood Pressure : / mmHG Vent. Rate : 063 BPM Atrial Rate : 063 BPM P-R Int : 258 ms QRS Dur : 184 ms QT Int : 534 ms P-R-T Axes : 040 -79 087 degrees QTc Int : 546 ms AV dual-paced rhythm with prolonged AV conduction Abnormal ECG Confirmed by KIP DUTTA, JOLENE ([id number]), city editor MORENA MCINTYRE ([id number]) on 07/10/2023 12:21:39 PM Referred By: Confirmed By:JOLENE SHIN MD
--- NOTE | 2023-07-05 17:27 | ED.VIS.DYS ---
HPI History of Present Illness Chief Complaint: Shortness of Breath Detail of Chief Complaint: Shortness of breath Informant: patient and family Narrative Narrative: Patient presents with increasing exertional dyspnea and shortness of breath for the last month. Patient has history of CHF. Patient has been taking Lasix 40 mg twice a day. She tells me she has been gaining weight and has gained 3 pounds today since this morning. She describes some paroxysmal nocturnal dyspnea. She has a bed that she can adjust and sleeps propped up mostly at night. She denies any chest pain. She denies recent illness. [facility] Medical History Garcia's palsy Bradycardia Cerebrovascular disease CHF (congestive heart failure) CKD (chronic kidney disease), stage IV Diabetes mellitus Dyslipidemia Essential hypertension Fatty liver Gout HLD (hyperlipidemia) HTN (hypertension) Hypothyroid Morbid obesity AJIT (obstructive sleep apnea) Osteoporosis Ovarian cyst, left Paroxysmal atrial fibrillation Sick sinus syndrome Home Medications albuterol sulfate 90 mcg/actuation aerosol inhaler 2 puff inhalation Q4H PRN PRN Wheezing 08/10/15 [History Last Taken 12/13/22] allopurinol 300 mg tablet 300 mg PO DAILY gout 08/10/15 [History Last Taken 12/13/22] folic acid 1 mg tablet 1 mg PO DAILY SUPPLEMENT 12/04/19 [History Last Taken 12/13/22] canagliflozin 100 mg tablet (Invokana) 100 mg PO DAILY HEART 04/25/21 [History Last Taken 12/13/22] cholecalciferol (vitamin D3) 25 mcg (1,000 unit) tablet 1,000 unit PO BID supplement 04/25/21 [History Last Taken 12/13/22] insulin glargine 100 unit/mL subcutaneous solution 17 unit subcut QHS blood glucose 04/25/21 [History Last Taken 12/12/22] insulin lispro 100 unit/mL subcutaneous solution 10 unit subcut TIDCM blood glucose 04/25/21 [History Last Taken 12/12/22] levothyroxine 175 mcg tablet 175 mcg PO DAILY THYROID 04/25/21 [History Last Taken 12/13/22] triamcinolone acetonide 0.5 % topical cream 1 applic topical BID RASH 04/25/21 [History Last Taken Unknown] aspirin 81 mg tablet,delayed release 81 mg PO DAILY BLOOD THINNER 06/19/22 [History Last Taken 12/13/22] [id number] 8 mg-folic ac 400 mcg-vit K 10 mcg chew tablet (Centrum Chewables) 1 tab PO DAILY HEALTH MAINTENANCE 06/19/22 [History Last Taken 12/13/22] warfarin 4 mg tablet 4 mg PO MOTUWETH BLOOD THINNER 06/19/22 [History Last Taken 12/12/22] warfarin 4 mg tablet 6 mg PO SUFRSA BLOOD THINNER 06/19/22 [History Last Taken 12/10/22] flecainide 100 mg tablet 100 mg PO BID HEART #180 tabs 09/05/22 [Rx Last Taken 12/13/22] Coricidin D 2 tab PO/SL Q4H PRN Cold Symptoms 12/13/22 [History Last Taken 12/13/22 10:00] furosemide 40 mg tablet 40 mg PO DAILY #30 tabs 12/17/22 [Rx Last Taken Unknown] pravastatin 40 mg tablet 40 mg PO DAILY CHOLESTEROL #90 tabs 01/01/23 [Rx Last Taken Unknown] doxazosin 2 mg tablet (Cardura) 2 mg PO DAILY #90 tabs 04/26/23 [Rx Last Taken Unknown] albuterol sulfate 2.5 mg/3 mL (0.083 %) solution for nebulization 2.5 mg continuous nebulization Q4H PRN shortness of breath or wheezing 07/05/23 [History Last Taken Unknown] amlodipine 10 mg tablet 10 mg PO DAILY blood pressure 07/05/23 [History Last Taken Unknown] cetirizine 10 mg tablet 10 mg PO DAILY 07/05/23 [History Last Taken Unknown] metoprolol succinate 50 mg tablet,extended release 24 hr 25 mg PO DAILY 07/05/23 [History Last Taken Unknown] montelukast 10 mg tablet 10 mg PO DAILY 07/05/23 [History Last Taken Unknown] Allergy/AdvReac Type Severity Reaction Status Date / Time atorvastatin calcium AdvReac cough Verified 07/05/23 16:49 [From Lipitor] enalapril maleate AdvReac cough Verified 07/05/23 16:49 [From Vasotec] enalaprilat dihydrate AdvReac cough Verified 07/05/23 16:49 [From Vasotec] metolazone AdvReac Other Verified 07/05/23 16:55 simvastatin [From Zocor] AdvReac Other Verified 07/05/23 16:55 Family History Mother CVA (cerebral vascular accident) Hypertension Father Heart disease Myocardial infarction Son Overdose Surgical History Cardiac pacemaker in situ (10/28/18) History of appendectomy History of tubal ligation S/P laparoscopic appendectomy Social History Smoking Status: Never smoker alcohol intake: never substance use type: does not use caffeine: Yes Type: coffee Number of servings: 2 ROS ROS ED Review of Systems ROS Unobtainable: other Constitutional Constitutional ED: Reports lethargy; Denies chills, fever(s), sweats or weight loss Eyes Eyes: Denies blurry vision, change in vision or diplopia ENT ENT ED: Denies rhinorrhea or sore throat Cardiovascular Cardiovascular: Denies chest pain, orthopnea or racing heartbeat Respiratory/Chest Respiratory/Chest: Reports cough, dyspnea and dyspnea on exertion; Denies orthopnea or sputum Gastrointestinal Gastrointestinal: Denies abdominal pain, diarrhea, nausea or vomiting Genitourinary Genitourinary ED: Denies dysuria, hematuria or urinary frequency Musculoskeletal Musculoskeletal: Denies arthralgias, back pain, myalgias or neck pain Integumentary Denies abscess, Abrasions or rash Neurologic Neurologic: Denies headache(s) or weakness Psychiatric Psychiatric: Denies anxiety, depression or suicidal thoughts Endocrine Endocrinology: Denies polydipsia, polyphagia or polyuria Hematologic/Lymphatic Hematologic/Lymphatic: Denies easy bleeding, easy bruising or lymphadenopathy Allergic/Immunologic Allergic/Immunologic ED: Denies mouth swelling, tongue swelling or urticaria EXAM Physical Exam Const Vital Signs: 07/05/23 16:49 07/05/23 17:48 07/05/23 17:48 Temperature 97.5 F L Temperature Source Temporal Pulse Rate 59 L 68 Respiratory Rate 22 H 14 Respiratory Effort Respiratory Depth Respiratory Pattern Blood Pressure 161/61 H 137/58 H Blood Pressure Mean 94 84 Pulse Ox 92 96 96 Oxygen Delivery Method Room Air Room Air Room Air Oxygen Flow Rate (L/min) 07/05/23 17:48 07/05/23 17:35 07/05/23 19:00 Temperature Temperature Source Pulse Rate 63 Respiratory Rate 16 Respiratory Effort Short of Breath Respiratory Depth Normal Respiratory Pattern Normal Normal Blood Pressure Blood Pressure Mean Pulse Ox 87 Oxygen Delivery Method Room Air Room Air Oxygen Flow Rate (L/min) 07/05/23 19:27 07/05/23 19:54 Temperature Temperature Source Pulse Rate 63 66 Respiratory Rate 15 21 H Respiratory Effort Respiratory Depth Respiratory Pattern Blood Pressure 151/64 H 166/67 H Blood Pressure Mean 93 100 Pulse Ox 96 94 Oxygen Delivery Method Nasal Cannula Oxygen Flow Rate (L/min) 2 Positive well nourished and well developed General Appearance ED: well developed and NAD HEENT Reports TM's clear and moist mucous membranes normocephalic and atraumatic; Negative for trauma or tenderness Tympanic Membrane ED: Yes TM's clear Eyes PERRL and EOMs intact bilaterally General Eye ED: Negative for pale conjunctiva or scleral icterus Neck no lymphadenopathy, supple and no JVD General: Negative for tenderness Chest Wall inspection of chest normal and palpation of chest normal Chest: Negative for tenderness Resp normal respiratory effort and clear to auscultation bilaterally Effort and Inspection: Negative for respiratory distress or pain with movement Auscultation: rales and wheezes; Negative for rhonchi or diminished lung sounds Cardio regular rate, regular rhythm, S1 normal heart sound, S2 normal heart sound and no murmurs Peripheral Pulses: pulses 2+ throughout GI normal to inspection, nondistended, normoactive bowel sounds, soft to palpation, non-tender, non-distended and no masses Back/Spine no CVA tenderness and no thoracic nor lumbar tenderness Extremity normal to inspection Extremity Narrative: +2 edema both lower extremities General Extremety ED: Yes edema General Extremity: edema Neuro oriented x3, CN's II-XII intact bilaterally, no sensory deficits noted and gait normal Sensorium / Orientation: awake, alert, oriented to person, oriented to place and oriented to time Motor Exam: strength 5/5 throughout and strength abnormal Psych mental status grossly normal Skin no rashes or lesions noted and no wounds MDM MDM MDM Narrative Medical decision making narrative: Patient presents with increased exertional dyspnea with history of CHF. In the differential would be CHF exacerbation versus acute coronary syndrome versus infectious etiology. PE less likely given that she is on Coumadin. I did obtain an EKG on arrival that showed a dual paced rhythm with prolonged AV conduction. CBC with differential showed a white count of 8.9 with hemoglobin 11.5 and platelet count of 210. Chemistries unremarkable. BUN was elevated at 51 and creatinine 2.38. Troponin was normal at 19 and BNP was elevated at 571. Chest x-ray showed some increased markings in the right lower lobe which could be atelectasis versus infiltrate. Clinically I do not feel she has an infiltrate. Patient was given a DuoNeb aerosol on arrival and she did have some faint wheezing. Also ordered Lasix 80 mg IV. While in the department her O2 sat did drop down to 87% on room air and she was placed on 2 L nasal cannula O2. Case will be discussed with hospitalist to evaluate patient for admission for CHF exacerbation. Her last echocardiogram was in November 2022 and showed 65% ejection fraction but they could not assess diastolic dysfunction. Lab Data Attestation: I reviewed the patient's lab results. Labs: Laboratory Results - last 24 hr 07/05/23 07/05/23 17:39 19:00 WBC 8.9 RBC 3.85 L Hgb 11.5 L Hct 36.9 L MCV 95.8 MCH 29.9 MCHC 31.2 L RDW Std Deviation 53.2 H RDW Coeff of Ashley 15.4 H Plt Count 210 MPV 10.6 Immature Gran % (Auto) 0.300 Neut % (Auto) 70.6 H Lymph % (Auto) 14.5 L [place] % (Auto) 8.8 Eos % (Auto) 5.4 H Baso % (Auto) 0.4 Absolute Neuts (auto) 6.3 Absolute Lymphs (auto) 1.30 Nucleated RBC % 0 PT 36.6 H INR 3.6 Sodium 139 Potassium 3.5 Chloride 106 Carbon Dioxide 29.0 Anion Gap 4 L BUN 51 H Creatinine 2.38 H Estim Creat Clear Calc 13.92 Est GFR (MDRD) Af Amer 25 L Est GFR (MDRD) Non-Af 21 L BUN/Creatinine Ratio 21.4 H Glucose 109 H Calcium 8.9 Magnesium 2.5 Troponin I High Sens 19 B-Natriuretic Peptide 571.0 H Urine Color Yellow Urine Clarity Clear Urine pH 6.5 Ur Specific [place] 1.010 Urine Protein 30 H Urine Glucose (UA) Normal Urine Ketones Negative Urine Occult Blood Negative Urine Nitrite Negative Urine Bilirubin Negative Urine Urobilinogen Normal Ur Leukocyte Esterase 100 H Urine RBC 0 SEEN Urine WBC 5-10 SEEN Ur Squamous Epith Cells 5-10 SEEN Ur Transition Epith Cell 0-5 SEEN Urine Bacteria 0 SEEN Urine Mucus 0 SEEN Radiography Diagnostic Testing: Clinical Impression(s) from Imaging Studies Chest X-Ray 07/05/23 17:55 IMPRESSION: Mild right basilar atelectasis or infiltrate Electronically Signed: Harjinder Fry MD at 18:18 EDT Reading Location ID and State: [facility] [place] [facility] [place] Tel , Service support , 1 view chest x-ray obtained interpreted by myself as increased markings right lower lobe without evidence of pneumothorax or effusions. Radiology felt there was mild right basilar atelectasis or infiltrate. EKG Initial EKG: Attestation: I personally reviewed and interpreted this EKG as follows: Comments: Paced rhythm rate at 63 bpm Discharge Plan Dx/Rx/DC Orders Clinical Impression: Exertional dyspnea, CHF (congestive heart failure), Chronic kidney disease Disposition Disposition: Acute Care Hospital [facility] Discharge Date/Time: 07/05/23 20:48
[2023-07-05] MEDS: Ipratropium/Albuterol Sulfate 3 ML AMPUL.NEB INHALATION (17:34)
--- NOTE | 2023-07-05 17:55 | RAD_ITS ---
STUDY: X-RAY CHEST REASON FOR EXAM: Female, 83 years old. dyspnea TECHNIQUE: AP portable COMPARISON: December 14, 2019 FINDINGS: Elevated right hemidiaphragm and mild basilar atelectasis or infiltrate.. There is no demonstrated pleural abnormality. Heart is enlarged.. Normal mediastinum and jamila. Normal visualized pulmonary arteries. Mildly calcified aortic arch and descending thoracic aorta. Pacer noted on the left with electrodes in satisfactory position Normal visualized thoracic spine. Normal visualized ribs, clavicles, and shoulders. There is no demonstrated abnormality of the visualized soft tissue structures of the upper abdomen. RAD/Chest 1 View (Portable) IMPRESSION: Mild right basilar atelectasis or infiltrate Electronically Signed: Harjinder Fry MD at 18:18 EDT ,
[2023-07-05 17:59] LABS: Absolute Neutrophil Count 6.3 X10^3/uL (2.0-7.7); Basophil# 0.04 X10^3/uL; Basophil% 0.4 % (0-1); Eosinophil# 0.48 X10^3/uL; Eosinophils% 5.4 % (0-5); Hematocrit 36.9 % (37-47); Hemoglobin 11.5 g/dL (12.0-15.0); Lymphocyte % 14.5 % (19-41); Mean Corp Hgb Conc 31.2 g/dL (32-36); Mean Corpuscular Hgb 29.9 pg (27.0-32.0); Mean Corpuscular Volume 95.8 fL (81-99); Mean Platelet Vol. 10.6 fl (6.2-12.0); Monocyte# 0.79 X10^3/uL; Monocyte% 8.8 % (0-10); NRBC Flagged by Analyzer 0 % (0-5); Neutrophil % 70.6 % (47-70); Platelet Count 210 K/mm3 (150-450); RBC Distribution Width CV 15.4 % (11.6-14.6); RBC Distribution Width SD 53.2 fl (35.1-43.9); Red Blood Count 3.85 M/mm3 (4.2-5.4); White Blood Count 8.9 K/mm3 (4.4-11.0)
[2023-07-05 18:11] LABS: Anion Gap 4 (5-15); BUN 51 mg/dL (7-18); BUN/Creat Ratio 21.4 RATIO (10-20); Calcium,Total 8.9 mg/dL (8.5-10.1); Chloride 106 mmol/L (98-107); Creatinine, Serum 2.38 mg/dL (0.55-1.02); EST Glomerular Filtration Rate 21 mL/min (>60); Est Glom Filt Rate - Afr Amer 25 mL/min (>60); Estimated Creatinine Clearance 13.92 ml/min; Glucose 109 mg/dL (74-106); International Normalized Ratio 3.6; Potassium 3.5 mmol/L (3.5-5.1); Prothrombin Time (Protime)PT. 36.6 SECONDS (11.7-14.9); Sodium Level 139 mmol/L (136-145); Troponin-I HS 19 pg/mL (3.0-54.0)
[2023-07-05 19:27] LABS: Bacteria 0 SEEN /hpf (None Seen); Mucous, Urine 0 SEEN /hpf (<or=2+); Red Blood Cells-Urine 0 SEEN /hpf (0-5)
[2023-07-05 19:46] LABS: Color, Urine Yellow (Yellow); Glucose, Dipstick Normal (Normal); Ketone-Dipstick Negative (Negative); Leukocyte Esterase-Dipstick 100 /ul (Negative); Nitrite-Dipstick Negative (Negative); Occult Blood-Urine Negative /ul (Negative); Protein-Dipstick 30 mg/dl (Negative); Urine Bilirubin Dipstick Negative (Negative); Urine Clarity Clear (Clear); Urine Urobilinogen Normal (Normal); Urine pH 6.5 (5.0 - 8.0)
[2023-07-05] MEDS: Furosemide 100 MG/10 ML Vial 80 MG IV (19:52)
--- NOTE | 2023-07-05 19:55 | PCM.HP.STD ---
HPI - General General Date of Admission: 07/05/23 Date of Service: 07/05/23 Chief Complaint: Dyspnea, weight gain, orthopnea, cough. 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 Patient denies any recent significant productive cough, fever, chills, new URI type symptoms. She does report some chronic congestion but this is been long-term. Work-up in the ED included T97.5, heart rate 59, BP 161/61, respiratory rate 22, 92% on room air initially with desaturation down to 87% on room air with improvement to 96% on 2 L nasal cannula, most recent vital signs include heart rate 66, BP 166/67, respiratory rate 21, CBC with WBC 8.9, hemoglobin 1.5, MCV 95.8, platelets 210 without marked shift, coags with INR 3.6, PT 36.6, BMP with BUN/creatinine 51/2.38, glucose 109, troponin 19, BNP 571, urinalysis unremarkable, chest x-ray with elevated right hemidiaphragm and a mild basilar atelectasis versus possible infiltrate, rapid SARS COVID and influenza antigen negative, EKG with paced rhythm with no acute evidence of ischemia. In the ED patient administered DuoNeb therapy as well as Lasix 80 mg IV x1. [facility] Medical History (Updated 07/05/23 @ 20:[address] Kayla Bowden MD) Garcia's palsy Bradycardia Cerebrovascular disease CHF (congestive heart failure) CKD (chronic kidney disease), stage IV Diabetes mellitus Dyslipidemia Essential hypertension Fatty liver Gout HLD (hyperlipidemia) HTN (hypertension) Hypothyroid Morbid obesity AJIT (obstructive sleep apnea) Osteoporosis Ovarian cyst, left Paroxysmal atrial fibrillation Sick sinus syndrome Home Medications albuterol sulfate 90 mcg/actuation aerosol inhaler 2 puff inhalation Q4H PRN PRN Wheezing 08/10/15 [History Last Taken 12/13/22] allopurinol 300 mg tablet 300 mg PO DAILY gout 08/10/15 [History Last Taken 12/13/22] folic acid 1 mg tablet 1 mg PO DAILY SUPPLEMENT 12/04/19 [History Last Taken 12/13/22] canagliflozin 100 mg tablet (Invokana) 100 mg PO DAILY HEART 04/25/21 [History Last Taken 12/13/22] cholecalciferol (vitamin D3) 25 mcg (1,000 unit) tablet 1,000 unit PO BID supplement 04/25/21 [History Last Taken 12/13/22] insulin glargine 100 unit/mL subcutaneous solution 17 unit subcut QHS blood glucose 04/25/21 [History Last Taken 12/12/22] insulin lispro 100 unit/mL subcutaneous solution 10 unit subcut TIDCM blood glucose 04/25/21 [History Last Taken 12/12/22] levothyroxine 175 mcg tablet 175 mcg PO DAILY THYROID 04/25/21 [History Last Taken 12/13/22] triamcinolone acetonide 0.5 % topical cream 1 applic topical BID RASH 04/25/21 [History Last Taken Unknown] aspirin 81 mg tablet,delayed release 81 mg PO DAILY BLOOD THINNER 06/19/22 [History Last Taken 12/13/22] lbsbjisn-ojxuoelr-zjas 8 mg-folic ac 400 mcg-vit K 10 mcg chew tablet (Centrum Chewables) 1 tab PO DAILY HEALTH MAINTENANCE 06/19/22 [History Last Taken 12/13/22] warfarin 4 mg tablet 4 mg PO MOTUWETH BLOOD THINNER 06/19/22 [History Last Taken 12/12/22] warfarin 4 mg tablet 6 mg PO SUFRSA BLOOD THINNER 06/19/22 [History Last Taken 12/10/22] flecainide 100 mg tablet 100 mg PO BID HEART #180 tabs 09/05/22 [Rx Last Taken 12/13/22] Coricidin D 2 tab PO/SL Q4H PRN Cold Symptoms 12/13/22 [History Last Taken 12/13/22 10:00] furosemide 40 mg tablet 40 mg PO DAILY #30 tabs 12/17/22 [Rx Last Taken Unknown] pravastatin 40 mg tablet 40 mg PO DAILY CHOLESTEROL #90 tabs 01/01/23 [Rx Last Taken Unknown] doxazosin 2 mg tablet (Cardura) 2 mg PO DAILY #90 tabs 04/26/23 [Rx Last Taken Unknown] albuterol sulfate 2.5 mg/3 mL (0.083 %) solution for nebulization 2.5 mg continuous nebulization Q4H PRN shortness of breath or wheezing 07/05/23 [History Last Taken Unknown] amlodipine 10 mg tablet 10 mg PO DAILY blood pressure 07/05/23 [History Last Taken Unknown] cetirizine 10 mg tablet 10 mg PO DAILY 07/05/23 [History Last Taken Unknown] metoprolol succinate 50 mg tablet,extended release 24 hr 25 mg PO DAILY 07/05/23 [History Last Taken Unknown] montelukast 10 mg tablet 10 mg PO DAILY 07/05/23 [History Last Taken Unknown] Allergy/AdvReac Type Severity Reaction Status Date / Time atorvastatin calcium AdvReac cough Verified 07/05/23 16:49 [From Lipitor] enalapril maleate AdvReac cough Verified 07/05/23 16:49 [From Vasotec] enalaprilat dihydrate AdvReac cough Verified 07/05/23 16:49 [From Vasotec] metolazone AdvReac Other Verified 07/05/23 16:55 simvastatin [From Zocor] AdvReac Other Verified 07/05/23 16:55 Family History Mother CVA (cerebral vascular accident) Hypertension Father Heart disease Myocardial infarction Son Overdose Surgical History Cardiac pacemaker in situ (10/28/18) History of appendectomy History of tubal ligation S/P laparoscopic appendectomy Social History Smoking Status: Never smoker alcohol intake: never substance use type: does not use caffeine: Yes Type: coffee Number of servings: 2 ROS ROS Narrative Admission Review of Systems: CONSTITUTIONAL: No weight loss, fever, chills, + weakness or fatigue. HEENT: Eyes: No visual loss, blurred vision, double vision or yellow sclerae. Ears, Nose, Throat: No hearing loss, sneezing, congestion, runny nose or sore throat. SKIN: No rash or itching, lesions, wounds. CARDIOVASCULAR: + Weight gain, orthopnea, edema. No chest pain, chest pressure or chest discomfort, palpitations, syncopal events. RESPIRATORY: + shortness of breath, occasional nonproductive cough. No marked wheezing, hemoptysis. GASTROINTESTINAL: No anorexia, nausea, vomiting or diarrhea, abdominal pain, melena, BRBPR. GENITOURINARY: No dysuria, frequency, urgency or retention. NEUROLOGICAL: No headache, dizziness, syncope, paralysis, ataxia, numbness or tingling in the extremities, focal weakness, change in bowel or bladder control, seizure. MUSCULOSKELETAL: + muscle, back pain, joint pain or stiffness. HEMATOLOGIC: + anemia, easy bleeding or bruising. LYMPHATICS: No enlarged nodes. No history of splenectomy. PSYCHIATRIC: No history of depression or anxiety. ENDOCRINOLOGIC: + reports of sweating. No cold or heat intolerance. No polyuria or polydipsia. ALLERGIES: +history of rhinitis. Vital Signs Vital Signs Vital Signs: 07/05/23 16:49 07/05/23 17:48 07/05/23 17:48 Temperature 97.5 F L Temperature Source Temporal Pulse Rate 59 L 68 Respiratory Rate 22 H 14 Respiratory Effort Respiratory Depth Respiratory Pattern Blood Pressure 161/61 H 137/58 H Blood Pressure Mean 94 84 Pulse Ox 92 96 96 Oxygen Delivery Method Room Air Room Air Room Air Oxygen Flow Rate (L/min) 07/05/23 17:48 07/05/23 17:35 07/05/23 19:00 Temperature Temperature Source Pulse Rate 63 Respiratory Rate 16 Respiratory Effort Short of Breath Respiratory Depth Normal Respiratory Pattern Normal Normal Blood Pressure Blood Pressure Mean Pulse Ox 87 Oxygen Delivery Method Room Air Room Air Oxygen Flow Rate (L/min) 07/05/23 19:27 Temperature Temperature Source Pulse Rate 63 Respiratory Rate 15 Respiratory Effort Respiratory Depth Respiratory Pattern Blood Pressure 151/64 H Blood Pressure Mean 93 Pulse Ox 96 Oxygen Delivery Method Nasal Cannula Oxygen Flow Rate (L/min) 2 Weight Weight: 216 lb 8 oz Body Mass Index (BMI) 39.6 Physical Exam Narrative Physical Examination: General: Awake, alert, oriented x 3 and cooperative, seated upright in the ED bed in no apparent distress, currently notes feeling improved on supplemental oxygen. Skin: Normal color, normal turgor, no icterus, no cyanosis except for bilateral lower extremity venous stasis skin changes as well as occasional staged ecchymoses. HEENT: AT/NC, EOMI, PERRLA, MMM, no carotid bruits, + JVD noted although difficult evaluation given thickened neck. Lungs: Extremely diffusely diminished, greater bases, mildly decreased effort, very distant appreciated rales, no rhonchi or wheezing. Heart: Regular rate and rhythm/paced; no gallop, rub audible. Abdomen: Soft, morbidly obese, NTTP, distant BS, difficult to discern HSM given habitus but do suspect mild distention with tympany. Extremities: No cyanosis, no clubbing, notable pedal to upper thigh pitting edema. Neurological: Patient awake, alert, oriented as noted, cognitive function intact; pupils equally reactive to light and accommodation, cranial nerves grossly normal, moving all 4 extremities, no focal deficits, strength moderately to severely globally decreased secondary to acute presentation and underlying comorbidities. Psychiatric: Affect appears fatigued, no acute evidence of depressive or anxiety feelings. Results Lab / Micro Data 07/05/23 17:39 07/05/23 17:39 Labs: Laboratory Results - last 24 hr 07/05/23 17:39: WBC 8.9, RBC 3.85 L, Hgb 11.5 L, Hct 36.9 L, MCV 95.8, MCH 29.9, MCHC 31.2 L, RDW Std Deviation 53.2 H, RDW Coeff of Ashley 15.4 H, Plt Count 210, MPV 10.6, Immature Gran % (Auto) 0.300, Neut % (Auto) 70.6 H, Lymph % (Auto) 14.5 L, Ellis % (Auto) 8.8, Eos % (Auto) 5.4 H, Baso % (Auto) 0.4, Absolute Neuts (auto) 6.3, Absolute Lymphs (auto) 1.30, Nucleated RBC % 0, PT 36.6 H, INR 3.6, Sodium 139, Potassium 3.5, Chloride 106, Carbon Dioxide 29.0, Anion Gap 4 L, BUN 51 H, Creatinine 2.38 H, Estim Creat Clear Calc 13.92, Est GFR (MDRD) Af Amer 25 L, Est GFR (MDRD) Non-Af 21 L, BUN/Creatinine Ratio 21.4 H, Glucose 109 H, Calcium 8.9, Troponin I High Sens 19, B-Natriuretic Peptide 571.0 H 07/05/23 19:00: Urine Color Yellow, Urine Clarity Clear, Urine pH 6.5, Ur Specific [place] 1.010, Urine Protein 30 H, Urine Glucose (UA) Normal, Urine Ketones Negative, Urine Occult Blood Negative, Urine Nitrite Negative, Urine Bilirubin Negative, Urine Urobilinogen Normal, Ur Leukocyte Esterase 100 H Micro: Microbiology 07/05/23 17:42 Nasal Secretion SARS-CoV-2 & FLU Antigen (Rapid) - Final Radiology Impression Chest X-Ray 07/05/23 17:55 IMPRESSION: Mild right basilar atelectasis or infiltrate Electronically Signed: Harjinder Fry MD at 18:18 EDT , Assessment & Plan Assessment/Plan (1) CHF (congestive heart failure): PLAN: Plan The patient is an 83 y/o F w/ PMHx: 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 #1. Acute Decompensated Presumed Diastolic CHF: Patient administered IV lasix in the ED, will admit to PCU, maintain on cardiac telemetry, obtain cardiac enzyme series, obtain serial EKGs, continue IV lasix diuresis, monitor I/Os, maintain on intake restriction, continue medical therapy aside from DENZEL inhibitor/ARB secondary to side effect of cough, obtain TSH and magnesium level. Most recent ECHO noted 12/13/2022 with EF 65%, mild MVI, aortic sclerosis with no stenosis, mild diffuse AV thickening, mildly enlarged LA and given it has been greater than 6 months we will repeat. Will place neck Denzel wraps with elevation. #2. PAF: We will continue Coumadin with INR trending, currently INR upon presentation 3.[address] a parameters, can 10 you home flecainide as well as home metoprolol regimen concurrently. #3. Diabetes mellitus type II: Will continue home insulin regimen, ADA diet, accu checks w/ ISS. #4. Hypertension: Continue home regimen including metoprolol, and loaded, PRN hydralazine. #5. Hyperlipidemia: Continue home statin regimen. AM FLP. #6. Hypothyroidism: Continue home synthroid regimen, TSH and FT4 pending. #7. History sick sinus syndrome: Status post pacemaker placement. #8. Chronic Kidney Disease Stage IV (by GFR trending reviewed): Admission BUN/Cr 51/2.38, baseline renal function primarily since November has been 2.2-2.4, repeat CMP in AM. #9. Morbid Obesity: Weight loss and lifestyle changes encouraged. #10. AJIT: Patient admits to history but states she was unable to tolerate Pap therapy. #11. Gout: We will continue patient on allopurinol regimen. #12. DVT prophylaxis: We will continue patient on Coumadin with INR trending with hold parameters as presentation INR 3.6 of note. #13. CODE status: Patient ALFONZO is her and her eldest son Marco A and living will is currently in place. Discussed CODE status at length including difference between FULL code, DNR-CCA and DNR-CC status. Following discussions about the differences in these status, requested Full Code status but noted she did not want to be on long-term devices and discussed that this would be when her living will and HCPOA would assist. Advanced Care Planning Face to Face Time: 16 minutes. Charges/Coding Visit Charges Inpatient E&M: 33039 Init Hosp L3 Procedures Hospitalists Procedures: 43969 Advncd Care Plan 30 Min
[2023-07-05 20:16] LABS: Squamous Epithelial Cells - UA 5-10 SEEN /hpf (5-10); Transitional Epithelial - Ur 0-5 SEEN /hpf (0-5); White Blood Cells 5-10 SEEN /hpf (0-5)
[2023-07-05 22:16] LABS: Magnesium 2.5 mg/dL (1.6-2.6)
--- NOTE | 2023-07-05 22:23 | ECHOD_ITS ---
Reason For Study: CHF Procedure This was a 2D Doppler, Color Flow transthoracic echocardiogram. Exam performed portable in patient room. Left Ventricle Normal LV size. Mild concentric left ventricular hypertrophy. The estimated ejection fraction is 55 %. Stage 3 diastolic dysfunction. Apical wall motion abnormality may reflect pacemaker activation. Right Ventricle Normal RV size. ICD or pacer leads identified within the right ventricle. Normal systolic function. Atria The left and right atria are normal. Normal right atrium. Mitral Valve There is moderate mitral annular calcification. Tricuspid Valve Normal tricuspid valve. Mild to moderate (1-2+) tricuspid valve insufficiency. Pulmonary artery systolic pressure is 50 mmHg. Aortic Valve Trisinus/trileaflet aortic valve. Mild focal aortic valve calcification. Pulmonic Valve Normal pulmonic valve. Great Vessels Normal aortic root. The pulmonary artery is normal size. Normal inferior vena cava. Pericardium/Pleural No pericardial effusion. MMode/2D Measurements & Calculations LVIDd: 4.5 cm IVSd: 1.4 cm LVOT diam: 1.9 cm LVIDs: 3.1 cm LVPWd: 1.2 cm LVOT area: 2.9 cm2 RVDd: 4.9 cm FS: 29.7 % Ao root diam: 3.4 cm LAV(MOD-bp): 49.9 ml LVAd ap4: 27.7 cm2 LAV(MOD-bp) Indexed: 23.6 ml/m2 LVLd ap4: 7.4 cm LAV(MOD-sp2): 49.6 ml EDV(MOD-sp4): 85.0 ml LAV(MOD-sp4): 46.8 ml EDV(sp4-el): 87.8 ml LVAs ap4: 15.9 cm2 LVLs ap4: 6.0 cm ESV(MOD-sp4): 34.9 ml ESV(sp4-el): 35.8 ml EF(MOD-sp4): 59.0 % EF(sp4-el): 59.2 % SV(MOD-sp4): 50.1 ml SV(sp4-el): 52.0 ml LA A4 area: 18.9 cm2 LA dimension(2D): 5.1 cm RA A4 area: 20.7 cm2 TAPSE: 2.0 cm Time Measurements MV dec time: 0.15 sec Doppler Measurements & Calculations MV E max chetan: 147.5 cm/sec Lat Peak E' Chetan: 8.6 cm/sec Med Peak E' Chetan: 6.8 cm/sec MV A max chetan: 38.2 cm/sec E/E' lat: 17.2 E/E' med: 21.8 MV E/A: 3.9 MV V2 max: 182.5 cm/sec Ao V2 max: 202.8 cm/sec LV V1 max: 134.4 cm/sec MV max P.4 mmHg Ao max P.7 mmHg LV V1 max P.3 mmHg MV V2 mean: 102.2 cm/sec Ao V2 mean: 151.8 cm/sec LV V1 mean P.4 mmHg MV mean P.2 mmHg Ao mean P.2 mmHg LV V1 mean: 99.4 cm/sec MV V2 VTI: 38.8 cm Ao V2 VTI: 40.2 cm LV V1 VTI: 23.5 cm AV (velocity ratio): 0.59 MVA(VTI): 1.8 cm2 BAILEY(I,D): 1.7 cm2 BAILEY(V,D): 1.9 cm2 SV(LVOT): 68.6 ml PA V2 max: 95.7 cm/sec TR max chetan: 340.6 cm/sec TR max P.4 mmHg ECHO/Echo Complete Interpretation Summary Normal LV size. The estimated ejection fraction is 55 %. Mild concentric left ventricular hypertrophy. Stage 3 diastolic dysfunction. Pulmonary artery systolic pressure is 50 mmHg. Ordering Physician: Kayla Bowden Referring Physician: Marcelino Moon Performed By: Griselda Posadas, MOOK, RVT
[2023-07-05] MEDS: Flecainide 100 MG Tablet PO (23:09)
[2023-07-05] MEDS: Insulin Glargine-YFGN 100 UNIT/ML Pen 17 UNIT SC (23:09)
[2023-07-05 23:21] LABS: Troponin-I HS 21 pg/mL (3.0-54.0)
[2023-07-05 23:51] LABS: Bedside Glucose 136 mg/dL (74-106)
[2023-07-06] VITALS (8 sets, daily range): BP systolic 103–129; BP diastolic 54–81; PULSE 60–90; RESP 15–20; TEMP 36.6–36.9; O2SAT 87–94; BMI 46.5
[2023-07-06 01:11] LABS: Troponin-I HS 22 pg/mL (3.0-54.0)
[2023-07-06 04:55] LABS: Absolute Lymphocyte Count 1.17 X10^3/uL (0.83-4.51); Basophil# 0.04 X10^3/uL; Basophil% 0.5 % (0-1); Eosinophil# 0.64 X10^3/uL; Eosinophils% 7.4 % (0-5); Hematocrit 34.3 % (37-47); Hemoglobin 10.6 g/dL (12.0-15.0); Lymphocyte # 1.17 X10^3/ul (0.83-4.51); Lymphocyte % 13.6 % (19-41); Mean Corp Hgb Conc 30.9 g/dL (32-36); Mean Corpuscular Hgb 29.4 pg (27.0-32.0); Mean Platelet Vol. 10.5 fl (6.2-12.0); Monocyte# 0.73 X10^3/uL; Monocyte% 8.5 % (0-10); NRBC Flagged by Analyzer 0 % (0-5); Neutrophil # 6.03 X10^3/uL (2.7-7.7); Neutrophil % 69.9 % (47-70); Platelet Count 198 K/mm3 (150-450); RBC Distribution Width CV 15.3 % (11.6-14.6); RBC Distribution Width SD 52.6 fl (35.1-43.9); Red Blood Count 3.61 M/mm3 (4.2-5.4); White Blood Count 8.6 K/mm3 (4.4-11.0)
[2023-07-06 05:04] LABS: International Normalized Ratio 3.4; Prothrombin Time (Protime)PT. 35.2 SECONDS (11.7-14.9)
[2023-07-06 05:18] LABS: AST(SGOT) 21 U/L (15-37); Alanine Aminotransfer ALT/SGPT 28 U/L (13-56); Albumin, Serum 3.1 g/dL (3.2-5.0); Alkaline Phosphatase 87 U/L (45-117); Anion Gap 4 (5-15); BUN 47 mg/dL (7-18); BUN/Creat Ratio 21.8 RATIO (10-20); Calcium,Total 8.4 mg/dL (8.5-10.1); Chloride 110 mmol/L (98-107); Cholesterol 111 mg/dL (200); Creatinine, Serum 2.16 mg/dL (0.55-1.02); EST Glomerular Filtration Rate 23 mL/min (>60); Est Glom Filt Rate - Afr Amer 28 mL/min (>60); Estimated Creatinine Clearance 15.33 ml/min; Globulin 3.2 g/dL (2.2-4.2); Glucose 107 mg/dL (74-106); High Density Lipoprotein 40 mg/dL; Potassium 3.4 mmol/L (3.5-5.1); Protein, Total 6.3 g/dL (6.4-8.2); Sodium Level 143 mmol/L (136-145); T4 Free Direct 1.24 ng/dL (0.76-1.46); Thyroid Stim Hormone (TSH) 5.87 uIU/mL (0.358-3.74); Triglycerides 91 mg/dL; Troponin-I HS 21 pg/mL (3.0-54.0); Very Low Density Lipoprotein 18 mg/dL (5-40)
[2023-07-06] MEDS: Levothyroxine 175 MCG Tablet PO (05:42)
[2023-07-06] MEDS: Budesonide Respules 0.5 MG/2 ML AMPUL.NEB. INHALATION ×2 (07:03→19:10)
[2023-07-06] MEDS: Albuterol 2.5 MG/3 ML VIAL.NEB. INHALATION (07:06)
[2023-07-06] MEDS: Insulin Lispro 100 UNIT/ML INSULN.PEN 10 UNIT SC (09:05)
[2023-07-06] MEDS: Metoprolol(XL)Succ 25 MG Tablet PO (09:05)
[2023-07-06] MEDS: Allopurinol 300 MG Tablet PO (09:05)
[2023-07-06] MEDS: Loratadine 10 MG Tablet PO (09:06)
[2023-07-06] MEDS: Doxazosin 1 MG Tablet 2 MG PO (09:06)
[2023-07-06] MEDS: Folic Acid 1 MG Tablet PO (09:06)
[2023-07-06] MEDS: Aspirin E.C. 81 MG Tablet PO (09:06)
[2023-07-06] MEDS: Montelukast 10 MG Tablet PO (09:06)
[2023-07-06] MEDS: Furosemide 40 MG/4 ML Vial IV ×2 (09:07→17:01)
[2023-07-06] MEDS: amLODIPine 10 MG Tablet PO (09:07)
[2023-07-06] MEDS: Pravastatin 40 MG Tablet PO (09:07)
--- NOTE | 2023-07-06 10:50 | CASEMGMT ---
Addendum entered by Shelly Castle 07/06/23 11:17: Pt lives in a ranch-style home w/2 steps to enter. Denies difficulty w/stairs to enter home and states does not have to go to the basement any longer, as washer/dryer are on main floor now. 16-yr-old GS stays w/them part of the time. Reports good family support. Original Note: RN?CM?POWDER BLENDER?CM?to room to meet with patient for initial transition planning/care coordination?assessment.?RN?CM?introduced self and role at [facility].? Pt voices understanding and consents to?assessment?at this time.? Pt resting in bed in no distress at this time.? Pt is A/O at this time and answers all questions appropriately.?? Care providers, pharmacy, and demographics verified/updated at this time. PCP: Dr Moon Specialists: HARRIS/cardiology, Dr Shipman/pulmonology, Dr Hendrickson/nephrology [facility]erred [facility]: [facility] Prescription Benefit:?Yes Living Will/HPOA:?Has LW and it is on file @ [facility]. Pt states she also has a HCPOA, who is her . She states her oldest son, Marco A, is also listed, and her youngest son, Chris. LNOK: , Jey. Pt has 8 adult children Living Arrangements: Lives w/her and son, Taran, lives with them. has CHF and macular degeneration and pt over-sees his care, but he is indep w/ADL's. Pt indep w/her own ADL's and manages her own medications. Son, Chris lives nearby (4 houses down). Transportation:?Pt states drives self and states no transportation concerns at this time.? Family will take her home @ discharge. DME: ?States has the following DME:?shower chair, pulse ox, functioning glucometer w/supplies. Pt does not have home O2. She states, should she qualify for O2 @ discharg, [employer] is preferable DME co, as this is who her has O2 through. She is aware of home O2 set-up process. Pt states no need for further DME at this time.? HHC/SNF: No hx of either. Denies need for HHC. Discussed Pt Link and she is agreeable to referral. Order placed. Pt wishes to return home and states has no concerns with going home at time of discharge.? CM?to follow for home oxygen needs and any further discharge planning/needs.? Pt voices no further concerns/needs at this time.? Advised pt to ask for?CM?if any further questions/concerns/needs arise.? Voices understanding. PLAN:??Home w/Pt Link. Follow for possible Home O2 Green sheet placed on chart. Johana MARTINEZN?RN?CM
--- NOTE | 2023-07-06 12:07 | NURSING ---
Approached pt to konstantin the patient link program and she would like to think about it. Will plan on meeting with patient again later this afternoon.
[2023-07-06 12:19] LABS: Bedside Glucose 64 mg/dL (74-106)
[2023-07-06] MEDS: Flecainide 100 MG Tablet PO ×2 (12:29→23:07)
[2023-07-06 12:49] LABS: Bedside Glucose 126 mg/dL (74-106)
[2023-07-06 12:50] LABS: Bedside Glucose 75 mg/dL (74-106)
[2023-07-06] MEDS: Flu Vacc QS2023-24(65YR UP)/PF 240 MCG/0.7 ML Syringe IM (14:10)
[2023-07-06 16:43] LABS: Bedside Glucose 108 mg/dL (74-106)
[2023-07-06] MEDS: 0.9% Saline Lock 10 ML Syringe IV ×2 (17:01→18:42)
--- NOTE | 2023-07-06 17:32 | PCM.PN.HOSP ---
Reason for Visit Reason for Visit: Diagnoses Heart failure, unspecified (07/05/23) Subjective Subjective Patient was seen and examined today, she still is on supplemental oxygen at 2 L/min. Patient's echocardiogram today showed a normal EF, I am concerned that the patient is not diuresing enough at this time, I discussed this with her and told her that I would need to increase her IV diuresis. Objective Data Objective Data Vital Signs: Vital Signs Temp Pulse Resp BP Pulse Ox O2 Del Method O2 Flow Rate 98.4 F 63 15 103/54 L 94 Room Air 2 07/06/23 14:21 07/06/23 14:21 07/06/23 14:21 07/06/23 14:21 07/06/23 14:21 07/06/23 14:21 07/06/23 14:21 Oxygen Flow Rate (L/min) 2 Oxygen Delivery Method Room Air Weight: 115.4 kg Body Mass Index (BMI) 46.5 Intake & Output: Intake and Output for Last 24 Hours 07/04/23 07/05/23 07/06/23 23:59 23:59 23:59 Output Total 800 / 800 Balance -800 / -800 Lab / Micro Data 07/06/23 04:44 07/06/23 04:44 Labs: Laboratory Results - last 24 hr 07/05/23 17:39: WBC 8.9, RBC 3.85 L, Hgb 11.5 L, Hct 36.9 L, MCV 95.8, MCH 29.9, MCHC 31.2 L, RDW Std Deviation 53.2 H, RDW Coeff of Ashley 15.4 H, Plt Count 210, MPV 10.6, Immature Gran % (Auto) 0.300, Neut % (Auto) 70.6 H, Lymph % (Auto) 14.5 L, [place] % (Auto) 8.8, Eos % (Auto) 5.4 H, Baso % (Auto) 0.4, Absolute Neuts (auto) 6.3, Absolute Lymphs (auto) 1.30, Nucleated RBC % 0, PT 36.6 H, INR 3.6, Sodium 139, Potassium 3.5, Chloride 106, Carbon Dioxide 29.0, Anion Gap 4 L, BUN 51 H, Creatinine 2.38 H, Estim Creat Clear Calc 13.92, Est GFR (MDRD) Af Amer 25 L, Est GFR (MDRD) Non-Af 21 L, BUN/Creatinine Ratio 21.4 H, Glucose 109 H, Calcium 8.9, Magnesium 2.5, Troponin I High Sens 19, B-Natriuretic Peptide 571.0 H 07/05/23 19:00: Urine Color Yellow, Urine Clarity Clear, Urine pH 6.5, Ur Specific [place] 1.010, Urine Protein 30 H, Urine Glucose (UA) Normal, Urine Ketones Negative, Urine Occult Blood Negative, Urine Nitrite Negative, Urine Bilirubin Negative, Urine Urobilinogen Normal, Ur Leukocyte Esterase 100 H, Urine RBC 0 SEEN, Urine WBC 5-10 SEEN, Ur Squamous Epith Cells 5-10 SEEN, Ur Transition Epith Cell 0-5 SEEN, Urine Bacteria 0 SEEN, Urine Mucus 0 SEEN 07/05/23 22:52: Troponin I High Sens 21 07/05/23 23:07: POC Glucose 136 H 07/06/23 00:40: Troponin I High Sens 22 07/06/23 04:44: WBC 8.6, RBC 3.61 L, Hgb 10.6 L, Hct 34.3 L, MCV 95.0, MCH 29.4, MCHC 30.9 L, RDW Std Deviation 52.6 H, RDW Coeff of Ashley 15.3 H, Plt Count 198, MPV 10.5, Immature Gran % (Auto) 0.100, Neut % (Auto) 69.9, Lymph % (Auto) 13.6 L, [place] % (Auto) 8.5, Eos % (Auto) 7.4 H, Baso % (Auto) 0.5, Absolute Neuts (auto) 6.0, Absolute Lymphs (auto) 1.17, Nucleated RBC % 0, PT 35.2 H, INR 3.4, Sodium 143, Potassium 3.4 L, Chloride 110 H, Carbon Dioxide 29.0, Anion Gap 4 L, BUN 47 H, Creatinine 2.16 H, Estim Creat Clear Calc 15.33, Est GFR (MDRD) Af Amer 28 L, Est GFR (MDRD) Non-Af 23 L, BUN/Creatinine Ratio 21.8 H, Glucose 107 H, Calcium 8.4 L, Total Bilirubin 0.40, AST 21, ALT 28, Alkaline Phosphatase 87, Troponin I High Sens 21, Total Protein 6.3 L, Albumin 3.1 L, Globulin 3.2, Albumin/Globulin Ratio 1.0, Triglycerides 91, Cholesterol 111, LDL Cholesterol 53, VLDL Cholesterol 18, HDL Cholesterol 40, TSH 5.87 H, Free T4 1.24 07/06/23 09:03: POC Glucose 126 H 07/06/23 11:06: POC Glucose 64 L 07/06/23 12:07: POC Glucose 75 07/06/23 16:14: POC Glucose 108 H Micro: Microbiology 07/05/23 17:42 Nasal Secretion SARS-CoV-2 & FLU Antigen (Rapid) - Final Radiography Diagnostic Testing: Radiology Impression Chest X-Ray 07/05/23 17:55 IMPRESSION: Mild right basilar atelectasis or infiltrate Electronically Signed: Harjinder Fry MD at 18:18 EDT , Echocardiogram 07/05/23 22:23 Interpretation Summary Normal LV size. The estimated ejection fraction is 55 %. Mild concentric left ventricular hypertrophy. Stage 3 diastolic dysfunction. Pulmonary artery systolic pressure is 50 mmHg. Ordering Physician: Kayla Bowden Referring Physician: Marcelino Moon Performed By: Griselda Posadas, TAICS, RVT Physical Exam Const alert, oriented x3 and no apparent distress Constitutional Narrative: Patient is morbidly obese General Appearance: cooperative, well kempt and well developed Orientation / Consciousness: awake, oriented to person, oriented to place and oriented to time HEENT normocephalic, head/scalp atraumatic and moist oral mucous membranes Eyes PERRL, EOMs intact bilaterally and conjunctivae normal Neck supple, no JVD, thyroid normal and no carotid bruits General: trachea midline Resp normal respiratory effort, no retractions and no use of accessory muscles Resp Narrative: Patient has inspiratory rales at the bases bilaterally along with some expiratory wheezing scattered over both lungs Auscultation: rales bilateral lower and wheezes scattered wheezes; Negative for rhonchi Cardio regular rate, regular rhythm, S1 normal heart sound, S2 normal heart sound, no murmurs, no rub and no gallops Cardio Narrative: Patient has a paced rhythm GI normal to inspection, nondistended, normoactive bowel sounds, soft to palpation, non-tender and non-distended Neuro oriented x3, CN's II-XII intact bilaterally, moves all extremities, no focal motor deficits and no sensory deficits noted Sensorium / Orientation: awake and alert Speech: speech normal Psych affect normal Assessment & Plan Assessment/Plan (1) CHF (congestive heart failure): PLAN: Plan 1. Acute on chronic diastolic congestive heart failure-I have elected to increase the patient's Lasix to 60 mg IV twice daily #2 hypoxia secondary #1-patient is currently on 2 L via nasal cannula, pulse ox will be monitored #3 chronic kidney disease stage IV-complicates care, medical course, recovery, and prognosis #4 Hypokalemia-patient will be given supplemental potassium, BMP will be monitored #5 paroxysmal atrial fibrillation-patient is currently on warfarin, metoprolol, and flecainide #6 morbid obesity-complicates care, medical course, recovery, and prognosis Total clinical time spent by myself addressing the patient's medical issues, reviewing all of her data, and collaborating with the patient's care team: 35 minutes Charges/Coding Visit Charges Inpatient E&M: 22276 Subs Hosp L2
[2023-07-06] MEDS: Potassium Chloride Oral Tablet 20 MEQ PO (18:42)
[2023-07-06] MEDS: Furosemide 20 MG/2 ML VIAL IV (18:43)
[2023-07-06] MEDS: Furosemide 40 MG/4 ML Vial 60 MG IV (18:50)
--- NOTE | 2023-07-06 23:00 | NURSING ---
Decision made to insert vásquez catheter for accurate I&O since unable to obtain. 16Fr catheter inserted, pt tolerated insertion well. 300ml of urine in vásquez bag once insertion completed.
[2023-07-06] MEDS: Insulin Glargine-YFGN 100 UNIT/ML Pen 17 UNIT SC (23:08)
[2023-07-06 23:36] LABS: Bedside Glucose 136 mg/dL (74-106)
[2023-07-07] VITALS (8 sets, daily range): BP systolic 117–129; BP diastolic 62–74; PULSE 63–84; RESP 16–19; TEMP 36.6–36.9; O2SAT 93–95; BMI 46.0
[2023-07-07] MEDS: Levothyroxine 175 MCG Tablet PO (05:53)
[2023-07-07] MEDS: Budesonide Respules 0.5 MG/2 ML AMPUL.NEB. INHALATION ×2 (07:04→19:07)
[2023-07-07 08:24] LABS: Bedside Glucose 76 mg/dL (74-106)
[2023-07-07] MEDS: amLODIPine 10 MG Tablet PO (10:12)
[2023-07-07] MEDS: Doxazosin 1 MG Tablet 2 MG PO (10:12)
[2023-07-07] MEDS: Aspirin E.C. 81 MG Tablet PO (10:12)
[2023-07-07] MEDS: Flecainide 100 MG Tablet PO ×2 (10:12→21:14)
[2023-07-07] MEDS: Folic Acid 1 MG Tablet PO (10:13)
[2023-07-07] MEDS: Empagliflozin 10 MG Tablet PO (10:13)
[2023-07-07] MEDS: Pravastatin 40 MG Tablet PO (10:13)
[2023-07-07] MEDS: Montelukast 10 MG Tablet PO (10:13)
[2023-07-07] MEDS: Allopurinol 300 MG Tablet PO (10:14)
[2023-07-07] MEDS: Metoprolol(XL)Succ 25 MG Tablet PO (10:14)
[2023-07-07] MEDS: Potassium Chloride Oral Tablet 20 MEQ PO ×2 (10:19→16:30)
[2023-07-07 12:27] LABS: Bedside Glucose 116 mg/dL (74-106)
[2023-07-07] MEDS: Furosemide 500 MG in Empty Viaflex 50 mL 1 EACH CONT INF (14:26)
--- NOTE | 2023-07-07 14:51 | PCM.PN.HOSP ---
Reason for Visit Reason for Visit: Diagnoses Heart failure, unspecified (07/05/23) Subjective Subjective Patient was seen and examined today, she is still requiring 2 L of supplemental oxygen at rest, 80 Morales catheter was inserted yesterday to monitor urine output. I talked briefly with her son who was in the room at the time my examination today. Objective Data Objective Data Vital Signs: Vital Signs Temp Pulse Resp BP Pulse Ox O2 Del Method O2 Flow Rate 98 F 82 18 129/66 H 95 Nasal Cannula 2 07/07/23 10:08 07/07/23 10:14 07/07/23 10:08 07/07/23 10:08 07/07/23 13:49 07/07/23 10:08 07/07/23 13:49 Oxygen Flow Rate (L/min) 2 Oxygen Delivery Method Nasal Cannula Weight: 114.1 kg Body Mass Index (BMI) 46.0 Intake & Output: Intake and Output for Last 24 Hours 07/05/23 07/06/23 07/07/23 23:59 23:59 23:59 Intake Total 450 / 450 Output Total 1800 / 1800 1250 / 1250 Balance -1800 / -1800 -800 / -800 Lab / Micro Data 07/06/23 04:44 07/06/23 04:44 Labs: Laboratory Results - last 24 hr 07/06/23 16:14: POC Glucose 108 H 07/06/23 23:07: POC Glucose 136 H 07/07/23 08:06: POC Glucose 76 07/07/23 12:06: POC Glucose 116 H Micro: Microbiology 07/05/23 17:42 Nasal Secretion SARS-CoV-2 & FLU Antigen (Rapid) - Final Radiography Diagnostic Testing: Radiology Impression Echocardiogram 07/05/23 22:23 Interpretation Summary Normal LV size. The estimated ejection fraction is 55 %. Mild concentric left ventricular hypertrophy. Stage 3 diastolic dysfunction. Pulmonary artery systolic pressure is 50 mmHg. Ordering Physician: Kayla Bowden Referring Physician: Marcelino Moon Performed By: Griselda Posadas, RDCS, RVT Physical Exam Narrative alert, oriented x3 and no apparent distress Constitutional Narrative: Patient is morbidly obese General Appearance: cooperative, well kempt and well developed Orientation / Consciousness: awake, oriented to person, oriented to place and oriented to time HEENT normocephalic, head/scalp atraumatic and moist oral mucous membranes Eyes PERRL, EOMs intact bilaterally and conjunctivae normal Neck supple, no JVD, thyroid normal and no carotid bruits General: trachea midline Resp normal respiratory effort, no retractions and no use of accessory muscles Resp Narrative: Patient has inspiratory rales at the bases bilaterally along with some expiratory wheezing scattered over both lungs Auscultation: rales bilateral lower and wheezes scattered wheezes; Negative for rhonchi Cardio regular rate, regular rhythm, S1 normal heart sound, S2 normal heart sound, no murmurs, no rub and no gallops Cardio Narrative: Patient has a paced rhythm GI normal to inspection, nondistended, normoactive bowel sounds, soft to palpation, non-tender and non-distended Neuro oriented x3, CN's II-XII intact bilaterally, moves all extremities, no focal motor deficits and no sensory deficits noted Sensorium / Orientation: awake and alert Speech: speech normal Psych affect normal Assessment & Plan Assessment/Plan (1) CHF (congestive heart failure): PLAN: Plan 1. Acute on chronic diastolic congestive heart failure-will be placed on a Lasix continuous infusion at 10 mg/h #2 hypoxia secondary #1-patient is currently on 2 L via nasal cannula, pulse ox will be monitored #3 chronic kidney disease stage IV-complicates care, medical course, recovery, and prognosis #4 Hypokalemia-patient will be given supplemental potassium, BMP will be monitored #5 paroxysmal atrial fibrillation-patient is currently on warfarin, metoprolol, and flecainide #6 morbid obesity-complicates care, medical course, recovery, and prognosis Total clinical time spent by myself addressing the patient's medical issues, reviewing all of her data, and collaborating with the patient's care team: 25 minutes Charges/Coding Visit Charges Inpatient E&M: 65177 Subs Hosp L1
[2023-07-07 16:53] LABS: Bedside Glucose 119 mg/dL (74-106)
[2023-07-07] MEDS: Insulin Glargine-YFGN 100 UNIT/ML Pen 17 UNIT SC (21:14)
[2023-07-07 21:34] LABS: Bedside Glucose 134 mg/dL (74-106)
[2023-07-08] VITALS (12 sets, daily range): BP systolic 119–148; BP diastolic 50–62; PULSE 60–81; RESP 16–20; TEMP 36.6–37.1; O2SAT 85–97; BMI 46.1
--- NOTE | 2023-07-08 02:09 | PCM.HOSP.N ---
Hospitalist Note Patient per RN with urine improving in appearance, had onset hematuria after PT/OT, suspected vásquez being pulled on anticoagulation. Currently given improving appearance of urine will continue to monitor. Will add labs for AM and INR.
[2023-07-08] MEDS: Levothyroxine 175 MCG Tablet PO (05:18)
[2023-07-08 06:05] LABS: Absolute Lymphocyte Count 1.78 X10^3/uL (0.83-4.51); Absolute Neutrophil Count 6.5 X10^3/uL (2.0-7.7); Basophil# 0.05 X10^3/uL; Basophil% 0.5 % (0-1); Eosinophil# 0.71 X10^3/uL; Eosinophils% 7.1 % (0-5); Hematocrit 37.1 % (37-47); Hemoglobin 11.1 g/dL (12.0-15.0); Lymphocyte # 1.78 X10^3/ul (0.83-4.51); Lymphocyte % 17.8 % (19-41); Mean Corp Hgb Conc 29.9 g/dL (32-36); Mean Corpuscular Hgb 29.2 pg (27.0-32.0); Mean Corpuscular Volume 97.6 fL (81-99); Mean Platelet Vol. 11.1 fl (6.2-12.0); Monocyte# 0.93 X10^3/uL; Monocyte% 9.3 % (0-10); NRBC Flagged by Analyzer 0 % (0-5); Neutrophil # 6.51 X10^3/uL (2.7-7.7); Neutrophil % 64.9 % (47-70); Platelet Count 223 K/mm3 (150-450); RBC Distribution Width CV 15.1 % (11.6-14.6); RBC Distribution Width SD 53.5 fl (35.1-43.9)
[2023-07-08 06:26] LABS: Bedside Glucose 91 mg/dL (74-106)
[2023-07-08 07:26] LABS: International Normalized Ratio 2.6; Prothrombin Time (Protime)PT. 28.2 SECONDS (11.7-14.9)
[2023-07-08 07:36] LABS: ALB/GLOB Ratio 0.9 RATIO (0.9-2.4); AST(SGOT) 18 U/L (15-37); Alanine Aminotransfer ALT/SGPT 26 U/L (13-56); Albumin, Serum 3.1 g/dL (3.2-5.0); Alkaline Phosphatase 93 U/L (45-117); Anion Gap 5 (5-15); BUN 52 mg/dL (7-18); BUN/Creat Ratio 22.2 RATIO (10-20); Calcium,Total 8.2 mg/dL (8.5-10.1); Chloride 106 mmol/L (98-107); Creatinine, Serum 2.34 mg/dL (0.55-1.02); EST Glomerular Filtration Rate 21 mL/min (>60); Est Glom Filt Rate - Afr Amer 25 mL/min (>60); Estimated Creatinine Clearance 14.15 ml/min; Globulin 3.3 g/dL (2.2-4.2); Glucose 90 mg/dL (74-106); Potassium 4.2 mmol/L (3.5-5.1); Protein, Total 6.4 g/dL (6.4-8.2); Sodium Level 139 mmol/L (136-145)
[2023-07-08] MEDS: Metoprolol(XL)Succ 25 MG Tablet PO (08:08)
[2023-07-08] MEDS: Montelukast 10 MG Tablet PO (08:08)
[2023-07-08] MEDS: Folic Acid 1 MG Tablet PO (08:08)
[2023-07-08] MEDS: Pravastatin 40 MG Tablet PO (08:08)
[2023-07-08] MEDS: Flecainide 100 MG Tablet PO ×2 (08:09→21:11)
[2023-07-08] MEDS: Doxazosin 1 MG Tablet 2 MG PO (08:10)
[2023-07-08] MEDS: amLODIPine 10 MG Tablet PO (08:10)
[2023-07-08] MEDS: Aspirin E.C. 81 MG Tablet PO (08:10)
[2023-07-08] MEDS: Empagliflozin 10 MG Tablet PO (08:10)
[2023-07-08] MEDS: Allopurinol 300 MG Tablet PO (08:11)
[2023-07-08] MEDS: Potassium Chloride Oral Tablet 20 MEQ PO ×2 (08:16→16:09)
[2023-07-08] MEDS: Budesonide Respules 0.5 MG/2 ML AMPUL.NEB. INHALATION ×2 (09:05→19:11)
[2023-07-08] MEDS: Bisacodyl 5 MG Tablet 10 MG PO (11:56)
[2023-07-08] MEDS: Insulin Lispro 100 UNIT/ML INSULN.PEN SC ×2 (11:57→21:11)
[2023-07-08] MEDS: Insulin Lispro 100 UNIT/ML INSULN.PEN 10 UNIT SC (11:57)
[2023-07-08 12:18] LABS: Bedside Glucose 152 mg/dL (74-106)
--- NOTE | 2023-07-08 16:10 | PCM.PN.HOSP ---
Reason for Visit Reason for Visit: Diagnoses Heart failure, unspecified (07/05/23) Subjective Subjective Patient was seen and examined today, she is still requiring 2 L of oxygen via nasal cannula. Patient has no complaints of any increased shortness of breath or chest discomfort Objective Data Objective Data Vital Signs: Vital Signs Temp Pulse Resp BP Pulse Ox O2 Del Method O2 Flow Rate 98.8 F 60 18 131/52 H 94 Nasal Cannula 2 07/08/23 15:58 07/08/23 15:58 07/08/23 15:58 07/08/23 15:58 07/08/23 15:58 07/08/23 15:58 07/08/23 15:58 Oxygen Flow Rate (L/min) 2 Oxygen Delivery Method Nasal Cannula Weight: 114.5 kg Body Mass Index (BMI) 46.1 Intake & Output: Intake and Output for Last 24 Hours 07/06/23 07/07/23 07/08/23 23:59 23:59 23:59 Intake Total 920 / 920 880 / 880 Output Total 1800 / 1800 2350 / 2350 1725 / 1725 Balance -1800 / -1800 -1430 / -1430 -845 / -845 Lab / Micro Data 07/08/23 05:32 07/08/23 05:32 Labs: Laboratory Results - last 24 hr 07/07/23 16:27: POC Glucose 119 H 07/07/23 21:11: POC Glucose 134 H 07/08/23 05:32: WBC 10.0, RBC 3.80 L, Hgb 11.1 L, Hct 37.1, MCV 97.6, MCH 29.2, MCHC 29.9 L, RDW Std Deviation 53.5 H, RDW Coeff of Ashley 15.1 H, Plt Count 223, MPV 11.1, Immature Gran % (Auto) 0.400, Neut % (Auto) 64.9, Lymph % (Auto) 17.8 L, [place] % (Auto) 9.3, Eos % (Auto) 7.1 H, Baso % (Auto) 0.5, Absolute Neuts (auto) 6.5, Absolute Lymphs (auto) 1.78, Nucleated RBC % 0, PT 28.2 H, INR 2.6, Sodium 139, Potassium 4.2, Chloride 106, Carbon Dioxide 28.0, Anion Gap 5, BUN 52 H, Creatinine 2.34 H, Estim Creat Clear Calc 14.15, Est GFR (MDRD) Af Amer 25 L, Est GFR (MDRD) Non-Af 21 L, BUN/Creatinine Ratio 22.2 H, Glucose 90, Calcium 8.2 L, Total Bilirubin 0.40, AST 18, ALT 26, Alkaline Phosphatase 93, Total Protein 6.4, Albumin 3.1 L, Globulin 3.3, Albumin/Globulin Ratio 0.9 07/08/23 06:04: POC Glucose 91 07/08/23 11:55: POC Glucose 152 H Micro: Microbiology 07/05/23 17:42 Nasal Secretion SARS-CoV-2 & FLU Antigen (Rapid) - Final Physical Exam Narrative alert, oriented x3 and no apparent distress Constitutional Narrative: Patient is morbidly obese General Appearance: cooperative, well kempt and well developed Orientation / Consciousness: awake, oriented to person, oriented to place and oriented to time HEENT normocephalic, head/scalp atraumatic and moist oral mucous membranes Eyes PERRL, EOMs intact bilaterally and conjunctivae normal Neck supple, no JVD, thyroid normal and no carotid bruits General: trachea midline Resp normal respiratory effort, no retractions and no use of accessory muscles Resp Narrative: Patient has inspiratory rales at the bases bilaterally along with some expiratory wheezing scattered over both lungs Auscultation: rales bilateral lower and wheezes scattered wheezes; Negative for rhonchi Cardio regular rate, regular rhythm, S1 normal heart sound, S2 normal heart sound, no murmurs, no rub and no gallops Cardio Narrative: Patient has a paced rhythm GI normal to inspection, nondistended, normoactive bowel sounds, soft to palpation, non-tender and non-distended Neuro oriented x3, CN's II-XII intact bilaterally, moves all extremities, no focal motor deficits and no sensory deficits noted Sensorium / Orientation: awake and alert Speech: speech normal Psych affect normal Assessment & Plan Assessment/Plan (1) CHF (congestive heart failure): PLAN: Plan 1. Acute on chronic diastolic congestive heart failure-patient continues on Lasix drip at 10 mg/h #2 hypoxia secondary #1-patient is currently on 2 L via nasal cannula, pulse ox will be monitored #3 chronic kidney disease stage IV-complicates care, medical course, recovery, and prognosis #4 Hypokalemia-patient will be given supplemental potassium, BMP will be monitored #5 paroxysmal atrial fibrillation-patient is currently on warfarin, metoprolol, and flecainide #6 morbid obesity-complicates care, medical course, recovery, and prognosis Total clinical time spent by myself addressing the patient's medical issues, reviewing all of her data, and collaborating with the patient's care team: 25 minutes Charges/Coding Visit Charges Inpatient E&M: 56899 Subs Hosp L1
[2023-07-08 16:49] LABS: Bedside Glucose 134 mg/dL (74-106)
[2023-07-08] MEDS: Furosemide 500 MG in Empty Viaflex 50 mL 1 EACH CONT INF (17:32)
[2023-07-08] MEDS: Insulin Glargine-YFGN 100 UNIT/ML Pen 17 UNIT SC (21:11)
[2023-07-08 21:31] LABS: Bedside Glucose 156 mg/dL (74-106)
[2023-07-09] VITALS (9 sets, daily range): BP systolic 138–149; BP diastolic 49–56; PULSE 56–70; RESP 16–18; TEMP 36.6–36.9; O2SAT 88–95; BMI 37.5
[2023-07-09] MEDS: Levothyroxine 175 MCG Tablet PO (05:21)
[2023-07-09] MEDS: Budesonide Respules 0.5 MG/2 ML AMPUL.NEB. INHALATION (06:40)
[2023-07-09 06:42] LABS: Anion Gap 4 (5-15); BUN 60 mg/dL (7-18); BUN/Creat Ratio 26.1 RATIO (10-20); Calcium,Total 8.1 mg/dL (8.5-10.1); Chloride 103 mmol/L (98-107); EST Glomerular Filtration Rate 21 mL/min (>60); Est Glom Filt Rate - Afr Amer 26 mL/min (>60); Glucose 89 mg/dL (74-106); Potassium 4.2 mmol/L (3.5-5.1); Sodium Level 138 mmol/L (136-145)
[2023-07-09] MEDS: Folic Acid 1 MG Tablet PO (08:05)
[2023-07-09] MEDS: amLODIPine 10 MG Tablet PO (08:06)
[2023-07-09] MEDS: Montelukast 10 MG Tablet PO (08:06)
[2023-07-09] MEDS: Pravastatin 40 MG Tablet PO (08:06)
[2023-07-09] MEDS: Flecainide 100 MG Tablet PO (08:07)
[2023-07-09] MEDS: Doxazosin 1 MG Tablet 2 MG PO (08:07)
[2023-07-09] MEDS: Aspirin E.C. 81 MG Tablet PO (08:07)
[2023-07-09] MEDS: Empagliflozin 10 MG Tablet PO (08:07)
[2023-07-09] MEDS: Allopurinol 300 MG Tablet PO (08:09)
[2023-07-09] MEDS: Potassium Chloride Oral Tablet 20 MEQ PO (08:27)
[2023-07-09] MEDS: Psyllium 1 PACKET PO (08:27)
[2023-07-09 08:56] LABS: Bedside Glucose 74 mg/dL (74-106)
[2023-07-09] MEDS: Insulin Lispro 100 UNIT/ML INSULN.PEN SC (11:41)
[2023-07-09 11:46] LABS: Bedside Glucose 162 mg/dL (74-106)
--- NOTE | 2023-07-09 13:01 | PCM.HOSP.N ---
Hospitalist Note Patient requires oxygen at 3 L/min via nasal cannula on ambulation to maintain her pulse ox above 88%, she requires no oxygen at rest. Patient is ambulatory in the home and community and requires home oxygen with portability
--- NOTE | 2023-07-09 13:04 | PCM.DC ---
Discharge Instructions Diet Discharge Diet: 1800 Calorie Control Diet Activity Discharge Activity: Return to Normal Activity Weight Bearing Status: Full weight bearing Follow Up Care Test Results: Test results from this visit will be discussed in further detail at your follow-up appointment, if applicable. Discharge Plan Admission Admit Date/Time: 07/05/23 20:03 Primary Reason for Your Visit: Congestive heart failure with normal ejection fraction- acute on chronic Attending Provider: Santo Warren Primary Care Provider: Marcelino Moon Consulting Providers: Kayla Bowden Instructions Additional Instructions / Restrictions: Use 3 L of oxygen by nasal cannula when ambulating or sleep Discharge Orders/Prescriptions Prescriptions: New potassium chloride [Klor-Con M20] 20 mEq Tablet,Er Particles/Crystals 20 meq PO BIDCM Qty: 60 0RF furosemide [Lasix] 40 mg tablet 80 mg PO BID Qty: 120 0RF Continued folic acid 1 mg tablet 1 mg PO DAILY Invokana 100 mg tablet 100 mg PO DAILY Hold Instructions: Hold for 1 week. 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 insulin lispro 100 unit/mL solution 10 unit subcut TIDCM insulin glargine 100 unit/mL solution 17 unit subcut QHS levothyroxine 175 mcg tablet 175 mcg PO DAILY triamcinolone acetonide 0.5 % cream 1 applic topical BID allopurinol 300 MG tablet 300 mg PO DAILY albuterol sulfate 1 INHALER inhaler 2 puff inhalation Q4H PRN PRN (Reason: Wheezing) cholecalciferol (vitamin D3) 25 mcg (1,000 unit) tablet 1,000 unit PO BID aspirin 81 mg Tablet,Delayed Release (Dr/Ec) 81 mg PO DAILY warfarin 4 mg tablet 6 mg PO SUFR Protocol: Dose Management Condition: Sunday Dose/Route: 4 mg Instruction: 1 x 4 mg tablet Condition: Sunday Dose/Route: 4 mg Instruction: 1 x 4 mg tablet Condition: Sunday Dose/Route: 4 mg Instruction: 1 x 4 mg tablet Condition: Sunday Dose/Route: 6 mg Instruction: 1.5 x 4 mg tablets Condition: Dose/Route: 6 mg Instruction: 1.5 x 4 mg tablets Condition: Sunday Dose/Route: 4 mg Instruction: 1 x 4 mg tablet Condition: Sunday Dose/Route: 4 mg Instruction: 1 x 4 mg tablet Protocol Text: Adjustment Start Date: Sunday05/16/23 INR Value: 2.1 INR Date: 05/16/23 Recheck Date: 06/13/23 Centrum Chewables 8 mg-400 mcg- 10 mcg Tablet,Chewable 1 tab PO DAILY warfarin 4 mg tablet 4 mg PO MOTUWETH Protocol: Dose Management Condition: Sunday Dose/Route: 4 mg Instruction: 1 x 4 mg tablet Condition: Sunday Dose/Route: 4 mg Instruction: 1 x 4 mg tablet Condition: Sunday Dose/Route: 4 mg Instruction: 1 x 4 mg tablet Condition: Sunday Dose/Route: 6 mg Instruction: 1.5 x 4 mg tablets Condition: Dose/Route: 6 mg Instruction: 1.5 x 4 mg tablets Condition: Sunday Dose/Route: 4 mg Instruction: 1 x 4 mg tablet Condition: Sunday Dose/Route: 4 mg Instruction: 1 x 4 mg tablet Protocol Text: Adjustment Start Date: Sunday05/16/23 INR Value: 2.1 INR Date: 05/16/23 Recheck Date: 06/13/23 Coricidin D 2 tab PO/SL Q4H PRN (Reason: Cold Symptoms) albuterol sulfate 2.5 mg /3 mL (0.083 %) solution for nebulization 2.5 mg continuous nebulization Q4H PRN (Reason: shortness of breath or wheezing) Patient Comments: inhale contents of 1 vial ( 3 milliliters ) in nebulizer by mouth... (REFER TO PRESCRIPTION NOTES). metoprolol succinate 50 mg tablet extended release 24 hr 25 mg PO DAILY amlodipine 10 mg tablet 10 mg PO DAILY cetirizine 10 mg tablet 10 mg PO DAILY Patient Comments: take 1 tablet by mouth once daily montelukast 10 mg tablet 10 mg PO DAILY flecainide 100 mg tablet 100 mg PO BID Qty: 180 3RF pravastatin 40 mg tablet 40 mg PO DAILY Qty: 90 3RF doxazosin [Cardura] 2 mg tablet 2 mg PO DAILY Qty: 90 3RF Discontinued furosemide 40 mg tablet 40 mg PO DAILY Qty: 30 1RF Referrals / Follow Up: Darren Hendrickson MD [Med Staff - Consulting] - See Referral Note (Next week, call for an appointment) Marcelino Moon DO [Primary Care Provider] - Within 1 Month Disposition Disposition (needs filled in before D/C Order can be placed): Home, Self Care
--- NOTE | 2023-07-09 13:20 | PCM.DC.SUM ---
Providers Date of Admission: 07/05/23 Date of Discharge: 07/09/23 Primary Care Physician: Dr. Marcelino Moon DO Reason For Visit: CHF EXACERBATION, HYPOXIA Diagnosis Discharge Diagnosis (1) CHF (congestive heart failure): Status: Acute Code(s): I50.9 - Heart failure, unspecified Plan 1. Acute on chronic diastolic congestive heart failure-patient continues on Lasix drip at 10 mg/h #2 hypoxia secondary #1-patient is currently on 2 L via nasal cannula, pulse ox will be monitored #3 chronic kidney disease stage IV-complicates care, medical course, recovery, and prognosis #4 Hypokalemia-patient will be given supplemental potassium, BMP will be monitored #5 paroxysmal atrial fibrillation-patient is currently on warfarin, metoprolol, and flecainide #6 morbid obesity-complicates care, medical course, recovery, and prognosis #7 moderate pulmonary hypertension Total clinical time spent by myself addressing the patient's medical issues, reviewing all of her data, and collaborating with the patient's care team: 25 minutes Medications at Discharge Home Medications albuterol sulfate 90 mcg/actuation aerosol inhaler 2 puff inhalation Q4H PRN PRN Wheezing 08/10/15 allopurinol 300 mg tablet 300 mg PO DAILY gout 08/10/15 folic acid 1 mg tablet 1 mg PO DAILY SUPPLEMENT 12/04/19 canagliflozin 100 mg tablet (Invokana) 100 mg PO DAILY HEART 04/25/21 cholecalciferol (vitamin D3) 25 mcg (1,000 unit) tablet 1,000 unit PO BID supplement 04/25/21 insulin glargine 100 unit/mL subcutaneous solution 17 unit subcut QHS blood glucose 04/25/21 insulin lispro 100 unit/mL subcutaneous solution 10 unit subcut TIDCM blood glucose 04/25/21 levothyroxine 175 mcg tablet 175 mcg PO DAILY THYROID 04/25/21 triamcinolone acetonide 0.5 % topical cream 1 applic topical BID RASH 04/25/21 aspirin 81 mg tablet,delayed release 81 mg PO DAILY BLOOD THINNER 06/19/22 [id number] 8 mg-folic ac 400 mcg-vit K 10 mcg chew tablet (Centrum Chewables) 1 tab PO DAILY HEALTH MAINTENANCE 06/19/22 warfarin 4 mg tablet 4 mg PO MOTUWETH BLOOD THINNER 06/19/22 warfarin 4 mg tablet 6 mg PO SUFRSA BLOOD THINNER 06/19/22 flecainide 100 mg tablet 100 mg PO BID HEART #180 tabs 09/05/22 Coricidin D 2 tab PO/SL Q4H PRN Cold Symptoms 12/13/22 pravastatin 40 mg tablet 40 mg PO DAILY CHOLESTEROL #90 tabs 01/01/23 doxazosin 2 mg tablet (Cardura) 2 mg PO DAILY urine #90 tabs 04/26/23 albuterol sulfate 2.5 mg/3 mL (0.083 %) solution for nebulization 2.5 mg continuous nebulization Q4H PRN shortness of breath or wheezing 07/05/23 amlodipine 10 mg tablet 10 mg PO DAILY blood pressure 07/05/23 cetirizine 10 mg tablet 10 mg PO DAILY allergies 07/05/23 metoprolol succinate 50 mg tablet,extended release 24 hr 25 mg PO DAILY blood pressure 07/05/23 montelukast 10 mg tablet 10 mg PO DAILY allergies 07/05/23 furosemide 40 mg tablet (Lasix) 80 mg (2 x 40 mg) PO BID #120 tabs 07/09/23 potassium chloride 20 mEq tablet,extended release(part/cryst) (Klor-Con M) 20 meq PO BIDCM #60 tabs 07/09/23 Hospital Course Operations None Procedures 2-D Echocardiogram Summary of Care Provided Minutes Spent on Discharge: 31 Hospital Course: This 83-year-old white female was seen in the emergency room at [facility] with complaints of shortness of breath. Patient also complained of generalized water retention in her legs, arms, and around her abdomen. She related to history of CHF, and she is on diuretics at home. Patient had an EKG performed which showed a dual paced rhythm, CBC showed a normal white count, hemoglobin was 11.5, chemistry profile was unremarkable except for a BUN of 51 and a creatinine of 2.38. Patient's beta natruretic peptide was elevated at 571, chest x-ray showed increased markings in the right lower lobe which was interpreted as either atelectasis or infiltrate. Patient was given IV Lasix in the emergency room and a DuoNeb aerosol, it was noted while she was in the ER that her oxygen saturation dropped down to 87% on room air and the patient was placed on supplemental oxygen. Patient was Admitted to PCU for congestive heart failure-acute on chronic, she was given IV Lasix, echocardiogram was performed which showed a normal ejection fraction of 55%. Initially patient was given programmed Lasix by bolus, this was then changed to continuous IV infusion and the patient did diurese quite a bit of fluid. On 07/09/2023, patient was seen and examined: On examination she appeared in good health and spirits, she does not appear to be in any distress. Vital signs as documented. Skin warm and dry and without overt rashes. Neck without JVD, thyroid appears normal, trachea is midline, neck is supple. Lungs clear, normal air movement was noted. Heart exam notable for regular rhythm, normal sounds and absence of murmurs, rubs or gallops. Abdomen unremarkable and without evidence of organomegaly, masses, or abdominal aortic enlargement, bowel sounds are present in all 4 quadrants, no abdominal tenderness was noted. Extremities-generalized edema was noted over both lower legs, no cyanosis was noted, no clubbing was noted. Neuro: Cranial nerves II through XII are grossly intact, no focal motor deficits were noted, sensation to light touch and pinprick is intact, motor exam 5/5 throughout. Psych: Patient is alert and oriented x3, she does not appear anxious or depressed, she does not appear agitated. At the time of discharge on 07/09/2023, patient required 3 L of oxygen with ambulation and no oxygen at rest. Oxygen was set up for the patient, patient is ambulatory in the home and community and requires home oxygen with portability. Patient appears stable for discharge home on 07/09/2023, I talked with the patient's son about her medical care before she was discharged. I also contacted Dr. Hendrickson who is the patient's wildlife control operator, she will see Dr. Hendrickson next week in the office. Weight / BMI Weight Weight: 93.1 kg Body Mass Index (BMI) 37.5 ABG / Lab / Microbiology Data 07/08/23 05:32 07/09/23 05:54 Laboratory: Laboratory Results - last 24 hr 07/08/23 16:03: POC Glucose 134 H 07/08/23 21:07: POC Glucose 156 H 07/09/23 05:54: Sodium 138, Potassium 4.2, Chloride 103, Carbon Dioxide 31.0, Anion Gap 4 L, BUN 60 H, Creatinine 2.30 H, Estim Creat Clear Calc 14.40, Est GFR (MDRD) Af Amer 26 L, Est GFR (MDRD) Non-Af 21 L, BUN/Creatinine Ratio 26.1 H, Glucose 89, Calcium 8.1 L 07/09/23 08:01: POC Glucose 74 07/09/23 11:29: POC Glucose 162 H Microbiology: Microbiology 07/05/23 17:42 Nasal Secretion SARS-CoV-2 & FLU Antigen (Rapid) - Final D/C Instructions Discharge Diet: 1800 Calorie Control Diet Weight Bearing Status: Full weight bearing Meaningful Use Info Meaningful Use Diagnoses (Choose all that apply): CHF CHF MAHSA/ARB ordered at discharge?: No Reason MAHSA/ARB not ordered?: Not indicated Documented LVEF (%): 55 Discharge Plan Admission Admit Date/Time: 07/05/23 20:03 Primary Reason for Your Visit: Congestive heart failure with normal ejection fraction- acute on chronic Attending Provider: Santo Warren Primary Care Provider: Marcelino Moon Consulting Providers: Kayla Bowden Instructions Additional Instructions / Restrictions: Use 3 L of oxygen by nasal cannula when ambulating or sleep Discharge Orders/Prescriptions Prescriptions: New potassium chloride [Klor-Con M20] 20 mEq Tablet,Er Particles/Crystals 20 meq PO BIDCM Qty: 60 0RF furosemide [Lasix] 40 mg tablet 80 mg PO BID Qty: 120 0RF Continued folic acid 1 mg tablet 1 mg PO DAILY Invokana 100 mg tablet 100 mg PO DAILY Hold Instructions: Hold for 1 week. Follow-up with the wildlife control operator. insulin lispro 100 unit/mL solution 10 unit subcut TIDCM insulin glargine 100 unit/mL solution 17 unit subcut QHS levothyroxine 175 mcg tablet 175 mcg PO DAILY triamcinolone acetonide 0.5 % cream 1 applic topical BID allopurinol 300 MG tablet 300 mg PO DAILY albuterol sulfate 1 INHALER inhaler 2 puff inhalation Q4H PRN PRN (Reason: Wheezing) cholecalciferol (vitamin D3) 25 mcg (1,000 unit) tablet 1,000 unit PO BID aspirin 81 mg Tablet,Delayed Release (Dr/Ec) 81 mg PO DAILY warfarin 4 mg tablet 6 mg PO SUFRSA Protocol: Dose Management Condition: Sunday Dose/Route: 4 mg Instruction: 1 x 4 mg tablet Condition: Sunday Dose/Route: 4 mg Instruction: 1 x 4 mg tablet Condition: Sunday Dose/Route: 4 mg Instruction: 1 x 4 mg tablet Condition: Sunday Dose/Route: 6 mg Instruction: 1.5 x 4 mg tablets Condition: Dose/Route: 6 mg Instruction: 1.5 x 4 mg tablets Condition: Sunday Dose/Route: 4 mg Instruction: 1 x 4 mg tablet Condition: Sunday Dose/Route: 4 mg Instruction: 1 x 4 mg tablet Protocol Text: Adjustment Start Date: Sunday05/16/23 INR Value: 2.1 INR Date: 05/16/23 Recheck Date: 06/13/23 Centrum Chewables 8 mg-400 mcg- 10 mcg Tablet,Chewable 1 tab PO DAILY [facility]in 4 mg [facility] Protocol: Dose Management Condition: Sunday Dose/Route: 4 mg Instruction: 1 x 4 mg tablet Condition: Sunday Dose/Route: 4 mg Instruction: 1 x 4 mg tablet Condition: Sunday Dose/Route: 4 mg Instruction: 1 x 4 mg tablet Condition: Sunday Dose/Route: 6 mg Instruction: 1.5 x 4 mg tablets Condition: Dose/Route: 6 mg Instruction: 1.5 x 4 mg tablets Condition: Sunday Dose/Route: 4 mg Instruction: 1 x 4 mg tablet Condition: Sunday Dose/Route: 4 mg Instruction: 1 x 4 mg tablet Protocol Text: Adjustment Start Date: Sunday05/16/23 INR Value: 2.1 INR Date: 05/16/23 Recheck Date: 06/13/23 Coricidin D 2 tab PO/SL Q4H PRN (Reason: Cold Symptoms) albuterol sulfate 2.5 mg /3 mL (0.083 %) solution for nebulization 2.5 mg continuous nebulization Q4H PRN (Reason: shortness of breath or wheezing) Patient Comments: inhale contents of 1 vial ( 3 milliliters ) in nebulizer by mouth... (REFER TO PRESCRIPTION NOTES). metoprolol succinate 50 mg tablet extended release 24 hr 25 mg PO DAILY amlodipine 10 mg tablet 10 mg PO DAILY cetirizine 10 mg tablet 10 mg PO DAILY Patient Comments: take 1 tablet by mouth once daily montelukast 10 mg tablet 10 mg PO DAILY flecainide 100 mg tablet 100 mg PO BID Qty: 180 3RF pravastatin 40 mg tablet 40 mg PO DAILY Qty: 90 3RF doxazosin [Cardura] 2 mg tablet 2 mg PO DAILY Qty: 90 3RF Discontinued furosemide 40 mg tablet 40 mg PO DAILY Qty: 30 1RF Referrals / Follow Up: Darren Hendrickson MD [Med Staff - Consulting] - See Referral Note (Next week, call for an appointment) Marcelino Moon DO [Primary Care Provider] - Within 1 Month Disposition Disposition (needs filled in before D/C Order can be placed): Home, Self Care Charges/Coding Visit Charges Inpatient E&M: 37568 Disch Hosp >30min
--- NOTE | 2023-07-09 13:52 | CASEMGMT ---
SCAR SHARPE updated that patient will need home oxygen at discharge. Script received and sent to [facility] via [facility], patient's preferred provider. SCAR CM in to update patient. Patient declines further needs at this time. SCAR SHARPE instructed patient to follow-up with PCP should needs arise after discharge, patient voiced understanding. Patient had no further questions or concerns at this time.
--- NOTE | 2023-07-09 14:04 | PHA.DC_ITS ---
Pharmacy [facility] has performed discharge medication reconciliation and counseling for this patient. The patient's discharge medication list was reviewed for discrepancies and discrepancies were resolved. The patient was counseled on the following discharge medications and changes in medications for homegoing were reviewed. The Reason for Use, instructions for use, and potential side effects were reviewed for all new medications. The patient's questions regarding all of their medications were answered. 1. Furosemide 80 mg PO BID 2. Potassium chloride 20 mEq PO BID with meals The patient was able to verbally demonstrate an understanding of their discharge medications. Medications at Discharge Home Medications albuterol sulfate 90 mcg/actuation aerosol inhaler 2 puff inhalation Q4H PRN PRN Wheezing 08/10/15 allopurinol 300 mg tablet 300 mg PO DAILY gout 08/10/15 folic acid 1 mg tablet 1 mg PO DAILY SUPPLEMENT 12/04/19 canagliflozin 100 mg tablet (Invokana) 100 mg PO DAILY HEART 04/25/21 cholecalciferol (vitamin D3) 25 mcg (1,000 unit) tablet 1,000 unit PO BID supplement 04/25/21 insulin glargine 100 unit/mL subcutaneous solution 17 unit subcut QHS blood glucose 04/25/21 insulin lispro 100 unit/mL subcutaneous solution 10 unit subcut TIDCM blood glucose 04/25/21 levothyroxine 175 mcg tablet 175 mcg PO DAILY THYROID 04/25/21 triamcinolone acetonide 0.5 % topical cream 1 applic topical BID RASH 04/25/21 aspirin 81 mg tablet,delayed release 81 mg PO DAILY BLOOD THINNER 06/19/22 prpcffzd-hffswaoo-wvtd 8 mg-folic ac 400 mcg-vit K 10 mcg chew tablet (Centrum Chewables) 1 tab PO DAILY HEALTH MAINTENANCE 06/19/22 warfarin 4 mg tablet 4 mg PO MOTUWETH BLOOD THINNER 06/19/22 warfarin 4 mg tablet 6 mg PO SUFRSA BLOOD THINNER 06/19/22 flecainide 100 mg tablet 100 mg PO BID HEART #180 tabs 09/05/22 Coricidin D 2 tab PO/SL Q4H PRN Cold Symptoms 12/13/22 pravastatin 40 mg tablet 40 mg PO DAILY CHOLESTEROL #90 tabs 01/01/23 doxazosin 2 mg tablet (Cardura) 2 mg PO DAILY urine #90 tabs 04/26/23 albuterol sulfate 2.5 mg/3 mL (0.083 %) solution for nebulization 2.5 mg continuous nebulization Q4H PRN shortness of breath or wheezing 07/05/23 amlodipine 10 mg tablet 10 mg PO DAILY blood pressure 07/05/23 cetirizine 10 mg tablet 10 mg PO DAILY allergies 07/05/23 metoprolol succinate 50 mg tablet,extended release 24 hr 25 mg PO DAILY blood pressure 07/05/23 montelukast 10 mg tablet 10 mg PO DAILY allergies 07/05/23 furosemide 40 mg tablet (Lasix) 80 mg (2 x 40 mg) PO BID #120 tabs 07/09/23 potassium chloride 20 mEq tablet,extended release(part/cryst) (Klor-Con M) 20 meq PO BIDCM #60 tabs 07/09/23
== END 2023-07-09 16:09 | disposition home or self-care (01) | DRG 291 ==
LOC: ED 19:55 → PCU 20:18
PROVIDERS: Admitting Provider Family Medicine; Emergency Provider Emergency Medicine; PCP Student in an Organized Health Care Education/Training Program; Visit Provider Internal Medicine
DX: I13.0 Hypertensive heart and chronic kidney disease with heart failure and stage 1 through stage 4 chronic kidney disease, or unspecified chronic kidney disease (principal); I50.33 Acute on chronic diastolic (congestive) heart failure; N18.4 Chronic kidney disease, stage 4 (severe); I27.20 Pulmonary hypertension, unspecified; E11.22 Type 2 diabetes mellitus with diabetic chronic kidney disease; E66.01 Morbid (severe) obesity due to excess calories; Z79.4 Long term (current) use of insulin; I48.0 Paroxysmal atrial fibrillation; E03.9 Hypothyroidism, unspecified; M10.9 Gout, unspecified; E78.5 Hyperlipidemia, unspecified; G47.33 Obstructive sleep apnea (adult) (pediatric); E87.6 Hypokalemia; Z68.37 Body mass index [BMI] 37.0-37.9, adult; R09.02 Hypoxemia; Z23 Encounter for immunization; Z79.82 Long term (current) use of aspirin; Z79.01 Long term (current) use of anticoagulants; Z79.890 Hormone replacement therapy; Z79.899 Other long term (current) drug therapy; Z95.0 Presence of cardiac pacemaker; R31.9 Hematuria, unspecified
CPT/HCPCS: 36415; 71045; 80048; 80053; 80061; 81001; 82962; 83735; 83880; 84439; 84443; 84484; 85025; 85610; 87428; 93005; 93306; 94640; 94668; 97110; 97161; 97166; 97530; 97535; 97802; 99285; 90662; A4216; J1940

== ENCOUNTER 2023-07-26 11:04 | Outpatient (RCR) | payer MEDICARE, OTHER, SELFPAY ==
[2023-05-31 21:50] VITALS: BMI 36.5
[2023-07-19 11:34] LABS: Prothrombin Time (Protime)PT. 42.1 SECONDS (11.7-14.9)
[2023-07-19 11:37] LABS: International Normalized Ratio 4.3
[2023-07-19 11:38] LABS: Protein, Urine (Random) 16.9 mg/dL (<11.9); Protein:Creat Ratio 494 mg/g CRE (0-200)
[2023-07-19 11:56] LABS: PTHIN 139.4 pg/mL (18.4-80.1)
[2023-07-19 11:57] LABS: Albumin, Serum 3.3 g/dL (3.2-5.0); BUN 63 mg/dL (7-18); BUN/Creat Ratio 23.7 RATIO (10-20); Calcium,Total 8.7 mg/dL (8.5-10.1); Chloride 99 mmol/L (98-107); Creatinine, Serum 2.66 mg/dL (0.55-1.02); EST Glomerular Filtration Rate 18 mL/min (>60); Est Glom Filt Rate - Afr Amer 22 mL/min (>60); Glucose 109 mg/dL (74-106); Phosphorus 4.1 mg/dL (2.5-4.9); Potassium 4.3 mmol/L (3.5-5.1); Sodium Level 135 mmol/L (136-145)
[2023-07-19 12:01] LABS: Vitamin D,25 Hydroxy 56.6 ng/mL
== END 2023-07-26 18:00 | disposition home or self-care (01) ==
LOC: LAB 11:04
PROVIDERS: Internal Medicine Cardiovascular Disease; PCP Student in an Organized Health Care Education/Training Program; Referring Provider Nurse Practitioner Family; Visit Provider Nurse Practitioner Family
DX: I48.0 Paroxysmal atrial fibrillation (principal); Z79.01 Long term (current) use of anticoagulants; N25.81 Secondary hyperparathyroidism of renal origin; R80.9 Proteinuria, unspecified; E55.9 Vitamin D deficiency, unspecified
CPT/HCPCS: 36415; 80069; 82306; 82570; 83970; 84156; 85610

== ENCOUNTER 2023-08-14 14:47 | Outpatient (RCR) | payer MEDICARE, OTHER, SELFPAY ==
[2023-07-31 22:43] VITALS: BMI 36.5
[2023-08-14 15:46] LABS: International Normalized Ratio 2.3; Prothrombin Time (Protime)PT. 25.1 SECONDS (11.7-14.9)
== END 2023-08-30 18:00 | disposition home or self-care (01) ==
LOC: LAB 14:47
PROVIDERS: PCP Student in an Organized Health Care Education/Training Program; Referring Provider Nurse Practitioner Family; Visit Provider Nurse Practitioner Family
DX: I48.0 Paroxysmal atrial fibrillation (principal); Z79.01 Long term (current) use of anticoagulants
CPT/HCPCS: 36415; 85610

== ENCOUNTER 2023-09-11 15:24 | Outpatient (RCR) | payer MEDICARE, OTHER, SELFPAY ==
[2023-08-31 03:01] VITALS: BMI 36.5
[2023-09-11 16:44] LABS: International Normalized Ratio 2.1
== END 2023-09-30 18:00 | disposition home or self-care (01) ==
LOC: LAB 15:24
PROVIDERS: PCP Student in an Organized Health Care Education/Training Program; Referring Provider Nurse Practitioner Family; Visit Provider Nurse Practitioner Family
DX: I48.0 Paroxysmal atrial fibrillation (principal); Z79.01 Long term (current) use of anticoagulants
CPT/HCPCS: 36415; 85610

== ENCOUNTER 2023-10-23 15:02 | Outpatient (RCR) | payer MEDICARE, OTHER, SELFPAY ==
[2023-09-30 20:51] VITALS: BMI 36.5
[2023-10-09 14:39] LABS: International Normalized Ratio 1.8; Prothrombin Time (Protime)PT. 21.1 SECONDS (11.7-14.9)
[2023-10-23 15:47] LABS: International Normalized Ratio 2.2; Prothrombin Time (Protime)PT. 24.9 SECONDS (11.7-14.9)
== END 2023-10-23 18:00 | disposition home or self-care (01) ==
LOC: LAB 15:02
PROVIDERS: PCP Student in an Organized Health Care Education/Training Program; Referring Provider Nurse Practitioner Family; Visit Provider Nurse Practitioner Family
DX: I48.0 Paroxysmal atrial fibrillation (principal); Z79.01 Long term (current) use of anticoagulants
CPT/HCPCS: 36415; 85610

== ENCOUNTER → 2023-11-13 | Outpatient (CLI) | payer MEDICARE, OTHER, SELFPAY ==
[2023-11-13 11:18] LABS: Hematocrit 40.8 % (37-47); Hemoglobin 12.7 g/dL (12.0-15.0); Mean Corp Hgb Conc 31.1 g/dL (32-36); Mean Corpuscular Hgb 29.1 pg (27.0-32.0); Mean Corpuscular Volume 93.4 fL (81-99); Mean Platelet Vol. 10.9 fl (6.2-12.0); Platelet Count 255 K/mm3 (150-450); RBC Distribution Width CV 15.1 % (11.6-14.6); RBC Distribution Width SD 51.6 fl (35.1-43.9); Red Blood Count 4.37 M/mm3 (4.2-5.4); White Blood Count 7.8 K/mm3 (4.4-11.0)
[2023-11-13 11:33] LABS: Protein, Urine (Random) 20.7 mg/dL (<11.9); Protein:Creat Ratio 466 mg/g CRE (0-200)
[2023-11-13 11:39] LABS: International Normalized Ratio 3.2; Prothrombin Time (Protime)PT. 32.9 SECONDS (11.7-14.9)
[2023-11-13 11:47] LABS: PTHIN 159.9 pg/mL (18.4-80.1)
[2023-11-13 11:49] LABS: Albumin, Serum 3.3 g/dL (3.2-5.0); BUN 62 mg/dL (7-18); BUN/Creat Ratio 29.5 RATIO (10-20); Chloride 112 mmol/L (98-107); EST Glomerular Filtration Rate 24 mL/min (>60); Est Glom Filt Rate - Afr Amer 29 mL/min (>60); Glucose 122 mg/dL (74-106); Phosphorus 4.2 mg/dL (2.5-4.9); Potassium 4.5 mmol/L (3.5-5.1); Sodium Level 142 mmol/L (136-145)
[2023-11-13 11:51] LABS: Vitamin D,25 Hydroxy 35.3 ng/mL
== END | disposition home or self-care (01) ==
LOC: LAB 10:48
PROVIDERS: Internal Medicine Cardiovascular Disease; PCP Student in an Organized Health Care Education/Training Program; Referring Provider Nurse Practitioner Adult Health; Visit Provider Nurse Practitioner Adult Health
DX: N18.32 Chronic kidney disease, stage 3b (principal); I48.0 Paroxysmal atrial fibrillation; E55.9 Vitamin D deficiency, unspecified; Z79.01 Long term (current) use of anticoagulants
CPT/HCPCS: 36415; 80069; 82306; 82570; 83970; 84156; 85027; 85610

== ENCOUNTER 2023-11-28 11:22 | Outpatient (RCR) | payer MEDICARE, OTHER, SELFPAY ==
[2023-10-31 21:37] VITALS: BMI 36.5
[2023-11-28 13:05] LABS: International Normalized Ratio 3.2; Prothrombin Time (Protime)PT. 32.4 SECONDS (11.7-14.9)
== END 2023-11-29 18:00 | disposition home or self-care (01) ==
LOC: LAB 11:22
PROVIDERS: PCP Student in an Organized Health Care Education/Training Program; Referring Provider Nurse Practitioner Family; Visit Provider Nurse Practitioner Family
DX: I48.0 Paroxysmal atrial fibrillation (principal); Z79.01 Long term (current) use of anticoagulants
CPT/HCPCS: 36415; 85610

== ENCOUNTER 2023-12-17 10:10 | Outpatient (RCR) | payer MEDICARE, OTHER, SELFPAY ==
[2023-11-29 22:05] VITALS: BMI 36.5
[2023-12-12 13:51] LABS: Prothrombin Time (Protime)PT. 41.3 SECONDS (11.7-14.9)
[2023-12-12 19:31] LABS: International Normalized Ratio 4.4
[2023-12-17 11:01] LABS: International Normalized Ratio 2.6
== END 2023-12-29 18:00 | disposition home or self-care (01) ==
LOC: LAB 10:10
PROVIDERS: PCP Student in an Organized Health Care Education/Training Program; Referring Provider Nurse Practitioner Family; Visit Provider Nurse Practitioner Family
DX: I48.0 Paroxysmal atrial fibrillation (principal); Z79.01 Long term (current) use of anticoagulants
CPT/HCPCS: 36415; 85610

== ENCOUNTER → 2023-12-24 | Outpatient (CLI) | payer MEDICARE, OTHER, SELFPAY ==
--- NOTE | 2023-12-24 14:05 | STRESSREP ---
Stress Test Report Pharmacologic myocardial perfusion stress test. 83-year-old lady with a history of chest pain Resting EKG demonstrates sinus rhythm with a first-degree AV block with a rate of 60 bpm. Resting blood pressure is 150/62 mmHg. 0.4 mg of regadenoson was infused per usual protocol followed by rapid intravenous saline flush injection. Continuous EKG monitoring was performed. The maximum heart rate was 82 bpm which was 60% of max impacted heart rate the maximum workload was 1 metabolic equivalent. At rest there were no ST or T wave changes noted to suggest ischemia and at peak infusion nonspecific ST changes were noted which did not meet the criteria for ischemia. No clinical angina is noted. The final blood pressure was 148/60 mmHg. Myocardial perfusion protocol. 14.3 mCi of technetium 99m sestamibi was injected at rest. 0.4 mg of regadenoson was infused per usual protocol. At peak infusion 43.6 mCi of technetium 99m sestamibi was injected stress images were obtained stress and rest images were reconstructed and compared in the short axis vertical long and horizontal long axis. Gated images were also obtained. Perfusion SPECT analysis: Review of the stress images demonstrate normal uptake of tracer noted in all areas of the myocardium. The resting images similar demonstrated normal uptake of tracer noted in all areas of the myocardium. No areas of reversibility are noted to suggest ischemia and no previous infarct is noted. Gated SPECT analysis: The gated ejection fraction is 78%. Conclusion: Normal pharmacologic myocardial perfusion stress test. Preserved ejection fraction.
== END | disposition home or self-care (01) ==
LOC: CVS 06:56
PROVIDERS: PCP Student in an Organized Health Care Education/Training Program; Referring Provider Physician Assistant Medical; Visit Provider Physician Assistant Medical
DX: I48.0 Paroxysmal atrial fibrillation (principal); R94.31 Abnormal electrocardiogram [ECG] [EKG]; Z51.81 Encounter for therapeutic drug level monitoring; Z79.899 Other long term (current) drug therapy
CPT/HCPCS: 78452; 93017; A9500; A4216; J2785

== ENCOUNTER 2024-01-29 10:35 | Outpatient (RCR) | payer MEDICARE, OTHER, SELFPAY ==
[2023-12-29 21:29] VITALS: BMI 36.5
[2024-01-01 15:08] LABS: Prothrombin Time (Protime)PT. 31.1 SECONDS (11.7-14.9)
[2024-01-22 11:02] LABS: International Normalized Ratio 3.5; Prothrombin Time (Protime)PT. 34.9 SECONDS (11.7-14.9)
[2024-01-29 11:27] LABS: International Normalized Ratio 2.7; Prothrombin Time (Protime)PT. 28.1 SECONDS (11.7-14.9)
== END 2024-01-29 22:34 | disposition home or self-care (01) ==
LOC: LAB 10:35
PROVIDERS: PCP Student in an Organized Health Care Education/Training Program; Referring Provider Nurse Practitioner Family; Visit Provider Nurse Practitioner Family
DX: I48.0 Paroxysmal atrial fibrillation (principal); Z79.01 Long term (current) use of anticoagulants
CPT/HCPCS: 36415; 85610

== ENCOUNTER 2024-02-12 10:18 | Outpatient (RCR) | payer MEDICARE, OTHER, SELFPAY ==
[2024-01-29 22:35] VITALS: BMI 36.5
[2024-02-12 11:22] LABS: International Normalized Ratio 2.6
== END 2024-02-12 18:00 | disposition home or self-care (01) ==
LOC: LAB 10:18
PROVIDERS: PCP Student in an Organized Health Care Education/Training Program; Referring Provider Nurse Practitioner Family; Visit Provider Nurse Practitioner Family
DX: I48.0 Paroxysmal atrial fibrillation (principal); Z79.01 Long term (current) use of anticoagulants
CPT/HCPCS: 36415; 85610

== ENCOUNTER 2024-03-11 10:25 | Outpatient (RCR) | payer MEDICARE, OTHER, SELFPAY ==
[2024-03-03 08:48] VITALS: BMI 36.5
[2024-03-11 10:47] LABS: International Normalized Ratio 2.3; Prothrombin Time (Protime)PT. 24.8 SECONDS (11.7-14.9)
== END 2024-03-11 18:00 | disposition home or self-care (01) ==
LOC: LAB 10:25
PROVIDERS: PCP Student in an Organized Health Care Education/Training Program; Referring Provider Nurse Practitioner Family; Visit Provider Nurse Practitioner Family
DX: I48.0 Paroxysmal atrial fibrillation (principal); Z79.01 Long term (current) use of anticoagulants
CPT/HCPCS: 36415; 85610

== ENCOUNTER → 2024-03-26 | Outpatient (CLI) | payer MEDICARE, OTHER, SELFPAY ==
[2024-03-26 14:29] LABS: Hematocrit 40.1 % (37-47); Hemoglobin 12.3 g/dL (12.0-15.0); Mean Corp Hgb Conc 30.7 g/dL (32-36); Mean Corpuscular Hgb 28.6 pg (27.0-32.0); Mean Corpuscular Volume 93.3 fL (81-99); Mean Platelet Vol. 11.4 fl (6.2-12.0); Platelet Count 242 K/mm3 (150-450); RBC Distribution Width CV 15.4 % (11.6-14.6); RBC Distribution Width SD 52.2 fl (35.1-43.9); White Blood Count 8.4 K/mm3 (4.4-11.0)
[2024-03-26 15:06] LABS: Albumin, Serum 3.4 g/dL (3.2-5.0); BUN 52 mg/dL (7-18); BUN/Creat Ratio 25.4 RATIO (10-20); Calcium,Total 8.5 mg/dL (8.5-10.1); Chloride 108 mmol/L (98-107); Creatinine, Serum 2.05 mg/dL (0.55-1.02); EST Glomerular Filtration Rate 24 mL/min (>60); Est Glom Filt Rate - Afr Amer 30 mL/min (>60); Glucose 117 mg/dL (74-106); Phosphorus 4.3 mg/dL (2.5-4.9); Potassium 5.1 mmol/L (3.5-5.1); Sodium Level 137 mmol/L (136-145)
[2024-03-26 15:07] LABS: PTHIN 236.5 pg/mL (18.4-80.1)
[2024-03-26 15:10] LABS: Vitamin D,25 Hydroxy 30.7 ng/mL
[2024-03-26 16:09] LABS: Protein, Urine (Random) 23.6 mg/dL (<11.9); Protein:Creat Ratio 421 mg/g CRE (0-200)
== END | disposition home or self-care (01) ==
LOC: LAB 13:44
PROVIDERS: PCP Student in an Organized Health Care Education/Training Program; Referring Provider Internal Medicine Nephrology; Visit Provider Internal Medicine Nephrology
DX: E55.9 Vitamin D deficiency, unspecified (principal); N18.32 Chronic kidney disease, stage 3b; N25.81 Secondary hyperparathyroidism of renal origin; D63.1 Anemia in chronic kidney disease; R80.9 Proteinuria, unspecified
CPT/HCPCS: 36415; 80069; 82306; 82570; 83970; 84156; 85027

== ENCOUNTER 2024-04-09 10:45 | Outpatient (RCR) | payer MEDICARE, OTHER, SELFPAY ==
[2024-03-30 22:20] VITALS: BMI 36.5
[2024-04-09 11:18] LABS: International Normalized Ratio 1.8; Prothrombin Time (Protime)PT. 20.9 SECONDS (11.7-14.9)
== END 2024-04-30 18:00 | disposition home or self-care (01) ==
LOC: LAB 10:45
PROVIDERS: PCP Student in an Organized Health Care Education/Training Program; Referring Provider Nurse Practitioner Family; Visit Provider Nurse Practitioner Family
DX: I48.0 Paroxysmal atrial fibrillation (principal); Z79.01 Long term (current) use of anticoagulants
CPT/HCPCS: 36415; 85610

== ENCOUNTER 2024-05-21 10:42 | Outpatient (RCR) | payer MEDICARE, OTHER, SELFPAY ==
[2024-04-30 20:23] VITALS: BMI 36.5
[2024-05-06 14:31] LABS: International Normalized Ratio 1.8; Prothrombin Time (Protime)PT. 20.8 SECONDS (11.7-14.9)
[2024-05-21 11:27] LABS: International Normalized Ratio 1.9; Prothrombin Time (Protime)PT. 22.1 SECONDS (11.7-14.9)
== END 2024-05-21 18:00 | disposition home or self-care (01) ==
LOC: LAB 10:42
PROVIDERS: Physician Assistant Medical; PCP Student in an Organized Health Care Education/Training Program; Referring Provider Nurse Practitioner Family; Visit Provider Nurse Practitioner Family
DX: Z79.01 Long term (current) use of anticoagulants
CPT/HCPCS: 36415; 85610

== ENCOUNTER 2024-06-11 12:40 | Outpatient (RCR) | payer MEDICARE, OTHER, SELFPAY ==
[2024-06-01 02:04] VITALS: BMI 36.5
[2024-06-11 13:56] LABS: International Normalized Ratio 2.1; Prothrombin Time (Protime)PT. 23.6 SECONDS (11.7-14.9)
== END 2024-06-11 18:00 | disposition home or self-care (01) ==
LOC: LAB 12:40
PROVIDERS: PCP Student in an Organized Health Care Education/Training Program; Referring Provider Nurse Practitioner Family; Visit Provider Nurse Practitioner Family
DX: Z79.01 Long term (current) use of anticoagulants
CPT/HCPCS: 36415; 85610

== ENCOUNTER 2024-07-09 10:27 | Outpatient (RCR) | payer MEDICARE, OTHER, SELFPAY ==
[2024-06-30 22:56] VITALS: BMI 36.5
[2024-07-09 11:06] LABS: International Normalized Ratio 2.4; Prothrombin Time (Protime)PT. 25.6 SECONDS (11.7-14.9)
== END 2024-07-09 18:00 | disposition home or self-care (01) ==
LOC: LAB 10:27
PROVIDERS: PCP Student in an Organized Health Care Education/Training Program; Referring Provider Nurse Practitioner Family; Visit Provider Nurse Practitioner Family
DX: Z79.01 Long term (current) use of anticoagulants
CPT/HCPCS: 36415; 85610

== ENCOUNTER 2024-08-19 10:34 | Outpatient (RCR) | payer MEDICARE, OTHER, SELFPAY ==
[2024-07-31 20:50] VITALS: BMI 36.5
[2024-08-05 15:24] LABS: International Normalized Ratio 3.2; Prothrombin Time (Protime)PT. 32.7 SECONDS (11.7-14.9)
[2024-08-19 11:16] LABS: International Normalized Ratio 2.6
== END 2024-08-30 18:00 | disposition home or self-care (01) ==
LOC: LAB 10:34
PROVIDERS: PCP Student in an Organized Health Care Education/Training Program; Referring Provider Nurse Practitioner Family; Visit Provider Nurse Practitioner Family
DX: Z79.01 Long term (current) use of anticoagulants
CPT/HCPCS: 36415; 85610

== ENCOUNTER 2024-09-17 10:47 | Outpatient (RCR) | payer MEDICARE, OTHER, SELFPAY ==
[2024-08-30 22:41] VITALS: BMI 36.5
[2024-09-17 11:22] LABS: International Normalized Ratio 3.1; Prothrombin Time (Protime)PT. 31.8 SECONDS (11.7-14.9)
== END 2024-09-17 18:00 | disposition home or self-care (01) ==
LOC: LAB 10:47
PROVIDERS: PCP Student in an Organized Health Care Education/Training Program; Referring Provider Nurse Practitioner Family; Visit Provider Nurse Practitioner Family
DX: Z79.01 Long term (current) use of anticoagulants
CPT/HCPCS: 36415; 85610

== ENCOUNTER → 2024-10-03 | Outpatient (CLI) | payer MEDICARE, OTHER, SELFPAY ==
[2024-10-03 12:07] LABS: Hematocrit 42.7 % (37-47); Hemoglobin 13.2 g/dL (12.0-15.0); Mean Corp Hgb Conc 30.9 g/dL (32-36); Mean Corpuscular Hgb 28.4 pg (27.0-32.0); Mean Platelet Vol. 11.5 fl (6.2-12.0); Platelet Count 250 K/mm3 (150-450); RBC Distribution Width CV 15.6 % (11.6-14.6); RBC Distribution Width SD 52.3 fl (35.1-43.9); Red Blood Count 4.64 M/mm3 (4.2-5.4); White Blood Count 10.9 K/mm3 (4.4-11.0)
[2024-10-03 12:22] LABS: Protein, Urine (Random) 17.4 mg/dL (<11.9); Protein:Creat Ratio 405 mg/g CRE (0-200)
[2024-10-03 12:43] LABS: PTHIN 362.8 pg/mL (18.4-80.1)
[2024-10-03 13:08] LABS: Albumin, Serum 3.4 g/dL (3.2-5.0); BUN 67 mg/dL (7-18); BUN/Creat Ratio 29.3 RATIO (10-20); Calcium,Total 8.8 mg/dL (8.5-10.1); Chloride 106 mmol/L (98-107); Creatinine, Serum 2.29 mg/dL (0.55-1.02); EST Glomerular Filtration Rate 22 mL/min (>60); Est Glom Filt Rate - Afr Amer 26 mL/min (>60); Glucose 160 mg/dL (74-106); Phosphorus 4.5 mg/dL (2.5-4.9); Potassium 4.3 mmol/L (3.5-5.1); Sodium Level 138 mmol/L (136-145)
[2024-10-03 13:22] LABS: Vitamin D,25 Hydroxy 23.9 ng/mL
== END | disposition home or self-care (01) ==
PROVIDERS: PCP Student in an Organized Health Care Education/Training Program; Referring Provider Internal Medicine Nephrology; Visit Provider Internal Medicine Nephrology
DX: N25.81 Secondary hyperparathyroidism of renal origin (principal); N18.32 Chronic kidney disease, stage 3b; D63.1 Anemia in chronic kidney disease; R80.9 Proteinuria, unspecified; E55.9 Vitamin D deficiency, unspecified
CPT/HCPCS: 36415; 80069; 82306; 82570; 83970; 84156; 85027

== ENCOUNTER 2024-10-15 15:21 | Outpatient (RCR) | payer MEDICARE, OTHER, SELFPAY ==
[2024-10-01 03:46] VITALS: BMI 36.5
[2024-10-15 16:33] LABS: International Normalized Ratio 2.5; Prothrombin Time (Protime)PT. 27.5 SECONDS (11.7-14.9)
== END 2024-10-15 18:00 | disposition home or self-care (01) ==
LOC: LAB 15:21
PROVIDERS: PCP Student in an Organized Health Care Education/Training Program; Referring Provider Nurse Practitioner Family; Visit Provider Nurse Practitioner Family
DX: Z79.01 Long term (current) use of anticoagulants; N18.32 Chronic kidney disease, stage 3b; N25.81 Secondary hyperparathyroidism of renal origin; D63.1 Anemia in chronic kidney disease; E55.9 Vitamin D deficiency, unspecified; R80.9 Proteinuria, unspecified
CPT/HCPCS: 36415; 85610

== ENCOUNTER 2024-11-19 16:21 | Outpatient (RCR) | payer MEDICARE, OTHER, SELFPAY ==
[2024-10-31 21:07] VITALS: BMI 36.5
[2024-11-19 17:21] LABS: International Normalized Ratio 2.5; Prothrombin Time (Protime)PT. 27.4 SECONDS (11.7-14.9)
== END 2024-11-28 18:00 | disposition home or self-care (01) ==
LOC: LAB 16:21
PROVIDERS: PCP Student in an Organized Health Care Education/Training Program; Referring Provider Nurse Practitioner Family; Visit Provider Nurse Practitioner Family
DX: Z79.01 Long term (current) use of anticoagulants
CPT/HCPCS: 36415; 85610

== ENCOUNTER 2024-12-19 11:30 | Outpatient (RCR) | payer MEDICARE, OTHER, SELFPAY ==
[2024-11-29 03:40] VITALS: BMI 36.5
[2024-12-19 13:04] LABS: International Normalized Ratio 2.7; Prothrombin Time (Protime)PT. 29.1 SECONDS (11.7-14.9)
== END 2024-12-19 18:00 | disposition home or self-care (01) ==
LOC: LAB 11:30
PROVIDERS: PCP Student in an Organized Health Care Education/Training Program; Referring Provider Nurse Practitioner Family; Visit Provider Nurse Practitioner Family
DX: Z79.01 Long term (current) use of anticoagulants (principal)
CPT/HCPCS: 36415; 85610

== ENCOUNTER 2025-01-20 15:34 | Outpatient (RCR) | payer MEDICARE, OTHER, SELFPAY ==
[2024-12-29 21:45] VITALS: BMI 36.5
[2025-01-20 16:13] LABS: International Normalized Ratio 2.3; Prothrombin Time (Protime)PT. 25.7 SECONDS (11.7-14.9)
== END 2025-01-28 18:00 | disposition home or self-care (01) ==
LOC: LAB 15:34
PROVIDERS: PCP Student in an Organized Health Care Education/Training Program; Referring Provider Nurse Practitioner Family; Visit Provider Nurse Practitioner Family
DX: Z79.01 Long term (current) use of anticoagulants
CPT/HCPCS: 36415; 85610

== ENCOUNTER 2025-02-17 14:55 | Outpatient (RCR) | payer MEDICARE, OTHER, SELFPAY ==
[2025-01-28 20:34] VITALS: BMI 36.5
[2025-02-17 17:25] LABS: International Normalized Ratio 2.6; Prothrombin Time (Protime)PT. 28.2 SECONDS (11.7-14.9)
== END 2025-02-17 18:00 | disposition home or self-care (01) ==
LOC: LAB 14:55
PROVIDERS: PCP Student in an Organized Health Care Education/Training Program; Referring Provider Nurse Practitioner Family; Visit Provider Nurse Practitioner Family
DX: Z79.01 Long term (current) use of anticoagulants
CPT/HCPCS: 36415; 85610

== ENCOUNTER 2025-03-17 14:56 | Outpatient (RCR) | payer MEDICARE, OTHER, SELFPAY ==
[2025-02-28 20:35] VITALS: BMI 36.5
[2025-03-17 16:34] LABS: International Normalized Ratio 2.6; Prothrombin Time (Protime)PT. 28.1 SECONDS (11.7-14.9)
== END 2025-03-17 18:00 | disposition home or self-care (01) ==
LOC: LAB 14:56
PROVIDERS: PCP Student in an Organized Health Care Education/Training Program; Referring Provider Nurse Practitioner Family; Visit Provider Nurse Practitioner Family
DX: Z79.01 Long term (current) use of anticoagulants (principal)
CPT/HCPCS: 36415; 85610

== ENCOUNTER 2025-04-01 10:50 | Outpatient (RCR) | payer MEDICARE, OTHER, SELFPAY ==
[2025-04-01 11:36] LABS: Hematocrit 41.0 % (37-47); Hemoglobin 12.8 g/dL (12.0-15.0); Mean Corp Hgb Conc 31.2 g/dL (32-36); Mean Corpuscular Volume 91.5 fL (81-99); Mean Platelet Vol. 11.5 fl (6.2-12.0); Platelet Count 218 K/mm3 (150-450); RBC Distribution Width CV 15.5 % (11.6-14.6); RBC Distribution Width SD 51.8 fl (35.1-43.9); Red Blood Count 4.48 M/mm3 (4.2-5.4); White Blood Count 9.1 K/mm3 (4.4-11.0)
[2025-04-01 11:48] LABS: Prothrombin Time (Protime)PT. 25.9 SECONDS (11.7-14.9)
[2025-04-01 11:52] LABS: Creatinine, Urine (random) 20.50 mg/dL (28.00-217.00); Protein, Urine (Random) 18.8 mg/dL (0.0-12.0); Protein:Creat Ratio 917 mg/g CRE (0-200)
[2025-04-01 12:36] LABS: Albumin, Serum 4.1 g/dL (3.4-4.8); Anion Gap 14 (5-15); BUN 54 mg/dL (4-19); BUN/Creat Ratio 30.5 RATIO (10-20); Calcium,Total 9.0 mg/dL (7.6-11.0); Carbon Dioxide 24.4 mmol/L (21.0-32.0); Chloride 100 mmol/L (98-108); Glucose 133 mg/dL (70-99); Potassium 4.5 mmol/L (3.3-5.1); Vitamin D,25 Hydroxy 45.9 ng/mL (30-100)
[2025-04-01 12:39] LABS: PTHIN 198 pg/mL (11-61)
== END 2025-04-30 20:49 | disposition home or self-care (01) ==
LOC: LAB 10:50
PROVIDERS: PCP Student in an Organized Health Care Education/Training Program; Referring Provider Nurse Practitioner Family; Visit Provider Nurse Practitioner Family
DX: Z79.01 Long term (current) use of anticoagulants (principal); I48.0 Paroxysmal atrial fibrillation; N25.81 Secondary hyperparathyroidism of renal origin; D63.1 Anemia in chronic kidney disease; E55.9 Vitamin D deficiency, unspecified; R80.9 Proteinuria, unspecified; N18.32 Chronic kidney disease, stage 3b
CPT/HCPCS: 36415; 80069; 82306; 82570; 83970; 84156; 85027; 85610

== ENCOUNTER 2025-05-12 14:36 | Outpatient (RCR) | payer MEDICARE, OTHER, SELFPAY ==
[2025-05-12 15:23] LABS: Prothrombin Time (Protime)PT. 25.2 SECONDS (11.7-14.9)
== END 2025-05-12 18:00 | disposition home or self-care (01) ==
LOC: LAB 14:36
PROVIDERS: Internal Medicine Cardiovascular Disease; PCP Student in an Organized Health Care Education/Training Program; Referring Provider Nurse Practitioner Family; Visit Provider Nurse Practitioner Family
DX: Z79.01 Long term (current) use of anticoagulants (principal); I48.0 Paroxysmal atrial fibrillation
CPT/HCPCS: 36415; 85610

== ENCOUNTER 2025-06-15 13:18 | Outpatient (RCR) | payer MEDICARE, OTHER, SELFPAY ==
[2025-06-15 13:48] LABS: Prothrombin Time (Protime)PT. 22.5 SECONDS (11.7-14.9)
== END 2025-06-30 18:00 | disposition home or self-care (01) ==
LOC: LAB 13:18
PROVIDERS: PCP Student in an Organized Health Care Education/Training Program; Referring Provider Nurse Practitioner Family; Visit Provider Nurse Practitioner Family
DX: Z79.01 Long term (current) use of anticoagulants (principal); I48.0 Paroxysmal atrial fibrillation
CPT/HCPCS: 36415; 85610

== ENCOUNTER 2025-07-23 10:24 | Outpatient (RCR) | payer MEDICARE, OTHER, SELFPAY ==
[2025-07-23 10:52] LABS: Prothrombin Time (Protime)PT. 26.6 SECONDS (11.7-14.9)
== END 2025-07-23 18:00 | disposition home or self-care (01) ==
LOC: LAB 10:24
PROVIDERS: PCP Student in an Organized Health Care Education/Training Program; Referring Provider Nurse Practitioner Family; Visit Provider Nurse Practitioner Family
DX: Z79.01 Long term (current) use of anticoagulants (principal); I48.0 Paroxysmal atrial fibrillation
CPT/HCPCS: 36415; 85610

== ENCOUNTER 2025-08-20 10:41 | Outpatient (RCR) | payer MEDICARE, OTHER, SELFPAY ==
[2025-08-20 11:30] LABS: Prothrombin Time (Protime)PT. 21.7 SECONDS (11.7-14.9)
== END 2025-08-29 18:00 | disposition home or self-care (01) ==
LOC: LAB 10:41
PROVIDERS: PCP Student in an Organized Health Care Education/Training Program; Referring Provider Nurse Practitioner Family; Visit Provider Nurse Practitioner Family
DX: Z79.01 Long term (current) use of anticoagulants (principal); I48.0 Paroxysmal atrial fibrillation
CPT/HCPCS: 36415; 85610

== ENCOUNTER 2025-09-16 13:03 | Outpatient (RCR) | payer MEDICARE, OTHER, SELFPAY ==
[2025-09-16 13:36] LABS: Prothrombin Time (Protime)PT. 26.9 SECONDS (11.7-14.9)
== END 2025-09-16 18:00 | disposition home or self-care (01) ==
LOC: LAB 13:03
PROVIDERS: PCP Student in an Organized Health Care Education/Training Program; Referring Provider Nurse Practitioner Family; Visit Provider Nurse Practitioner Family
DX: Z79.01 Long term (current) use of anticoagulants (principal); I48.0 Paroxysmal atrial fibrillation
CPT/HCPCS: 36415; 85610